=== PATIENT | female | born 1980 | race Caucasian/White ===

== ENCOUNTER 2016-12-26 00:18 | Emergency (ER) | payer OTHER ==
[~2016-12-26] VITALS: Ht 162.6 cm; Wt 134.3 kg
[~2016-12-26 00:18] MED LIST: ACHD5005 PO; ALBU8.5H4 IH; ATEN50TA; CHLO50TA2 PO; CLON1TAB3 PO; HYDR-1231 PO; HYDR-3714 PO; HYDR-87 PO; HYDROCHLOROTHIAZIDE; IBUP-2055 PO; LEVO500T2 PO; LEVO500T80 PO; LNS30CCR; METF-478 PO; METF500T4 PO; METR500T PO; METR500T21 PO; NAPR-243 PO; Omnicef; POTA10CA43 PO; PRD20T PO; PRED20TA PO; RNT150T PO; SULF-222 PO; SULF1TAB35 PO; VNL37.5T PO; ZOLP5TAB PO; ZOLP5TAB7 PO
--- OUTSIDE RECORDS SUMMARY | 2016-12-26 00:24 | XMS REPORT | Continuity of Care Document ---
Author Author [facility] Organization [facility] Address Unknown Phone Unavailable Care Team Providers Care Medical Records Custodian Name Role Phone [facility] OF PCP Insurance Providers Payer Name Policy Number Subscriber Name Relationship [employer] [id number] Fatimah Longo Self / Same As Patient Advance Directives Directive Response Recorded Date/Time Advance Directives No 09/02/16 9:10pm Health Care Power of Sound Person No 09/02/16 9:10pm Organ Donor No 09/02/16 9:10pm Resuscitation Status Full Code 09/02/16 9:10pm Chief Complaint and Reason for Visit Chief Complaint Abdominal/GI Problems Reason for Visit [id number] Problems Active Problems Medical Problem Onset Date Status Bronchospasm with bronchitis, acute Unknown Acute Cellulitis Unknown Acute Cellulitis Unknown Acute Contusion of lower back Unknown Acute Diverticulitis Unknown Acute Spider bite Unknown Acute UTI (urinary tract infection) Unknown Acute Medications Current Home Medications Medication Dose Units Route Directions Days/Qty Instructions Start Date Chlorthalidone 50 Mg 30 09/02/16 Metformin Hcl 500 Mg 500 Mg Oral 09/02/16 Metronidazole 500 Mg 500 Mg Oral Four Times Daily for For Infection 40 09/02/16 Levofloxacin 500 Mg 500 Mg Oral Daily for Infection 10 09/02/16 Hydrocodone/Ibuprofen 1 Each 1 Each Oral Every 4HRS for Pain 20 Past Home Medications Medication Directions Ordered Status Acetaminophen/Hydrocodone Bitart 1 Each Tablet, 1 - 2 Each Oral Every 6 Hours as needed 02/27/12 Discontinued Trimethoprim/Sulfamethoxazole 1 Each Tablet, 1 Each Oral Twice A Day Discontinued Hydrocodone Bit/Acetaminophen 1 Tab Tablet, 1-2 Tab Oral Every 6 Hours as needed for Pain 11/17/14 Discontinued [Hydrochlorothiazide] , 11/17/14 Discontinued Potassium Chloride (Micro K) 10 Meq Capsule.sa, 1 Each Oral Daily With Food 05/09/15 Discontinued Trimethoprim/Sulfamethoxazole 1 Ea Tablet, 1 Tab Oral Twice A Day 05/09/15 Discontinued Hydrocodone Bit/Acetaminophen 1 Tab Tablet, 1 Tab Oral Every 4HRS as needed for Pain 05/09/15 Discontinued Prednisone 20 Mg Tablet, 40 Mg Oral Daily 05/09/15 Discontinued Albuterol Sulfate 8.5 Gm Hfa.aer.ad, 8.5 Gm Inhalation As Needed 08/29/15 Discontinued [Omnicef] , 300 Twice A Day 08/29/15 Discontinued Prednisone 20 Mg Tab, 20 Mg Oral As Directed 08/29/15 Discontinued Atenolol 50 Mg Tablet, 09/02/16 Discontinued Social History Social History Problem Response Recorded Date/Time Alcohol Use Denies Use 08/29/2015 3:29pm Recreational Drug Use No 08/29/2015 3:29pm Recent Foreign Travel No 09/02/2016 9:10pm Recent Infectious Disease Exposure No 09/02/2016 9:10pm Hospitalization with Isolation Denies 09/02/2016 9:10pm Smoking Status Current Everyday Smoker 09/02/2016 9:10pm Do you dip or chew tobacco? No 08/29/2015 3:29pm Type Used Cigarettes 09/02/2016 9:10pm Hospitalization with Isolation Denies 09/02/2016 9:10pm Query Response Start Date Stop Date Smoking Status Current Everyday Smoker Hospital Discharge Instructions No hospital discharge instructions. Plan of Care Discharge Date 09/03/16 12:16am Disposition 01 HOME, SELF-CARE Condition at Discharge Stable Instructions/Education Provided Diverticulitis (ED) Urinary Tract Infection in Women (ED) Prescriptions See Medication Section Referrals [facility] - Primary Care Physician Additional Instructions/Education CLEAR LIQUIDS--WATER, BROTH, JELLO, GATORADE NO FOOD UNTIL CLEARED BY YOUR DR TAKE YOUR REGULAR MEDICATIONS PRESCRIBED FOLLOW UP WITH [facility] IN 2 DAYS RETURN TO ER IF WORSE All discharge instructions reviewed with patient and/or family. Voiced understanding. Functional Status No functional status results. Allergies, Adverse Reactions, Alerts Allergen Type Severity Reaction Status Last Updated tramadol HCl Allergy Mild HIVES Active 05/11/12 Immunizations No immunization records. Vital Signs Acute Vital Signs Vital Response Date/Time Temperature (Fahrenheit) 97.4 degrees F (97.6 - 99.5) 09/02/2016 9:10pm Temperature (Calculated Celsius) 36.94498 degrees C (36.4 - 37.5) 09/02/2016 9:10pm Pulse Rate (adult) 84 bpm (60 - 90) 09/03/2016 12:05am Respiratory Rate 18 bpm (12 - 24) 09/03/2016 12:05am O2 Sat by Pulse Oximetry 98 % (88 - 100) 09/03/2016 12:05am Blood Pressure 148/80 mm Hg 09/03/2016 12:05am Blood Pressure Mean 108 mm Hg 09/02/2016 9:10pm Pain Numeric Pain Scale 7 09/02/2016 11:31pm Height (Feet) 5 feet 09/02/2016 9:10pm Height (Inches) 4 inches 09/02/2016 9:10pm Height (Calculated Centimeters) 162.460402 cm 09/02/2016 9:10pm Weight (Pounds) 290 pounds 09/02/2016 9:10pm Weight (Calculated Grams) 846647.566 gm 09/02/2016 9:10pm Weight (Calculated Kilograms) 131.654735 kilograms 09/02/2016 9:10pm Calculated BMI 48.75 09/02/2016 9:10pm Capillary Refill Capillary Refill Less Than 3 Seconds 09/02/2016 9:10pm Results Laboratory Results Test Name Result Units Flags Reference Collection Date/Time Result Date/ Time Comments White Blood Count 13.7 10^3/uL H 4.3-11.0 09/02/2016 9:40pm 09/02/2016 10 :24pm Red Blood Count 4.91 10^6/uL 4.35-5.85 09/02/2016 9:40pm 09/02/2016 10: 24pm Hemoglobin 15.1 G/DL 11.5-16.0 09/02/2016 9:40pm 09/02/2016 10:24pm Hematocrit 44 % 35-52 09/02/2016 9:40pm 09/02/2016 10:24pm Mean Corpuscular Volume 90 FL 80-99 09/02/2016 9:40pm 09/02/2016 10: 24pm Mean Corpuscular Hemoglobin 31 PG 25-34 09/02/2016 9:40pm 09/02/2016 10 :24pm Mean Corpuscular Hemoglobin Concent 34 G/DL 32-36 09/02/2016 9:40pm 04/2016 10:24pm Red Cell Distribution Width 13.0 % 10.0-14.5 09/02/2016 9:40pm 2015 10:24pm Platelet Count 324 10^3/uL 130-400 09/02/2016 9:40pm 09/02/2016 10: 24pm Mean Platelet Volume 10.6 FL H 7.4-10.4 09/02/2016 9:40pm 09/02/2016 10: 24pm Neutrophils (%) (Auto) 60 % 42-75 09/02/2016 9:40pm 09/02/2016 10:24pm Lymphocytes (%) (Auto) 27 % 12-44 09/02/2016 9:40pm 09/02/2016 10:24pm Monocytes (%) (Auto) 10 % 0-12 09/02/2016 9:40pm 09/02/2016 10:24pm Eosinophils (%) (Auto) 3 % 0-10 09/02/2016 9:40pm 09/02/2016 10:24pm Basophils (%) (Auto) 1 % 0-10 09/02/2016 9:40pm 09/02/2016 10:24pm Neutrophils # (Auto) 8.2 X 10^3 H 1.8-7.8 09/02/2016 9:40pm 09/02/2016 10 :24pm Lymphocytes # (Auto) 3.7 X 10^3 1.0-4.0 09/02/2016 9:40pm 09/02/2016 10 :24pm Monocytes # (Auto) 1.4 X 10^3 H 0.0-1.0 09/02/2016 9:40pm 09/02/2016 10: 24pm Eosinophils # (Auto) 0.4 10^3/uL H 0.0-0.3 09/02/2016 9:40pm 09/02/2016 10:24pm Basophils # (Auto) 0.1 10^3/uL 0.0-0.1 09/02/2016 9:40pm 09/02/2016 10: 24pm Urine Color YELLOW 09/02/2016 9:04pm 09/02/2016 9:34pm Urine Clarity CLEAR 09/02/2016 9:04pm 09/02/2016 9:34pm Urine pH 7 5-9 09/02/2016 9:04pm 09/02/2016 9:34pm Urine Specific [place] 1.010 * 1.016-1.022 09/02/2016 9:04pm 2015 9:34pm Urine Protein NEGATIVE NEGATIVE 09/02/2016 9:04pm 09/02/2016 9:34pm Urine Glucose (UA) NEGATIVE NEGATIVE 09/02/2016 9:04pm 09/02/2016 9: 34pm Urine RBC (Auto) 2+ * NEGATIVE 09/02/2016 9:04pm 09/02/2016 9:34pm Urine Ketones NEGATIVE NEGATIVE 09/02/2016 9:04pm 09/02/2016 9:34pm Urine Nitrite NEGATIVE NEGATIVE 09/02/2016 9:04pm 09/02/2016 9:34pm Urine Bilirubin NEGATIVE NEGATIVE 09/02/2016 9:04pm 09/02/2016 9: 34pm Urine Urobilinogen 1 MG/DL NORMAL 09/02/2016 9:04pm 09/02/2016 9:34pm Urine Leukocyte Esterase 3+ * NEGATIVE 09/02/2016 9:04pm 09/02/2016 9: 34pm Urine RBC 2-5 /HPF * 09/02/2016 9:04pm 09/02/2016 9:34pm Urine WBC 10-25 /HPF * 09/02/2016 9:04pm 09/02/2016 9:34pm Urine Bacteria FEW /HPF * 09/02/2016 9:04pm 09/02/2016 9:34pm Urine Squamous Epithelial Cells 5-10 /HPF 09/02/2016 9:04pm 2015 9:34pm Urine Crystals NONE /LPF 09/02/2016 9:04pm 09/02/2016 9:34pm Urine Casts NONE /LPF 09/02/2016 9:04pm 09/02/2016 9:34pm Urine Mucus NEGATIVE /LPF 09/02/2016 9:04pm 09/02/2016 9:34pm Urine Culture Indicated YES 09/02/2016 9:04pm 09/02/2016 9:34pm Sodium Level 139 MMOL/L 135-145 09/02/2016 9:40pm 09/02/2016 10:18pm Potassium Level 3.4 MMOL/L L 3.6-5.0 09/02/2016 9:40pm 09/02/2016 10: 18pm Chloride Level 105 MMOL/L 98-107 09/02/2016 9:40pm 09/02/2016 10:18pm Carbon Dioxide Level 21 MMOL/L 21-32 09/02/2016 9:40pm 09/02/2016 10: 18pm Anion Gap 13 MMOL/L 5-14 09/02/2016 9:40pm 09/02/2016 10:18pm Blood Urea Nitrogen 13 MG/DL 7-18 09/02/2016 9:40pm 09/02/2016 10:18pm Creatinine 0.73 MG/DL 0.60-1.30 09/02/2016 9:40pm 09/02/2016 10:18pm BUN/Creatinine Ratio 18 09/02/2016 9:40pm 09/02/2016 10:18pm Estimat Glomerular Filtration Rate > 60 09/02/2016 9:40pm 2015 10:18pm GFR INTERPRETIVE DATA UNITS FOR ESTIMATED GFR (eGFR): mL/min/1.73 M2 REFERENCE RANGE FOR ESTIMATED GFR (eGFR) eGFR NORMAL eGFR >60 MODERATELY DECREASED eGFR 30-59 SEVERLY DECREASED eGFR 15-29 KIDNEY FAILURE <15 (OR DIALYSIS) Glucose Level 97 MG/DL 70-105 09/02/2016 9:40pm 09/02/2016 10:18pm Calcium Level 8.7 MG/DL 8.5-10.1 09/02/2016 9:40pm 09/02/2016 10:18pm Total Bilirubin 0.4 MG/DL 0.1-1.0 09/02/2016 9:40pm 09/02/2016 10:18pm Alkaline Phosphatase 73 U/L 40-136 09/02/2016 9:40pm 09/02/2016 10: 18pm Aspartate Amino Transf (AST/SGOT) 15 U/L 5-34 09/02/2016 9:40pm 2015 10:18pm Alanine Aminotransferase (ALT/SGPT) 20 U/L 0-55 09/02/2016 9:40pm 09/02 10:18pm Total Protein 6.5 G/DL 6.4-8.2 09/02/2016 9:40pm 09/02/2016 10:18pm Albumin 3.9 G/DL 3.2-4.5 09/02/2016 9:40pm 09/02/2016 10:18pm Amylase Level 31 U/L 25-125 09/02/2016 9:40pm 09/02/2016 10:18pm Lipase 26 U/L 8-78 09/02/2016 9:40pm 09/02/2016 10:18pm Procedures No known history of procedures. Encounters Encounter Location Arrival/Admit Date Discharge/Depart Date Attending Provider Departed Emergency Room [facility] 09/02/16 8:04pm 09/03 12:16am PRINCESS SEALS DO Recent Diagnosis
[2016-12-26] MEDS ORDERED: ATEN25TA PO (00:32)
[2016-12-26] MEDS ORDERED: PROM25TA14 PO (00:32)
[2016-12-26 01:46] LABS: BASOPHILS % (AUTO) 0 % (0-10); EOSINOPHILS # (AUTO) 0.5 10^3/uL (0.0-0.3); EOSINOPHILS % (AUTO) 4 % (0-10); LYMPHOCYTES # (AUTO) 3.5 X 10^3 (1.0-4.0); LYMPHOCYTES % (AUTO) 32 % (12-44); MEAN CORPUSCULAR HEMOGLOBIN 30 PG (25-34); MEAN CORPUSCULAR HGB CONC 34 G/DL (32-36); MEAN CORPUSCULAR VOLUME 90 FL (80-99); MEAN PLATELET VOLUME 10.1 FL (7.4-10.4); MONOCYTES # (AUTO) 1.1 X 10^3 (0.0-1.0); MONOCYTES % (AUTO) 10 % (0-12); NEUTROPHILS # (AUTO) 5.8 X 10^3 (1.8-7.8); NEUTROPHILS % (AUTO) 54 % (42-75); PLATELET COUNT 310 10^3/uL (130-400); RED BLOOD COUNT 4.71 10^6/uL (4.35-5.85); RED CELL DISTRIBUTION WIDTH 13.3 % (10.0-14.5); WHITE BLOOD COUNT 10.9 10^3/uL (4.3-11.0)
[2016-12-26 02:05] LABS: ALANINE AMINOTRANSFERASE 23 U/L (0-55); ALBUMIN 3.7 G/DL (3.2-4.5); ANION GAP 9 MMOL/L (5-14); ASPARTATE AMINO TRANSFERASE 17 U/L (5-34); BILIRUBIN,TOTAL 0.2 MG/DL (0.1-1.0); BLOOD UREA NITROGEN 15 MG/DL (7-18); BUN/CREATININE RATIO 21; CALCIUM 8.4 MG/DL (8.5-10.1); CARBON DIOXIDE 22 MMOL/L (21-32); CHLORIDE 107 MMOL/L (98-107); GFR ESTIMATED > 60; GLUCOSE 109 MG/DL (70-105); POTASSIUM 3.8 MMOL/L (3.6-5.0); SODIUM 138 MMOL/L (135-145); TOTAL PROTEIN 6.2 G/DL (6.4-8.2); hs C REACTIVE PROTEIN 1.36 MG/DL (0.00-0.50)
[2016-12-26] MEDS ORDERED: AZITHROMYCIN 250 MG TAB (ZITHROMAX) PO ONE (02:30)
[2016-12-26] MEDS ORDERED: KETOROLAC 30 MG/ML VIAL IVP ONE (02:30)
--- NOTE | 2016-12-26 02:32 | ED Chest Pain ---
General Chief Complaint: Chest Wall/Rib Pain Stated Complaint: R SIDE AND BACK PAIN Nursing Triage Note: right sided chest wall pain since waking up this am. denies injury. Nursing Sepsis Screen: No Definite Risk Source: patient Exam Limitations: no limitations History of Present Illness Time seen by provider: 00:31 Initial Comments This 36-year-old woman presents to the emergency room with complaints of pain in the chest just right of center. It is worse with inspiration. She reports it feels similar to prior episodes of costochondritis and pneumonia. She is markedly hypertensive but reports blood pressure measured at home was not high. She has not yet taken her evening dose of blood pressure medications. She denies fever. She is a smoker. She has a history of COPD. She has had some cough for several days. Allergies and Home Medications Allergies Coded Allergies: tramadol HCl (Verified Allergy, Mild, HIVES, 05/11/12) Home Medications Atenolol 25 Mg Tablet 25 MG PO DAILY (Reported) Azithromycin 250 Mg Tablet #4 250 MG PO DAILY Prescribed by: JERZY CHA on 12/26/16 0241 Clonazepam 1 Mg Tablet 0.5-1 MG PO BID (Reported) TAKES 1/2 TO 1 OF A (1 MG) TABLET Ibuprofen 200 Mg Tablet 400-800 MG PO Q8H PRN PRN PAIN (Reported) TAKES 2-4 (200 MG) TABLETS Promethazine HCl 25 Mg Tablet 25 MG PO Q6H PRN PRN NAUSEA/VOMITING (Reported) Venlafaxine HCl 37.5 Mg Tab #60 37.5 MG PO BID Prescribed by: ALCON MARTINO on 10/27/16 0915 Review of Systems Constitutional: no symptoms reported EENTM: No Symptoms Reported Respiratory: See HPI Cardiovascular: See HPI Gastrointestinal: No Symptoms Reported Genitourinary: No Symptoms Reported Musculoskeletal: no symptoms reported Skin: no symptoms reported Psychiatric/Neurological: No Symptoms Reported Endocrine: No Symptoms Reported Past Jwrwbca-[id number]-Uzxfeq Hx Patient Social History Alcohol Use: Rarely Uses Recreational Drug Use: No Smoking Status: Current Everyday Smoker Type Used: Cigarettes Recent Foreign Travel: No Contact w/Someone Who Travel: No Recent Infectious Disease Expo: No Recent Hopitalizations: No Physical Abuse Screen: No Sexual Abuse: No Immunizations Up To Date Tetanus Booster (TDap): More than 5yrs PED Vaccines UTD: Yes Seasonal Allergies Seasonal Allergies: Yes Surgeries HX Surgeries: Yes (WART REMOVALS; "CYST" REMOVALS FROM SKIN OF VARIOUS PARTS OF BODY) Respiratory Hx Respiratory Disorders: Yes Respiratory Disorders: Asthma, Pneumonia, COPD Cardiovascular Hx Cardiac Disorders: Yes Cardiac Disorders: Chronic Edema/Swelling, Hypertension Neurological Hx Neurological Disorders: Yes Neurological Disorders: Headaches /Migraines Reproductive System : No Hx Reproductive Disorders: Yes Sexually Transmitted Disease: No HIV/AIDS: No Female Reproductive Disorders: Polycystic Ovarian Dis Genitourinary Hx Genitourinary Disorders: No Gastrointestinal Hx Gastrointestinal Disorders: Yes Gastrointestinal Disorders: Colitis, Gastroesophageal Reflux, Diverticulosis Musculoskeletal Hx Musculoskeletal Disorders: Yes (CHRONIC BILATERAL KNEE PAIN, chostrochrondritis) Musculoskeletal Disorders: Chronic Back Pain Endocrine Hx Endocrine Disorders: Yes ("PRE" DIABETIC--DOES NOT CHECK BLOOD SUGAR; OBESITY) Endocrine Disorders: Diabetes, Non-Insulin dep HEENT HX ENT Disorders: No Cancer Hx Cancer: No Psychosocial Hx Psychiatric Problems: Yes Behavioral Health Disorders: Sleep Difficulties, Depression Integumentary HX Skin/Integumentary Disorder: No Blood Transfusions Hx Blood Disorders: No Adverse Reaction to a Blood Tr: No Family Medical History Significant Family History: No Pertinent Family Hx Family Medial History: Alcoholism 19 FATHER 19 MOTHER Arthritis 19 MOTHER Asthma 19 MOTHER Cancer of mouth 19 FATHER Cataracts 19 MOTHER Dementia 19 MOTHER Diabetes mellitus Drug abuse 19 FATHER 19 MOTHER Fibrocystic disease of breast 19 MOTHER Headache disorder 19 MOTHER G8 SISTER Hypertension 19 MOTHER Respiratory disorder 19 FATHER 19 MOTHER Physical Exam Vital Signs Vital Sign - Last 12Hours 12/26/16 00:33 Temp 98.3 Pulse 98 Resp 16 B/P 198/119 Pulse Ox 94 O2 Delivery Room Air Capillary Refill : Less Than 3 Seconds General Appearance: No Apparent Distress WD/WN Obese HEENT: PERRL/EOMI Normal ENT Inspection Pharynx Normal Neck: Normal Inspection Respiratory: Lungs Clear Normal Breath Sounds No Accessory Muscle Use No Respiratory Distress Other (Anterior chest wall mildly tender to palpation) Cardiovascular: Regular Rate, Rhythm No Edema No Murmur Gastrointestinal: Normal Bowel Sounds Non Tender Soft Extremity: Normal Inspection Non Tender No Calf Tenderness No Pedal Edema Other (Negative Chuck) Neurologic/Psychiatric: Alert Oriented x3 No Motor/Sensory Deficits 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 Norm as Tested Skin: Normal Color Warm/Dry Progress/Results/Core Measures Results/Orders Lab Results Laboratory Tests Test 12/26/16 01:40 Range/Units Alanine Aminotransferase (ALT/SGPT) 23 0-55 U/L Albumin 3.7 3.2-4.5 G/DL Alkaline Phosphatase 83 40-136 U/L Anion Gap 9 5-14 MMOL/L Aspartate Amino Transf (AST/SGOT) 17 5-34 U/L B-Type Natriuretic Peptide 13.4 <100.0 PG/ML BUN/Creatinine Ratio 21 Basophils # (Auto) 0.0 0.0-0.1 10^3/uL Basophils (%) (Auto) 0 0-10 % Blood Urea Nitrogen 15 7-18 MG/DL C-Reactive Protein High Sensitivity 1.36 H 0.00-0.50 MG/DL Calcium Level 8.4 L 8.5-10.1 MG/DL Carbon Dioxide Level 22 21-32 MMOL/L Chloride Level 107 98-107 MMOL/L Creatinine 0.70 0.60-1.30 MG/DL D-Dimer 0.48 0.00-0.49 UG/ML Eosinophils # (Auto) 0.5 H 0.0-0.3 10^3/uL Eosinophils (%) (Auto) 4 0-10 % Estimat Glomerular Filtration Rate > 60 Glucose Level 109 H 70-105 MG/DL Hematocrit 43 35-52 % Hemoglobin 14.3 11.5-16.0 G/DL Lymphocytes # (Auto) 3.5 1.0-4.0 X 10^3 Lymphocytes (%) (Auto) 32 12-44 % Mean Corpuscular Hemoglobin 30 25-34 PG Mean Corpuscular Hemoglobin Concent 34 32-36 G/DL Mean Corpuscular Volume 90 80-99 FL Mean Platelet Volume 10.1 7.4-10.4 FL Monocytes # (Auto) 1.1 H 0.0-1.0 X 10^3 Monocytes (%) (Auto) 10 0-12 % Neutrophils # (Auto) 5.8 1.8-7.8 X 10^3 Neutrophils (%) (Auto) 54 42-75 % Platelet Count 310 130-400 10^3/uL Potassium Level 3.8 3.6-5.0 MMOL/L Red Blood Count 4.71 4.35-5.85 10^6/uL Red Cell Distribution Width 13.3 10.0-14.5 % Sodium Level 138 135-145 MMOL/L Total Bilirubin 0.2 0.1-1.0 MG/DL Total Protein 6.2 L 6.4-8.2 G/DL White Blood Count 10.9 4.3-11.0 10^3/uL My Orders Orders-JERZY PEÑALOZA MD Chest Pa/Lat (2 View) (12/26/16 00:31) BNP (12/26/16 01:23) Cbc With Automated Diff (12/26/16 01:23) Comprehensive Metabolic Panel (12/26/16 01:23) Hs C Reactive Protein (12/26/16 01:23) Fibrin Degradation Products (12/26/16 01:23) Saline Lock/Iv-Start (12/26/16 01:23) Ketorolac Injection (Toradol Injection) (12/26/16 02:30) Azithromycin Tablet (Zithromax Tablet) (12/26/16 02:30) Medications Given in ED Vital Signs/I&O Vital Sign - Last 12Hours 12/26/16 12/26/16 00:33 02:43 Temp 98.3 97.9 Pulse 98 83 Resp 16 18 B/P 198/119 Pulse Ox 94 93 O2 Delivery Room Air Room Air Blood Pressure Mean: 145 Progress Note : Progress Note Workup was essentially unremarkable. Patient was given Toradol for her pain. Blood pressure was improving with treatment of pain. She was instructed to take her medications when returning home. Azithromycin was initiated due to concern for possible early pulmonary infection with her risk factors of COPD, smoking, obesity, etc. Diagnostic Imaging Diagonstic Imaging: Xray Plain Films/CT/US/NM/MRI: chest Comments Chest x-ray viewed by me. Report not yet available. No acute abnormalities appreciated. Departure Impression Impression: Primary Impression: Atypical chest pain Disposition: HOME, SELF-CARE Condition: Improved Departure-Patient Inst. Decision time for Depature: 02:15 Referrals: [facility] (PCP/Family) Primary Care Physician Patient Instructions: Chest Pain That Is Not Caused by the Heart (DC) Add. Discharge Instructions: You may continue taking ibuprofen 800 mg 3 times daily as needed for pain. Complete your antibiotics as prescribed. Return to the emergency room if symptoms worsen. If your blood pressure does not improve with treatment of your pain and resuming atenolol, please follow-up with your primary care provider within the next few days to reassess your blood pressure therapy. All discharge instructions reviewed with patient and/or family. Voiced understanding. Scripts Azithromycin 250 Mg [id number] Mg PO DAILY #4 TAB Prov:JERZY PEÑALOZA MD 12/26/16 JERZY PEÑALOZA MD Dec 26, 2016 02:32
[2016-12-26] MEDS ORDERED: AZIT250T5 PO ×2 (02:40→02:41)
[2016-12-26 02:43] VITALS: BP 190/102
--- NOTE | 2016-12-26 08:08 | Diagnostic Imaging Report ---
INDICATION: Shortness of air, chest tightness FINDINGS: There is no focal consolidation. The heart size upper limit stable. No gross overdistention of the vascularity. No effusion or pneumothorax. IMPRESSION: No acute appearing abnormality. Dictated by: Dictated on workstation # [id number]
== END 2016-12-26 02:36 | disposition home or self-care (01) ==
LOC: EDUNIT# 00:18 → ER 00:20
DX: R07.89 Other chest pain (principal); I10 Essential (primary) hypertension; E11.9 Type 2 diabetes mellitus without complications; F17.210 Nicotine dependence, cigarettes, uncomplicated; Z79.899 Other long term (current) drug therapy
CPT/HCPCS: 36415; 71020; 80053; 83880; 85025; 85379; 86141; 96374

== ENCOUNTER → 2017-02-23 | Outpatient (CLI) | payer OTHER ==
[~2017-02-23] MED LIST changes: +ATEN25TA PO; +ATEN50TA PO; +AZIT250T5 PO; +CIPR-225 PO; +DOCU-143 PO; +HYDR-3812 PO; +HYDR-700 PO; +HYDR25TA4 PO; +IBUP-1780 PO; +PROM25TA14 PO
--- NOTE | 2017-02-23 14:20 | Diagnostic Imaging Report ---
INDICATION: Right upper quadrant abdominal pain. TECHNIQUE: Gallbladder sonography performed in the routine fashion. FINDINGS: The liver shows diffuse increased echogenicity compatible with fatty change. The liver is difficult to penetrate, and its evaluation is therefore very limited. Gallbladder shows no gallstones or gallbladder wall thickening. Common duct was not visualized. Pancreas is not seen due to overlying gas. Right kidney shows no hydronephrosis and measured 10.9 cm in length. IMPRESSION: Increased echogenicity of the liver compatible with fatty change, though liver is very difficult to evaluate due to limited penetration. Gallbladder appears unremarkable. Right kidney appears normal. Dictated by: Dictated on workstation # [id number]
== END ==
LOC: RAD 13:12
PROVIDERS: ATTEND Nurse Practitioner Family
DX: R10.11 Right upper quadrant pain (principal)
CPT/HCPCS: 76705

== ENCOUNTER → 2017-02-28 | Outpatient (CLI) | payer OTHER ==
[~2017-02-28] MED LIST changes: +CATHETER FLUSH 10 ML SYR IV PRN
--- NOTE | 2017-02-28 19:59 | Diagnostic Imaging Report ---
EXAMINATION: Hepatobiliary scan with ejection fraction. INDICATION: Right upper quadrant pain. TECHNIQUE: This study was performed following administration of 5.28 mCi of 99m technetium Choletec and one can of Ensure. FINDINGS: The gallbladder ultrasound exam performed on 02/23/2017 failed to show any sign of cholelithiasis or acute cholecystitis. On this study, there is uptake of the radiotracer by the gallbladder before 30 minutes. This would weigh against the diagnosis of acute cholecystitis. There is also extension of the radiotracer into the small bowel indicating that the common bile duct is not obstructed. The ejection fraction is 25.9% (normal greater than 35%). The reason for the diminished ejection fraction is not certain but the possibility of biliary dyskinesia should certainly be considered. IMPRESSION: 1. There is no evidence for acute cholecystitis or for obstruction of the common bile duct. 2. The ejection fraction is 25.9% and below normal limits. Dictated by: Dictated on workstation # [id number]
== END ==
LOC: CARD 12:06
PROVIDERS: ATTEND Nurse Practitioner Family
DX: R10.11 Right upper quadrant pain (principal)
CPT/HCPCS: 78227

== ENCOUNTER 2017-03-17 09:37 | Outpatient (CLI) | payer OTHER ==
[~2017-03-17] VITALS: Ht 162.6 cm; Wt 137.6 kg
[~2017-03-17 09:37] MED LIST changes: -ATEN50TA PO; -CATHETER FLUSH 10 ML SYR IV PRN; -CIPR-225 PO; -DOCU-143 PO; -HYDR-3812 PO; -HYDR-700 PO; -HYDR25TA4 PO; -IBUP-1780 PO
[2017-03-17] MEDS ORDERED: HYDR25TA4 PO (09:48)
[2017-03-17] MEDS ORDERED: ATEN50TA PO (09:48)
[2017-03-17 09:51] VITALS: BP 153/99
[2017-03-17 10:15] LABS: BASOPHILS # (AUTO) 0.1 10^3/uL (0.0-0.1); BASOPHILS % (AUTO) 1 % (0-10); EOSINOPHILS # (AUTO) 0.3 10^3/uL (0.0-0.3); EOSINOPHILS % (AUTO) 3 % (0-10); LYMPHOCYTES # (AUTO) 2.3 X 10^3 (1.0-4.0); LYMPHOCYTES % (AUTO) 22 % (12-44); MEAN CORPUSCULAR HEMOGLOBIN 30 PG (25-34); MEAN CORPUSCULAR HGB CONC 33 G/DL (32-36); MEAN CORPUSCULAR VOLUME 91 FL (80-99); MEAN PLATELET VOLUME 10.5 FL (7.4-10.4); MONOCYTES # (AUTO) 0.8 X 10^3 (0.0-1.0); MONOCYTES % (AUTO) 8 % (0-12); NEUTROPHILS # (AUTO) 6.9 X 10^3 (1.8-7.8); NEUTROPHILS % (AUTO) 67 % (42-75); PLATELET COUNT 294 10^3/uL (130-400); RED BLOOD COUNT 5.05 10^6/uL (4.35-5.85); RED CELL DISTRIBUTION WIDTH 13.3 % (10.0-14.5); WHITE BLOOD COUNT 10.4 10^3/uL (4.3-11.0)
== END 2017-03-17 11:06 | disposition home or self-care (01) ==
LOC: PREOP 09:37
PROVIDERS: ATTEND Surgery
DX: Z01.818 Encounter for other preprocedural examination (principal); K82.8 Other specified diseases of gallbladder
CPT/HCPCS: 36415; 85025; 87081

== ENCOUNTER 2017-03-24 08:00 | Day surgery (SDC) | payer OTHER ==
[~2017-03-24] VITALS: Ht 162.6 cm; Wt 137.6 kg
[~2017-03-24 08:00] MED LIST changes: +ATEN50TA PO; +HYDR25TA4 PO
[2017-03-24] MEDS ORDERED: FAMOTIDINE 20MG/2ML IV (PEPCID) IV ONE (08:15)
[2017-03-24] MEDS ORDERED: LACTATED RINGERS 1,000 ML IV PRN ×2 (08:15→10:54)
[2017-03-24 08:16] VITALS: BP 183/96
--- NOTE | 2017-03-24 08:20 | Progress Note-Pre Operative ---
Pre-Operative Progress Note H&P Reviewed The H&P was reviewed, patient examined and no changes noted. Date H&P Reviewed: Mar 24, 2017 Time H&P Reviewed: 08:19 Pre-Operative Diagnosis: biliary dyskinesia MARCELINA BRYAN DO Mar 24, 2017 8:20 am
[2017-03-24] MEDS ORDERED: ceFAZolin 3 GM/NS 50 ML IVPB IV ONE ×2 (08:45)
[2017-03-24] MEDS ORDERED: LIDOCAINE 1% INJ 20 ML (XYLOCAINE) VIAL ONE (09:20)
[2017-03-24] MEDS ORDERED: BUPIVACAINE 0.5% 30 ML (SENSORCAINE) VIAL ONE (09:20)
[2017-03-24] MEDS ORDERED: DOCU-143 PO (09:37)
[2017-03-24] MEDS ORDERED: HYDR-3812 PO (09:37)
--- NOTE | 2017-03-24 09:39 | Discharge Inst-Simple/Standard ---
Discharge Inst-Standard Discharge Medications New, Converted or Re-Newed RX: RX on Chart Patient Instructions/Follow Up Plan of Care/Instructions/FU: Follow up with Dr. Granados in 2 weeks. Activity as Tolerated: No Discharge Diet: No Restrictions Other Inst to Patient Follow up Appt: Make appointment for 2 weeks. Instructions: No lifting greater than 10 pounds. No strenuous activity. May shower in 24 hours, no tub bath or soaking. Use incentive spirometer at home as directed. No Smoking Skin/Wound Care: May remove bandages. You need to leave the white strips over incision on they will fall off on their own. Symptoms to Report: Appetite Changes, Extremity Discoloration, Numbness/Tingling, Swelling Increased , Bleeding Excessive, Eyesight Changes, Pain Increased, Urine Color Change, Constipation(Persistent), Fever over 101 degree F, Pain/Pressure in chest, Urinating Difficulty, Cough Up/Vomit Blood, Heart Beat Irreg/Pounding, Pain/ Pressure in jaw, Vaginal Bleeding Increase, Cramps in feet or legs, Lightheadedness, Pain/Pressure in shoulder, Diarrhea(Persistent), Memory Changes Suddenly, Questions/Concerns, Weight gain consecutive days, Dizziness/ Fainting, Nausea/Vomiting, Shortness of Breath, Weight gain over 2 pounds. If eyes or skin turn yellow notify physician. If questions or concerns contact your physician Or seek help at emergency department. ALICE MCKINNEY APRN Mar 24, 2017 09:38
[2017-03-24] MEDS ORDERED: MIDAZOLAM 2 MG/2 ML (VERSED) VIAL ONE (09:44)
[2017-03-24] MEDS ORDERED: fentaNYL INJECTION 100 MCG/2 ML AMP ONE (09:44)
[2017-03-24] MEDS ORDERED: LIDOCAINE JELLY 2% (XYLOCAINE) 5 ML TUBE ONE (09:44)
[2017-03-24] MEDS ORDERED: LIDOCAINE PF 2% 10 ML (XYLOCAINE) AMP ONE (09:44)
[2017-03-24] MEDS ORDERED: ONDANSETRON 4 MG/2 ML (SDV) Z0FRAN ONE (09:44)
[2017-03-24] MEDS ORDERED: proPOfol 200 MG/20 ML (DIPRIVAN) VIAL IV ONE (09:44)
[2017-03-24] MEDS ORDERED: ROCURONIUM 50 MG/5 ML (ZEMURON) VIAL IV ONE (09:44)
[2017-03-24] MEDS ORDERED: LACTATED RINGERS 1,000 ML IV ONE (09:44)
[2017-03-24] MEDS ORDERED: NEOSTIGMINE (BLOXIVERZ ) 1 MG/1ML 10 ML VIAL ONE (11:13)
[2017-03-24] MEDS ORDERED: GLYCOPYRROLATE 0.2 MG/ML (ROBINUL) 2 ML VIAL ONE (11:13)
[2017-03-24] MEDS ORDERED: SEVOFLURANE (ULTANE) 15 ML INHAL SOLN ONE ×3 (11:13→11:22)
--- NOTE | 2017-03-24 11:13 | Progress Note-Post Operative ---
Post-Operative Progess Note Surgeon (s)/Box Loader (s) Surgeon MARCELINA BRYAN DO Box Loader: Dr. Sauceda Pre-Operative Diagnosis biliary dyskinesia Post-Operative Diagnosis same Post-Op Procedure Note Date of Procedure: Mar 24, 2017 Name of Procedure Performed: lap edmundo c ioc Description of the Procedure: gallbladder removed Findings of the Procedure adhesions Anesthesia Type general Estimated blood loss (mL): minimal Specimen(s) collected/removed gallbladder MARCELINA BRYAN DO Mar 24, 2017 11:13 am
[2017-03-24] MEDS ORDERED: MEPERIDINE (DEMEROL) INJ 50 MG/ML IVP PRN (11:45)
[2017-03-24] MEDS ORDERED: ONDANSETRON 4 MG/2 ML (SDV) Z0FRAN IVP PRN (11:45)
[2017-03-24] MEDS ORDERED: RT-ALBUTEROL SULF 2.5 MG/3 ML PRE-MIX VIAL INH ONE (11:45)
[2017-03-24] MEDS: fentaNYL INJECTION 100 MCG/2 ML AMP IVP PRN ×3 (11:50→12:03)
[2017-03-24 12:30] VITALS: BP 145/94
[2017-03-24 13:00] VITALS: BP 145/94
[2017-03-24 13:30] VITALS: BP_SYST 140; BP_SYST 183; BP_DIAS 85; BP_DIAS 96
--- NOTE | 2017-03-24 17:05 | Diagnostic Imaging Report ---
EXAMINATION: Intraoperative cholangiogram. Laparoscopic cholecystectomy was performed by Dr. Granados with 4 cc of Omnipaque 300 utilized. INDICATION: Abdominal pain. FLUOROSCOPY TIME: 10 seconds of fluoroscopy time. FINDINGS: There is a normal caliber of the CBD with no filling defects to suggest the stone or obstruction. Prompt emptying into the duodenum is seen. IMPRESSION: No evidence of CBD stones or obstruction. Dictated by: Dictated on workstation # [id number]
--- NOTE | 2017-03-25 04:17 | OPERATIVE REPORT ---
DATE OF SERVICE: 03/24/2017 PREOPERATIVE DIAGNOSIS: Biliary dyskinesia. POSTOPERATIVE DIAGNOSIS: Biliary dyskinesia. PROCEDURE: Laparoscopic cholecystectomy with intraoperative cholangiogram. SURGEON: Marcelina Granados DO FERRYBOAT TICKET TAKER: Charanjit Sauceda DO, to assist in retraction, dissection and closure. ANESTHESIA: General. ESTIMATED BLOOD LOSS: Minimal. COMPLICATIONS: None. INDICATIONS: The patient is a 36-year-old female who has been having symptoms consistent with biliary dyskinesia. She had an ultrasound and a HIDA scan that is consistent with biliary dyskinesia. She understands risks and benefits of procedure and wishes to proceed with the procedure. Consent was signed and in chart. PROCEDURE: The patient was taken to the operating suite. She was prepped and draped in a sterile fashion. A surgical pause was performed. Local anesthetic was infiltrated prior to incisions. An incision was made just superior to the umbilicus. Dissection was taken down to the fascia which was then scored, grasped with Kochers and elevated. The abdomen was then entered. 0 Vicryl was placed on the fascia in a [id number]-fpasm fashion. A balloon trocar was then placed in the abdomen, pneumoperitoneum was achieved. Under direct visualization of the laparoscope a 5 mm trocar was placed in the subxiphoid region and two 5 mm trocars were placed in the right upper quadrant. The liver was slightly enlarged. The gallbladder had some small adhesions to it. These were then bluntly taken down with a [place]. After the gallbladder was grasped and elevated. The cystic duct and cystic artery were then dissected out. A clip was placed on the distal portion of the cystic duct and clips were placed on the proximal and distal portion of the cystic artery. The cystic duct was then partially transected and an Arrow catheter was then inserted and cholangiogram was performed. There was no filling defects and contrast made its way into the duodenum. The Arrow catheter was then removed and clips were placed on the proximal portion of the cystic duct and then the cystic duct was completely transected. The cystic artery was then completely transected. Then, hook cautery was used to dissect the gallbladder from the gallbladder fossa, achieving hemostasis. In retracting the gallbladder, a hole was created in the gallbladder, spilling bile, which was then irrigated and suctioned. Hemostasis had been achieved. The gallbladder was completely removed through the 12 mm trocar site. Copious amount of irrigation was used to irrigate the abdomen. Hemostasis had been achieved. The abdomen was then desufflated, the trocars were removed. The 12 mm fascial defect was closed with the previously placed 0 Vicryl suture. A total of 20 mL of 0.5% Marcaine and 1% lidocaine in a 50/50 ratio was used to anesthetize all of the trocar sites. The skin was then closed using 4-0 Vicryl in a subcuticular fashion. The area was then washed and dried. Mastisol and Steri-Strips were placed. Sterile bandages were applied. The patient tolerated the procedure well without complication. She was taken to the recovery room in stable condition. Job ID: [id number] DocumentID: [id number] Dictated Date: 03/24/2017 14:45:38 Photonics Engineer Date: 03/25/2017 04:17:13 Dictated By: MARCELINA GRANADOS DO
== END 2017-03-24 13:30 | disposition home or self-care (01) ==
LOC: SDC 08:00
PROVIDERS: ATTEND Surgery
DX: K81.1 Chronic cholecystitis (principal)
CPT/HCPCS: 84703; 88304; 94664

== ENCOUNTER 2017-04-06 14:29 | Observation (INO) | payer OTHER ==
[~2017-04-06] VITALS: Ht 162.6 cm; Wt 138.0 kg
[~2017-04-06 14:29] MED LIST changes: +DOCU-143 PO; +HYDR-3812 PO
[2017-04-06 14:56] LABS: BILIRUBIN,URINE NEGATIVE (NEGATIVE); KETONES,URINE NEGATIVE (NEGATIVE); LEUKOCYTE ESTERASE ,URINE 1+ (NEGATIVE); NITRITE,URINE NEGATIVE (NEGATIVE); PH,URINE 6 (5-9); PROTEIN,URINE 1+ (NEGATIVE); UROBILINOGEN,URINE NORMAL (NORMAL)
--- NOTE | 2017-04-06 15:01 | ED Abdominal Pain ---
General Chief Complaint: Abdominal/GI Problems Stated Complaint: PAIN IN LEFT SIDE Nursing Triage Note: AMBULATED TO ROOM 07 WITH COMPLAINTS OF LEFT LOWER ABD PAIN FOR X3 DAYS. STATES IT FEELS LIKE HER DIVERTICULITIS. Sepsis Screen: No Definite Risk Source of Information: Patient History of Present Illness Time Seen By Provider: 14:45 Initial Comments C/O SUPRAPUBIC PAIN, RADIATING TO LLQ AND LEFT FLANK X 3 DAYS PAIN IS CONSTANT, AND WORSE WITH MOVEMENTS OR STRETCHING + NAUSEA, NO VOMITING THOUGHT SHE WAS CONSTIPATED, SO SHE HAS HAD 2 DOSES OF MAG CITRATE AND 3 DOSES OF MILK OF MAGNESIA FOR THE LAST 2 DAYS--NOW WITH WATERY STOOLS, AND HAS HAD 4 TODAY,. NO BLACK/ BLOODY /TARRY STOOLS BEGAN RUNNING FEVER UP TO 100.9 LAST NIGHT NO URINARY SYMPTOMS STATES IT FEELS LIKE DIVERTICULITIS PT SEEN AT [facility] YESTERDAY BY AVA FRANKS, NO TESTS DONE, NO RX PT HAD [facility] 2 WEEKS AGO 03/24/[address] BRYAN SEEN TODAY FOR SCHEDULED POST OP FOLLOW UP, AND STATES HE SENT HER HERE FOR THIS PAIN--NO CALL FROM HIM. PCP: [facility], AVA FRANKS Allergies and Home Medications Allergies Coded Allergies: tramadol HCl (Verified Allergy, Mild, HIVES, 03/17/17) Home Medications Atenolol 50 Mg Tablet, 75 MG PO DAILY, (Reported) Clonazepam 1 Mg Tablet, 0.5-1 MG PO BID, (Reported) TAKES 1/2 TO 1 OF A (1 MG) TABLET Docusate Sodium 100 Mg Capsule, 100 MG PO BID, #60 Prescribed by: ALICE LEE on 03/24/17 0937 Hydrochlorothiazide 25 Mg Tablet, 25 MG PO DAILY, (Reported) Hydrocodone/Acetaminophen 1 Each Tablet, 1 EA PO Q4-6HR PRN for PAIN-MODERATE TO SEVERE, #30 Ref 0 Prescribed by: ALICE LEE on 03/24/17 0937 Review of Systems Constitutional: see HPI, fever EENTM: No Symptoms Reported Respiratory: No Symptoms Reported Cardiovascular: No Symptoms Reported Gastrointestinal: See HPI, Abdominal Pain, Diarrhea, Nausea, Denies Poor Fluid Intake, Denies Rectal Bleeding, Denies Vomiting Genitourinary: No Symptoms Reported Musculoskeletal: no symptoms reported Skin: no symptoms reported Psychiatric/Neurological: No Symptoms Reported Endocrine: No Symptoms Reported Hematologic/Lymphatic: No Symptoms Reported Past Vqwbwtp-Nllqle-Lzqmke Hx Patient Social History Alcohol Use: Rarely Uses Recreational Drug Use: Yes (THC IN PAST) Smoking Status: Current Everyday Smoker (UP TO 1 PPD) Type Used: Cigarettes Recent Foreign Travel: No Contact w/Someone Who Travel: No Recent Infectious Disease Expo: No Recent Hopitalizations: No Immunizations Up To Date Tetanus Booster (TDap): More than 5yrs PED Vaccines UTD: Yes Seasonal Allergies Seasonal Allergies: Yes (MILD) Surgeries HX Surgeries: Yes (WART REMOVALS; "CYST" REMOVALS FROM SKIN OF VARIOUS PARTS OF BODY) Surgeries: Gallbladder Respiratory Hx Respiratory Disorders: Yes Respiratory Disorders: Asthma Cardiovascular Hx Cardiac Disorders: Yes (SWELLING AT TIMES) Cardiac Disorders: Chronic Edema/Swelling, Hypertension Neurological Hx Neurological Disorders: Yes Neurological Disorders: Headaches /Migraines Reproductive System : No Hx Reproductive Disorders: Yes Sexually Transmitted Disease: No HIV/AIDS: No Female Reproductive Disorders: Menstrual Problems, Polycystic Ovarian Dis Genitourinary Hx Genitourinary Disorders: No Gastrointestinal Hx Gastrointestinal Disorders: Yes (SANTORO DISEASE-FATTY LIVER) Gastrointestinal Disorders: Colitis, Gastroesophageal Reflux, Diverticulosis Musculoskeletal Hx Musculoskeletal Disorders: Yes (CHRONIC BILATERAL KNEE PAIN, chostrochrondritis) Musculoskeletal Disorders: Chronic Back Pain Endocrine Hx Endocrine Disorders: Yes ("PRE" DIABETIC--DOES NOT CHECK BLOOD SUGAR; OBESITY) Endocrine Disorders: Diabetes, Non-Insulin dep HEENT HX ENT Disorders: Yes (GLASSES) Loss of Vision: Bilateral Hearing Impairment: Denies Cancer Hx Cancer: No Psychosocial Hx Psychiatric Problems: Yes Behavioral Health Disorders: Sleep Difficulties, Depression Integumentary HX Skin/Integumentary Disorder: No Blood Transfusions Hx Blood Disorders: No Adverse Reaction to a Blood Tr: No Family Medical History Significant Family History: No Pertinent Family Hx Family Medial History: Alcoholism 19 FATHER 19 MOTHER Arthritis 19 MOTHER Asthma 19 MOTHER Cancer of mouth 19 FATHER Cataracts 19 MOTHER Dementia 19 MOTHER Diabetes mellitus Drug abuse 19 FATHER 19 MOTHER Fibrocystic disease of breast 19 MOTHER Headache disorder 19 MOTHER G8 SISTER Hypertension 19 MOTHER Respiratory disorder 19 FATHER 19 MOTHER Physical Exam Vital Signs VS - Last 72 Hours, by Label 04/06/17 14:45 Temp 96.3 Pulse 117 Resp 16 B/P (MAP) 161/90 Pulse Ox 97 Capillary Refill : Less Than 3 Seconds General Appearance: WD/WN, no apparent distress, obese Neck: normal inspection Respiratory: normal breath sounds, no respiratory distress, no accessory muscle use Cardiovascular: normal peripheral pulses, regular rate, rhythm, no edema, no JVD, no murmur Gastrointestinal: normal bowel sounds, soft, no organomegaly, no pulsatile mass , tenderness (SUPRAPUBIC, LLQ AND LEFT MID ABDOMEN WITH MODERATE TENDERNESS) Extremities: normal inspection Back: CVA tenderness (L) Neurologic/Psychiatric: casing fluid tender II-XII nml as tested, no motor/sensory deficits, alert, normal mood/affect, oriented x 3 Skin: normal color, warm/dry Progress/Results/Core Measures Results/Orders Lab Results Laboratory Tests Test 04/06/17 14:46 04/06/17 15:15 Range/Units Urine Color YELLOW Urine Clarity SLIGHTLY CLOUDY Urine pH 6 5-9 Urine Specific Raymond 1.015 L 1.016-1.022 Urine Protein 1+ H NEGATIVE Urine Glucose (UA) NEGATIVE NEGATIVE Urine Ketones NEGATIVE NEGATIVE Urine Nitrite NEGATIVE NEGATIVE Urine Bilirubin NEGATIVE NEGATIVE Urine Urobilinogen NORMAL NORMAL MG/DL Urine Leukocyte Esterase 1+ H NEGATIVE Urine RBC (Auto) 3+ H NEGATIVE Urine RBC 0-2 /HPF Urine WBC 0-2 /HPF Urine Squamous Epithelial Cells 5-10 /HPF Urine Crystals NONE /LPF Urine Bacteria TRACE /HPF Urine Casts NONE /LPF Urine Mucus NEGATIVE /LPF Urine Culture Indicated NO White Blood Count 16.2 H 4.3-11.0 10^3/uL Red Blood Count 5.23 4.35-5.85 10^6/uL Hemoglobin 15.8 11.5-16.0 G/DL Hematocrit 47 35-52 % Mean Corpuscular Volume 91 80-99 FL Mean Corpuscular Hemoglobin 30 25-34 PG Mean Corpuscular Hemoglobin Concent 33 32-36 G/DL Red Cell Distribution Width 13.1 10.0-14.5 % Platelet Count 332 130-400 10^3/uL Mean Platelet Volume 10.4 7.4-10.4 FL Neutrophils (%) (Auto) 71 42-75 % Lymphocytes (%) (Auto) 19 12-44 % Monocytes (%) (Auto) 7 0-12 % Eosinophils (%) (Auto) 2 0-10 % Basophils (%) (Auto) 0 0-10 % Neutrophils # (Auto) 11.5 H 1.8-7.8 X 10^3 Lymphocytes # (Auto) 3.1 1.0-4.0 X 10^3 Monocytes # (Auto) 1.2 H 0.0-1.0 X 10^3 Eosinophils # (Auto) 0.3 0.0-0.3 10^3/uL Basophils # (Auto) 0.1 0.0-0.1 10^3/uL Neutrophils % (Manual) 64 % Lymphocytes % (Manual) 31 % Monocytes % (Manual) 1 % Eosinophils % (Manual) 4 % Basophils % (Manual) 0 % Band Neutrophils 0 % Blood Morphology Comment NORMAL Sodium Level 140 135-145 MMOL/L Potassium Level 4.0 3.6-5.0 MMOL/L Chloride Level 106 98-107 MMOL/L Carbon Dioxide Level 27 21-32 MMOL/L Anion Gap 7 5-14 MMOL/L Blood Urea Nitrogen 10 7-18 MG/DL Creatinine 0.73 0.60-1.30 MG/DL Estimat Glomerular Filtration Rate > 60 BUN/Creatinine Ratio 14 Glucose Level 100 70-105 MG/DL Calcium Level 9.0 8.5-10.1 MG/DL Total Bilirubin 0.4 0.1-1.0 MG/DL Aspartate Amino Transf (AST/SGOT) 15 5-34 U/L Alanine Aminotransferase (ALT/SGPT) 26 0-55 U/L Alkaline Phosphatase 85 40-136 U/L Total Protein 7.0 6.4-8.2 G/DL Albumin 4.1 3.2-4.5 G/DL Amylase Level 33 25-125 U/L Lipase 16 8-78 U/L My Orders Orders - PRINCESS SEALS DO Ua Culture If Indicated (04/06/17 14:46) Urine Bedside (04/06/17 14:46) Saline Lock/Iv-Start (04/06/17 14:52) Amylase (04/06/17 14:52) Cbc With Automated Diff (04/06/17 14:52) Comprehensive Metabolic Panel (04/06/17 14:52) Lipase (04/06/17 14:52) Ct Abdomen/Pelvis W (04/06/17 15:18) Acute Abd Series (04/06/17 15:18) Iohexol Injection (Omnipaque 350 Mg/Ml 1 (04/06/17 15:30) Ns (Ivpb) (Sodium Chloride 0.9% Ivpb Bag (04/06/17 15:30) Manual Differential (04/06/17 15:15) Ondansetron Injection (Zofran Injectio (04/06/17 16:00) Medications Given in ED Current Medications Medications Dose Ordered Sig/Nemo Route Start Time Stop Time Status Last Admin Dose Admin Iohexol 100 ml ONCE ONCE IV 04/06/17 15:30 04/06/17 15:31 DC 04/06/17 15:37 100 ML Ondansetron HCl 4 mg ONCE ONCE IVP 04/06/17 16:00 04/06/17 16:01 DC 04/06/17 16:05 4 MG Sodium Chloride 100 ml ONCE ONCE IV 04/06/17 15:30 04/06/17 15:31 DC 04/06/17 15:37 80 ML Vital Signs/I&O Vital Sign - Last 12Hours 04/06/17 14:45 Temp 96.3 Pulse 117 Resp 16 B/P (MAP) 161/90 Pulse Ox 97 Blood Pressure Mean: 113 Point of Care Testing Urine -Bedside: Negative Diagnostic Imaging Comments ACUTE ABDOMEN XRAYS--NO ACUTE PROCESS CT ABDOMEN/PELVIS--DIVERTICULITIS, WITH COLITIS PROXIMAL TO AREA OF DIVERTICULITIS PER DR. BOLANOS VIA PHONE AT 1556 Reviewed: Reviewed by Me Departure Communication Progress Notes 8773--SPOKE WITH DR. BRYAN--ADVISES TO ADMIT TO MEDICINE SERVICE AND HE WILL SEE PT IN CONSULT. ADVISES NPO AND GIVE CIPRO AND FLAGYL 1601--SPOKE WITH DR. ABEBE, ACCEPTS PT FOR ADMIT Impression Impression: Primary Impression: Diverticulitis Disposition: ADMITTED INPATIENT Condition: Stable Decision to Admit Reason: Admit from ER (General) Decision to Admit/Date: April 06, 2017 Time/Decision to Admit Time: 16:00 Departure-Patient Inst. Referrals: CORBY WALTERS DO (PCP) Primary Care Physician NUZHAT FRANKS (Family) Primary Care Physician PRINCESS SEALS DO April 06, 2017 15:01
[2017-04-06 15:06] LABS: WBC,URINE 0-2 /HPF
[2017-04-06 15:22] LABS: BASOPHILS # (AUTO) 0.1 10^3/uL (0.0-0.1); BASOPHILS % (AUTO) 0 % (0-10); EOSINOPHILS # (AUTO) 0.3 10^3/uL (0.0-0.3); EOSINOPHILS % (AUTO) 2 % (0-10); LYMPHOCYTES # (AUTO) 3.1 X 10^3 (1.0-4.0); LYMPHOCYTES % (AUTO) 19 % (12-44); MEAN CORPUSCULAR HEMOGLOBIN 30 PG (25-34); MEAN CORPUSCULAR HGB CONC 33 G/DL (32-36); MEAN CORPUSCULAR VOLUME 91 FL (80-99); MEAN PLATELET VOLUME 10.4 FL (7.4-10.4); MONOCYTES # (AUTO) 1.2 X 10^3 (0.0-1.0); MONOCYTES % (AUTO) 7 % (0-12); NEUTROPHILS # (AUTO) 11.5 X 10^3 (1.8-7.8); NEUTROPHILS % (AUTO) 71 % (42-75); PLATELET COUNT 332 10^3/uL (130-400); RED BLOOD COUNT 5.23 10^6/uL (4.35-5.85); RED CELL DISTRIBUTION WIDTH 13.1 % (10.0-14.5); WHITE BLOOD COUNT 16.2 10^3/uL (4.3-11.0)
[2017-04-06] MEDS ORDERED: NS 100 ML (IVPB) BAG IV ONE (15:30)
[2017-04-06] MEDS ORDERED: IOHEXOL 350 MG/ML 100 ML (OMNIPAQUE 350) VIAL IV ONE (15:30)
[2017-04-06 15:40] LABS: BAND NEUTROPHILS 0 %; BASOPHILS % (MANUAL) 0 %; EOSINOPHILS % (MANUAL) 4 %; LYMPHOCYTES % (MANUAL) 31 %; NEUTROPHILS % (MANUAL) 64 %
[2017-04-06 15:48] LABS: ALANINE AMINOTRANSFERASE 26 U/L (0-55); ALBUMIN 4.1 G/DL (3.2-4.5); AMYLASE 33 U/L (25-125); ANION GAP 7 MMOL/L (5-14); ASPARTATE AMINO TRANSFERASE 15 U/L (5-34); BILIRUBIN,TOTAL 0.4 MG/DL (0.1-1.0); BLOOD UREA NITROGEN 10 MG/DL (7-18); BUN/CREATININE RATIO 14; CARBON DIOXIDE 27 MMOL/L (21-32); CHLORIDE 106 MMOL/L (98-107); CREATININE SERUM 0.73 MG/DL (0.60-1.30); GFR ESTIMATED > 60; GLUCOSE 100 MG/DL (70-105); LIPASE 16 U/L (8-78); SODIUM 140 MMOL/L (135-145)
[2017-04-06] MEDS ORDERED: ONDANSETRON 4 MG/2 ML (SDV) Z0FRAN IVP ONE (16:00)
--- NOTE | 2017-04-06 16:00 | Diagnostic Imaging Report ---
INDICATION: Abdominal pain post cholecystectomy. FINDINGS: A PA chest and supine and upright abdominal images were obtained. There is contrast in the kidneys from prior CT. The bowel gas pattern is normal. There is no retroperitoneal free air. There are no pathologic masses or calcifications seen. IMPRESSION: Negative abdomen series. Dictated by: Dictated on workstation # [id number]
--- NOTE | 2017-04-06 16:07 | Diagnostic Imaging Report ---
PROCEDURE: CT abdomen and pelvis with contrast. TECHNIQUE: Multiple contiguous axial images were obtained through the abdomen and pelvis after administration of intravenous contrast. INDICATION: Left lower quadrant and groin pain. Nausea and vomiting. CONTRAST: 100 mL of Omnipaque 350 was administered intravenously. FINDINGS: The lung bases appear clear. The liver, spleen, and pancreas appear unremarkable. Cholecystectomy clips are seen. There are bilateral adrenal nodules measuring 2.3 cm on the left and 1.9 cm on the right side. The low density of these nodules is in favor of adenomas and they appear similar to 09/02/2016. The kidneys have symmetric enhancement and contrast excretion. There is no hydronephrosis. There is diverticulitis with inflammation around the sigmoid colon. There is, however, no abscess or significant fluid collection seen. The proximal segments of the colon appear contracted with mild wall thickening. This could be related to a nonspecific colitis in the proximal segments. The small bowel loops are normal in caliber. The appendix appears normal. The abdominal aorta is normal in size with no periaortic significantly enlarged lymph node seen. The osseous structures demonstrate mild degenerative changes in the SI joints with sclerotic changes. IMPRESSION: 1. There is sigmoid diverticulitis. No abscess. 2. The rest of the colon proximal to the sigmoid demonstrates a contracted and thickened appearance which might relate to superimposed inflammatory or infectious colitis on top of the sigmoid diverticulitis. Correlate clinically and with followup colonoscopy. 3. The findings were discussed with Dr. Hill at the time of dictation. Dictated by: Dictated on workstation # [id number]
[2017-04-06] MEDS ORDERED: CIPROFLOXACIN IV 400MG/200ML 200 ML IV ONE (16:15)
[2017-04-06] MEDS ORDERED: fentaNYL INJECTION 100 MCG/2 ML AMP IVP STA (16:16)
[2017-04-06 16:50] VITALS: BP 135/71
[2017-04-06] MEDS ORDERED: D5 1/2 NS 1000 ML IV SOLUTION 1,000 ML IV ONE (17:13)
[2017-04-06] MEDS ORDERED: metroNIDAZOLE 500MG/100ML IVPB 100 ML ONE (17:13)
[2017-04-06] MEDS ORDERED: ONDANSETRON 4 MG/2 ML (SDV) Z0FRAN IV PRN (17:30)
[2017-04-06] MEDS ORDERED: CATHETER FLUSH 10 ML SYR IV PRN (17:30)
[2017-04-06] MEDS: fentaNYL INJECTION 100 MCG/2 ML AMP IV PRN ×3 (17:48→22:21)
--- NOTE | 2017-04-06 17:49 | Consultation ---
History of Present Illness History of Present Illness Patient Consulted On(phill/time) 04/06/17 17:43 Date of Admission History of Present Illness Patient came into the ER today with pain to the left upper and lower quadrant. She reports about 3 days of diarrhea. She states she tried to have bowel movement but never felt completely empty. She report trying so many OTC meds but no relief. She recently had a lap edmundo fone about [address] of the abdomen and pelvis peform. It showed diverticulitis of the sigmoid colon. Allergies and Home Medications Allergies Coded Allergies: tramadol HCl (Verified Allergy, Mild, HIVES, 03/17/17) Home Medications Atenolol 50 Mg Tablet, 75 MG PO DAILY, (Reported) LAST FILLED #45 01-26-17 TAKES 1 & 1/2 (50MG) TABLETS Ciprofloxacin HCl 500 Mg Tablet, 500 MG PO BID for 10 Days Prescribed by: PAMDA NICHOLS on 04/07/17 1222 Clonazepam 1 Mg Tablet, 0.5-1 MG PO BID PRN for ANXIETY, (Reported) TAKES 1/2-1 (1MG) TABLET Hydrochlorothiazide 25 Mg Tablet, 25 MG PO DAILY, (Reported) LAST FILLED #30 17 Hydroxyzine HCl 25 Mg Tablet, 25-50 MG PO HS PRN for SLEEP, (Reported) Ibuprofen 800 Mg Tablet, 800 MG PO Q8H PRN for PAIN-MILD, (Reported) Metronidazole 500 Mg Tablet, 500 MG PO TID for 7 Days Prescribed by: PADMA NICHOLS on 04/07/17 1222 Past Jayhuoe-Hymqkw-Luixqf Hx Patient Social History Alcohol Use: Rarely Uses Recreational Drug Use: Yes (THC IN PAST) Smoking Status: Current Everyday Smoker Type Used: Cigarettes Recent Foreign Travel: No Contact w/Someone Who Travel: No Recent Infectious Disease Expo: No Recent Hopitalizations: No Physical Abuse Screen: No Sexual Abuse: No Immunizations Up To Date Tetanus Booster (TDap): More than 5yrs PED Vaccines UTD: Yes Seasonal Allergies Seasonal Allergies: Yes (MILD) Surgeries HX Surgeries: Yes (WART REMOVALS; "CYST" REMOVALS FROM SKIN OF VARIOUS PARTS OF BODY) Surgeries: Gallbladder Respiratory Hx Respiratory Disorders: Yes Respiratory Disorders: Asthma Cardiovascular Hx Cardiac Disorders: Yes (SWELLING AT TIMES) Cardiac Disorders: Chronic Edema/Swelling, Hypertension Neurological Hx Neurological Disorders: Yes Neurological Disorders: Headaches /Migraines Reproductive System : No Hx Reproductive Disorders: Yes Sexually Transmitted Disease: No HIV/AIDS: No Female Reproductive Disorders: Menstrual Problems, Polycystic Ovarian Dis Genitourinary Hx Genitourinary Disorders: No Gastrointestinal Hx Gastrointestinal Disorders: Yes (SANTORO DISEASE-FATTY LIVER) Gastrointestinal Disorders: Colitis, Gastroesophageal Reflux, Diverticulosis Musculoskeletal Hx Musculoskeletal Disorders: Yes (CHRONIC BILATERAL KNEE PAIN, chostrochrondritis) Musculoskeletal Disorders: Chronic Back Pain Endocrine Hx Endocrine Disorders: Yes ("PRE" DIABETIC--DOES NOT CHECK BLOOD SUGAR; OBESITY) Endocrine Disorders: Diabetes, Non-Insulin dep HEENT HX ENT Disorders: Yes (GLASSES) Loss of Vision: Bilateral Hearing Impairment: Denies Cancer Hx Cancer: No Psychosocial Hx Psychiatric Problems: Yes Behavioral Health Disorders: Sleep Difficulties, Depression Integumentary HX Skin/Integumentary Disorder: No Blood Transfusions Hx Blood Disorders: No Adverse Reaction to a Blood Tr: No Family Medical History Significant Family History: No Pertinent Family Hx Family Medial History: Alcoholism 19 FATHER 19 MOTHER Arthritis 19 MOTHER Asthma 19 MOTHER Cancer of mouth 19 FATHER Cataracts 19 MOTHER Dementia 19 MOTHER Diabetes mellitus Drug abuse 19 FATHER 19 MOTHER Fibrocystic disease of breast 19 MOTHER Headache disorder 19 MOTHER G8 SISTER Hypertension 19 MOTHER Respiratory disorder 19 FATHER 19 MOTHER Review of Systems-General Constitutional: fever EENTM: no symptoms reported Respiratory: no symptoms reported Cardiovascular: no symptoms reported Gastrointestinal: LLQ, abdominal pain (LUQ), constipation, diarrhea Genitourinary: no symptoms reported Musculoskeletal: no symptoms reported Psychiatric/Neurological: No Symptoms Reported Physical Exam-General Problems Physical Exam Vital Signs Vital Sign - Last 12Hours 04/06/17 14:45 Temp 96.3 Pulse 117 Resp 16 B/P (MAP) 161/90 Pulse Ox 97 Capillary Refill : Less Than 3 Seconds General Appearance: no apparent distress, obese Neck: non-tender, full range of motion Respiratory: no respiratory distress, no accessory muscle use Cardiovascular: regular rate, rhythm Gastrointestinal: soft, no organomegaly, tenderness (left upper quadrant and left lower quadrant. ) Extremities: no pedal edema, no calf tenderness, normal capillary refill Neurologic/Psychiatric: alert, normal mood/affect Data Review Labs Laboratory Tests Test 04/06/17 14:46 04/06/17 15:15 Range/Units Urine Color YELLOW Urine Clarity SLIGHTLY CLOUDY Urine pH 6 5-9 Urine Specific [place] 1.015 L 1.016-1.022 Urine Protein 1+ H NEGATIVE Urine Glucose (UA) NEGATIVE NEGATIVE Urine Ketones NEGATIVE NEGATIVE Urine Nitrite NEGATIVE NEGATIVE Urine Bilirubin NEGATIVE NEGATIVE Urine Urobilinogen NORMAL NORMAL MG/DL Urine Leukocyte Esterase 1+ H NEGATIVE Urine RBC (Auto) 3+ H NEGATIVE Urine RBC 0-2 /HPF Urine WBC 0-2 /HPF Urine Squamous Epithelial Cells 5-10 /HPF Urine Crystals NONE /LPF Urine Bacteria TRACE /HPF Urine Casts NONE /LPF Urine Mucus NEGATIVE /LPF Urine Culture Indicated NO White Blood Count 16.2 H 4.3-11.0 10^3/uL Red Blood Count 5.23 4.35-5.85 10^6/uL Hemoglobin 15.8 11.5-16.0 G/DL Hematocrit 47 35-52 % Mean Corpuscular Volume 91 80-99 FL Mean Corpuscular Hemoglobin 30 25-34 PG Mean Corpuscular Hemoglobin Concent 33 32-36 G/DL Red Cell Distribution Width 13.1 10.0-14.5 % Platelet Count 332 130-400 10^3/uL Mean Platelet Volume 10.4 7.4-10.4 FL Neutrophils (%) (Auto) 71 42-75 % Lymphocytes (%) (Auto) 19 12-44 % Monocytes (%) (Auto) 7 0-12 % Eosinophils (%) (Auto) 2 0-10 % Basophils (%) (Auto) 0 0-10 % Neutrophils # (Auto) 11.5 H 1.8-7.8 X 10^3 Lymphocytes # (Auto) 3.1 1.0-4.0 X 10^3 Monocytes # (Auto) 1.2 H 0.0-1.0 X 10^3 Eosinophils # (Auto) 0.3 0.0-0.3 10^3/uL Basophils # (Auto) 0.1 0.0-0.1 10^3/uL Neutrophils % (Manual) 64 % Lymphocytes % (Manual) 31 % Monocytes % (Manual) 1 % Eosinophils % (Manual) 4 % Basophils % (Manual) 0 % Band Neutrophils 0 % Blood Morphology Comment NORMAL Sodium Level 140 135-145 MMOL/L Potassium Level 4.0 3.6-5.0 MMOL/L Chloride Level 106 98-107 MMOL/L Carbon Dioxide Level 27 21-32 MMOL/L Anion Gap 7 5-14 MMOL/L Blood Urea Nitrogen 10 7-18 MG/DL Creatinine 0.73 0.60-1.30 MG/DL Estimat Glomerular Filtration Rate > 60 BUN/Creatinine Ratio 14 Glucose Level 100 70-105 MG/DL Calcium Level 9.0 8.5-10.1 MG/DL Total Bilirubin 0.4 0.1-1.0 MG/DL Aspartate Amino Transf (AST/SGOT) 15 5-34 U/L Alanine Aminotransferase (ALT/SGPT) 26 0-55 U/L Alkaline Phosphatase 85 40-136 U/L Total Protein 7.0 6.4-8.2 G/DL Albumin 4.1 3.2-4.5 G/DL Amylase Level 33 25-125 U/L Lipase 16 8-78 U/L Laboratory Tests 04/06/17 14:46: Urine Color YELLOW, Urine Clarity SLIGHTLY CLOUDY, Urine pH 6, Urine Specific [place] 1.015L, Urine Protein 1+H, Urine Glucose (UA) NEGATIVE, Urine Ketones NEGATIVE, Urine Nitrite NEGATIVE, Urine Bilirubin NEGATIVE, Urine Urobilinogen NORMAL, Urine Leukocyte Esterase 1+H, Urine RBC (Auto) 3+H, Urine RBC 0-2, Urine WBC 0-2, Urine Squamous Epithelial Cells 5-10, Urine Crystals NONE, Urine Bacteria TRACE, Urine Casts NONE, Urine Mucus NEGATIVE, Urine Culture Indicated NO 04/06/17 15:15: White Blood Count 16.2H, Red Blood Count 5.23, Hemoglobin 15.8, Hematocrit 47, Mean Corpuscular Volume 91, Mean Corpuscular Hemoglobin 30, Mean Corpuscular Hemoglobin Concent 33, Red Cell Distribution Width 13.1, Platelet Count 332, Mean Platelet Volume 10.4, Neutrophils (%) (Auto) 71, Lymphocytes (%) (Auto) 19 , Monocytes (%) (Auto) 7, Eosinophils (%) (Auto) 2, Basophils (%) (Auto) 0, Neutrophils # (Auto) 11.5H, Lymphocytes # (Auto) 3.1, Monocytes # (Auto) 1.2H, Eosinophils # (Auto) 0.3, Basophils # (Auto) 0.1, Neutrophils % (Manual) 64, Lymphocytes % (Manual) 31, Monocytes % (Manual) 1, Eosinophils % (Manual) 4, Basophils % (Manual) 0, Band Neutrophils 0, Blood Morphology Comment NORMAL, Sodium Level 140, Potassium Level 4.0, Chloride Level 106, Carbon Dioxide Level 27, Anion Gap 7, Blood Urea Nitrogen 10, Creatinine 0.73, Estimat Glomerular Filtration Rate > 60, BUN/Creatinine Ratio 14, Glucose Level 100, Calcium Level 9.0, Total Bilirubin 0.4, Aspartate Amino Transf (AST/SGOT) 15, Alanine Aminotransferase (ALT/SGPT) 26, Alkaline Phosphatase 85, Total Protein 7.0, Albumin 4.1, Amylase Level 33, Lipase 16 Assessment/Plan Assessment/Plan Assessment/Plan sigmoid diverticulitis. No abscess. superimposed inflammatory or infectious colitis Pt will be NPO. Pt to cont. with Cipro and Levaquin IV. Lab work. We will continue to monitor patient and treat conservatively at this time. Roberta- Patient with left upper left lower quadrant abdominal pain. No blood in stools. Not feeling well. Patient had ct scan demonstrating diverticulitis S perforation, colitis above sigmoid colon wBC approximately 16 K general no acute distress heart reg lungs nonlabored abdomen soft nondistended tenderness left lower quadrant no guarding or rebounding obese incisions from lap edmundo healed ext nontender left lower quadrant pain, diverticulitis, leukocytosis patient to be admitted for ABX, iv hydration, bowel rest NPO repeat labs in am Clinical Quality Measures DVT/VTE Risk/Contraindication: Risk Factor Score Per Nursin RFS Level Per Nursing on Admit: 4+=Very High ALICE MCKINNEY APRN April 06, 2017 17:48 MARCELINA BRYAN DO April 07, 2017 13:06
[2017-04-06] MEDS: D5 1/2 NS 1000 ML IV SOLUTION 1,000 ML IV SCH (17:50)
[2017-04-06 20:00] VITALS: BP 143/89
[2017-04-06] MEDS ORDERED: LEVOFLOXACIN 750 MG/150 ML IV 150 ML IV SCH (21:00)
[2017-04-06] MEDS: metroNIDAZOLE 500MG/100ML IVPB 100 ML IV SCH (23:54)
[2017-04-07 00:19] VITALS: BP 128/73
[2017-04-07] MEDS: fentaNYL INJECTION 100 MCG/2 ML AMP IV PRN ×3 (01:04→09:30)
[2017-04-07 04:06] VITALS: BP 123/64
[2017-04-07] MEDS: D5 1/2 NS 1000 ML IV SOLUTION 1,000 ML IV SCH (04:21)
[2017-04-07] MEDS: metroNIDAZOLE 500MG/100ML IVPB 100 ML IV SCH ×2 (05:34→11:03)
[2017-04-07 06:01] LABS: BASOPHILS % (AUTO) 0 % (0-10); EOSINOPHILS # (AUTO) 0.2 10^3/uL (0.0-0.3); EOSINOPHILS % (AUTO) 2 % (0-10); LYMPHOCYTES # (AUTO) 2.3 X 10^3 (1.0-4.0); LYMPHOCYTES % (AUTO) 17 % (12-44); MEAN CORPUSCULAR HEMOGLOBIN 30 PG (25-34); MEAN CORPUSCULAR HGB CONC 33 G/DL (32-36); MEAN CORPUSCULAR VOLUME 93 FL (80-99); MEAN PLATELET VOLUME 10.4 FL (7.4-10.4); MONOCYTES # (AUTO) 1.2 X 10^3 (0.0-1.0); MONOCYTES % (AUTO) 9 % (0-12); NEUTROPHILS # (AUTO) 9.6 X 10^3 (1.8-7.8); NEUTROPHILS % (AUTO) 72 % (42-75); PLATELET COUNT 293 10^3/uL (130-400); RED CELL DISTRIBUTION WIDTH 13.2 % (10.0-14.5); WHITE BLOOD COUNT 13.4 10^3/uL (4.3-11.0)
[2017-04-07 06:29] LABS: ALANINE AMINOTRANSFERASE 19 U/L (0-55); ALBUMIN 3.4 G/DL (3.2-4.5); ANION GAP 8 MMOL/L (5-14); ASPARTATE AMINO TRANSFERASE 9 U/L (5-34); BILIRUBIN,TOTAL 0.6 MG/DL (0.1-1.0); BLOOD UREA NITROGEN 9 MG/DL (7-18); BUN/CREATININE RATIO 13; CARBON DIOXIDE 23 MMOL/L (21-32); CHLORIDE 105 MMOL/L (98-107); CREATININE SERUM 0.67 MG/DL (0.60-1.30); GFR ESTIMATED > 60; GLUCOSE 134 MG/DL (70-105); POTASSIUM 3.7 MMOL/L (3.6-5.0); SODIUM 136 MMOL/L (135-145); TOTAL PROTEIN 5.7 G/DL (6.4-8.2)
[2017-04-07 08:22] VITALS: BP 130/73
[2017-04-07] MEDS ORDERED: CIPROFLOXACIN 400 MG/D5W 200 ML (PRE-MIX) IV SCH (09:00)
[2017-04-07] MEDS ORDERED: HYDR-700 PO (10:45)
[2017-04-07] MEDS ORDERED: IBUP-1780 PO (10:45)
[2017-04-07 12:00] VITALS: BP 126/59
[2017-04-07] MEDS ORDERED: CIPR-225 PO (12:22)
[2017-04-07] MEDS ORDERED: METR500T PO (12:22)
--- NOTE | 2017-04-07 12:40 | Discharge Instructions ---
Discharge Critical access hospital Discharge Medications New, Converted or Re-Newed RX: Transmitted to Pharmacy New Medications: Ciprofloxacin HCl (Cipro) 500 Mg Tablet 500 MG PO BID for 10 Days, TAB Metronidazole (Flagyl) 500 Mg Tablet 500 MG PO TID for 7 Days, TAB Continued Medications: Atenolol (Atenolol) 50 Mg Tablet 75 MG PO DAILY, TAB LAST FILLED #45 3- TAKES 1 & 1/2 (50MG) TABLETS Clonazepam (Clonazepam) 1 Mg Tablet 0.5-1 MG PO BID PRN for ANXIETY, TAB TAKES 1/2-1 (1MG) TABLET Hydrochlorothiazide (Hydrochlorothiazide) 25 Mg Tablet 25 MG PO DAILY, TAB LAST FILLED #30 02-23-17 Hydroxyzine HCl (Hydroxyzine HCl) 25 Mg Tablet 25-50 MG PO HS PRN for SLEEP, TAB Discontinued Medications: Ibuprofen (Ibuprofen) 800 Mg Tablet 800 MG PO Q8H PRN for PAIN-MILD, TAB Patient Instructions Goal/Follow Up Appt: You have a follow up appt on 04/13 @ 10 am with Parth Morfin Return to The Hospital For: Unable to tolerate antibiotics Severe abdominal pain Activity & Diet Discharge Diet: Low Residue Activity as Tolerated: Yes POWER ABEBE MD April 07, 2017 12:40
--- NOTE | 2017-04-07 12:46 | Short Stay Summary ---
HPI History of Present Illness: 36 yo F that started to have abdominal pain on Tuesday that progressively got worse. She was also having diarrhea for the last several days. Denies blood in stool. Mild Nausea no vomiting. Patient had Chrissie [address] Granados. + nausea w/o vomiting. States that she has had diverticulitis 1x before but this pain is much worse then before. Did no require admission. This AM states that she is feeling much better. Tolerated CLD this AM. Source: patient, RN/MD Exam Limitations: no limitations Date seen by provider: April 07, 2017 Time seen by provider: 10:15 Attending Physician Tsering Yeung MD PCP Rosana Hurtado DO Consult Date of Admission April 06, 2017 at 16:00 Home Medications Home Medications Reviewed patient Home Medication Reconciliation Form Allergies Coded Allergies: tramadol HCl (Verified Allergy, Mild, HIVES, 03/17/17) QKC-Yenmmc-Khlzzs Hx Patient Social History Alcohol Use: Rarely Uses Recreational Drug Use: Yes (THC IN PAST) Smoking Status: Current Everyday Smoker Type Used: Cigarettes Recent Foreign Travel: No Contact w/other who traveled: No Recent Hopitalizations: No Recent Infectious Disease Expo: No Physical Abuse Screen: No Sexual Abuse: No Immunizations Up To Date Tetanus Booster (TDap): More than 5yrs Past Medical History - HTN Surg History - Lap Chrissie 02/2017 Family Medical History Significant Family History: No Pertinent Family Hx Family History: Alcoholism 19 FATHER 19 MOTHER Arthritis 19 MOTHER Asthma 19 MOTHER Cancer of mouth 19 FATHER Cataracts 19 MOTHER Dementia 19 MOTHER Diabetes mellitus Drug abuse 19 FATHER 19 MOTHER Fibrocystic disease of breast 19 MOTHER Headache disorder 19 MOTHER G8 SISTER Hypertension 19 MOTHER Respiratory disorder 19 FATHER 19 MOTHER Review of Systems ([facility]) Constitutional: chills, No fever, malaise EENTM: no symptoms reported Respiratory: no symptoms reported, No cough, No dyspnea on exertion, No short of breath Cardiovascular: no symptoms reported, No chest pain, No edema, No palpitations Gastrointestinal: LLQ (Pain), No constipation, diarrhea, No hematemesis, loss of appetite, No melena, nausea, No vomiting Genitourinary: no symptoms reported, No dysuria, No frequency, No hematuria : No Musculoskeletal: no symptoms reported Skin: no symptoms reported, No lesions, No rash Psychiatric/Neurological: Anxiety Reviewed Test Results Reviewed Test Results Lab Laboratory Tests Test 04/07/17 05:48 Range/Units White Blood Count 13.4 H 4.3-11.0 10^3/uL Red Blood Count 4.50 4.35-5.85 10^6/uL Hemoglobin 13.6 11.5-16.0 G/DL Hematocrit 42 35-52 % Mean Corpuscular Volume 93 80-99 FL Mean Corpuscular Hemoglobin 30 25-34 PG Mean Corpuscular Hemoglobin Concent 33 32-36 G/DL Red Cell Distribution Width 13.2 10.0-14.5 % Platelet Count 293 130-400 10^3/uL Mean Platelet Volume 10.4 7.4-10.4 FL Neutrophils (%) (Auto) 72 42-75 % Lymphocytes (%) (Auto) 17 12-44 % Monocytes (%) (Auto) 9 0-12 % Eosinophils (%) (Auto) 2 0-10 % Basophils (%) (Auto) 0 0-10 % Neutrophils # (Auto) 9.6 H 1.8-7.8 X 10^3 Lymphocytes # (Auto) 2.3 1.0-4.0 X 10^3 Monocytes # (Auto) 1.2 H 0.0-1.0 X 10^3 Eosinophils # (Auto) 0.2 0.0-0.3 10^3/uL Basophils # (Auto) 0.0 0.0-0.1 10^3/uL Sodium Level 136 135-145 MMOL/L Potassium Level 3.7 3.6-5.0 MMOL/L Chloride Level 105 98-107 MMOL/L Carbon Dioxide Level 23 21-32 MMOL/L Anion Gap 8 5-14 MMOL/L Blood Urea Nitrogen 9 7-18 MG/DL Creatinine 0.67 0.60-1.30 MG/DL Estimat Glomerular Filtration Rate > 60 BUN/Creatinine Ratio 13 Glucose Level 134 H 70-105 MG/DL Calcium Level 8.0 L 8.5-10.1 MG/DL Total Bilirubin 0.6 0.1-1.0 MG/DL Aspartate Amino Transf (AST/SGOT) 9 5-34 U/L Alanine Aminotransferase (ALT/SGPT) 19 0-55 U/L Alkaline Phosphatase 67 40-136 U/L Total Protein 5.7 L 6.4-8.2 G/DL Albumin 3.4 3.2-4.5 G/DL Radiology Date of Exam: 04/06/17 ACUTE ABD SERIES INDICATION: Abdominal pain post cholecystectomy. FINDINGS: A PA chest and supine and upright abdominal images were obtained. There is contrast in the kidneys from prior CT. The bowel gas pattern is normal. There is no retroperitoneal free air. There are no pathologic masses or calcifications seen. IMPRESSION: Negative abdomen series. Date of Exam: 04/06/17 CT ABDOMEN/PELVIS W PROCEDURE: CT abdomen and pelvis with contrast. TECHNIQUE: Multiple contiguous axial images were obtained through the abdomen and pelvis after administration of intravenous contrast. INDICATION: Left lower quadrant and groin pain. Nausea and vomiting. CONTRAST: 100 mL of Omnipaque 350 was administered intravenously. FINDINGS: The lung bases appear clear. The liver, spleen, and pancreas appear unremarkable. Cholecystectomy clips are seen. There are bilateral adrenal nodules measuring 2.3 cm on the left and 1.9 cm on the right side. The low density of these nodules is in favor of adenomas and they appear similar to 09/02/2016. The kidneys have symmetric enhancement and contrast excretion. There is no hydronephrosis. There is diverticulitis with inflammation around the sigmoid colon. There is, however, no abscess or significant fluid collection seen. The proximal segments of the colon appear contracted with mild wall thickening. This could be related to a nonspecific colitis in the proximal segments. The small bowel loops are normal in caliber. The appendix appears normal. The abdominal aorta is normal in size with no periaortic significantly enlarged lymph node seen. The osseous structures demonstrate mild degenerative changes in the SI joints with sclerotic changes. IMPRESSION: 1. There is sigmoid diverticulitis. No abscess. 2. The rest of the colon proximal to the sigmoid demonstrates a contracted and thickened appearance which might relate to superimposed inflammatory or infectious colitis on top of the sigmoid diverticulitis. Correlate clinically and with followup colonoscopy. 3. The findings were discussed with Dr. Hill at the time of dictation. Physical Exam-([facility]) Physical Exam Vital Signs VS - Last 72 Hours, by Label 04/06/17 04/06/17 04/06/17 04/06/17 14:45 16:40 16:50 20:00 Temp 96.3 97.4 97.8 Pulse 117 78 102 109 Resp 16 16 20 20 B/P (MAP) 161/90 135/71 143/89 Pulse Ox 97 98 94 98 O2 Delivery Room Air Room Air 5/11/17 5/11/17 5/11/17 00:19 04:06 08:22 Temp 98.6 98.9 97.8 Pulse 106 90 86 Resp 18 18 18 B/P (MAP) 128/73 123/64 130/73 Pulse Ox 94 95 92 O2 Delivery Room Air Room Air Room Air Capillary Refill : Less Than 3 Seconds General Appearance: WD/WN, no apparent distress HEENT: PERRL/EOMI Neck: non-tender, full range of motion, supple Respiratory: chest non-tender, lungs clear, normal breath sounds, no respiratory distress, no accessory muscle use Cardiovascular: normal peripheral pulses, regular rate, rhythm, no edema, no gallop, no JVD, no murmur Gastrointestinal: normal bowel sounds, soft, no organomegaly, tenderness (LLQ, no rebound or guarding) Extremities: normal range of motion, non-tender, normal inspection, no pedal edema, no calf tenderness, normal capillary refill 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, no motor/sensory deficits, alert, normal mood/affect, oriented x 3 Skin: normal color, warm/dry Lymphatic: no adenopathy Short Stay Diagnosis Discharge Diagnosis-Short Stay Admission Diagnosis Diverticulitis Recent Lap Chrissie Final Discharge Diagnosis See Above Conclusion Plan 36 yo admitted for abdominal pain found to have diverticulitis s/p Chrissie 2 weeks ago Plan Acute Sigmoid Diverticulitis - IV flagyl and Cipro, transitioned to PO in AM - Tolerating CLD, encouraged patient to continue soft bland diet - Encouraged PO hydration - Will have colonoscopy with Dr Granados in 6-8 weeks post treatment HTN - Continue Atenolol FEN: CLD advance as tolerated Dispo: D/c on PO antibiotics today, close f.u in clinic Clinical Quality Measures DVT/VTE Risk/Contraindication: Risk Factor Score Per Nursin RFS Level Per Nursing on Admit: 4+=Very High Copy Copies To 1: Parth PATEL HOLLY R MD April 07, 2017 12:46
--- NOTE | 2017-04-07 12:58 | Progress Note ---
Subjective Subjective/Events-last exam Patient resting in bed. Easily aroused. Reports she is ready to go home. She states she still has some pain to her left upper and lower quadrant but it is better than yesterday. She also states some pain over the suprapubic area. Objective Exam Vital Signs Date Time Temp Pulse Resp B/P (MAP) Pulse Ox O2 Delivery O2 Flow Rate FiO2 04/07/17 08:22 97.8 86 18 130/73 92 Room Air 04/07/17 04:06 98.9 90 18 123/64 95 Room Air 04/07/17 00:19 98.6 106 18 128/73 94 Room Air 04/06/17 20:00 97.8 109 20 143/89 98 Room Air 04/06/17 16:50 97.4 102 20 135/71 94 Room Air 04/06/17 16:40 78 16 98 04/06/17 14:45 96.3 117 16 161/90 97 I & O 04/07/17 07:00 Intake Total 1650 ml Output Total 850 ml Balance 800 ml Capillary Refill : Less Than 3 Seconds General Appearance: No Apparent Distress, Obese Neck: Full Range of Motion, Normal Inspection Respiratory: Chest Non Tender, No Accessory Muscle Use, No Respiratory Distress Cardiovascular: Regular Rate, Rhythm Gastrointestinal: soft, no organomegaly, tenderness (left upper quadrant and left lower quadrant. Also suprapubic area.) Extremity: Non Tender, No Calf Tenderness, No Pedal Edema Neurologic/Psychiatric: Alert, Oriented x3, No Motor/Sensory Deficits Skin: Normal Color, Warm/Dry Lymphatic: No Adenopathy Results Lab Laboratory Tests Test 04/06/17 14:46 04/06/17 15:15 04/07/17 05:48 Range/Units Urine Color YELLOW Urine Clarity SLIGHTLY CLOUDY Urine pH 6 5-9 Urine Specific [place] 1.015 L 1.016-1.022 Urine Protein 1+ H NEGATIVE Urine Glucose (UA) NEGATIVE NEGATIVE Urine Ketones NEGATIVE NEGATIVE Urine Nitrite NEGATIVE NEGATIVE Urine Bilirubin NEGATIVE NEGATIVE Urine Urobilinogen NORMAL NORMAL MG/DL Urine Leukocyte Esterase 1+ H NEGATIVE Urine RBC (Auto) 3+ H NEGATIVE Urine RBC 0-2 /HPF Urine WBC 0-2 /HPF Urine Squamous Epithelial Cells 5-10 /HPF Urine Crystals NONE /LPF Urine Bacteria TRACE /HPF Urine Casts NONE /LPF Urine Mucus NEGATIVE /LPF Urine Culture Indicated NO White Blood Count 16.2 H 13.4 H 4.3-11.0 10^3/uL Red Blood Count 5.23 4.50 4.35-5.85 10^6/uL Hemoglobin 15.8 13.6 11.5-16.0 G/DL Hematocrit 47 42 35-52 % Mean Corpuscular Volume 91 93 80-99 FL Mean Corpuscular Hemoglobin 30 30 25-34 PG Mean Corpuscular Hemoglobin Concent 33 33 32-36 G/DL Red Cell Distribution Width 13.1 13.2 10.0-14.5 % Platelet Count 332 293 130-400 10^3/uL Mean Platelet Volume 10.4 10.4 7.4-10.4 FL Neutrophils (%) (Auto) 71 72 42-75 % Lymphocytes (%) (Auto) 19 17 12-44 % Monocytes (%) (Auto) 7 9 0-12 % Eosinophils (%) (Auto) 2 2 0-10 % Basophils (%) (Auto) 0 0 0-10 % Neutrophils # (Auto) 11.5 H 9.6 H 1.8-7.8 X 10^3 Lymphocytes # (Auto) 3.1 2.3 1.0-4.0 X 10^3 Monocytes # (Auto) 1.2 H 1.2 H 0.0-1.0 X 10^3 Eosinophils # (Auto) 0.3 0.2 0.0-0.3 10^3/uL Basophils # (Auto) 0.1 0.0 0.0-0.1 10^3/uL Neutrophils % (Manual) 64 % Lymphocytes % (Manual) 31 % Monocytes % (Manual) 1 % Eosinophils % (Manual) 4 % Basophils % (Manual) 0 % Band Neutrophils 0 % Blood Morphology Comment NORMAL Sodium Level 140 136 135-145 MMOL/L Potassium Level 4.0 3.7 3.6-5.0 MMOL/L Chloride Level 106 105 98-107 MMOL/L Carbon Dioxide Level 27 23 21-32 MMOL/L Anion Gap 7 8 5-14 MMOL/L Blood Urea Nitrogen 10 9 7-18 MG/DL Creatinine 0.73 0.67 0.60-1.30 MG/DL Estimat Glomerular Filtration Rate > 60 > 60 BUN/Creatinine Ratio 14 13 Glucose Level 100 134 H 70-105 MG/DL Calcium Level 9.0 8.0 L 8.5-10.1 MG/DL Total Bilirubin 0.4 0.6 0.1-1.0 MG/DL Aspartate Amino Transf (AST/SGOT) 15 9 5-34 U/L Alanine Aminotransferase (ALT/SGPT) 26 19 0-55 U/L Alkaline Phosphatase 85 67 40-136 U/L Total Protein 7.0 5.7 L 6.4-8.2 G/DL Albumin 4.1 3.4 3.2-4.5 G/DL Amylase Level 33 25-125 U/L Lipase 16 8-78 U/L Laboratory Tests 04/06/17 14:46: Urine Color YELLOW, Urine Clarity SLIGHTLY CLOUDY, Urine pH 6, Urine Specific [place] 1.015L, Urine Protein 1+H, Urine Glucose (UA) NEGATIVE, Urine Ketones NEGATIVE, Urine Nitrite NEGATIVE, Urine Bilirubin NEGATIVE, Urine Urobilinogen NORMAL, Urine Leukocyte Esterase 1+H, Urine RBC (Auto) 3+H, Urine RBC 0-2, Urine WBC 0-2, Urine Squamous Epithelial Cells 5-10, Urine Crystals NONE, Urine Bacteria TRACE, Urine Casts NONE, Urine Mucus NEGATIVE, Urine Culture Indicated NO 04/06/17 15:15: White Blood Count 16.2H, Red Blood Count 5.23, Hemoglobin 15.8, Hematocrit 47, Mean Corpuscular Volume 91, Mean Corpuscular Hemoglobin 30, Mean Corpuscular Hemoglobin Concent 33, Red Cell Distribution Width 13.1, Platelet Count 332, Mean Platelet Volume 10.4, Neutrophils (%) (Auto) 71, Lymphocytes (%) (Auto) 19 , Monocytes (%) (Auto) 7, Eosinophils (%) (Auto) 2, Basophils (%) (Auto) 0, Neutrophils # (Auto) 11.5H, Lymphocytes # (Auto) 3.1, Monocytes # (Auto) 1.2H, Eosinophils # (Auto) 0.3, Basophils # (Auto) 0.1, Neutrophils % (Manual) 64, Lymphocytes % (Manual) 31, Monocytes % (Manual) 1, Eosinophils % (Manual) 4, Basophils % (Manual) 0, Band Neutrophils 0, Blood Morphology Comment NORMAL, Sodium Level 140, Potassium Level 4.0, Chloride Level 106, Carbon Dioxide Level 27, Anion Gap 7, Blood Urea Nitrogen 10, Creatinine 0.73, Estimat Glomerular Filtration Rate > 60, BUN/Creatinine Ratio 14, Glucose Level 100, Calcium Level 9.0, Total Bilirubin 0.4, Aspartate Amino Transf (AST/SGOT) 15, Alanine Aminotransferase (ALT/SGPT) 26, Alkaline Phosphatase 85, Total Protein 7.0, Albumin 4.1, Amylase Level 33, Lipase 16 04/07/17 05:48: White Blood Count 13.4H, Red Blood Count 4.50, Hemoglobin 13.6, Hematocrit 42, Mean Corpuscular Volume 93, Mean Corpuscular Hemoglobin 30, Mean Corpuscular Hemoglobin Concent 33, Red Cell Distribution Width 13.2, Platelet Count 293, Mean Platelet Volume 10.4, Neutrophils (%) (Auto) 72, Lymphocytes (%) (Auto) 17 , Monocytes (%) (Auto) 9, Eosinophils (%) (Auto) 2, Basophils (%) (Auto) 0, Neutrophils # (Auto) 9.6H, Lymphocytes # (Auto) 2.3, Monocytes # (Auto) 1.2H, Eosinophils # (Auto) 0.2, Basophils # (Auto) 0.0, Sodium Level 136, Potassium Level 3.7, Chloride Level 105, Carbon Dioxide Level 23, Anion Gap 8, Blood Urea Nitrogen 9, Creatinine 0.67, Estimat Glomerular Filtration Rate > 60, BUN/ Creatinine Ratio 13, Glucose Level 134H, Calcium Level 8.0L, Total Bilirubin 0.6 , Aspartate Amino Transf (AST/SGOT) 9, Alanine Aminotransferase (ALT/SGPT) 19, Alkaline Phosphatase 67, Total Protein 5.7L, Albumin 3.4 Assessment/Plan Assessment/Plan Assessment/Plan sigmoid diverticulitis. No abscess. superimposed inflammatory or infectious colitis Pt will go home today. On Cipro and Flagy. Will follow up with Dr. Granados in clinic in 2 weeks. Clear liquids for 2 - 3 days and then slowly advance as tolerated. Roberta- patient feeling better today. WBC slightly better. patient NPO Wanting to go home. Denies n/v fever sweats chills shortness of breath or chest pain. general no acute distress heart reg lungs nonlabored abdomen soft, still with tenderness left lower quadrant ext nontender diverticulitis, llq abdominal pain start clears patient wanting to go home. Dc home on abx and stay on liquid diet 2-3 days will need outpatient colonoscopy in about 6 weeks Clinical Quality Measures DVT/VTE Risk/Contraindication: Risk Factor Score Per Nursin RFS Level Per Nursing on Admit: 4+=Very High ALICE MCKINNEY APRN April 07, 2017 12:58 MARCELINA GRANADOS DO April 07, 2017 13:09
== END 2017-04-07 12:29 | disposition home or self-care (01) ==
LOC: EDUNIT# 14:29 → ER 14:32 → 4TH 16:00
PROVIDERS: ADMIT Family Medicine; ATTEND Family Medicine
DX: K57.32 Diverticulitis of large intestine without perforation or abscess without bleeding (principal); I10 Essential (primary) hypertension; K21.9 Gastro-esophageal reflux disease without esophagitis; E11.9 Type 2 diabetes mellitus without complications; E66.9 Obesity, unspecified; F17.210 Nicotine dependence, cigarettes, uncomplicated; Z79.899 Other long term (current) drug therapy; Z90.49 Acquired absence of other specified parts of digestive tract; Z98.890 Other specified postprocedural states
CPT/HCPCS: 36415; 74022; 74177; 80053; 81000; 82150; 83690; 84703; 85007; 85025; 85027; 96374; 96375; G0378

== ENCOUNTER 2017-05-13 05:40 | Outpatient (CLI) | payer OTHER ==
[~2017-05-13] VITALS: Ht 162.6 cm; Wt 137.9 kg
[~2017-05-13 05:40] MED LIST changes: +CIPR-225 PO; +HYDR-700 PO; +IBUP-1780 PO
== END 2017-05-13 12:27 ==
LOC: PREOP 05:40
PROVIDERS: ATTEND Surgery
DX: Z01.818 Encounter for other preprocedural examination (principal); K21.9 Gastro-esophageal reflux disease without esophagitis; K57.32 Diverticulitis of large intestine without perforation or abscess without bleeding

== ENCOUNTER 2017-05-17 07:33 | Day surgery (SDC) | payer OTHER ==
[~2017-05-17] VITALS: Ht 162.6 cm; Wt 137.9 kg
[2017-05-17] MEDS ORDERED: NS IV 1000 ML 1,000 ML IV STA (07:43)
[2017-05-17] MEDS ORDERED: HURRICAINE EXT TUBE (BENZOCAINE) XX PRN (07:45)
[2017-05-17 07:53] VITALS: BP 140/107
--- NOTE | 2017-05-17 08:01 | Progress Note-Pre Operative ---
Pre-Operative Progress Note H&P Reviewed The H&P was reviewed, patient examined and no changes noted. Date Seen by Provider: May 17, 2017 Time Seen by Provider: 08: Date H&P Reviewed: May 17, 2017 Time H&P Reviewed: 08: Pre-Operative Diagnosis: gerd, history of diverticulitis MARCELINA BRYAN DO May 17, 2017 8:01 am
[2017-05-17] MEDS ORDERED: proPOfol 200 MG/20 ML (DIPRIVAN) VIAL IV ONE ×2 (08:28→08:53)
[2017-05-17] MEDS ORDERED: MIDAZOLAM 2 MG/2 ML (VERSED) VIAL ONE (08:29)
[2017-05-17] MEDS ORDERED: HURRICAINE EXT TUBE (BENZOCAINE) ONE (08:29)
[2017-05-17] MEDS ORDERED: PANT40TA2 PO ×2 (09:15)
[2017-05-17] MEDS ORDERED: SUCR1TAB36 PO ×2 (09:15)
--- NOTE | 2017-05-17 09:19 | Discharge Inst-Simple/Standard ---
Discharge Inst-Standard Discharge Medications New, Converted or Re-Newed RX: Transmitted to Pharmacy Patient Instructions/Follow Up Plan of Care/Instructions/FU: Take protonix 40 mg twice a day for 2 weeks and then once a day after that Take carafate 1gm 4 times a day Follow up with Dr. Granados in clinic in 3 weeks Activity as Tolerated: Yes Discharge Diet: No Restrictions ALICE MCKINNEY APRN May 17, 2017 09:19
[2017-05-17 09:25] VITALS: BP 153/103
--- NOTE | 2017-05-17 09:25 | Progress Note-Post Operative ---
Post-Operative Progess Note Surgeon (s)/Analytical Tech (s) Surgeon MARCELINA BRYAN DO Analytical Tech: na Pre-Operative Diagnosis gerd, history of diverticulitis Post-Operative Diagnosis duodenitis with small ulcers, gastritis, diverticulosis Procedure & Operative Findings Date of Procedure 05/17/17 Procedure Performed/Findings egd c biopsies, colonoscopy Anesthesia Type per trucker Estimated Blood Loss Estimated blood loss (mL): none Specimens/Packing Specimens Removed duodenum, antrum, body MARCELINA BRYAN DO May 17, 2017 9:25 am
[2017-05-17 09:55] VITALS: BP 158/105
[2017-05-17 10:05] VITALS: BP 158/105
--- NOTE | 2017-05-17 23:07 | OPERATIVE REPORT ---
DATE OF SERVICE: 05/17/2017 PREOPERATIVE DIAGNOSES: Gastroesophageal reflux disease, history of diverticulitis. POSTOPERATIVE DIAGNOSES: Duodenitis with small ulcers, gastritis, diverticulosis. PROCEDURE: Esophagogastroduodenoscopy with biopsies and colonoscopy. SURGEON: Marcelina Granados DO ANESTHESIA: Per GROUNDING ENGINEER. ESTIMATED BLOOD LOSS: None. COMPLICATIONS: None. INDICATIONS: The patient is a 36-year-old female who has been having reflux with history of diverticulitis. She understands risks and benefits of the procedure and wished to proceed with procedure. Consent was signed in the chart. PROCEDURE: The patient was taken to the endoscopy suite, placed in left lateral recumbent position. Timeout was performed. Scope was inserted in mouth, down the esophagus, stomach and into the duodenum without difficulty. When in the second portion of the duodenum it had normal appearance. The scope was slowly retracted back into the first portion of the duodenum, which had erythematous changes and small ulcerations. Biopsy was obtained. Scope was slowly retracted back into the stomach, which was further insufflated noting erythematous changes in the antrum and body. Biopsies were obtained. The scope was retroflexed noting no hiatal hernia. No polyps, masses or ulcerations. Scope was returned to its normal position, slowly withdrawn back into the distal esophagus, which had normal appearance. There are no polyps, mass or ulcerations. No erythematous changes. Scope was slowly retracted until completely removed. Digital rectal exam was performed and there were no palpable polyps, masses or ulcerations. Scope was inserted in the rectum and advanced all the way to the cecum with minimal difficulty. Prep was adequate. Scope was then slowly retracted back. There were no polyps, masses or ulcerations within the cecum, ascending, transverse, descending colon. In the sigmoid colon, a small amount of diverticulosis was present. There are no polyps, masses or ulcerations. Scope was continued to be slowly retracted back to the rectum it was also retroflexed noting no further pathology. Scope was returned to its normal position, slowly withdrawn until completely removed, noting no other pathology. RECOMMENDATIONS: The patient will be started on Protonix 40 mg twice a day for two weeks and then once daily. The patient will also be placed on Carafate 1 gram four times a day. The patient will need the high fiber diet. The patient will follow up in 2 to 3 weeks in the office. She will need a repeat colonoscopy for guidelines for colon cancer screening starting at age 50 unless family history of colon cancer which would then be 10 years prior to the age of diagnosis. If she has any problems prior to that, she should be reevaluated at that time. Job ID: [id number] DocumentID: [id number] Dictated Date: 05/17/2017 09:29:00 Lecturer In Computer Science Date: 05/17/2017 21:45:11 Dictated By: MARCELINA GRANADOS DO
--- OUTSIDE RECORDS SUMMARY | 2017-05-19 14:22 | XMS REPORT | Continuity of Care Document ---
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 SMEAR WET MOUNT SALINE/INK 03/06/2013 15807 GC/CHLAM PROBE (STATE) 03/06/2013 26691 PAP SMEAR 2012 Q0091 PAP SMEAR OBTAIN SMEAR 03/06/2013 35087 ROUTINE VENIPUNCTURE 03/07/2013 64837 CMP 03/07/2013 90144 LIPID PANEL 03/07 75998 A1C (RML) 2012 62189 TSH 03/07/2013 02533 CBC 03/07/2013 95851 IMMUNOTHERAPY, ONE INJECTION 10/03/2014 J1885 TORADOL INJ 10/03 J2550 PHENERGAN INJECTION UP TO 50 MG 10/03/2014 77763 ROUTINE VENIPUNCTURE 11/26/2014 37900 BMP 11/26/2014 48905 MAGNESIUM 2013 [id number] GFR CALC (RESULT ONLY) 11/26/2014 99343 NAIL REMOVAL SINGLE (COMPLETE OR PARTIAL) 03/04/2015 Results Test Result Range Complete urinalysis with reflex to culture - 09/02/16 21:04 Urine color determination YELLOW NRG Urine clarity determination CLEAR NRG Urine pH measurement by test strip 7 5- 9 Specific gravity of urine by test strip 1.010 1.016-1.022 Urine protein assay by test strip, semi-quantitative NEGATIVE NEGATIVE Urine glucose detection by automated test strip NEGATIVE NEGATIVE Erythrocytes detection in urine sediment by light microscopy 2+ NEGATIVE Urine ketones detection by automated test strip NEGATIVE NEGATIVE Urine nitrite detection by test strip NEGATIVE NEGATIVE Urine total bilirubin detection by test strip NEGATIVE NEGATIVE Urine urobilinogen measurement by automated test strip (mass/volume) 1 mg/dL NORMAL Urine leukocyte esterase detection by dipstick 3+ NEGATIVE Automated urine sediment erythrocyte count by microscopy (number/high power field) [HPF] NRG Automated urine sediment leukocyte count by microscopy (number/high power field ) [HPF] NRG Bacteria detection in urine sediment by light microscopy FEW NRG Squamous epithelial cells detection in urine sediment by light microscopy 5-10 NRG Crystals detection in urine sediment by light microscopy NONE NRG Casts detection in urine sediment by light microscopy NONE NRG Mucus detection in urine sediment by light microscopy NEGATIVE NRG Complete urinalysis with reflex to culture YES NRG Urine beta human chorionic gonadotropin (hCG) measurement - 09/02/16 21:04 Urine beta human chorionic gonadotropin (hCG) measurement NEGATIVE NEGATIVE Bacterial urine culture - 09/02/16 21:04 URINE CULTURE RESULTS MORE THAN 3 ISOLATES NRG Comprehensive metabolic panel - 09/02/16 21:40 Serum or plasma sodium measurement (moles/volume) 139 mmol/ L 135-145 Serum or plasma potassium measurement (moles/volume) 3.4 mmol/L 3.6-5.0 Serum or plasma chloride measurement (moles/volume) 105 mmol /L 98-107 Carbon dioxide 21 mmol/L 21-32 Serum or plasma anion gap determination (moles/volume) 13 mmol/L 5-14 Serum or plasma urea nitrogen measurement (mass/volume) 13 mg/dL 7-18 Serum or plasma creatinine measurement (mass/volume) 0.73 mg /dL 0.60-1.30 Serum or plasma urea nitrogen/creatinine mass ratio 18 NRG Serum or plasma creatinine measurement with calculation of estimated glomerular filtration rate > NRG Serum or plasma glucose measurement (mass/volume) 97 mg/dL 70-105 Serum or plasma calcium measurement (mass/volume) 8.7 mg/dL 8.5-10.1 Serum or plasma total bilirubin measurement (mass/volume) 0.4 mg/dL 0.1-1.0 Serum or plasma alkaline phosphatase measurement (enzymatic activity/volume) 73 U/L 40-136 Serum or plasma aspartate aminotransferase measurement (enzymatic activity/ volume) 15 U/L 5-34 Serum or plasma alanine aminotransferase measurement (enzymatic activity/volume ) 20 U/L 0-55 Serum or plasma protein measurement (mass/volume) 6.5 g/dL 6.4-8.2 Serum or plasma albumin measurement (mass/volume) 3.9 g/dL 3.2-4.5 Serum or plasma amylase measurement (enzymatic activity/volume) - 09/02/16 21: 40 Serum or plasma amylase measurement (enzymatic activity/volume) 31 U/L 25-125 Lipase - 09/02/16 21:40 Lipase 26 U/L 8-78 Complete blood count (CBC) with automated white blood cell (WBC) differential - 09/02/16 21:40 Blood leukocytes automated count (number/volume) 13.7 10*3/ uL 4.3-11.0 Blood erythrocytes automated count (number/volume) 4.91 10*6 /uL 4.35-5.85 Venous blood hemoglobin measurement (mass/volume) 15.1 g/dL 11.5-16.0 Blood hematocrit (volume fraction) 44 % 35-52 Automated erythrocyte mean corpuscular volume 90 [foz_us] 80-99 Automated erythrocyte mean corpuscular hemoglobin (mass per erythrocyte) 31 pg 25-34 Automated erythrocyte mean corpuscular hemoglobin concentration measurement ( mass/volume) 34 g/dL 32-36 Automated erythrocyte distribution width ratio 13.0 % 10.0-14.5 Automated blood platelet count (count/volume) 324 10*3/uL 130-400 Automated blood platelet mean volume measurement 10.6 [foz_ us] 7.4-10.4 Automated blood neutrophils/100 leukocytes 60 % 42-75 Automated blood lymphocytes/100 leukocytes 27 % 12-44 Blood monocytes/100 leukocytes 10 % 0-12 Automated blood eosinophils/100 leukocytes 3 % 0-10 Automated blood basophils/100 leukocytes 1 % 0-10 Blood neutrophils automated count (number/volume) 8.2 10*3 1.8-7.8 Blood lymphocytes automated count (number/volume) 3.7 10*3 1.0-4.0 Blood monocytes automated count (number/volume) 1.4 10*3 0.0-1.0 Automated eosinophil count 0.4 10*3/uL 0.0-0.3 Automated blood basophil count (count/volume) 0.1 10*3/uL 0.0-0.1 Complete urinalysis with reflex to culture - 09/05/16 16:10 Urine color determination YELLOW NRG Urine clarity determination CLEAR NRG Urine pH measurement by test strip 6 5- 9 Specific gravity of urine by test strip 1.015 1.016-1.022 Urine protein assay by test strip, semi-quantitative NEGATIVE NEGATIVE Urine glucose detection by automated test strip NEGATIVE NEGATIVE Erythrocytes detection in urine sediment by light microscopy 2+ NEGATIVE Urine ketones detection by automated test strip NEGATIVE NEGATIVE Urine nitrite detection by test strip NEGATIVE NEGATIVE Urine total bilirubin detection by test strip NEGATIVE NEGATIVE Urine urobilinogen measurement by automated test strip (mass/volume) 1 mg/dL NORMAL Urine leukocyte esterase detection by dipstick 3+ NEGATIVE Automated urine sediment erythrocyte count by microscopy (number/high power field) NONE NRG Automated urine sediment leukocyte count by microscopy (number/high power field ) [HPF] NRG Bacteria detection in urine sediment by light microscopy TRACE NRG Squamous epithelial cells detection in urine sediment by light microscopy 2-5 NRG Crystals detection in urine sediment by light microscopy NONE NRG Casts detection in urine sediment by light microscopy NONE NRG Mucus detection in urine sediment by light microscopy NEGATIVE NRG Complete urinalysis with reflex to culture YES NRG Bacterial urine culture - 09/05/16 16:10 URINE CULTURE RESULTS <10,000/ML NRG Complete blood count (CBC) with automated white blood cell (WBC) differential - 09/05/16 16:30 Blood leukocytes automated count (number/volume) 11.3 10*3/ uL 4.3-11.0 Blood erythrocytes automated count (number/volume) 5.07 10*6 /uL 4.35-5.85 Venous blood hemoglobin measurement (mass/volume) 15.7 g/dL 11.5-16.0 Blood hematocrit (volume fraction) 46 % 35-52 Automated erythrocyte mean corpuscular volume 90 [foz_us] 80-99 Automated erythrocyte mean corpuscular hemoglobin (mass per erythrocyte) 31 pg 25-34 Automated erythrocyte mean corpuscular hemoglobin concentration measurement ( mass/volume) 34 g/dL 32-36 Automated erythrocyte distribution width ratio 13.0 % 10.0-14.5 Automated blood platelet count (count/volume) 326 10*3/uL 130-400 Automated blood platelet mean volume measurement 10.5 [foz_ us] 7.4-10.4 Automated blood neutrophils/100 leukocytes 67 % 42-75 Automated blood lymphocytes/100 leukocytes 23 % 12-44 Blood monocytes/100 leukocytes 6 % 0-12 Automated blood eosinophils/100 leukocytes 3 % 0-10 Automated blood basophils/100 leukocytes 0 % 0-10 Blood neutrophils automated count (number/volume) 7.6 10*3 1.8-7.8 Blood lymphocytes automated count (number/volume) 2.7 10*3 1.0-4.0 Blood monocytes automated count (number/volume) 0.7 10*3 0.0-1.0 Automated eosinophil count 0.4 10*3/uL 0.0-0.3 Automated blood basophil count (count/volume) 0.0 10*3/uL 0.0-0.1 Comprehensive metabolic panel - 09/05/16 16:30 Serum or plasma sodium measurement (moles/volume) 140 mmol/ L 135-145 Serum or plasma potassium measurement (moles/volume) 3.6 mmol/L 3.6-5.0 Serum or plasma chloride measurement (moles/volume) 107 mmol /L 98-107 Carbon dioxide 20 mmol/L 21-32 Serum or plasma anion gap determination (moles/volume) 13 mmol/L 5-14 Serum or plasma urea nitrogen measurement (mass/volume) 10 mg/dL 7-18 Serum or plasma creatinine measurement (mass/volume) 0.67 mg /dL 0.60-1.30 Serum or plasma urea nitrogen/creatinine mass ratio 15 NRG Serum or plasma creatinine measurement with calculation of estimated glomerular filtration rate > NRG Serum or plasma glucose measurement (mass/volume) 123 mg/dL 70-105 Serum or plasma calcium measurement (mass/volume) 8.5 mg/dL 8.5-10.1 Serum or plasma total bilirubin measurement (mass/volume) 0.2 mg/dL 0.1-1.0 Serum or plasma alkaline phosphatase measurement (enzymatic activity/volume) 78 U/L 40-136 Serum or plasma aspartate aminotransferase measurement (enzymatic activity/ volume) 18 U/L 5-34 Serum or plasma alanine aminotransferase measurement (enzymatic activity/volume ) 21 U/L 0-55 Serum or plasma protein measurement (mass/volume) 6.5 g/dL 6.4-8.2 Serum or plasma albumin measurement (mass/volume) 3.9 g/dL 3.2-4.5 Lipase - 09/05/16 16:30 Lipase 33 U/L 8-78 Complete blood count (CBC) with automated white blood cell (WBC) differential - 09/06/16 04:25 Blood leukocytes automated count (number/volume) 9.6 10*3/ uL 4.3-11.0 Blood erythrocytes automated count (number/volume) 4.25 10*6 /uL 4.35-5.85 Venous blood hemoglobin measurement (mass/volume) 13.0 g/dL 11.5-16.0 Blood hematocrit (volume fraction) 39 % 35-52 Automated erythrocyte mean corpuscular volume 93 [foz_us] 80-99 Automated erythrocyte mean corpuscular hemoglobin (mass per erythrocyte) 31 pg 25-34 Automated erythrocyte mean corpuscular hemoglobin concentration measurement ( mass/volume) 33 g/dL 32-36 Automated erythrocyte distribution width ratio 12.9 % 10.0-14.5 Automated blood platelet count (count/volume) 304 10*3/uL 130-400 Automated blood platelet mean volume measurement 11.0 [foz_ us] 7.4-10.4 Automated blood neutrophils/100 leukocytes 53 % 42-75 Automated blood lymphocytes/100 leukocytes 33 % 12-44 Blood monocytes/100 leukocytes 9 % 0-12 Automated blood eosinophils/100 leukocytes 5 % 0-10 Automated blood basophils/100 leukocytes 1 % 0-10 Blood neutrophils automated count (number/volume) 5.1 10*3 1.8-7.8 Blood lymphocytes automated count (number/volume) 3.2 10*3 1.0-4.0 Blood monocytes automated count (number/volume) 0.9 10*3 0.0-1.0 Automated eosinophil count 0.5 10*3/uL 0.0-0.3 Automated blood basophil count (count/volume) 0.1 10*3/uL 0.0-0.1 Comprehensive metabolic panel - 09/06/16 04:25 Serum or plasma sodium measurement (moles/volume) 140 mmol/ L 135-145 Serum or plasma potassium measurement (moles/volume) 3.6 mmol/L 3.6-5.0 Serum or plasma chloride measurement (moles/volume) 111 mmol /L 98-107 Carbon dioxide 20 mmol/L 21-32 Serum or plasma anion gap determination (moles/volume) 9 mmol/L 5-14 Serum or plasma urea nitrogen measurement (mass/volume) 8 mg /dL 7-18 Serum or plasma creatinine measurement (mass/volume) 0.61 mg /dL 0.60-1.30 Serum or plasma urea nitrogen/creatinine mass ratio 13 NRG Serum or plasma creatinine measurement with calculation of estimated glomerular filtration rate > NRG Serum or plasma glucose measurement (mass/volume) 85 mg/dL 70-105 Serum or plasma calcium measurement (mass/volume) 7.4 mg/dL 8.5-10.1 Serum or plasma total bilirubin measurement (mass/volume) 0.2 mg/dL 0.1-1.0 Serum or plasma alkaline phosphatase measurement (enzymatic activity/volume) 57 U/L 40-136 Serum or plasma aspartate aminotransferase measurement (enzymatic activity/ volume) 14 U/L 5-34 Serum or plasma alanine aminotransferase measurement (enzymatic activity/volume ) 17 U/L 0-55 Serum or plasma protein measurement (mass/volume) 5.0 g/dL 6.4-8.2 Serum or plasma albumin measurement (mass/volume) 3.1 g/dL 3.2-4.5 Capillary blood glucose measurement by glucometer (mass/volume) - 09/06/16 11: 40 Capillary blood glucose measurement by glucometer (mass/volume) 101 mg/dL 70-110 Complete blood count (CBC) with automated white blood cell (WBC) differential - 10/26/16 19:35 Blood leukocytes automated count (number/volume) 10.3 10*3/ uL 4.3-11.0 Blood erythrocytes automated count (number/volume) 4.64 10*6 /uL 4.35-5.85 Venous blood hemoglobin measurement (mass/volume) 14.4 g/dL 11.5-16.0 Blood hematocrit (volume fraction) 42 % 35-52 Automated erythrocyte mean corpuscular volume 89 [foz_us] 80-99 Automated erythrocyte mean corpuscular hemoglobin (mass per erythrocyte) 31 pg 25-34 Automated erythrocyte mean corpuscular hemoglobin concentration measurement ( mass/volume) 35 g/dL 32-36 Automated erythrocyte distribution width ratio 12.7 % 10.0-14.5 Automated blood platelet count (count/volume) 300 10*3/uL 130-400 Automated blood platelet mean volume measurement 10.6 [foz_ us] 7.4-10.4 Automated blood neutrophils/100 leukocytes 61 % 42-75 Automated blood lymphocytes/100 leukocytes 27 % 12-44 Blood monocytes/100 leukocytes 8 % 0-12 Automated blood eosinophils/100 leukocytes 4 % 0-10 Automated blood basophils/100 leukocytes 0 % 0-10 Blood neutrophils automated count (number/volume) 6.3 10*3 1.8-7.8 Blood lymphocytes automated count (number/volume) 2.8 10*3 1.0-4.0 Blood monocytes automated count (number/volume) 0.8 10*3 0.0-1.0 Automated eosinophil count 0.4 10*3/uL 0.0-0.3 Automated blood basophil count (count/volume) 0.0 10*3/uL 0.0-0.1 Serum or plasma choriogonadotropin ( test) detection - 10/26/16 19:35 Serum or plasma choriogonadotropin ( test) detection NEGATIVE NEGATIVE PT panel in platelet poor plasma by coagulation assay - 10/26/16 19:35 Prothrombin time (PT) in platelet poor plasma by coagulation assay 13.2 s 12.2-14.7 INR in platelet poor plasma or blood by coagulation assay 1.0 0.8-1.4 Activated partial thromboplastin time (aPTT) in platelet poor plasma bycoagulation assay - 10/26/16 19:35 Activated partial thromboplastin time (aPTT) in platelet poor plasma bycoagulation assay 28 s 24-35 Comprehensive metabolic panel - 10/26/16 19:35 Serum or plasma sodium measurement (moles/volume) 139 mmol/ L 135-145 Serum or plasma potassium measurement (moles/volume) 3.4 mmol/L 3.6-5.0 Serum or plasma chloride measurement (moles/volume) 109 mmol /L 98-107 Carbon dioxide 23 mmol/L 21-32 Serum or plasma anion gap determination (moles/volume) 7 mmol/L 5-14 Serum or plasma urea nitrogen measurement (mass/volume) 12 mg/dL 7-18 Serum or plasma creatinine measurement (mass/volume) 0.65 mg /dL 0.60-1.30 Serum or plasma urea nitrogen/creatinine mass ratio 18 NRG Serum or plasma creatinine measurement with calculation of estimated glomerular filtration rate > NRG Serum or plasma glucose measurement (mass/volume) 133 mg/dL 70-105 Serum or plasma calcium measurement (mass/volume) 8.3 mg/dL 8.5-10.1 Serum or plasma total bilirubin measurement (mass/volume) 0.2 mg/dL 0.1-1.0 Serum or plasma alkaline phosphatase measurement (enzymatic activity/volume) 71 U/L 40-136 Serum or plasma aspartate aminotransferase measurement (enzymatic activity/ volume) 17 U/L 5-34 Serum or plasma alanine aminotransferase measurement (enzymatic activity/volume ) 20 U/L 0-55 Serum or plasma protein measurement (mass/volume) 5.9 g/dL 6.4-8.2 Serum or plasma albumin measurement (mass/volume) 3.7 g/dL 3.2-4.5 Magnesium - 10/26/16 19:35 Magnesium 2.0 mg/dL 1.8-2.4 Serum or plasma creatine kinase measurement (enzymatic activity/volume) - 10/26 19:35 Serum or plasma creatine kinase measurement (enzymatic activity/volume) 130 U/L 29-168 Serum or plasma creatine kinase MB measurement (enzymatic activity/volume) - 19:35 Serum or plasma creatine kinase MB measurement (enzymatic activity/volume) 1.7 ng/mL <6.6 Serum or plasma troponin i.cardiac measurement (mass/volume) - 10/26/16 19:35 Serum or plasma troponin i.cardiac measurement (mass/volume) < ng/mL <0.30 Serum or plasma lithium measurement (moles/volume) - 10/26/16 19:35 BNP level 53.9 pg/mL <100.0 Serum or plasma amylase measurement (enzymatic activity/volume) - 10/26/16 19: 35 Serum or plasma amylase measurement (enzymatic activity/volume) 34 U/L 25-125 Lipase - 10/26/16 19:35 Lipase 29 U/L 8-78 Serum or plasma thyrotropin measurement by detection limit <=0.05 miu/l (units/ volume) - 10/26/16 19:35 Serum or plasma thyrotropin measurement by detection limit <=0.05 miu/l (units/ volume) 0.69 u[iU]/mL 0.35-4.94 Complete blood count (CBC) with automated white blood cell (WBC) differential - 10/27/16 02:25 Blood leukocytes automated count (number/volume) 9.7 10*3/ uL 4.3-11.0 Blood erythrocytes automated count (number/volume) 4.49 10*6 /uL 4.35-5.85 Venous blood hemoglobin measurement (mass/volume) 13.7 g/dL 11.5-16.0 Blood hematocrit (volume fraction) 41 % 35-52 Automated erythrocyte mean corpuscular volume 90 [foz_us] 80-99 Automated erythrocyte mean corpuscular hemoglobin (mass per erythrocyte) 31 pg 25-34 Automated erythrocyte mean corpuscular hemoglobin concentration measurement ( mass/volume) 34 g/dL 32-36 Automated erythrocyte distribution width ratio 12.7 % 10.0-14.5 Automated blood platelet count (count/volume) 274 10*3/uL 130-400 Automated blood platelet mean volume measurement 10.1 [foz_ us] 7.4-10.4 Automated blood neutrophils/100 leukocytes 48 % 42-75 Automated blood lymphocytes/100 leukocytes 39 % 12-44 Blood monocytes/100 leukocytes 8 % 0-12 Automated blood eosinophils/100 leukocytes 5 % 0-10 Automated blood basophils/100 leukocytes 1 % 0-10 Blood neutrophils automated count (number/volume) 4.7 10*3 1.8-7.8 Blood lymphocytes automated count (number/volume) 3.8 10*3 1.0-4.0 Blood monocytes automated count (number/volume) 0.8 10*3 0.0-1.0 Automated eosinophil count 0.4 10*3/uL 0.0-0.3 Automated blood basophil count (count/volume) 0.1 10*3/uL 0.0-0.1 Serum or plasma creatine kinase measurement (enzymatic activity/volume) - 10/27 02:25 Serum or plasma creatine kinase measurement (enzymatic activity/volume) 105 U/L 29-168 Serum or plasma troponin i.cardiac measurement (mass/volume) - 10/27/16 02:25 Serum or plasma troponin i.cardiac measurement (mass/volume) < ng/mL <0.30 Myoglobin, serum - 10/27/16 02:25 Myoglobin, serum 31.8 ng/mL 10.0-92.0 Comprehensive metabolic panel - 10/27/16 02:25 Serum or plasma sodium measurement (moles/volume) 139 mmol/ L 135-145 Serum or plasma potassium measurement (moles/volume) 3.7 mmol/L 3.6-5.0 Serum or plasma chloride measurement (moles/volume) 108 mmol /L 98-107 Carbon dioxide 24 mmol/L 21-32 Serum or plasma anion gap determination (moles/volume) 7 mmol/L 5-14 Serum or plasma urea nitrogen measurement (mass/volume) 12 mg/dL 7-18 Serum or plasma creatinine measurement (mass/volume) 0.65 mg /dL 0.60-1.30 Serum or plasma urea nitrogen/creatinine mass ratio 18 NRG Serum or plasma creatinine measurement with calculation of estimated glomerular filtration rate > NRG Serum or plasma glucose measurement (mass/volume) 94 mg/dL 70-105 Serum or plasma calcium measurement (mass/volume) 8.0 mg/dL 8.5-10.1 Serum or plasma total bilirubin measurement (mass/volume) 0.3 mg/dL 0.1-1.0 Serum or plasma alkaline phosphatase measurement (enzymatic activity/volume) 65 U/L 40-136 Serum or plasma aspartate aminotransferase measurement (enzymatic activity/ volume) 15 U/L 5-34 Serum or plasma alanine aminotransferase measurement (enzymatic activity/volume ) 18 U/L 0-55 Serum or plasma protein measurement (mass/volume) 5.3 g/dL 6.4-8.2 Serum or plasma albumin measurement (mass/volume) 3.4 g/dL 3.2-4.5 Lipid 1996 panel - 10/27/16 02:25 Serum or plasma triglyceride measurement (mass/volume) 80 mg /dL <150 Serum or plasma cholesterol measurement (mass/volume) 136 mg /dL < 200 Serum or plasma cholesterol in HDL measurement (mass/volume) 32 mg/dL 40-60 Cholesterol in LDL [mass/volume] in serum or plasma by direct assay 97 mg/dL 1-129 Serum or plasma cholesterol in VLDL measurement (mass/volume) 16 mg/dL 5-40 Serum or plasma creatine kinase measurement (enzymatic activity/volume) - 10/27 08:49 Serum or plasma creatine kinase measurement (enzymatic activity/volume) 106 U/L 29-168 Serum or plasma troponin i.cardiac measurement (mass/volume) - 10/27/16 08:49 Serum or plasma troponin i.cardiac measurement (mass/volume) < ng/mL <0.30 Myoglobin, serum - 10/27/16 08:49 Myoglobin, serum 38.4 ng/mL 10.0-92.0 Complete blood count (CBC) with automated white blood cell (WBC) differential - 12/26/16 01:40 Blood leukocytes automated count (number/volume) 10.9 10*3/ uL 4.3-11.0 Blood erythrocytes automated count (number/volume) 4.71 10*6 /uL 4.35-5.85 Venous blood hemoglobin measurement (mass/volume) 14.3 g/dL 11.5-16.0 Blood hematocrit (volume fraction) 43 % 35-52 Automated erythrocyte mean corpuscular volume 90 [foz_us] 80-99 Automated erythrocyte mean corpuscular hemoglobin (mass per erythrocyte) 30 pg 25-34 Automated erythrocyte mean corpuscular hemoglobin concentration measurement ( mass/volume) 34 g/dL 32-36 Automated erythrocyte distribution width ratio 13.3 % 10.0-14.5 Automated blood platelet count (count/volume) 310 10*3/uL 130-400 Automated blood platelet mean volume measurement 10.1 [foz_ us] 7.4-10.4 Automated blood neutrophils/100 leukocytes 54 % 42-75 Automated blood lymphocytes/100 leukocytes 32 % 12-44 Blood monocytes/100 leukocytes 10 % 0-12 Automated blood eosinophils/100 leukocytes 4 % 0-10 Automated blood basophils/100 leukocytes 0 % 0-10 Blood neutrophils automated count (number/volume) 5.8 10*3 1.8-7.8 Blood lymphocytes automated count (number/volume) 3.5 10*3 1.0-4.0 Blood monocytes automated count (number/volume) 1.1 10*3 0.0-1.0 Automated eosinophil count 0.5 10*3/uL 0.0-0.3 Automated blood basophil count (count/volume) 0.0 10*3/uL 0.0-0.1 Fibrin D-dimer FEU measurement in platelet poor plasma (mass/volume) - 01:40 Fibrin D-dimer FEU measurement in platelet poor plasma (mass/volume) 0.48 ug/mL 0.00-0.49 Comprehensive metabolic panel - 12/26/16 01:40 Serum or plasma sodium measurement (moles/volume) 138 mmol/ L 135-145 Serum or plasma potassium measurement (moles/volume) 3.8 mmol/L 3.6-5.0 Serum or plasma chloride measurement (moles/volume) 107 mmol /L 98-107 Carbon dioxide 22 mmol/L 21-32 Serum or plasma anion gap determination (moles/volume) 9 mmol/L 5-14 Serum or plasma urea nitrogen measurement (mass/volume) 15 mg/dL 7-18 Serum or plasma creatinine measurement (mass/volume) 0.70 mg /dL 0.60-1.30 Serum or plasma urea nitrogen/creatinine mass ratio 21 NRG Serum or plasma creatinine measurement with calculation of estimated glomerular filtration rate > NRG Serum or plasma glucose measurement (mass/volume) 109 mg/dL 70-105 Serum or plasma calcium measurement (mass/volume) 8.4 mg/dL 8.5-10.1 Serum or plasma total bilirubin measurement (mass/volume) 0.2 mg/dL 0.1-1.0 Serum or plasma alkaline phosphatase measurement (enzymatic activity/volume) 83 U/L 40-136 Serum or plasma aspartate aminotransferase measurement (enzymatic activity/ volume) 17 U/L 5-34 Serum or plasma alanine aminotransferase measurement (enzymatic activity/volume ) 23 U/L 0-55 Serum or plasma protein measurement (mass/volume) 6.2 g/dL 6.4-8.2 Serum or plasma albumin measurement (mass/volume) 3.7 g/dL 3.2-4.5 Serum or plasma C reactive protein measurement (mass/volume) - 12/26/16 01:40 Serum or plasma C reactive protein measurement (mass/volume) 1.36 mg/dL 0.00-0.50 Serum or plasma lithium measurement (moles/volume) - 12/26/16 01:40 BNP level 13.4 pg/mL <100.0 Complete blood count (CBC) with automated white blood cell (WBC) differential - 03/17/17 10:05 Blood leukocytes automated count (number/volume) 10.4 10*3/ uL 4.3-11.0 Blood erythrocytes automated count (number/volume) 5.05 10*6 /uL 4.35-5.85 Venous blood hemoglobin measurement (mass/volume) 15.3 g/dL 11.5-16.0 Blood hematocrit (volume fraction) 46 % 35-52 Automated erythrocyte mean corpuscular volume 91 [foz_us] 80-99 Automated erythrocyte mean corpuscular hemoglobin (mass per erythrocyte) 30 pg 25-34 Automated erythrocyte mean corpuscular hemoglobin concentration measurement ( mass/volume) 33 g/dL 32-36 Automated erythrocyte distribution width ratio 13.3 % 10.0-14.5 Automated blood platelet count (count/volume) 294 10*3/uL 130-400 Automated blood platelet mean volume measurement 10.5 [foz_ us] 7.4-10.4 Automated blood neutrophils/100 leukocytes 67 % 42-75 Automated blood lymphocytes/100 leukocytes 22 % 12-44 Blood monocytes/100 leukocytes 8 % 0-12 Automated blood eosinophils/100 leukocytes 3 % 0-10 Automated blood basophils/100 leukocytes 1 % 0-10 Blood neutrophils automated count (number/volume) 6.9 10*3 1.8-7.8 Blood lymphocytes automated count (number/volume) 2.3 10*3 1.0-4.0 Blood monocytes automated count (number/volume) 0.8 10*3 0.0-1.0 Automated eosinophil count 0.3 10*3/uL 0.0-0.3 Automated blood basophil count (count/volume) 0.1 10*3/uL 0.0-0.1 Methicillin resistant Staphylococcus aureus (MRSA) screening culture - 10:05 Methicillin resistant Staphylococcus aureus (MRSA) screening culture NEG NRG Urine beta human chorionic gonadotropin (hCG) measurement - 03/24/17 08:00 Urine beta human chorionic gonadotropin (hCG) measurement NEGATIVE NEGATIVE Complete urinalysis with reflex to culture - 04/06/17 14:46 Urine color determination YELLOW NRG Urine clarity determination SLIGHTLY CLOUDY NRG Urine pH measurement by test strip 6 5- 9 Specific gravity of urine by test strip 1.015 1.016-1.022 Urine protein assay by test strip, semi-quantitative 1+ NEGATIVE Urine glucose detection by automated test strip NEGATIVE NEGATIVE Erythrocytes detection in urine sediment by light microscopy 3+ NEGATIVE Urine ketones detection by automated test strip NEGATIVE NEGATIVE Urine nitrite detection by test strip NEGATIVE NEGATIVE Urine total bilirubin detection by test strip NEGATIVE NEGATIVE Urine urobilinogen measurement by automated test strip (mass/volume) NORMAL NORMAL Urine leukocyte esterase detection by dipstick 1+ NEGATIVE Automated urine sediment erythrocyte count by microscopy (number/high power field) [HPF] NRG Automated urine sediment leukocyte count by microscopy (number/high power field ) [HPF] NRG Bacteria detection in urine sediment by light microscopy TRACE NRG Squamous epithelial cells detection in urine sediment by light microscopy 5-10 NRG Crystals detection in urine sediment by light microscopy NONE NRG Casts detection in urine sediment by light microscopy NONE NRG Mucus detection in urine sediment by light microscopy NEGATIVE NRG Complete urinalysis with reflex to culture NO NRG Complete blood count (CBC) with automated white blood cell (WBC) differential - 04/06/17 15:15 Blood leukocytes automated count (number/volume) 16.2 10*3/ uL 4.3-11.0 Blood erythrocytes automated count (number/volume) 5.23 10*6 /uL 4.35-5.85 Venous blood hemoglobin measurement (mass/volume) 15.8 g/dL 11.5-16.0 Blood hematocrit (volume fraction) 47 % 35-52 Automated erythrocyte mean corpuscular volume 91 [[facility]_us] 80-99 Automated erythrocyte mean corpuscular hemoglobin (mass per erythrocyte) 30 pg 25-34 Automated erythrocyte mean corpuscular hemoglobin concentration measurement ( mass/volume) 33 g/dL 32-36 Automated erythrocyte distribution width ratio 13.1 % 10.0-14.5 Automated blood platelet count (count/volume) 332 10*3/uL 130-400 Automated blood platelet mean volume measurement 10.4 [foz_ us] 7.4-10.4 Automated blood neutrophils/100 leukocytes 71 % 42-75 Automated blood lymphocytes/100 leukocytes 19 % 12-44 Blood monocytes/100 leukocytes 7 % 0-12 Automated blood eosinophils/100 leukocytes 2 % 0-10 Automated blood basophils/100 leukocytes 0 % 0-10 Blood neutrophils automated count (number/volume) 11.5 10*3 1.8-7.8 Blood lymphocytes automated count (number/volume) 3.1 10*3 1.0-4.0 Blood monocytes automated count (number/volume) 1.2 10*3 0.0-1.0 Automated eosinophil count 0.3 10*3/uL 0.0-0.3 Automated blood basophil count (count/volume) 0.1 10*3/uL 0.0-0.1 Blood manual differential performed detection - 04/06/17 15:15 Blood monocytes/100 leukocytes 1 % NRG Manual blood segmented neutrophils/100 leukocytes 64 % NRG Blood band neutrophils/100 leukocytes 0 % NRG Manual blood lymphocytes/100 leukocytes 31 % NRG Manual eosinophils/100 leukocytes in nose 4 % NRG Manual blood basophils/100 leukocytes 0 % NRG Blood erythrocyte morphology finding identification NORMAL [facility] Comprehensive metabolic panel - 04/06/17 15:15 Serum or plasma sodium measurement (moles/volume) 140 mmol/ L 135-145 Serum or plasma potassium measurement (moles/volume) 4.0 mmol/L 3.6-5.0 Serum or plasma chloride measurement (moles/volume) 106 mmol /L 98-107 Carbon dioxide 27 mmol/L 21-32 Serum or plasma anion gap determination (moles/volume) 7 mmol/L 5-14 Serum or plasma urea nitrogen measurement (mass/volume) 10 mg/dL 7-18 Serum or plasma creatinine measurement (mass/volume) 0.73 mg /dL 0.60-1.30 Serum or plasma urea nitrogen/creatinine mass ratio 14 NRG Serum or plasma creatinine measurement with calculation of estimated glomerular filtration rate > NRG Serum or plasma glucose measurement (mass/volume) 100 mg/dL 70-105 Serum or plasma calcium measurement (mass/volume) 9.0 mg/dL 8.5-10.1 Serum or plasma total bilirubin measurement (mass/volume) 0.4 mg/dL 0.1-1.0 Serum or plasma alkaline phosphatase measurement (enzymatic activity/volume) 85 U/L 40-136 Serum or plasma aspartate aminotransferase measurement (enzymatic activity/ volume) 15 U/L 5-34 Serum or plasma alanine aminotransferase measurement (enzymatic activity/volume ) 26 U/L 0-55 Serum or plasma protein measurement (mass/volume) 7.0 g/dL 6.4-8.2 Serum or plasma albumin measurement (mass/volume) 4.1 g/dL 3.2-4.5 Serum or plasma amylase measurement (enzymatic activity/volume) - 04/06/17 15: 15 Serum or plasma amylase measurement (enzymatic activity/volume) 33 U/L 25-125 Lipase - 04/06/17 15:15 Lipase 16 U/L 8-78 Complete blood count (CBC) with automated white blood cell (WBC) differential - 04/07/17 05:48 Blood leukocytes automated count (number/volume) 13.4 10*3/ uL 4.3-11.0 Blood erythrocytes automated count (number/volume) 4.50 10*6 /uL 4.35-5.85 Venous blood hemoglobin measurement (mass/volume) 13.6 g/dL 11.5-16.0 Blood hematocrit (volume fraction) 42 % 35-52 Automated erythrocyte mean corpuscular volume 93 [foz_us] 80-99 Automated erythrocyte mean corpuscular hemoglobin (mass per erythrocyte) 30 pg 25-34 Automated erythrocyte mean corpuscular hemoglobin concentration measurement ( mass/volume) 33 g/dL 32-36 Automated erythrocyte distribution width ratio 13.2 % 10.0-14.5 Automated blood platelet count (count/volume) 293 10*3/uL 130-400 Automated blood platelet mean volume measurement 10.4 [foz_ us] 7.4-10.4 Automated blood neutrophils/100 leukocytes 72 % 42-75 Automated blood lymphocytes/100 leukocytes 17 % 12-44 Blood monocytes/100 leukocytes 9 % 0-12 Automated blood eosinophils/100 leukocytes 2 % 0-10 Automated blood basophils/100 leukocytes 0 % 0-10 Blood neutrophils automated count (number/volume) 9.6 10*3 1.8-7.8 Blood lymphocytes automated count (number/volume) 2.3 10*3 1.0-4.0 Blood monocytes automated count (number/volume) 1.2 10*3 0.0-1.0 Automated eosinophil count 0.2 10*3/uL 0.0-0.3 Automated blood basophil count (count/volume) 0.0 10*3/uL 0.0-0.1 Comprehensive metabolic panel - 04/07/17 05:48 Serum or plasma sodium measurement (moles/volume) 136 mmol/ L 135-145 Serum or plasma potassium measurement (moles/volume) 3.7 mmol/L 3.6-5.0 Serum or plasma chloride measurement (moles/volume) 105 mmol /L 98-107 Carbon dioxide 23 mmol/L 21-32 Serum or plasma anion gap determination (moles/volume) 8 mmol/L 5-14 Serum or plasma urea nitrogen measurement (mass/volume) 9 mg /dL 7-18 Serum or plasma creatinine measurement (mass/volume) 0.67 mg /dL 0.60-1.30 Serum or plasma urea nitrogen/creatinine mass ratio 13 NRG Serum or plasma creatinine measurement with calculation of estimated glomerular filtration rate > NRG Serum or plasma glucose measurement (mass/volume) 134 mg/dL 70-105 Serum or plasma calcium measurement (mass/volume) 8.0 mg/dL 8.5-10.1 Serum or plasma total bilirubin measurement (mass/volume) 0.6 mg/dL 0.1-1.0 Serum or plasma alkaline phosphatase measurement (enzymatic activity/volume) 67 U/L 40-136 Serum or plasma aspartate aminotransferase measurement (enzymatic activity/ volume) 9 U/L 5-34 Serum or plasma alanine aminotransferase measurement (enzymatic activity/volume ) 19 U/L 0-55 Serum or plasma protein measurement (mass/volume) 5.7 g/dL 6.4-8.2 Serum or plasma albumin measurement (mass/volume) 3.4 g/dL 3.2-4.5 Urine beta human chorionic gonadotropin (hCG) measurement - 05/17/17 07:45 Urine beta human chorionic gonadotropin (hCG) measurement NEGATIVE NEGATIVE Encounters ACCT No. Visit Date/Time Discharge Status Pt. Type Provider Facility Loc./Unit Complaint [id number] 03/04/2015 13:00:00 03/04/2015 23: 59:59 CLS Outpatient TYLER GAN MD [id number] 12/03/2014 08:41:00 12/03/2014 23: 59:59 CLS Outpatient CORBY WALTERS DO [id number] 10/03/2014 14:53:00 10/03/2014 23: 59:59 CLS Outpatient CORBY WALTERS DO [id number] 08/05/2014 00:00:00 08/05/2014 23: 59:59 CLS Outpatient KATELYN AYALA DDS [id number] 06/25/2014 16:28:00 06/25/2014 23: 59:59 CLS Outpatient CORBY WALTERS DO [id number] 01/24/2014 15:30:00 01/24/2014 23: 59:59 CLS Outpatient NUZHAT FRANKS APRN [id number] 03/07/2013 08:40:00 03/07/2013 23: 59:59 CLS Outpatient FAUZIA VALLADARES MD [id number] 03/06/2013 13:23:00 03/06/2013 23: 59:59 CLS Outpatient [id number] 02/23/2013 08:44:00 02/23/2013 23: 59:59 CLS Outpatient [id number] 12/25/2012 14:09:00 12/25/2012 23: 59:59 CLS Outpatient NUZHAT FRANKS APRN [id number] 03/19/2013 14:36:00 Document Registration
== END 2017-05-17 10:05 | disposition home or self-care (01) ==
LOC: ENDO 07:33
PROVIDERS: ATTEND Surgery
DX: K57.30 Diverticulosis of large intestine without perforation or abscess without bleeding (principal); K21.9 Gastro-esophageal reflux disease without esophagitis; K26.9 Duodenal ulcer, unspecified as acute or chronic, without hemorrhage or perforation; K29.80 Duodenitis without bleeding; K29.70 Gastritis, unspecified, without bleeding; F17.210 Nicotine dependence, cigarettes, uncomplicated; I10 Essential (primary) hypertension; J45.909 Unspecified asthma, uncomplicated; R73.03 Prediabetes; E66.01 Morbid (severe) obesity due to excess calories; Z68.43 Body mass index [BMI] 50.0-59.9, adult
CPT/HCPCS: 84703

== ENCOUNTER 2017-07-18 16:27 | Outpatient (CLI) | payer OTHER ==
[~2017-07-18 16:27] MED LIST changes: +PANT40TA2 PO; +SUCR1TAB36 PO
== END 2017-07-18 16:40 | disposition home or self-care (01) ==
LOC: SLEEP 16:27
PROVIDERS: ATTEND Nurse Practitioner Family
DX: G47.10 Hypersomnia, unspecified (principal); G47.50 Parasomnia, unspecified; R53.83 Other fatigue

== ENCOUNTER → 2017-07-27 | Outpatient (CLI) | payer OTHER ==
[~2017-07-27] MED LIST changes: +AZIT250T12 PO; -AZIT250T5 PO; +CETI10TA17 PO; +FLUT16SP22 NSEACH; +MONT10TA24 PO; +RT-ALBUTEROL SULF 2.5 MG/3 ML PRE-MIX VIAL IH ONE; +SUCR1TAB PO
== END ==
LOC: RT 16:23
PROVIDERS: ATTEND Nurse Practitioner Family
DX: J45.909 Unspecified asthma, uncomplicated (principal); J42 Unspecified chronic bronchitis; R53.83 Other fatigue; Z72.0 Tobacco use
CPT/HCPCS: 94060; 94640; 94726; 94729

== ENCOUNTER 2017-09-12 12:19 | Inpatient (IN) | payer OTHER ==
[~2017-09-12] VITALS: Ht 162.6 cm; Wt 137.9 kg
[~2017-09-12 12:19] MED LIST changes: -AZIT250T12 PO; +AZIT250T5 PO; -CETI10TA17 PO; -FLUT16SP22 NSEACH; -MONT10TA24 PO; -RT-ALBUTEROL SULF 2.5 MG/3 ML PRE-MIX VIAL IH ONE; -SUCR1TAB PO
--- OUTSIDE RECORDS SUMMARY | 2017-09-12 12:28 | XMS REPORT ---
Author Author NUZHAT FRANKS [facility] Address [address] [place] [address] Care Team Providers Care Historiography Professor Name Role Phone NUZHAT FRANKS Unavailable PROBLEMS Type Condition ICD9-CM Code [id number] Code Onset Dates Condition Status SNOMED Code Problem Essential (primary) hypertension I10 Active 31608996 Problem Elevated LDL cholesterol level E78.0 Active 571959707 Problem Anxiety F41.9 Active 25695451 Problem CAP (community acquired pneumonia) J18.9 Active 785537520 Problem Diverticulitis of large intestine, unspecified bleeding status, unspecified complication status K57.32 Active 7023305 Problem RUQ abdominal pain R10.11 Active 403861960 Problem Insomnia, unspecified type G47.00 Active 746100666 Problem Diverticulitis of large intestine without perforation or abscess without bleeding K57.32 Active 7016147 Problem Biliary dyskinesia K82.8 Active 484239291 Problem Migraine with aura and without status migrainosus, not intractable G43.109 Active 7388771 ALLERGIES Substance Reaction Event Type Date Status Ultram Unknown Drug Allergy Oct, Active Lisinopril cough Drug Allergy Oct, Active SOCIAL HISTORY No smoking Hx information available PLAN OF CARE Activity Details Follow Up 4 Weeks Reason:anxiety VITAL SIGNS Height 66 in 2016-11-09 Weight 292.2 lbs 2016-11-09 Temperature 96.8 degrees Fahrenheit 2016-11-09 Heart Rate 92 bpm 2016-11-09 Respiratory Rate 18 2016-11-09 BMI 47.16 kg/m2 2016-11-09 Blood pressure systolic 122 mmHg 2016-11-09 Blood pressure diastolic 72 mmHg 2016-11-09 MEDICATIONS Medication Instructions Dosage Frequency Start Date End Date Duration Status MetFORMIN HCl ER 500 MG Orally Once a day 1 tablet 24h 10 Apr, 2016 Active Venlafaxine HCl 50 MG Orally Twice a day 1 tablet with food 12h 10 Dec, 2015 Active Albuterol Sulfate 90 mcg/actuation Inhalation every 8 hrs 2 puffs by Inhalation route every 4-6 hours as needed PRN cough or wheezing 8h 29 May, 2014 Active Clonazepam 1 MG Orally Twice a day .5-1 tablet 12h Sep, Active Ambien 5 mg Orally Once a day 1 tablet at bedtime 24h 18 Feb, 2016 Active RESULTS No Results PROCEDURES Procedure Date Ordered Related Diagnosis Body Site Office Visit, Est Pt., Level 3 Nov 09, 2016 IMMUNIZATIONS No Known Immunizations
--- OUTSIDE RECORDS SUMMARY | 2017-09-12 12:28 | XMS REPORT ---
Author Author ALCON MARTINO Organization [facility] Address [address] [place] [address] Care Team Providers Care Monitoring Tech Name Role Phone ALCON MARTINO Unavailable PROBLEMS Type Condition ICD9-CM Code [id number] Code Onset Dates Condition Status SNOMED Code Problem Essential (primary) hypertension I10 Active 63152205 Problem Elevated LDL cholesterol level E78.0 Active 766355047 Problem Anxiety F41.9 Active 94147944 Problem CAP (community acquired pneumonia) J18.9 Active 882632848 Problem Diverticulitis of large intestine, unspecified bleeding status, unspecified complication status K57.32 Active 6773304 Problem RUQ abdominal pain R10.11 Active 041038641 Problem Insomnia, unspecified type G47.00 Active 992252112 Problem Diverticulitis of large intestine without perforation or abscess without bleeding K57.32 Active 7903745 Problem Biliary dyskinesia K82.8 Active 225818672 Problem Migraine with aura and without status migrainosus, not intractable G43.109 Active 8179493 ALLERGIES Unknown Allergies SOCIAL HISTORY No smoking Hx information available PLAN OF CARE VITAL SIGNS MEDICATIONS Medication Instructions Dosage Frequency Start Date End Date Duration Status Chlorthalidone 50 mg Orally Once a day 1 tablet in the morning 24h Nov, Active MetFORMIN HCl ER 500 MG Orally Once a day 1 tablet 24h 10 Apr, 2016 Active Venlafaxine HCl 37.5 MG Orally Twice a day 1 tablet with food 12h Dec, Active Ambien 5 mg Orally Once a day 1 tablet at bedtime 24h Feb, Active Clonazepam 1 MG Orally Twice a day .5-1 tablet 12h Sep, Active RESULTS No Results PROCEDURES No Known procedures IMMUNIZATIONS No Known Immunizations
--- OUTSIDE RECORDS SUMMARY | 2017-09-12 12:28 | XMS REPORT ---
Author Author NUZHAT FRANKS [facility] Address [address] [place] [address] Care Team Providers Care Concrete Mixer Name Role Phone NUZHAT FRANKS Unavailable PROBLEMS Type Condition ICD9-CM Code [id number] Code Onset Dates Condition Status SNOMED Code Problem Essential (primary) hypertension I10 Active 54297284 Problem Elevated LDL cholesterol level E78.0 Active 329869470 Problem Anxiety F41.9 Active 09415690 Problem CAP (community acquired pneumonia) J18.9 Active 152615399 Problem Diverticulitis of large intestine, unspecified bleeding status, unspecified complication status K57.32 Active 1250462 Problem RUQ abdominal pain R10.11 Active 206233918 Problem Insomnia, unspecified type G47.00 Active 340645295 Problem Diverticulitis of large intestine without perforation or abscess without bleeding K57.32 Active 9195329 Problem Biliary dyskinesia K82.8 Active 187610609 Problem Migraine with aura and without status migrainosus, not intractable G43.109 Active 5407382 ALLERGIES Substance Reaction Event Type Date Status Ultram Unknown Drug Allergy Jan, Active Lisinopril cough Drug Allergy Jan, Active SOCIAL HISTORY Never Assessed PLAN OF CARE Activity Details Follow Up 4 Weeks Reason:htn VITAL SIGNS Height 66 in 2017-01-26 Weight 306.6 lbs 2017-01-26 Temperature 98.1 degrees Fahrenheit 2017-01-26 Heart Rate 90 bpm 2017-01-26 Respiratory Rate 20 2017-01-26 BMI 49.48 kg/m2 2017-01-26 Blood pressure systolic 154 mmHg 2017-01-26 Blood pressure diastolic 92 mmHg 2017-01-26 MEDICATIONS Medication Instructions Dosage Frequency Start Date End Date Duration Status MetFORMIN HCl ER 500 MG Orally Once a day 1 tablet 24h 10 Apr, 2016 Active Ambien 5 mg Orally Once a day 1 tablet at bedtime 24h 18 Feb, 2016 Active Clonazepam 1 MG Orally Twice a day .5-1 tablet 12h 08 Sep, 2016 Active HydrOXYzine HCl 25 MG Orally Once a day at hs 1 -2 tablet as needed Nov, 0 days Active Albuterol Sulfate 90 mcg/actuation Inhalation every 8 hrs 2 puffs by Inhalation route every 4-6 hours as needed PRN cough or wheezing 8h May, Active Atenolol 50 mg Orally Once a day 1.5 tablet 24h Nov, 30 day(s) Active Venlafaxine HCl 75 MG Orally Twice a day 1 tablet with food 12h Dec, Active RESULTS No Results PROCEDURES No Known procedures IMMUNIZATIONS No Known Immunizations MEDICAL (GENERAL) HISTORY Type Description Date Medical History hypertension Medical History asthma Medical History CT 08/2016 ED-sigmoid diverticulitis, hepatic steatosis, stable bilateral low density adrenal adenomas Surgical History cholecystectomy 03/24/17 Hospitalization History Diverticulitis-[facility] 08/2016 Hospitalization History Generalized anxiety disorder-[facility] 09/2016 Hospitalization History Diverticulitis-[facility]. Left AMA 04/06/17
--- OUTSIDE RECORDS SUMMARY | 2017-09-12 12:28 | XMS REPORT ---
Author Author NUZHAT FRANKS [facility] Address [address] [place] [address] Care Team Providers Care Stock Chaser Name Role Phone NUZHAT FRANKS Unavailable PROBLEMS Type Condition ICD9-CM Code [id number] Code Onset Dates Condition Status SNOMED Code Problem Essential (primary) hypertension I10 Active 10426445 Problem Elevated LDL cholesterol level E78.0 Active 636934975 Problem Anxiety F41.9 Active 94936987 Problem CAP (community acquired pneumonia) J18.9 Active 496833649 Problem Diverticulitis of large intestine, unspecified bleeding status, unspecified complication status K57.32 Active 4702508 Problem RUQ abdominal pain R10.11 Active 340371789 Problem Insomnia, unspecified type G47.00 Active 856234342 Problem Diverticulitis of large intestine without perforation or abscess without bleeding K57.32 Active 6966380 Problem Biliary dyskinesia K82.8 Active 390534933 Problem Migraine with aura and without status migrainosus, not intractable G43.109 Active 4614529 ALLERGIES Substance Reaction Event Type Date Status Ultram Unknown Drug Allergy Nov, Active Lisinopril cough Drug Allergy Nov, Active SOCIAL HISTORY Never Assessed PLAN OF CARE Activity Details Follow Up 2 Weeks Reason:htn VITAL SIGNS Height 66 in 2016 Weight 300.4 lbs 2016 Temperature 98.5 degrees Fahrenheit 2016 Heart Rate 92 bpm 2016 Respiratory Rate 20 2016 BMI 48.48 kg/m2 2016 Blood pressure systolic 182 mmHg 2016 Blood pressure diastolic 108 mmHg 2016 MEDICATIONS Medication Instructions Dosage Frequency Start Date End Date Duration Status Ibuprofen 800 MG Orally 2 times a day 1 tablet 12h Nov, Dec, 30 day(s) Active Ambien 5 mg Orally Once a day 1 tablet at bedtime 24h Feb, Active Albuterol Sulfate 90 mcg/actuation Inhalation every 8 hrs 2 puffs by Inhalation route every 4-6 hours as needed PRN cough or wheezing 8h 29 May, 2014 Active MetFORMIN HCl ER 500 MG Orally Once a day 1 tablet 24h Apr, Active Venlafaxine HCl 75 MG Orally Twice a day 1 tablet with food 12h 10 Dec, 2015 Active Clonazepam 1 MG Orally Twice a day .5-1 tablet 12h Sep, Active HydrOXYzine HCl 25 MG Orally Once a day at hs 1 -2 tablet as needed Nov, 0 days Active Atenolol 25 MG Orally Once a day 1 tablet 24h Nov, 30 day(s) Active RESULTS No Results PROCEDURES Procedure Date Ordered Result Body Site TORADOL (IM) 60 MG/2ML (UP TO 15 MG) 2016 PHENERGAN (IM) 25 MG (25 MG/ML) 2016 THER/PROPH/DIAG INJ, SC/IM 2016 IMMUNIZATIONS Vaccine Route Administration Date Status PHENERGAN (IM) 25 MG (25 MG/ML) IM Intramuscular 2016 Administered TORADOL (IM) 60 MG/2ML (UP TO 15 MG) IM Intramuscular 2016 Administered MEDICAL (GENERAL) HISTORY Type Description Date Medical History hypertension Medical History asthma Medical History CT 08/2016 ED-sigmoid diverticulitis, hepatic steatosis, stable bilateral low density adrenal adenomas Surgical History cholecystectomy 03/24/17 Hospitalization History Diverticulitis-[facility] 08/2016 Hospitalization History Generalized anxiety disorder-[facility] 09/2016 Hospitalization [facility]. Left AMA 04/06/17
--- OUTSIDE RECORDS SUMMARY | 2017-09-12 12:30 | XMS REPORT ---
Author Author NUZHAT FRANKS [facility] Address [address] [place] [address] Care Team Providers Care Snailer Name Role Phone NUZHAT FRANKS Unavailable PROBLEMS Type Condition ICD9-CM Code [id number] Code Onset Dates Condition Status SNOMED Code Problem Essential (primary) hypertension I10 Active 01587492 Problem Elevated LDL cholesterol level E78.0 Active 254114729 Problem Anxiety F41.9 Active 51805272 Problem CAP (community acquired pneumonia) J18.9 Active 195970387 Problem Diverticulitis of large intestine, unspecified bleeding status, unspecified complication status K57.32 Active 2065234 Problem RUQ abdominal pain R10.11 Active 753022233 Problem Insomnia, unspecified type G47.00 Active 659828921 Problem Diverticulitis of large intestine without perforation or abscess without bleeding K57.32 Active 2018120 Problem Biliary dyskinesia K82.8 Active 873422262 Problem Migraine with aura and without status migrainosus, not intractable G43.109 Active 3381971 ALLERGIES Substance Reaction Event Type Date Status Ultram Unknown Drug Allergy Oct, Active Lisinopril cough Drug Allergy Oct, Active SOCIAL HISTORY No smoking Hx information available PLAN OF CARE Activity Details Follow Up 1 Week Reason:antonella VITAL SIGNS Height 66 in 2016-11-17 Weight 296 lbs 2016-11-17 Temperature 98.1 degrees Fahrenheit 2016-11-17 Heart Rate 90 bpm 2016-11-17 Respiratory Rate 16 2016-11-17 BMI 47.77 kg/m2 2016-11-17 Blood pressure systolic 160 mmHg 2016-11-17 Blood pressure diastolic 100 mmHg 2016-11-17 MEDICATIONS Medication Instructions Dosage Frequency Start Date End Date Duration Status Venlafaxine HCl 50 MG Orally Twice a day 1 tablet with food 12h 10 Dec, 2015 Active MetFORMIN HCl ER 500 MG Orally Once a day 1 tablet 24h Apr, Active Ambien 5 mg Orally Once a day 1 tablet at bedtime 24h Feb, Active Albuterol Sulfate 90 mcg/actuation Inhalation every 8 hrs 2 puffs by Inhalation route every 4-6 hours as needed PRN cough or wheezing 8h May, Active Clonazepam 1 MG Orally Twice a day .5-1 tablet 12h Sep, Active RESULTS No Results PROCEDURES Procedure Date Ordered Related Diagnosis Body Site Office Visit, Est Pt., Level 3 Nov 17, 2016 TORADOL (IM) 60 MG/2ML (UP TO 15 MG) Nov 17, 2016 PHENERGAN (IM) 25 MG (25 MG/ML) Nov 17, 2016 THER/PROPH/DIAG INJ, SC/IM Nov 17, 2016 IMMUNIZATIONS Vaccine Route Administration Date Status PHENERGAN (IM) 25 MG (25 MG/ML) IM Intramuscular Nov 17, 2016 Administered TORADOL (IM) 60 MG/2ML (UP TO 15 MG) IM Intramuscular Nov 17, 2016 Administered
--- OUTSIDE RECORDS SUMMARY | 2017-09-12 12:30 | XMS REPORT ---
Author Author NUZHAT FRANKS [facility] Address [address] [place] [address] Care Team Providers Care Senior Java Programmer Name Role Phone NUZHAT FRANKS Unavailable PROBLEMS Type Condition ICD9-CM Code [id number] Code Onset Dates Condition Status SNOMED Code Problem Essential (primary) hypertension I10 Active 68745985 Problem Elevated LDL cholesterol level E78.0 Active 197543541 Problem Anxiety F41.9 Active 42864190 Problem CAP (community acquired pneumonia) J18.9 Active 273743968 Problem Diverticulitis of large intestine, unspecified bleeding status, unspecified complication status K57.32 Active 8910635 Problem RUQ abdominal pain R10.11 Active 188847541 Problem Insomnia, unspecified type G47.00 Active 133714907 Problem Diverticulitis of large intestine without perforation or abscess without bleeding K57.32 Active 6807372 Problem Biliary dyskinesia K82.8 Active 893275755 Problem Migraine with aura and without status migrainosus, not intractable G43.109 Active 2763299 ALLERGIES Substance Reaction Event Type Date Status Ultram Unknown Drug Allergy Dec, Active Lisinopril cough Drug Allergy Dec, Active SOCIAL HISTORY Never Assessed PLAN OF CARE Activity Details Follow Up 3 Weeks Reason:htn VITAL SIGNS Height 66 in 2017-01-10 Weight 303.4 lbs 2017-01-10 Temperature 97.6 degrees Fahrenheit 2017-01-10 Heart Rate 90 bpm 2017-01-10 Respiratory Rate 20 2017-01-10 BMI 48.96 kg/m2 2017-01-10 Blood pressure systolic 170 mmHg 2017-01-10 Blood pressure diastolic 100 mmHg 2017-01-10 MEDICATIONS Medication Instructions Dosage Frequency Start Date End Date Duration Status Albuterol Sulfate 90 mcg/actuation Inhalation every 8 hrs 2 puffs by Inhalation route every 4-6 hours as needed PRN cough or wheezing 8h May, Active Ambien 5 mg Orally Once a day 1 tablet at bedtime 24h Feb, Active HydrOXYzine HCl 25 MG Orally Once a day at hs 1 -2 tablet as needed Nov, 0 days Active MetFORMIN HCl ER 500 MG Orally Once a day 1 tablet 24h Apr, Active Clonazepam 1 MG Orally Twice a day .5-1 tablet 12h Sep, Active Venlafaxine HCl 75 MG Orally Twice a day 1 tablet with food 12h Dec, Active Atenolol 50 MG Orally Once a day 1 tablet 24h Nov, 30 day(s) Active RESULTS No Results PROCEDURES No Known procedures IMMUNIZATIONS No Known Immunizations MEDICAL (GENERAL) HISTORY Type Description Date Medical History hypertension Medical History asthma Medical History CT 08/2016 ED-sigmoid diverticulitis, hepatic steatosis, stable bilateral low density adrenal adenomas Surgical History cholecystectomy 03/24/17 Hospitalization History Diverticulitis-[facility] 08/2016 Hospitalization History Generalized anxiety disorder-[facility] 09/2016 Hospitalization History Diverticulitis-[facility]. Left AMA 04/06/17
--- OUTSIDE RECORDS SUMMARY | 2017-09-12 12:30 | XMS REPORT ---
Author Author NUZHAT FRANKS [facility] Address [address] [place] [address] Care Team Providers Care Director Of Mobile Marketing Name Role Phone NUZHAT FRANKS Unavailable PROBLEMS Type Condition ICD9-CM Code [id number] Code Onset Dates Condition Status SNOMED Code Problem Essential (primary) hypertension I10 Active 54007348 Problem Elevated LDL cholesterol level E78.0 Active 223362851 Problem Anxiety F41.9 Active 94324363 Problem CAP (community acquired pneumonia) J18.9 Active 269986255 Problem Diverticulitis of large intestine, unspecified bleeding status, unspecified complication status K57.32 Active 6025533 Problem RUQ abdominal pain R10.11 Active 367554014 Problem Insomnia, unspecified type G47.00 Active 455754510 Problem Diverticulitis of large intestine without perforation or abscess without bleeding K57.32 Active 8452573 Problem Biliary dyskinesia K82.8 Active 146968961 Problem Migraine with aura and without status migrainosus, not intractable G43.109 Active 9241634 ALLERGIES Substance Reaction Event Type Date Status Ultram Unknown Drug Allergy Nov, Active Lisinopril cough Drug Allergy Nov, Active SOCIAL HISTORY No smoking Hx information available PLAN OF CARE Activity Details Follow Up 4 Weeks Reason:anxiety VITAL SIGNS Height 66 in 2016-12-06 Weight 296 lbs 2016-12-06 Temperature 97.9 degrees Fahrenheit 2016-12-06 Heart Rate 92 bpm 2016-12-06 Respiratory Rate 16 2016-12-06 BMI 47.77 kg/m2 2016-12-06 Blood pressure systolic 160 mmHg 2016-12-06 Blood pressure diastolic 90 mmHg 2016-12-06 MEDICATIONS Medication Instructions Dosage Frequency Start Date End Date Duration Status Venlafaxine HCl 75 MG Orally Twice a day 1 tablet with food 12h 10 Dec, 2015 Active Clonazepam 1 MG Orally Twice a day .5-1 tablet 12h 08 Sep, 2016 Active HydrOXYzine HCl 25 MG Orally Once a day at hs 1 -2 tablet as needed Nov, 0 days Active Ibuprofen 800 MG Orally 2 times a day 1 tablet 12h Nov, 8 Dec, 2016 30 day(s) Active Promethazine HCl 25 MG Orally every 12 hrs 1 tablet as needed for Migraine 12h Nov, Nov, 0 days Active Ambien 5 mg Orally Once a day 1 tablet at bedtime 24h 18 Feb, 2016 Active Albuterol Sulfate 90 mcg/actuation Inhalation every 8 hrs 2 puffs by Inhalation route every 4-6 hours as needed PRN cough or wheezing 8h May, Active MetFORMIN HCl ER 500 MG Orally Once a day 1 tablet 24h 10 Apr, 2016 Active RESULTS No Results PROCEDURES Procedure Date Ordered Related Diagnosis Body Site Office Visit, Est Pt., Level 3 Dec 06, 2016 IMMUNIZATIONS No Known Immunizations
[2017-09-12 13:11] LABS: BASOPHILS % (AUTO) 0 % (0-10); EOSINOPHILS # (AUTO) 0.3 10^3/uL (0.0-0.3); EOSINOPHILS % (AUTO) 3 % (0-10); LYMPHOCYTES # (AUTO) 2.2 X 10^3 (1.0-4.0); LYMPHOCYTES % (AUTO) 19 % (12-44); MEAN CORPUSCULAR HEMOGLOBIN 30 PG (25-34); MEAN CORPUSCULAR HGB CONC 33 G/DL (32-36); MEAN CORPUSCULAR VOLUME 92 FL (80-99); MONOCYTES # (AUTO) 0.6 X 10^3 (0.0-1.0); MONOCYTES % (AUTO) 5 % (0-12); NEUTROPHILS # (AUTO) 8.8 X 10^3 (1.8-7.8); NEUTROPHILS % (AUTO) 73 % (42-75); PLATELET COUNT 299 10^3/uL (130-400); RED BLOOD COUNT 4.83 10^6/uL (4.35-5.85); RED CELL DISTRIBUTION WIDTH 13.3 % (10.0-14.5)
[2017-09-12] MEDS ORDERED: METR500T PO (13:12)
[2017-09-12] MEDS ORDERED: CIPR-225 PO (13:12)
[2017-09-12] MEDS ORDERED: HYDR-3812 PO (13:12)
[2017-09-12] MEDS ORDERED: CATHETER FLUSH 10 ML SYR IV PRN (13:15)
[2017-09-12] MEDS ORDERED: IOHEXOL 350 MG/ML 100 ML (OMNIPAQUE 350) VIAL IV ONE (13:15)
[2017-09-12] MEDS ORDERED: NS 100 ML (IVPB) BAG IV ONE (13:15)
[2017-09-12 13:19] LABS: ALANINE AMINOTRANSFERASE 27 U/L (0-55); ALBUMIN 3.6 GM/DL (3.2-4.5); ANION GAP 7 MMOL/L (5-14); ASPARTATE AMINO TRANSFERASE 20 U/L (5-34); BILIRUBIN,TOTAL 0.2 MG/DL (0.1-1.0); BLOOD UREA NITROGEN 8 MG/DL (7-18); BUN/CREATININE RATIO 12; CALCIUM 8.7 MG/DL (8.5-10.1); CARBON DIOXIDE 26 MMOL/L (21-32); CHLORIDE 103 MMOL/L (98-107); CREATININE SERUM 0.68 MG/DL (0.60-1.30); GFR ESTIMATED > 60; GLUCOSE 171 MG/DL (70-105); POTASSIUM 3.8 MMOL/L (3.6-5.0); SODIUM 136 MMOL/L (135-145); TOTAL PROTEIN 6.3 GM/DL (6.4-8.2)
[2017-09-12] MEDS ORDERED: KETOROLAC 30 MG/ML VIAL IVP STA (13:39)
[2017-09-12] MEDS ORDERED: NS IV 1000 ML 1,000 ML IV ONE (13:39)
--- NOTE | 2017-09-12 13:40 | ED Abdominal Pain ---
General Chief Complaint: Abdominal/GI Problems Stated Complaint: THINKS HER DIVERTICULITIS IS BACK Nursing Triage Note: pt reports she was diagnosed with diverticulitis on tuesday and was put on antibiotics. pt reports no improvement since. pt reports vomiting x 1 today. Sepsis Screen: No Definite Risk Source of Information: Patient Exam Limitations: No Limitations History of Present Illness Time Seen By Provider: 13:25 Initial Comments 36 yo female patient presents to the ED with c/o diverticulitis starting Tuesday. Patient was seen by Parth Franks and put on cipro and flagyl. denies improvement in symptoms. Patient c/o LLQ pain, nausea and vomiting. Has been on a CLD since Tuesday. C/scope approximately 4-[address] Granados showing diverticulosis. Timing/Duration: 3-4 Days, Constant Severity/Quality: Aching Location: LLQ Radiation: No Radiation Activities at Onset: None Modifying Factors: Worsens With Palpation Allergies and Home Medications Allergies Coded Allergies: tramadol HCl (Verified Allergy, Mild, HIVES, Pt has received Lortab w/o issue, 09/12/17) Home Medications Atenolol 50 Mg Tablet, 75 MG PO HS, (Reported) TAKES 1 & 1/2 (50 MG) TABLETS Cetirizine HCl 10 Mg Tablet, 10 MG PO HS, (Reported) LAST FILLED 08/08/17 #30 Ciprofloxacin HCl 500 Mg Tablet, 500 MG PO Q12H, (Reported) FILLED 09/06/17 #14 FOR A 7 DAY THERAPY Clonazepam 1 Mg Tablet, 0.5-1 MG PO BID PRN for ANXIETY, (Reported) TAKES 1/2-1 (1 MG) TABLET Fluticasone Propionate 16 Gm [place].susp, 1 SPRAY NSEACH DAILY, (Reported) LAST FILLED 06/28/17 #16GM Hydrochlorothiazide 25 Mg Tablet, 25 MG PO DAILY, (Reported) Hydrocodone/Acetaminophen 1 Each Tablet, 1 TAB PO TID PRN for PAIN-MODERATE, ( Reported) Metronidazole 500 Mg Tablet, 500 MG PO Q12H, (Reported) FILLED 09/06/17 #14 FOR A 7 DAY THERAPY Montelukast Sodium 10 Mg Tablet, 10 MG PO HS, (Reported) LAST FILLED 08/08/17 #30 Sucralfate 1 Gm Tablet, 1 GM PO ACHS PRN for STOMACH UPSET, (Reported) Review of Systems Constitutional: No chills, No fever, No malaise Respiratory: Denies Cough, Denies Shortness of Air Cardiovascular: Denies Chest Pain, Denies Edema, Denies Syncope Gastrointestinal: See HPI, Denies Abdomen Distended, Abdominal Pain, Denies Blood Streaked Stools, Denies Constipated, Denies Diarrhea, Nausea, Poor Appetite, Poor Fluid Intake, Denies Rectal Bleeding, Vomiting Genitourinary: Denies Burning, Denies Frequency, Denies Flank Pain, Denies Hematuria, Denies Pain Musculoskeletal: No back pain Skin: no symptoms reported Psychiatric/Neurological: No Symptoms Reported All Other Systems Reviewed Negative Unless Noted: Yes (Negative excepted noted.) Past Sgnilnm-Qcfapc-Mjgkvt Hx Patient Social History Alcohol Use: Denies Use Alcohol Beverage of Choice: Beer Recreational Drug Use: No Smoking Status: Current Everyday Smoker Type Used: Cigarettes Recent Foreign Travel: No Contact w/Someone Who Travel: No Recent Infectious Disease Expo: No Recent Hopitalizations: No Physical Abuse: No Sexual Abuse: No Mistreated: No Fear: No Immunizations Up To Date Tetanus Booster (TDap): More than 5yrs PED Vaccines UTD: Yes Seasonal Allergies Seasonal Allergies: Yes (MILD) Surgeries History of Surgeries: Yes (WART REMOVALS; "CYST" REMOVALS FROM SKIN OF VARIOUS PARTS OF BODY) Surgeries: Gallbladder Respiratory History of Respiratory Disorde: Yes Respiratory Disorders: Asthma Currently Using CPAP: No Currently Using BIPAP: No Cardiovascular History of Cardiac Disorders: Yes (SWELLING AT TIMES) Cardiac Disorders: Chronic Edema/Swelling, Hypertension Neurological History of Neurological Disord: Yes Neurological Disorders: Headaches /Migraines Reproductive System Hx Reproductive Disorders: Yes Sexually Transmitted Disease: No HIV/AIDS: No Female Reproductive Disorders: Menstrual Problems, Polycystic Ovarian Dis Genitourinary History of Genitourinary Disor: No Gastrointestinal History of Gastrointestinal Di: Yes (SANTORO DISEASE-FATTY LIVER) Gastrointestinal Disorders: Colitis, Gastroesophageal Reflux, Diverticulosis, Ulcer Musculoskeletal History of Musculoskeletal Dis: Yes (CHRONIC BILATERAL KNEE PAIN, chostrochrondritis) Musculoskeletal Disorders: Chronic Back Pain Endocrine History of Endocrine Disorders: Yes ("PRE" DIABETIC--DOES NOT CHECK BLOOD SUGAR ; OBESITY) Endocrine Disorders: Diabetes, Non-Insulin dep HEENT Loss of Vision: Bilateral Hearing Impairment: Denies Cancer History of Cancer: No Did You Recieve Any Treatments: No Psychosocial History of Psychiatric Problem: Yes Behavioral Health Disorders: Sleep Difficulties, Depression Suicide Risk Score: 0 Integumentary History of Skin or Integumenta: No Blood Transfusions History of Blood Disorders: No Adverse Reaction to a Blood Tr: No Reviewed Nursing Assessment Reviewed/Agree w Nursing PMH: Yes Family Medical History Significant Family History: No Pertinent Family Hx Family Medial History: Alcoholism 19 FATHER 19 MOTHER Arthritis 19 MOTHER Asthma 19 MOTHER Cancer of mouth 19 FATHER Cataracts 19 MOTHER Dementia 19 MOTHER Diabetes mellitus Drug abuse 19 FATHER 19 MOTHER Fibrocystic disease of breast 19 MOTHER Headache disorder 19 MOTHER G8 SISTER Hypertension 19 MOTHER Respiratory disorder 19 FATHER 19 MOTHER Physical Exam Vital Signs VS - Last 72 Hours, by Label 09/12/17 12:59 Temp 98.0 Pulse 103 Resp 20 B/P (MAP) 177/97 Pulse Ox 97 Capillary Refill : Less Than 3 Seconds General Appearance: WD/WN, no apparent distress, obese HEENT: PERRL/EOMI, pharynx normal Neck: supple, normal inspection Respiratory: lungs clear, normal breath sounds, no respiratory distress, no accessory muscle use Cardiovascular: normal peripheral pulses, regular rate, rhythm, no edema, no murmur Gastrointestinal: normal bowel sounds, soft, no organomegaly, No guarding (LLQ and suprapubic), No rebound, tenderness (LLQ and suprapubic) Extremities: no pedal edema, normal capillary refill Back: normal inspection, no CVA tenderness Neurologic/Psychiatric: alert, normal mood/affect, oriented x 3 Skin: normal color, warm/dry Focused Exam Evaluation Lactate Level Lactic Acid Level Progress/Results/Core Measures Results/Orders Lab Results Laboratory Tests Test 09/12/17 12:42 09/12/17 13:16 Range/Units White Blood Count 12.0 H 4.3-11.0 10^3/uL Red Blood Count 4.83 4.35-5.85 10^6/uL Hemoglobin 14.6 11.5-16.0 G/DL Hematocrit 44 35-52 % Mean Corpuscular Volume 92 80-99 FL Mean Corpuscular Hemoglobin 30 25-34 PG Mean Corpuscular Hemoglobin Concent 33 32-36 G/DL Red Cell Distribution Width 13.3 10.0-14.5 % Platelet Count 299 130-400 10^3/uL Mean Platelet Volume 11.0 H 7.4-10.4 FL Neutrophils (%) (Auto) 73 42-75 % Lymphocytes (%) (Auto) 19 12-44 % Monocytes (%) (Auto) 5 0-12 % Eosinophils (%) (Auto) 3 0-10 % Basophils (%) (Auto) 0 0-10 % Neutrophils # (Auto) 8.8 H 1.8-7.8 X 10^3 Lymphocytes # (Auto) 2.2 1.0-4.0 X 10^3 Monocytes # (Auto) 0.6 0.0-1.0 X 10^3 Eosinophils # (Auto) 0.3 0.0-0.3 10^3/uL Basophils # (Auto) 0.0 0.0-0.1 10^3/uL Sodium Level 136 135-145 MMOL/L Potassium Level 3.8 3.6-5.0 MMOL/L Chloride Level 103 98-107 MMOL/L Carbon Dioxide Level 26 21-32 MMOL/L Anion Gap 7 5-14 MMOL/L Blood Urea Nitrogen 8 7-18 MG/DL Creatinine 0.68 0.60-1.30 MG/DL Estimat Glomerular Filtration Rate > 60 BUN/Creatinine Ratio 12 Glucose Level 171 H 70-105 MG/DL Calcium Level 8.7 8.5-10.1 MG/DL Total Bilirubin 0.2 0.1-1.0 MG/DL Aspartate Amino Transf (AST/SGOT) 20 5-34 U/L Alanine Aminotransferase (ALT/SGPT) 27 0-55 U/L Alkaline Phosphatase 79 40-136 U/L C-Reactive Protein High Sensitivity 2.30 H 0.00-0.50 MG/DL Total Protein 6.3 L 6.4-8.2 GM/DL Albumin 3.6 3.2-4.5 GM/DL Urine Color YELLOW Urine Clarity CLEAR Urine pH 8 5-9 Urine Specific [place] 1.010 L 1.016-1.022 Urine Protein NEGATIVE NEGATIVE Urine Glucose (UA) NEGATIVE NEGATIVE Urine Ketones NEGATIVE NEGATIVE Urine Nitrite NEGATIVE NEGATIVE Urine Bilirubin NEGATIVE NEGATIVE Urine Urobilinogen NORMAL NORMAL MG/DL Urine Leukocyte Esterase 2+ H NEGATIVE Urine RBC (Auto) NEGATIVE NEGATIVE Urine RBC RARE /HPF Urine WBC 0-2 /HPF Urine Squamous Epithelial Cells 5-10 /HPF Urine Crystals NONE /LPF Urine Bacteria TRACE /HPF Urine Casts NONE /LPF Urine Mucus NEGATIVE /LPF Urine Culture Indicated NO My Orders Orders - JOSUE MEYERS Cbc With Automated Diff (09/12/17 13:02) Comprehensive Metabolic Panel (09/12/17 13:02) Hs C Reactive Protein (09/12/17 13:02) Ua Culture If Indicated (09/12/17 13:02) Saline Lock/Iv-Start (09/12/17 13:02) Ct Abdomen/Pelvis W (09/12/17 13:12) Iohexol Injection (Omnipaque 350 Mg/Ml 1 (09/12/17 13:15) Ns (Ivpb) (Sodium Chloride 0.9% Ivpb Bag (09/12/17 13:15) Sodium Chloride Flush (Catheter Flush Sy (09/12/17 13:15) Ketorolac Injection (Toradol Injection) (09/12/17 13:39) Ondansetron Injection (Zofran Injectio (09/12/17 13:45) Ns Iv 1000 Ml (Sodium Chloride 0.9%) (09/12/17 13:39) Lactic Acid Analyzer (09/12/17 14:24) Blood Culture (09/12/17 14:24) Piperacillin Sodium/Tazobactam (Zosyn Vi (09/12/17 14:30) Ns Iv 1000 Ml (Sodium Chloride 0.9%) (09/12/17 14:29) Medications Given in ED Vital Signs/I&O Vital Sign - Last 12Hours 09/12/17 12:59 Temp 98.0 Pulse 103 Resp 20 B/P (MAP) 177/97 Pulse Ox 97 Blood Pressure Mean: 123 Diagnostic Imaging Diagonstic Imaging: CT Plain Films/CT/US/NM/MRI: abdomen, pelvis Reviewed: Reviewed by Me (radiology report reviewed by me) Departure Communication (Admissions) Time/Spoke to Admitting Phy: 14:25 Communication gault Time/Spoke to Consulting Phy: 14:35 Communication/Consulting tevin Impression Impression: Primary Impression: Sepsis Additional Impressions: Diverticulitis failed outpatient antibiotics Disposition: ADMITTED INPATIENT Condition: Stable Admissions Decision to Admit Reason: Admit from ER (General) Decision to Admit/Date: Sep 12, 2017 Time/Decision to Admit Time: 14:25 Departure-Patient Inst. Referrals: CORBY WALTERS DO (PCP) Primary Care Physician NUZHAT FRANKS (Family) Primary Care Physician JOSUE MEYERS Sep 12, 2017 13:40
[2017-09-12] MEDS ORDERED: ONDANSETRON 4 MG/2 ML (SDV) Z0FRAN IVP ONE (13:45)
[2017-09-12 13:47] LABS: BILIRUBIN,URINE NEGATIVE (NEGATIVE); KETONES,URINE NEGATIVE (NEGATIVE); LEUKOCYTE ESTERASE ,URINE 2+ (NEGATIVE); NITRITE,URINE NEGATIVE (NEGATIVE); PH,URINE 8 (5-9); PROTEIN,URINE NEGATIVE (NEGATIVE); UROBILINOGEN,URINE NORMAL (NORMAL)
[2017-09-12 13:56] LABS: WBC,URINE 0-2 /HPF
--- NOTE | 2017-09-12 14:18 | Diagnostic Imaging Report ---
PROCEDURE: CT abdomen and pelvis with contrast. TECHNIQUE: Multiple contiguous axial images were obtained through the abdomen and pelvis after administration of intravenous contrast. INDICATION: Left-sided abdominal pain. Nausea, vomiting, and diarrhea. COMPARISON: 04/06/2017. FINDINGS: Included portions of the lung bases again show micronodule within the margins of the right lower lobe measuring approximately 4 mm. This is stable compared to prior exam (image 12, series 2). CT ABDOMEN: Since the previous exam, there has been interval development of moderate abnormal long segment thickening to the wall of the jejunum. Note is again made of colonic diverticulosis. There is subtle abnormal stranding of the pericolonic fat involving the distal descending colon (image 53, series 2). Small bowel loops are otherwise nondistended. There is no pneumatosis, pneumoperitoneum, nor portal venous gas. There is no free fluid nor loculated air-fluid collection within the abdomen. Bilateral adrenal lesions are again noted and are stable in size. These have been previously demonstrated to represent benign adenomas on prior noncontrast imaging. Liver is diffusely hypodense. No focal hepatic mass type lesions are identified. The pancreas, kidneys, and spleen continue to have a normal appearance. No abnormal mesenteric or retroperitoneal adenopathy is seen. Bony structures show no acute abnormalities. CT PELVIS: Urinary bladder is grossly unremarkable. There is no loculated fluid collection, free fluid, nor free air within the pelvis. No abnormal lymph nodes are seen. Bony structures show no acute abnormalities. IMPRESSION: 1. Interval development of moderate long segment abnormal thickened appearance to the jejunum concerning for enteritis. Given the close proximity to the abnormal appearing descending colon, however, findings could be reactive. 2. Colonic diverticulosis with findings consistent with acute diverticulitis of the distal descending colon. 3. No pneumatosis, pneumoperitoneum, nor portal venous gas. 3. Stable bilateral adrenal lesions, which have been shown to represent benign adrenal adenomas on prior imaging. 4. Hepatic steatosis. Dictated by: Dictated on workstation # [id number]
[2017-09-12] MEDS ORDERED: NS IV 1000 ML 3,000 ML IV ONE (14:29)
[2017-09-12] MEDS ORDERED: PIPERACILLIN SODIUM/TAZOBACTAM 4.5 GM in NS (IVPB) 100 ML IV ONE (14:30)
[2017-09-12] MEDS ORDERED: morphine INJ 10 MG/ML 1ML (SYR OR VIAL) IVP STA (15:20)
[2017-09-12] MEDS ORDERED: NICOTINE 21 MG (NICODERM) PATCH TD ONE (15:30)
[2017-09-12 16:05] VITALS: BP 140/82
[2017-09-12] MEDS ORDERED: fentaNYL INJECTION 100 MCG/2 ML AMP IV PRN (16:45)
[2017-09-12] MEDS ORDERED: KETOROLAC 30 MG/ML VIAL IV PRN (16:45)
[2017-09-12] MEDS ORDERED: ONDANSETRON 4 MG/2 ML (SDV) Z0FRAN IV PRN (16:45)
[2017-09-12] MEDS: NS IV 1000 ML 1,000 ML IV SCH ×2 (17:28→23:32)
[2017-09-12] MEDS ORDERED: MONT10TA24 PO (17:31)
[2017-09-12] MEDS ORDERED: SUCR1TAB PO (17:31)
[2017-09-12] MEDS ORDERED: FLUT16SP22 NSEACH (17:31)
[2017-09-12] MEDS ORDERED: CETI10TA17 PO (17:31)
[2017-09-12] MEDS ORDERED: INFLUENZA TRIvalent 2017-2018 0.5 ML/45 MCG SYR IM ONE (18:00)
[2017-09-12 19:20] VITALS: BP 156/91
[2017-09-12] MEDS: HYDROcodone/APAP 5 MG/325 MG (LORTAB) TAB PO PRN (19:40)
[2017-09-12] MEDS: FAMOTIDINE 20 MG (PEPCID) TABLET PO SCH (19:41)
--- NOTE | 2017-09-12 20:14 | Consultation ---
History of Present Illness History of Present Illness Patient Consulted On(phill/time) 09/12/17 20:10 Date Seen by Provider: Sep 12, 2017 Time Seen by Provider: 20:10 History of Present Illness Consult requested for diverticulitis from Dr. Yeung Patient is a 36-year-old female who states she's been having pain in her abdomen since last Tuesday. The pain began in the right lower quadrant. She said it is sharp pain that would come and go. It then migrated to the left lower quadrant. Patient states that nothing really seems to make it worse and nothing was seems to make it better. She saw Parth Morfin was started on Cipro and Flagyl and was on a liquid diet and has not had any improvement. Patient then came to emergency department for further evaluation. She had a CT scan demonstrating a portion of the jejunum being thickened but next to the descending colon with some inflammation around it as well suggestive of either enteritis or reactive to acute diverticulitis. There is no free air no pneumatosis. Other findings stable as compared to previous CAT scans. Patient has associated nausea and vomiting. She has not had a temperature greater than 100.4 home. She denies any sweats chills shortness of breath or chest pain. She had previous colonoscopy demonstrating diverticulosis. Allergies and Home Medications Allergies Coded Allergies: tramadol HCl (Verified Allergy, Mild, HIVES, Pt has received Lortab w/o issue, 09/12/17) Home Medications Atenolol 50 Mg Tablet, 75 MG PO HS, (Reported) TAKES 1 & 1/2 (50 MG) TABLETS Cetirizine HCl 10 Mg Tablet, 10 MG PO HS, (Reported) LAST FILLED 08/08/17 #30 Ciprofloxacin HCl 500 Mg Tablet, 500 MG PO Q12H, (Reported) FILLED 09/06/17 #14 FOR A 7 DAY THERAPY Clonazepam 1 Mg Tablet, 0.5-1 MG PO BID PRN for ANXIETY, (Reported) TAKES 1/2-1 (1 MG) TABLET Fluticasone Propionate 16 Gm [place].susp, 1 SPRAY NSEACH DAILY, (Reported) LAST FILLED 06/28/17 #16GM Hydrochlorothiazide 25 Mg Tablet, 25 MG PO DAILY, (Reported) Hydrocodone/Acetaminophen 1 Each Tablet, 1 TAB PO TID PRN for PAIN-MODERATE, ( Reported) Metronidazole 500 Mg Tablet, 500 MG PO Q12H, (Reported) FILLED 09/06/17 #14 FOR A 7 DAY THERAPY Montelukast Sodium 10 Mg Tablet, 10 MG PO HS, (Reported) LAST FILLED 08/08/17 #30 Sucralfate 1 Gm Tablet, 1 GM PO ACHS PRN for STOMACH UPSET, (Reported) Past [id number] Hx Patient Social History Alcohol Use: Occasionally Uses Recreational Drug Use: No Smoking Status: Current Everyday Smoker Type Used: Cigars Recent Foreign Travel: No Contact w/Someone Who Travel: No Recent Infectious Disease Expo: No Recent Hopitalizations: No Physical Abuse Screen: No Sexual Abuse: No Immunizations Up To Date Tetanus Booster (TDap): More than 5yrs PED Vaccines UTD: Yes Seasonal Allergies Seasonal Allergies: Yes (MILD) Surgeries History of Surgeries: Yes (WART REMOVALS; "CYST" REMOVALS FROM SKIN OF VARIOUS PARTS OF BODY) Surgeries: Gallbladder Respiratory History of Respiratory Disorde: Yes Respiratory Disorders: Asthma Cardiovascular History of Cardiac Disorders: Yes (SWELLING AT TIMES) Cardiac Disorders: Chronic Edema/Swelling, Hypertension Neurological History of Neurological Disord: Yes Neurological Disorders: Headaches /Migraines Reproductive System : No Hx Reproductive Disorders: Yes Sexually Transmitted Disease: No HIV/AIDS: No Female Reproductive Disorders: Menstrual Problems, Polycystic Ovarian Dis Genitourinary History of Genitourinary Disor: No Gastrointestinal History of Gastrointestinal Di: Yes (SANTORO DISEASE-FATTY LIVER) Gastrointestinal Disorders: Colitis, Gastroesophageal Reflux, Diverticulosis, Ulcer Musculoskeletal History of Musculoskeletal Dis: Yes (CHRONIC BILATERAL KNEE PAIN, chostrochrondritis) Musculoskeletal Disorders: Chronic Back Pain Endocrine History of Endocrine Disorders: Yes ("PRE" DIABETIC--DOES NOT CHECK BLOOD SUGAR ; OBESITY) Endocrine Disorders: Diabetes, Non-Insulin dep HEENT Loss of Vision: Bilateral Hearing Impairment: Denies Cancer History of Cancer: No Psychosocial History of Psychiatric Problem: Yes Behavioral Health Disorders: Sleep Difficulties, Depression Integumentary History of Skin or Integumenta: No Blood Transfusions History of Blood Disorders: No Adverse Reaction to a Blood Tr: No Reviewed Nursing Assessment Reviewed/Agree w Nursing PMH: Yes Family Medical History Significant Family History: No Pertinent Family Hx Family Medial History: Alcoholism 19 FATHER 19 MOTHER Arthritis 19 MOTHER Asthma 19 MOTHER Cancer of mouth 19 FATHER Cataracts 19 MOTHER Dementia 19 MOTHER Diabetes mellitus Drug abuse 19 FATHER 19 MOTHER Fibrocystic disease of breast 19 MOTHER Headache disorder 19 MOTHER G8 SISTER Hypertension 19 MOTHER Respiratory disorder 19 FATHER 19 MOTHER Review of Systems-General Constitutional: see HPI EENTM: no symptoms reported Respiratory: no symptoms reported Gastrointestinal: RLQ, LLQ, see HPI Genitourinary: no symptoms reported Musculoskeletal: no symptoms reported Skin: no symptoms reported Psychiatric/Neurological: No Symptoms Reported Physical Exam-General Problems Physical Exam Vital Signs Vital Sign - Last 12Hours 09/12/17 09/12/17 12:59 16:05 Temp 98.0 Pulse 103 Resp 20 B/P (MAP) 177/97 Pulse Ox 97 O2 Delivery Room Air Capillary Refill : Less Than 3 SecondsLess Than 3 Seconds General Appearance: no apparent distress HEENT: PERRL/EOMI, normal ENT inspection Neck: non-tender, full range of motion, supple Respiratory: normal breath sounds, no respiratory distress, no accessory muscle use Cardiovascular: regular rate, rhythm, no edema Gastrointestinal: soft, no organomegaly, tenderness (left lower quadrant) Rectal: deferred Back: no CVA tenderness Extremities: non-tender, normal inspection 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, no motor/sensory deficits, alert, normal mood/affect, oriented x 3 Skin: warm/dry Data Review Labs Laboratory Tests 09/12/17 12:42: White Blood Count 12.0H, Red Blood Count 4.83, Hemoglobin 14.6, Hematocrit 44, Mean Corpuscular Volume 92, Mean Corpuscular Hemoglobin 30, Mean Corpuscular Hemoglobin Concent 33, Red Cell Distribution Width 13.3, Platelet Count 299, Mean Platelet Volume 11.0H, Neutrophils (%) (Auto) 73, Lymphocytes (%) (Auto) 19 , Monocytes (%) (Auto) 5, Eosinophils (%) (Auto) 3, Basophils (%) (Auto) 0, Neutrophils # (Auto) 8.8H, Lymphocytes # (Auto) 2.2, Monocytes # (Auto) 0.6, Eosinophils # (Auto) 0.3, Basophils # (Auto) 0.0, Sodium Level 136, Potassium Level 3.8, Chloride Level 103, Carbon Dioxide Level 26, Anion Gap 7, Blood Urea Nitrogen 8, Creatinine 0.68, Estimat Glomerular Filtration Rate > 60, BUN/ Creatinine Ratio 12, Glucose Level 171H, Calcium Level 8.7, Total Bilirubin 0.2 , Aspartate Amino Transf (AST/SGOT) 20, Alanine Aminotransferase (ALT/SGPT) 27, Alkaline Phosphatase 79, C-Reactive Protein High Sensitivity 2.30H, Total Protein 6.3L, Albumin 3.6 09/12/17 13:16: Urine Color YELLOW, Urine Clarity CLEAR, Urine pH 8, Urine Specific [place] 1.010L, Urine Protein NEGATIVE, Urine Glucose (UA) NEGATIVE, Urine Ketones NEGATIVE, Urine Nitrite NEGATIVE, Urine Bilirubin NEGATIVE, Urine Urobilinogen NORMAL, Urine Leukocyte Esterase 2+H, Urine RBC (Auto) NEGATIVE, Urine RBC RARE , Urine WBC 0-2, Urine Squamous Epithelial Cells 5-10, Urine Crystals NONE, Urine Bacteria TRACE, Urine Casts NONE, Urine Mucus NEGATIVE, Urine Culture Indicated NO 09/12/17 14:45: Lactic Acid Level 1.00 Assessment/Plan Assessment/Plan Assessment/Plan LEFT LOWER QUADRANT ABDOMINAL PAIN N/V DIVERTICULITIS NPO IV HYDRATION ZOSYN REPEAT LABS IN AM Clinical Quality Measures DVT/VTE Risk/Contraindication: Risk Factor Score Per Nursin RFS Level Per Nursing on Admit: 4+=Very High MARCELINA BRYAN DO Sep 12, 2017 20:14
[2017-09-12] MEDS: PIPERACILLIN/TAZOBACTAM 4.5 GM/NS 100 ML IVPB IV SCH ×2 (20:36)
[2017-09-13] MEDS: HYDROcodone/APAP 5 MG/325 MG (LORTAB) TAB PO PRN ×3 (00:16→08:53)
[2017-09-13 00:25] VITALS: BP 158/88
[2017-09-13 04:25] VITALS: BP 137/87
[2017-09-13] MEDS: PIPERACILLIN/TAZOBACTAM 4.5 GM/NS 100 ML IVPB IV SCH ×4 (04:38→13:27)
[2017-09-13 06:15] LABS: BASOPHILS % (AUTO) 0 % (0-10); EOSINOPHILS # (AUTO) 0.5 10^3/uL (0.0-0.3); EOSINOPHILS % (AUTO) 5 % (0-10); LYMPHOCYTES # (AUTO) 2.6 X 10^3 (1.0-4.0); LYMPHOCYTES % (AUTO) 26 % (12-44); MEAN CORPUSCULAR HEMOGLOBIN 30 PG (25-34); MEAN CORPUSCULAR HGB CONC 32 G/DL (32-36); MEAN CORPUSCULAR VOLUME 95 FL (80-99); MEAN PLATELET VOLUME 10.9 FL (7.4-10.4); MONOCYTES # (AUTO) 0.8 X 10^3 (0.0-1.0); MONOCYTES % (AUTO) 8 % (0-12); NEUTROPHILS # (AUTO) 6.1 X 10^3 (1.8-7.8); NEUTROPHILS % (AUTO) 61 % (42-75); PLATELET COUNT 263 10^3/uL (130-400); RED BLOOD COUNT 4.22 10^6/uL (4.35-5.85); RED CELL DISTRIBUTION WIDTH 13.5 % (10.0-14.5); WHITE BLOOD COUNT 10.1 10^3/uL (4.3-11.0)
[2017-09-13] MEDS: NS IV 1000 ML 1,000 ML IV SCH ×3 (06:22→15:20)
[2017-09-13 06:34] LABS: ALANINE AMINOTRANSFERASE 50 U/L (0-55); ALBUMIN 3.1 GM/DL (3.2-4.5); ANION GAP 8 MMOL/L (5-14); ASPARTATE AMINO TRANSFERASE 43 U/L (5-34); BILIRUBIN,TOTAL 0.3 MG/DL (0.1-1.0); BLOOD UREA NITROGEN 9 MG/DL (7-18); BUN/CREATININE RATIO 13; CALCIUM 7.5 MG/DL (8.5-10.1); CARBON DIOXIDE 24 MMOL/L (21-32); CHLORIDE 107 MMOL/L (98-107); CREATININE SERUM 0.69 MG/DL (0.60-1.30); GFR ESTIMATED > 60; GLUCOSE 92 MG/DL (70-105); POTASSIUM 4.1 MMOL/L (3.6-5.0); SODIUM 139 MMOL/L (135-145); TOTAL PROTEIN 5.5 GM/DL (6.4-8.2)
[2017-09-13 08:00] VITALS: BP 117/76
[2017-09-13] MEDS: FAMOTIDINE 20 MG (PEPCID) TABLET PO SCH (08:14)
[2017-09-13] MEDS ORDERED: NICOTINE PATCH REMOVAL TP SCH (08:59)
[2017-09-13] MEDS ORDERED: NICOTINE 21 MG (NICODERM) PATCH TD SCH (09:00)
--- NOTE | 2017-09-13 09:01 | History & Physicial (CHS) ---
IDA HENLEY MED STUDENT 09/13/17 0900: HPI History of Present Illness: Patient presented to the ED yesterday for diverticulitis. Patient had been having abdominal pain the started Sep.03 in the RLQ with nausea and non- bloody diarrhea. The pain was getting worse and migrated the the LLQ. Patient saw Parth Morfin on Sep 06 and he gave her Cipro and Flagyl and she took those meds for 5 days. Patient had no improvement of symptoms. She Patient had a colonoscopy earlier this year which showed diverticulosis. Denies fever. Denies dizziness. Since starting Pip/Tazo, she states she feels much better. Patient still admits to tenderness in the LLQ. He last bowel movement was yesterday. She requests to go home today. Source: patient Exam Limitations: no limitations Date seen by provider: Sep 13, 2017 Time Seen by Provider: 10:00 Attending Physician Power Abebe MD PCP Rosana Hurtado DO Consult Date of Admission Sep 12, 2017 at 14:35 Home Medications Home Medications Reviewed patient Home Medication Reconciliation Form Allergies Coded Allergies: tramadol HCl (Verified Allergy, Mild, HIVES, Pt has received Lortab w/o issue, 09/12/17) [id number] Hx Patient Social History Alcohol Use: Occasionally Uses Recreational Drug Use: No Smoking Status: Current Everyday Smoker Type Used: Cigars Recent Foreign Travel: No Contact w/other who traveled: No Recent Hopitalizations: No Recent Infectious Disease Expo: No Physical Abuse Screen: No Sexual Abuse: No Immunizations Up To Date Tetanus Booster (TDap): More than 5yrs Past Medical History - HTN Surg History - Lap Chrissie 02/2017 Family Medical History Significant Family History: No Pertinent Family Hx Family History: Alcoholism 19 FATHER 19 MOTHER Arthritis 19 MOTHER Asthma 19 MOTHER Cancer of mouth 19 FATHER Cataracts 19 MOTHER Dementia 19 MOTHER Diabetes mellitus Drug abuse 19 FATHER 19 MOTHER Fibrocystic disease of breast 19 MOTHER Headache disorder 19 MOTHER G8 SISTER Hypertension 19 MOTHER Respiratory disorder 19 FATHER 19 MOTHER Review of Systems (CHC) Constitutional: No dizziness, No fever EENTM: no symptoms reported Respiratory: no symptoms reported Cardiovascular: no symptoms reported Gastrointestinal: abdominal pain (LLQ), diarrhea Genitourinary: no symptoms reported : No Musculoskeletal: no symptoms reported Skin: no symptoms reported Psychiatric/Neurological: No Symptoms Reported Physical Exam-(CHC) Physical Exam Vital Signs VS - Last 72 Hours, by Label 09/12/17 09/12/17 09/12/17 09/12/17 12:59 16:04 16:05 16:56 Temp 98.0 97.8 Pulse 103 92 76 Resp 20 18 18 B/P (MAP) 177/97 140/82 Pulse Ox 97 96 95 O2 Delivery Room Air Room Air 09/12/17 09/13/17 09/13/17 09/13/17 19:20 00:25 04:25 08:00 Temp 98.0 98.6 97.6 97.6 Pulse 84 80 83 85 Resp 20 20 18 18 B/P (MAP) 156/91 158/88 137/87 117/76 Pulse Ox 96 98 95 94 O2 Delivery Room Air Room Air Room Air Room Air Capillary Refill : Less Than 3 SecondsLess Than 3 Seconds General Appearance: no apparent distress, obese HEENT: normal ENT inspection Neck: non-tender, supple, normal inspection Respiratory: no respiratory distress, wheezing Cardiovascular: regular rate, rhythm, no murmur Gastrointestinal: normal bowel sounds, soft, tenderness (LLQ) Rectal: deferred Extremities: normal inspection Neurologic/Psychiatric: alert, normal mood/affect Skin: normal color, warm/dry Lymphatic: no adenopathy Clinical Quality Measures DVT/VTE Risk/Contraindication: Risk Factor Score Per Nursin RFS Level Per Nursing on Admit: 4+=Very High Copy Copies To 1: [facility] Parth Hyde Assessment/Plan Assessment/Plan Admission Dx Diverticulits Failed outpt Abxs Plan 36 y/o female with hx of diverticulitis. Assessment: Acute Diverticulitis Plan: Advance diet to soft foods. Observe patient until completion of next dose of IV Pip/Tazo. POWER ABEBE MD 09/13/17 1111: HPI History of Present Illness: Reviewed student's HPI with patient Home Medications Allergies Coded Allergies: tramadol HCl (Verified Allergy, Mild, HIVES, Pt has received Lortab w/o issue, 09/12/17) [id number] Hx Past Medical History Asthma Bilateral Adrenal Adenomas Diverticulitis with normal colonoscopy this year Hepatic Stetatosis Pre DM HTN Family Medical History Family History: Alcoholism 19 FATHER 19 MOTHER Arthritis 19 MOTHER Asthma 19 MOTHER Cancer of mouth 19 FATHER Cataracts 19 MOTHER Dementia 19 MOTHER Diabetes mellitus Drug abuse 19 FATHER 19 MOTHER Fibrocystic disease of breast 19 MOTHER Headache disorder 19 MOTHER G8 SISTER Hypertension 19 MOTHER Respiratory disorder 19 FATHER 19 MOTHER Review of Systems (CHC) Constitutional: No malaise, No weakness Respiratory: No cough, No dyspnea on exertion, No short of breath Cardiovascular: No chest pain, No edema, No palpitations Gastrointestinal: loss of appetite, No melena, No nausea, No vomiting Genitourinary: No dysuria, No frequency, No hematuria Psychiatric/Neurological: Denies Anxiety, Denies Depressed Reviewed Test Results Reviewed Test Results Lab Laboratory Tests Test 09/12/17 12:42 09/12/17 13:16 09/12/17 14:45 09/13/17 05:32 Range/Units White Blood Count 12.0 H 10.1 4.3-11.0 10^3/uL Red Blood Count 4.83 4.22 L 4.35-5.85 10^6/uL Hemoglobin 14.6 12.7 11.5-16.0 G/DL Hematocrit 44 40 35-52 % Mean Corpuscular Volume 92 95 80-99 FL Mean Corpuscular Hemoglobin 30 30 25-34 PG Mean Corpuscular Hemoglobin Concent 33 32 32-36 G/DL Red Cell Distribution Width 13.3 13.5 10.0-14.5 % Platelet Count 299 263 130-400 10^3/uL Mean Platelet Volume 11.0 H 10.9 H 7.4-10.4 FL Neutrophils (%) (Auto) 73 61 42-75 % Lymphocytes (%) (Auto) 19 26 12-44 % Monocytes (%) (Auto) 5 8 0-12 % Eosinophils (%) (Auto) 3 5 0-10 % Basophils (%) (Auto) 0 0 0-10 % Neutrophils # (Auto) 8.8 H 6.1 1.8-7.8 X 10^3 Lymphocytes # (Auto) 2.2 2.6 1.0-4.0 X 10^3 Monocytes # (Auto) 0.6 0.8 0.0-1.0 X 10^3 Eosinophils # (Auto) 0.3 0.5 H 0.0-0.3 10^3/uL Basophils # (Auto) 0.0 0.0 0.0-0.1 10^3/uL Sodium Level 136 139 135-145 MMOL/L Potassium Level 3.8 4.1 3.6-5.0 MMOL/L Chloride Level 103 107 98-107 MMOL/L Carbon Dioxide Level 26 24 21-32 MMOL/L Anion Gap 7 8 5-14 MMOL/L Blood Urea Nitrogen 8 9 7-18 MG/DL Creatinine 0.68 0.69 0.60-1.30 MG/DL Estimat Glomerular Filtration Rate > 60 > 60 BUN/Creatinine Ratio 12 13 Glucose Level 171 H 92 70-105 MG/DL Calcium Level 8.7 7.5 L 8.5-10.1 MG/DL Total Bilirubin 0.2 0.3 0.1-1.0 MG/DL Aspartate Amino Transf (AST/SGOT) 20 43 H 5-34 U/L Alanine Aminotransferase (ALT/SGPT) 27 50 0-55 U/L Alkaline Phosphatase 79 70 40-136 U/L C-Reactive Protein High Sensitivity 2.30 H 0.00-0.50 MG/DL Total Protein 6.3 L 5.5 L 6.4-8.2 GM/DL Albumin 3.6 3.1 L 3.2-4.5 GM/DL Urine Color YELLOW Urine Clarity CLEAR Urine pH 8 5-9 Urine Specific [place] 1.010 L 1.016-1.022 Urine Protein NEGATIVE NEGATIVE Urine Glucose (UA) NEGATIVE NEGATIVE Urine Ketones NEGATIVE NEGATIVE Urine Nitrite NEGATIVE NEGATIVE Urine Bilirubin NEGATIVE NEGATIVE Urine Urobilinogen NORMAL NORMAL MG/DL Urine Leukocyte Esterase 2+ H NEGATIVE Urine RBC (Auto) NEGATIVE NEGATIVE Urine RBC RARE /HPF Urine WBC 0-2 /HPF Urine Squamous Epithelial Cells 5-10 /HPF Urine Crystals NONE /LPF Urine Bacteria TRACE /HPF Urine Casts NONE /LPF Urine Mucus NEGATIVE /LPF Urine Culture Indicated NO Lactic Acid Level 1.00 0.50-2.00 MMOL/L Radiology Date of Exam: 09/12/17 CT ABDOMEN/PELVIS W PROCEDURE: CT abdomen and pelvis with contrast. TECHNIQUE: Multiple contiguous axial images were obtained through the abdomen and pelvis after administration of intravenous contrast. INDICATION: Left-sided abdominal pain. Nausea, vomiting, and diarrhea. COMPARISON: 04/06/2017. FINDINGS: Included portions of the lung bases again show micronodule within the margins of the right lower lobe measuring approximately 4 mm. This is stable compared to prior exam (image 12, series 2). CT ABDOMEN: Since the previous exam, there has been interval development of moderate abnormal long segment thickening to the wall of the jejunum. Note is again made of colonic diverticulosis. There is subtle abnormal stranding of the pericolonic fat involving the distal descending colon (image 53, series 2). Small bowel loops are otherwise nondistended. There is no pneumatosis, pneumoperitoneum, nor portal venous gas. There is no free fluid nor loculated air-fluid collection within the abdomen. Bilateral adrenal lesions are again noted and are stable in size. These have been previously demonstrated to represent benign adenomas on prior noncontrast imaging. Liver is diffusely hypodense. No focal hepatic mass type lesions are identified. The pancreas, kidneys, and spleen continue to have a normal appearance. No abnormal mesenteric or retroperitoneal adenopathy is seen. Bony structures show no acute abnormalities. CT PELVIS: Urinary bladder is grossly unremarkable. There is no loculated fluid collection, free fluid, nor free air within the pelvis. No abnormal lymph nodes are seen. Bony structures show no acute abnormalities. IMPRESSION: 1. Interval development of moderate long segment abnormal thickened appearance to the jejunum concerning for enteritis. Given the close proximity to the abnormal appearing descending colon, however, findings could be reactive. 2. Colonic diverticulosis with findings consistent with acute diverticulitis of the distal descending colon. 3. No pneumatosis, pneumoperitoneum, nor portal venous gas. 3. Stable bilateral adrenal lesions, which have been shown to represent benign adrenal adenomas on prior imaging. 4. Hepatic steatosis. Physical Exam-(CHC) Physical Exam Vital Signs VS - Last 72 Hours, by Label 09/12/17 09/12/17 09/12/17 09/12/17 12:59 16:04 16:05 16:56 Temp 98.0 97.8 Pulse 103 92 76 Resp 20 18 18 B/P (MAP) 177/97 140/82 Pulse Ox 97 96 95 O2 Delivery Room Air Room Air 09/12/17 09/13/17 09/13/17 09/13/17 19:20 00:25 04:25 08:00 Temp 98.0 98.6 97.6 97.6 Pulse 84 80 83 85 Resp 20 20 18 18 B/P (MAP) 156/91 158/88 137/87 117/76 Pulse Ox 96 98 95 94 O2 Delivery Room Air Room Air Room Air Room Air 09/13/17 10:35 O2 Delivery Room Air Gastrointestinal: tenderness (LLQ, no rebound or gaurding) [facility]/Plan Assessment/Plan Plan 36 yo Admitted with Diverticulitis failed 5 days outpatient treatment Acute Diverticulitis - Surgery evaluated patient - Will advance diet today to soft - If tolerated will plan to send patient home after afternoon antibiotics are given HTN: Controlled - Continue home meds Mild persistent Asthma - Continue allergy medication and PRN breathing treatments FEN: Soft diet, advance as tolerated DVT PPX: SCDs while in bed Dispo: If patient tolerates diet will d/c home with close followup with Parth Morfin in [place] IDA HENLEY STUDENT Sep 13, 2017 09:00 POWER ABEBE MD Sep 13, 2017 11:11
[2017-09-13] MEDS ORDERED: SUCRALFATE 1 GM (CARAFATE) TAB PO PRN (11:15)
[2017-09-13] MEDS ORDERED: HYDROcodone/APAP 5 MG/325 MG (LORTAB) TAB PO PRN (11:30)
[2017-09-13 12:00] VITALS: BP 120/74
--- NOTE | 2017-09-13 16:16 | Progress Note ---
Subjective Date Seen by Provider: Sep 13, 2017 Time Seen by Provider: 16:13 Subjective/Events-last exam Patient states she's feeling better. She states her pain is about a 4 out of 10 compared to 8 out of 10 yesterday. Patient is not had any more nausea or vomiting. Patient with blood cell count went down today. Patient states she's going home. She denies any fever sweats chills shortness of breath chest pain still with abdominal pain but more tolerable. Objective Exam Vital Signs Date Time Temp Pulse Resp B/P (MAP) Pulse Ox O2 Delivery O2 Flow Rate FiO2 09/13/17 12:00 98.6 87 18 120/74 98 Room Air 09/13/17 10:35 Room Air 09/13/17 08:00 97.6 85 18 117/76 94 Room Air 09/13/17 04:25 97.6 83 18 137/87 95 Room Air 09/13/17 00:25 98.6 80 20 158/88 98 Room Air 09/12/17 19:20 98.0 84 20 156/91 96 Room Air 09/12/17 16:56 Room Air I & O 09/14/17 07:00 Intake Total 720 ml Output Total 300 ml Balance 420 ml Capillary Refill : Less Than 3 SecondsLess Than 3 Seconds General Appearance: No Apparent Distress HEENT: PERRL/EOMI Neck: Supple Respiratory: No Accessory Muscle Use, No Respiratory Distress Cardiovascular: Regular Rate, Rhythm Gastrointestinal: soft, no organomegaly, tenderness (left lower quadrant less) Extremity: Normal Range of Motion, Non Tender Neurologic/Psychiatric: Alert, Oriented x3, No Motor/Sensory Deficits, Normal Mood/Affect Skin: Normal Color, Warm/Dry Results Lab Laboratory Tests 09/13/17 05:32: White Blood Count 10.1, Red Blood Count 4.22L, Hemoglobin 12.7, Hematocrit 40, Mean Corpuscular Volume 95, Mean Corpuscular Hemoglobin 30, Mean Corpuscular Hemoglobin Concent 32, Red Cell Distribution Width 13.5, Platelet Count 263, Mean Platelet Volume 10.9H, Neutrophils (%) (Auto) 61, Lymphocytes (%) (Auto) 26 , Monocytes (%) (Auto) 8, Eosinophils (%) (Auto) 5, Basophils (%) (Auto) 0, Neutrophils # (Auto) 6.1, Lymphocytes # (Auto) 2.6, Monocytes # (Auto) 0.8, Eosinophils # (Auto) 0.5H, Basophils # (Auto) 0.0, Sodium Level 139, Potassium Level 4.1, Chloride Level 107, Carbon Dioxide Level 24, Anion Gap 8, Blood Urea Nitrogen 9, Creatinine 0.69, Estimat Glomerular Filtration Rate > 60, BUN/ Creatinine Ratio 13, Glucose Level 92, Calcium Level 7.5L, Total Bilirubin 0.3, Aspartate Amino Transf (AST/SGOT) 43H, Alanine Aminotransferase (ALT/SGPT) 50, Alkaline Phosphatase 70, Total Protein 5.5L, Albumin 3.1L Assessment/Plan Assessment/Plan Assessment/Plan LEFT LOWER QUADRANT ABDOMINAL PAIN N/V DIVERTICULITIS Patient instructed to stay on clear liquids and then slowly advance diet Patient to finish on antibiotics. Patient insisted on going home if she has any worsening condition she was instructed to return to the hospital. Patient understands. Clinical Quality Measures DVT/VTE Risk/Contraindication: Risk Factor Score Per Nursin RFS Level Per Nursing on Admit: 4+=Very High MARCELINA BRYAN DO Sep 13, 2017 16:16
[2017-09-13 16:31] VITALS: BP 143/85
--- NOTE | 2017-09-13 16:48 | Discharge Summary ---
Diagnosis/Chief Complaint Date of Admission Sep 12, 2017 at 14:35 Date of Discharge 09/13/17 Admission Diagnosis Admission Diagnosis Acute Diverticulitis HTN Mild persistent Asthma Discharge Diagnosis See Above Chief Complaint/HPI Chief Complaint/HPI Reviewed student's HPI with patient Discharge Summary-Simple/Stand Consultations Dr Granados, DO with General Surgery Discharge Physical Examination Allergies: Coded Allergies: tramadol HCl (Verified Allergy, Mild, HIVES, Pt has received Lortab w/o issue, 09/12/17) Vitals & I&Os Vital Sign - Last 12Hours Date Time Temp Pulse Resp B/P (MAP) Pulse Ox O2 Delivery O2 Flow Rate FiO2 09/13/17 16:31 97.1 82 18 143/85 100 Room Air Intake and Output 09/14/17 00:00 Intake Total 720 ml Output Total 300 ml Balance 420 ml General Appearance: Alert, Oriented X3, Cooperative, No Acute Distress HEENT: Atraumatic, PERRLA Respiratory: Clear to Auscultation, Normal Air Movement Cardiovascular: Regular Rate, No Murmurs Abdominal: Normal Bowel Sounds, Soft, No Tenderness Extremities: No Edema, No Tenderness/Swelling Skin: No Rashes Psych/Mental Status: Mental Status NL, Mood NL Hospital Course See final discharge diagnosis. Radiology Reviewed Date of Exam: 09/12/17 CT ABDOMEN/PELVIS W PROCEDURE: CT abdomen and pelvis with contrast. TECHNIQUE: Multiple contiguous axial images were obtained through the abdomen and pelvis after administration of intravenous contrast. INDICATION: Left-sided abdominal pain. Nausea, vomiting, and diarrhea. COMPARISON: 04/06/2017. FINDINGS: Included portions of the lung bases again show micronodule within the margins of the right lower lobe measuring approximately 4 mm. This is stable compared to prior exam (image 12, series 2). CT ABDOMEN: Since the previous exam, there has been interval development of moderate abnormal long segment thickening to the wall of the jejunum. Note is again made of colonic diverticulosis. There is subtle abnormal stranding of the pericolonic fat involving the distal descending colon (image 53, series 2). Small bowel loops are otherwise nondistended. There is no pneumatosis, pneumoperitoneum, nor portal venous gas. There is no free fluid nor loculated air-fluid collection within the abdomen. Bilateral adrenal lesions are again noted and are stable in size. These have been previously demonstrated to represent benign adenomas on prior noncontrast imaging. Liver is diffusely hypodense. No focal hepatic mass type lesions are identified. The pancreas, kidneys, and spleen continue to have a normal appearance. No abnormal mesenteric or retroperitoneal adenopathy is seen. Bony structures show no acute abnormalities. CT PELVIS: Urinary bladder is grossly unremarkable. There is no loculated fluid collection, free fluid, nor free air within the pelvis. No abnormal lymph nodes are seen. Bony structures show no acute abnormalities. IMPRESSION: 1. Interval development of moderate long segment abnormal thickened appearance to the jejunum concerning for enteritis. Given the close proximity to the abnormal appearing descending colon, however, findings could be reactive. 2. Colonic diverticulosis with findings consistent with acute diverticulitis of the distal descending colon. 3. No pneumatosis, pneumoperitoneum, nor portal venous gas. 3. Stable bilateral adrenal lesions, which have been shown to represent benign adrenal adenomas on prior imaging. 4. Hepatic steatosis. Discussion & Recommendations See H and P Discharge Condition at discharge Improved Instructions to patient/family Please see electronic discharge instructions given to patient. Discharge Medications Reviewed and agree with Discharge Medication list on patient's Discharge Instruction sheet Clinical Quality Measures DVT/VTE Risk/Contraindication: Risk Factor Score Per Nursin RFS Level Per Nursing on Admit: 4+=Very High Copy Copies To 1: [facility] POWER Jalloh MD Sep 13, 2017 16:48
--- NOTE | 2017-09-13 16:52 | Discharge Instructions ---
Discharge Inst-[facility] Discharge Medications New, Converted or Re-Newed RX: Other (No new meds) Continued Medications: Atenolol (Atenolol) 50 Mg Tablet 75 MG PO HS, TAB TAKES 1 & 1/2 (50 MG) TABLETS Cetirizine HCl (Cetirizine HCl) 10 Mg Tablet 10 MG PO HS, TAB LAST FILLED 08/08/17 #30 Ciprofloxacin HCl (Cipro) 500 Mg Tablet 500 MG PO Q12H, TAB FILLED 09/06/17 #14 FOR A 7 DAY THERAPY Clonazepam (Clonazepam) 1 Mg Tablet 0.5-1 MG PO BID PRN for ANXIETY, TAB TAKES 1/2-1 (1 MG) TABLET Fluticasone Propionate (Fluticasone Propionate) 16 Gm Fiatt.susp 1 SPRAY NSEACH DAILY, SPRAY LAST FILLED 06/28/17 #16GM Hydrochlorothiazide (Hydrochlorothiazide) 25 Mg Tablet 25 MG PO DAILY, TAB Hydrocodone/Acetaminophen (Hydrocodon -Acetaminophen 5-325) 1 Each Tablet 1 TAB PO TID PRN for PAIN-MODERATE, TAB Metronidazole (Flagyl) 500 Mg Tablet 500 MG PO Q12H, TAB FILLED 09/06/17 #14 FOR A 7 DAY THERAPY Montelukast Sodium (Montelukast Sodium) 10 Mg Tablet 10 MG PO HS, TAB LAST FILLED 08/08/17 #30 Sucralfate (Sucralfate) 1 Gm Tablet 1 GM PO ACHS PRN for STOMACH UPSET, TAB Patient Instructions Goal/Follow Up Appt: You have a followup appt with Parth Morfin in [place] on Sep 20 @ 320 PM Patient Instructions: - Make sure you stay on a clear diet until your pain has improved Return to The [facility] For: - Increase in abdominal pain - Unable to tolerate antibiotics Activity & Diet Discharge Diet: Liquid Diet Activity as Tolerated: Yes Orders-Post D/C & Referrals Pneu Vac Indicated: Yes Copy Copies To 1: [facility] POWER Jalloh MD Sep 13, 2017 16:52
[2017-09-13 17:48] VITALS: BP 143/85
[2017-09-13] MEDS ORDERED: MONTELUKAST 10 MG (SINGULAIR) TAB PO SCH (21:00)
[2017-09-13] MEDS ORDERED: LORATADINE (CLARITIN) 10 MG TAB PO SCH (21:00)
[2017-09-14] MEDS ORDERED: HYDROCHLOROTHIAZIDE 25 MG (HCTZ) TAB PO SCH (09:00)
[2017-09-14] MEDS ORDERED: FLUTICASONE NASAL SPRAY (FLONASE) 16 GM BTL NS SCH (09:00)
== END 2017-09-13 17:48 | disposition home or self-care (01) | DRG 392 ==
LOC: EDUNIT# 12:19 → ER 12:21 → 4TH 14:35
PROVIDERS: ADMIT Family Medicine; ATTEND Family Medicine
DX: K57.32 Diverticulitis of large intestine without perforation or abscess without bleeding (principal); I10 Essential (primary) hypertension; F17.210 Nicotine dependence, cigarettes, uncomplicated; D35.00 Benign neoplasm of unspecified adrenal gland; K76.0 Fatty (change of) liver, not elsewhere classified; J45.909 Unspecified asthma, uncomplicated; K21.9 Gastro-esophageal reflux disease without esophagitis; R73.03 Prediabetes; F32.9 Major depressive disorder, single episode, unspecified
CPT/HCPCS: 36415; 74177; 80053; 81000; 83605; 85025; 86141; 87040

== ENCOUNTER → 2017-09-22 | Outpatient (CLI) | payer OTHER ==
[~2017-09-22] MED LIST changes: +CETI10TA17 PO; +FLUT16SP22 NSEACH; +MONT10TA24 PO; +SUCR1TAB PO
--- NOTE | 2017-09-22 11:13 | Diagnostic Imaging Report ---
PROCEDURE: CT right lower extremity without contrast. TECHNIQUE: Axially acquired CT was obtained through the right lower extremity without intravenous contrast. Coronal and sagittal reformations were also performed. INDICATION: Right lower extremity pain and swelling status post trauma. COMPARISON: None available. FINDINGS: There is no acute or healing fracture of the right tibia or fibula. No focal osseous lesion or abnormal periosteal reaction. Lateral subluxation of the tibia relative to the trochlea is likely degenerative in nature. No trochlear dysplasia. The musculature of the right lower leg is normal in attenuation. There is a curvilinear and elongated hyperdense collection along the anterior aspect of the proximal tibial diaphysis most indicative of subcutaneous hematoma. This measures approximately 9 cm in craniocaudal dimension, 1.5 cm in thickness and 4.0 cm in width. No knee joint effusion. There is a small benign intramuscular lipoma within the proximal medial head of the gastrocnemius. IMPRESSION: 1. Small elongated subcutaneous hematoma along the anterior aspect of the proximal tibia. 2. No acute or healing fracture. Dictated by: Dictated on workstation # [id number]
--- NOTE | 2017-09-22 11:22 | Diagnostic Imaging Report ---
EXAMINATION: Right lower extremity duplex venous ultrasound. TECHNIQUE: DVT protocol. Multiple sonographic images with color Doppler and waveform interrogation were performed of the right lower extremity veins with compression and augmentation maneuvers. INDICATION: Right leg pain, swelling after fall. FINDINGS: The right lower extremity veins from the groin to below the knee veins were examined with normal color-flow, compressibility and normal waveform demonstrated. The great saphenous vein is patent. There is a hypoechoic lesion measuring 3.8 x 1.2 x 4.9 cm in the anterior aspect of the lower leg at the area of swelling probably related to hematoma. IMPRESSION: No evidence of DVT in the right lower extremity. Hypoechoic lesion along the anterior aspect of the lower leg at the area of swelling is probably a soft tissue hematoma from the recent fall. Dictated by: Dictated on workstation # [id number]
== END ==
LOC: RAD 10:14
DX: S80.11XA Contusion of right lower leg, initial encounter (principal); W19.XXXA Unspecified fall, initial encounter; Y99.8 Other external cause status
CPT/HCPCS: 73700

== ENCOUNTER 2018-01-27 10:43 | Emergency (ER) | payer SELFPAY ==
[~2018-01-27] VITALS: Ht 162.6 cm; Wt 140.2 kg
[~2018-01-27 10:43] MED LIST changes: +AZIT250T12 PO; -AZIT250T5 PO; -HYDR-3812 PO
--- OUTSIDE RECORDS SUMMARY | 2018-01-27 10:49 | XMS REPORT ---
Author Author NUZHAT FRANKS [facility] Address [address] [place] [address] Care Team Providers Care Ticket Collector Name Role Phone NUZHAT FRANKS Unavailable PROBLEMS Type Condition ICD9-CM Code [id number] Code Onset Dates Condition Status SNOMED Code Problem Essential (primary) hypertension I10 Active 84903570 Problem Elevated LDL cholesterol level E78.0 Active 377914191 Problem Anxiety F41.9 Active 82913738 Problem CAP (community acquired pneumonia) J18.9 Active 598655822 Problem Diverticulitis of large intestine, unspecified bleeding status, unspecified complication status K57.32 Active 6664598 Problem RUQ abdominal pain R10.11 Active 984710525 Problem Insomnia, unspecified type G47.00 Active 570965217 Problem Diverticulitis of large intestine without perforation or abscess without bleeding K57.32 Active 2189625 Problem Biliary dyskinesia K82.8 Active 252399526 Problem Migraine with aura and without status migrainosus, not intractable G43.109 Active 7395098 ALLERGIES No Information SOCIAL HISTORY Never Assessed PLAN OF CARE VITAL SIGNS MEDICATIONS No Known Medications RESULTS No Results PROCEDURES No Known procedures IMMUNIZATIONS No Known Immunizations MEDICAL (GENERAL) HISTORY Type Description Date Medical History hypertension Medical History asthma Medical History CT 08/2016 ED-sigmoid diverticulitis, hepatic steatosis, stable bilateral low density adrenal adenomas Medical History GERD Medical History IBSD Medical History sleep apnea Surgical History cholecystectomy 03/24/17 Hospitalization History Diverticulitis-[facility] 08/2016 Hospitalization History Generalized anxiety disorder-[facility] 09/2016 Hospitalization History [facility]. Left AMA 04/06/17
--- OUTSIDE RECORDS SUMMARY | 2018-01-27 10:50 | XMS REPORT ---
Author Author NUZHAT FRANKS [facility] Address [address] [place] [address] Care Team Providers Care Warp Bleaching Vat Tender Name Role Phone NUZHAT FRANKS Unavailable PROBLEMS Type Condition ICD9-CM Code [id number] Code Onset Dates Condition Status SNOMED Code Problem Essential (primary) hypertension I10 Active 12614247 Problem Elevated LDL cholesterol level E78.0 Active 268496132 Problem Anxiety F41.9 Active 10274651 Problem CAP (community acquired pneumonia) J18.9 Active 592358125 Problem Diverticulitis of large intestine, unspecified bleeding status, unspecified complication status K57.32 Active 5417670 Problem RUQ abdominal pain R10.11 Active 881998953 Problem Insomnia, unspecified type G47.00 Active 908215542 Problem Diverticulitis of large intestine without perforation or abscess without bleeding K57.32 Active 6336105 Problem Biliary dyskinesia K82.8 Active 747648202 Problem Migraine with aura and without status migrainosus, not intractable G43.109 Active 4564210 ALLERGIES Substance Reaction Event Type Date Status Ultram hives Drug Allergy March, Active Lisinopril cough Drug Allergy March, Active SOCIAL HISTORY Never Assessed PLAN OF CARE Activity Details Follow Up prn Reason: VITAL SIGNS Height 66 in 2017-04-05 Weight 304.6 lbs 2017-04-05 Temperature 98.0 degrees Fahrenheit 2017-04-05 Heart Rate 100 bpm 2017-04-05 Respiratory Rate 18 2017-04-05 BMI 49.16 kg/m2 2017-04-05 Blood pressure systolic 120 mmHg 2017-04-05 Blood pressure diastolic 78 mmHg 2017-04-05 MEDICATIONS Medication Instructions Dosage Frequency Start Date End Date Duration Status Aciphex 20 mg Orally Once a day 1 tablet 24h March, Active Ibuprofen 800 MG Orally Three times a day 1 tablet with food or milk 8h March, Apr, 30 day(s) Active Atenolol 50 mg Orally Once a day 1.5 tablet 24h Nov, Active Hydrochlorothiazide 25 MG Orally Once a day 1 tablet in the morning 24h Jan, Active RESULTS Name Result Date Reference Range UA LONG DIP (IN HOUSE) 2017-04-05 Lot # [id number] Exp date 12/15 Clarity cloudy Color yellow Odor no GLU neg LINDA neg KET neg SG 1.020 BLO 3+ pH 6.0 Protein trace URO 0.2 NIT neg BRIAN 1+ Lot # Exp date PROCEDURES Procedure Date Ordered Result Body Site URINALYSIS, AUTO, W/O SCOPE April 05, 2017 IMMUNIZATIONS No Known Immunizations MEDICAL (GENERAL) HISTORY Type Description Date Medical History hypertension Medical History asthma Medical History CT 08/2016 ED-sigmoid diverticulitis, hepatic steatosis, stable bilateral low density adrenal adenomas Medical History GERD Medical History IBSD Medical History sleep apnea Surgical History cholecystectomy 03/24/17 Hospitalization History Diverticulitis-[facility] 08/2016 Hospitalization History Generalized anxiety disorder-[facility] 09/2016 Hospitalization History Diverticulitis-[facility]. Left AMA 04/06/17
--- OUTSIDE RECORDS SUMMARY | 2018-01-27 10:51 | XMS REPORT ---
Author Author POWER ABEBE Organization [facility] [place] Address [address] [place] [address] Care Team Providers Care Field Pipelines Supervisor Name Role Phone POWER ABEBE Unavailable PROBLEMS Type Condition ICD9-CM Code HNL45-VN Code Onset Dates Condition Status SNOMED Code Problem Essential (primary) hypertension I10 Active 68122015 Problem Elevated LDL cholesterol level E78.0 Active 225942037 Problem Anxiety F41.9 Active 11425173 Problem CAP (community acquired pneumonia) J18.9 Active 560725595 Problem Diverticulitis of large intestine, unspecified bleeding status, unspecified complication status K57.32 Active 2554528 Problem RUQ abdominal pain R10.11 Active 402841575 Problem Insomnia, unspecified type G47.00 Active 016259795 Problem Diverticulitis of large intestine without perforation or abscess without bleeding K57.32 Active 5913002 Problem Biliary dyskinesia K82.8 Active 378496084 Problem Migraine with aura and without status migrainosus, not intractable G43.109 Active 8506679 ALLERGIES No Information SOCIAL HISTORY Never Assessed PLAN OF CARE VITAL SIGNS MEDICATIONS Medication Instructions Dosage Frequency Start Date End Date Duration Status HydrOXYzine HCl 25 MG Orally Once a day at hs 1 -2 tablet as needed Nov, 0 days Active Hydrochlorothiazide 25 MG Orally Once a day 1 tablet in the morning 24h Jan, Active Metronidazole 500 MG Orally every 8 hrs 1 tablet 8h March, March, Active Clonazepam 1 MG Orally Twice a day .5-1 tablet 12h Sep, Active Cipro 500 MG Orally Twice a day 1 tablet 12h March, March, Active Atenolol 50 mg Orally Once a day 1.5 tablet 24h Nov, Active RESULTS No Results PROCEDURES No Known procedures IMMUNIZATIONS No Known Immunizations MEDICAL (GENERAL) HISTORY Type Description Date Medical History hypertension Medical History asthma Medical History CT 08/2016 ED-sigmoid diverticulitis, hepatic steatosis, stable bilateral low density adrenal adenomas Medical History GERD Medical History IBSD Medical History sleep apnea Surgical History cholecystectomy 03/24/17 Hospitalization History Diverticulitis-[facility] 08/2016 Hospitalization History Generalized anxiety disorder-[facility] 09/2016 Hospitalization History Diverticulitis-[facility]. Left AMA 04/06/17
--- OUTSIDE RECORDS SUMMARY | 2018-01-27 10:55 | XMS REPORT | Continuity of Care Document ---
Author Author Formerly [facility] Address Unknown Phone Unavailable Allergies Active Description Code Type Severity Reaction Onset Reported/Identified Relationship to Patient Clinical Status Yes Ultram Drug Allergy 10/08/2009 Yes Ultram Drug Allergy N/A N/A 10/08/2009 Yes lisinopril 10 mg tablet Drug Allergy N/A N/A 03/19/2013 Yes tramadol HCl [id number] Drug Allergy Mild HIVES 03/17/2017 Yes tramadol HCl [id number] Drug Allergy Mild HIVES, Pt has r 09/12/2017 Medications There is no data. Problems Date Dx Coded Attending Type Code Diagnosis Diagnosed By 04/03/2009 NUZHAT FRANKS APRN 079.99 UNSPECIFIED VIRAL INFECTION 04/03/2009 NUZHAT FRANKS APRN 462 ACUTE PHARYNGITIS 04/03/2009 079.99 UNSPECIFIED VIRAL INFECTION 04/03/2009 462 ACUTE PHARYNGITIS 04/03/2009 079.99 UNSPECIFIED VIRAL INFECTION 04/03/2009 462 ACUTE PHARYNGITIS 04/03/2009 FAUZIA VALLADARES MD 079.99 UNSPECIFIED VIRAL INFECTION 04/03/2009 FAUZIA VALLADARES MD [id number] ACUTE PHARYNGITIS 04/03/2009 079.99 UNSPECIFIED VIRAL INFECTION [...] WALTERS DO 079.99 UNSPECIFIED VIRAL INFECTION 04/03/2009 WALTERS DO, CORBY K 462 ACUTE PHARYNGITIS 04/03/2009 WALTERS DO, CORBY K 079.99 UNSPECIFIED VIRAL INFECTION 04/03/2009 WALTERS DO, CORBY K 462 ACUTE PHARYNGITIS 04/03/2009 TYLER GAN MD 079.99 UNSPECIFIED VIRAL INFECTION 04/03/2009 TYLER GAN MD 462 ACUTE PHARYNGITIS 10/08/2009 NUZHAT FRANKS APRN 401.1 BENIGN ESSENTIAL HYPERTENSION 10/08/2009 NUZHAT FRANKS APRN 784.0 HEADACHE 10/08/2009 401.1 BENIGN ESSENTIAL HYPERTENSION 10/08/2009 784.0 HEADACHE 10/08/2009 401.1 BENIGN ESSENTIAL HYPERTENSION 10/08/2009 784.0 HEADACHE 10/08/2009 FAUZIA VALLADARES MD 401.1 BENIGN ESSENTIAL HYPERTENSION 10/08/2009 FAUZIA VALLADARES MD 784.0 HEADACHE 10/08/2009 401.1 BENIGN ESSENTIAL HYPERTENSION 10/08/2009 784.0 HEADACHE 10/08/2009 NUZHAT FRANKS APRN R 401.1 BENIGN ESSENTIAL HYPERTENSION 10/08/2009 FRANKSNUZHAT RIVERA APRN R 784.0 HEADACHE 10/08/2009 WALTERS DO, [...] K 784.0 HEADACHE 10/08/2009 TYLER GAN MD 401.1 BENIGN ESSENTIAL HYPERTENSION 10/08/2009 TYLER GAN MD N 784.0 HEADACHE 10/22/2009 NUZHAT FRANKS APRN 493.90 ASTHMA, UNSPECIFIED, UNSPECIFIED 10/22/2009 493.90 ASTHMA, UNSPECIFIED, UNSPECIFIED 10/22/2009 493.90 ASTHMA, UNSPECIFIED, UNSPECIFIED 10/22/2009 FAUZIA VALLADARES MD 493.90 ASTHMA, UNSPECIFIED, UNSPECIFIED 10/22/2009 493.90 ASTHMA, UNSPECIFIED, UNSPECIFIED 10/22/2009 NUZHAT FRANKS APRN 493.90 ASTHMA, UNSPECIFIED, UNSPECIFIED 10/22/2009 CORBY WALTERS DO K 493.90 ASTHMA, UNSPECIFIED, UNSPECIFIED 10/22/2009 JAMIE TORRES, KATELYN Farah 493.90 ASTHMA, UNSPECIFIED, UNSPECIFIED 10/22/2009 CORBY WALTERS DO K 493.90 ASTHMA, UNSPECIFIED, UNSPECIFIED 10/22/2009 SOFIE WALTERS DOA K 493.90 ASTHMA, UNSPECIFIED, UNSPECIFIED 10/22/2009 TYLER GAN MD 493.90 ASTHMA, UNSPECIFIED, UNSPECIFIED 12/10/2009 NUZHAT FRANKS APRN 465.9 ACUTE UPPER [...] WITH (ACUTE) EXACERBATION 12/10/2009 CORBY WALTERS DO K 465.9 ACUTE UPPER RESPIRATORY INFECTIONS OF UNSPECIFIED SITE 12/10/2009 CORBY WALTERS DO K 493.92 ASTHMA, UNSPECIFIED, WITH (ACUTE) EXACERBATION 12/10/2009 CORBY WALTERS DO K 465.9 ACUTE UPPER RESPIRATORY INFECTIONS OF [...] FRANKS APRN 339.10 TENSION-TYPE HEADACHE 01/13/2010 CORBY WALTRES DO 339.10 TENSION-TYPE HEADACHE 01/13/2010 KATELYN AYALA DDS 339.10 TENSION-TYPE HEADACHE 01/13/2010 CORBY WALTERS DO K 339.10 TENSION-TYPE HEADACHE 01/13/2010 SOFIE WALTERS DOA K 339.10 TENSION-TYPE HEADACHE 01/13/2010 TYLER GAN MD [...] pain made worse by breathing 02/25/2010 CORBY WALTERS DO 786.52 chest pain made worse by breathing 02/25/2010 MALIK PELLETIER, TYLER Taylor 786.52 chest pain made worse by breathing 05/08/2010 NUZHAT FRANKS APRN 616.0 CERVICITIS AND ENDOCERVICITIS 05/08/2010 616.0 CERVICITIS AND ENDOCERVICITIS 05/08/2010 616.0 CERVICITIS AND ENDOCERVICITIS 05/08/2010 FAUZIA VALLADARES MD 616.0 CERVICITIS AND ENDOCERVICITIS 05/08/2010 616.0 CERVICITIS AND ENDOCERVICITIS 05/08/2010 NUZHAT FRANKS APRN 616.0 CERVICITIS AND ENDOCERVICITIS 05/08/2010 ROMEO NOBLE, CORBY K 616.0 CERVICITIS AND ENDOCERVICITIS 05/08/2010 JAMIE MORILLOS, KATELYN Farah 616.0 CERVICITIS AND ENDOCERVICITIS 05/08/2010 WALTERS , CORBY K 616.0 CERVICITIS AND ENDOCERVICITIS 05/08/2010 ROMEO NOBLE, CORBY K 616.0 CERVICITIS AND ENDOCERVICITIS 05/08/2010 MALIK PELLETIER, TYLER Taylor 616.0 CERVICITIS AND ENDOCERVICITIS 05/21/2010 NUZHAT FRANKS APRN 338.19 OTHER ACUTE [...] CELLULITIS AND ABSCESS, UNSPECIFIED SITE 05/21/2010 JAMIE DDS, KATELYN Farah 338.19 OTHER ACUTE PAIN 05/21/2010 JAMIE DDS, KATELYN Farah 682.9 OTHER CELLULITIS AND ABSCESS, UNSPECIFIED SITE 05/21/2010 WALTERS DO, CORBY K 338.19 OTHER ACUTE PAIN 05/21/2010 WALTERS DO, CORBY K 682.9 OTHER CELLULITIS AND ABSCESS, UNSPECIFIED SITE 05/21/2010 WALTERS DO, CORBY K 338.19 OTHER ACUTE PAIN 05/21/2010 WALTERS DO, CORBY K 682.9 OTHER CELLULITIS AND ABSCESS, UNSPECIFIED SITE 05/21/2010 MALIK PELLETIER, TYLER Taylor 338.19 OTHER ACUTE PAIN 05/21/2010 MALIK PELLETIER, TYLER Taylor 682.9 OTHER CELLULITIS AND ABSCESS, UNSPECIFIED SITE [...] NUZHAT FRANKS APRN 372.30 CONJUNCTIVITIS UNSPECIFIED 06/26/2010 SOFIE WALTERS DOA K 278.02 OVERWEIGHT 06/26/2010 WALTERS DO CORBY K 300.00 ANXIETY UNSPEC 06/26/2010 WALTERS DO, CORBY K 372.30 CONJUNCTIVITIS UNSPECIFIED 06/26/2010 JAMIE MORILLOS, KATELYN Farah 278.02 OVERWEIGHT 06/26/2010 JAMIE MORILLOS, KATELYN Farah 300.00 ANXIETY UNSPEC 06/26/2010 JAMIE MORILLOS, KATELYN Farah 372.30 CONJUNCTIVITIS UNSPECIFIED 06/26/2010 WALTERS DO, CORBY K 278.02 OVERWEIGHT 06/26/2010 WALTERS DO, CORBY K 300.00 ANXIETY UNSPEC 06/26/2010 WALTERS DO, CORBY K 372.30 CONJUNCTIVITIS UNSPECIFIED 06/26/2010 WALTERS DO, CORBY K 278.02 OVERWEIGHT 06/26/2010 WALTERS DO, OCRBY K 300.00 ANXIETY UNSPEC 06/26/2010 WALTERS DO, [...] CORBY K 461.9 ACUTE SINUSITIS UNSPECIFIED 11/25/2011 KATELYN AYALA DDS 461.9 ACUTE SINUSITIS UNSPECIFIED 11/25/2011 WALTERS DO, [...] 02/23/2013 078.10 WARTS 02/23/2013 078.10 WARTS 02/23/2013 FAUZIA VALLADARES MD 078.10 WARTS 02/23/2013 078.10 WARTS 02/23/2013 NUZHAT FRANKS APRN 078.10 WARTS 02/23/2013 WALTERS DO, CORBY K 078.10 WARTS 02/23/2013 JAMIE TORRES, KATELYN Farah 078.10 WARTS 02/23/2013 WALTERS DO, CORBY K 078.10 WARTS 02/23/2013 WALTERS DO, CORBY K 078.10 WARTS 02/23/2013 TYLER GAN MD 078.10 WARTS 03/06/2013 278.00 OBESITY 03/06/2013 625.8 vaginal odor 03/06/2013 V74.5 visit for: screening exam bact/spirochetal STD 03/06/2013 V76.2 Cervical Pap Smear 03/06/2013 FAUZIA VALLADARES MD 278.00 OBESITY 03/06/2013 FAUZIA VALLADARES [...] FRANKS APRN V74.5 visit for: screening exam bact/spirochetal STD 03/06/2013 NUZHAT FRANKS APRN V76.2 Cervical Pap Smear 03/06/2013 ROMEO NOBLE, CORBY K 278.00 OBESITY 03/06/2013 WALTERS DO, CORBY K 625.8 vaginal odor 03/06/2013 WALTERS DO, CORBY K V74.5 visit for: screening exam bact/spirochetal STD 03/06/2013 WALTERS DO, CORBY K V76.2 Cervical Pap Smear 03/06/2013 JAMIE DDS, KATELYN D 278.00 OBESITY 03/06/2013 JAMIE DDS, KATELYN D 625.8 vaginal odor 03/06/2013 JAMIE DDS, KATELYN D V74.5 visit for: screening exam bact/spirochetal STD 03/06/2013 JAMIE DDS, KATELYN Farah V76.2 Cervical Pap Smear 03/06/2013 WALTERS DO, CORBY K 278.00 OBESITY 03/06/2013 WALTERS DO, CORBY K 625.8 vaginal odor 03/06/2013 WALTERS DO, CORBY K V74.5 visit for: screening exam bact/spirochetal STD 03/06/2013 WALTERS DO, CORBY K V76.2 Cervical Pap Smear 03/06/2013 WALTERS DO, CORBY K 278.00 OBESITY 03/06/2013 WALTERS DO, CORBY K 625.8 vaginal odor 03/06/2013 WALTERS DO, CORBY K V74.5 visit for: screening exam bact/spirochetal STD 03/06/2013 ROMEO NOBLE CORBY K V76.2 Cervical Pap Smear 03/06/2013 TYLER GAN MD 278.00 OBESITY 03/06/2013 TYLER GAN MD 625.8 vaginal odor 03/06/2013 TYLER GAN MD V74.5 visit for: screening exam bact/spirochetal STD 03/06/2013 TYLER GAN MD V76.2 Cervical Pap Smear 01/24/2014 NUZHAT FRANKS APRN 924.3 CONTUSION OF TOE 01/24/2014 NUZHAT FRANKS APRN E849.0 HOME ACCIDENTS 01/24/2014 WALTERS DO, CORBY K 924.3 CONTUSION OF TOE 01/24/2014 WALTERS , CORBY K E849.0 HOME ACCIDENTS 01/24/2014 JAMIE TORRES, KATELYN Farah 924.3 CONTUSION OF TOE 01/24/2014 JAMIE TORRES, KATELYN Farah E849.0 HOME ACCIDENTS 01/24/2014 WALTERS DO, CORBY K 924.3 CONTUSION OF TOE 01/24/2014 WALTERS DO, CORBY K E849.0 HOME ACCIDENTS 01/24/2014 WALTERS DO, CORBY K 924.3 CONTUSION OF TOE 01/24/2014 WALTERS DO, CORBY K E849.0 HOME ACCIDENTS 01/24/2014 TYLER GAN MD 924.3 CONTUSION OF TOE 01/24/2014 TYLER GAN MD E849.0 HOME ACCIDENTS 06/25/2014 WALTERS , CORBY K 522.5 PERIAPICAL ABSCESS WITHOUT SINUS 06/25/2014 JAMIE TORRES, KATELYN Farah 522.5 PERIAPICAL ABSCESS WITHOUT SINUS 06/25/2014 WALTERS CORBY NOBLE K 522.5 PERIAPICAL ABSCESS WITHOUT SINUS 06/25/2014 WALTERS , CORBY K 522.5 PERIAPICAL ABSCESS WITHOUT SINUS 06/25/2014 TYLER GAN MD 522.5 PERIAPICAL ABSCESS WITHOUT SINUS 07/26/2014 JAMIE TORRES, KATELYN Farah 053.9 HERPES ZOSTER WITHOUT COMPLICATION 07/26/2014 WALTERS , CORBY K 053.9 HERPES ZOSTER WITHOUT COMPLICATION 07/26/2014 WALTERS SOFIE NOBLEA K 053.9 HERPES ZOSTER WITHOUT COMPLICATION 07/26/2014 TYLER GAN MD 053.9 HERPES ZOSTER WITHOUT COMPLICATION 10/03/2014 SOFIE WALTERS DOA K 346.00 MIGRAINE WITH AURA WITHOUT MENTION OF INTRACTABLE MIGRAINE WITHOUT MENTION OF STATUS MIGRAINOSUS 10/03/2014 WALTERS SOFIE NOBLEA K 346.00 MIGRAINE WITH AURA WITHOUT MENTION OF INTRACTABLE MIGRAINE WITHOUT MENTION OF STATUS MIGRAINOSUS 10/03/2014 TYLER GAN MD N 346.00 MIGRAINE WITH AURA WITHOUT MENTION OF INTRACTABLE MIGRAINE WITHOUT MENTION OF STATUS MIGRAINOSUS 11/17/2014 ROSIBEL PELLETIER, VA Odell Ot 922.31 BACK CONTUSION 11/17/2014 VA GLEASON [...] 728.85 MUSCLE SPASM 11/26/2014 TYLER GAN MD N 728.85 MUSCLE SPASM 03/04/2015 TYLER GAN MD N 703.0 INGROWING NAIL 05/09/2015 JOSUE CUNNINGHAM Ot 401.9 HYPERTENSION NOS 05/09/2015 JOSUE CUNNINGHAM Ot 682.6 CELLULITIS OF LEG 05/09/2015 JOSUE CUNNINGHAM Ot 989.5 TOXIC EFFECT VENOM 05/09/2015 JOSUE CUNNINGHAM Ot E849.0 ACCIDENT IN HOME 05/09/2015 JOSUE CUNNINGHAM Ot E905.1 VENOMOUS SPIDER BITE 05/09/2015 JOSUE CUNNINGHAM Ot V06.1 [id number], COMBINED [ 05/09/2015 JOSUE CUNNINGHAM Ot V15.81 [...] 09/03/2016 ARNEL DO, PRINCESS K Ot Z79.84 LONG-TERM (CURRENT) USE OF ORAL HYPOGLYC 09/03/2016 ARNEL DO, PRINCESS K Ot Z79.899 OTHER PROBATION AGENT (CURRENT) DRUG THERAPY 09/03/2016 ARNEL DO, PRINCESS [...] ARNEL DO, PRINCESS K Ot Z79.899 OTHER LONG-TERM (CURRENT) DRUG THERAPY 09/06/2016 ALCON LEE MD Ot E11.9 TYPE 2 DIABETES MELLITUS WITHOUT COMPLIC 09/06/2016 ALCON LEE MD Ot F17.210 NICOTINE DEPENDENCE, CIGARETTES, UNCOMPL 09/06/2016 ALCON LEE MD Ot I10 ESSENTIAL (PRIMARY) HYPERTENSION 09/06/2016 ALCON LEE MD Ot J45.909 UNSPECIFIED ASTHMA, UNCOMPLICATED 09/06/2016 ALCON LEE MD Ot K57.92 DVTRCLI OF INTEST, PART UNSP, W/O PERF O 10/27/2016 ALCON LEE MD Ot E66.01 MORBID (SEVERE) OBESITY DUE TO EXCESS CA 10/27/2016 ALCON LEE MD Ot E88.81 METABOLIC SYNDROME 10/27/2016 ALCON LEE MD Ot F17.210 NICOTINE DEPENDENCE, CIGARETTES, UNCOMPL 10/27/2016 ALCON LEE MD Ot F32.9 MAJOR DEPRESSIVE DISORDER, SINGLE EPISOD 10/27/2016 ALCON LEE MD Ot F41.0 PANIC DISORDER WITHOUT AGORAPHOBIA 10/27/2016 ALCON LEE MD, Ot F41.1 GENERALIZED ANXIETY DISORDER 10/27/2016 ALCON LEE MD, Ot I10 ESSENTIAL (PRIMARY) HYPERTENSION 10/27/2016 ALCON LEE MD, Ot J45.909 UNSPECIFIED ASTHMA, UNCOMPLICATED 10/27/2016 ACLON LEE MD, Ot R07.9 CHEST PAIN, UNSPECIFIED 10/27/2016 ALCON LEE MD Ot R73.03 PREDIABETES 10/27/2016 ALCON LEE MD Ot Z68.42 BODY MASS INDEX (BMI) 45.0-49.9, ADULT 10/27/2016 ALCON LEE MD Ot E66.01 MORBID (SEVERE) OBESITY DUE TO EXCESS CA 10/27/2016 ALCON LEE MD, Ot E88.81 METABOLIC SYNDROME 10/27/2016 ALCON LEE MD, Ot F17.210 NICOTINE DEPENDENCE, CIGARETTES, UNCOMPL 10/27/2016 ALCON LEE MD, Ot F32.9 MAJOR DEPRESSIVE DISORDER, SINGLE EPISOD 10/27/2016 ALCON LEE MD, Ot F41.0 PANIC DISORDER WITHOUT AGORAPHOBIA 10/27/2016 ALCON LEE MD, Ot F41.1 GENERALIZED ANXIETY DISORDER 10/27/2016 ALCON LEE MD Ot I10 ESSENTIAL (PRIMARY) HYPERTENSION 10/27/2016 ALCON LEE MD Ot J45.909 UNSPECIFIED ASTHMA, UNCOMPLICATED 10/27/2016 ALCON LEE MD Ot R07.9 CHEST PAIN, UNSPECIFIED 10/27/2016 ALCON LEE MD, Ot R73.03 PREDIABETES 10/27/2016 ROSA PELLETIER, ALCON Odell Ot Z68.42 BODY MASS INDEX (BMI) 45.0-49.9, [...] JH PELLETIER, JERZY Flores Ot Z79.899 OTHER LONG-TERM (CURRENT) DRUG THERAPY 12/26/2016 FRANKS, NUZHAT R CFNP Ot R10.11 RIGHT UPPER QUADRANT PAIN 02/23/2017 FRANKS, NUZHAT R CFNP Ot R10.11 RIGHT [...] Ot R10.11 RIGHT UPPER QUADRANT PAIN 03/22/2017 FRANKS, NUZHAT R CFNP Ot R10.11 RIGHT UPPER QUADRANT PAIN 03/24/2017 FRANKS, NUZHAT R CFNP Ot R10.11 RIGHT [...] I10 ESSENTIAL (PRIMARY) HYPERTENSION 04/07/2017 POWER ABEBE MD, Ot K21.9 GASTRO-ESOPHAGEAL REFLUX DISEASE WITHOUT 04/07/2017 POWER ABEBE MD Ot K57.32 DVTRCLI OF LG INT W/O PERFORATION OR ABS 04/07/2017 POWER ABEBE MD Ot Z79.899 OTHER PROBATION AGENT (CURRENT) DRUG THERAPY 04/07/2017 POWER ABEBE MD, Ot Z90.49 ACQUIRED ABSENCE OF OTHER SPECIFIED PART 04/07/2017 POWER ABEBE MD, Ot Z98.890 OTHER SPECIFIED POSTPROCEDURAL STATES 04/07/2017 POWER ABEBE MD, Ot E11.9 TYPE 2 DIABETES MELLITUS WITHOUT COMPLIC 04/07/2017 POWER ABEBE MD, Ot E66.9 OBESITY, UNSPECIFIED 04/07/2017 POWER ABEBE MD Ot F17.210 NICOTINE DEPENDENCE, CIGARETTES, UNCOMPL 04/07/2017 POWER ABEBE MD Ot I10 ESSENTIAL (PRIMARY) HYPERTENSION 04/07/2017 POWER ABEBE MD Ot K21.9 GASTRO-ESOPHAGEAL REFLUX DISEASE WITHOUT 04/07/2017 POWER ABEBE MD Ot K57.32 DVTRCLI OF LG INT W/O PERFORATION OR ABS 04/07/2017 POWER ABEBE MD, Ot Z79.899 OTHER PROBATION AGENT (CURRENT) DRUG THERAPY 04/07/2017 POWER ABEBE MD Ot Z90.49 ACQUIRED ABSENCE OF OTHER SPECIFIED PART 04/07/2017 POWER ABEBE MD Ot Z98.890 OTHER SPECIFIED POSTPROCEDURAL STATES 05/13/2017 MARCELINA BRYAN DO Ot K21.9 GASTRO-ESOPHAGEAL REFLUX DISEASE WITHOUT 05/13/2017 MARCELINA BRYAN DO Ot K57.32 DVTRCLI OF LG INT W/O PERFORATION OR ABS 05/13/2017 MARCELINA BRYAN DO Ot Z01.818 ENCOUNTER FOR OTHER PREPROCEDURAL EXAMIN 05/17/2017 MARCELINA BRYAN DO Ot E66.01 MORBID (SEVERE) OBESITY DUE TO EXCESS CA 05/17/2017 MARCELINA BRYAN DO Ot F17.210 NICOTINE DEPENDENCE, CIGARETTES, UNCOMPL 05/17/2017 MARCELINA BRYAN DO Ot I10 ESSENTIAL (PRIMARY) HYPERTENSION 05/17/2017 MARCELINA BRYAN DO Ot J45.909 UNSPECIFIED ASTHMA, UNCOMPLICATED 05/17/2017 MARCELINA BRYAN DO Ot K21.9 GASTRO-ESOPHAGEAL REFLUX DISEASE WITHOUT 05/17/2017 MARCELINA BRYAN DO Ot K26.9 DUODENAL ULCER, UNSP ACUTE OR CHRONIC 05/17/2017 MARCELINA BRYAN DO Ot K29.70 GASTRITIS, UNSPECIFIED, WITHOUT BLEEDING 05/17/2017 MARCELINA BRYNA DO Ot K29.80 DUODENITIS WITHOUT BLEEDING 05/17/2017 MARCELINA BRYAN DO Ot K57.30 DVRTCLOS OF LG INT W/O PERFORATION OR AB 05/17/2017 MARCELINA BRYAN DO Ot R73.03 PREDIABETES 05/17/2017 MARCELINA BRYAN DO Ot Z68.43 BODY MASS INDEX (BMI) 50-59.9 , ADULT 05/28/2017 MARCELINA BRYAN DO Ot E66.01 MORBID (SEVERE) OBESITY DUE TO EXCESS CA 05/28/2017 MARCELINA BRYAN DO Ot F17.210 NICOTINE DEPENDENCE, CIGARETTES, UNCOMPL 05/28/2017 MARCELINA BRYAN DO Ot I10 ESSENTIAL (PRIMARY) HYPERTENSION 05/28/2017 MARCELINA BRYAN DO Ot J45.909 UNSPECIFIED ASTHMA, UNCOMPLICATED 05/28/2017 MARCELINA BRYAN DO Ot K21.9 GASTRO-ESOPHAGEAL REFLUX DISEASE WITHOUT 05/28/2017 MARCELINA BRYAN DO Ot K26.9 DUODENAL ULCER, UNSP ACUTE OR CHRONIC 05/28/2017 MARCELINA BRYAN DO Ot K29.70 GASTRITIS, UNSPECIFIED, WITHOUT BLEEDING 05/28/2017 MARCELINA BRYAN DO Ot K29.80 DUODENITIS WITHOUT BLEEDING 05/28/2017 MARCELINA BRYAN DO Ot K57.30 DVRTCLOS 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 INT W/O PERFORATION OR AB 05/28/2017 MARCELINA BRYAN DO Ot R73.03 PREDIABETES 05/28/2017 MARCELINA BRYAN DO Ot Z68.43 BODY MASS INDEX (BMI) 50-59.9 , ADULT 07/04/2017 NUZHAT FRANKS CFAVA Ot R10.11 RIGHT UPPER QUADRANT PAIN 07/18/2017 HEATHER SMITH CHILD SUPPORT OFFICER Ot G47.10 HYPERSOMNIA, UNSPECIFIED 07/18/2017 HEATHER SMITH CHILD SUPPORT OFFICER Ot G47.50 PARASOMNIA, UNSPECIFIED 07/18/2017 HEATHER SMITH CHILD SUPPORT OFFICER Ot R53.83 OTHER FATIGUE 08/09/2017 HEATHER SMITH CHILD SUPPORT OFFICER Ot J42 UNSPECIFIED CHRONIC BRONCHITIS 08/09/2017 HEATHER SMITH CHILD SUPPORT OFFICER Ot J45.909 UNSPECIFIED ASTHMA, UNCOMPLICATED 08/09/2017 HEATHER SMITH CHILD SUPPORT OFFICER Ot R53.83 OTHER FATIGUE 08/09/2017 HEATHER SMITH CHILD SUPPORT OFFICER Ot Z72.0 TOBACCO USE 08/09/2017 NUZHAT FRANKS CFNP Ot R10.11 RIGHT UPPER QUADRANT PAIN 08/09/2017 HEATHER SMITH CHILD SUPPORT OFFICER Ot J42 UNSPECIFIED CHRONIC BRONCHITIS 08/09/2017 HEATHER SMITH CHILD SUPPORT OFFICER Ot J45.909 UNSPECIFIED ASTHMA, UNCOMPLICATED 08/09/2017 HEATHER SMITH CHILD SUPPORT OFFICER Ot R53.83 OTHER FATIGUE 08/09/2017 HEATHER SMITH CHILD SUPPORT OFFICER Ot Z72.0 TOBACCO USE 09/13/2017 POWER ABEBE MD Ot 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 09/13/2017 POWER ABEBE MD Ot F17.210 NICOTINE DEPENDENCE, CIGARETTES, UNCOMPL 09/13/2017 POWER ABEBE MD Ot F32.9 MAJOR DEPRESSIVE DISORDER, SINGLE EPISOD 09/13/2017 POWER ABEBE MD Ot I10 ESSENTIAL (PRIMARY) HYPERTENSION 09/13/2017 POWER ABEBE MD, Ot J45.909 UNSPECIFIED ASTHMA, UNCOMPLICATED 09/13/2017 POWER ABEBE MD Ot K21.9 GASTRO-ESOPHAGEAL REFLUX DISEASE WITHOUT 09/13/2017 POWER ABEBE MD Ot K57.32 DVTRCLI OF LG INT W/O PERFORATION OR ABS 09/13/2017 POWER ABEBE MD Ot K76.0 FATTY (CHANGE OF) LIVER, NOT ELSEWHERE C 09/13/2017 POWER ABEBE MD Ot R73.03 PREDIABETES 09/13/2017 POWER ABEBE MD Ot 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 09/13/2017 POWER ABEBE MD Ot F17.210 NICOTINE DEPENDENCE, CIGARETTES, UNCOMPL 09/13/2017 POWER ABEBE MD Ot F32.9 MAJOR DEPRESSIVE DISORDER, SINGLE EPISOD 09/13/2017 POWER ABEBE MD Ot I10 ESSENTIAL (PRIMARY) HYPERTENSION 09/13/2017 POWER ABEBE MD, Ot J45.909 UNSPECIFIED ASTHMA, UNCOMPLICATED 09/13/2017 POWER ABEBE MD, Ot K21.9 GASTRO-ESOPHAGEAL REFLUX DISEASE WITHOUT 09/13/2017 POWER ABEBE MD Ot K57.32 DVTRCLI OF LG INT W/O PERFORATION OR ABS 09/13/2017 POWER ABEBE MD Ot K76.0 FATTY (CHANGE OF) LIVER, NOT ELSEWHERE C 09/13/2017 POWER ABEBE MD Ot R73.03 PREDIABETES 09/22/2017 NUZHAT FRANKS Ot R10.11 RIGHT UPPER QUADRANT PAIN Procedures Code Description [place] [address] UA LONG DIP 12/18/2012 51903 MICRO ALBUMIN-IN HOUSE 12/18/2012 91834 WART DESTRUCT 1-14 (CRYO) 02/23/2013 85465 CULTURE UROGENITAL 03/06/2013 80675 SMEAR WET MOUNT SALINE/INK 03/06/2013 68406 GC/CHLAM PROBE (STATE) 03/06/2013 39998 PAP SMEAR 03/06/2013 Q0091 PAP SMEAR OBTAIN SMEAR 03/06/2013 33887 ROUTINE VENIPUNCTURE 03/07/2013 36045 CMP 03/07/2013 91733 LIPID PANEL 03/07/2013 90827 A1C (RML) 03/07/2013 94801 TSH 03/07/2013 32012 CBC 03/07/2013 77682 IMMUNOTHERAPY, ONE INJECTION 10/03/2014 J1885 TORADOL INJ 10/03/2014 J2550 PHENERGAN INJECTION UP TO 50 MG 10/03/2014 36958 ROUTINE VENIPUNCTURE 11/26/2014 37466 BMP 11/26/2014 66361 MAGNESIUM 11/26/2014 3562368 GFR CALC (RESULT ONLY) 11/26/2014 35291 NAIL REMOVAL SINGLE ( COMPLETE OR PARTIAL) 03/04/2015 Results Test Result Range Complete urinalysis with reflex to culture - 09/02/16 21:04 Urine color determination YELLOW NRG Urine clarity determination CLEAR NRG Urine pH measurement by test strip 7 5-9 Specific gravity of urine by test strip 1.010 1.016- 1.022 Urine protein assay by test strip, semi-quantitative [...] Serum or plasma sodium measurement (moles/volume) 139 mmol/L 135-145 Serum or plasma potassium measurement (moles/volume) 3.4 mmol/L 3.6-5.0 Serum or plasma chloride measurement (moles/volume) 105 mmol/L 98-107 Carbon dioxide 21 mmol/L 21-32 Serum or plasma anion gap determination (moles/volume) 13 mmol/L 5-14 Serum or plasma urea nitrogen measurement (mass/volume) 13 mg/dL 7-18 Serum or plasma creatinine measurement (mass/volume) 0.73 mg/dL 0.60-1.30 Serum or plasma urea nitrogen/creatinine mass [...] or plasma amylase measurement (enzymatic activity/volume) 31 U /L 25-125 Lipase - 09/02/16 21:40 Lipase 26 U/L 8-78 Complete blood count (CBC) with automated white blood cell (WBC) differential - 09/02/16 21:40 Blood leukocytes automated count (number/volume) 13.7 10*3/uL 4.3-11.0 Blood erythrocytes automated count (number/volume) 4.91 10*6/uL 4.35-5.85 Venous blood hemoglobin measurement (mass/volume) 15.1 [...] Automated blood platelet mean volume measurement 10.6 [foz_us] 7.4-10.4 Automated blood neutrophils/100 leukocytes 60 % [...] Urine pH measurement by test strip 6 5-9 Specific gravity of urine by test strip 1.015 1.016- 1.022 Urine protein assay by test strip, semi-quantitative [...] - 09/05/16 16:10 URINE CULTURE RESULTS <10,000/ML [facility] Complete blood count (CBC) with automated white blood cell (WBC) differential - 09/05/16 16:30 Blood leukocytes automated count (number/volume) 11.3 10*3/uL 4.3-11.0 Blood erythrocytes automated count (number/volume) 5.07 10*6/uL 4.35-5.85 Venous blood hemoglobin measurement (mass/volume) 15.7 [...] Automated blood platelet mean volume measurement 10.5 [foz_us] 7.4-10.4 Automated blood neutrophils/100 leukocytes 67 % [...] Serum or plasma sodium measurement (moles/volume) 140 mmol/L 135-145 Serum or plasma potassium measurement (moles/volume) 3.6 mmol/L 3.6-5.0 Serum or plasma chloride measurement (moles/volume) 107 mmol/L 98-107 Carbon dioxide 20 mmol/L 21-32 Serum or plasma anion gap determination (moles/volume) 13 mmol/L 5-14 Serum or plasma urea nitrogen measurement (mass/volume) 10 mg/dL 7-18 Serum or plasma creatinine measurement (mass/volume) 0.67 mg/dL 0.60-1.30 Serum or plasma urea nitrogen/creatinine mass [...] 04:25 Blood leukocytes automated count (number/volume) 9.6 10*3/uL 4.3-11.0 Blood erythrocytes automated count (number/volume) 4.25 10*6/uL 4.35-5.85 Venous blood hemoglobin measurement (mass/volume) 13.0 [...] Automated blood platelet mean volume measurement 11.0 [foz_us] 7.4-10.4 Automated blood neutrophils/100 leukocytes 53 % [...] Serum or plasma sodium measurement (moles/volume) 140 mmol/L 135-145 Serum or plasma potassium measurement (moles/volume) 3.6 mmol/L 3.6-5.0 Serum or plasma chloride measurement (moles/volume) 111 mmol/L 98-107 Carbon dioxide 20 mmol/L 21-32 Serum or plasma anion gap determination (moles/volume) 9 mmol/L 5-14 Serum or plasma urea nitrogen measurement (mass/volume) 8 mg/dL 7-18 Serum or plasma creatinine measurement (mass/volume) 0.61 mg/dL 0.60-1.30 Serum or plasma urea nitrogen/creatinine mass [...] 19:35 Blood leukocytes automated count (number/volume) 10.3 10*3/uL 4.3-11.0 Blood erythrocytes automated count (number/volume) 4.64 10*6/uL 4.35-5.85 Venous blood hemoglobin measurement (mass/volume) 14.4 [...] Automated blood platelet mean volume measurement 10.6 [foz_us] 7.4-10.4 Automated blood neutrophils/100 leukocytes 61 % [...] Serum or plasma sodium measurement (moles/volume) 139 mmol/L 135-145 Serum or plasma potassium measurement (moles/volume) 3.4 mmol/L 3.6-5.0 Serum or plasma chloride measurement (moles/volume) 109 mmol/L 98-107 Carbon dioxide 23 mmol/L 21-32 Serum or plasma anion gap determination (moles/volume) 7 mmol/L 5-14 Serum or plasma urea nitrogen measurement (mass/volume) 12 mg/dL 7-18 Serum or plasma creatinine measurement (mass/volume) 0.65 mg/dL 0.60-1.30 Serum or plasma urea nitrogen/creatinine mass [...] or plasma troponin i.cardiac measurement (mass/volume) < ng/ mL <0.30 Serum or plasma lithium measurement (moles/volume) - 10/26/16 19:35 BNP level 53.9 pg/mL <100.0 Serum or plasma amylase measurement (enzymatic activity/volume) - 10/26/16 19: 35 Serum or plasma amylase measurement (enzymatic activity/volume) 34 U /L 25-125 Lipase - 10/26/16 19:35 Lipase 29 U/L 8-78 Serum or plasma thyrotropin measurement by detection limit <=0.05 miu/l (units/ volume) - 10/26/16 19:35 Serum or plasma thyrotropin measurement by detection limit <=0.05 miu/l (units/ volume) 0.69 u[iU]/mL 0.35-4.94 Complete blood count (CBC) with automated white blood cell (WBC) differential - 10/27/16 02:25 Blood leukocytes automated count (number/volume) 9.7 10*3/uL 4.3-11.0 Blood erythrocytes automated count (number/volume) 4.49 10*6/uL 4.35-5.85 Venous blood hemoglobin measurement (mass/volume) 13.7 [...] Automated blood platelet mean volume measurement 10.1 [foz_us] 7.4-10.4 Automated blood neutrophils/100 leukocytes 48 % [...] or plasma troponin i.cardiac measurement (mass/volume) < ng/ mL <0.30 Myoglobin, serum - 10/27/16 02:25 Myoglobin, serum 31.8 ng/mL 10.0-92.0 Comprehensive metabolic panel - 10/27/16 02:25 Serum or plasma sodium measurement (moles/volume) 139 mmol/L 135-145 Serum or plasma potassium measurement (moles/volume) 3.7 mmol/L 3.6-5.0 Serum or plasma chloride measurement (moles/volume) 108 mmol/L 98-107 Carbon dioxide 24 mmol/L 21-32 Serum or plasma anion gap determination (moles/volume) 7 mmol/L 5-14 Serum or plasma urea nitrogen measurement (mass/volume) 12 mg/dL 7-18 Serum or plasma creatinine measurement (mass/volume) 0.65 mg/dL 0.60-1.30 Serum or plasma urea nitrogen/creatinine mass [...] Serum or plasma triglyceride measurement (mass/volume) 80 mg/dL <150 Serum or plasma cholesterol measurement (mass/volume) 136 mg/dL < 200 Serum or plasma cholesterol in HDL measurement (mass/volume) 32 mg/ dL 40-60 Cholesterol in LDL [mass/volume] in serum or plasma by direct assay 97 mg/dL 1-129 Serum or plasma cholesterol in VLDL measurement (mass/volume) 16 mg/ dL 5-40 Serum or plasma creatine kinase measurement (enzymatic activity/volume) - 10/27 08:49 Serum or plasma creatine kinase measurement (enzymatic activity/volume) 106 U/L 29-168 Serum or plasma troponin i.cardiac measurement (mass/volume) - 10/27/16 08:49 Serum or plasma troponin i.cardiac measurement (mass/volume) < ng/ mL <0.30 Myoglobin, serum - 10/27/16 08:49 Myoglobin, serum 38.4 ng/mL 10.0-92.0 Complete blood count (CBC) with automated white blood cell (WBC) differential - 12/26/16 01:40 Blood leukocytes automated count (number/volume) 10.9 10*3/uL 4.3-11.0 Blood erythrocytes automated count (number/volume) 4.71 10*6/uL 4.35-5.85 Venous blood hemoglobin measurement (mass/volume) 14.3 [...] Automated blood platelet mean volume measurement 10.1 [foz_us] 7.4-10.4 Automated blood neutrophils/100 leukocytes 54 % [...] Serum or plasma sodium measurement (moles/volume) 138 mmol/L 135-145 Serum or plasma potassium measurement (moles/volume) 3.8 mmol/L 3.6-5.0 Serum or plasma chloride measurement (moles/volume) 107 mmol/L 98-107 Carbon dioxide 22 mmol/L 21-32 Serum or plasma anion gap determination (moles/volume) 9 mmol/L 5-14 Serum or plasma urea nitrogen measurement (mass/volume) 15 mg/dL 7-18 Serum or plasma creatinine measurement (mass/volume) 0.70 mg/dL 0.60-1.30 Serum or plasma urea nitrogen/creatinine mass [...] plasma C reactive protein measurement (mass/volume) 1.36 mg /dL 0.00-0.50 Serum or plasma lithium measurement (moles/volume) - 12/26/16 01:40 BNP level 13.4 pg/mL <100.0 Complete blood count (CBC) with automated white blood cell (WBC) differential - 03/17/17 10:05 Blood leukocytes automated count (number/volume) 10.4 10*3/uL 4.3-11.0 Blood erythrocytes automated count (number/volume) 5.05 10*6/uL 4.35-5.85 Venous blood hemoglobin measurement (mass/volume) 15.3 [...] Automated blood platelet mean volume measurement 10.5 [foz_us] 7.4-10.4 Automated blood neutrophils/100 leukocytes 67 % [...] Urine pH measurement by test strip 6 5-9 Specific gravity of urine by test strip 1.015 1.016- 1.022 Urine protein assay by test strip, semi-quantitative [...] 15:15 Blood leukocytes automated count (number/volume) 16.2 10*3/uL 4.3-11.0 Blood erythrocytes automated count (number/volume) 5.23 10*6/uL 4.35-5.85 Venous blood hemoglobin measurement (mass/volume) 15.8 [...] Automated blood platelet mean volume measurement 10.4 [foz_us] 7.4-10.4 Automated blood neutrophils/100 leukocytes 71 % [...] NRG Blood erythrocyte morphology finding identification [facility] Comprehensive metabolic panel - 04/06/17 15:15 Serum or plasma sodium measurement (moles/volume) 140 mmol/L 135-145 Serum or plasma potassium measurement (moles/volume) 4.0 mmol/L 3.6-5.0 Serum or plasma chloride measurement (moles/volume) 106 mmol/L 98-107 Carbon dioxide 27 mmol/L 21-32 Serum or plasma anion gap determination (moles/volume) 7 mmol/L 5-14 Serum or plasma urea nitrogen measurement (mass/volume) 10 mg/dL 7-18 Serum or plasma creatinine measurement (mass/volume) 0.73 mg/dL 0.60-1.30 Serum or plasma urea nitrogen/creatinine mass [...] or plasma amylase measurement (enzymatic activity/volume) 33 U /L 25-125 Lipase - 04/06/17 15:15 Lipase 16 U/L 8-78 Complete blood count (CBC) with automated white blood cell (WBC) differential - 04/07/17 05:48 Blood leukocytes automated count (number/volume) 13.4 10*3/uL 4.3-11.0 Blood erythrocytes automated count (number/volume) 4.50 10*6/uL 4.35-5.85 Venous blood hemoglobin measurement (mass/volume) 13.6 [...] Automated blood platelet mean volume measurement 10.4 [foz_us] 7.4-10.4 Automated blood neutrophils/100 leukocytes 72 % [...] Serum or plasma sodium measurement (moles/volume) 136 mmol/L 135-145 Serum or plasma potassium measurement (moles/volume) 3.7 mmol/L 3.6-5.0 Serum or plasma chloride measurement (moles/volume) 105 mmol/L 98-107 Carbon dioxide 23 mmol/L 21-32 Serum or plasma anion gap determination (moles/volume) 8 mmol/L 5-14 Serum or plasma urea nitrogen measurement (mass/volume) 9 mg/dL 7-18 Serum or plasma creatinine measurement (mass/volume) 0.67 mg/dL 0.60-1.30 Serum or plasma urea nitrogen/creatinine mass [...] chorionic gonadotropin (hCG) measurement NEGATIVE NEGATIVE Complete blood count (CBC) with automated white blood cell (WBC) differential - 09/12/17 12:42 Blood leukocytes automated count (number/volume) 12.0 10*3/uL 4.3-11.0 Blood erythrocytes automated count (number/volume) 4.83 10*6/uL 4.35-5.85 Venous blood hemoglobin measurement (mass/volume) 14.6 g/dL 11.5-16.0 Blood hematocrit (volume fraction) 44 % 35-52 Automated erythrocyte mean corpuscular volume 92 [foz_us] 80-99 Automated erythrocyte mean corpuscular hemoglobin (mass per erythrocyte) 30 pg 25-34 Automated erythrocyte mean corpuscular hemoglobin concentration measurement ( mass/volume) 33 g/dL 32-36 Automated erythrocyte distribution width ratio 13.3 % 10.0-14.5 Automated blood platelet count (count/volume) 299 10*3/uL 130-400 Automated blood platelet mean volume measurement 11.0 [foz_us] 7.4-10.4 Automated blood neutrophils/100 leukocytes 73 % 42-75 Automated blood lymphocytes/100 leukocytes 19 % 12-44 Blood monocytes/100 leukocytes 5 % 0-12 Automated blood eosinophils/100 leukocytes 3 % 0-10 Automated blood basophils/100 leukocytes 0 % 0-10 Blood neutrophils automated count (number/volume) 8.8 10*3 1.8-7.8 Blood lymphocytes automated count (number/volume) 2.2 10*3 1.0-4.0 Blood monocytes automated count (number/volume) 0.6 10*3 0.0-1.0 Automated eosinophil count 0.3 10*3/uL 0.0-0.3 Automated blood basophil count (count/volume) 0.0 10*3/uL 0.0-0.1 Comprehensive metabolic panel - 09/12/17 12:42 Serum or plasma sodium measurement (moles/volume) 136 mmol/L 135-145 Serum or plasma potassium measurement (moles/volume) 3.8 mmol/L 3.6-5.0 Serum or plasma chloride measurement (moles/volume) 103 mmol/L 98-107 Carbon dioxide 26 mmol/L 21-32 Serum or plasma anion gap determination (moles/volume) 7 mmol/L 5-14 Serum or plasma urea nitrogen measurement (mass/volume) 8 mg/dL 7-18 Serum or plasma creatinine measurement (mass/volume) 0.68 mg/dL 0.60-1.30 Serum or plasma urea nitrogen/creatinine mass ratio 12 NRG Serum or plasma creatinine measurement with calculation of estimated glomerular filtration rate > NRG Serum or plasma glucose measurement (mass/volume) 171 mg/dL 70-105 Serum or plasma calcium measurement (mass/volume) 8.7 mg/dL 8.5-10.1 Serum or plasma total bilirubin measurement (mass/volume) 0.2 mg/dL 0.1-1.0 Serum or plasma alkaline phosphatase measurement (enzymatic activity/volume) 79 U/L 40-136 Serum or plasma aspartate aminotransferase measurement (enzymatic activity/ volume) 20 U/L 5-34 Serum or plasma alanine aminotransferase measurement (enzymatic activity/volume ) 27 U/L 0-55 Serum or plasma protein measurement (mass/volume) 6.3 g/dL 6.4-8.2 Serum or plasma albumin measurement (mass/volume) 3.6 g/dL 3.2-4.5 Serum or plasma C reactive protein measurement (mass/volume) - 09/12/17 12:42 Serum or plasma C reactive protein measurement (mass/volume) 2.30 mg /dL 0.00-0.50 Complete urinalysis with reflex to culture - 09/12/17 13:16 Urine color determination YELLOW NRG Urine clarity determination CLEAR NRG Urine pH measurement by test strip 8 5-9 Specific gravity of urine by test strip 1.010 1.016- 1.022 Urine protein assay by test strip, semi-quantitative NEGATIVE NEGATIVE Urine glucose detection by automated test strip NEGATIVE NEGATIVE Erythrocytes detection in urine sediment by light microscopy NEGATIVE NEGATIVE Urine ketones detection by automated test strip NEGATIVE NEGATIVE Urine nitrite detection by test strip NEGATIVE NEGATIVE Urine total bilirubin detection by test strip NEGATIVE NEGATIVE Urine urobilinogen measurement by automated test strip (mass/volume) NORMAL NORMAL Urine leukocyte esterase detection by dipstick 2+ NEGATIVE Automated urine sediment erythrocyte count by microscopy (number/high power field) RARE NRG Automated urine sediment leukocyte count by [...] urinalysis with reflex to culture NO NRG Blood lactic acid measurement (moles/volume) - 09/12/17 14:45 Blood lactic acid measurement (moles/volume) 1.00 mmol/L 0.50-2.00 Bacterial blood culture - 09/12/17 14:45 QUANTITY OF GROWTH Isolated NRG Bacterial blood culture [id number] NRG Bacterial blood culture - 09/12/17 15:30 Bacterial blood culture NG NRG Complete blood count (CBC) with automated white blood cell (WBC) differential - 09/13/17 05:32 Blood leukocytes automated count (number/volume) 10.1 10*3/uL 4.3-11.0 Blood erythrocytes automated count (number/volume) 4.22 10*6/uL 4.35-5.85 Venous blood hemoglobin measurement (mass/volume) 12.7 g/dL 11.5-16.0 Blood hematocrit (volume fraction) 40 % 35-52 Automated erythrocyte mean corpuscular volume 95 [foz_us] 80-99 Automated erythrocyte mean corpuscular hemoglobin (mass per erythrocyte) 30 pg 25-34 Automated erythrocyte mean corpuscular hemoglobin concentration measurement ( mass/volume) 32 g/dL 32-36 Automated erythrocyte distribution width ratio 13.5 % 10.0-14.5 Automated blood platelet count (count/volume) 263 10*3/uL 130-400 Automated blood platelet mean volume measurement 10.9 [foz_us] 7.4-10.4 Automated blood neutrophils/100 leukocytes 61 % 42-75 Automated blood lymphocytes/100 leukocytes 26 % 12-44 Blood monocytes/100 leukocytes 8 % 0-12 Automated blood eosinophils/100 leukocytes 5 % 0-10 Automated blood basophils/100 leukocytes 0 % 0-10 Blood neutrophils automated count (number/volume) 6.1 10*3 1.8-7.8 Blood lymphocytes automated count (number/volume) 2.6 10*3 1.0-4.0 Blood monocytes automated count (number/volume) 0.8 10*3 0.0-1.0 Automated eosinophil count 0.5 10*3/uL 0.0-0.3 Automated blood basophil count (count/volume) 0.0 10*3/uL 0.0-0.1 Comprehensive metabolic panel - 09/13/17 05:32 Serum or plasma sodium measurement (moles/volume) 139 mmol/L 135-145 Serum or plasma potassium measurement (moles/volume) 4.1 mmol/L 3.6-5.0 Serum or plasma chloride measurement (moles/volume) 107 mmol/L 98-107 Carbon dioxide 24 mmol/L 21-32 Serum or plasma anion gap determination (moles/volume) 8 mmol/L 5-14 Serum or plasma urea nitrogen measurement (mass/volume) 9 mg/dL 7-18 Serum or plasma creatinine measurement (mass/volume) 0.69 mg/dL 0.60-1.30 Serum or plasma urea nitrogen/creatinine mass ratio 13 NRG Serum or plasma creatinine measurement with calculation of estimated glomerular filtration rate > NRG Serum or plasma glucose measurement (mass/volume) 92 mg/dL 70-105 Serum or plasma calcium measurement (mass/volume) 7.5 mg/dL 8.5-10.1 Serum or plasma total bilirubin measurement (mass/volume) 0.3 mg/dL 0.1-1.0 Serum or plasma alkaline phosphatase measurement (enzymatic activity/volume) 70 U/L 40-136 Serum or plasma aspartate aminotransferase measurement (enzymatic activity/ volume) 43 U/L 5-34 Serum or plasma alanine aminotransferase measurement (enzymatic activity/volume ) 50 U/L 0-55 Serum or plasma protein measurement (mass/volume) 5.5 g/dL 6.4-8.2 Serum or plasma albumin measurement (mass/volume) 3.1 g/dL 3.2-4.5 Encounters ACCT No. Visit Date/Time Discharge Status Pt. Type Provider Facility Loc./Unit Complaint [id number] 03/04/2015 13:00:00 03/04/2015 23:59:59 CLS Outpatient TYLER GAN MD [id number] 12/03/2014 08:41:00 12/03/2014 23:59:59 CLS Outpatient CORBY WALTERS DO [id number] 10/03/2014 14:53:00 10/03/2014 23:59:59 CLS Outpatient CORBY WALTERS DO [id number] 08/05/2014 00:00:00 08/05/2014 23:59:59 CLS Outpatient KATELYN AYALA DDS [id number] 06/25/2014 16:28:00 06/25/2014 23:59:59 CLS Outpatient CORBY WALTERS DO [id number] 01/24/2014 15:30:00 01/24/2014 23:59:59 CLS Outpatient NUZHAT FRANKS APRN [id number] 03/07/2013 08:40:00 03/07/2013 23:59:59 CLS Outpatient FAUZIA VALLADARES MD [id number] 03/06/2013 13:23:00 03/06/2013 23:59:59 CLS Outpatient [id number] 02/23/2013 08:44:00 02/23/2013 23:59:59 CLS Outpatient [id number] 12/25/2012 14:09:00 12/25/2012 23:59:59 CLS Outpatient NUZHAT FRANKS APRN [id number] 03/19/2013 14:36:00 Document Registration [id number] 09/22/2017 10:14:00 09/22/2017 23:59:59 CLS Outpatient SOTERO VELASCO [employer] 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 [facility] RAD POST-TRAUMA,SWOLLEN; ERYTHEMATOUS [id number] 09/12/2017 14:35:00 09/13/2017 17:48:00 DIS Inpatient POWER ABEBE MD [facility] 4TH SEPSIS,DIVERTICULITIS, FAILED OUTPT ABXS [id number] 07/27/2017 16:23:00 07/27/2017 23:59:59 CLS Outpatient HEATHER SMITH APRN [facility] RT J30.2 SEASONAL ALLERGIES [id number] 07/18/2017 16:27:00 07/18/2017 16:40:00 DIS Outpatient HEATHER SMITH APRN [facility] SLEEP G47.10 [id number] 05/17/2017 07:33:00 05/17/2017 10:05:00 DIS Outpatient MARCELINA BRYAN DO [facility] ENDO REFLUX; SCREENING [id number] 05/13/2017 05:40:00 05/13/2017 12:27:00 DIS Outpatient MARCELINA BRYAN DO [facility] PREOP REFLUX, SCREENING [id number] 04/06/2017 16:00:00 04/07/2017 14:30:00 DIS Inpatient POWER ABEBE MD [facility] 4TH DIVERTICULITIS [id number] 03/24/2017 08:00:00 03/24/2017 13:30:00 DIS Outpatient MARCELINA BRYAN DO [facility] SDC BILIARY DYSKINESIA [id number] 03/17/2017 09:37:00 03/17/2017 11:06:00 DIS Outpatient MARCELINA BRYAN DO [facility] PREOP BILIARY DYSKENSIA [id number] 02/28/2017 12:06:00 02/28/2017 23:59:59 CLS Outpatient FRANKS, NUZHAT R CFAVA [facility] CARD RUQ ABD PAIN [id number] 02/23/2017 13:12:00 02/23/2017 23:59:59 CLS Outpatient NUZHAT FRANKS CFNP [facility] RAD RUQ PAIN [id number] 12/26/2016 00:20:00 12/26/2016 02:36:00 DIS Emergency JERZY PEÑALOZA MD [facility] ER R SIDE AND BACK PAIN [id number] 10/26/2016 20:55:00 10/27/2016 10:45:00 DIS Inpatient ROSA PELLETIER, ALCON Odell [facility] 4TH CHEST PAIN,HTN [id number] 09/05/2016 20:03:00 09/06/2016 12:52:00 DIS Inpatient ALCON LEE MD [facility] 4TH ACUTE DIVERTICULITIS, INTRACTABLE LLQ [id number] 09/02/2016 20:04:00 09/03/2016 00:16:00 DIS Emergency PRINCESS SEALS DO [facility] ER ABD PAIN [id number] 05/05/2016 10:40:00 05/05/2016 23:59:59 CLS Outpatient NUZHAT FRANKS Freddie CFAVA [facility] RAD RUQ ABD PAIN [id number] 08/29/2015 15:25:00 08/29/2015 17:15:00 DIS Emergency CYDNEY BEYER MD [facility] ER SOA,CP [id number] 05/09/2015 12:00:00 05/09/2015 13:55:00 DIS Emergency JOSUE CUNNINGHAM [facility] ER R FOOT SWELLING/ SPIDER BITE [id number] 11/16/2014 23:42:00 11/17/2014 01:19:00 DIS Emergency VA GLEASON MD [facility] ER FALL;BACK PAIN [id number] 01/27/2018 10:45:00 ACT Emergency JUHI PELLETIER, BARON Chan [facility] ER CP LAST NIGHT [id number] 05/11/2012 07:49:00 Document Registration [id number] 02/27/2012 12:12:00 Document Registration
[2018-01-27 11:28] LABS: HEMOGLOBIN 15.1 G/DL (11.5-16.0); MEAN PLATELET VOLUME 10.4 FL (7.4-10.4); RED BLOOD COUNT 4.95 10^6/uL (4.35-5.85); RED CELL DISTRIBUTION WIDTH 13.5 % (10.0-14.5); WHITE BLOOD COUNT 10.5 10^3/uL (4.3-11.0)
[2018-01-27] MEDS ORDERED: NITROGLYCERIN 0.4 MG SL TABS BTL 25'S SL PRN (11:45)
[2018-01-27] MEDS ORDERED: NS IV 1000 ML 1,000 ML IV SCH (11:45)
--- NOTE | 2018-01-27 11:58 | ED Chest Pain ---
General Chief Complaint: Chest Pain Stated Complaint: CP LAST NIGHT Nursing Triage Note: last night pt states had chest pain sharp x10 min. radiation down left arm. Nursing Sepsis Screen: No Definite Risk Source: patient Exam Limitations: no limitations History of Present Illness Date Seen by Provider: Jan 27, 2018 Time Seen by Provider: 11:54 Initial Comments History 7-year-old white female presents with a self limited episode of chest pain that occurred last night lasting approximately 10 minutes. She described the chest pain is sharp in nature and severe in quality. The patient described pressure-type chest pain radiated into her left arm and neck with associated diaphoresis and nausea. The patient's past medical history includes hypertension moderately well controlled and prediabetes. The patient is a smoker. After arrival in emergency department patient complained of a quotation rouse muscle spasm" in her left upper abdomen. She described it as severe in quality , nonradiating, and without other associated symptoms. Allergies and Home Medications Allergies Coded Allergies: tramadol HCl (Verified Allergy, Mild, HIVES, Pt has received Lortab w/o issue, 09/12/17) Home Medications Atenolol 50 Mg Tablet, 75 MG PO HS, (Reported) TAKES 1 & 1/2 (50 MG) TABLETS Cetirizine HCl 10 Mg Tablet, 10 MG PO HS, (Reported) LAST FILLED 08/08/17 #30 Ciprofloxacin HCl 500 Mg Tablet, 500 MG PO Q12H, (Reported) FILLED 09/06/17 #14 FOR A 7 DAY THERAPY Clonazepam 1 Mg Tablet, 0.5-1 MG PO BID PRN for ANXIETY, (Reported) TAKES 1/2-1 (1 MG) TABLET Fluticasone Propionate 16 Gm [place].susp, 1 SPRAY NSEACH DAILY, (Reported) LAST FILLED 06/28/17 #16GM Hydrochlorothiazide 25 Mg Tablet, 25 MG PO DAILY, (Reported) Hydrocodone Bit/Acetaminophen 1 Each Tablet, 1 TAB PO TID PRN for PAIN-MODERATE, (Reported) Metronidazole 500 Mg Tablet, 500 MG PO Q12H, (Reported) FILLED 09/06/17 #14 FOR A 7 DAY THERAPY Montelukast Sodium 10 Mg Tablet, 10 MG PO HS, (Reported) LAST FILLED 08/08/17 #30 Sucralfate 1 Gm Tablet, 1 GM PO ACHS PRN for STOMACH UPSET, (Reported) Patient Home Medication List Home Medication List Reviewed: Yes Review of Systems Constitutional: No chills, diaphoresis, No fever, No malaise EENTM: No Blurred Vision Respiratory: Denies Cough, Denies Shortness of Air Cardiovascular: Chest Pain, Denies Palpitations, Denies Syncope Gastrointestinal: Denies Diarrhea, Nausea, Denies Vomiting Genitourinary: No Symptoms Reported Musculoskeletal: No back pain Skin: No rash Psychiatric/Neurological: No Symptoms Reported Endocrine: No Symptoms Reported Hematologic/Lymphatic: No Symptoms Reported Past Rhdvpze-Wzjxdp-Sgudym Hx Patient Social History Alcohol Beverage of Choice: Beer Type Used: Cigars Recent Foreign Travel: No Contact w/Someone Who Travel: No Recent Infectious Disease Expo: No Recent Hopitalizations: No Physical Abuse: No Sexual Abuse: No Mistreated: No Fear: No Immunizations Up To Date Tetanus Booster (TDap): More than 5yrs PED Vaccines UTD: Yes Seasonal Allergies Seasonal Allergies: Yes (MILD) Surgeries History of Surgeries: Yes (WART REMOVALS; "CYST" REMOVALS FROM SKIN OF VARIOUS PARTS OF BODY) Surgeries: Gallbladder Respiratory History of Respiratory Disorde: Yes Respiratory Disorders: Asthma Currently Using CPAP: No Currently Using BIPAP: No Cardiovascular History of Cardiac Disorders: Yes (SWELLING AT TIMES) Cardiac Disorders: Chronic Edema/Swelling, Hypertension Neurological History of Neurological Disord: Yes Neurological Disorders: Headaches /Migraines Reproductive System Hx Reproductive Disorders: Yes Sexually Transmitted Disease: No HIV/AIDS: No Female Reproductive Disorders: Menstrual Problems, Polycystic Ovarian Dis Genitourinary History of Genitourinary Disor: No Gastrointestinal History of Gastrointestinal Di: Yes (SANTORO DISEASE-FATTY LIVER) Gastrointestinal Disorders: Colitis, Gastroesophageal Reflux, Diverticulosis, Ulcer Musculoskeletal History of Musculoskeletal Dis: Yes (CHRONIC BILATERAL KNEE PAIN, chostrochrondritis) Musculoskeletal Disorders: Chronic Back Pain Endocrine History of Endocrine Disorders: Yes ("PRE" DIABETIC--DOES NOT CHECK BLOOD SUGAR ; OBESITY) Endocrine Disorders: Diabetes, Non-Insulin dep HEENT Loss of Vision: Bilateral Hearing Impairment: Denies Cancer History of Cancer: No Did You Recieve Any Treatments: No Psychosocial History of Psychiatric Problem: Yes Behavioral Health Disorders: Sleep Difficulties, Depression Suicide Risk Score: 1 Integumentary History of Skin or Integumenta: No Blood Transfusions History of Blood Disorders: No Adverse Reaction to a Blood Tr: No Reviewed Nursing Assessment Reviewed/Agree w Nursing PMH: Yes Family Medical History Significant Family History: No Pertinent Family Hx Family Medial History: Alcoholism 19 FATHER 19 MOTHER Arthritis 19 MOTHER Asthma 19 MOTHER Cancer of mouth 19 FATHER Cataracts 19 MOTHER Dementia 19 MOTHER Diabetes mellitus Drug abuse 19 FATHER 19 MOTHER Fibrocystic disease of breast 19 MOTHER Headache disorder 19 MOTHER G8 SISTER Hypertension 19 MOTHER Respiratory disorder 19 FATHER 19 MOTHER Physical Exam Vital Signs Vital Signs - First Documented 01/27/18 11:16 Temp 97.9 Pulse 93 Resp 20 B/P (MAP) 151/92 (111) Pulse Ox 96 O2 Delivery Room Air Capillary Refill : NONE General Appearance: WD/WN, Mild Distress HEENT: Normal ENT Inspection Neck: Normal Inspection Respiratory: Normal Breath Sounds Cardiovascular: Regular Rate, Rhythm, No Murmur, Normal Peripheral Pulses Gastrointestinal: Normal Bowel Sounds, No Organomegaly, No Pulsatile Mass Extremity: Normal Capillary Refill, Normal Inspection, Normal Range of Motion Neurologic/Psychiatric: Alert, Oriented x3, No Motor/Sensory Deficits, Normal Mood/Affect Skin: Normal Color, Warm/Dry, No Rash Progress/Results/Core Measures Results/Orders Lab Results Laboratory Tests Test 01/27/18 11:15 Range/Units White Blood Count 10.5 4.3-11.0 10^3/uL Red Blood Count 4.95 4.35-5.85 10^6/uL Hemoglobin 15.1 11.5-16.0 G/DL Hematocrit 45 35-52 % Mean Corpuscular Volume 90 80-99 FL Mean Corpuscular Hemoglobin 31 25-34 PG Mean Corpuscular Hemoglobin Concent 34 32-36 G/DL Red Cell Distribution Width 13.5 10.0-14.5 % Platelet Count 274 130-400 10^3/uL Mean Platelet Volume 10.4 7.4-10.4 FL Sodium Level 139 135-145 MMOL/L Potassium Level 3.7 3.6-5.0 MMOL/L Chloride Level 105 98-107 MMOL/L Carbon Dioxide Level 23 21-32 MMOL/L Anion Gap 11 5-14 MMOL/L Blood Urea Nitrogen 12 7-18 MG/DL Creatinine 0.68 0.60-1.30 MG/DL Estimat Glomerular Filtration Rate > 60 BUN/Creatinine Ratio 18 Glucose Level 130 H 70-105 MG/DL Calcium Level 8.3 L 8.5-10.1 MG/DL Total Bilirubin 0.4 0.1-1.0 MG/DL Aspartate Amino Transf (AST/SGOT) 16 5-34 U/L Alanine Aminotransferase (ALT/SGPT) 26 0-55 U/L Alkaline Phosphatase 83 40-136 U/L Creatine Kinase MB 1.0 <6.6 NG/ML Troponin I < 0.30 <0.30 NG/ML Total Protein 6.0 L 6.4-8.2 GM/DL Albumin 3.6 3.2-4.5 GM/DL Lipase 25 8-78 U/L My Orders Orders - BARON REYNAGA MD Chest 1 View, Ap/Pa Only (01/27/18 11:14) Cbc No Diff (01/27/18 11:14) Comprehensive Metabolic Panel (01/27/18 11:14) Troponin I (01/27/18 11:14) Creatine Kinase Mb (01/27/18 11:14) Ekg Tracing (01/27/18 11:14) Saline Lock/Iv-Start (01/27/18 11:14) Lipase (01/27/18 11:43) Ns Iv 1000 Ml (Sodium Chloride 0.9%) (01/27/18 11:45) Nitroglycerin 0.4 Mg Btl 25's (Nitrostat (01/27/18 11:45) Medications Given in ED Current Medications Medications Dose Ordered Sig/Nemo Route Start Time Stop Time Status Last Admin Dose Admin Nitroglycerin 1 TAB Q 5 MIN X 3 NEEDED PRN SL 01/27/18 11:45 01/27/18 11:54 0.4 MG Vital Signs/I&O Vital Sign - Last 12Hours 01/27/18 01/27/18 11:16 11:28 Temp 97.9 Pulse 93 Resp 20 B/P (MAP) 151/92 (111) Pulse Ox 96 O2 Delivery Room Air Room Air Blood Pressure Mean: 111 Progress Note : Time: 12:44 Progress Note The patient's EKG and troponin were normal. The patient's complete metabolic panel, CBC and amylase were similarly benign. Given the patient's history and her episode of acute left upper quadrant pain emergency Department the patient was given nitroglycerin. The patient's pain abated but it was unclear whether the nitroglycerin effect of the pain or not. I recommended most strongly the patient should consider staying for further monitoring and evaluation, which she declined. Although I asked the patient to stay she refused and signed out AGAINST MEDICAL ADVICE. She understands she can return to the emergency department at any time for further evaluation. The patient was given the residual bilateral nitroglycerin was refused emergency department. I asked her to employ nitroglycerin she had any further chest or abdominal pain. I asked that she return to the emergency department she required nitroglycerin over one have further evaluation. Departure Impression Impression: Primary Impression: Atypical chest pain Disposition: Condition: Improved Departure-Patient Inst. Decision time for Depature: 12:47 Referrals: CORBY WALTERS DO (PCP) Primary Care Physician NUZHAT FRANKS (Family) Primary Care Physician Patient Instructions: Chest Pain (DC) Add. Discharge Instructions: Take nitroglycerin if the chest pain recurs and return to the emergency Department immediately. Follow-up with your physician at [facility] on Tuesday return with any problems or questions in the interim. All discharge instructions reviewed with patient and/or family. Voiced understanding. BARON REYNAGA MD Jan 27, 2018 11:58
[2018-01-27 12:02] LABS: ALANINE AMINOTRANSFERASE 26 U/L (0-55); ALBUMIN 3.6 GM/DL (3.2-4.5); ALKALINE PHOSPHATASE 83 U/L (40-136); BILIRUBIN,TOTAL 0.4 MG/DL (0.1-1.0); BUN/CREATININE RATIO 18; CALCIUM 8.3 MG/DL (8.5-10.1); CARBON DIOXIDE 23 MMOL/L (21-32); CHLORIDE 105 MMOL/L (98-107); CREATININE SERUM 0.68 MG/DL (0.60-1.30); GFR ESTIMATED > 60; GLUCOSE 130 MG/DL (70-105); POTASSIUM 3.7 MMOL/L (3.6-5.0); SODIUM 139 MMOL/L (135-145)
[2018-01-27 12:45] VITALS: BP 151/92
--- NOTE | 2018-01-27 12:58 | Diagnostic Imaging Report ---
INDICATION: Chest pain. TIME OF EXAMINATION: 11:32 AM. COMPARISON: 04/06/2017. FINDINGS: The heart size is stable. Linear scarring in the left upper lobe is stable. No infiltrate is identified. No effusion or pneumothorax is seen. IMPRESSION: No acute cardiopulmonary process is detected. Dictated by: Dictated on workstation # [id number]
== END 2018-01-27 12:48 | disposition left against medical advice (07) ==
LOC: EDUNIT# 10:43 → ER 10:45
DX: R07.89 Other chest pain (principal); F32.9 Major depressive disorder, single episode, unspecified; E11.9 Type 2 diabetes mellitus without complications; K21.9 Gastro-esophageal reflux disease without esophagitis; G43.909 Migraine, unspecified, not intractable, without status migrainosus; J45.909 Unspecified asthma, uncomplicated; I10 Essential (primary) hypertension; Z87.42 Personal history of other diseases of the female genital tract; Z88.5 Allergy status to narcotic agent
CPT/HCPCS: 36415; 71045; 80053; 82553; 83690; 84484; 85027; 96360

== ENCOUNTER 2018-01-30 20:23 | Emergency (ER) | payer SELFPAY ==
[~2018-01-30] VITALS: Ht 162.6 cm; Wt 139.3 kg
--- OUTSIDE RECORDS SUMMARY | 2018-01-30 20:34 | XMS REPORT | Continuity of Care Document ---
Author Author [facility] Address Unknown Phone Unavailable Allergies Active Description Code Type Severity Reaction Onset Reported/Identified Relationship to Patient Clinical Status Yes Ultram Drug Allergy 10/08/2009 Yes Ultram Drug Allergy N/A N/A 10/08/2009 Yes lisinopril 10 mg tablet Drug Allergy N/A N/A 03/19/2013 Yes tramadol HCl [id number] Drug Allergy Mild HIVES 03/17/2017 Yes tramadol HCl [id number] Drug Allergy Mild HIVES, Pt has r [...] MD 079.99 UNSPECIFIED VIRAL INFECTION 04/03/2009 TYLER AGN MD 462 ACUTE PHARYNGITIS 10/08/2009 NUZHAT FRANKS [...] SPIDER BITE 05/09/2015 JOSUE CUNNINGHAM Ot V06.1 [id number], COMBINED [ 05/09/2015 JOSUE CUNNINGHAM Ot V15.81 [...] 09/03/2016 ARNEL DO, PRINCESS K Ot Z79.84 RETIREMENT (CURRENT) USE OF ORAL HYPOGLYC 09/03/2016 ARNEL DO, PRINCESS K Ot Z79.899 OTHER REFERRAL MANAGEMENT LIAISON (CURRENT) DRUG THERAPY 09/03/2016 ARNEL DO, PRINCESS [...] ARNEL DO, PRINCESS K Ot Z79.899 OTHER RETIREMENT (CURRENT) DRUG THERAPY 09/06/2016 ALCON LEE MD [...] JH PELLETIER, JERZY Flores Ot Z79.899 OTHER RETIREMENT (CURRENT) DRUG THERAPY 12/26/2016 FRANKS, NUZHAT R [...] 04/07/2017 POWER ABEBE MD Ot Z79.899 OTHER REFERRAL MANAGEMENT LIAISON (CURRENT) DRUG THERAPY 04/07/2017 POWER ABEBE MD, [...] 04/07/2017 POWER ABEBE MD, Ot Z79.899 OTHER REFERRAL MANAGEMENT LIAISON (CURRENT) DRUG THERAPY 04/07/2017 POWER ABEBE MD [...] K29.70 GASTRITIS, UNSPECIFIED, WITHOUT BLEEDING 05/17/2017 MARCELINA BRYAN DO Ot K29.80 DUODENITIS WITHOUT BLEEDING 05/17/2017 [...] RIGHT UPPER QUADRANT PAIN 07/18/2017 HEATHER SMITH LOOM WINDER TENDER Ot G47.10 HYPERSOMNIA, UNSPECIFIED 07/18/2017 HEATHER SMITH LOOM WINDER TENDER Ot G47.50 PARASOMNIA, UNSPECIFIED 07/18/2017 HEATHER SMITH LOOM WINDER TENDER Ot R53.83 OTHER FATIGUE 08/09/2017 HEATHER SMITH LOOM WINDER TENDER Ot J42 UNSPECIFIED CHRONIC BRONCHITIS 08/09/2017 HEATHER SMITH LOOM WINDER TENDER Ot J45.909 UNSPECIFIED ASTHMA, UNCOMPLICATED 08/09/2017 HEATHER SMITH LOOM WINDER TENDER Ot R53.83 OTHER FATIGUE 08/09/2017 HEATHER SMITH LOOM WINDER TENDER Ot Z72.0 TOBACCO USE 08/09/2017 NUZHAT FRANKS CFNP Ot R10.11 RIGHT UPPER QUADRANT PAIN 08/09/2017 HEATHER SMITH LOOM WINDER TENDER Ot J42 UNSPECIFIED CHRONIC BRONCHITIS 08/09/2017 HEATHER SMITH LOOM WINDER TENDER Ot J45.909 UNSPECIFIED ASTHMA, UNCOMPLICATED 08/09/2017 HEATHER SMITH LOOM WINDER TENDER Ot R53.83 OTHER FATIGUE 08/09/2017 HEATHER SMITH LOOM WINDER TENDER Ot Z72.0 TOBACCO USE 09/13/2017 POWER ABEBE MD Ot 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 09/13/2017 POWER ABEBE MD Ot F17.210 NICOTINE DEPENDENCE, CIGARETTES, UNCOMPL 09/13/2017 POWER ABEBE MD Ot F32.9 MAJOR DEPRESSIVE DISORDER, SINGLE EPISOD 09/13/2017 POWER ABEBE MD Ot I10 ESSENTIAL (PRIMARY) HYPERTENSION 09/13/2017 POWER ABEBE MD Ot J45.909 UNSPECIFIED ASTHMA, UNCOMPLICATED 09/13/2017 POWER [...] I10 ESSENTIAL (PRIMARY) HYPERTENSION 09/13/2017 POWER ABEBE MD Ot J45.909 UNSPECIFIED ASTHMA, UNCOMPLICATED 09/13/2017 POWER ABEBE MD Ot K21.9 GASTRO-ESOPHAGEAL REFLUX DISEASE WITHOUT 09/13/2017 POWER ABEBE MD Ot K57.32 DVTRCLI OF LG INT W/O PERFORATION OR ABS 09/13/2017 POWER ABEEB MD Ot K76.0 FATTY (CHANGE OF) LIVER, NOT ELSEWHERE C 09/13/2017 POWER ABEBE MD Ot R73.03 PREDIABETES 09/22/2017 NUZHAT FRANKS Ot R10.11 RIGHT UPPER QUADRANT PAIN 01/27/2018 NUZHAT FRANKS Ot R10.11 RIGHT UPPER QUADRANT PAIN 01/27/2018 SOTERO VELASCO APRN Ot S80.11XA CONTUSION OF RIGHT LOWER LEG, INITIAL EN 01/27/2018 SOTERO VELASCO APRN Ot W19.XXXA UNSPECIFIED FALL, INITIAL ENCOUNTER 01/27/2018 VELASCO, SOTERO L LOOM WINDER TENDER Ot Y99.8 OTHER EXTERNAL CAUSE STATUS 01/30/2018 BARON REYNAGA MD Ot E11.9 TYPE 2 DIABETES MELLITUS WITHOUT COMPLIC 01/30/2018 BARON REYNAGA MD Ot F32.9 MAJOR DEPRESSIVE DISORDER, SINGLE EPISOD 01/30/2018 BARON REYNAGA MD Ot G43.909 MIGRAINE, UNSP, NOT INTRACTABLE, WITHOUT 01/30/2018 BARON REYNAGA MD Ot I10 ESSENTIAL (PRIMARY) HYPERTENSION 01/30/2018 BARON REYNAGA MD Ot J45.909 UNSPECIFIED ASTHMA, UNCOMPLICATED 01/30/2018 BARON REYNAGA MD Ot K21.9 GASTRO-ESOPHAGEAL REFLUX DISEASE WITHOUT 01/30/2018 BARON REYNAGA MD Ot R07.89 OTHER CHEST PAIN 01/30/2018 BARON REYNAGA MD Ot Z87.42 PERSONAL HISTORY OF OTH DISEASES OF THE 01/30/2018 BARON REYNAGA MD Ot Z88.5 ALLERGY STATUS TO NARCOTIC AGENT STATUS Procedures Code [place] [address] UA LONG DIP 12/18/2012 12233 MICRO ALBUMIN-IN HOUSE 12/18/2012 54231 WART DESTRUCT 1-14 (CRYO) 02/23/2013 98544 CULTURE UROGENITAL 03/06/2013 74295 SMEAR WET MOUNT SALINE/INK 03/06/2013 81966 GC/CHLAM PROBE (STATE) 03/06/2013 03171 PAP SMEAR 03/06/2013 Q0091 PAP SMEAR OBTAIN SMEAR 03/06/2013 02451 ROUTINE VENIPUNCTURE 03/07/2013 49015 CMP 03/07/2013 41454 LIPID PANEL 03/07/2013 16858 A1C (RML) 03/07/2013 81960 TSH 03/07/2013 71230 CBC 03/07/2013 73309 IMMUNOTHERAPY, ONE INJECTION 10/03/2014 J1885 TORADOL INJ 10/03/2014 J2550 PHENERGAN INJECTION UP TO 50 MG 10/03/2014 77193 ROUTINE VENIPUNCTURE 11/26/2014 06752 BMP 11/26/2014 35838 MAGNESIUM 11/26/2014 0852660 GFR CALC (RESULT ONLY) 11/26/2014 31139 NAIL REMOVAL SINGLE ( COMPLETE OR PARTIAL) 03/04/2015 Results Test Result Range Complete urinalysis with reflex to culture - 10/06/16 21:04 Urine color determination YELLOW NRG Urine [...] Manual blood segmented neutrophils/100 leukocytes 64 % NR Blood band neutrophils/100 leukocytes 0 % [facility] Manual blood lymphocytes/100 leukocytes 31 % NR Manual eosinophils/100 leukocytes in nose 4 % NR Manual blood basophils/100 leukocytes 0 % [facility] Blood erythrocyte morphology finding identification NORMAL [facility] Comprehensive metabolic panel - 04/06/17 15:15 Serum [...] calculation of estimated glomerular filtration rate > [facility] Serum or plasma glucose measurement (mass/volume) 100 [...] OF GROWTH Isolated NRG Bacterial blood culture [id number] NRG Bacterial blood culture - 09/12/17 15:30 [...] plasma albumin measurement (mass/volume) 3.1 g/dL 3.2-4.5 Automated blood complete blood count (hemogram) panel - 01/27/18 11:15 Blood leukocytes automated count (number/volume) 10.5 10*3/uL 4.3-11.0 Blood erythrocytes automated count (number/volume) 4.95 10*6/uL 4.35-5.85 Venous blood hemoglobin measurement (mass/volume) 15.1 g/dL 11.5-16.0 Blood hematocrit (volume fraction) 45 % 35-52 Automated erythrocyte mean corpuscular volume 90 [foz_us] 80-99 Automated erythrocyte mean corpuscular hemoglobin (mass per erythrocyte) 31 pg 25-34 Automated erythrocyte mean corpuscular hemoglobin concentration measurement ( mass/volume) 34 g/dL 32-36 Automated erythrocyte distribution width ratio 13.5 % 10.0-14.5 Automated blood platelet count (count/volume) 274 10*3/uL 130-400 Automated blood platelet mean volume measurement 10.4 [foz_us] 7.4-10.4 Comprehensive metabolic panel - 01/27/18 11:15 Serum or plasma sodium measurement (moles/volume) 139 mmol/L 135-145 Serum or plasma potassium measurement (moles/volume) 3.7 mmol/L 3.6-5.0 Serum or plasma chloride measurement (moles/volume) 105 mmol/L 98-107 Carbon dioxide 23 mmol/L 21-32 Serum or plasma anion gap determination (moles/volume) 11 mmol/L 5-14 Serum or plasma urea nitrogen measurement (mass/volume) 12 mg/dL 7-18 Serum or plasma creatinine measurement (mass/volume) 0.68 mg/dL 0.60-1.30 Serum or plasma urea nitrogen/creatinine mass ratio 18 NRG Serum or plasma creatinine measurement with calculation of estimated glomerular filtration rate > NRG Serum or plasma glucose measurement (mass/volume) 130 mg/dL 70-105 Serum or plasma calcium measurement (mass/volume) 8.3 mg/dL 8.5-10.1 Serum or plasma total bilirubin measurement (mass/volume) 0.4 mg/dL 0.1-1.0 Serum or plasma alkaline phosphatase measurement (enzymatic activity/volume) 83 U/L 40-136 Serum or plasma aspartate aminotransferase measurement (enzymatic activity/ volume) 16 U/L 5-34 Serum or plasma alanine aminotransferase measurement (enzymatic activity/volume ) 26 U/L 0-55 Serum or plasma protein measurement (mass/volume) 6.0 g/dL 6.4-8.2 Serum or plasma albumin measurement (mass/volume) 3.6 g/dL 3.2-4.5 Serum or plasma creatine kinase MB measurement (enzymatic activity/volume) - 11:15 Serum or plasma creatine kinase MB measurement (enzymatic activity/volume) 1.0 ng/mL <6.6 Serum or plasma troponin i.cardiac measurement (mass/volume) - 01/27/18 11:15 Serum or plasma troponin i.cardiac measurement (mass/volume) < ng/ mL <0.30 Lipase - 01/27/18 11:15 Lipase 25 U/L 8-78 Encounters ACCT No. Visit Date/Time Discharge Status Pt. Type Provider Facility Loc./Unit Complaint [id number] 03/04/2015 13:00:00 03/04/2015 23:59:59 CLS Outpatient TYLER GAN MD [id number] 12/03/2014 08:41:00 12/03/2014 23:59:59 CLS Outpatient CORBY WALTERS DO [id number] 10/03/2014 14:53:00 10/03/2014 23:59:59 CLS Outpatient CORBY WALTERS DO [id number] 08/05/2014 00:00:00 08/05/2014 23:59:59 CLS Outpatient KATELYN AYALA DDS [id number] 06/25/2014 16:28:00 06/25/2014 23:59:59 CLS Outpatient CORBY WALTERS DO [id number] 01/24/2014 15:30:00 01/24/2014 23:59:59 CLS Outpatient NUZHAT FRANKS APRN [id number] 03/07/2013 08:40:00 03/07/2013 23:59:59 CLS Outpatient FAUZIA VALLADARES MD [id number] 03/06/2013 13:23:00 03/06/2013 23:59:59 CLS Outpatient [id number] 02/23/2013 08:44:00 02/23/2013 23:59:59 CLS Outpatient [id number] 12/25/2012 14:09:00 12/25/2012 23:59:59 CLS Outpatient NUZHAT FRANKS APRN [id number] 03/19/2013 14:36:00 Document Registration [id number] 01/27/2018 10:45:00 01/27/2018 12:48:00 DIS Outpatient JUHI PELLETIER, BARON Chan [facility] ER CP LAST NIGHT [id number] 09/22/2017 10:14:00 09/22/2017 23:59:59 CLS Outpatient VELASCOSOTERO LOOM WINDER TENDER [facility] RAD POST-TRAUMA,SWOLLEN; ERYTHEMATOUS [id number] 09/12/2017 14:35:00 09/13/2017 17:48:00 DIS Inpatient POWER ABEBE MD [facility] 4TH SEPSIS,DIVERTICULITIS, FAILED OUTPT ABXS [id number] 07/27/2017 16:23:00 07/27/2017 23:59:59 CLS Outpatient HEATHER SMITH LOOM WINDER TENDER [facility] RT J30.2 SEASONAL ALLERGIES [id number] 07/18/2017 16:27:00 07/18/2017 16:40:00 DIS Outpatient HEATHER SMITH LOOM WINDER TENDER [facility] SLEEP G47.10 [id number] 05/17/2017 07:33:00 05/17/2017 10:05:00 DIS Outpatient MARCELINA BRYAN DO [facility] ENDO REFLUX; SCREENING [id number] 05/13/2017 05:40:00 05/13/2017 12:27:00 DIS Outpatient MARCELINA BRYAN DO [facility] PREOP REFLUX, SCREENING [id number] 04/06/2017 16:00:00 04/07/2017 14:30:00 DIS Inpatient POWER ABEBE MD [facility] 4TH DIVERTICULITIS [id number] 03/24/2017 08:00:00 03/24/2017 13:30:00 DIS Outpatient MARCELINA BRYAN DO [facility] SDC BILIARY DYSKINESIA [id number] 03/17/2017 09:37:00 03/17/2017 11:06:00 DIS Outpatient MARCELINA BRYAN DO [facility] PREOP BILIARY DYSKENSIA [id number] 02/28/2017 12:06:00 02/28/2017 23:59:59 CLS Outpatient NUZHAT FRANKS CFAVA [facility] CARD RUQ ABD PAIN [id number] 02/23/2017 13:12:00 02/23/2017 23:59:59 CLS Outpatient NUZHAT FRANKS CFAVA [facility] RAD RUQ PAIN [id number] 12/26/2016 00:20:00 12/26/2016 02:36:00 DIS Emergency JERZY PEÑALOZA MD [facility] ER R SIDE AND BACK PAIN [id number] 10/26/2016 20:55:00 10/27/2016 10:45:00 DIS Inpatient ROSA PELLETIER, ALCON Odell [facility] 4TH CHEST PAIN,HTN [id number] 09/05/2016 20:03:00 09/06/2016 12:52:00 DIS Inpatient ALCON LEE MD [facility] 4TH ACUTE DIVERTICULITIS, INTRACTABLE LLQ [id number] 09/02/2016 20:04:00 09/03/2016 00:16:00 DIS Emergency PRINCESS SEALS DO [facility] ER ABD PAIN [id number] 05/05/2016 10:40:00 05/05/2016 23:59:59 CLS Outpatient NUZHAT FRANKS CFAVA [facility] RAD RUQ ABD PAIN [id number] 08/29/2015 15:25:00 08/29/2015 17:15:00 DIS Emergency CYDNEY BEYER MD [facility] ER SOA,CP [id number] 05/09/2015 12:00:00 05/09/2015 13:55:00 DIS Emergency JOSUE CUNNINGHAM [facility] ER R FOOT SWELLING/ SPIDER BITE [id number] 11/16/2014 23:42:00 11/17/2014 01:19:00 DIS Emergency VA GLEASON MD [facility] ER FALL;BACK PAIN [id number] 01/30/2018 20:24:00 ACT Emergency PRINCESS SEALS DO [facility] ER ABNORMAL EKG [id number] 05/11/2012 07:49:00 Document Registration [id number] 02/27/2012 12:12:00 Document Registration
[2018-01-30] MEDS ORDERED: ANTACID SUSP 30 ML UDC (MYLANTA) PO ONE (20:45)
[2018-01-30] MEDS ORDERED: RT-ALBUTEROL/IPRATROPIUM 3 ML (DUONEB) VIAL INH ONE (20:45)
[2018-01-30] MEDS ORDERED: LIDOCAINE 2% VISCOUS 15 ML UDC PO ONE (20:45)
--- NOTE | 2018-01-30 20:49 | ED General ---
General Chief Complaint: General Problems/Pain Stated Complaint: ABNORMAL EKG Nursing Triage Note: PT TO ED 6 FOR "ABNORMAL EKG". PER PT, SENT BY DR VO FOR "EKG CHANGES" DR VO COMPARED HER EKG FROM 01/27 TO AN EKG PERFORMED IN HER OFFICE TODAY ET TOLD PT "THERE WERE CHANGES ET PT NEEDED TO COME TO ED FOR RE-EVALUATION". PT DENIES ANY C/O AT THIS TIME. Nursing Sepsis Screen: No Definite Risk Source of Information: Patient Exam Limitations: No Limitations History of Present Illness Date Seen by Provider: Jan 30, 2018 Time Seen by Provider: 20:45 Initial Comments To ER with reports of EKG changes. Patient was seen here on 01/27/18 with reports of having had chest pain the night before. Her workup here was normal but she was recommended admission for further evaluation but she chose to leave. She followed up in the clinic today and had an EKG done and was told it was different she should come back to the emergency room according to her. At this time she reports some epigastric burning sensation and a little shortness of breath. Timing/Duration: 1-2 Days Severity: Moderate Allergies and Home Medications Allergies Coded Allergies: tramadol HCl (Verified Allergy, Mild, HIVES, Pt has received Lortab w/o issue, 09/12/17) Home Medications Atenolol 50 Mg Tablet, 75 MG PO HS, (Reported) TAKES 1 & 1/2 (50 MG) TABLETS Cetirizine HCl 10 Mg Tablet, 10 MG PO HS, (Reported) LAST FILLED 08/08/17 #30 Ciprofloxacin HCl 500 Mg Tablet, 500 MG PO Q12H, (Reported) FILLED 09/06/17 #14 FOR A 7 DAY THERAPY Clonazepam 1 Mg Tablet, 0.5-1 MG PO BID PRN for ANXIETY, (Reported) TAKES 1/2-1 (1 MG) TABLET Fluticasone Propionate 16 Gm Hurricane.susp, 1 SPRAY NSEACH DAILY, (Reported) LAST FILLED 06/28/17 #16GM Hydrochlorothiazide 25 Mg Tablet, 25 MG PO DAILY, (Reported) Hydrocodone Bit/Acetaminophen 1 Each Tablet, 1 TAB PO TID PRN for PAIN-MODERATE, (Reported) Metronidazole 500 Mg Tablet, 500 MG PO Q12H, (Reported) FILLED 09/06/17 #14 FOR A 7 DAY THERAPY Montelukast Sodium 10 Mg Tablet, 10 MG PO HS, (Reported) LAST FILLED 08/08/17 #30 Sucralfate 1 Gm Tablet, 1 GM PO ACHS PRN for STOMACH UPSET, (Reported) Patient Home Medication List Home Medication List Reviewed: Yes Constitutional: see HPI EENTM: see HPI Respiratory: no symptoms reported Cardiovascular: no symptoms reported Genitourinary: no symptoms reported Musculoskeletal: no symptoms reported Skin: no symptoms reported Psychiatric/Neurological: No Symptoms Reported Hematologic/Lymphatic: No Symptoms Reported Immunological/Allergic: no symptoms reported Past Fkmhher-Gzyigg-Hobhzo Hx Patient Social History Alcohol Use: Denies Use Number of Drinks Today: AA Alcohol Beverage of Choice: Beer Recreational Drug Use: No Type Used: Cigars Recent Foreign Travel: No Contact w/Someone Who Travel: No Recent Infectious Disease Expo: No Recent Hopitalizations: No Immunizations Up To Date Tetanus Booster (TDap): More than 5yrs PED Vaccines UTD: Yes Seasonal Allergies Seasonal Allergies: Yes (MILD) Surgeries History of Surgeries: Yes (WART REMOVALS; "CYST" REMOVALS FROM SKIN OF VARIOUS PARTS OF BODY) Surgeries: Gallbladder Respiratory History of Respiratory Disorde: Yes Respiratory Disorders: Asthma Currently Using CPAP: No Currently Using BIPAP: No Cardiovascular History of Cardiac Disorders: Yes (SWELLING AT TIMES) Cardiac Disorders: Chronic Edema/Swelling, Hypertension Neurological History of Neurological Disord: Yes Neurological Disorders: Headaches /Migraines Reproductive System Hx Reproductive Disorders: Yes Sexually Transmitted Disease: No HIV/AIDS: No Female Reproductive Disorders: Menstrual Problems, Polycystic Ovarian Dis Genitourinary History of Genitourinary Disor: No Gastrointestinal History of Gastrointestinal Di: Yes (SANTORO DISEASE-FATTY LIVER) Gastrointestinal Disorders: Colitis, Gastroesophageal Reflux, Diverticulosis, Ulcer Musculoskeletal History of Musculoskeletal Dis: Yes (CHRONIC BILATERAL KNEE PAIN, chostrochrondritis) Musculoskeletal Disorders: Chronic Back Pain Endocrine History of Endocrine Disorders: Yes ("PRE" DIABETIC--DOES NOT CHECK BLOOD SUGAR ; OBESITY) Endocrine Disorders: Diabetes, Non-Insulin dep HEENT Loss of Vision: Bilateral Hearing Impairment: Denies Cancer History of Cancer: No Did You Recieve Any Treatments: No Psychosocial History of Psychiatric Problem: Yes Behavioral Health Disorders: Sleep Difficulties, Depression Integumentary History of Skin or Integumenta: No Blood Transfusions History of Blood Disorders: No Adverse Reaction to a Blood Tr: No Family Medical History Significant Family History: No Pertinent Family Hx Family Medial History: Alcoholism 19 FATHER 19 MOTHER Arthritis 19 MOTHER Asthma 19 MOTHER Cancer of mouth 19 FATHER Cataracts 19 MOTHER Dementia 19 MOTHER Diabetes mellitus Drug abuse 19 FATHER 19 MOTHER Fibrocystic disease of breast 19 MOTHER Headache disorder 19 MOTHER G8 SISTER Hypertension 19 MOTHER Respiratory disorder 19 FATHER 19 MOTHER Physical Exam Vital Signs Vital Signs - First Documented 01/30/18 20:28 Temp 97.0 Pulse 98 Resp 20 B/P (MAP) 168/96 (120) Pulse Ox 99 O2 Delivery Room Air Capillary Refill : Less Than 3 Seconds General Appearance: No Apparent Distress, WD/WN Eyes: Bilateral Eye Normal Inspection, Bilateral Eye PERRL, Bilateral Eye EOMI HEENT: PERRL/EOMI, TMs Normal Neck: Full Range of Motion, Normal Inspection Respiratory: No Accessory Muscle Use, No Respiratory Distress Cardiovascular: Regular Rate, Rhythm, Normal Peripheral Pulses, Other ( epigastric area is tender to palpation. There is a faint expiratory wheezes on auscultation of the lungs.) Gastrointestinal: Normal Bowel Sounds, Non Tender, Soft Extremity: Normal Capillary Refill, Normal Inspection, No Calf Tenderness Neurologic/Psychiatric: Alert, Oriented x3, cartridge feeder II-XII Norm as Tested Skin: Normal Color, Warm/Dry Progress/Results/Core Measures Suspected Sepsis Recent Fever Within 48 Hours: No Infection Criteria Present: None New/Unexplained Altered Menta: No Sepsis Screen: No Definite Risk Sepsis Diagnosis: SIRS Temperature:97.0 Pulse: 98 Respiratory Rate: 20 Laboratory Tests 01/30/18 20:45: White Blood Count 12.0H Blood Pressure 168 /96 Mean: 120 Laboratory Tests 01/30/18 20:45: Creatinine 0.76, Platelet Count 280, Total Bilirubin 0.2 Results/Orders Lab Results Laboratory Tests Test 01/30/18 20:45 Range/Units White Blood Count 12.0 H 4.3-11.0 10^3/uL Red Blood Count 4.71 4.35-5.85 10^6/uL Hemoglobin 14.6 11.5-16.0 G/DL Hematocrit 43 35-52 % Mean Corpuscular Volume 91 80-99 FL Mean Corpuscular Hemoglobin 31 25-34 PG Mean Corpuscular Hemoglobin Concent 34 32-36 G/DL Red Cell Distribution Width 13.4 10.0-14.5 % Platelet Count 280 130-400 10^3/uL Mean Platelet Volume 10.5 H 7.4-10.4 FL Neutrophils (%) (Auto) 65 42-75 % Lymphocytes (%) (Auto) 26 12-44 % Monocytes (%) (Auto) 6 0-12 % Eosinophils (%) (Auto) 4 0-10 % Basophils (%) (Auto) 1 0-10 % Neutrophils # (Auto) 7.7 1.8-7.8 X 10^3 Lymphocytes # (Auto) 3.1 1.0-4.0 X 10^3 Monocytes # (Auto) 0.7 0.0-1.0 X 10^3 Eosinophils # (Auto) 0.4 H 0.0-0.3 10^3/uL Basophils # (Auto) 0.1 0.0-0.1 10^3/uL Sodium Level 142 135-145 MMOL/L Potassium Level 3.5 L 3.6-5.0 MMOL/L Chloride Level 108 H 98-107 MMOL/L Carbon Dioxide Level 26 21-32 MMOL/L Anion Gap 8 5-14 MMOL/L Blood Urea Nitrogen 10 7-18 MG/DL Creatinine 0.76 0.60-1.30 MG/DL Estimat Glomerular Filtration Rate > 60 BUN/Creatinine Ratio 13 Glucose Level 163 H 70-105 MG/DL Calcium Level 8.5 8.5-10.1 MG/DL Total Bilirubin 0.2 0.1-1.0 MG/DL Aspartate Amino Transf (AST/SGOT) 21 5-34 U/L Alanine Aminotransferase (ALT/SGPT) 28 0-55 U/L Alkaline Phosphatase 120 40-136 U/L Troponin I < 0.30 <0.30 NG/ML Total Protein 6.4 6.4-8.2 GM/DL Albumin 3.7 3.2-4.5 GM/DL Lipase 34 8-78 U/L My Orders Orders - AMY BENSON APPLIANCE SERVICER Troponin I (01/30/18 20:38) Ekg Tracing (01/30/18 20:38) Cbc With Automated Diff (01/30/18 20:43) Comprehensive Metabolic Panel (01/30/18 20:43) Lipase (01/30/18 20:43) Chest 1 View, Ap/Pa Only (01/30/18 20:43) Albuterol/Ipra Inhalation Soln (Duoneb I (01/30/18 20:45) Svn Sm Volume Nebulizer Rt-Rfs (01/30/18 20:43) Antacid Suspension (Mylanta Suspension (01/30/18 20:45) Lidocaine 2% Viscous 15 Ml (Xylocaine Vi (01/30/18 20:45) Medications Given in ED Current Medications Medications Dose Ordered Sig/Nemo Route Start Time Stop Time Status Last Admin Dose Admin Al Hydrox/Mg Hydrox/Simethicone 30 ml ONCE ONCE PO 01/30/18 20:45 01/30/18 20:46 DC 01/30/18 20:50 30 ML Albuterol/ Ipratropium 3 ml ONCE ONCE INH 01/30/18 20:45 01/30/18 20:46 DC 01/30/18 20:55 3 ML Lidocaine HCl 15 ml ONCE ONCE PO 01/30/18 20:45 01/30/18 20:46 DC 01/30/18 20:50 15 ML Vital Signs/I&O Vital Sign - Last 12Hours 01/30/18 01/30/18 20:28 20:56 Temp 97.0 Pulse 98 Resp 20 B/P (MAP) 168/96 (120) Pulse Ox 99 98 O2 Delivery Room Air Room Air Capillary Refill : Less Than 3 Seconds Blood Pressure Mean: 120 Departure Communication (Admissions) Progress Notes I reviewed the EKG today compared with EKG done on 01/27/18 and there are no changes. Normal sinus rhythm without ST segment change, no ectopy, normal intervals, no T-wave changes. Rate is 93. Impression Impression: Primary Impression: Atypical chest pain Disposition: 01 HOME, SELF-CARE (Current) Condition: Stable Departure-Patient Inst. Referrals: CORBY WALTERS DO (PCP) Primary Care Physician NUZHAT FRANKS (Family) Primary Care Physician AMANDO GREGG MD FACP FAC CCDS Yoli HERNANDEZ MD, BASHAR J MD Patient Instructions: Chest Pain Add. Discharge Instructions: 1. Return to ER for any concerns 2. Follow-up with your doctor next week 3. Call one of the cardiologists listed tomorrow to make an appointment to be seen for further evaluation. ll discharge instructions reviewed with patient and/or family. Voiced understanding. AMY BENSON APPLIANCE SERVICER Jan 30, 2018 20:49
[2018-01-30 20:54] LABS: BASOPHILS # (AUTO) 0.1 10^3/uL (0.0-0.1); BASOPHILS % (AUTO) 1 % (0-10); EOSINOPHILS # (AUTO) 0.4 10^3/uL (0.0-0.3); EOSINOPHILS % (AUTO) 4 % (0-10); HEMATOCRIT 43 % (35-52); HEMOGLOBIN 14.6 G/DL (11.5-16.0); LYMPHOCYTES # (AUTO) 3.1 X 10^3 (1.0-4.0); LYMPHOCYTES % (AUTO) 26 % (12-44); MEAN CORPUSCULAR HEMOGLOBIN 31 PG (25-34); MEAN CORPUSCULAR HGB CONC 34 G/DL (32-36); MEAN CORPUSCULAR VOLUME 91 FL (80-99); MEAN PLATELET VOLUME 10.5 FL (7.4-10.4); MONOCYTES # (AUTO) 0.7 X 10^3 (0.0-1.0); MONOCYTES % (AUTO) 6 % (0-12); NEUTROPHILS # (AUTO) 7.7 X 10^3 (1.8-7.8); NEUTROPHILS % (AUTO) 65 % (42-75); PLATELET COUNT 280 10^3/uL (130-400); RED BLOOD COUNT 4.71 10^6/uL (4.35-5.85); RED CELL DISTRIBUTION WIDTH 13.4 % (10.0-14.5)
[2018-01-30 21:17] LABS: ALANINE AMINOTRANSFERASE 28 U/L (0-55); ALBUMIN 3.7 GM/DL (3.2-4.5); ALKALINE PHOSPHATASE 120 U/L (40-136); BILIRUBIN,TOTAL 0.2 MG/DL (0.1-1.0); BUN/CREATININE RATIO 13; CALCIUM 8.5 MG/DL (8.5-10.1); CARBON DIOXIDE 26 MMOL/L (21-32); CHLORIDE 108 MMOL/L (98-107); CREATININE SERUM 0.76 MG/DL (0.60-1.30); GFR ESTIMATED > 60; GLUCOSE 163 MG/DL (70-105); LIPASE 34 U/L (8-78); POTASSIUM 3.5 MMOL/L (3.6-5.0); SODIUM 142 MMOL/L (135-145); TOTAL PROTEIN 6.4 GM/DL (6.4-8.2)
--- NOTE | 2018-01-30 21:31 | Diagnostic Imaging Report ---
Clinical indication: Patient with epigastric pain and shortness of breath. Exam: Portable chest x-ray upright view. Comparisons: Chest x-ray dated 01/27/2018 at 1132 hrs. Findings: Lungs/pleura: Lungs are clear. There is no pneumothorax. There is no pleural effusion. Mediastinum: Unremarkable. Pulmonary vasculature: Unremarkable. Heart: Unremarkable. Bones/extrathoracic soft tissue: Unremarkable. Impression: There is no radiographic evidence of acute cardiopulmonary process. Dictated by: Dictated on workstation # [id number]
[2018-01-30 21:44] VITALS: BP 155/90
== END 2018-01-30 21:44 | disposition home or self-care (01) ==
LOC: EDUNIT# 20:23 → ER 20:24
DX: R07.89 Other chest pain (principal); J45.909 Unspecified asthma, uncomplicated; I10 Essential (primary) hypertension; G43.909 Migraine, unspecified, not intractable, without status migrainosus; E11.9 Type 2 diabetes mellitus without complications; E66.9 Obesity, unspecified; F32.9 Major depressive disorder, single episode, unspecified; K21.9 Gastro-esophageal reflux disease without esophagitis; Z87.19 Personal history of other diseases of the digestive system; Z88.5 Allergy status to narcotic agent; Z80.0 Family history of malignant neoplasm of digestive organs; Z68.43 Body mass index [BMI] 50.0-59.9, adult
CPT/HCPCS: 36415; 71045; 80053; 83690; 84484; 85025; 94640

== ENCOUNTER 2018-03-31 10:34 | Emergency (ER) | payer SELFPAY ==
[~2018-03-31] VITALS: Ht 165.1 cm; Wt 138.3 kg
[~2018-03-31 10:34] MED LIST changes: -METF500T4 PO; +METF500T5 PO
--- OUTSIDE RECORDS SUMMARY | 2018-03-31 10:40 | XMS REPORT ---
Author Author NUZHAT FRANKS [facility] Address [address] [place] [address] Care Team Providers Care Web Press Operator Name Role Phone NUZHAT FRANKS Unavailable PROBLEMS Type Condition ICD9-CM Code JBT88-QH Code Onset Dates Condition Status SNOMED Code Problem Insomnia, unspecified type G47.00 Active 242364087 Problem Biliary dyskinesia K82.8 Active 174683068 Problem Migraine with aura and without status migrainosus, not intractable G43.109 Active 4111120 Problem Tobacco abuse Z72.0 Active 071200507 Problem Morbid obesity E66.01 Active 688562007 Problem Diverticulitis of large intestine, unspecified bleeding status, unspecified complication status K57.32 Active 8938739 Problem RUQ abdominal pain R10.11 Active 790847936 Problem Other chronic pain G89.29 Active 12155288 Problem Lumbago with sciatica, right side M54.41 Active 362708993 Problem Essential (primary) hypertension I10 Active 38864089 Problem Anxiety F41.9 Active 86221793 Problem Elevated LDL cholesterol level E78.0 Active 843430571 Problem CAP (community acquired pneumonia) J18.9 Active 316937350 Problem Diverticulitis of large intestine without perforation or abscess without bleeding K57.32 Active 6641069 ALLERGIES No Information ENCOUNTERS Encounter Location Date Diagnosis [facility] [id number] [id number] March, [address] [id number], [place] [id number] Feb, [facility] [address] [id number], [place] [id number] Jan, BMI 50.0-59.9, adult Z68.43 ; Anxiety F41.9 ; Chest pain, unspecified type R07.9 and Essential (primary) hypertension I10 [facility] [address] [id number] [place] [id number] Jan, BMI 45.0-49.9, adult Z68.42 ; Morbid obesity E66.01 ; Chest pain, non-cardiac R07.89 ; Anxiety F41.9 ; Essential (primary) hypertension I10 and Tobacco abuse Z72.0 [facility] [address] [facility] [id number][place] [id number] Dec, Essential (primary) hypertension I10 ; Migraine with aura and without status migrainosus, not intractable G43.109 ; Viral syndrome B34.9 and Lumbago with sciatica, right side M54.41 [address]00565100[place] [id number] Nov, BMI 45.0-49.9, adult Z68.42 ; Migraine with aura and without status migrainosus, not intractable G43.109 and Essential (primary) hypertension I10 [address]00565100[place] [id number] Nov, Essential (primary) hypertension I10 [facility] [address] [facility] [id number][place] [id number] Nov, BMI 45.0-49.9, adult Z68.42 ; Essential (primary) hypertension I10 ; Anxiety F41.9 ; Lumbago with sciatica, right side M54.41 and Other chronic pain G89.29 [facility] [address] [facility] [id number][place] [id number] Nov, [address]65100[place] [id number] Aug, RUQ abdominal pain R10.11 [facility] [address] [facility] [id number] [id number] Aug, Essential (primary) hypertension I10 and Anxiety F41.9 [place] [id number], [place] [id number] May, Essential (primary) hypertension I10 and Anxiety F41.9 [place] [id number] [id number] March, Diverticulitis of large intestine, unspecified bleeding status, unspecified complication status K57.32 [facility] [address]00565100[place] [address] March, [facility] [id number] [place] [id number] March, [facility] [address] [place] [id number] [place] [id number] March, Chest wall pain R07.89 and Dysuria R30.0 [facility] [address] [place] [id number] [place] [id number] March, Anxiety F41.9 [facility] [address] [place] [id number] [place] [address] [id number] Feb, Biliary dyskinesia K82.8 [facility] [address] [id number] [place] [address] [id number] Feb, Biliary dyskinesia K82.8 [facility] [address] [place] [id number] [place] [address] [id number] Jan, Essential (primary) hypertension I10 and RUQ abdominal pain R10.11 [facility] [address] [id number] [place] [address] [id number] Jan, Essential (primary) hypertension I10 and Anxiety F41.9 [facility] [id number] [place] [address] [id number] Dec, Essential (primary) hypertension I10 [facility] [address] [place] [id number] [place] [address] [id number] Nov, Migraine with aura and without status migrainosus, not intractable G43.109 and Essential (primary) hypertension I10 [facility] [id number], [place] [id number] Nov, Anxiety F41.9 ; Migraine with aura and without status migrainosus, not intractable G43.109 and Insomnia, unspecified type G47.00 [facility] [id number], [place] [id number] Oct, Migraine with aura and without status migrainosus, not intractable G43.109 [facility] [address] [id number] [place] [address] [id number] Oct, Anxiety F41.9 and Essential (primary) hypertension I10 [facility] [address] [address] Oct, [facility] [address] [place] [id number] [place] [phone] Sep, [facility] [address] [place] [id number] [place] [address] [id number] Sep, Diverticulitis of large intestine without perforation or abscess without bleeding K57.32 and Anxiety F41.9 [facility] [address] [place] [place] [id number] [place] [address] [id number] Aug, Diverticulitis of large intestine without perforation or abscess without bleeding K57.32 [facility] [address] [id number] [place] [address] [phone] Aug, [facility] [address] [id number] [place] [address] [id number] Aug, [facility] [address] [id number] [place] [address] [id number] Aug, [place] [id number] [place] [address] [id number] Aug, [facility] [address] [id number] Jul, Ingrown left big toenail L60.0 [place] [id number] [place] [address] [id number] Jul, [facility] [id number] [place] [address] [id number] Jul, Ingrowing toenail of right foot L60.0 [place] [id number] [place] [address] [id number] Apr, [address] [id number] Apr, RUQ abdominal pain R10.11 ; Fatty liver disease, nonalcoholic K76.0 ; Hx of hyperglycemia Z86.39 ; Elevated alanine aminotransferase (ALT) level R74.0 ; Elevated LDL cholesterol level E78.0 and Prediabetes R73.[address] [place] [address] [id number] Apr, RUQ abdominal pain R10.11 ; Mild persistent asthma without complication J45.30 ; Anxiety F41.9 and Essential (primary) hypertension I10 [address] [place] [address] [id number] March, Wheezing R06.2 and Cough R05 [place] [id number] [place] [address] [id number] March, [place] [address] [place] [address] [id number] March, [place] [address] [place] [address] [id number] March, Acute severe exacerbation of asthma J45.51 ; Cough R05 and Cough headache G44.83 [place] [address] [place] [address] [id number] Feb, Mild intermittent asthma with acute exacerbation J45.21 and Transient insomnia F51.02 [place] [address] [place] [address] [id number] Feb, Pigmented skin lesion of uncertain nature L81.9 [address] [place] [address] [id number] 07 Feb, 2016 Anxiety F41.9 and Essential (primary) hypertension I10 [address] [place] [address] [id number] Jan, [place] [address] [place] [address] [id number] Jan, Routine gynecological examination Z01.419 and Encounter for Papanicolaou smear for cervical cancer screening Z12.4 [place] [address] [place] [address] [id number] 07 Jan, 2016 Essential (primary) hypertension I10 and Anxiety F41.9 [address] [place] [address] [id number] 10 Dec, 2015 Essential (primary) hypertension I10 and Anxiety F41.9 [place] [id number] [id number] Nov, Essential (primary) hypertension I10 [facility] [address] [id number][place] [id number] Aug, [facility] [id number], [place] [id number] Aug, CAP (community acquired pneumonia) J18.9 [facility] [id number], [place] [id number] Aug, CAP (community acquired pneumonia) J18.[address] [facility] [address] [facility] [facility] [address] [id number], [place] [id number] Aug, CAP (community acquired pneumonia) J18.9 [facility] [id number], [place] [id number] Aug, CAP (community acquired pneumonia) J18.9 and Essential (primary) hypertension I10 [facility] [id number], [place] [id number] Aug, CAP (community acquired pneumonia) J18.9 [facility] [address]00565100[place], [place] [address] Apr, [facility] [id number] [place] [phone]- [phone] Feb, [facility] [id number] [place] [phone]- [phone] Feb, [facility] [address] [place] [id number], [place] [id number] Jan, [facility] [place] [facility] [address] [place] [address] 27672- 6595 Jan, [facility] [place] [facility] [id number] [place] [address] 17541- [phone] Nov, [facility] [address] [place] [id number], [place] [id number] Nov, [facility] [id number] [place] [address]- 7589 Nov, [facility] [address] [id number] [place] [id number] Oct, [facility] [address] [facility] [id number], [place] [address] Oct, [facility] [address] [id number] [place] [id number] Sep, [facility] [address] [facility] [id number], [place] [address] 2546 Sep, [facility] [address] [id number] [place] [id number] Jun, [facility] [address] [facility] [id number], [place] [address]- [address] Jun, [facility] [address] [id number] [place] [id number] Jun, [facility] [address]00565100[place], [place] [address] Jun, [facility] [address] [id number] [place] [id number] May, [facility] [address] [place] [address] [id number], [place] [address]- [address] May, [facility] [address] [id number] [place] [id number] Dec, [facility] [address] [facility] [id number], [place] [address]- [address] Dec, [facility] [address] [id number] [place] [id number] Feb, [facility] [address] [id number] [place] [id number] Feb, [facility] [address] [id number] [place] [id number] Feb, [facility] [place] [facility] [address] [id number] [place] [address]- [address] 16 Feb, 2013 [facility] [address] [id number] [place] [id number] 15 Feb, 2013 [facility] [address] [id number] [place] [id number] 15 Feb, 2013 [facility] [address] [facility] [id number], [place] [address]- [address] 14 Feb, 2013 [facility] [place] [facility] [address] [facility] [id number], [place] [address]- 2546 13 Feb, 2013 [facility] [address] [facility] [id number][place] [address]- [address]46 12 Feb, 2013 [facility] [address] [id number] [place] [id number] Feb, [facility] [address] [id number] [place] [id number] Feb, [facility] [address] [id number] [place] [id number] Jan, [facility] [address] [id number] [place] [id number] Nov, [facility] [address] [id number] [place] [id number] Nov, [facility] [address]00565100[place], [place] [address]- [address] Oct, [facility] [place] [facility] [address]65100[place], [place] [address]- [address] Apr, [facility] [place] [facility] [address]65100[place], [place] [address]- [address] Dec, [facility] [place] [facility] [address]65100[place], [place] [address]- [address] Nov, [facility] [place] [facility] [address] [facility] [id number], [place] [address]- 1322 Oct, [facility] [place] [facility] [address] [facility] [id number], [place] [address]- 6585 Oct, [facility] [place] [facility] [address] [place] [id number], [place] [address]- [address] Sep, [facility] [place] [facility] [address]65[address], [place] [address]- [address] Sep, [facility] [address] [facility] [id number] [place] [address]- [address]36 Sep, IMMUNIZATIONS No Known Immunizations SOCIAL HISTORY Never Assessed REASON FOR VISIT med refill PLAN OF CARE VITAL SIGNS MEDICATIONS Medication Instructions Dosage Frequency Start Date End Date Duration Status Hydrochlorothiazide 25 MG Orally Once a day 1 tablet in the morning 24h 29 Jan, 2017 0 days Active Clonazepam 1 MG Orally Twice a day .5-1 tablet 12h 08 Sep, 2016 0 days Active RESULTS No Results PROCEDURES No Known procedures INSTRUCTIONS MEDICATIONS ADMINISTERED No Known Medications MEDICAL (GENERAL) HISTORY Type Description Date Medical History hypertension Medical History asthma Medical History CT 08/2016 ED-sigmoid diverticulitis, hepatic steatosis, stable bilateral low density adrenal adenomas Medical History GERD Medical History IBSD Medical History sleep apnea Surgical History cholecystectomy 03/24/17 Hospitalization History Diverticulitis-[facility] 08/2016 Hospitalization History Generalized anxiety disorder-[facility] 09/2016 Hospitalization History Diverticulitis-[facility]. Left AMA 04/06/17 Hospitalization History ER visit for migraine 08/2017 Hospitalization History ER visit for chest pain 01/2018
--- OUTSIDE RECORDS SUMMARY | 2018-03-31 10:45 | XMS REPORT | Continuity of Care Document ---
Author Author Formerly [facility] Address Unknown Phone Unavailable Allergies Active Description Code Type Severity Reaction Onset Reported/Identified Relationship to Patient Clinical Status Yes Ultram Drug Allergy 10/08/2009 Yes Ultram Drug Allergy N/A N/A 10/08/2009 Yes lisinopril 10 mg tablet Drug Allergy N/A N/A 03/19/2013 Yes tramadol HCl [id number] Drug Allergy Mild HIVES 03/17/2017 Yes tramadol HCl [id number] Drug Allergy Mild HIVES, Pt has r [...] UPPER RESPIRATORY INFECTIONS OF UNSPECIFIED SITE 12/10/2009 OSFIE WALTERS DOA K 493.92 ASTHMA, UNSPECIFIED, WITH [...] VALLADARES MD 625.8 vaginal odor 03/06/2013 FAUZIA VALLADRAES MD V74.5 visit for: screening exam bact/spirochetal [...] CORBY K 924.3 CONTUSION OF TOE 01/24/2014 AWLTERS DO, CORBY K E849.0 HOME ACCIDENTS 01/24/2014 [...] SPIDER BITE 05/09/2015 JOSUE CUNNINGHAM Ot V06.1 [id number], COMBINED [ 05/09/2015 JOSUE CUNNINGHAM Ot V15.81 [...] 09/03/2016 ARNEL DO, PRINCESS K Ot Z79.84 INTERMEDIATE (CURRENT) USE OF ORAL HYPOGLYC 09/03/2016 ARNEL DO, PRINCESS K Ot Z79.899 OTHER NEON TECHNICIAN (CURRENT) DRUG THERAPY 09/03/2016 ARNEL DO, PRINCESS [...] ARNEL DO, PRINCESS K Ot Z79.899 OTHER INTERMEDIATE (CURRENT) DRUG THERAPY 09/06/2016 ALCON LEE MD [...] JH PELLETIER, JERZY Flores Ot Z79.899 OTHER INTERMEDIATE (CURRENT) DRUG THERAPY 12/26/2016 FRANKS, NUZHAT R [...] 04/07/2017 POWER ABEBE MD Ot Z79.899 OTHER NEON TECHNICIAN (CURRENT) DRUG THERAPY 04/07/2017 POWER ABEBE MD, [...] 04/07/2017 POWER ABEBE MD, Ot Z79.899 OTHER NEON TECHNICIAN (CURRENT) DRUG THERAPY 04/07/2017 POWER ABEBE MD [...] RIGHT UPPER QUADRANT PAIN 07/18/2017 HEATHER SMITH EMPLOYER RELATIONS REPRESENTATIVE Ot G47.10 HYPERSOMNIA, UNSPECIFIED 07/18/2017 HEATHER SMITH EMPLOYER RELATIONS REPRESENTATIVE Ot G47.50 PARASOMNIA, UNSPECIFIED 07/18/2017 HEATHER SMITH EMPLOYER RELATIONS REPRESENTATIVE Ot R53.83 OTHER FATIGUE 08/09/2017 HEATHER SMITH EMPLOYER RELATIONS REPRESENTATIVE Ot J42 UNSPECIFIED CHRONIC BRONCHITIS 08/09/2017 HEATHER SMITH EMPLOYER RELATIONS REPRESENTATIVE Ot J45.909 UNSPECIFIED ASTHMA, UNCOMPLICATED 08/09/2017 HEATHER SMITH EMPLOYER RELATIONS REPRESENTATIVE Ot R53.83 OTHER FATIGUE 08/09/2017 HEATHER SMITH EMPLOYER RELATIONS REPRESENTATIVE Ot Z72.0 TOBACCO USE 08/09/2017 NUZHAT FRANKS CFNP Ot R10.11 RIGHT UPPER QUADRANT PAIN 08/09/2017 HEATHER SMITH EMPLOYER RELATIONS REPRESENTATIVE Ot J42 UNSPECIFIED CHRONIC BRONCHITIS 08/09/2017 HEATHER SMITH EMPLOYER RELATIONS REPRESENTATIVE Ot J45.909 UNSPECIFIED ASTHMA, UNCOMPLICATED 08/09/2017 HEATHER SMITH EMPLOYER RELATIONS REPRESENTATIVE Ot R53.83 OTHER FATIGUE 08/09/2017 HEATHER SMITH EMPLOYER RELATIONS REPRESENTATIVE Ot Z72.0 TOBACCO USE 09/13/2017 POWER ABEBE [...] FALL, INITIAL ENCOUNTER 01/27/2018 VELASCO, SOTERO L EMPLOYER RELATIONS REPRESENTATIVE Ot Y99.8 OTHER EXTERNAL CAUSE STATUS 01/27/2018 JUHI PELLETIER, BARON Chan Ot E11.9 TYPE 2 DIABETES MELLITUS WITHOUT COMPLIC 01/27/2018 JUHI PELLETIER, BARON Chan Ot F32.9 MAJOR DEPRESSIVE DISORDER, SINGLE EPISOD 01/27/2018 JUHI PELLETIER, BARON Chan Ot G43.909 MIGRAINE, UNSP, NOT INTRACTABLE, WITHOUT 01/27/2018 JUHI PELLETIER, BARON Chan Ot I10 ESSENTIAL (PRIMARY) HYPERTENSION 01/27/2018 JUHI PELLETIER, BARON Chan Ot J45.909 UNSPECIFIED ASTHMA, UNCOMPLICATED 01/27/2018 JUHI PELLETIER, BARON Chan Ot K21.9 GASTRO-ESOPHAGEAL REFLUX DISEASE WITHOUT 01/27/2018 JUHI PELLETIER, BARON Chan Ot R07.89 OTHER CHEST PAIN 01/27/2018 JUHI PELLETIER, BARON Chan Ot Z87.42 PERSONAL HISTORY OF OTH DISEASES OF THE 01/27/2018 JUHI PELLETIER, BARON Chan Ot Z88.5 ALLERGY STATUS TO NARCOTIC AGENT STATUS 01/30/2018 JUHI PELLETIER, BARON Chan Ot E11.9 TYPE 2 DIABETES MELLITUS WITHOUT COMPLIC 01/30/2018 JUHI PELLETIER, BARON Chan Ot F32.9 MAJOR DEPRESSIVE DISORDER, SINGLE EPISOD 01/30/2018 JUHI PELLETIER, BARON Chan Ot G43.909 MIGRAINE, UNSP, NOT INTRACTABLE, WITHOUT 01/30/2018 JUHI PELLETIER, BARON Chan Ot I10 ESSENTIAL (PRIMARY) HYPERTENSION 01/30/2018 JUHI PELLETIER, BARON Chan Ot J45.909 UNSPECIFIED ASTHMA, UNCOMPLICATED 01/30/2018 JUHI PELLETIER, BARON Chan Ot K21.9 GASTRO-ESOPHAGEAL REFLUX DISEASE WITHOUT 01/30/2018 JUHI PELLETIER, BARON Chan Ot R07.89 OTHER CHEST PAIN 01/30/2018 JUHI PELLETIER, BARON Chan Ot Z87.42 PERSONAL HISTORY OF OTH DISEASES OF THE 01/30/2018 JUHI PELLETIER, BARON Chan Ot Z88.5 ALLERGY STATUS TO NARCOTIC AGENT STATUS 01/31/2018 NUZHAT FRANKS Ot R10.11 RIGHT UPPER QUADRANT PAIN 01/31/2018 SOTERO VELASCO EMPLOYER RELATIONS REPRESENTATIVE Ot S80.11XA CONTUSION OF RIGHT LOWER LEG, INITIAL EN 01/31/2018 SOTERO VELASCO EMPLOYER RELATIONS REPRESENTATIVE Ot W19.XXXA UNSPECIFIED FALL, INITIAL ENCOUNTER 01/31/2018 SOTERO VELASCO APRN Ot Y99.8 OTHER EXTERNAL CAUSE STATUS 01/31/2018 NUZHAT FRANKS Freddie PFEIFFER Ot R10.11 RIGHT UPPER QUADRANT PAIN 01/31/2018 SOTERO VELASCO APRN Ot S80.11XA CONTUSION OF RIGHT LOWER LEG, INITIAL EN 01/31/2018 SOTERO VELASCO APRN Ot W19.XXXA UNSPECIFIED FALL, INITIAL ENCOUNTER 01/31/2018 SOTERO VELASCO APRN Ot Y99.8 OTHER EXTERNAL CAUSE STATUS 02/01/2018 AMY BENSON APRN Ot E11.9 TYPE 2 DIABETES MELLITUS WITHOUT COMPLIC 02/01/2018 AMY BENSON APRN Ot E66.9 OBESITY, UNSPECIFIED 02/01/2018 AMY BENSON APRN Ot F32.9 MAJOR DEPRESSIVE DISORDER, SINGLE EPISOD 02/01/2018 AMY BENSON APRN Ot G43.909 MIGRAINE, UNSP, NOT INTRACTABLE, WITHOUT 02/01/2018 AMY BENSON APRN Ot I10 ESSENTIAL (PRIMARY) HYPERTENSION 02/01/2018 AMY BENSON APRN Ot J45.909 UNSPECIFIED ASTHMA, UNCOMPLICATED 02/01/2018 AMY BENSON APRN Ot K21.9 GASTRO-ESOPHAGEAL REFLUX DISEASE WITHOUT 02/01/2018 AMY BENSON APRN Ot R07.89 OTHER CHEST PAIN 02/01/2018 AMY BENSON APRN Ot R94.31 ABNORMAL ELECTROCARDIOGRAM [ECG] [EKG] 02/01/2018 AMY BENSON APRN Ot Z68.43 BODY MASS INDEX (BMI) 50-59.9 , ADULT 02/01/2018 AMY BENSON APRN Ot Z80.0 FAMILY HISTORY OF MALIGNANT NEOPLASM OF 02/01/2018 AMY BENSON APRN Ot Z87.19 PERSONAL HISTORY OF OTHER DISEASES OF TH 02/01/2018 AMY BENSON APRN Ot Z88.5 ALLERGY STATUS TO NARCOTIC AGENT STATUS 03/08/2018 SOTERO VELASCO APRN Ot S80.11XA CONTUSION OF RIGHT LOWER LEG, INITIAL EN 03/08/2018 SOTERO VELASCO APRN Ot W19.XXXA UNSPECIFIED FALL, INITIAL ENCOUNTER 03/08/2018 SOTERO VELASCO APRN Ot Y99.8 OTHER EXTERNAL CAUSE STATUS Procedures Code Description [place] [address] UA LONG DIP 12/18/2012 12617 MICRO ALBUMIN-IN HOUSE 12/18/2012 11901 WART DESTRUCT 1-14 (CRYO) 02/23/2013 59179 CULTURE UROGENITAL 03/06/2013 71766 SMEAR WET MOUNT SALINE/INK 03/06/2013 53199 GC/CHLAM PROBE (STATE) 03/06/2013 37601 PAP SMEAR 03/06/2013 Q0091 PAP SMEAR OBTAIN SMEAR 03/06/2013 49528 ROUTINE VENIPUNCTURE 03/07/2013 26668 CMP 03/07/2013 56887 LIPID PANEL 03/07/2013 59429 A1C (RML) 03/07/2013 53406 TSH 03/07/2013 20756 CBC 03/07/2013 93174 IMMUNOTHERAPY, ONE INJECTION 10/03/2014 J1885 TORADOL INJ 10/03/2014 J2550 PHENERGAN INJECTION UP TO 50 MG 10/03/2014 09791 ROUTINE VENIPUNCTURE 11/26/2014 65301 BMP 11/26/2014 96529 MAGNESIUM 11/26/2014 2895191 GFR CALC (RESULT ONLY) 11/26/2014 24219 NAIL REMOVAL SINGLE ( COMPLETE OR PARTIAL) [...] or plasma choriogonadotropin ( test) detection - 11/29/16 19:35 Serum or plasma choriogonadotropin ( test) [...] NRG Blood erythrocyte morphology finding identification NORMAL [facility] Comprehensive metabolic panel - 04/06/17 15:15 [...] - 09/12/17 14:45 QUANTITY OF GROWTH Isolated [facility] Bacterial blood culture [id number] [facility] Bacterial blood culture - 09/12/17 15:30 Bacterial blood culture [facility] Complete blood count (CBC) with automated white [...] - 01/27/18 11:15 Lipase 25 U/L 8-78 Complete blood count (CBC) with automated white blood cell (WBC) differential - 01/30/18 20:45 Blood leukocytes automated count (number/volume) 12.0 10*3/uL 4.3-11.0 Blood erythrocytes automated count (number/volume) 4.71 10*6/uL 4.35-5.85 Venous blood hemoglobin measurement (mass/volume) 14.6 g/dL 11.5-16.0 Blood hematocrit (volume fraction) 43 % 35-52 Automated erythrocyte mean corpuscular volume 91 [foz_us] 80-99 Automated erythrocyte mean corpuscular hemoglobin (mass per erythrocyte) 31 pg 25-34 Automated erythrocyte mean corpuscular hemoglobin concentration measurement ( mass/volume) 34 g/dL 32-36 Automated erythrocyte distribution width ratio 13.4 % 10.0-14.5 Automated blood platelet count (count/volume) 280 10*3/uL 130-400 Automated blood platelet mean volume measurement 10.5 [foz_us] 7.4-10.4 Automated blood neutrophils/100 leukocytes 65 % 42-75 Automated blood lymphocytes/100 leukocytes 26 % 12-44 Blood monocytes/100 leukocytes 6 % 0-12 Automated blood eosinophils/100 leukocytes 4 % 0-10 Automated blood basophils/100 leukocytes 1 % 0-10 Blood neutrophils automated count (number/volume) 7.7 10*3 1.8-7.8 Blood lymphocytes automated count (number/volume) 3.1 10*3 1.0-4.0 Blood monocytes automated count (number/volume) 0.7 10*3 0.0-1.0 Automated eosinophil count 0.4 10*3/uL 0.0-0.3 Automated blood basophil count (count/volume) 0.1 10*3/uL 0.0-0.1 Comprehensive metabolic panel - 01/30/18 20:45 Serum or plasma sodium measurement (moles/volume) 142 mmol/L 135-145 Serum or plasma potassium measurement (moles/volume) 3.5 mmol/L 3.6-5.0 Serum or plasma chloride measurement (moles/volume) 108 mmol/L 98-107 Carbon dioxide 26 mmol/L 21-32 Serum or plasma anion gap determination (moles/volume) 8 mmol/L 5-14 Serum or plasma urea nitrogen measurement (mass/volume) 10 mg/dL 7-18 Serum or plasma creatinine measurement (mass/volume) 0.76 mg/dL 0.60-1.30 Serum or plasma urea nitrogen/creatinine mass ratio 13 NRG Serum or plasma creatinine measurement with calculation of estimated glomerular filtration rate > NRG Serum or plasma glucose measurement (mass/volume) 163 mg/dL 70-105 Serum or plasma calcium measurement (mass/volume) 8.5 mg/dL 8.5-10.1 Serum or plasma total bilirubin measurement (mass/volume) 0.2 mg/dL 0.1-1.0 Serum or plasma alkaline phosphatase measurement (enzymatic activity/volume) 120 U/L 40-136 Serum or plasma aspartate aminotransferase measurement (enzymatic activity/ volume) 21 U/L 5-34 Serum or plasma alanine aminotransferase measurement (enzymatic activity/volume ) 28 U/L 0-55 Serum or plasma protein measurement (mass/volume) 6.4 g/dL 6.4-8.2 Serum or plasma albumin measurement (mass/volume) 3.7 g/dL 3.2-4.5 Serum or plasma troponin i.cardiac measurement (mass/volume) - 01/30/18 20:45 Serum or plasma troponin i.cardiac measurement (mass/volume) < ng/ mL <0.30 Lipase - 01/30/18 20:45 Lipase 34 U/L 8-78 LIPID PANEL - 02/06/18 10:23 CHOLESTEROL, TOTAL 145 mg/dL <200 HDL CHOLESTEROL 34 mg/dL >50 TRIGLYCERIDES 100 mg/dL <150 LDL-CHOLESTEROL 91 mg/dL (calc) NRG CHOL/HDLC RATIO 4.3 (calc) <5.0 NON HDL CHOLESTEROL 111 mg/dL (calc) <130 CMP - 02/06/18 10:23 GLUCOSE 147 mg/dL 65-99 UREA NITROGEN (BUN) 14 mg/dL 7-25 CREATININE 0.67 mg/dL 0.50-1.10 eGFR NON-AFR. LAO 111 mL/min/1.73m2 > OR=60 eGFR 128 mL/min/1.73m2 > OR=60 BUN/CREATININE RATIO NOT APPLICABLE (calc) 6-22 SODIUM 138 mmol/L 135-146 POTASSIUM 4.3 mmol/L 3.5-5.3 CHLORIDE 102 mmol/L 98-110 CARBON DIOXIDE 29 mmol/L 20-31 CALCIUM 8.6 mg/dL 8.6-10.2 PROTEIN, TOTAL 6.2 g/dL 6.1-8.1 ALBUMIN 3.9 g/dL 3.6-5.1 GLOBULIN 2.3 g/dL (calc) 1.9-3.7 ALBUMIN/GLOBULIN RATIO 1.7 (calc) 1.0-2.5 BILIRUBIN, TOTAL 0.4 mg/dL 0.2-1.2 ALKALINE PHOSPHATASE 85 U/L 33-115 AST 15 U/L 10-30 ALT 21 U/L 6-29 MAGNESIUM SERUM - 02/06/18 10:23 MAGNESIUM 2.0 mg/dL 1.5-2.5 CBC - 02/06/18 10:23 WHITE BLOOD CELL COUNT 10.1 Thousand/uL 3.8-10.8 RED BLOOD CELL COUNT 5.01 Million/uL 3.80-5.10 HEMOGLOBIN 15.1 g/dL 11.7-15.5 HEMATOCRIT 45.6 % 35.0-45.0 MCV 91.0 fL 80.0-100.0 MCH 30.1 pg 27.0-33.0 MCHC 33.1 g/dL 32.0-36.0 RDW 13.0 % 11.0-15.0 PLATELET COUNT 303 Thousand/uL 140-400 MPV 10.6 fL 7.5-12.5 ABSOLUTE NEUTROPHILS 6828 cells/uL 9574-0236 ABSOLUTE LYMPHOCYTES 2262 cells/uL 850-3900 ABSOLUTE MONOCYTES 566 cells/uL 200-950 ABSOLUTE EOSINOPHILS 394 cells/uL 15-500 ABSOLUTE BASOPHILS 51 cells/uL 0-200 NEUTROPHILS 67.6 % NRG LYMPHOCYTES 22.4 % NRG MONOCYTES 5.6 % NRG EOSINOPHILS 3.9 % NRG BASOPHILS 0.5 % NRG TSH - 02/06/18 10:23 TSH 0.95 mIU/L NRG Encounters ACCT No. Visit Date/Time Discharge Status Pt. Type Provider Facility Loc./Unit Complaint [id number] 03/04/2015 13:00:00 03/04/2015 23:59:59 CLS Outpatient TYLER GAN MD [id number] 12/03/2014 08:41:00 12/03/2014 23:59:59 CLS Outpatient CORBY WALTERS DO [id number] 10/03/2014 14:53:00 10/03/2014 23:59:59 CLS Outpatient CORBY WALTERS DO [id number] 08/05/2014 00:00:00 08/05/2014 23:59:59 CLS Outpatient KATELYN AYALA DDS [id number] 06/25/2014 16:28:00 06/25/2014 23:59:59 CLS Outpatient CORBY WALTERS DO [id number] 01/24/2014 15:30:00 01/24/2014 23:59:59 CLS Outpatient FRANKSNUZHAT RIVERA APRN [id number] 03/07/2013 08:40:00 03/07/2013 23:59:59 CLS Outpatient JACQUELYN PELLETIER, FAUZIA [id number] 03/06/2013 13:23:00 03/06/2013 23:59:59 CLS Outpatient [id number] 02/23/2013 08:44:00 02/23/2013 23:59:59 CLS Outpatient [id number] 12/25/2012 14:09:00 12/25/2012 23:59:59 CLS Outpatient FRANKS NUZHAT SALAZAR [id number] 03/19/2013 14:36:00 Document Registration [id number] 01/30/2018 11:00:00 01/30/2018 23:59:59 CLS Outpatient FRANKSNUZHAT RIVERA APRN [facility] [id number] 02/06/2018 09:20:00 Document Registration [id number] 01/30/2018 20:24:00 01/30/2018 21:44:00 DIS Outpatient AMY BENSON EMPLOYER RELATIONS REPRESENTATIVE [facility] ER ABNORMAL EKG [id number] 01/27/2018 10:45:00 01/27/2018 12:48:00 DIS Emergency JUHI PELLETIER, BARON Chan [facility] ER CP LAST NIGHT [id number] 09/22/2017 10:14:00 09/22/2017 23:59:59 CLS Outpatient SOTERO VELASCO EMPLOYER RELATIONS REPRESENTATIVE [facility] RAD POST-TRAUMA,SWOLLEN; ERYTHEMATOUS [id number] 09/12/2017 14:35:00 09/13/2017 17:48:00 DIS Inpatient ANDRAE PELLETIER, POWER Frazier [facility] 4TH SEPSIS,DIVERTICULITIS, FAILED OUTPT ABXS [id number] 07/27/2017 16:23:00 07/27/2017 23:59:59 CLS Outpatient HEATHER SMITH EMPLOYER RELATIONS REPRESENTATIVE [facility] RT J30.2 SEASONAL ALLERGIES [id number] 07/18/2017 16:27:00 07/18/2017 16:40:00 DIS Outpatient HEATHER SMITH EMPLOYER RELATIONS REPRESENTATIVE [facility] SLEEP G47.10 [id number] 05/17/2017 07:33:00 05/17/2017 10:05:00 DIS Outpatient MARCELINA BRYAN DO [facility] ENDO REFLUX; SCREENING [id number] 05/13/2017 05:40:00 05/13/2017 12:27:00 DIS Outpatient MARCELINA BRYAN DO [facility] PREOP REFLUX, SCREENING [id number] 04/06/2017 16:00:00 04/07/2017 14:30:00 DIS Inpatient POWER ABEBE MD [facility] 4TH DIVERTICULITIS [id number] 03/24/2017 08:00:00 03/24/2017 13:30:00 DIS Outpatient MARCELINA BRYAN DO [facility] SDC BILIARY DYSKINESIA [id number] 03/17/2017 09:37:00 03/17/2017 11:06:00 DIS Outpatient MARCELINA BRYAN DO [facility] PREOP BILIARY DYSKENSIA [id number] 02/28/2017 12:06:00 02/28/2017 23:59:59 CLS Outpatient NUZHAT FRANKS [facility] CARD RUQ ABD PAIN [id number] 02/23/2017 13:12:00 02/23/2017 23:59:59 CLS Outpatient NUZHAT FRANKS [facility] RAD RUQ PAIN [id number] 12/26/2016 00:20:00 12/26/2016 02:36:00 DIS Emergency JERZY PEÑALOZA MD [facility] ER R SIDE AND BACK PAIN [id number] 10/26/2016 20:55:00 10/27/2016 10:45:00 DIS Inpatient ALCON LEE MD [facility] 4TH CHEST PAIN,HTN [id number] 09/05/2016 20:03:00 09/06/2016 12:52:00 DIS Inpatient ALCON LEE MD [facility] 4TH ACUTE DIVERTICULITIS, INTRACTABLE LLQ [id number] 09/02/2016 20:04:00 09/03/2016 00:16:00 DIS Emergency ARNEL NOBLE PRINCESS K [facility] ER ABD PAIN [id number] 05/05/2016 10:40:00 05/05/2016 23:59:59 CLS Outpatient NUZHAT FRANKS [facility] RAD RUQ ABD PAIN [id number] 08/29/2015 15:25:00 08/29/2015 17:15:00 DIS Emergency CYDNEY BEYER MD [facility] ER SOA,CP [id number] 05/09/2015 12:00:00 05/09/2015 13:55:00 DIS Emergency JOSUE CUNNINGHAM [facility] ER R FOOT SWELLING/ SPIDER BITE [id number] 11/16/2014 23:42:00 11/17/2014 01:19:00 DIS Emergency VA GLEASON MD [facility] ER FALL;BACK PAIN [id number] 05/11/2012 07:49:00 Document Registration [id number] 02/27/2012 12:12:00 Document Registration
--- NOTE | 2018-03-31 11:07 | ED GI ---
General Stated Complaint: LOWER LEFT SIDE PAIN,NAUSEA,BLOODY STOOL Source of Information: Patient Exam Limitations: No Limitations History of Present Illness Date Seen by Provider: March 31, 2018 Time Seen by Provider: 11:05 Initial Comments to ER with reports of left lower quadrant abdominal pain that began yesterday. She has associated nausea, loose stools that are blood-streaked. She has a history of diverticulitis and states that this feels similar. No fevers or chills. Timing/Duration: 1-2 Days Severity/Quality: Moderate Location: LLQ Radiation: No Radiation Activities at Onset: None Allergies and Home Medications Allergies Coded Allergies: tramadol HCl (Verified Allergy, Mild, HIVES, Pt has received Lortab w/o issue, 09/12/17) Home Medications Atenolol 50 Mg Tablet, 75 MG PO HS, (Reported) TAKES 1 & 1/2 (50 MG) TABLETS Cetirizine HCl 10 Mg Tablet, 10 MG PO HS, (Reported) LAST FILLED 08/08/17 #30 Ciprofloxacin HCl 500 Mg Tablet, 500 MG PO Q12H, (Reported) FILLED 09/06/17 #14 FOR A 7 DAY THERAPY Clonazepam 1 Mg Tablet, 0.5-1 MG PO BID PRN for ANXIETY, (Reported) TAKES 1/2-1 (1 MG) TABLET Fluticasone Propionate 16 Gm [place].susp, 1 SPRAY NSEACH DAILY, (Reported) LAST FILLED 06/28/17 #16GM Hydrochlorothiazide 25 Mg Tablet, 25 MG PO DAILY, (Reported) Hydrocodone Bit/Acetaminophen 1 Each Tablet, 1 TAB PO TID PRN for PAIN-MODERATE, (Reported) Metronidazole 500 Mg Tablet, 500 MG PO Q12H, (Reported) FILLED 09/06/17 #14 FOR A 7 DAY THERAPY Montelukast Sodium 10 Mg Tablet, 10 MG PO HS, (Reported) LAST FILLED 08/08/17 #30 Sucralfate 1 Gm Tablet, 1 GM PO ACHS PRN for STOMACH UPSET, (Reported) Patient Home Medication List Home Medication List Reviewed: Yes Review of Systems Constitutional: see HPI EENTM: No Symptoms Reported Respiratory: No Symptoms Reported Gastrointestinal: See HPI, Abdominal Pain, Nausea; Denies Vomiting Genitourinary: No Symptoms Reported Musculoskeletal: no symptoms reported Skin: no symptoms reported Psychiatric/Neurological: No Symptoms Reported Endocrine: No Symptoms Reported Past Fkzusxa-Rvgzpz-Rpompi Hx Patient Social History Alcohol Beverage of Choice: Beer Type Used: Cigars Recent Foreign Travel: No Contact w/Someone Who Travel: No Recent Hopitalizations: No Immunizations Up To Date Tetanus Booster (TDap): More than 5yrs PED Vaccines UTD: Yes Seasonal Allergies Seasonal Allergies: Yes (MILD) Past Medical History Surgeries: Yes (WART REMOVALS; "CYST" REMOVALS FROM SKIN OF VARIOUS PARTS OF BODY) Gallbladder Respiratory: Yes Asthma Currently Using CPAP: No Currently Using BIPAP: No Cardiac: Yes (SWELLING AT TIMES) Chronic Edema/Swelling, Hypertension Neurological: Yes Headaches /Migraines Reproductive Disorders: Yes Female Reproductive Disorders: Menstrual Problems, Polycystic Ovarian Dis Sexually Transmitted Disease: No HIV/AIDS: No Genitourinary: No Gastrointestinal: Yes (SANTORO DISEASE-FATTY LIVER) Colitis, Gastroesophageal Reflux, Diverticulosis, Ulcer Musculoskeletal: Yes (CHRONIC BILATERAL KNEE PAIN, chostrochrondritis) Chronic Back Pain Endocrine: Yes ("PRE" DIABETIC--DOES NOT CHECK BLOOD SUGAR; OBESITY) Diabetes, Non-Insulin dep Loss of Vision: Bilateral Hearing Impairment: Denies Cancer: No Did You Recieve Any Treatments: No Psychosocial: Yes Sleep Difficulties, Depression Integumentary: No Blood Disorders: No Adverse Reaction/Blood Tranf: No Family Medical History Alcoholism 19 FATHER 19 MOTHER Arthritis 19 MOTHER Asthma 19 MOTHER Cancer of mouth 19 FATHER Cataracts 19 MOTHER Dementia 19 MOTHER Diabetes mellitus Drug abuse 19 FATHER 19 MOTHER Fibrocystic disease of breast 19 MOTHER Headache disorder 19 MOTHER G8 SISTER Hypertension 19 MOTHER Respiratory disorder 19 FATHER 19 MOTHER No Pertinent Family Hx Physical Exam Vital Signs Vital Signs - First Documented 03/31/18 10:55 Temp 97.4 Pulse 104 Resp 18 B/P (MAP) 171/104 (126) Pulse Ox 97 O2 Delivery Room Air Capillary Refill : General Appearance: WD/WN, no apparent distress, obese HEENT: PERRL/EOMI, normal ENT inspection Respiratory: no respiratory distress, no accessory muscle use Gastrointestinal: normal bowel sounds, soft; No distended, No guarding, No rebound; tenderness (Left lower quadrant) Extremities: normal range of motion, non-tender Neurologic/Psychiatric: alert, normal mood/affect, oriented x 3 Skin: normal color, warm/dry Progress/Results/Core Measures Results/Orders Lab Results Laboratory Tests Test 03/31/18 11:22 03/31/18 11:30 Range/Units Urine Color YELLOW Urine Clarity CLEAR Urine pH 6 5-9 Urine Specific [place] 1.015 L 1.016-1.022 Urine Protein 1+ H NEGATIVE Urine Glucose (UA) NEGATIVE NEGATIVE Urine Ketones NEGATIVE NEGATIVE Urine Nitrite NEGATIVE NEGATIVE Urine Bilirubin NEGATIVE NEGATIVE Urine Urobilinogen NORMAL NORMAL MG/DL Urine Leukocyte Esterase 2+ H NEGATIVE Urine RBC (Auto) 4+ H NEGATIVE Urine RBC 5-10 H /HPF Urine WBC 2-5 /HPF Urine Squamous Epithelial Cells 2-5 /HPF Urine Crystals NONE /LPF Urine Bacteria FEW H /HPF Urine Casts NONE /LPF Urine Mucus NEGATIVE /LPF Urine Culture Indicated YES White Blood Count 15.0 H 4.3-11.0 10^3/uL Red Blood Count 4.83 4.35-5.85 10^6/uL Hemoglobin 15.0 11.5-16.0 G/DL Hematocrit 44 35-52 % Mean Corpuscular Volume 91 80-99 FL Mean Corpuscular Hemoglobin 31 25-34 PG Mean Corpuscular Hemoglobin Concent 34 32-36 G/DL Red Cell Distribution Width 13.6 10.0-14.5 % Platelet Count 283 130-400 10^3/uL Mean Platelet Volume 10.8 H 7.4-10.4 FL Neutrophils (%) (Auto) 78 H 42-75 % Lymphocytes (%) (Auto) 13 12-44 % Monocytes (%) (Auto) 8 0-12 % Eosinophils (%) (Auto) 1 0-10 % Basophils (%) (Auto) 0 0-10 % Neutrophils # (Auto) 11.8 H 1.8-7.8 X 10^3 Lymphocytes # (Auto) 1.9 1.0-4.0 X 10^3 Monocytes # (Auto) 1.1 H 0.0-1.0 X 10^3 Eosinophils # (Auto) 0.2 0.0-0.3 10^3/uL Basophils # (Auto) 0.0 0.0-0.1 10^3/uL Neutrophils % (Manual) 78 % Lymphocytes % (Manual) 15 % Monocytes % (Manual) 6 % Eosinophils % (Manual) 1 % Basophils % (Manual) 0 % Band Neutrophils 0 % Blood Morphology Comment NORMAL Sodium Level 138 135-145 MMOL/L Potassium Level 4.0 3.6-5.0 MMOL/L Chloride Level 107 98-107 MMOL/L Carbon Dioxide Level 23 21-32 MMOL/L Anion Gap 8 5-14 MMOL/L Blood Urea Nitrogen 6 L 7-18 MG/DL Creatinine 0.58 L 0.60-1.30 MG/DL Estimat Glomerular Filtration Rate > 60 BUN/Creatinine Ratio 10 Glucose Level 108 H 70-105 MG/DL Calcium Level 8.3 L 8.5-10.1 MG/DL Total Bilirubin 0.7 0.1-1.0 MG/DL Aspartate Amino Transf (AST/SGOT) 19 5-34 U/L Alanine Aminotransferase (ALT/SGPT) 28 0-55 U/L Alkaline Phosphatase 87 40-136 U/L Total Protein 6.0 L 6.4-8.2 GM/DL Albumin 3.9 3.2-4.5 GM/DL My Orders Orders - AMY BENSON APRN Cbc With Automated Diff (03/31/18 11:07) Comprehensive Metabolic Panel (03/31/18 11:07) Ua Culture If Indicated (03/31/18 11:07) Urine Bedside (03/31/18 11:07) Gc-Qdwyobh-Xznhgo (Order) (03/31/18 11:07) Ct Abdomen/Pelvis W (03/31/18 11:07) Ns Iv 1000 Ml (Sodium Chloride 0.9%) (03/31/18 11:15) Ketorolac Injection (Toradol Injection) (03/31/18 11:15) Ondansetron Injection (Zofran Injectio (03/31/18 11:15) Iohexol Injection (Omnipaque 350 Mg/Ml 1 (03/31/18 11:30) Sodium Chloride Flush (Catheter Flush Sy (03/31/18 11:30) Ns (Ivpb) (Sodium Chloride 0.9%) (03/31/18 11:30) Pharmacy Communication (Pharmacy Communi (03/31/18 11:22) Manual Differential (03/31/18 11:30) Urine Culture (03/31/18 11:22) Levofloxacin Tablet (Levaquin Tablet) (03/31/18 13:00) Metronidazole 500mg/100ml Ivpb (Flagyl 5 (03/31/18 13:00) Medications Given in ED Current Medications Medications Dose Ordered Sig/Nemo Route Start Time Stop Time Status Last Admin Dose Admin Iohexol 100 ml ONCE ONCE IV 03/31/18 11:30 03/31/18 11:31 DC 03/31/18 12:13 100 ML Ketorolac Tromethamine 30 mg ONCE ONCE IVP 03/31/18 11:15 03/31/18 11:16 DC 03/31/18 11:36 30 MG Ondansetron HCl 8 mg ONCE ONCE IVP 03/31/18 11:15 03/31/18 11:16 DC 03/31/18 11:36 8 MG Sodium Chloride 250 ml ONCE ONCE IV 03/31/18 11:30 03/31/18 11:31 DC 03/31/18 12:13 80 ML Vital Signs/I&O 03/31/18 10:55 Temp 97.4 Pulse 104 Resp 18 B/P (MAP) 171/104 (126) Pulse Ox 97 O2 Delivery Room Air Departure Communication (Admissions) NAME: RONA LONGO [facility] REC#: [id number] PT STATUS: REG ER : 1980 PHYSICIAN: AMY BENSON [facility] MANAGER ADMIT DATE: 03/31/18/ER Draft Date of Exam:03/31/18 CT ABDOMEN/PELVIS W PROCEDURE: CT abdomen and pelvis with contrast. TECHNIQUE: Multiple contiguous axial images were obtained through the abdomen and pelvis after administration of intravenous contrast. INDICATION: Diverticulitis. Left lower abdominal pain. COMPARISON: 09/12/2017 FINDINGS: Included portions of lung bases show small 4 mm subpleural micronodule within the posteromedial right base. This is stable when compared to 09/12/2017. CT abdomen: There is colonic diverticulosis. Additionally, there is moderate abnormal stranding of the pericolonic fat surrounding the sigmoid colon. Trace amount of free fluid is also noted. There is no free air nor loculated air-fluid collection. Additionally, there is no pneumatosis nor portal venous gas. Normal appendix is identified. Proximal portions of the large and small bowel are nondistended. Liver is diffusely hypodense on this postcontrast exam. Otherwise, the liver, kidneys, spleen, and pancreas have a normal CT appearance. Bilateral adrenal nodules are again identified and measure 1.8 x 1.8 cm on the right and 2.1 x 1.8 cm on the left. This is not significantly changed when compared to 1.7 x 1.7 cm and 2 x 1.7 cm on exam dated 09/05/2016. No abnormal mesenteric or retroperitoneal adenopathy is seen. Bony structures show no acute abnormalities. CT pelvis: Urinary bladder is grossly unremarkable. Again, there is abnormal appearance to the sigmoid colon and perisigmoidal fat with small amount of free fluid in the pelvis. There is no loculated air-fluid collection or free air. No abnormal lymph nodes are identified. Bony structures show no acute abnormalities. IMPRESSION: 1. Colonic diverticulosis with probable acute diverticulitis involving the sigmoid colon. Please note, colonic malignancy may also present in a similar manner. Correlation with colonoscopy is recommended when clinically appropriate. 2. Small amount of free fluid within the pelvis, but no loculated air-fluid collection to suggest abscess. 3. Stable bilateral adrenal adenomas. 4. Stable micronodule within the right lung base. Dictated on workstation # [id number] Dict: 03/31/18 1257 Trans: 03/31/18 1312 KENDY [id number] Interpreted by: MAI IVAN MD Electronically signed by: Impression Primary Impression: Sigmoid diverticulitis Disposition: HOME, SELF-CARE Condition: Stable Departure-Patient Inst. Decision time for Depature: 12:49 Referrals: CORBY WALTERS DO (PCP) Primary Care Physician NUZHAT FRANKS (Family) Primary Care Physician Patient Instructions: Diverticulitis (DC) Add. Discharge Instructions: 1. Return to ER for any high fevers, worsening pain, nausea that prevents you from taking your antibiotics 2. Follow-up with your doctor on Tuesday for recheck. Scripts Ondansetron (Zofran Odt) 8 Mg Tab.rapdis 8 MG PO Q6H PRN for NAUSEA/VOMITING-1ST LINE, #10 TAB Prov: AMY BENSON CARE C[facility] MANAGER 03/31/18 Hydrocodone/Acetaminophen ([place] 5-325 Tablet) 1 Each Tablet 1 EACH PO Q4M PRN for PAIN-SEVERE, #14 TAB Prov: AMY BENSON CARE C[facility] MANAGER 03/31/18 Metronidazole (Metronidazole) 500 Mg Tablet 500 MG PO TID, #21 TAB Prov: AMY BENSON CARE C[facility] MANAGER 18 Ciprofloxacin HCl (Cipro) 500 Mg Tablet 500 MG PO BID, #14 TAB Prov: AMY BENSON APRN 03/31/18 Work/School Note: Work Release Form Date Seen in the Emergency Department: March 31, 2018 Return to Work: April 04, 2018 Copy Copies To 1: CORBY WALTERS PETER J APRN March 31, 2018 11:07
[2018-03-31] MEDS ORDERED: NS IV 1000 ML 1,000 ML IV SCH (11:15)
[2018-03-31] MEDS ORDERED: ONDANSETRON 4 MG/2 ML (SDV) Z0FRAN IVP ONE (11:15)
[2018-03-31] MEDS ORDERED: KETOROLAC 30 MG/ML VIAL IVP ONE (11:15)
[2018-03-31 11:28] LABS: BILIRUBIN,URINE NEGATIVE (NEGATIVE); CLARITY,URINE CLEAR; COLOR,URINE YELLOW; GLUCOSE, URINE (UA) NEGATIVE (NEGATIVE); KETONES,URINE NEGATIVE (NEGATIVE); LEUKOCYTE ESTERASE ,URINE 2+ (NEGATIVE); NITRITE,URINE NEGATIVE (NEGATIVE); PH,URINE 6 (5-9); PROTEIN,URINE 1+ (NEGATIVE); UROBILINOGEN,URINE NORMAL (NORMAL)
[2018-03-31] MEDS ORDERED: CATHETER FLUSH 10 ML SYR IV PRN (11:30)
[2018-03-31] MEDS ORDERED: NS 250 ML (IVPB) BAG IV ONE (11:30)
[2018-03-31] MEDS ORDERED: IOHEXOL 350 MG/ML 100 ML (OMNIPAQUE 350) VIAL IV ONE (11:30)
[2018-03-31 11:38] LABS: BASOPHILS % (AUTO) 0 % (0-10); EOSINOPHILS # (AUTO) 0.2 10^3/uL (0.0-0.3); EOSINOPHILS % (AUTO) 1 % (0-10); HEMATOCRIT 44 % (35-52); LYMPHOCYTES # (AUTO) 1.9 X 10^3 (1.0-4.0); LYMPHOCYTES % (AUTO) 13 % (12-44); MEAN CORPUSCULAR HEMOGLOBIN 31 PG (25-34); MEAN CORPUSCULAR HGB CONC 34 G/DL (32-36); MEAN CORPUSCULAR VOLUME 91 FL (80-99); MEAN PLATELET VOLUME 10.8 FL (7.4-10.4); MONOCYTES # (AUTO) 1.1 X 10^3 (0.0-1.0); MONOCYTES % (AUTO) 8 % (0-12); NEUTROPHILS # (AUTO) 11.8 X 10^3 (1.8-7.8); NEUTROPHILS % (AUTO) 78 % (42-75); PLATELET COUNT 283 10^3/uL (130-400); RED BLOOD COUNT 4.83 10^6/uL (4.35-5.85); RED CELL DISTRIBUTION WIDTH 13.6 % (10.0-14.5)
[2018-03-31 11:43] LABS: BACTERIA,URINE FEW /HPF
[2018-03-31 12:01] LABS: ALANINE AMINOTRANSFERASE 28 U/L (0-55); ALBUMIN 3.9 GM/DL (3.2-4.5); ALKALINE PHOSPHATASE 87 U/L (40-136); BILIRUBIN,TOTAL 0.7 MG/DL (0.1-1.0); BUN/CREATININE RATIO 10; CALCIUM 8.3 MG/DL (8.5-10.1); CARBON DIOXIDE 23 MMOL/L (21-32); CHLORIDE 107 MMOL/L (98-107); CREATININE SERUM 0.58 MG/DL (0.60-1.30); GFR ESTIMATED > 60; GLUCOSE 108 MG/DL (70-105); SODIUM 138 MMOL/L (135-145)
[2018-03-31 12:08] LABS: BAND NEUTROPHILS 0 %; BASOPHILS % (MANUAL) 0 %; EOSINOPHILS % (MANUAL) 1 %; LYMPHOCYTES % (MANUAL) 15 %; MONOCYTES % (MANUAL) 6 %; NEUTROPHILS % (MANUAL) 78 %; RBC MORPH NORMAL
[2018-03-31] MEDS ORDERED: LEVOFLOXACIN 500 MG TAB (LEVAQUIN) PO ONE (13:00)
[2018-03-31] MEDS ORDERED: metroNIDAZOLE 500MG/100ML IVPB 100 ML IV ONE (13:00)
--- NOTE | 2018-03-31 13:12 | Diagnostic Imaging Report ---
PROCEDURE: CT abdomen and pelvis with contrast. TECHNIQUE: Multiple contiguous axial images were obtained through the abdomen and pelvis after administration of intravenous contrast. INDICATION: Diverticulitis. Left lower abdominal pain. COMPARISON: 09/12/2017 FINDINGS: Included portions of lung bases show small 4 mm subpleural micronodule within the posteromedial right base. This is stable when compared to 09/12/2017. CT abdomen: There is colonic diverticulosis. Additionally, there is moderate abnormal stranding of the pericolonic fat surrounding the sigmoid colon. Trace amount of free fluid is also noted. There is no free air nor loculated air-fluid collection. Additionally, there is no pneumatosis nor portal venous gas. Normal appendix is identified. Proximal portions of the large and small bowel are nondistended. Liver is diffusely hypodense on this postcontrast exam. Otherwise, the liver, kidneys, spleen, and pancreas have a normal CT appearance. Bilateral adrenal nodules are again identified and measure 1.8 x 1.8 cm on the right and 2.1 x 1.8 cm on the left. This is not significantly changed when compared to 1.7 x 1.7 cm and 2 x 1.7 cm on exam dated 09/05/2016. No abnormal mesenteric or retroperitoneal adenopathy is seen. Bony structures show no acute abnormalities. CT pelvis: Urinary bladder is grossly unremarkable. Again, there is abnormal appearance to the sigmoid colon and perisigmoidal fat with small amount of free fluid in the pelvis. There is no loculated air-fluid collection or free air. No abnormal lymph nodes are identified. Bony structures show no acute abnormalities. IMPRESSION: 1. Colonic diverticulosis with probable acute diverticulitis involving the sigmoid colon. Please note, colonic malignancy may also present in a similar manner. Correlation with colonoscopy is recommended when clinically appropriate. 2. Small amount of free fluid within the pelvis, but no loculated air-fluid collection to suggest abscess. 3. Stable bilateral adrenal adenomas. 4. Stable micronodule within the right lung base. Dictated by: Dictated on workstation # [id number]
[2018-03-31] MEDS ORDERED: METR500T21 PO (13:22)
[2018-03-31] MEDS ORDERED: ONDA8TAB9 PO (13:22)
[2018-03-31] MEDS ORDERED: HYDR-757 PO (13:22)
[2018-03-31] MEDS ORDERED: CIPR-225 PO (13:22)
[2018-03-31] MEDS ORDERED: fentaNYL INJECTION 100 MCG/2 ML AMP IVP ONE (13:45)
[2018-03-31 14:39] VITALS: BP 184/114
== END 2018-03-31 14:44 | disposition home or self-care (01) ==
LOC: EDUNIT# 10:34 → ER 10:35
DX: K57.32 Diverticulitis of large intestine without perforation or abscess without bleeding (principal); J45.909 Unspecified asthma, uncomplicated; I10 Essential (primary) hypertension; G43.909 Migraine, unspecified, not intractable, without status migrainosus; K21.9 Gastro-esophageal reflux disease without esophagitis; E66.9 Obesity, unspecified; E11.9 Type 2 diabetes mellitus without complications; F32.9 Major depressive disorder, single episode, unspecified; Z87.19 Personal history of other diseases of the digestive system; Z87.448 Personal history of other diseases of urinary system; Z88.6 Allergy status to analgesic agent; Z79.51 Long term (current) use of inhaled steroids; Z68.43 Body mass index [BMI] 50.0-59.9, adult
CPT/HCPCS: 36415; 74177; 80053; 81000; 84703; 85007; 85027; 87088; 96361; 96365; 96375

== ENCOUNTER → 2018-08-04 | Outpatient (CLI) | payer SELFPAY ==
[~2018-08-04] MED LIST changes: +CLON1TAB13 PO; -CLON1TAB3 PO; +HYDR-4226 PO; +METF-397 PO; -METF500T5 PO; +ONDA8TAB9 PO
== END ==
LOC: CARD 07:34
PROVIDERS: ATTEND Nurse Practitioner Family
DX: I10 Essential (primary) hypertension (principal); R07.89 Other chest pain; R06.09 Other forms of dyspnea
CPT/HCPCS: 93306

== ENCOUNTER → 2018-08-08 | Outpatient (CLI) | payer SELFPAY ==
[~2018-08-08] VITALS: Ht 162.6 cm; Wt 129.3 kg
[~2018-08-08] MED LIST changes: +REGADENOSON 0.4 MG/5 ML SYR (LEXISCAN) IV ONE
[2018-08-08] MEDS: CATHETER FLUSH 10 ML SYR IV PRN ×2 (08:44→09:55)
[2018-08-08 09:52] VITALS: BP 194/94
--- NOTE | 2018-08-10 10:17 | STRESS TEST ---
DATE OF SERVICE: 08/08/2018 PROCEDURE: Resting and post regadenoson technetium-99m Tetrofosmin SPECT CT imaging. ORDERING PHYSICIAN: Sofía Martines APRN PRIMARY PHYSICIAN: Dr. Hurtado. OTHER PHYSICIAN: MARGARETTE Tracey. CLINICAL DIAGNOSIS: Chest discomfort, shortness of breath. Baseline images were carried out after injection of 9.94 mCi technetium-99m Tetrofosmin. This was followed by 0.4 mg regadenoson and 31.9 mCi of technetium-99m Tetrofosmin for stress imaging. The electrocardiogram showed sinus rhythm at baseline and it did not change significantly with the regadenoson infusion. The patient tolerated the procedure well. Review of images at rest and following stress does not indicate any distinct perfusion defects consistent with significant myocardial ischemia or infarction. Some degree of breast attenuation is seen involving the anterior wall, both at rest and following regadenoson infusion. Gated images showed normal global left ventricular systolic function and normal regional wall motion. Left ventricular ejection fraction is calculated to be 67%. Left ventricular end diastolic volume is 66 mL. TID is absent (0.97). CONCLUSIONS: 1. No evidence of significant myocardial ischemia or infarction on this study. 2. Normal regional wall motion. 3. Normal global left ventricular systolic function with a calculated ejection fraction of 67%. Job ID: [id number] DocumentID: [id number] Dictated Date: 08/10/2018 09:55:19 Station Installer And Repairer Date: 08/10/2018 10:17:05 Dictated By: AMANDO GREGG MD, MA, FACP, FACC,
== END ==
LOC: CARD 08:33
PROVIDERS: ATTEND Nurse Practitioner Family
DX: I10 Essential (primary) hypertension (principal); R07.89 Other chest pain; R06.09 Other forms of dyspnea
CPT/HCPCS: 78452; 93017

== ENCOUNTER 2018-09-26 10:05 | Emergency (ER) | payer SELFPAY ==
[~2018-09-26] VITALS: Ht 162.6 cm; Wt 127.0 kg
[~2018-09-26 10:05] MED LIST changes: +METR-197 PO; -METR500T21 PO; -REGADENOSON 0.4 MG/5 ML SYR (LEXISCAN) IV ONE
--- OUTSIDE RECORDS SUMMARY | 2018-09-26 10:52 | XMS REPORT ---
Author Author NUZHAT FRANKS [facility] Address [address] [place] [address] Care Team Providers Care Lens Grinder Rough Name Role Phone NUZHAT FRANKS Unavailable PROBLEMS Type Condition ICD9-CM Code BNA78-HD Code Onset Dates Condition Status SNOMED Code Problem RUQ abdominal pain R10.11 Active 535920210 Problem Lumbago with sciatica, right side M54.41 Active 018671117 Problem Diverticulitis of large intestine, unspecified bleeding status, unspecified complication status K57.32 Active 0761045 Problem Dysthymia F34.1 Active 16017004 Problem BMI 45.0-49.9, adult Z68.42 Active 619055146 Problem Tobacco abuse Z72.0 Active 999323304 Problem Other chronic pain G89.29 Active 57689845 Problem Sleep apnea, unspecified type G47.30 Active 79377354 Problem Morbid obesity E66.01 Active 784246793 Problem CAP (community acquired pneumonia) J18.9 Active 894832726 Problem Essential (primary) hypertension I10 Active 18483162 Problem Diverticulitis of large intestine without perforation or abscess without bleeding K57.32 Active 6225621 Problem Insomnia, unspecified type G47.00 Active 175661923 Problem Anxiety F41.9 Active 94296859 Problem Migraine with aura and without status migrainosus, not intractable G43.109 Active 8250452 Problem Elevated LDL cholesterol level E78.0 Active 694789006 Problem Biliary dyskinesia K82.8 Active 401886808 ALLERGIES Substance Reaction Event Type Date Status Lisinopril cough Drug Allergy Jun, Active BuSpar suicidal thoughts, increased anxiety Drug Allergy Jun, Active ENCOUNTERS Encounter Location Date Diagnosis [facility] [address] [id number] [place] [id number] Aug, [facility] [address] [facility] [id number] [place] [id number] Jul, Lumbago with sciatica, right side M54.41 and Dysthymia F34.[address] [place] [address] [id number] Jul, BMI 45.0-49.9, adult Z68.42 ; Dysthymia F34.1 ; Lumbago with sciatica, right side M54.41 and Essential (primary) hypertension I10 [place] [id number] [place] [address] [id number] Jun, BMI 45.0-49.9, adult Z68.42 ; Essential (primary) hypertension I10 ; Dysthymia F34.1 ; Lumbago with sciatica, right side M54.41 and Mild intermittent asthma with acute exacerbation J45.21 [place] [id number] [place] [address] [id number] Jun, [facility] [id number] [place] [address] Jun, Chest congestion R09.89 ; Cough R05 and BMI 45.0-49.9, adult Z68.[address] [id number] [place] [id number] Jun, Dental examination Z01.20 [place] [id number] [place] [address] [id number] May, Essential (primary) hypertension I10 ; Lumbago with sciatica, right side M54.41 ; Anxiety F41.9 and BMI 45.0-49.9, adult Z68.[address] [id number] [place] [id number] May, Essential (primary) hypertension I10 ; Other chest pain R07.89 ; Dyspnea on exertion R06.09 ; Tobacco abuse Z72.0 ; Sleep apnea, unspecified type G47.30 ; BMI 45.0-49.9, adult Z68.42 and Morbid obesity E66.01 [facility] [place] [facility] [address]005[address], [place] [address] May, BMI 45.0-49.9, adult Z68.42 [facility] [place] [id number] [place] [id number] May, BMI 45.0-49.9, adult Z68.42 ; Lumbago with sciatica, right side M54.41 ; Anxiety F41.9 and Essential (primary) hypertension I10 [facility] [address]00565[address], [place] [address] Apr, [facility] [place] [id number] [place] [address] [id number] Apr, Anxiety F41.9 [facility] [place] [id number] [place] [address] [id number] Apr, Anxiety F41.9 [facility] [place] [id number] [place] [address] [id number] Apr, [facility] [address] [id number] [place] [id number] Apr, Dental examination Z01.20 [facility] [place] [id number] [place] [address] [id number] Apr, Anxiety F41.9 [facility] [place] [id number] [place] [address] [id number] Apr, Anxiety F41.9 and Lumbago with sciatica, right side M54.41 [facility] [id number] [place] [address] [id number] March, Anxiety F41.9 [facility] [id number] [place] [address] [id number] March, Diverticulitis of large intestine, unspecified bleeding status, unspecified complication status K57.32 ; Anxiety F41.9 and Essential (primary) hypertension I10 [facility] [place] [id number] [place] [address] [id number] March, RUQ abdominal pain R10.11 [facility] [address], [place] [address] 18 Feb, 2018 Wheezing on auscultation R06.2 [facility] [id number] [place] [address] [id number] Feb, Anxiety F41.9 [facility] [address] [id number] [place] [id number] Feb, [facility] [id number] [place] [address] [id number] Jan, BMI 50.0-59.9, adult Z68.43 ; Anxiety F41.9 ; Chest pain, unspecified type R07.9 and Essential (primary) hypertension I10 [address] [id number] [place] [id number] Jan, BMI 45.0-49.9, adult Z68.42 ; Morbid obesity E66.01 ; Chest pain, non-cardiac R07.89 ; Anxiety F41.9 ; Essential (primary) hypertension I10 and Tobacco abuse Z72.[address] [id number] [place] [id number] Jan, Essential (primary) hypertension I10 [address]100[place] [id number] Dec, Essential (primary) hypertension I10 ; Migraine with aura and without status migrainosus, not intractable G43.109 ; Viral syndrome B34.9 and Lumbago with sciatica, right side M54.41 [address]005[address]100[place] [id number] Nov, BMI 45.0-49.9, adult Z68.42 ; Migraine with aura and without status migrainosus, not intractable G43.109 and Essential (primary) hypertension I10 [facility] [address] [id number] [place] [id number] Nov, Essential (primary) hypertension I10 [facility] [address] [id number] [place] [id number] Nov, BMI 45.0-49.9, adult Z68.42 ; Essential (primary) hypertension I10 ; Anxiety F41.9 ; Lumbago with sciatica, right side M54.41 and Other chronic pain G89.29 [facility] [address] [place] [address] [id number] Nov, [facility] [id number] [place] [id number] Aug, RUQ abdominal pain R10.11 [facility] [id number] CREEK[place] [id number] Aug, Essential (primary) hypertension I10 and Anxiety F41.9 [facility] [id number] [place]REEK[place] [id number] May, Essential (primary) hypertension I10 and Anxiety F41.9 [facility] [id number] [place]REEK[place] [id number] March, Diverticulitis of large intestine, unspecified bleeding status, unspecified complication status K57.32 [facility] [address]00565100[place], [place] [address] March, [facility] [id number] [place]REEK[place] [id number] March, [facility] [id number] [place] [address] [id number] March, Chest wall pain R07.89 and Dysuria R30.0 [facility] [id number] [place] [address] [id number] March, Anxiety F41.9 [facility] [id number] [place] [address] [id number] Feb, Biliary dyskinesia K82.8 [facility] [id number] [place]REEK[place] [id number] Feb, Biliary dyskinesia K82.8 [facility] [id number] [place]REEK[place] [id number] Jan, Essential (primary) hypertension I10 and RUQ abdominal pain R10.11 [facility] [id number] [place] [address] [id number] Jan, Essential (primary) hypertension I10 and Anxiety F41.9 [facility] [id number] [place]REEK[place] [id number] Dec, Essential (primary) hypertension I10 [facility] [id number] [place] [address] [id number] Nov, Migraine with aura and without status migrainosus, not intractable G43.109 and Essential (primary) hypertension I10 [facility] [id number] [place] [address] [id number] Nov, Anxiety F41.9 ; Migraine with aura and without status migrainosus, not intractable G43.109 and Insomnia, unspecified type G47.00 [facility] [id number] [place] [address] [id number] Oct, Migraine with aura and without status migrainosus, not intractable G43.109 [facility] [id number] [place] [address] [id number] Oct, Anxiety F41.9 and Essential (primary) hypertension I10 [place] [address] [address] Oct, [facility] [place] [facility] [address] [address] Sep, [facility] [id number] [place] [address] [id number] Sep, Diverticulitis of large intestine without perforation or abscess without bleeding K57.32 and Anxiety F41.9 [facility] [id number] [place] [address] [id number] Aug, Diverticulitis of large intestine without perforation or abscess without bleeding K57.32 [place] [address] [address] Aug, [facility] [id number] [place] [address] [id number] Aug, [facility] [place] [facility] [address] [id number] Aug, [facility] [id number] [place] [address] [id number] Aug, [facility] [id number] [place] [address] [id number] Jul, Ingrown left big toenail L60.[address] [place] [address] [id number] Jul, [place] [id number] [place] [address] [id number] Jul, Ingrowing toenail of right foot L60.0 [address] [place] [address] [id number] Apr, [place] [address] [place] [address] [id number] Apr, RUQ abdominal pain R10.11 ; Fatty liver disease, nonalcoholic K76.0 ; Hx of hyperglycemia Z86.39 ; Elevated alanine aminotransferase (ALT) level R74.0 ; Elevated LDL cholesterol level E78.0 and Prediabetes R73.[address] [place] [address] [id number] Apr, RUQ abdominal pain R10.11 ; Mild persistent asthma without complication J45.30 ; Anxiety F41.9 and Essential (primary) hypertension I10 [place] [address] [place] [address] [id number] March, Wheezing R06.2 and Cough R05 [place] [id number] [place] [address] [id number] March, [place] [id number] [place] [address] [id number] March, [place] [address] [place] [address] [id number] March, Acute severe exacerbation of asthma J45.51 ; Cough R05 and Cough headache G44.83 [place] [id number] [place] [address] [id number] 18 Feb, 2016 Mild intermittent asthma with acute exacerbation J45.21 and Transient insomnia F51.02 [place] [address] [place] [address] [id number] Feb, Pigmented skin lesion of uncertain nature L81.9 [address] [place] [address] [id number] Feb, Anxiety F41.9 and Essential (primary) hypertension I10 [place] [id number] [id number] 31 Jan, 2016 [facility] [id number] [place] [id number] 23 Jan, 2016 Routine gynecological examination Z01.419 and Encounter for Papanicolaou smear for cervical cancer screening Z12.4 [facility] [address] [place] [id number] [place] [id number] 07 Jan, 2016 Essential (primary) hypertension I10 and Anxiety F41.9 [facility] [address] [place] [address] [id number] 10 Dec, 2015 Essential (primary) hypertension I10 and Anxiety F41.9 [address] [place] [address] [id number] Nov, Essential (primary) hypertension I10 [facility] [address] [id number] [place] [id number] Aug, [facility] [address] [place] [address] [id number] Aug, CAP (community acquired pneumonia) J18.9 [facility] 120 [facility] [id number] [place] [address] [id number] Aug, CAP (community acquired pneumonia) J18.9 [facility] [address] [id number] [place] [id number] Aug, CAP (community acquired pneumonia) J18.9 [place] [id number] [place] [address] [id number] Aug, CAP (community acquired pneumonia) J18.9 and Essential (primary) hypertension I10 [address] [id number] CREEK[place] [id number] Aug, CAP (community acquired pneumonia) J18.9 [facility] [place] [facility] [id number] [place] [address] [id number] [address] Apr, [facility] [place] [facility] [id number] [place] [address] [id number]- [address] Feb, [facility] [place] [facility] [address] [id number]- [address] Feb, [facility] [place] [address] [id number] [place] [id number] Jan, [facility] [place] [facility] [address] [facility] [id number] [place] [address] Jan, [facility] [place] [facility] [address] [facility] [id number], [place] [address] Nov, [facility] [place] [address] [facility] [id number] [place]REEK[place] [id number] Nov, [facility] [place] [facility] [address] [facility] [id number], [place] [address] Nov, [facility] [address] [id number] [place] [id number] Oct, [facility] [place] [facility] [address]65[address], [place] [address] Oct, [facility] [place] [address] [facility] [id number] [place] [id number] Sep, [facility] [place] [facility] [address], [place] [address] Sep, [facility] [place] [address] [facility] [id number] [place]REEK[place] [id number] Jun, [facility] [place] [facility] [address], [place] [address] Jun, [facility] [address] [facility] [id number] [place] [id number] Jun, [facility] [place] [facility] [address] [facility] [id number], [place] [address] Jun, [facility] [place] [address] [id number] [place]REEK[place] [id number] May, [facility] [place] [facility] [address] [facility] [id number], [place] [address] May, [facility] [address] [facility] [id number] [place]REEK[place] [id number] Dec, [facility] [place] [facility] [address] [facility] [id number], [place] [address] Dec, [facility] [place] [address] [id number] [place] [id number] Feb, [facility] [place] [address] [id number] [place] [id number] Feb, [facility] [place] [address] [id number] [place] [id number] Feb, [facility] [address], [place] [address] 16 Feb, 2013 [facility] [place] [address] [id number] [place] [id number] Feb, [facility] [address] [id number] [place] [id number] 15 Feb, 2013 [facility] [address]00565[address], [place] [address] 14 Feb, 2013 [facility] [address] [id number], [place] [address] Feb, [facility] [address], [place] [address] Feb, [facility] [address] [id number] [place] [id number] Feb, [facility] [place] [address] [id number] [place] [id number] Feb, [facility] [address] [id number] [place] [id number] Jan, [facility] [address] [id number] [place] [id number] Nov, [facility] [address] [id number] [place] [id number] Nov, [facility] [address] [id number], [place] [address] Oct, [facility] [address] [id number], [place] [address] Apr, [facility] [address]65[address], [place] [address] Dec, [facility] [place] [facility] [address] [facility] [id number] [place] [address] Nov, [facility] [place] [facility] [address] [facility] [id number], [place] [address] Oct, [facility] [place] [facility] [address] [facility] [id number], [place] [address] Oct, [facility] [place] [facility] [address] [facility] [id number], [place] [address] Sep, [facility] [place] [facility] [address] [facility] [id number], [place] [address] Sep, [facility] [place] [facility] [address] [facility] [id number][place] [address] Sep, IMMUNIZATIONS No Known Immunizations SOCIAL HISTORY Never Assessed REASON FOR VISIT 1 month follow up on chronic pain managment. lynne Flores PLAN OF CARE Activity Details Follow Up 4 Weeks Reason:depression VITAL SIGNS Height 66 in 2018-07-26 Weight 288 lbs 2018-07-26 Temperature 98.1 degrees Fahrenheit 2018-07-26 Heart Rate 100 bpm 2018-07-26 Respiratory Rate 20 2018-07-26 BMI 46.48 kg/m2 2018-07-26 Blood pressure systolic 128 mmHg 2018-07-26 Blood pressure diastolic 74 mmHg 2018-07-26 MEDICATIONS Medication Instructions Dosage Frequency Start Date End Date Duration Status Losartan Potassium 50 MG Orally Once a day 1 tablet 24h Nov, Active Tramadol HCl 50 mg Orally 2 times a day must lasst 28 d 1 tablet as needed Apr, Active Clonazepam 1 MG Orally Once a day prn mustr last 28 day 1-2 tablet Jun, Active CompAir Nebulizer - as directed Feb, 5 days Active Aspir-81 81 MG Orally Once a day 1 tablet 24h Active Atenolol 100 mg Orally Once a day 1 tablet 24h Nov, Active Ibuprofen 800 MG Orally Three times a day 1 tablet with food or milk as needed 8h May, Active Albuterol Sulfate 108 (90 Base) mcg/act Inhalation every 8 hrs 2 puffs by Inhalation route every 4-6 hours as needed PRN cough or wheezing 8h May, Active Nitroglycerin 0.4 MG Active Fluoxetine HCl 40 mg Orally Once a day 1 capsule 24h Jun, Active RESULTS No Results PROCEDURES No Known procedures INSTRUCTIONS MEDICATIONS ADMINISTERED No Known Medications MEDICAL (GENERAL) HISTORY Type Description Date Medical History hypertension Medical History asthma Medical History CT 08/2016 ED-sigmoid diverticulitis, hepatic steatosis, stable bilateral low density adrenal adenomas Medical History GERD Medical History IBSD Medical History sleep apnea Surgical History cholecystectomy 03/24/17 Hospitalization History [facility] 08/2016 Hospitalization History Generalized anxiety disorder-[facility] 09/2016 Hospitalization History Diverticulitis-[facility] Left AMA 04/06/17 Hospitalization History ER visit for migraine 08/2017 Hospitalization History ER visit for chest pain 01/2018
--- OUTSIDE RECORDS SUMMARY | 2018-09-26 10:52 | XMS REPORT ---
Author Author NUZHAT FRANKS [facility] Address [address] [place] [address] Care Team Providers Care Formula Technician Name Role Phone NUZHAT FRANKS Unavailable PROBLEMS Type Condition ICD9-CM Code QMM13-UE Code Onset Dates Condition Status SNOMED Code Problem RUQ abdominal pain R10.11 Active 348188705 Problem Lumbago with sciatica, right side M54.41 Active 606133222 Problem Diverticulitis of large intestine, unspecified bleeding status, unspecified complication status K57.32 Active 2436794 Problem Dysthymia F34.1 Active 97834152 Problem BMI 45.0-49.9, adult Z68.42 Active 265484256 Problem Tobacco abuse Z72.0 Active 560826864 Problem Other chronic pain G89.29 Active 64400032 Problem Sleep apnea, unspecified type G47.30 Active 60179249 Problem Morbid obesity E66.01 Active 575940395 Problem CAP (community acquired pneumonia) J18.9 Active 036071136 Problem Essential (primary) hypertension I10 Active 98159665 Problem Diverticulitis of large intestine without perforation or abscess without bleeding K57.32 Active 9641963 Problem Insomnia, unspecified type G47.00 Active 411488323 Problem Anxiety F41.9 Active 52407801 Problem Migraine with aura and without status migrainosus, not intractable G43.109 Active 7985548 Problem Elevated LDL cholesterol level E78.0 Active 850137669 Problem Biliary dyskinesia K82.8 Active 065074841 ALLERGIES No Information ENCOUNTERS Encounter Location Date Diagnosis [facility] [id number] [id number] Aug, [facility] [address] [facility] [id number] [place] [id number] Jul, Lumbago with sciatica, right side M54.41 and Dysthymia F34.1 [facility] [address] [id number] Jul, BMI 45.0-49.9, adult Z68.42 ; Dysthymia F34.1 ; Lumbago with sciatica, right side M54.41 and Essential (primary) hypertension I10 [facility] [address] [place] [address] [id number] Jun, BMI 45.0-49.9, adult Z68.42 ; Essential (primary) hypertension I10 ; Dysthymia F34.1 ; Lumbago with sciatica, right side M54.41 and Mild intermittent asthma with acute exacerbation J45.21 [facility] [id number] [place] [address] [id number] Jun, [facility] [address] [address] Jun, Chest congestion R09.89 ; Cough R05 and BMI 45.0-49.9, adult Z68.[address] [place] [address] [id number] Jun, Dental examination Z01.[address] [place] [address] [id number] May, Essential (primary) hypertension I10 ; Lumbago with sciatica, right side M54.41 ; Anxiety F41.9 and BMI 45.0-49.9, adult Z68.[id number] [place] [address] [id number] May, Essential (primary) hypertension I10 ; Other chest pain R07.89 ; Dyspnea on exertion R06.09 ; Tobacco abuse Z72.0 ; Sleep apnea, unspecified type G47.30 ; BMI 45.0-49.9, adult Z68.42 and Morbid obesity E66.01 [facility] [address] [id number] [address] May, BMI 45.0-49.9, adult Z68.42 [facility] [address] [place] [address] [id number] May, BMI 45.0-49.9, adult Z68.42 ; Lumbago with sciatica, right side M54.41 ; Anxiety F41.9 and Essential (primary) hypertension I10 [facility] [address] [address] Apr, [facility] [place] [id number] [place] [address] [id number] Apr, Anxiety F41.9 [facility] [place] [id number] [place] [address] [id number] Apr, Anxiety F41.9 [facility] [place] [id number] [place] [address] [id number] Apr, [facility] [place] [address] [facility] [address] [id number] [id number] Apr, Dental examination Z01.20 [facility] [place] [id number] [place] [address] [id number] Apr, Anxiety F41.9 [facility] [place] [address] [place] [address] [id number] Apr, Anxiety F41.9 and Lumbago with sciatica, right side M54.41 [facility] [place] [address] [place] [address] [id number] March, Anxiety F41.9 [facility] [place] [address] [place] [address] [id number] March, Diverticulitis of large intestine, unspecified bleeding status, unspecified complication status K57.32 ; Anxiety F41.9 and Essential (primary) hypertension I10 [facility] [place] [id number] [id number] March, RUQ abdominal pain R10.11 [facility] [address] [address] Feb, Wheezing on auscultation R06.2 [facility] [place] [id number] [place] [address] [id number] Feb, Anxiety F41.9 [facility] [place] [id number] [place] [address] [id number] Feb, [facility] [id number] [place] [address] [id number] Jan, BMI 50.0-59.9, adult Z68.43 ; Anxiety F41.9 ; Chest pain, unspecified type R07.9 and Essential (primary) hypertension I10 [address] [id number][place] [id number] Jan, BMI 45.0-49.9, adult Z68.42 ; Morbid obesity E66.01 ; Chest pain, non-cardiac R07.89 ; Anxiety F41.9 ; Essential (primary) hypertension I10 and Tobacco abuse Z72.0 [address] [place] [address] [id number] Jan, Essential (primary) hypertension I10 [address] [place] [address] [id number] Dec, Essential (primary) hypertension I10 ; Migraine with aura and without status migrainosus, not intractable G43.109 ; Viral syndrome B34.9 and Lumbago with sciatica, right side M54.41 [place] [id number] [place] [address] [id number] Nov, BMI 45.0-49.9, adult Z68.42 ; Migraine with aura and without status migrainosus, not intractable G43.109 and Essential (primary) hypertension I10 [facility] [address] [id number] Nov, Essential (primary) hypertension I10 [facility] [id number][place] [id number] Nov, BMI 45.0-49.9, adult Z68.42 ; Essential (primary) hypertension I10 ; Anxiety F41.9 ; Lumbago with sciatica, right side M54.41 and Other chronic pain G89.29 [facility] [address] [place] [address] [id number] Nov, [place] [id number] [place] [address] [id number] Aug, RUQ abdominal pain R10.11 [facility] [place] [id number] [place] [address] [id number] Aug, Essential (primary) hypertension I10 and Anxiety F41.9 [facility] [place] [id number] [place] [address] [id number] May, Essential (primary) hypertension I10 and Anxiety F41.9 [facility] [id number] [place] [address] [id number] March, Diverticulitis of large intestine, unspecified bleeding status, unspecified complication status K57.32 [facility] [id number] [place] [address] March, [facility] [address] [place] [address] [id number] March, [facility] [address] [place] [address] [id number] March, Chest wall pain R07.89 and Dysuria R30.0 [facility] [place] [address] [place] [address] [id number] March, Anxiety F41.9 [facility] [address] [place] [address] [id number] Feb, Biliary dyskinesia K82.8 [facility] [id number] [place] [address] [id number] Feb, Biliary dyskinesia K82.8 [facility] [address] [place] [address] [id number] Jan, Essential (primary) hypertension I10 and RUQ abdominal pain R10.11 [facility] [place] [id number] [place] [address] [id number] Jan, Essential (primary) hypertension I10 and Anxiety F41.9 [facility] [id number] [place] [address] [id number] Dec, Essential (primary) hypertension I10 [facility] [id number] [place] [address] [id number] Nov, Migraine with aura and without status migrainosus, not intractable G43.109 and Essential (primary) hypertension I10 [facility] [place] [address] [place] [address] [id number] Nov, Anxiety F41.9 ; Migraine with aura and without status migrainosus, not intractable G43.109 and Insomnia, unspecified type G47.00 [facility] [place] [address] [place] [address] [id number] Oct, Migraine with aura and without status migrainosus, not intractable G43.109 [facility] [place] [address] [place] [address] [id number] Oct, Anxiety F41.9 and Essential (primary) hypertension I10 [place] [address] [id number] Oct, [facility] [address] [address] Sep, [facility] [address] [id number] Sep, Diverticulitis of large intestine without perforation or abscess without bleeding K57.32 and Anxiety F41.9 [facility] [id number] [place] [address] [id number] Aug, Diverticulitis of large intestine without perforation or abscess without bleeding K57.32 [place] [address] [address] Aug, [facility] [id number] [place] [address] [id number] Aug, [facility] [address] [address]19587[address] Aug, [facility] [address] [place] [address] [id number] Aug, [facility] [address] [id number] Jul, Ingrown left big toenail L60.0 [place] [id number] [place] [address] [id number] Jul, [place] [id number] [place] [address] [id number] Jul, Ingrowing toenail of right foot L60.[address] [id number] Apr, [address] [id number] Apr, RUQ abdominal pain R10.11 ; Fatty liver disease, nonalcoholic K76.0 ; Hx of hyperglycemia Z86.39 ; Elevated alanine aminotransferase (ALT) level R74.0 ; Elevated LDL cholesterol level E78.0 and Prediabetes R73.09 [place] [id number] [place] [address] [id number] Apr, RUQ abdominal pain R10.11 ; Mild persistent asthma without complication J45.30 ; Anxiety F41.9 and Essential (primary) hypertension I10 [address] [id number] March, Wheezing R06.2 and Cough R05 [address] [id number] March, [place] [id number] [place] [address] [id number] March, [address] [id number] March, Acute severe exacerbation of asthma J45.51 ; Cough R05 and Cough headache G44.[address] [id number] 18 Feb, 2016 Mild intermittent asthma with acute exacerbation J45.21 and Transient insomnia F51.02 [place] [id number] [place] [address] [id number] Feb, Pigmented skin lesion of uncertain nature L81.9 [place] [id number] [place] [address] [id number] Feb, Anxiety F41.9 and Essential (primary) hypertension I10 [place] [id number] [place] [address] [id number] Jan, [address] [place] [id number] 23 Jan, 2016 Routine gynecological examination Z01.419 and Encounter for Papanicolaou smear for cervical cancer screening Z12.4 [facility] [id number] [place] [address] [id number] Jan, Essential (primary) hypertension I10 and Anxiety F41.9 [facility] [id number] [place] [address] [id number] 10 Dec, 2015 Essential (primary) hypertension I10 and Anxiety F41.9 [facility] [id number] [place] [address] [id number] Nov, Essential (primary) hypertension I10 [facility] [id number] [place] [address] [id number] Aug, [facility] [id number] [place] [address] [id number] Aug, CAP (community acquired pneumonia) J18.9 [facility] [id number] [place] [address] [id number] Aug, CAP (community acquired pneumonia) J18.9 [facility] [address] [place] [address] AVE [id number] [id number] Aug, CAP (community acquired pneumonia) J18.9 [facility] [id number] [place] [address] [id number] Aug, CAP (community acquired pneumonia) J18.9 and Essential (primary) hypertension I10 [facility] [address] [place] [address] [id number] Aug, CAP (community acquired pneumonia) J18.9 [facility] [address] [address] Apr, [facility] [id number] [place] [address] 14 Feb, 2015 [facility] [id number] [place] [address] Feb, [facility] [id number] [place] [address] [id number] Jan, [facility] [place] [facility] [address] [facility] [id number] [place] [address] Jan, [facility] [place] [facility] [address] [facility] [id number] [address] Nov, [facility] [place] [address] [id number] [place] [id number] Nov, [facility] [place] [facility] [address] [facility] [id number] [place] [address] Nov, [facility] [place] [address] [id number], [place] [id number] Oct, [facility] [place] [facility] [address] [facility] [id number] [place] [address] Oct, [facility] [place] [address] [facility] [id number][place] [id number] Sep, [facility] [place] [facility] [address] [address] Sep, [facility] [place] [address] [facility] [id number], [place] [id number] Jun, [facility] [place] [facility] [address] [facility] [id number] [place] [address] Jun, [facility] [place] [address] [facility] [id number], [place] [id number] Jun, [facility] [place] [facility] [address] [facility] [id number] [address] Jun, [facility] [place] [address] [id number][place] [id number] May, [facility] [place] [facility] [address] [facility] [id number] [place] [address] May, [facility] [place] [address] [facility] [id number][place] [id number] Dec, [facility] [place] [facility] [address] [facility] [id number] [place] [address] Dec, [facility] [place] [address] [id number], [place] [id number] Feb, [facility] [place] [address] [id number] [place] [id number] Feb, [facility] [place] [address] [id number] [place] [id number] 17 Feb, 2013 [facility] [address] [facility] [id number] [place] [address] 16 Feb, 2013 [facility] [place] [address] [id number] [place] [id number] 15 Feb, 2013 [facility] [place] [address] [id number] [place] [id number] 15 Feb, 2013 [facility] [id number] [place] [address], [place] [address] 14 Feb, 2013 [facility] [address] [address] Feb, [facility] [address] [address] Feb, [facility] [place] [address] [id number] [place] [id number] 10 Feb, 2013 [facility] [place] [address] [id number] [place] [id number] 09 Feb, 2013 [facility] [place] [address] [id number] [place] [id number] Jan, [facility] [place] [address] [id number] [place] [id number] Nov, [facility] [place] [address] [id number] [place] [id number] Nov, [facility] [address] [id number] [address] Oct, [facility] [address] [id number] [address] Apr, [facility] [address] [address] 16 Dec, 2009 [facility] [address] [address]- [address] Nov, [facility] [address] [facility] [id number] [place] [address] Oct, [facility] [address] [facility] [id number] [place] [address] Oct, [facility] [address] [facility] [id number] [place] [address] Sep, [facility] [address] [facility] [id number] [place] [address]- [address] Sep, [facility] [address] [facility] [id number] [place] [address] Sep, IMMUNIZATIONS No Known Immunizations SOCIAL HISTORY Never Assessed REASON FOR VISIT RX-Tramadol and Klonopin refills PLAN OF CARE VITAL SIGNS MEDICATIONS Medication Instructions Dosage Frequency Start Date End Date Duration Status Tramadol HCl 50 mg Orally 2 times a day must lasst 28 d 1 tablet as needed Apr, Active Clonazepam 1 MG Orally Once a day prn mustr last 28 day 1-2 tablet Jun, Active RESULTS No Results PROCEDURES No [...] History Generalized anxiety disorder-[facility] 09/2016 Hospitalization History Diverticulitis-[facility]. Left AMA 04/06/17 Hospitalization History ER visit for migraine 08/2017 Hospitalization History ER visit for chest pain 01/2018
--- OUTSIDE RECORDS SUMMARY | 2018-09-26 10:53 | XMS REPORT ---
Author Author MILAN VO Organization [facility] Address [address] [place] [address] Care Team Providers Care Rough Carpenter Name Role Phone MILAN VO Unavailable PROBLEMS Type Condition ICD9-CM Code POX74-ZY Code Onset Dates Condition Status SNOMED Code Problem RUQ abdominal pain R10.11 Active 676325776 Problem Lumbago with sciatica, right side M54.41 Active 000782540 Problem Diverticulitis of large intestine, unspecified bleeding status, unspecified complication status K57.32 Active 7455823 Problem Dysthymia F34.1 Active 65394376 Problem BMI 45.0-49.9, adult Z68.42 Active 939757738 Problem Tobacco abuse Z72.0 Active 181270720 Problem Other chronic pain G89.29 Active 38332394 Problem Sleep apnea, unspecified type G47.30 Active 84095273 Problem Morbid obesity E66.01 Active 389975967 Problem CAP (community acquired pneumonia) J18.9 Active 013126635 Problem Essential (primary) hypertension I10 Active 16469867 Problem Diverticulitis of large intestine without perforation or abscess without bleeding K57.32 Active 5788382 Problem Insomnia, unspecified type G47.00 Active 425842962 Problem Anxiety F41.9 Active 59300975 Problem Migraine with aura and without status migrainosus, not intractable G43.109 Active 1948152 Problem Elevated LDL cholesterol level E78.0 Active 101869514 Problem Biliary dyskinesia K82.8 Active 759370882 ALLERGIES No Information ENCOUNTERS Encounter Location Date Diagnosis [facility] [id number] [place] [id number] Aug, [facility] [address] [id number] [place] [id number] Jul, [facility] [address] [facility] [id number] [place] [id number] Jun, BMI 45.0-49.9, adult Z68.42 ; Essential (primary) hypertension I10 ; Dysthymia F34.1 ; Lumbago with sciatica, right side M54.41 and Mild intermittent asthma with acute exacerbation J45.21 [facility] [id number] [place] [id number] Jun, [facility] [id number] [place] [address] Jun, Chest congestion R09.89 ; Cough R05 and BMI 45.0-49.9, adult Z68.[id number] [place] [id number] Jun, Dental examination Z01.20 [facility] [address] [place] [address] [id number] May, Essential (primary) hypertension I10 ; Lumbago with sciatica, right side M54.41 ; Anxiety F41.9 and BMI 45.0-49.9, adult Z68.[address] [id number] [id number] May, Essential (primary) hypertension I10 ; Other chest pain R07.89 ; Dyspnea on exertion R06.09 ; Tobacco abuse Z72.0 ; Sleep apnea, unspecified type G47.30 ; BMI 45.0-49.9, adult Z68.42 and Morbid obesity E66.01 [facility] [address] [place] [address] May, BMI 45.0-49.9, adult Z68.42 [facility] [address] [place] [address] [id number] May, BMI 45.0-49.9, adult Z68.42 ; Lumbago with sciatica, right side M54.41 ; Anxiety F41.9 and Essential (primary) hypertension I10 [facility] [address]00565100[place], [place] [address] Apr, [facility] [id number] [place] [id number] Apr, Anxiety F41.9 [facility] [place] [id number] [place] [address] [id number] Apr, Anxiety F41.9 [facility] [place] [id number] [place] [id number] Apr, [facility] [address] [id number][place] [id number] Apr, Dental examination Z01.20 [facility] [place] [id number] [place] [address] [id number] Apr, Anxiety F41.9 [facility] [place] [id number] [place] [address] [id number] Apr, Anxiety F41.9 and Lumbago with sciatica, right side M54.41 [facility] [place] [id number] [place] [address] [id number] March, Anxiety F41.9 [facility] [place] [id number] [place] [address] [id number] March, Diverticulitis of large intestine, unspecified bleeding status, unspecified complication status K57.32 ; Anxiety F41.9 and Essential (primary) hypertension I10 [facility] [place] [id number] [place] [address] [id number] March, RUQ abdominal pain R10.11 [facility] [address]65100[place] [address] Feb, Wheezing on auscultation R06.2 [facility] [id number] [place] [id number] Feb, Anxiety F41.9 [facility] [id number] [place] [address] [id number] Feb, [facility] [place] [id number] [place] [address] [id number] Jan, BMI 50.0-59.9, adult Z68.43 ; Anxiety F41.9 ; Chest pain, unspecified type R07.9 and Essential (primary) hypertension I10 [address] [id number][place] [id number] Jan, BMI 45.0-49.9, adult Z68.42 ; Morbid obesity E66.01 ; Chest pain, non-cardiac R07.89 ; Anxiety F41.9 ; Essential (primary) hypertension I10 and Tobacco abuse Z72.[address] [id number], [place] [id number] Jan, Essential (primary) hypertension I10 [facility] [id number] [place] [id number] Dec, Essential (primary) hypertension I10 ; Migraine with aura and without status migrainosus, not intractable G43.109 ; Viral syndrome B34.9 and Lumbago with sciatica, right side M54.41 [facility] [id number] [place] [address] [id number] Nov, BMI 45.0-49.9, adult Z68.42 ; Migraine with aura and without status migrainosus, not intractable G43.109 and Essential (primary) hypertension I10 [facility] [address] [facility] [id number] [place] [address] [id number] Nov, Essential (primary) hypertension I10 [facility] [id number] [place] [address] [id number] Nov, BMI 45.0-49.9, adult Z68.42 ; Essential (primary) hypertension I10 ; Anxiety F41.9 ; Lumbago with sciatica, right side M54.41 and Other chronic pain G89.29 [facility] [address] [id number] [place] [id number] Nov, [facility] [id number] [place] [address] [id number] Aug, RUQ abdominal pain R10.11 [facility] [id number] [place] [address] [id number] Aug, Essential (primary) hypertension I10 and Anxiety F41.9 [facility] [id number] [place] [address] [id number] May, Essential (primary) hypertension I10 [address] [facility] [place] [id number] [place] [id number] March, Diverticulitis of large intestine, unspecified bleeding status, unspecified complication status K57.32 [facility] [address] [id number] [address] March, [facility] [place] [id number] [place] [id number] March, [facility] [place] [address] [id number] [id number] March, Chest wall pain R07.[address] [facility] [place] [id number] [place] [address] [id number] March, Anxiety F41.9 [facility] [id number] [place] [address] [id number] Feb, Biliary dyskinesia K82.8 [facility] [id number] [place] [id number] Feb, Biliary dyskinesia K82.8 [facility] [id number] [place] [id number] Jan, Essential (primary) hypertension I10 and RUQ abdominal pain R10.11 [facility] [place] [id number] [place] [id number] Jan, Essential (primary) hypertension I10 and Anxiety F41.9 [facility] [id number] [place] [id number] Dec, Essential (primary) hypertension I10 [facility] [place] [id number] [place] [id number] Nov, Migraine with aura and without status migrainosus, not intractable G43.109 and Essential (primary) hypertension I10 [facility] [place] [id number] [place] [id number] Nov, Anxiety F41.9 ; Migraine with aura and without status migrainosus, not intractable G43.109 and Insomnia, unspecified type G47.00 [facility] [id number] [place] [address] [id number] Oct, Migraine with aura and without status migrainosus, not intractable G43.109 [facility] [address] [id number] Oct, Anxiety F41.9 and Essential (primary) hypertension I10 [facility] [address] [id number]- [address] Oct, [facility] [address] [address] Sep, [facility] [id number] [place] [address] [id number] Sep, Diverticulitis of large intestine without perforation or abscess without bleeding K57.32 and Anxiety F41.9 [facility] [id number] [place] [address] [id number] Aug, Diverticulitis of large intestine without perforation or abscess without bleeding K57.32 [facility] [address] [phone]- [address] Aug, [facility] [id number] [place] [address] [id number] Aug, [facility] [id number] [place] [address] [phone]- [address] Aug, [facility] [id number] [place] [address] [id number] Aug, [facility] [id number] [place] [address] [id number] Jul, Ingrown left big toenail L60.0 [facility] [id number] [place] [address] [id number] Jul, [facility] [address] [id number] Jul, Ingrowing toenail of right foot L60.0 [facility] [address] [place] [address] [id number] Apr, [facility] [address] [id number] Apr, 2016 RUQ abdominal pain R10.11 ; Fatty liver disease, nonalcoholic K76.0 ; Hx of hyperglycemia Z86.39 ; Elevated alanine aminotransferase (ALT) level R74.0 ; Elevated LDL cholesterol level E78.0 and Prediabetes R73.[address] [place] [address] [id number] 08 Apr, 2016 RUQ abdominal pain R10.11 ; Mild persistent asthma without complication J45.30 ; Anxiety F41.9 and Essential (primary) hypertension I10 [id number] [place] [address] [id number] March, Wheezing R06.2 and Cough R05 [address] [id number] March, [id number] [place] [address] [id number] March, [address] [id number] March, Acute severe exacerbation of asthma J45.51 ; Cough R05 and Cough headache G44.83 [id number] [place] [address] [id number] 18 Feb, 2016 Mild intermittent asthma with acute exacerbation J45.21 and Transient insomnia F51.02 [id number] [place] [address] [id number] Feb, Pigmented skin lesion of uncertain nature L81.9 [id number] [place] [address] [id number] Feb, Anxiety F41.9 and Essential (primary) hypertension I10 [id number] [place] [address] [id number] Jan, [address] [id number] 23 Jan, 2016 Routine gynecological examination Z01.419 and Encounter for Papanicolaou smear for cervical cancer screening Z12.4 [id number] [place] [address] [id number] 07 Jan, 2016 Essential (primary) hypertension I10 and Anxiety F41.9 [facility] [address] [facility] [id number] [place] [id number] 10 Dec, 2015 Essential (primary) hypertension I10 and Anxiety F41.9 [facility] [address] [facility] [id number] [place] [id number] Nov, Essential (primary) hypertension I10 [facility] [address] [id number], [place] [id number] Aug, [facility] [id number] [place] [id number] Aug, CAP (community acquired pneumonia) J18.9 [facility] [place] [id number] [place] [address] [id number] Aug, CAP (community acquired pneumonia) J18.9 [facility] [place] [address] [facility] [address] [id number], [place] [id number] Aug, CAP (community acquired pneumonia) J18.9 [facility] [place] [id number] [place] [id number] Aug, CAP (community acquired pneumonia) J18.9 and Essential (primary) hypertension I10 [facility] [place] [id number] [place] [id number] Aug, CAP (community acquired pneumonia) J18.9 [facility] [address]00565100[place], [place] [address] Apr, [facility] [id number] [place] [address]- 2004 Feb, [facility] [id number] [place] [address]- 4[address] Feb, [facility] [place] [id number] [place] [id number] Jan, [facility] [id number] [place] [address] 26366- 7596 Jan, [facility] [address] [id number], [place] [address] Nov, [facility] [place] [address] [place] [id number] Nov, [facility] [address] [id number] [place] [address] Nov, [facility] [place] [address] [id number] [place] [id number] Oct, [facility] [place] [facility] [address]00565100[place], [place] [address]- [address] Oct, [facility] [place] [address] [id number] [place] [id number] Sep, [facility] [place] [facility] [address] [facility] [id number] [place] [address]- [address] Sep, [facility] [place] [address] [id number] [place] [id number] Jun, [facility] [place] [facility] [address]00565100[place], [place] [address]- [address] Jun, [facility] [place] [address] [facility] [id number] [place] [id number] Jun, [facility] [place] [facility] [address]00565100[place] [address] Jun, [facility] [place] [address] [facility] [id number] [place] [id number] May, [facility] [place] [facility] [address]00565100[place], [place] [address] May, [facility] [place] [address] [id number] [place] [id number] Dec, [facility] [place] [facility] [address] [facility] [id number] [address]- [address] Dec, [facility] [place] [address] [id number] [place] [id number] Feb, [facility] [place] [address] [id number] [place] [id number] Feb, [facility] [place] [address] [id number] [place] [id number] Feb, [facility] [place] [facility] [address] [facility] [id number], [place] [address]- [address] 16 Feb, 2013 [facility] [place] [address] [id number] [place] [id number] 15 Feb, 2013 [facility] [place] [address] [id number] [place] [id number] 15 Feb, 2013 [facility] [address] [id number] [address]- [address] 14 Feb, 2013 [facility] [address] [facility] [id number], [place] [address]- [address] 13 Feb, 2013 [facility] [address] [facility] [id number] [place] [address]- 2546 12 Feb, 2013 [facility] [place] [address] [id number] [place] [id number] Feb, [facility] [place] [address] [id number] [place] [id number] 09 Feb, 2013 [facility] [place] [address] [id number] [place] [id number] Jan, [facility] [place] [address] [id number] [place] [id number] Nov, [facility] [place] [address] [id number] [place] [id number] Nov, [facility] [address]00565100[place], [place] [address]- [address] Oct, [facility] [address]00565100[place], [place] [address]- [address] Apr, [facility] [address]00565100[place], [place] [address]- 6[address] Dec, [facility] [address] [id number], [place] [address]- 17[address] Nov, [facility] [address]00565100[place], [place] [address]- 57[address] Oct, [facility] [address] [id number], [place] [address]- [address] Oct, [facility] [address] [facility] [id number] [place] [address]- [address] Sep, [facility] [address] [facility] [id number] [place] [address]- 6[address] Sep, [facility] [address] [facility] [id number] [place] [address]- 6[address] Sep, IMMUNIZATIONS No Known Immunizations SOCIAL HISTORY Never Assessed REASON FOR VISIT out of clonazepam PLAN OF CARE VITAL SIGNS MEDICATIONS Medication Instructions Dosage Frequency Start Date End Date Duration Status Clonazepam 1 MG Orally twice a day 1 tablet as needed 12h Jun, 2 days Active RESULTS No Results PROCEDURES No Known procedures INSTRUCTIONS MEDICATIONS ADMINISTERED No Known Medications MEDICAL (GENERAL) HISTORY Type Description Date Medical History hypertension Medical History asthma Medical History CT 08/2016 ED-sigmoid diverticulitis, hepatic steatosis, stable bilateral low density adrenal adenomas Medical History GERD Medical History IBSD Medical History sleep apnea Surgical History cholecystectomy 03/24/17 Hospitalization History Diverticulitis-[facility] 08/2016 Hospitalization History Generalized anxiety disorder-[facility] 09/2016 Hospitalization History Diverticulitis-[facility]. Left AMA 04/06/17 Hospitalization History ER visit for migraine 08/2017 Hospitalization History ER visit for chest pain 01/2018
--- OUTSIDE RECORDS SUMMARY | 2018-09-26 10:53 | XMS REPORT ---
Author Author LOUIS BURDEN [facility] WALK IN [facility] Address [address] [place] [address] Care Team Providers Care Clinical Operations Consultant Name Role Phone LOUIS BURDEN Unavailable PROBLEMS Type Condition ICD9-CM Code RUZ62-JG Code Onset Dates Condition Status SNOMED Code Problem RUQ abdominal pain R10.11 Active 381795792 Problem Lumbago with sciatica, right side M54.41 Active 552396651 Problem Diverticulitis of large intestine, unspecified bleeding status, unspecified complication status K57.32 Active 2581465 Problem Dysthymia F34.1 Active 37393466 Problem BMI 45.0-49.9, adult Z68.42 Active 683724490 Problem Tobacco abuse Z72.0 Active 691499941 Problem Other chronic pain G89.29 Active 27800603 Problem Sleep apnea, unspecified type G47.30 Active 05772978 Problem Morbid obesity E66.01 Active 393573761 Problem CAP (community acquired pneumonia) J18.9 Active 455723822 Problem Essential (primary) hypertension I10 Active 70836466 Problem Diverticulitis of large intestine without perforation or abscess without bleeding K57.32 Active 9236845 Problem Insomnia, unspecified type G47.00 Active 357717283 Problem Anxiety F41.9 Active 97220789 Problem Migraine with aura and without status migrainosus, not intractable G43.109 Active 0297651 Problem Elevated LDL cholesterol level E78.0 Active 248974163 Problem Biliary dyskinesia K82.8 Active 921368521 ALLERGIES Substance Reaction Event Type Date Status Lisinopril cough Drug Allergy Jun, Active BuSpar suicidal thoughts, increased anxiety Drug Allergy Jun, Active ENCOUNTERS Encounter Location Date Diagnosis [facility] [address] [id number] [place] [id number] Aug, [facility] [address] [id number] [place] [id number] Jul, [facility] [address] [facility] [id number] [id number] Jun, BMI 45.0-49.9, adult Z68.42 ; Essential (primary) hypertension I10 ; Dysthymia F34.1 ; Lumbago with sciatica, right side M54.41 and Mild intermittent asthma with acute exacerbation J45.21 [facility] [address] [id number] Jun, [facility] WALK IN [facility] [address]100[place] [address] Jun, Chest congestion R09.89 ; Cough R05 and BMI 45.0-49.9, adult Z68.[address] [id number][place] [id number] Jun, Dental examination Z01.20 [address] [place] [address] [id number] May, Essential (primary) hypertension I10 ; Lumbago with sciatica, right side M54.41 ; Anxiety F41.9 and BMI 45.0-49.9, adult Z68.[address] [place] [id number] May, Essential (primary) hypertension I10 ; Other chest pain R07.89 ; Dyspnea on exertion R06.09 ; Tobacco abuse Z72.0 ; Sleep apnea, unspecified type G47.30 ; BMI 45.0-49.9, adult Z68.42 and Morbid obesity E66.01 [facility] [address] [id number] [address] May, BMI 45.0-49.9, adult Z68.42 [address] [place] [address] [id number] May, BMI 45.0-49.9, adult Z68.42 ; Lumbago with sciatica, right side M54.41 ; Anxiety F41.9 and Essential (primary) hypertension I10 [facility] [address]00565100[place], [place] [address] Apr, [facility] [id number][place] [id number] Apr, Anxiety F41.9 [facility] [id number], [place] [id number] Apr, Anxiety F41.9 [facility] [id number], [place] [id number] Apr, [facility] [address] [place] [address] [id number][place] [phone] Apr, Dental examination Z01.20 [facility] [id number] [place] [address] [id number] Apr, Anxiety F41.9 [facility] [id number] [place] [address] [id number] Apr, Anxiety F41.9 and Lumbago with sciatica, right side M54.41 [facility] [id number] [place] [address] [id number] March, Anxiety F41.9 [facility] [place] [id number], [place] [id number] March, Diverticulitis of large intestine, unspecified bleeding status, unspecified complication status K57.32 ; Anxiety F41.9 and Essential (primary) hypertension I10 [facility] [id number], [place] [id number] March, RUQ abdominal pain R10.11 [facility] [address] [facility] [id number], [place] [address] Feb, Wheezing on auscultation R06.2 [facility] [place] [id number], [place] [id number] Feb, Anxiety F41.9 [facility] [id number] [place] [address] [id number] Feb, [facility] [id number], [place] [id number] Jan, BMI 50.0-59.9, adult Z68.43 ; Anxiety F41.9 ; Chest pain, unspecified type R07.9 and Essential (primary) hypertension I10 [address] [id number][place] [id number] Jan, BMI 45.0-49.9, adult Z68.42 ; Morbid obesity E66.01 ; Chest pain, non-cardiac R07.89 ; Anxiety F41.9 ; Essential (primary) hypertension I10 and Tobacco abuse Z72.[address] [id number], [place] [id number] Jan, Essential (primary) hypertension I10 [facility] [id number] [place] [address] [id number] Dec, Essential (primary) hypertension I10 ; Migraine with aura and without status migrainosus, not intractable G43.109 ; Viral syndrome B34.9 and Lumbago with sciatica, right side M54.41 [place] [id number] [place] [address] [id number] Nov, BMI 45.0-49.9, adult Z68.42 ; Migraine with aura and without status migrainosus, not intractable G43.109 and Essential (primary) hypertension I10 [facility] [id number] [place] [address] [id number] Nov, Essential (primary) hypertension I10 [facility] [id number] [place] [address] [id number] Nov, BMI 45.0-49.9, adult Z68.42 ; Essential (primary) hypertension I10 ; Anxiety F41.9 ; Lumbago with sciatica, right side M54.41 and Other chronic pain G89.29 [facility] [id number] [place] [address] [id number] Nov, [facility] [address] [id number] Aug, RUQ abdominal pain R10.11 [facility] [id number] [place] [address] [id number] Aug, Essential (primary) hypertension I10 and Anxiety F41.9 [place] [id number], [place] [id number] May, Essential (primary) hypertension I10 and Anxiety F41.9 [facility] [place] [id number] [place] [address] [id number] March, Diverticulitis of large intestine, unspecified bleeding status, unspecified complication status K57.32 [facility] [address]00565100[place], [place] [address] March, [facility] [place] [id number] [place] [address] [id number] March, [facility] [place] [id number] [place] [address] [id number] March, Chest wall pain R07.89 and Dysuria R30.0 [facility] [place] [id number] [place] [address] [id number] March, Anxiety F41.9 [facility] [place] [id number] [place] [address] [id number] Feb, Biliary dyskinesia K82.8 [facility] [id number] [place] [address] [id number] Feb, Biliary dyskinesia K82.8 [facility] [place] [id number] [place] [address] [id number] Jan, Essential (primary) hypertension I10 and RUQ abdominal pain R10.11 [facility] [place] [id number] [place] [address] [id number] Jan, Essential (primary) hypertension I10 and Anxiety F41.9 [facility] [place] [id number], [place] [id number] Dec, Essential (primary) hypertension I10 [facility] [place] [id number] [place] [address] [id number] Nov, Migraine with aura and without status migrainosus, not intractable G43.109 and Essential (primary) hypertension I10 [facility] [place] [id number], [place] [id number] Nov, Anxiety F41.9 ; Migraine with aura and without status migrainosus, not intractable G43.109 and Insomnia, unspecified type G47.00 [facility] [id number] [place] [address] [id number] Oct, Migraine with aura and without status migrainosus, not intractable G43.109 [facility] [id number] [place] [address] [id number] Oct, Anxiety F41.9 and Essential (primary) hypertension I10 [facility] [address] [id number] Oct, [facility] [address] [address] Sep, [address] [id number] Sep, Diverticulitis of large intestine without perforation or abscess without bleeding K57.32 and Anxiety F41.[address] [id number] Aug, Diverticulitis of large intestine without perforation or abscess without bleeding K57.32 [facility] [id number] [place] [address] Aug, [place] [id number] [place] [address] [id number] Aug, [facility] [address] [address] Aug, [place] [id number] [place] [address] [id number] Aug, [facility] [id number] [place] [address] [id number] Jul, Ingrown left big toenail L60.[address] [id number] Jul, [address] [id number] Jul, Ingrowing toenail of right foot L60.0 [place] [id number] [place] [address] [id number] Apr, [address] [place] [address] [id number] 10 Apr, 2016 RUQ abdominal pain R10.11 ; Fatty liver disease, nonalcoholic K76.0 ; Hx of hyperglycemia Z86.39 ; Elevated alanine aminotransferase (ALT) level R74.0 ; Elevated LDL cholesterol level E78.0 and Prediabetes R73.09 [place] [id number] [place] [address] [id number] Apr, RUQ abdominal pain R10.11 ; Mild persistent asthma without complication J45.30 ; Anxiety F41.9 and Essential (primary) hypertension I10 [address] [id number] March, Wheezing R06.2 and Cough R05 [address] [id number] March, [address] [id number] March, [address] [id number] March, Acute severe exacerbation of asthma J45.51 ; Cough R05 and Cough headache G44.[address] [id number] Feb, Mild intermittent asthma with acute exacerbation J45.21 and Transient insomnia F51.[address] [id number] Feb, Pigmented skin lesion of uncertain nature L81.[address] [id number] Feb, Anxiety F41.9 and Essential (primary) hypertension I10 [place] [id number] [place] [address] [id number] Jan, [address] [id number] 23 Jan, 2016 Routine gynecological examination Z01.419 and Encounter for Papanicolaou smear for cervical cancer screening Z12.[address] [id number] Jan, Essential (primary) hypertension I10 and Anxiety F41.9 [facility] [id number], [place] [id number] Dec, Essential (primary) hypertension I10 and Anxiety F41.9 [facility] [place] [id number], [place] [id number] Nov, Essential (primary) hypertension I10 [facility] [address] [id number], [place] [id number] Aug, [facility] [place] [address] [facility] [id number], [place] [id number] Aug, CAP (community acquired pneumonia) J18.9 [facility] [place] [id number] [place] [address] [id number] Aug, CAP (community acquired pneumonia) J18.9 [facility] [address] [facility] [address] [id number], [place] [id number] Aug, CAP (community acquired pneumonia) J18.9 [facility] [place] [id number], [place] [id number] Aug, CAP (community acquired pneumonia) J18.9 and Essential (primary) hypertension I10 [facility] [address] [place] [address] [id number] Aug, CAP (community acquired pneumonia) J18.9 [facility] [address]00565100[place], [place] [address] Apr, [facility] [address] [place] [address] Feb, [facility] [address]00565100[place], [place] [address] Feb, [facility] [id number], [place] [id number] Jan, [facility] [address] [place] [address]- [address] Jan, [facility] [id number] [place] [address]- [address] Nov, [facility] [address] [id number] [place] [id number] Nov, [facility] [address] [facility] [id number], [place] [address] Nov, [facility] [address] [id number] [place] [id number] Oct, [facility] [address] [facility] [id number][place] [address] Oct, [facility] [address] [id number] [place] [id number] Sep, [facility] [address] [facility] [id number], [place] [address]- [address] Sep, [facility] [address] [id number] [place] [id number] Jun, [facility] [address]65[address], [place] [address] Jun, [facility] [address] [id number] [place] [id number] Jun, [facility] [address] [facility] [id number], [place] [address] Jun, [facility] [address] [id number] [place] [id number] May, [facility] [address] [facility] [id number], [place] [address] May, [facility] [address] [id number] [place] [id number] Dec, [facility] [place] [facility] [address] [facility] [id number], [place] [address] Dec, [facility] [address] [id number] [place] [id number] Feb, [facility] [address] [id number] [place] [id number] Feb, [facility] [address] [id number] [place] [id number] 17 Feb, 2013 [facility] [place] [facility] [address] [id number] [place] [address]- [address] 16 Feb, 2013 [facility] [address] [id number] [place] [id number] 15 Feb, 2013 [facility] [address] [id number] [place] [id number] 15 Feb, 2013 [facility] [place] [facility] [address] [facility] [id number] [place] [address]- [address] 14 Feb, 2013 [facility] [address] [id number] [place] [address]- 64[address] 13 Feb, 2013 [facility] [place] [facility] [address] [id number] [place] [address]- [address] 12 Feb, 2013 [facility] [address] [id number] [place] [id number] 10 Feb, 2013 [facility] [address] [id number] [place] [id number] 09 Feb, 2013 [facility] [address] [id number] [place] [id number] Jan, [facility] [address] [id number] [place] [id number] Nov, [facility] [address] [id number] [place] [id number] Nov, [facility] [address] [facility] [id number], [place] [address] Oct, [facility] [place] [facility] [address] [facility] [id number][place] [address] Apr, [facility] [place] [facility] [address] [facility] [id number][place] [address]- [address] Dec, [facility] [place] [facility] [address] [facility] [id number][place]64[place] Nov, [facility] [place] [facility] [address] [id number] [address] Oct, [facility] [place] [facility] [address] [facility] [id number] [place] [address]- [address] Oct, [facility] [address] [facility] [id number], [place] [address] Sep, [facility] [address] [facility] [id number], [place] [address]- [address] Sep, [facility] [address] [facility] [id number], [place] [address]- [address] Sep, IMMUNIZATIONS Vaccine Route Administration Date Status ROCEPHIN 1 GM (IM) IM Intramuscular Jul 19, 2018 Administered SOLUMEDROL (UP TO 125 MG) IM Intramuscular Jul 19, 2018 Administered SOCIAL HISTORY Never Assessed REASON FOR VISIT congestion/cough SOB started Sun Opal, Started with a tooth ache PLAN OF CARE Activity Details Follow Up w/ PCP, 07/26 Reason:possible COPD VITAL SIGNS Height 66 in 2018-07-19 Weight 291.0 lbs 2018-07-19 Temperature 97.4 degrees Fahrenheit 2018-07-19 Heart Rate 100 bpm 2018-07-19 Respiratory Rate 20 2018-07-19 Oximetry 97 % 2018-07-19 BMI 46.96 kg/m2 2018-07-19 Blood pressure systolic 140 mmHg 2018-07-19 Blood pressure diastolic 90 mmHg 2018-07-19 MEDICATIONS Medication Instructions Dosage Frequency Start Date End Date Duration Status Tramadol HCl 50 mg Orally 2 times a day must lasst 28 d 1 tablet as needed Apr, Active Fluoxetine 10 mg Orally Once a day 2 capsule in the morning 24h May, Active Clonazepam 1 MG Orally Once a daymust last 28 d 1 tablet May, Active Atenolol 100 mg Orally Once a day 1 tablet 24h Nov, Active Nitroglycerin 0.4 MG Active Losartan Potassium 100 mg Orally Once a day 1 tablet 24h Nov, Active Albuterol Sulfate 90 mcg/actuation Inhalation every 8 hrs 2 puffs by Inhalation route every 4-6 hours as needed PRN cough or wheezing 8h May, Active PredniSONE 20 mg Orally Once a day 2 tablets 24h Jun, Jun, 05 days Active Amlodipine Besylate 5 mg Orally Once a day 1.5 tablet 24h Nov, Active CompAir Nebulizer - as directed Feb, 5 days Active Aspir-81 81 MG Orally Once a day 1 tablet 24h Active Ibuprofen 800 MG Orally Three times a day 1 tablet with food or milk as needed 8h May, Active RESULTS Name Result Date Reference Range Xray : Chest 2 View (IN HOUSE) 2018-07-19 PROCEDURES Procedure Date Ordered Result Body Site X-RAY EXAM CHEST 2 VIEWS Jul 19, 2018 ROCEPHIN 1 GM (IM) Jul 19, 2018 SOLUMEDROL (UP TO 125 MG) Jul 19, 2018 THER/PROPH/DIAG INJ, SC/IM Jul 19, 2018 INSTRUCTIONS MEDICATIONS ADMINISTERED No Known Medications MEDICAL (GENERAL) HISTORY Type Description Date Medical History hypertension Medical History asthma Medical History CT 08/2016 ED-sigmoid diverticulitis, hepatic steatosis, stable bilateral low density adrenal adenomas Medical History GERD Medical History IBSD Medical History sleep apnea Surgical History cholecystectomy 03/24/17 Hospitalization History [facility]verticulitis-[facility] 08/2016 Hospitalization History Generalized anxiety disorder-[facility] 09/2016 Hospitalization History Diverticulitis-[facility]. Left AMA 04/06/17 Hospitalization History ER visit for migraine 08/2017 Hospitalization History ER visit for chest pain 01/2018
--- OUTSIDE RECORDS SUMMARY | 2018-09-26 10:54 | XMS REPORT ---
Author Author KOFI FRANCIS [facility] Address [address] [place] [address] Care Team Providers Care Station Engineer Main Line Name Role Phone FEROZ FRANCISARDO Unavailable PROBLEMS Type Condition ICD9-CM Code BRY25-UU Code Onset Dates Condition Status SNOMED Code Problem RUQ abdominal pain R10.11 Active 142758239 Problem Lumbago with sciatica, right side M54.41 Active 059871173 Problem Diverticulitis of large intestine, unspecified bleeding status, unspecified complication status K57.32 Active 1476565 Problem Dysthymia F34.1 Active 76789298 Problem BMI 45.0-49.9, adult Z68.42 Active 497356000 Problem Tobacco abuse Z72.0 Active 164378985 Problem Other chronic pain G89.29 Active 97280466 Problem Sleep apnea, unspecified type G47.30 Active 43627442 Problem Morbid obesity E66.01 Active 106650361 Problem CAP (community acquired pneumonia) J18.9 Active 351241916 Problem Essential (primary) hypertension I10 Active 90579232 Problem Diverticulitis of large intestine without perforation or abscess without bleeding K57.32 Active 2074764 Problem Insomnia, unspecified type G47.00 Active 507303136 Problem Anxiety F41.9 Active 14639412 Problem Migraine with aura and without status migrainosus, not intractable G43.109 Active 0037867 Problem Elevated LDL cholesterol level E78.0 Active 714899915 Problem Biliary dyskinesia K82.8 Active 710397341 ALLERGIES Substance Reaction Event Type Date Status Lisinopril cough Drug Allergy Jun, Active BuSpar suicidal thoughts, increased anxiety Drug Allergy Jun, Active ENCOUNTERS Encounter Location Date Diagnosis [facility] [address] [facility] [id number] [place] [id number] Aug, [facility] [address] [facility] [id number] [place] [id number] Jul, [facility] [address] [id number] [id number] Jun, BMI 45.0-49.9, adult Z68.42 ; Essential (primary) hypertension I10 ; Dysthymia F34.1 ; Lumbago with sciatica, right side M54.41 and Mild intermittent asthma with acute exacerbation J45.21 [facility] [address]005[address]100[place] [id number] Jun, [facility] [address] [address] Jun, Chest congestion R09.89 ; Cough R05 and BMI 45.0-49.9, adult Z68.[address] [id number] [id number] Jun, Dental examination Z01.[address] [place] [address] [id number] May, Essential (primary) hypertension I10 ; Lumbago with sciatica, right side M54.41 ; Anxiety F41.9 and BMI 45.0-49.9, adult Z68.42 [address]00565100[place] [id number] May, Essential (primary) hypertension I10 ; Other chest pain R07.89 ; Dyspnea on exertion R06.09 ; Tobacco abuse Z72.0 ; Sleep apnea, unspecified type G47.30 ; BMI 45.0-49.9, adult Z68.42 and Morbid obesity E66.01 [facility] [address] [id number] [address] May, BMI 45.0-49.9, adult Z68.[address] [place] [address] [id number] May, BMI 45.0-49.9, adult Z68.42 ; Lumbago with sciatica, right side M54.41 ; Anxiety F41.9 and Essential (primary) hypertension I10 [facility] [address] [id number] [address] Apr, [facility] [id number] [place] [id number] Apr, Anxiety F41.9 [facility] [id number] [place] [id number] Apr, Anxiety F41.9 [facility] [id number] [place] [id number] Apr, [facility] [address] [id number] [id number] [id number] Apr, Dental examination Z01.20 [facility] [id number] [place] [address] [id number] Apr, Anxiety F41.9 [facility] [id number] [place] [address] [id number] Apr, Anxiety F41.9 and Lumbago with sciatica, right side M54.41 [facility] [id number] [place] [address] [id number] March, Anxiety F41.9 [facility] [id number] [place] [address] [id number] March, Diverticulitis of large intestine, unspecified bleeding status, unspecified complication status K57.32 ; Anxiety F41.9 and Essential (primary) hypertension I10 [facility] [id number] [place] [id number] March, RUQ abdominal pain R10.11 [facility] [address] [facility] [id number] [address] Feb, Wheezing on auscultation R06.2 [facility] [id number] [place] [id number] Feb, Anxiety F41.9 [facility] [id number] [place] [address] [id number] Feb, [facility] [id number] [place] [id number] Jan, BMI 50.0-59.9, adult Z68.43 ; Anxiety F41.9 ; Chest pain, unspecified type R07.9 and Essential (primary) hypertension I10 [address] [id number][place] [id number] Jan, BMI 45.0-49.9, adult Z68.42 ; Morbid obesity E66.01 ; Chest pain, non-cardiac R07.89 ; Anxiety F41.9 ; Essential (primary) hypertension I10 and Tobacco abuse Z72.[address] [id number], [place] [id number] Jan, Essential (primary) hypertension I10 [place] [id number] [place] [address] [id number] Dec, Essential (primary) hypertension I10 ; Migraine with aura and without status migrainosus, not intractable G43.109 ; Viral syndrome B34.9 and Lumbago with sciatica, right side M54.41 [place] [id number] [place] [address] [id number] Nov, BMI 45.0-49.9, adult Z68.42 ; Migraine with aura and without status migrainosus, not intractable G43.109 and Essential (primary) hypertension I10 [facility] [id number] [place] [address] [id number] Nov, Essential (primary) hypertension I10 [facility] [id number] [place] [address] [id number] Nov, BMI 45.0-49.9, adult Z68.42 ; Essential (primary) hypertension I10 ; Anxiety F41.9 ; Lumbago with sciatica, right side M54.41 and Other chronic pain G89.29 [facility] [id number] [place] [address] [id number] Nov, [place] [id number] [place] [address] [id number] Aug, RUQ abdominal pain R10.11 [facility] [id number] [place] [address] [id number] Aug, Essential (primary) hypertension I10 and Anxiety F41.9 [facility] [id number] [place] [id number] May, Essential (primary) hypertension I10 and Anxiety F41.9 [facility] [id number] [place] [address] [id number] March, Diverticulitis of large intestine, unspecified bleeding status, unspecified complication status K57.32 [facility] [id number] [place] [id number] March, [facility] [id number] [place] [address] [id number] March, [facility] [id number] [place] [address] [id number] March, Chest wall pain R07.89 and Dysuria R30.0 [facility] [id number] [place] [address] [id number] March, Anxiety F41.9 [facility] [id number] [place] [address] [id number] Feb, Biliary dyskinesia K82.8 [facility] [id number] [place] [address] [id number] Feb, Biliary dyskinesia K82.8 [facility] [id number] [place] [address] [id number] Jan, Essential (primary) hypertension I10 and RUQ abdominal pain R10.11 [facility] [id number] [place] [address] [id number] Jan, Essential (primary) hypertension I10 and Anxiety F41.9 [facility] [id number] [place] [address] [id number] Dec, Essential (primary) hypertension I10 [facility] [id number] [place] [address] [id number] Nov, Migraine with aura and without status migrainosus, not intractable G43.109 and Essential (primary) hypertension I10 [facility] [place] [id number] [place] [address] [id number] Nov, Anxiety F41.9 ; Migraine with aura and without status migrainosus, not intractable G43.109 and Insomnia, unspecified type G47.00 [facility] [id number] [place] [address] [id number] Oct, Migraine with aura and without status migrainosus, not intractable G43.109 [facility] [place] [id number] [place] [address] [id number] Oct, Anxiety F41.9 and Essential (primary) hypertension I10 [facility] [address] [address] Oct, [facility] [address] [address] Sep, [address] [id number] Sep, Diverticulitis of large intestine without perforation or abscess without bleeding K57.32 and Anxiety F41.[address] [id number] Aug, Diverticulitis of large intestine without perforation or abscess without bleeding K57.32 [place] [address] [address] Aug, [address] [id number] Aug, [facility] [address] [address] Aug, [address] [id number] Aug, [place] [id number] [place] [address] [id number] Jul, Ingrown left big toenail L60.[address] [id number] Jul, [address] [id number] Jul, Ingrowing toenail of right foot L60.[address] [id number] Apr, [address] [place] [address] [id number] 10 Apr, 2016 RUQ abdominal pain R10.11 ; Fatty liver disease, nonalcoholic K76.0 ; Hx of hyperglycemia Z86.39 ; Elevated alanine aminotransferase (ALT) level R74.0 ; Elevated LDL cholesterol level E78.0 and Prediabetes R73.09 [place] [id number] [place] [address] [id number] Apr, RUQ abdominal pain R10.11 ; Mild persistent asthma without complication J45.30 ; Anxiety F41.9 and Essential (primary) hypertension I10 [address] [id number] March, Wheezing R06.2 and Cough R05 [address] [id number] March, [address] [id number] March, [address] [id number] March, Acute severe exacerbation of asthma J45.51 ; Cough R05 and Cough headache G44.[address] [id number] Feb, Mild intermittent asthma with acute exacerbation J45.21 and Transient insomnia F51.[address] [id number] Feb, Pigmented skin lesion of uncertain nature L81.9 [id number] [place] [address] [id number] Feb, Anxiety F41.9 and Essential (primary) hypertension I10 [address] [id number] Jan, [address] [id number] 23 Jan, 2016 Routine gynecological examination Z01.419 and Encounter for Papanicolaou smear for cervical cancer screening Z12.[address] [id number] Jan, Essential (primary) hypertension I10 and Anxiety F41.9 [facility] [id number] [place] [id number] Dec, Essential (primary) hypertension I10 and Anxiety F41.9 [facility] [id number] [place] [id number] Nov, Essential (primary) hypertension I10 [facility] [place] [address] [facility] [address] [id number], [place] [id number] Aug, [facility] [address] [id number] [place] [id number] Aug, CAP (community acquired pneumonia) J18.9 [facility] [place] [id number] [place] [address] [id number] Aug, CAP (community acquired pneumonia) J18.9 [facility] [place] [address] [facility] [address] [id number] [id number] Aug, CAP (community acquired pneumonia) J18.9 [facility] [place] [id number] [place] [id number] Aug, CAP (community acquired pneumonia) J18.9 and Essential (primary) hypertension I10 [facility] [place] [address]00565100[place] [id number] Aug, CAP (community acquired pneumonia) J18.9 [facility] [address]00565100[place] [address] Apr, [facility] [id number] [place] [address] Feb, [facility] [address] [place] [address] Feb, [facility] [id number] [place] [address] [id number] Jan, [facility] [id number] [place] [address] Jan, [facility] [id number] [place] [address] [place] [address] Nov, [facility] [address] [id number] [place] [id number] Nov, [facility] [address] [facility] [id number] [address] Nov, [facility] [address] [id number] [place] [id number] Oct, [facility] [address] [facility] [id number] [place] [address] Oct, [facility] [address] [id number] [place] [id number] Sep, [facility] [address] [facility] [id number] [place] [address] Sep, [facility] [address] [id number] [place] [id number] Jun, [facility] [address]00565100[place] [address] Jun, [facility] [address] [id number] [place] [id number] Jun, [facility] [address]00565100[place] [address] Jun, [facility] [address] [id number] [place] [id number] May, [facility] [address] [id number] [address] May, [facility] [address] [id number] [place] [id number] Dec, [facility] [place] [facility] [address] [facility] [id number] [place] [address] Dec, [facility] [address] [id number] [place] [id number] Feb, [facility] [address] [id number] [place] [id number] Feb, [facility] [address] [id number] [place] [id number] 17 Feb, 2013 [facility] [address] [facility] [id number] [place] [address] 16 Feb, 2013 [facility] [address] [id number] [place] [id number] 15 Feb, 2013 [facility] [address] [id number] [place] [id number] 15 Feb, 2013 [facility] [place] [facility] [address] [facility] [id number] [address] 14 Feb, 2013 [facility] [address] [facility] [id number] [place] [address] Feb, [facility] [place] [facility] [address] [facility] [id number] [place] [address] Feb, [facility] [address] [id number] [place] [id number] Feb, [facility] [address] [id number] [place] [id number] Feb, [facility] [address] [id number] [place] [id number] Jan, [facility] [address] [id number] [place] [id number] Nov, [facility] [address] [id number] [place] [id number] Nov, [facility] [address] [id number] [address] Oct, [facility] [place] [facility] [address] [facility] [id number] [place] [address] Apr, [facility] [place] [facility] [address] [facility] [id number] [place] [address] Dec, [facility] [place] [facility] [address] [facility] [id number] [place] [address] Nov, [facility] [place] [facility] [address] [id number] [address] Oct, [facility] [place] [facility] [address] [id number] [address] Oct, [facility] [address] [facility] [id number] [place] [address] Sep, [facility] [address] [facility] [id number] [place] [address] Sep, [facility] [address] [facility] [id number] [place] [address] Sep, IMMUNIZATIONS No Known Immunizations SOCIAL HISTORY Never Assessed REASON FOR VISIT Restorative PLAN OF CARE Activity Details Follow Up prn Reason:1hr. Fillings #4 & #5 VITAL SIGNS Height 66 in 2018-07-04 Blood pressure systolic 154 mmHg 2018-07-04 Blood pressure diastolic 92...140 mmHg 2018-07-04 MEDICATIONS Medication Instructions Dosage Frequency Start Date End Date Duration Status Atenolol 100 mg Orally Once a day 1 tablet 24h Nov, Active Amlodipine Besylate 5 mg Orally Once a day 1.5 tablet 24h Nov, Active Aspir-81 81 MG Orally Once a day 1 tablet 24h Active Tramadol HCl 50 mg Orally 2 times a day must lasst 28 d 1 tablet as needed Apr, Active CompAir Nebulizer - as directed Feb, 5 days Active Ibuprofen 800 MG Orally Three times a day 1 tablet with food or milk as needed 8h May, Active Albuterol Sulfate 90 mcg/actuation Inhalation every 8 hrs 2 puffs by Inhalation route every 4-6 hours as needed PRN cough or wheezing 8h May, Active Fluoxetine 10 mg Orally Once a day 2 capsule in the morning 24h May, Active Nitroglycerin 0.4 MG Active Clonazepam 1 MG Orally Once a daymust last 28 d 1 tablet May, Active Losartan Potassium 100 mg Orally Once a day 1 tablet 24h Nov, Active RESULTS No Results PROCEDURES Procedure Date Ordered Result Body Site RESIN COMPOS - 3 SURFACES POSTERIOR Jul 04, 2018 INSTRUCTIONS MEDICATIONS ADMINISTERED No Known Medications MEDICAL (GENERAL) HISTORY Type Description Date Medical History hypertension Medical History asthma Medical History CT 08/2016 ED-sigmoid diverticulitis, hepatic steatosis, stable bilateral low density adrenal adenomas Medical History GERD Medical History IBSD Medical History sleep apnea Surgical History cholecystectomy 03/24/17 Hospitalization History Diverticulitis-[facility] 08/2016 Hospitalization History Generalized anxiety disorder-[facility] 09/2016 Hospitalization History Diverticulitis-[facility]. Left AMA 04/06/17 Hospitalization History ER visit for migraine 08/2017 Hospitalization History ER visit for chest pain 01/2018
--- OUTSIDE RECORDS SUMMARY | 2018-09-26 10:54 | XMS REPORT ---
Author Author NUZHAT FRANKS [facility] Address [address] [place] [address] Care Team Providers Care Editor Sound Name Role Phone NUZHAT FRANKS Unavailable PROBLEMS Type Condition ICD9-CM Code QQC34-UW Code Onset Dates Condition Status SNOMED Code Problem RUQ abdominal pain R10.11 Active 629030292 Problem Lumbago with sciatica, right side M54.41 Active 724365481 Problem Diverticulitis of large intestine, unspecified bleeding status, unspecified complication status K57.32 Active 4010029 Problem Dysthymia F34.1 Active 79083638 Problem BMI 45.0-49.9, adult Z68.42 Active 424161014 Problem Tobacco abuse Z72.0 Active 337451352 Problem Other chronic pain G89.29 Active 21881704 Problem Sleep apnea, unspecified type G47.30 Active 51220115 Problem Morbid obesity E66.01 Active 332874986 Problem CAP (community acquired pneumonia) J18.9 Active 003232740 Problem Essential (primary) hypertension I10 Active 34702453 Problem Diverticulitis of large intestine without perforation or abscess without bleeding K57.32 Active 1722413 Problem Insomnia, unspecified type G47.00 Active 937301728 Problem Anxiety F41.9 Active 83179706 Problem Migraine with aura and without status migrainosus, not intractable G43.109 Active 5768454 Problem Elevated LDL cholesterol level E78.0 Active 642458215 Problem Biliary dyskinesia K82.8 Active 742786664 ALLERGIES Substance Reaction Event Type Date Status Lisinopril cough Drug Allergy May, Active BuSpar suicidal thoughts, increased anxiety Drug Allergy May, Active ENCOUNTERS Encounter Location Date Diagnosis [facility] [address] [id number] [place], [place] [id number] Aug, [facility] 120 [facility] [id number] [place] [id number] Jul, [facility] [address] [place] [address] [id number] Jun, BMI 45.0-49.9, adult Z68.42 ; Essential (primary) hypertension I10 ; Dysthymia F34.1 ; Lumbago with sciatica, right side M54.41 and Mild intermittent asthma with acute exacerbation J45.21 [facility] [id number] [place] [address] [id number] Jun, [facility] [id number] [place] [address] Jun, Chest congestion R09.89 ; Cough R05 and BMI 45.0-49.9, adult Z68.42 [address] [place] [address] [id number] Jun, Dental examination Z01.20 [place] [id number] [place] [address] [id number] May, Essential (primary) hypertension I10 ; Lumbago with sciatica, right side M54.41 ; Anxiety F41.9 and BMI 45.0-49.9, adult Z68.42 [address] [place] [address] [id number] May, Essential (primary) hypertension I10 ; Other chest pain R07.89 ; Dyspnea on exertion R06.09 ; Tobacco abuse Z72.0 ; Sleep apnea, unspecified type G47.30 ; BMI 45.0-49.9, adult Z68.42 and Morbid obesity E66.01 [facility] [place] [address] [place] [address] May, BMI 45.0-49.9, adult Z68.42 [place] [id number] [place] [address] [id number] May, BMI 45.0-49.9, adult Z68.42 ; Lumbago with sciatica, right side M54.41 ; Anxiety F41.9 and Essential (primary) hypertension I10 [facility] [place] [address] [id number] [address] Apr, [facility] [id number] [id number] Apr, Anxiety F41.9 [facility] [id number] [place] [address] [id number] Apr, Anxiety F41.9 [facility] [id number] [place] [address] [id number] Apr, [facility] [address] [id number] [place] [phone] Apr, Dental examination Z01.20 [facility] [id number] [place] [address] [id number] Apr, Anxiety F41.9 [facility] [id number] [place] [address] [id number] Apr, Anxiety F41.9 and Lumbago with sciatica, right side M54.41 [facility] [id number] [place] [address] [id number] March, Anxiety F41.9 [facility] [id number] [place] [address] [id number] March, Diverticulitis of large intestine, unspecified bleeding status, unspecified complication status K57.32 ; Anxiety F41.9 and Essential (primary) hypertension I10 [facility] [id number] [place] [address] [id number] March, RUQ abdominal pain R10.11 [facility] [address]005[address] [address] Feb, Wheezing on auscultation R06.2 [facility] [id number][place] [id number] Feb, Anxiety F41.9 [facility] [id number] [place] [address] [id number] Feb, [facility] [id number], [place] [id number] Jan, BMI 50.0-59.9, adult Z68.43 ; Anxiety F41.9 ; Chest pain, unspecified type R07.9 and Essential (primary) hypertension I10 [address] [id number] [place] [id number] Jan, BMI 45.0-49.9, adult Z68.42 ; Morbid obesity E66.01 ; Chest pain, non-cardiac R07.89 ; Anxiety F41.9 ; Essential (primary) hypertension I10 and Tobacco abuse Z72.[address] [id number] [place] [id number] Jan, Essential (primary) hypertension I10 [address] [place] [address] [id number] Dec, Essential (primary) hypertension I10 ; Migraine with aura and without status migrainosus, not intractable G43.109 ; Viral syndrome B34.9 and Lumbago with sciatica, right side M54.41 [place] [id number] [place] [address] [id number] Nov, BMI 45.0-49.9, adult Z68.42 ; Migraine with aura and without status migrainosus, not intractable G43.109 and Essential (primary) hypertension I10 [address] [id number] [place] [address] [id number] Nov, Essential (primary) hypertension I10 [place] [id number], [place] [id number] Nov, BMI 45.0-49.9, adult Z68.42 ; Essential (primary) hypertension I10 ; Anxiety F41.9 ; Lumbago with sciatica, right side M54.41 and Other chronic pain G89.29 [facility] [id number], [place] [id number] Nov, [place] [id number] [place] [address] [id number] Aug, RUQ abdominal pain R10.11 [facility] [id number] [place] [address] [id number] Aug, Essential (primary) hypertension I10 and Anxiety F41.9 [facility] [id number], [place] [id number] May, Essential (primary) hypertension I10 and Anxiety F41.9 [facility] [id number] [place] [address] [id number] March, Diverticulitis of large intestine, unspecified bleeding status, unspecified complication status K57.32 [facility] [place] [address]005[address]100[place] [address] March, [facility] [id number] [place] [address] [id number] March, [facility] [id number] [place] [address] [id number] March, Chest wall pain R07.89 and Dysuria R30.0 [facility] [id number] [place] [address] [id number] March, Anxiety F41.9 [facility] [id number] [place] [address] [id number] Feb, Biliary dyskinesia K82.8 [facility] [id number] [place] [address] [id number] Feb, Biliary dyskinesia K82.8 [facility] [id number] [place] [address] [id number] Jan, Essential (primary) hypertension I10 and RUQ abdominal pain R10.11 [facility] [id number] [place] [address] [id number] Jan, Essential (primary) hypertension I10 and Anxiety F41.9 [facility] [id number] [place] [address] [id number] Dec, Essential (primary) hypertension I10 [facility] [id number] [place] [address] [id number] Nov, Migraine with aura and without status migrainosus, not intractable G43.109 and Essential (primary) hypertension I10 [facility] [id number], [place] [id number] Nov, Anxiety F41.9 ; Migraine with aura and without status migrainosus, not intractable G43.109 and Insomnia, unspecified type G47.00 [facility] [id number] [place] [address] [id number] Oct, Migraine with aura and without status migrainosus, not intractable G43.109 [address] [id number] [place] [address] [id number] Oct, Anxiety F41.9 and Essential (primary) hypertension I10 [place] [address] [address] Oct, [facility] [place] [address] [address] Sep, [address] [id number] Sep, Diverticulitis of large intestine without perforation or abscess without bleeding K57.32 and Anxiety F41.[address] [id number] Aug, Diverticulitis of large intestine without perforation or abscess without bleeding K57.32 [place] [address] [address] Aug, [address] [id number] Aug, [place] [address] [address] Aug, [place] [id number] [place] [address] [id number] Aug, [facility] [address] [id number] Jul, Ingrown left big toenail L60.[address] [id number] Jul, [address] [id number] Jul, Ingrowing toenail of right foot L60.[address] [id number] Apr, [address] [place] [address] [id number] Apr, RUQ abdominal pain R10.11 ; Fatty liver disease, nonalcoholic K76.0 ; Hx of hyperglycemia Z86.39 ; Elevated alanine aminotransferase (ALT) level R74.0 ; Elevated LDL cholesterol level E78.0 and Prediabetes R73.09 [place] [id number] [place] [address] [id number] Apr, RUQ abdominal pain R10.11 ; Mild persistent asthma without complication J45.30 ; Anxiety F41.9 and Essential (primary) hypertension I10 [address] [id number] March, Wheezing R06.2 and Cough R05 [address] [id number] March, [address] [id number] March, [address] [id number] March, Acute severe exacerbation of asthma J45.51 ; Cough R05 and Cough headache G44.[address] [id number] Feb, Mild intermittent asthma with acute exacerbation J45.21 and Transient insomnia F51.[address] [id number] Feb, Pigmented skin lesion of uncertain nature L81.9 [place] [id number] [place] [address] [id number] Feb, Anxiety F41.9 and Essential (primary) hypertension I10 [place] [id number] [place] [address] [id number] Jan, [address] [id number] Jan, Routine gynecological examination Z01.419 and Encounter for Papanicolaou smear for cervical cancer screening Z12.[address] [id number] Jan, Essential (primary) hypertension I10 and Anxiety F41.9 [facility] [id number], [place] [id number] Dec, Essential (primary) hypertension I10 and Anxiety F41.9 [facility] [id number], [place] [id number] Nov, Essential (primary) hypertension I10 [facility] [address] [facility] [id number] [place] [id number] Aug, [facility] [id number], [place] [id number] Aug, CAP (community acquired pneumonia) J18.9 [facility] [id number] [place] [address] [id number] Aug, CAP (community acquired pneumonia) J18.9 [facility] [address] [facility] [id number] [place] [id number] Aug, CAP (community acquired pneumonia) J18.9 [facility] [address]00565100[place] [id number] Aug, CAP (community acquired pneumonia) J18.9 and Essential (primary) hypertension I10 [facility] [address]00565100[place] [id number] Aug, CAP (community acquired pneumonia) J18.9 [facility] [place] [address]00565100[place] [address] Apr, [facility] [place] [id number] [place] [address]33- 8866 Feb, [facility] [place] [id number] [place] [address] 80956- 65[address] Feb, [facility] [id number] [place] [address] [id number] Jan, [facility] [place] [id number] [place] [address]95- 4[address] Jan, [facility] [place] [id number] [place] [address] 98796- 4969 Nov, [facility] [address] [id number] [place] [id number] Nov, [facility] [address] [facility] [id number] [address] Nov, [facility] [address] [id number] [place] [id number] Oct, [facility] [address] [facility] [id number] [address] Oct, [facility] [address] [id number] [place] [id number] Sep, [facility] [address] [facility] [id number] [address]- [address] Sep, [facility] [address] [id number] [place] [id number] Jun, [facility] [address] [id number] [address] Jun, [facility] [address] [id number] [place] [id number] Jun, [facility] [address] [id number], [place] [address] Jun, [facility] [address] [id number], [place] [id number] May, [facility] [address] [facility] [id number] [address] May, [facility] [address] [id number][place] [id number] Dec, [facility] [address] [facility] [id number] [address]- [address] Dec, [facility] [address] [id number] [place] [id number] Feb, [facility] [address] [id number] [place] [id number] Feb, [facility] [address] [id number] [place] [id number] Feb, [facility] [address] [facility] [id number] [address] 16 Feb, 2013 [facility] [address] [id number] [place] [id number] 15 Feb, 2013 [facility] [address] [id number] [place] [id number] 15 Feb, 2013 [facility] [address] [facility] [id number] [address] 14 Feb, 2013 [facility] [address] [facility] [id number] [address] Feb, [facility] [address] [facility] [id number] [address] Feb, [facility] [address] [id number] [place] [id number] Feb, [facility] [address] [id number] [place] [id number] 09 Feb, 2013 [facility] [address] [id number] [place] [id number] Jan, [facility] [address] [id number] [place] [id number] Nov, [facility] [address] [id number] [place] [id number] Nov, [facility] [address]00565100[place] [address] Oct, [facility] [address] [facility] [id number][place] [address]- [address] Apr, [facility] [address] [facility] [id number][place] [address]- [address] Dec, [facility] [address] [facility] [id number], [place] [address]- 80[address] Nov, [facility] [address] [facility] [id number], [place] [address]- [address] Oct, [facility] [address] [facility] [id number][place] [address]- 7[address] Oct, [facility] [place] [address] [facility] [id number] [address]- [address] Sep, [facility] [place] [address] [facility] [id number][place] [address]- [address] Sep, [facility] [place] [address] [facility] [id number][place] [address] Sep, IMMUNIZATIONS No Known Immunizations SOCIAL HISTORY Never Assessed REASON FOR VISIT Pain management (chronic) Oneyda [facility] PLAN OF CARE Activity Details Follow Up 4 Weeks Reason:anxiety VITAL SIGNS Height 66 in 2018-06-26 Weight 296.8 lbs 2018-06-26 Temperature 97 degrees Fahrenheit 2018-06-26 Heart Rate 96 bpm 2018-06-26 Respiratory Rate 18 2018-06-26 BMI 47.90 kg/m2 2018-06-26 Blood pressure systolic 158 mmHg 2018-06-26 Blood pressure diastolic 90 mmHg 2018-06-26 MEDICATIONS Medication Instructions Dosage Frequency Start Date End Date Duration Status Albuterol Sulfate 90 mcg/actuation Inhalation every 8 hrs 2 puffs by Inhalation route every 4-6 hours as needed PRN cough or wheezing 8h May, Active Clonazepam 1 MG Orally Once a daymust last 28 d 1 tablet May, Active Amlodipine Besylate 5 mg Orally Once a day 1.5 tablet 24h Nov, Active Tramadol HCl 50 mg Orally 2 times a day must lasst 28 d 1 tablet as needed Apr, Active Losartan Potassium 100 mg Orally Once a day 1 tablet 24h Nov, Active Fluoxetine 10 mg Orally Once a day 2 capsule in the morning 24h May, Active CompAir Nebulizer - as directed Feb, 5 days Active Aspir-81 81 MG Orally Once a day 1 tablet 24h Active Atenolol 100 mg Orally Once a day 1 tablet 24h Nov, Active Ibuprofen 800 MG Orally Three times a day 1 tablet with food or milk as needed 8h May, Active Nitroglycerin 0.4 MG Active RESULTS No Results PROCEDURES No Known [...] History Generalized anxiety disorder-[facility] 09/2016 Hospitalization History Diverticulitis-[facility]. Left AMA 04/06/17 Hospitalization History ER visit for migraine 08/2017 Hospitalization History ER visit for chest pain 01/2018
--- OUTSIDE RECORDS SUMMARY | 2018-09-26 10:55 | XMS REPORT ---
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 Phone NUZHAT FRANKS Unavailable PROBLEMS Type Condition ICD9-CM Code DMC29-OF Code Onset Dates Condition Status SNOMED Code Problem RUQ abdominal pain R10.11 Active 206145821 Problem Lumbago with sciatica, right side M54.41 Active 605697926 Problem Diverticulitis of large intestine, unspecified bleeding status, unspecified complication status K57.32 Active 0393887 Problem Dysthymia F34.1 Active 78073003 Problem BMI 45.0-49.9, adult Z68.42 Active 835562172 Problem Tobacco abuse Z72.0 Active 387714965 Problem Other chronic pain G89.29 Active 39602258 Problem Sleep apnea, unspecified type G47.30 Active 09402082 Problem Morbid obesity E66.01 Active 981197672 Problem CAP (community acquired pneumonia) J18.9 Active 155043768 Problem Essential (primary) hypertension I10 Active 49146794 Problem Diverticulitis of large intestine without perforation or abscess without bleeding K57.32 Active 9317638 Problem Insomnia, unspecified type G47.00 Active 389625557 Problem Anxiety F41.9 Active 63633890 Problem Migraine with aura and without status migrainosus, not intractable G43.109 Active 9157801 Problem Elevated LDL cholesterol level E78.0 Active 999656336 Problem Biliary dyskinesia K82.8 Active 489256200 ALLERGIES Substance Reaction Event Type Date Status Lisinopril cough Drug Allergy May, Active BuSpar suicidal thoughts, increased anxiety Drug Allergy May, Active ENCOUNTERS Encounter Location Date Diagnosis [facility] [address] [id number] [place] [id number] Aug, [facility] 120 [facility] [id number] [place] [id number] Jul, [facility] [address] [place] [address] [id number] Jun, BMI 45.0-49.9, adult Z68.42 ; Essential (primary) hypertension I10 ; Dysthymia F34.1 ; Lumbago with sciatica, right side M54.41 and Mild intermittent asthma with acute exacerbation J45.21 [facility] [id number] [place] [address] [id number] Jun, [facility] IN [facility] [id number] [place] [address] Jun, Chest congestion R09.89 ; Cough R05 and BMI 45.0-49.9, adult Z68.42 [address] [place] [address] [id number] Jun, Dental examination Z01.20 [place] [id number] [place] [address] [id number] May, Essential (primary) hypertension I10 ; Lumbago with sciatica, right side M54.41 ; Anxiety F41.9 and BMI 45.0-49.9, adult Z68.[address] [place] [address] [id number] May, Essential (primary) hypertension I10 ; Other chest pain R07.89 ; Dyspnea on exertion R06.09 ; Tobacco abuse Z72.0 ; Sleep apnea, unspecified type G47.30 ; BMI 45.0-49.9, adult Z68.42 and Morbid obesity E66.01 [facility] [address] [place] [address] May, BMI 45.0-49.9, adult Z68.42 [id number] [place] [address] [id number] May, BMI 45.0-49.9, adult Z68.42 ; Lumbago with sciatica, right side M54.41 ; Anxiety F41.9 and Essential (primary) hypertension I10 [facility] [address] [id number], [place] [address] Apr, [facility] [id number] [place] [id number] Apr, Anxiety F41.9 [facility] [id number] [place] [address] [id number] Apr, Anxiety F41.9 [facility] [id number] [place] [address] [id number] Apr, [facility] [address] [id number] [id number] Apr, Dental examination Z01.20 [facility] [id number] [place] [address] [id number] Apr, Anxiety F41.9 [facility] [id number] [place] [address] [id number] Apr, Anxiety F41.9 and Lumbago with sciatica, right side M54.41 [facility] [id number] [place] [address] [id number] March, Anxiety F41.9 [facility] [id number] [place] [address] [id number] March, Diverticulitis of large intestine, unspecified bleeding status, unspecified complication status K57.32 ; Anxiety F41.9 and Essential (primary) hypertension I10 [facility] [id number] [place] [address] [id number] March, RUQ abdominal pain R10.11 [facility] [address]005[address]100[place], [place] [address] Feb, Wheezing on auscultation R06.2 [facility] [id number] [place] [id number] Feb, Anxiety F41.9 [facility] [id number] [place] [address] [id number] Feb, [facility] [id number] [place] [id number] Jan, BMI 50.0-59.9, adult Z68.43 ; Anxiety F41.9 ; Chest pain, unspecified type R07.9 and Essential (primary) hypertension I10 [address] [id number] [id number] Jan, BMI 45.0-49.9, adult Z68.42 ; Morbid obesity E66.01 ; Chest pain, non-cardiac R07.89 ; Anxiety F41.9 ; Essential (primary) hypertension I10 and Tobacco abuse Z72.[address] [id number][place] [id number] Jan, Essential (primary) hypertension I10 [address] [place] [address] [id number] Dec, Essential (primary) hypertension I10 ; Migraine with aura and without status migrainosus, not intractable G43.109 ; Viral syndrome B34.9 and Lumbago with sciatica, right side M54.41 [id number] [place] [address] [id number] Nov, BMI 45.0-49.9, adult Z68.42 ; Migraine with aura and without status migrainosus, not intractable G43.109 and Essential (primary) hypertension I10 [id number] [place] [address] [id number] Nov, Essential (primary) hypertension I10 [place] [id number] [place] [id number] Nov, BMI 45.0-49.9, adult Z68.42 ; Essential (primary) hypertension I10 ; Anxiety F41.9 ; Lumbago with sciatica, right side M54.41 and Other chronic pain G89.29 [facility] [id number] [place] [id number] Nov, [id number] [place] [address] [id number] Aug, RUQ abdominal pain R10.11 [facility] [id number] [place] [address] [id number] Aug, Essential (primary) hypertension I10 and Anxiety F41.9 [facility] [id number] [place] [id number] May, Essential (primary) hypertension I10 and Anxiety F41.9 [facility] [id number] [place] [address] [id number] March, Diverticulitis of large intestine, unspecified bleeding status, unspecified complication status K57.32 [facility] [address]005[address]100[place] [address] March, [facility] [id number] [place] [address] [id number] March, [facility] [id number] [place] [address] [id number] March, Chest wall pain R07.89 and Dysuria R30.0 [facility] [id number] [place] [address] [id number] March, Anxiety F41.9 [facility] [id number] [place] [address] [id number] Feb, Biliary dyskinesia K82.8 [facility] [id number] [place] [address] [id number] Feb, Biliary dyskinesia K82.8 [facility] [id number] [place] [address] [id number] Jan, Essential (primary) hypertension I10 and RUQ abdominal pain R10.11 [facility] [id number] [place] [address] [id number] Jan, Essential (primary) hypertension I10 and Anxiety F41.9 [facility] [id number] [place] [address] [id number] Dec, Essential (primary) hypertension I10 [facility] [id number] [place] [address] [id number] Nov, Migraine with aura and without status migrainosus, not intractable G43.109 and Essential (primary) hypertension I10 [facility] [id number] [place] [id number] Nov, Anxiety F41.9 ; Migraine with aura and without status migrainosus, not intractable G43.109 and Insomnia, unspecified type G47.00 [facility] [id number] [place] [address] [id number] Oct, Migraine with aura and without status migrainosus, not intractable G43.109 [address] [id number] [place] [address] [id number] Oct, Anxiety F41.9 and Essential (primary) hypertension I10 [place] [address] [address] Oct, [facility] [address] [address] Sep, [address] [id number] Sep, Diverticulitis of large intestine without perforation or abscess without bleeding K57.32 and Anxiety F41.[address] [id number] Aug, Diverticulitis of large intestine without perforation or abscess without bleeding K57.32 [place] [address] [address] Aug, [address] [id number] Aug, [place] [address] [address] Aug, [place] [id number] [place] [address] [id number] Aug, [facility] [address] [id number] Jul, Ingrown left big toenail L60.[address] [id number] Jul, [address] [id number] Jul, Ingrowing toenail of right foot L60.[address] [id number] Apr, [address] [place] [address] [id number] Apr, RUQ abdominal pain R10.11 ; Fatty liver disease, nonalcoholic K76.0 ; Hx of hyperglycemia Z86.39 ; Elevated alanine aminotransferase (ALT) level R74.0 ; Elevated LDL cholesterol level E78.0 and Prediabetes R73.09 [address] [place] [address] [id number] Apr, RUQ abdominal pain R10.11 ; Mild persistent asthma without complication J45.30 ; Anxiety F41.9 and Essential (primary) hypertension I10 [address] [id number] March, Wheezing R06.2 and Cough R05 [address] [id number] March, [address] [id number] March, [address] [id number] March, Acute severe exacerbation of asthma J45.51 ; Cough R05 and Cough headache G44.[address] [id number] Feb, Mild intermittent asthma with acute exacerbation J45.21 and Transient insomnia F51.[address] [id number] Feb, Pigmented skin lesion of uncertain nature L81.9 [address] [place] [place] [address] [id number] Feb, Anxiety F41.9 and Essential (primary) hypertension I10 [address] [place] [place] [address] [id number] Jan, [address] [id number] Jan, Routine gynecological examination Z01.419 and Encounter for Papanicolaou smear for cervical cancer screening Z12.[address] [id number] Jan, Essential (primary) hypertension I10 and Anxiety F41.9 [facility] [id number] [place] [id number] Dec, Essential (primary) hypertension I10 and Anxiety F41.9 [facility] [id number] [place] [id number] Nov, Essential (primary) hypertension I10 [facility] [address] [facility] [id number][place] [id number] Aug, [facility] [id number] [place] [id number] Aug, CAP (community acquired pneumonia) J18.9 [facility] [id number] [place] [address] [id number] Aug, CAP (community acquired pneumonia) J18.9 [facility] [address] [facility] [id number][place] [id number] Aug, CAP (community acquired pneumonia) J18.9 [facility] [address] [place] [id number] Aug, CAP (community acquired pneumonia) J18.9 and Essential (primary) hypertension I10 [facility] [address] [place] [id number] Aug, CAP (community acquired pneumonia) J18.9 [facility] [address]00565100[place], [place] [address] Apr, [facility] [id number] [place] [address] Feb, [facility] [id number] [place] [address]73- [address] Feb, [facility] [id number] [place] [address] [id number] Jan, [facility] [id number] [place] [address]- [address] Jan, [facility] [id number] [place] [address]- [address] Nov, [facility] [address] [id number] [place] [id number] Nov, [facility] [address] [facility] [id number], [place] [address] Nov, [facility] [address] [id number] [place] [id number] Oct, [facility] [address] [facility] [id number], [place] [address] Oct, [facility] [address] [id number] [place] [id number] Sep, [facility] [address] [facility] [id number], [place] [address] Sep, [facility] [address] [id number] [place] [id number] Jun, [facility] [address] [id number], [place] [address] Jun, [facility] [address] [id number] [place] [id number] Jun, [facility] [address] [id number], [place] [address] Jun, [facility] [address] [id number] [place] [id number] May, [facility] [address] [facility] [id number], [place] [address] May, [facility] [address] [id number] [place] [id number] Dec, [facility] [address] [facility] [id number], [place] [address] Dec, [facility] [address] [id number] [place] [id number] Feb, [facility] [address] [id number] [place] [id number] Feb, [facility] [address] [id number] [place] [id number] Feb, [facility] [address] [facility] [id number], [place] [address] 16 Feb, 2013 [facility] [address] [id number] [place] [id number] 15 Feb, 2013 [facility] [address] [id number] [place] [id number] 15 Feb, 2013 [facility] [address] [facility] [id number], [place] [address] 14 Feb, 2013 [facility] [address] [facility] [id number], [place] [address] Feb, [facility] [address] [facility] [id number], [place] [address] Feb, [facility] [address] [id number] [place] [id number] Feb, [facility] [address] [id number] [place] [id number] 09 Feb, 2013 [facility] [address] [id number] [place] [id number] Jan, [facility] [address] [id number] [place] [id number] Nov, [facility] [address] [id number] [place] [id number] Nov, [facility] [address]00565100[place], [place] [address] Oct, [facility] [address] [facility] [id number], [place] [address] Apr, [facility] [address] [facility] [id number], [place] [address] Dec, [facility] [address] [facility] [id number], [place] [address] Nov, [facility] [address] [facility] [id number], [place] [address] Oct, [facility] [address] [facility] [id number], [place] [address] Oct, [facility] [address] [facility] [id number] [place] [address] Sep, [facility] [address] [facility] [id number], [place] [address] Sep, [facility] [address] [facility] [id number], [place] [address] Sep, IMMUNIZATIONS No Known Immunizations SOCIAL HISTORY Never Assessed REASON FOR VISIT Pain management (chronic), needs contract and pdm Maikol RN PLAN OF CARE Activity Details Follow Up 4 Weeks Reason:htn VITAL SIGNS Height 66 in 2018-05-29 Weight 298.8 lbs 2018-05-29 Temperature 97.8 degrees Fahrenheit 2018-05-29 Heart Rate 86 bpm 2018-05-29 Respiratory Rate 18 2018-05-29 BMI 48.22 kg/m2 2018-05-29 Blood pressure systolic 160 mmHg 2018-05-29 Blood pressure diastolic 88 mmHg 2018-05-29 MEDICATIONS Medication Instructions Dosage Frequency Start Date End Date Duration Status Nitroglycerin 0.4 MG Active Amlodipine Besylate 5 mg Orally Once a day 1.5 tablet 24h Nov, Active Atenolol 100 mg Orally Once a day 1 tablet 24h Nov, Active Albuterol Sulfate 90 mcg/actuation Inhalation every 8 hrs 2 puffs by Inhalation route every 4-6 hours as needed PRN cough or wheezing 8h May, Active Losartan Potassium 100 mg Orally Once a day 1 tablet 24h Nov, Active Ibuprofen 800 MG Orally Three times a day 1 tablet with food or milk as needed 8h May, Active Tramadol HCl 50 mg Orally 2 times a day must lasst 28 d 1 tablet as needed Apr, Active Clonazepam ODT 1 mg Orally no more than twice a day, must last 28 days 1 tablet on the tongue and allow to dissolve Feb, Active Sertraline HCl 50 mg Orally Once a day 1.5 tablet 24h Feb, Active CompAir Nebulizer - as directed Feb, 5 days Active RESULTS No Results PROCEDURES No [...] History Generalized anxiety disorder-[facility] 09/2016 Hospitalization History Diverticulitis-[facility]. Left AMA 04/06/17 Hospitalization History ER visit for migraine 08/2017 Hospitalization History ER visit for chest pain 01/2018
--- OUTSIDE RECORDS SUMMARY | 2018-09-26 10:55 | XMS REPORT ---
Author Author NUZHAT FRANKS [facility] Address [address] [place] [address] Care Team Providers Care Adventure Education Teacher Name Role Phone NUZHAT FRANKS Unavailable PROBLEMS Type Condition ICD9-CM Code ZYO95-US Code Onset Dates Condition Status SNOMED Code Problem RUQ abdominal pain R10.11 Active 228849241 Problem Lumbago with sciatica, right side M54.41 Active 326905299 Problem Diverticulitis of large intestine, unspecified bleeding status, unspecified complication status K57.32 Active 6089408 Problem Dysthymia F34.1 Active 40456856 Problem BMI 45.0-49.9, adult Z68.42 Active 951011845 Problem Tobacco abuse Z72.0 Active 284681493 Problem Other chronic pain G89.29 Active 91758854 Problem Sleep apnea, unspecified type G47.30 Active 79586723 Problem Morbid obesity E66.01 Active 157831275 Problem CAP (community acquired pneumonia) J18.9 Active 836784548 Problem Essential (primary) hypertension I10 Active 61991638 Problem Diverticulitis of large intestine without perforation or abscess without bleeding K57.32 Active 6623012 Problem Insomnia, unspecified type G47.00 Active 093645540 Problem Anxiety F41.9 Active 67952376 Problem Migraine with aura and without status migrainosus, not intractable G43.109 Active 2476698 Problem Elevated LDL cholesterol level E78.0 Active 550549804 Problem Biliary dyskinesia K82.8 Active 113334820 ALLERGIES No Information ENCOUNTERS Encounter Location Date Diagnosis [facility] [id number] [id number] Aug, [facility] [address] [facility] [id number] [place] [id number] Jul, [facility] 120 [facility] [id number] [place] [id number] Jun, BMI 45.0-49.9, adult Z68.42 ; Essential (primary) hypertension I10 ; Dysthymia F34.1 ; Lumbago with sciatica, right side M54.41 and Mild intermittent asthma with acute exacerbation J45.21 [facility] [id number] [place] [id number] Jun, [facility] [address], [place] [address] Jun, Chest congestion R09.89 ; Cough R05 and BMI 45.0-49.9, adult Z68.[address] [id number] SPRINGS[place] [id number] Jun, Dental examination Z01.20 [facility] [address] [place] [address] [id number] May, Essential (primary) hypertension I10 ; Lumbago with sciatica, right side M54.41 ; Anxiety F41.9 and BMI 45.0-49.9, adult Z68.[address] [id number] [place] [id number] May, Essential (primary) hypertension I10 ; Other chest pain R07.89 ; Dyspnea on exertion R06.09 ; Tobacco abuse Z72.0 ; Sleep apnea, unspecified type G47.30 ; BMI 45.0-49.9, adult Z68.42 and Morbid obesity E66.01 [facility] [address], [place] [address] May, BMI 45.0-49.9, adult Z68.42 [facility] [address]00565100[place] [id number] May, BMI 45.0-49.9, adult Z68.42 ; Lumbago with sciatica, right side M54.41 ; Anxiety F41.9 and Essential (primary) hypertension I10 [facility] [address], [place] [address] Apr, [facility] [id number] [place] [address] [id number] Apr, Anxiety F41.9 [facility] [place] [id number] [place] [address] Apr, Anxiety F41.9 [facility] [place] [id number] [place] [address] [id number] Apr, [facility] [place] [address] [id number] [place] [id number] Apr, Dental examination Z01.20 [facility] [place] [id number] [place] [address] [id number] Apr, Anxiety F41.9 [facility] [place] [id number] [place] [address] [id number] Apr, Anxiety F41.9 and Lumbago with sciatica, right side M54.41 [facility] [place] [id number] [place] [address] [id number] March, Anxiety F41.9 [facility] [place] [id number] [place] [address] [id number] March, Diverticulitis of large intestine, unspecified bleeding status, unspecified complication status K57.32 ; Anxiety F41.9 and Essential (primary) hypertension I10 [facility] [place] [id number] [place] [id number] March, RUQ abdominal pain R10.11 [facility] [address], [place] [address] Feb, Wheezing on auscultation R06.2 [facility] [place] [id number] [place] [id number] Feb, Anxiety F41.9 [facility] [place] [id number] [place] [id number] Feb, [facility] [place] [id number] [place] [address] [id number] Jan, BMI 50.0-59.9, adult Z68.43 ; Anxiety F41.9 ; Chest pain, unspecified type R07.9 and Essential (primary) hypertension I10 [facility] [place] [address] [id number] [place] [id number] Jan, BMI 45.0-49.9, adult Z68.42 ; Morbid obesity E66.01 ; Chest pain, non-cardiac R07.89 ; Anxiety F41.9 ; Essential (primary) hypertension I10 and Tobacco abuse Z72.0 [facility] [address] [facility] [address] [id number] [place] [id number] Jan, Essential (primary) hypertension I10 [facility] [id number] [place] [address] [id number] Dec, Essential (primary) hypertension I10 ; Migraine with aura and without status migrainosus, not intractable G43.109 ; Viral syndrome B34.9 and Lumbago with sciatica, right side M54.41 [facility] [place] [id number] [place] [address] [id number] Nov, BMI 45.0-49.9, adult Z68.42 ; Migraine with aura and without status migrainosus, not intractable G43.109 and Essential (primary) hypertension I10 [facility] [id number] [place] [address] [id number] Nov, Essential (primary) hypertension I10 [facility] [id number] [place] [address] [id number] Nov, BMI 45.0-49.9, adult Z68.42 ; Essential (primary) hypertension I10 ; Anxiety F41.9 ; Lumbago with sciatica, right side M54.41 and Other chronic pain G89.29 [facility] [place] [id number] [place] [address] [id number] Nov, [facility] [place] [id number] [place] [address] [id number] Aug, RUQ abdominal pain R10.11 [facility] [place] [address] [place] [address] [id number] Aug, Essential (primary) hypertension I10 and Anxiety F41.9 [facility] [place] [id number] [place] [address] [id number] May, Essential (primary) hypertension I10 and Anxiety F41.9 [facility] [address] [id number] [place] [id number] March, Diverticulitis of large intestine, unspecified bleeding status, unspecified complication status K57.32 [facility] [address] [id number] [address] March, [facility] [id number] [place] [id number] March, [facility] [place] [id number] [place] [address] [id number] March, Chest wall pain R07.89 and Dysuria R30.0 [facility] [id number] [place] [address] [id number] March, Anxiety F41.9 [facility] [id number] [place] [address] [id number] Feb, Biliary dyskinesia K82.8 [facility] [address] [id number] Feb, Biliary dyskinesia K82.8 [facility] [id number] [place] [id number] Jan, Essential (primary) hypertension I10 and RUQ abdominal pain R10.11 [facility] [id number] [place] [address] [id number] Jan, Essential (primary) hypertension I10 and Anxiety F41.9 [facility] [address]00565100[place] [id number] Dec, Essential (primary) hypertension I10 [facility] [id number] [place] [id number] Nov, Migraine with aura and without status migrainosus, not intractable G43.109 and Essential (primary) hypertension I10 [facility] [address]00565100[place] [id number] Nov, Anxiety F41.9 ; Migraine with aura and without status migrainosus, not intractable G43.109 and Insomnia, unspecified type G47.00 [facility] [address]00565100[place] [address] Oct, Migraine with aura and without status migrainosus, not intractable G43.109 [facility] [id number] [place] [address] [id number] Oct, Anxiety F41.9 and Essential (primary) hypertension I10 [facility] [id number] [place] [address] Oct, [facility] [address] [address] Sep, [facility] [id number] [place] [address] [id number] Sep, Diverticulitis of large intestine without perforation or abscess without bleeding K57.32 and Anxiety F41.9 [facility] [address] [place] [address] [id number] Aug, Diverticulitis of large intestine without perforation or abscess without bleeding K57.32 [facility] [id number] [place] [address] Aug, [facility] [id number] [place] [address] [id number] Aug, [facility] [id number] [place] [address] 2546 Aug, [facility] [id number] [place] [address] [id number] Aug, [facility] [address] [place] [address] [id number] Jul, Ingrown left big toenail L60.0 [facility] [id number] [place] [address] [id number] Jul, [facility] [address] [place] [address] [id number] Jul, Ingrowing toenail of right foot L60.0 [facility] [address] [place] [address] [id number] Apr, [facility] [id number] [place] [address] [id number] Apr, RUQ abdominal pain R10.11 ; Fatty liver disease, nonalcoholic K76.0 ; Hx of hyperglycemia Z86.39 ; Elevated alanine aminotransferase (ALT) level R74.0 ; Elevated LDL cholesterol level E78.0 and Prediabetes R73.09 [id number] [place] [address] [id number] 08 Apr, 2016 RUQ abdominal pain R10.11 ; Mild persistent asthma without complication J45.30 ; Anxiety F41.9 and Essential (primary) hypertension I10 [address] [id number] March, Wheezing R06.2 and Cough R05 [address] [id number] March, [address] [id number] March, [address] [id number] March, Acute severe exacerbation of asthma J45.51 ; Cough R05 and Cough headache G44.83 [id number] [place] [address] [id number] 18 Feb, 2016 Mild intermittent asthma with acute exacerbation J45.21 and Transient insomnia F51.02 [id number] [place] [address] [id number] Feb, Pigmented skin lesion of uncertain nature L81.[address] [id number] Feb, 2016 Anxiety F41.9 and Essential (primary) hypertension I10 [id number] [place] [address] [id number] 31 Jan, [address] [id number] 23 Jan, 2016 Routine gynecological examination Z01.419 and Encounter for Papanicolaou smear for cervical cancer screening Z12.4 [id number] [place] [address] [id number] 07 Jan, 2016 Essential (primary) hypertension I10 and Anxiety F41.[address] [id number] Dec, Essential (primary) hypertension I10 and Anxiety F41.9 [facility] [id number] [place] [id number] Nov, Essential (primary) hypertension I[address] [facility] [address] [id number] [place] [id number] Aug, [facility] [id number] [place] [id number] Aug, CAP (community acquired pneumonia) J18.9 [facility] [id number] [place] [address] [id number] Aug, CAP (community acquired pneumonia) J18.9 [facility] [address] [facility] [address] [id number] [place]INGS[place] [id number] Aug, CAP (community acquired pneumonia) J18.9 [facility] [place] [id number] [place] [address] [id number] Aug, CAP (community acquired pneumonia) J18.9 and Essential (primary) hypertension I10 [facility] [id number] [place] [id number] Aug, CAP (community acquired pneumonia) J18.9 [facility] [id number] [place] [address]113- [address]596 Apr, [facility] [address] [id number], [place] [address] Feb, [facility] [id number] [place] [address] 94290- 8751 Feb, [facility] [place] [id number] [place] [id number] Jan, [facility] [id number] [place] [address] 34231- 2[address] Jan, [facility] [id number] [place] [address] 06103- 2546 Nov, [facility] [place] [id number] [place] [address] [id number] Nov, [facility] [place] [facility] [address] [facility] [id number] [place] [address] Nov, [facility] [place] [address] [id number] [place] [id number] Oct, [facility] [place] [facility] [address] [facility] [id number] [place] [address]- [address] Oct, [facility] [place] [address] [id number] [place] [id number] Sep, [facility] [place] [facility] [address] [facility] [id number] [place] [address]- [address] Sep, [facility] [place] [address] [id number] [place] [id number] Jun, [facility] [place] [facility] [address] [place] [address] Jun, [facility] [place] [address] [id number] [place] [id number] Jun, [facility] [place] [facility] [address] [id number] [place] [address] Jun, [facility] [place] [address] [facility] [id number] [place] [id number] May, [facility] [place] [facility] [address]00565100[place], [place] [address] May, [facility] [place] [address] [id number] [place] [id number] Dec, [facility] [place] [facility] [address] [facility] [id number], [place] [address] Dec, [facility] [place] [address] [id number] [place] [id number] Feb, [facility] [place] [address] [id number] [place] [id number] Feb, [facility] [place] [address] [id number] [place] [id number] Feb, [facility] [place] [facility] [address] [id number], [place] [address] 16 Feb, 2013 [facility] [place] [address] [id number] [place] [id number] 15 Feb, 2013 [facility] [place] [address] [id number] [place] [id number] 15 Feb, 2013 [facility] [place] [facility] [address] [facility] [id number] [place] [address]- 2546 14 Feb, 2013 [facility] [place] [facility] [address] [facility] [id number] [place] [address]- 0446 Feb, [facility] [place] [facility] [address] [id number] [place] [address]- 4986 12 Feb, 2013 [facility] [place] [address] [id number] [place] [id number] Feb, [facility] [place] [address] [id number] [place] [id number] 09 Feb, 2013 [facility] [place] [address] [id number] [place] [id number] Jan, [facility] [place] [address] [id number] [place] [id number] Nov, [facility] [place] [address] [id number] [place] [id number] Nov, [facility] [place] [facility] [address] [facility] [id number], [place] [address]- [address] Oct, [facility] [place] [facility] [address] [facility] [id number], [place] [address]- 6[address] Apr, [facility] [place] [facility] [address] [facility] [id number], [place] [address]- 26[address] Dec, [facility] [place] [facility] [address] [facility] [id number], [place] [address]- [address] Nov, [facility] [place] [facility] [address] [facility] [id number], [place] [address]- 9[address] Oct, [facility] [place] [facility] [address] [facility] [id number], [place] [address]- [address] Oct, [facility] [place] [facility] [address] [facility] [id number] [place] [address]- 3394 Sep, [facility] [address] [facility] [id number] [place] [address]- 49[address] Sep, [facility] [address] [facility] [id number] [place] [address] Sep, IMMUNIZATIONS No Known Immunizations SOCIAL HISTORY Never Assessed REASON FOR VISIT Lab (walk-in) PLAN OF CARE VITAL SIGNS MEDICATIONS Unknown Medications RESULTS No Results PROCEDURES Procedure Date Ordered Result Body Site 09 PANEL (PROFILE 1) June 01, 2018 DRUG SCREENING TRAMADOL June 01, 2018 INSTRUCTIONS MEDICATIONS ADMINISTERED No Known Medications MEDICAL (GENERAL) HISTORY Type Description Date Medical History hypertension Medical History asthma Medical History CT 08/2016 ED-sigmoid diverticulitis, hepatic steatosis, stable bilateral low density adrenal adenomas Medical History GERD Medical History IBSD Medical History sleep apnea Surgical History cholecystectomy 03/24/17 Hospitalization History [facility]verticulitis-[facility] 08/2016 Hospitalization History Generalized anxiety disorder-[facility] 09/2016 Hospitalization History Diverticulitis-[facility]. Left AMA 04/06/17 Hospitalization History ER visit for migraine 08/2017 Hospitalization History ER visit for chest pain 01/2018
--- OUTSIDE RECORDS SUMMARY | 2018-09-26 10:56 | XMS REPORT ---
Author Author NUZHAT FRANKS [facility] Address [address] [place] [address] Care Team Providers Care Highway Safety Engineer Name Role Phone NUZHAT FRANKS Unavailable PROBLEMS Type Condition ICD9-CM Code BKE80-KF Code Onset Dates Condition Status SNOMED Code Problem RUQ abdominal pain R10.11 Active 229277594 Problem Lumbago with sciatica, right side M54.41 Active 994784457 Problem Diverticulitis of large intestine, unspecified bleeding status, unspecified complication status K57.32 Active 5130321 Problem Dysthymia F34.1 Active 40467104 Problem BMI 45.0-49.9, adult Z68.42 Active 283433205 Problem Tobacco abuse Z72.0 Active 673868180 Problem Other chronic pain G89.29 Active 03883400 Problem Sleep apnea, unspecified type G47.30 Active 34453213 Problem Morbid obesity E66.01 Active 465823612 Problem CAP (community acquired pneumonia) J18.9 Active 955664320 Problem Essential (primary) hypertension I10 Active 86889089 Problem Diverticulitis of large intestine without perforation or abscess without bleeding K57.32 Active 4497137 Problem Insomnia, unspecified type G47.00 Active 415726837 Problem Anxiety F41.9 Active 70642737 Problem Migraine with aura and without status migrainosus, not intractable G43.109 Active 6764271 Problem Elevated LDL cholesterol level E78.0 Active 941331452 Problem Biliary dyskinesia K82.8 Active 554793336 ALLERGIES No Information ENCOUNTERS Encounter Location Date Diagnosis [facility] [id number] [id number] Aug, [facility] [address] [facility] [id number] [place] [id number] Jul, [facility] [address] [facility] [id number][place] [id number] Jun, BMI 45.0-49.9, adult Z68.42 ; Essential (primary) hypertension I10 ; Dysthymia F34.1 ; Lumbago with sciatica, right side M54.41 and Mild intermittent asthma with acute exacerbation J45.21 [facility] [id number], [place] [id number] Jun, [facility] [address]00565100[place], [place] [address] Jun, Chest congestion R09.89 ; Cough R05 and BMI 45.0-49.9, adult Z68.[address] [id number], [place] [id number] Jun, Dental examination Z01.20 [facility] [id number] [place] [address] [id number] May, Essential (primary) hypertension I10 ; Lumbago with sciatica, right side M54.41 ; Anxiety F41.9 and BMI 45.0-49.9, adult Z68.[address] [id number], [place] [id number] May, Essential (primary) hypertension I10 ; Other chest pain R07.89 ; Dyspnea on exertion R06.09 ; Tobacco abuse Z72.0 ; Sleep apnea, unspecified type G47.30 ; BMI 45.0-49.9, adult Z68.42 and Morbid obesity E66.01 [facility] [place] [address]00565100[place], [place] [address] May, BMI 45.0-49.9, adult Z68.42 [facility] [address]65100[place], [place] [id number] May, BMI 45.0-49.9, adult Z68.42 ; Lumbago with sciatica, right side M54.41 ; Anxiety F41.9 and Essential (primary) hypertension I10 [facility] [place] [address]00565100[place], [place] [address] Apr, [facility] [id number] [place] [address] [id number] Apr, Anxiety F41.9 [facility] [place] [id number], [place] [id number] Apr, Anxiety F41.9 [facility] [id number] [place] [address] [id number] Apr, [facility] [place] [address] [id number], [place] [address] Apr, Dental examination Z01.20 [facility] [id number] [place] [address] [id number] Apr, Anxiety F41.9 [facility] [id number] [place] [address] [id number] Apr, Anxiety F41.9 and Lumbago with sciatica, right side M54.41 [facility] [id number] [place] [address] [id number] March, Anxiety F41.9 [facility] [place] [id number] [place] [address] [id number] March, Diverticulitis of large intestine, unspecified bleeding status, unspecified complication status K57.32 ; Anxiety F41.9 and Essential (primary) hypertension I10 [facility] [place] [id number], [place] [id number] March, RUQ abdominal pain R10.11 [facility] [address]00565100[place], [place] [address] Feb, Wheezing on auscultation R06.2 [facility] [place] [id number], [place] [id number] Feb, Anxiety F41.9 [facility] [place] [id number], [place] [id number] Feb, [facility] [id number] [place] [address] [id number] Jan, BMI 50.0-59.9, adult Z68.43 ; Anxiety F41.9 ; Chest pain, unspecified type R07.9 and Essential (primary) hypertension I10 [facility] [place] [address] [id number] [place] [id number] Jan, BMI 45.0-49.9, adult Z68.42 ; Morbid obesity E66.01 ; Chest pain, non-cardiac R07.89 ; Anxiety F41.9 ; Essential (primary) hypertension I10 and Tobacco abuse Z72.0 [facility] [address] [facility] [facility] [address] [id number][place] [id number] Jan, Essential (primary) hypertension I10 [facility] [id number] [place] [address] [id number] Dec, Essential (primary) hypertension I10 ; Migraine with aura and without status migrainosus, not intractable G43.109 ; Viral syndrome B34.9 and Lumbago with sciatica, right side M54.41 [facility] [place] [id number] [place] [address] [id number] Nov, BMI 45.0-49.9, adult Z68.42 ; Migraine with aura and without status migrainosus, not intractable G43.109 and Essential (primary) hypertension I10 [facility] [id number] [place] [address] [id number] Nov, Essential (primary) hypertension I10 [facility] [id number] [place] [address] [id number] Nov, BMI 45.0-49.9, adult Z68.42 ; Essential (primary) hypertension I10 ; Anxiety F41.9 ; Lumbago with sciatica, right side M54.41 and Other chronic pain G89.29 [facility] [place] [id number] [place] [address] [id number] Nov, [facility] [id number] [place] [address] [id number] Aug, RUQ abdominal pain R10.11 [facility] [id number] [place] [address] [id number] Aug, Essential (primary) hypertension I10 and Anxiety F41.9 [facility] [place] [id number] [place] [address] [id number] May, Essential (primary) hypertension I10 and Anxiety F41.9 [facility] [address] [id number], [place] [id number] March, Diverticulitis of large intestine, unspecified bleeding status, unspecified complication status K57.32 [facility] [place] [address] [id number] [address] March, [facility] [id number], [place] [id number] March, [facility] [id number] [place] [address] [id number] March, Chest wall pain R07.89 and Dysuria R30.0 [facility] [id number] [place] [address] [id number] March, Anxiety F41.9 [facility] [id number] [place] [address] [id number] Feb, Biliary dyskinesia K82.8 [facility] [address]65[address], [place] [id number] Feb, Biliary dyskinesia K82.8 [facility] [id number], [place] [id number] Jan, Essential (primary) hypertension I10 and RUQ abdominal pain R10.11 [facility] [id number] [place] [address] [id number] Jan, Essential (primary) hypertension I10 and Anxiety F41.9 [facility] [address]65[address], [place] [id number] Dec, Essential (primary) hypertension I10 [facility] [id number], [place] [id number] Nov, Migraine with aura and without status migrainosus, not intractable G43.109 and Essential (primary) hypertension I10 [facility] [address]65[address], [place] [id number] Nov, Anxiety F41.9 ; Migraine with aura and without status migrainosus, not intractable G43.109 and Insomnia, unspecified type G47.00 [facility] [address]65[address], [place] [id number] Oct, Migraine with aura and without status migrainosus, not intractable G43.109 [facility] [id number] [place] [address] [id number] Oct, Anxiety F41.9 and Essential (primary) hypertension I10 [facility] [place] [id number] [place] [address] Oct, [facility] [place] [address] [address] Sep, [facility] [id number] [place] [address] [id number] Sep, Diverticulitis of large intestine without perforation or abscess without bleeding K57.32 and Anxiety F41.9 [facility] [id number] [place] [address] [id number] Aug, Diverticulitis of large intestine without perforation or abscess without bleeding K57.32 [facility] [place] [id number] [place] [address] Aug, [facility] [id number] [place] [address] [id number] Aug, [facility] [place] [id number] [place] [address] 39143 2546 Aug, [facility] [id number] [place] [address] [id number] Aug, [facility] [id number] [place] [address] [id number] Jul, Ingrown left big toenail L60.0 [facility] [id number] [place] [address] [id number] Jul, [facility] [id number] [place] [address] [id number] Jul, Ingrowing toenail of right foot L60.0 [facility] [id number] [place] [address] [id number] Apr, [facility] [id number] [place] [address] [id number] Apr, RUQ abdominal pain R10.11 ; Fatty liver disease, nonalcoholic K76.0 ; Hx of hyperglycemia Z86.39 ; Elevated alanine aminotransferase (ALT) level R74.0 ; Elevated LDL cholesterol level E78.0 and Prediabetes R73.09 [id number] [place] [address] [id number] 08 Apr, 2016 RUQ abdominal pain R10.11 ; Mild persistent asthma without complication J45.30 ; Anxiety F41.9 and Essential (primary) hypertension I10 [address] [id number] March, Wheezing R06.2 and Cough R05 [address] [id number] March, [address] [id number] March, [address] [id number] March, Acute severe exacerbation of asthma J45.51 ; Cough R05 and Cough headache G44.83 [id number] [place] [address] [id number] 18 Feb, 2016 Mild intermittent asthma with acute exacerbation J45.21 and Transient insomnia F51.02 [address] [place] [address] [id number] Feb, Pigmented skin lesion of uncertain nature L81.[address] [id number] 07 Feb, 2016 Anxiety F41.9 and Essential (primary) hypertension I10 [id number] [place] [address] [id number] 31 Jan, [address] [id number] 23 Jan, 2016 Routine gynecological examination Z01.419 and Encounter for Papanicolaou smear for cervical cancer screening Z12.4 [id number] [place] [address] [id number] 07 Jan, 2016 Essential (primary) hypertension I10 and Anxiety F41.[address] [id number] Dec, Essential (primary) hypertension I10 and Anxiety F41.9 [facility] [id number], [place] [id number] Nov, Essential (primary) hypertension I[address] [facility] [address] [id number], [place] [id number] Aug, [facility] [id number], [place] [id number] Aug, CAP (community acquired pneumonia) J18.9 [facility] [id number] [place] [address] [id number] Aug, CAP (community acquired pneumonia) J18.9 [facility] [address] [facility] [address] [id number], [place] [id number] Aug, CAP (community acquired pneumonia) J18.9 [facility] [place] [id number] [place] [address] [id number] Aug, CAP (community acquired pneumonia) J18.9 and Essential (primary) hypertension I10 [facility] [id number], [place] [id number] Aug, CAP (community acquired pneumonia) J18.9 [facility] [address] [place] [address]60- 2566 Apr, [facility] [address] [id number], [place] [address] Feb, [facility] [place] [facility] [id number] [place] [address] 21196- 9056 Feb, [facility] [place] [id number], [place] [id number] Jan, [facility] [id number] [place] [address] 19968- 1806 Jan, [facility] [place] [id number] [place] [address] 56518- 2546 Nov, [facility] [place] [id number] [place] [address] [id number] Nov, [facility] [place] [facility] [address] [facility] [id number] [place] [address]- [address] Nov, [facility] [place] [address] [id number] [place] [id number] Oct, [facility] [place] [facility] [address] [facility] [id number] [place] [address]- 114[address] Oct, [facility] [place] [address] [id number] [place] [id number] Sep, [facility] [place] [facility] [address] [facility] [id number] [place] [address]- [address] Sep, [facility] [place] [address] [id number] [place] [id number] Jun, [facility] [place] [facility] [address] [place] [address]- 89[address] Jun, [facility] [place] [address] [id number] [place] [id number] Jun, [facility] [place] [facility] [address] [id number] [place] [address] Jun, [facility] [place] [address] [facility] [id number] [place] [id number] May, [facility] [place] [facility] [address]00565100[place], [place] [address] May, [facility] [place] [address] [id number] [place] [id number] Dec, [facility] [place] [facility] [address] [facility] [id number], [place] [address] Dec, [facility] [place] [address] [id number] [place] [id number] Feb, [facility] [place] [address] [id number] [place] [id number] Feb, [facility] [place] [address] [id number] [place] [id number] Feb, [facility] [place] [facility] [address] [id number], [place] [address] 16 Feb, 2013 [facility] [place] [address] [id number] [place] [id number] 15 Feb, 2013 [facility] [place] [address] [id number] [place] [id number] 15 Feb, 2013 [facility] [place] [facility] [address] [facility] [id number] [place] [address]- [address]46 14 Feb, 2013 [facility] [place] [facility] [address] [facility] [id number] [place] [address]- 5[address] Feb, [facility] [place] [facility] [address] [id number] [place] [address]- 59[address] 12 Feb, 2013 [facility] [place] [address] [id number] [place] [id number] Feb, [facility] [place] [address] [id number] [place] [id number] 09 Feb, 2013 [facility] [place] [address] [id number] [place] [id number] Jan, [facility] [place] [address] [id number] [place] [id number] Nov, [facility] [place] [address] [id number] [place] [id number] Nov, [facility] [place] [facility] [address] [facility] [id number], [place] [address] Oct, [facility] [place] [facility] [address] [facility] [id number], [place] [address]- 50[address] Apr, [facility] [place] [facility] [address] [facility] [id number], [place] [address]- [address] Dec, [facility] [place] [facility] [address] [facility] [id number], [place] [address]- [address] Nov, [facility] [place] [facility] [address] [facility] [id number], [place] [address]- 59[address] Oct, [facility] [place] [facility] [address] [facility] [id number], [place] [address]- 0[address] Oct, [facility] [place] [facility] [address] [facility] [id number] [place] [address]- 15[address] Sep, [facility] [place] [address] [facility] [id number] [place] [address]- 1696 Sep, [facility] [place] [address] [facility] [id number] [place] [address]- [address] Sep, IMMUNIZATIONS No Known Immunizations SOCIAL HISTORY Never Assessed REASON FOR VISIT Clonazepam PLAN OF CARE VITAL SIGNS MEDICATIONS Unknown Medications RESULTS No Results PROCEDURES No Known procedures INSTRUCTIONS MEDICATIONS ADMINISTERED No Known Medications MEDICAL (GENERAL) HISTORY Type Description Date Medical History hypertension Medical History asthma Medical History CT 08/2016 ED-sigmoid diverticulitis, hepatic steatosis, stable bilateral low density adrenal adenomas Medical History GERD Medical History IBSD Medical History sleep apnea Surgical History cholecystectomy 03/24/17 Hospitalization History Diverticulitis-[facility] 08/2016 Hospitalization History Generalized anxiety disorder-[facility] 09/2016 Hospitalization History Diverticulitis-[facility]. Left AMA 04/06/17 Hospitalization History ER visit for migraine 08/2017 Hospitalization History ER visit for chest pain 01/2018
--- OUTSIDE RECORDS SUMMARY | 2018-09-26 10:56 | XMS REPORT ---
Author Author NUZHAT FRANKS [facility] Address [address] [place] [address] Care Team Providers Care Mh Teacher Name Role Phone NUZHAT FRANKS Unavailable PROBLEMS Type Condition ICD9-CM Code [id number] Code Onset Dates Condition Status SNOMED Code Problem RUQ abdominal pain R10.11 Active 767401537 Problem Lumbago with sciatica, right side M54.41 Active 060570915 Problem Diverticulitis of large intestine, unspecified bleeding status, unspecified complication status K57.32 Active 8132014 Problem Dysthymia F34.1 Active 20920956 Problem BMI 45.0-49.9, adult Z68.42 Active 833324849 Problem Tobacco abuse Z72.0 Active 201811989 Problem Other chronic pain G89.29 Active 96643184 Problem Sleep apnea, unspecified type G47.30 Active 63573488 Problem Morbid obesity E66.01 Active 350782095 Problem CAP (community acquired pneumonia) J18.9 Active 095452045 Problem Essential (primary) hypertension I10 Active 27956867 Problem Diverticulitis of large intestine without perforation or abscess without bleeding K57.32 Active 6492896 Problem Insomnia, unspecified type G47.00 Active 011436727 Problem Anxiety F41.9 Active 21651891 Problem Migraine with aura and without status migrainosus, not intractable G43.109 Active 5807328 Problem Elevated LDL cholesterol level E78.0 Active 265165122 Problem Biliary dyskinesia K82.8 Active 048116941 ALLERGIES No Information ENCOUNTERS Encounter Location Date Diagnosis [facility] [id number] [id number] Aug, [facility] [address] [facility] [id number] [place] [id number] Jul, [facility] [address] [facility] [id number] [address] Jun, BMI 45.0-49.9, adult Z68.42 ; Essential (primary) hypertension I10 ; Dysthymia F34.1 ; Lumbago with sciatica, right side M54.41 and Mild intermittent asthma with acute exacerbation J45.21 [facility] [id number], [place] [id number] Jun, [facility] IN [facility] [address]00565100[place], [place] [address] Jun, Chest congestion R09.89 ; Cough R05 and BMI 45.0-49.9, adult Z68.[address] [id number][place] [id number] Jun, Dental examination Z01.20 [facility] [address] [place] [address] [id number] May, Essential (primary) hypertension I10 ; Lumbago with sciatica, right side M54.41 ; Anxiety F41.9 and BMI 45.0-49.9, adult Z68.[address] [id number][place] [id number] May, Essential (primary) hypertension I10 ; Other chest pain R07.89 ; Dyspnea on exertion R06.09 ; Tobacco abuse Z72.0 ; Sleep apnea, unspecified type G47.30 ; BMI 45.0-49.9, adult Z68.42 and Morbid obesity E66.01 [facility] [address]00565100[place], [place] [address] May, BMI 45.0-49.9, adult Z68.42 [facility] [address]00565100[place] [id number] May, BMI 45.0-49.9, adult Z68.42 ; Lumbago with sciatica, right side M54.41 ; Anxiety F41.9 and Essential (primary) hypertension I10 [facility] [address]00565100[place], [place] [address] Apr, [facility] [id number] [place] [address] [id number] Apr, Anxiety F41.9 [facility] [id number], [place] [id number] Apr, Anxiety F41.9 [facility] [id number] [place] [address] [id number] Apr, [facility] [address] [id number], [place] [id number] Apr, Dental examination Z01.20 [facility] [id number] [place] [address] [id number] Apr, Anxiety F41.9 [facility] [id number] [place] [address] [id number] Apr, Anxiety F41.9 and Lumbago with sciatica, right side M54.41 [facility] [id number] [place] [address] [id number] March, Anxiety F41.9 [facility] [id number] [place] [address] [id number] March, Diverticulitis of large intestine, unspecified bleeding status, unspecified complication status K57.32 ; Anxiety F41.9 and Essential (primary) hypertension I10 [facility] [id number], [place] [id number] March, RUQ abdominal pain R10.11 [facility] [address]65100[place], [place] [address] Feb, Wheezing on auscultation R06.2 [facility] [id number], [place] [id number] Feb, Anxiety F41.9 [facility] [id number], [place] [id number] Feb, [facility] [id number] [place] [address] [id number] Jan, BMI 50.0-59.9, adult Z68.43 ; Anxiety F41.9 ; Chest pain, unspecified type R07.9 and Essential (primary) hypertension I10 [facility] [address] [id number] [place] [id number] Jan, BMI 45.0-49.9, adult Z68.42 ; Morbid obesity E66.01 ; Chest pain, non-cardiac R07.89 ; Anxiety F41.9 ; Essential (primary) hypertension I10 and Tobacco abuse Z72.0 [facility] [address] [id number], [place] [id number] Jan, Essential (primary) hypertension I10 [facility] [id number] [place] [address] [id number] Dec, Essential (primary) hypertension I10 ; Migraine with aura and without status migrainosus, not intractable G43.109 ; Viral syndrome B34.9 and Lumbago with sciatica, right side M54.41 [facility] [id number] [place] [address] [id number] Nov, BMI 45.0-49.9, adult Z68.42 ; Migraine with aura and without status migrainosus, not intractable G43.109 and Essential (primary) hypertension I10 [facility] [id number] [place] [address] [id number] Nov, Essential (primary) hypertension I10 [facility] [id number] [place] [address] [id number] Nov, BMI 45.0-49.9, adult Z68.42 ; Essential (primary) hypertension I10 ; Anxiety F41.9 ; Lumbago with sciatica, right side M54.41 and Other chronic pain G89.29 [facility] [id number] [place] [address] [id number] Nov, [facility] [id number] [place] [address] [id number] Aug, RUQ abdominal pain R10.11 [facility] [id number] [place] [address] [id number] Aug, Essential (primary) hypertension I10 and Anxiety F41.9 [facility] [id number] [place] [address] [id number] May, Essential (primary) hypertension I10 and Anxiety F41.9 [facility] [address] [id number], [place] [id number] March, Diverticulitis of large intestine, unspecified bleeding status, unspecified complication status K57.32 [facility] [address] [id number] [address] March, [facility] [id number], [place] [id number] March, [facility] [id number] [place] [address] [id number] March, Chest wall pain R07.89 and Dysuria R30.0 [facility] [id number] [place] [address] [id number] March, Anxiety F41.9 [facility] [id number] [place] [address] [id number] Feb, Biliary dyskinesia K82.8 [facility] [address]00565100[place] [id number] Feb, Biliary dyskinesia K82.8 [facility] [id number], [place] [id number] Jan, Essential (primary) hypertension I10 and RUQ abdominal pain R10.11 [facility] [id number] [place] [address] [id number] Jan, Essential (primary) hypertension I10 and Anxiety F41.9 [facility] [address]00565100[place], [place] [id number] Dec, Essential (primary) hypertension I10 [facility] [id number], [place] [id number] Nov, Migraine with aura and without status migrainosus, not intractable G43.109 and Essential (primary) hypertension I10 [facility] [address]00565100[place], [place] [id number] Nov, Anxiety F41.9 ; Migraine with aura and without status migrainosus, not intractable G43.109 and Insomnia, unspecified type G47.00 [facility] [address]00565100[place], [place] [address] Oct, Migraine with aura and without status migrainosus, not intractable G43.109 [facility] [id number] [place] [address] [id number] Oct, Anxiety F41.9 and Essential (primary) hypertension I10 [facility] [id number] [place] [address] Oct, [facility] [address] [address]39[address] Sep, [facility] [id number] [place] [address] [id number] Sep, Diverticulitis of large intestine without perforation or abscess without bleeding K57.32 and Anxiety F41.9 [facility] [id number] [place] [address] [id number] Aug, Diverticulitis of large intestine without perforation or abscess without bleeding K57.32 [facility] [id number] [place] [address] Aug, [facility] [id number] [place] [address] [id number] Aug, [facility] [id number] [place] [address]46 Aug, [facility] [id number] [place] [address] [id number] Aug, [facility] [id number] [place] [address] [id number] Jul, Ingrown left big toenail L60.0 [facility] [id number] [place] [address] [id number] Jul, [facility] [id number] [place] [address] [id number] Jul, Ingrowing toenail of right foot L60.0 [facility] [id number] [place] [address] [id number] Apr, [facility] [id number] [place] [address] [id number] Apr, RUQ abdominal pain R10.11 ; Fatty liver disease, nonalcoholic K76.0 ; Hx of hyperglycemia Z86.39 ; Elevated alanine aminotransferase (ALT) level R74.0 ; Elevated LDL cholesterol level E78.0 and Prediabetes R73.09 [address] [place] [address] [id number] 08 Apr, 2016 RUQ abdominal pain R10.11 ; Mild persistent asthma without complication J45.30 ; Anxiety F41.9 and Essential (primary) hypertension I10 [address] [id number] March, Wheezing R06.2 and Cough R05 [address] [id number] March, [address] [id number] March, [address] [id number] March, Acute severe exacerbation of asthma J45.51 ; Cough R05 and Cough headache G44.83 [address] [place] [address] [id number] 18 Feb, 2016 Mild intermittent asthma with acute exacerbation J45.21 and Transient insomnia F51.02 [address] [place] [address] [id number] Feb, Pigmented skin lesion of uncertain nature L81.[address] [id number] 07 Feb, 2016 Anxiety F41.9 and Essential (primary) hypertension I10 [address] [place] [address] [id number] 31 Jan, [address] [id number] 23 Jan, 2016 Routine gynecological examination Z01.419 and Encounter for Papanicolaou smear for cervical cancer screening Z12.4 [address] [place] [address] [id number] 07 Jan, 2016 Essential (primary) hypertension I10 and Anxiety F41.[address], [place] [id number] Dec, Essential (primary) hypertension I10 and Anxiety F41.9 [facility] [id number], [place] [id number] Nov, Essential (primary) hypertension I[address] [facility] [address] [id number] [id number] Aug, [facility] [id number], [place] [id number] Aug, CAP (community acquired pneumonia) J18.9 [facility] [id number] [place] [address] [id number] Aug, CAP (community acquired pneumonia) J18.9 [facility] [address] [id number], [place] [id number] Aug, CAP (community acquired pneumonia) J18.9 [facility] [id number] [place] [address] [id number] Aug, CAP (community acquired pneumonia) J18.9 and Essential (primary) hypertension I10 [facility] [id number], [place] [id number] Aug, CAP (community acquired pneumonia) J18.9 [facility] [address] [place] [address] Apr, [facility] [address] [id number], [place] [address] Feb, [facility] [id number] [place] [address] Feb, [facility] [id number], [place] [id number] Jan, [facility] [id number] [place] [address] Jan, [facility] [id number] [place] [address]- [address] Nov, [facility] [id number] [place] [address] [id number] Nov, [facility] [place] [facility] [address] [facility] [id number] [place] [address] Nov, [facility] [place] [address] [id number] [place] [id number] Oct, [facility] [place] [facility] [address] [facility] [id number] [place] [address] Oct, [facility] [place] [address] [id number] [place] [id number] Sep, [facility] [place] [facility] [address] [facility] [id number] [place] [address]- [address] Sep, [facility] [place] [address] [id number] [place] [id number] Jun, [facility] [place] [facility] [address] [place] [address] Jun, [facility] [place] [address] [id number] [place] [id number] Jun, [facility] [place] [facility] [address] [id number] [place] [address] Jun, [facility] [place] [address] [facility] [id number] [place] [id number] May, [facility] [place] [facility] [address]00565100[place], [place] [address] May, [facility] [place] [address] [id number] [place] [id number] Dec, [facility] [place] [facility] [address] [facility] [id number], [place] [address] Dec, [facility] [place] [address] [id number] [place] [id number] Feb, [facility] [place] [address] [id number] [place] [id number] Feb, [facility] [place] [address] [id number] [place] [id number] Feb, [facility] [place] [facility] [address] [id number], [place] [address] 16 Feb, 2013 [facility] [place] [address] [id number] [place] [id number] 15 Feb, 2013 [facility] [place] [address] [id number] [place] [id number] 15 Feb, 2013 [facility] [place] [facility] [address] [facility] [id number] [place] [address]- [address] 14 Feb, 2013 [facility] [place] [facility] [address] [facility] [id number] [place] [address]- 5216 Feb, [facility] [place] [facility] [address] [id number] [place] [address]- 2816 12 Feb, 2013 [facility] [place] [address] [id number] [place] [id number] Feb, [facility] [place] [address] [id number] [place] [id number] 09 Feb, 2013 [facility] [place] [address] [id number] [place] [id number] Jan, [facility] [place] [address] [id number] [place] [id number] Nov, [facility] [place] [address] [id number] [place] [id number] Nov, [facility] [place] [facility] [address] [facility] [id number], [place] [address] Oct, [facility] [place] [facility] [address] [facility] [id number], [place] [address]- [address] Apr, [facility] [place] [facility] [address] [facility] [id number], [place] [address]- [address] Dec, [facility] [place] [facility] [address] [facility] [id number], [place] [address]- [address] Nov, [facility] [place] [facility] [address] [facility] [id number], [place] [address]- [address] Oct, [facility] [place] [facility] [address] [facility] [id number], [place] [address]- [address] Oct, [facility] [place] [facility] [address] [facility] [id number] [place] [address]- [address] Sep, [facility] [address] [facility] [id number] [place] [address]- 3[address] Sep, [facility] [address] [facility] [id number] [place] [address]- [address] Sep, IMMUNIZATIONS No Known Immunizations SOCIAL HISTORY Never Assessed REASON FOR VISIT COntrolled refill resent PLAN OF CARE VITAL SIGNS MEDICATIONS Medication Instructions Dosage Frequency Start Date End Date Duration Status Clonazepam ODT 1 mg Orally no more than twice a day, must last 28 days 1 tablet on the tongue and allow to dissolve Feb, 28 days Active RESULTS No Results PROCEDURES No [...]
--- OUTSIDE RECORDS SUMMARY | 2018-09-26 10:57 | XMS REPORT ---
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 Name Role Phone NUZHAT FRANKS Unavailable PROBLEMS Type Condition ICD9-CM Code [id number] Code Onset Dates Condition Status SNOMED Code Problem RUQ abdominal pain R10.11 Active 009482770 Problem Lumbago with sciatica, right side M54.41 Active 548422073 Problem Diverticulitis of large intestine, unspecified bleeding status, unspecified complication status K57.32 Active 6685855 Problem Dysthymia F34.1 Active 39813370 Problem BMI 45.0-49.9, adult Z68.42 Active 024215419 Problem Tobacco abuse Z72.0 Active 248726423 Problem Other chronic pain G89.29 Active 37982490 Problem Sleep apnea, unspecified type G47.30 Active 63173847 Problem Morbid obesity E66.01 Active 603802777 Problem CAP (community acquired pneumonia) J18.9 Active 539919383 Problem Essential (primary) hypertension I10 Active 96341911 Problem Diverticulitis of large intestine without perforation or abscess without bleeding K57.32 Active 5488346 Problem Insomnia, unspecified type G47.00 Active 692977627 Problem Anxiety F41.9 Active 59552156 Problem Migraine with aura and without status migrainosus, not intractable G43.109 Active 6513056 Problem Elevated LDL cholesterol level E78.0 Active 379874404 Problem Biliary dyskinesia K82.8 Active 557007880 ALLERGIES No Information ENCOUNTERS Encounter Location Date Diagnosis [facility] [id number] [id number] Aug, [facility] [address] [facility] [id number] [place] [id number] Jul, [facility] 120 [facility] [id number] [id number] Jun, BMI 45.0-49.9, adult Z68.42 ; Essential (primary) hypertension I10 ; Dysthymia F34.1 ; Lumbago with sciatica, right side M54.41 and Mild intermittent asthma with acute exacerbation J45.21 [facility] [id number], [place] [id number] Jun, [facility] [address]00565100[place] [address] Jun, Chest congestion R09.89 ; Cough R05 and BMI 45.0-49.9, adult Z68.[address] [id number], [place] [id number] Jun, Dental examination Z01.20 [facility] [id number] [place] [address] [id number] May, Essential (primary) hypertension I10 ; Lumbago with sciatica, right side M54.41 ; Anxiety F41.9 and BMI 45.0-49.9, adult Z68.[address] [id number][place] [id number] May, Essential (primary) hypertension I10 ; Other chest pain R07.89 ; Dyspnea on exertion R06.09 ; Tobacco abuse Z72.0 ; Sleep apnea, unspecified type G47.30 ; BMI 45.0-49.9, adult Z68.42 [address] E66.01 [facility] [address]00565100[place] [address] May, BMI 45.0-49.9, adult Z68.42 [facility] [address]00565100[place] [id number] May, BMI 45.0-49.9, adult Z68.42 ; Lumbago with sciatica, right side M54.41 ; Anxiety F41.9 and Essential (primary) hypertension I10 [facility] [address]00565100[place], [place] [address] Apr, [facility] [id number] [place] [address] [id number] Apr, Anxiety F41.9 [facility] [id number][place] [id number] Apr, Anxiety F41.9 [facility] [id number] [place] [address] [id number] Apr, [facility] [place] [address] [id number], [place] [id number] Apr, Dental examination Z01.20 [facility] [id number] [place] [address] [id number] Apr, Anxiety F41.9 [facility] [id number] [place] [address] [id number] Apr, Anxiety F41.9 and Lumbago with sciatica, right side M54.41 [facility] [id number] [place] [address] [id number] March, Anxiety F41.9 [facility] [id number] [place] [address] [id number] March, Diverticulitis of large intestine, unspecified bleeding status, unspecified complication status K57.32 ; Anxiety F41.9 and Essential (primary) hypertension I10 [facility] [id number], [place] [id number] March, RUQ abdominal pain R10.11 [facility] [address]00565100[place] [address] Feb, Wheezing on auscultation R06.2 [facility] [id number], [place] [id number] Feb, Anxiety F41.9 [facility] [id number], [place] [id number] Feb, [facility] [id number] [place] [address] [id number] Jan, BMI 50.0-59.9, adult Z68.43 ; Anxiety F41.9 ; Chest pain, unspecified type R07.9 and Essential (primary) hypertension I10 [facility] [place] [address] [id number] [place] [id number] Jan, BMI 45.0-49.9, adult Z68.42 ; Morbid obesity E66.01 ; Chest pain, non-cardiac R07.89 ; Anxiety F41.9 ; Essential (primary) hypertension I10 and Tobacco abuse Z72.0 [facility] [address] [facility] [address] [id number][place] [id number] Jan, Essential (primary) hypertension I10 [facility] [id number] [place] [address] [id number] Dec, Essential (primary) hypertension I10 ; Migraine with aura and without status migrainosus, not intractable G43.109 ; Viral syndrome B34.9 and Lumbago with sciatica, right side M54.41 [facility] [id number] [place] [address] [id number] Nov, BMI 45.0-49.9, adult Z68.42 ; Migraine with aura and without status migrainosus, not intractable G43.109 and Essential (primary) hypertension I10 [facility] [id number] [place] [address] [id number] Nov, Essential (primary) hypertension I10 [facility] [id number] [place] [address] [id number] Nov, BMI 45.0-49.9, adult Z68.42 ; Essential (primary) hypertension I10 ; Anxiety F41.9 ; Lumbago with sciatica, right side M54.41 and Other chronic pain G89.29 [facility] [id number] [place] [address] [phone] Nov, [facility] [id number] [place] [address] [id number] Aug, RUQ abdominal pain R10.11 [facility] [id number] [place] [address] [id number] Aug, Essential (primary) hypertension I10 and Anxiety F41.9 [facility] [id number] [place] [address] [id number] May, Essential (primary) hypertension I10 and Anxiety F41.9 [facility] [address] [id number] [id number] March, Diverticulitis of large intestine, unspecified bleeding status, unspecified complication status K57.32 [facility] [address] [id number] [address] March, [facility] [id number], [place] [id number] March, [facility] [id number] [place] [address] [id number] March, Chest wall pain R07.89 and Dysuria R30.0 [facility] [id number] [place] [address] [id number] March, Anxiety F41.9 [facility] [id number] [place] [address] [id number] Feb, Biliary dyskinesia K82.8 [facility] [address]00565100[place] [id number] Feb, Biliary dyskinesia K82.8 [facility] [id number], [place] [id number] Jan, Essential (primary) hypertension I10 and RUQ abdominal pain R10.11 [facility] [id number] [place] [address] [id number] Jan, Essential (primary) hypertension I10 and Anxiety F41.9 [facility] [address]00565100[place] [id number] Dec, Essential (primary) hypertension I10 [facility] [id number], [place] [id number] Nov, Migraine with aura and without status migrainosus, not intractable G43.109 and Essential (primary) hypertension I10 [facility] [address]00565100[place] [id number] Nov, Anxiety F41.9 ; Migraine with aura and without status migrainosus, not intractable G43.109 and Insomnia, unspecified type G47.00 [facility] [address]00565100[place] [id number] Oct, Migraine with aura and without status migrainosus, not intractable G43.109 [facility] [id number] [place] [address] [id number] Oct, Anxiety F41.9 and Essential (primary) hypertension I10 [facility] [id number] [place] [address] Oct, [facility] [address] [address] Sep, [facility] [id number] [place] [address] [id number] Sep, Diverticulitis of large intestine without perforation or abscess without bleeding K57.32 and Anxiety F41.9 [facility] [id number] [place] [address] [id number] Aug, Diverticulitis of large intestine without perforation or abscess without bleeding K57.32 [facility] [id number] [place] [address] Aug, [facility] [id number] [place] [id number] Aug, [facility] [id number] [place] [id number] Aug, [facility] [id number] [place] [address] [id number] Aug, [facility] [id number] [place] [address] [id number] Jul, Ingrown left big toenail L60.0 [facility] [id number] [place] [address] [id number] Jul, [facility] [id number] [place] [address] [id number] Jul, Ingrowing toenail of right foot L60.0 [facility] [id number] [place] [address] [id number] Apr, [facility] [id number] [place] [address] [id number] Apr, RUQ abdominal pain R10.11 ; Fatty liver disease, nonalcoholic K76.0 ; Hx of hyperglycemia Z86.39 ; Elevated alanine aminotransferase (ALT) level R74.0 ; Elevated LDL cholesterol level E78.0 and Prediabetes R73.09 [id number] [place] [address] [id number] Apr, 2016 RUQ abdominal pain R10.11 ; Mild persistent asthma without complication J45.30 ; Anxiety F41.9 and Essential (primary) hypertension I10 [address] [id number] March, Wheezing R06.2 and Cough R05 [address] [id number] March, [address] [id number] March, [address] [id number] March, Acute severe exacerbation of asthma J45.51 ; Cough R05 and Cough headache G44.83 [id number] [place] [address] [id number] 18 Feb, 2016 Mild intermittent asthma with acute exacerbation J45.21 and Transient insomnia F51.02 [id number] [place] [address] [id number] Feb, Pigmented skin lesion of uncertain nature L81.[address] [id number] Feb, 2016 Anxiety F41.9 and Essential (primary) hypertension I10 [id number] [place] [address] [id number] 31 Jan, [address] [id number] Jan, 2016 Routine gynecological examination Z01.419 and Encounter for Papanicolaou smear for cervical cancer screening Z12.4 [id number] [place] [address] [id number] 07 Jan, 2016 Essential (primary) hypertension I10 and Anxiety F41.[address] [id number] Dec, Essential (primary) hypertension I10 and Anxiety F41.9 [facility] [id number], [place] [id number] Nov, Essential (primary) hypertension I[address] [facility] [address] [id number] [id number] Aug, [facility] [id number], [place] [id number] Aug, CAP (community acquired pneumonia) J18.9 [facility] [id number] [place] [address] [id number] Aug, CAP (community acquired pneumonia) J18.9 [facility] [address] [facility] [address] [id number][place] [id number] Aug, CAP (community acquired pneumonia) J18.9 [facility] [id number] [place] [address] [id number] Aug, CAP (community acquired pneumonia) J18.9 and Essential (primary) hypertension I10 [facility] [id number][place] [id number] Aug, CAP (community acquired pneumonia) J18.9 [facility] [address] [place] [address]- [address]6 Apr, [facility] [address] [id number] [address] Feb, [facility] [id number] [place] [address]- 1642 Feb, [facility] [place] [id number], [place] [id number] Jan, [facility] [id number] [place] [address] 80093- [address] Jan, [facility] [id number] [place] [address] 71697- 2546 Nov, [facility] [id number] [place] [address] [id number] Nov, [facility] [place] [facility] [address] [facility] [id number] [place] [address] Nov, [facility] [place] [address] [id number] [place] [id number] Oct, [facility] [place] [facility] [address] [facility] [id number] [place] [address]- [address] Oct, [facility] [place] [address] [id number] [place] [id number] Sep, [facility] [place] [facility] [address] [facility] [id number] [place] [address]- [address] Sep, [facility] [place] [address] [id number] [place] [id number] Jun, [facility] [place] [facility] [address] [place] [address] Jun, [facility] [place] [address] [id number] [place] [id number] Jun, [facility] [place] [facility] [address] [id number] [place] [address] Jun, [facility] [place] [address] [facility] [id number] [place] [id number] May, [facility] [place] [facility] [address]00565100[place], [place] [address] May, [facility] [place] [address] [id number] [place] [id number] Dec, [facility] [place] [facility] [address] [facility] [id number], [place] [address] Dec, [facility] [place] [address] [id number] [place] [id number] Feb, [facility] [place] [address] [id number] [place] [id number] Feb, [facility] [place] [address] [id number] [place] [id number] Feb, [facility] [place] [facility] [address] [id number], [place] [address] 16 Feb, 2013 [facility] [place] [address] [id number] [place] [id number] 15 Feb, 2013 [facility] [place] [address] [id number] [place] [id number] 15 Feb, 2013 [facility] [place] [facility] [address] [facility] [id number] [place] [address]- [address] 14 Feb, 2013 [facility] [place] [facility] [address] [facility] [id number] [place] [address]- 9[address] Feb, [facility] [place] [facility] [address] [id number] [place] [address]- 0[address] 12 Feb, 2013 [facility] [place] [address] [id number] [place] [id number] Feb, [facility] [place] [address] [id number] [place] [id number] 09 Feb, 2013 [facility] [place] [address] [id number] [place] [id number] Jan, [facility] [place] [address] [id number] [place] [id number] Nov, [facility] [place] [address] [id number] [place] [id number] Nov, [facility] [place] [facility] [address] [facility] [id number], [place] [address]- [address] Oct, [facility] [place] [facility] [address] [facility] [id number] [address]- 9[address] Apr, [facility] [place] [facility] [address] [facility] [id number], [place] [address]- [address] Dec, [facility] [place] [facility] [address] [facility] [id number][place] [address]- 5[address] Nov, [facility] [place] [facility] [address] [facility] [id number], [place] [address]- 5697 Oct, [facility] [place] [facility] [address] [facility] [id number] [address]- 0617 Oct, [facility] [place] [facility] [address] [facility] [id number] [place] [address] Sep, [facility] [address] [facility] [id number] [place] [address] Sep, [facility] [address] [facility] [id number] [place] [address]- 6[address] Sep, IMMUNIZATIONS No Known Immunizations SOCIAL HISTORY Never Assessed REASON FOR VISIT Refill request PLAN OF CARE VITAL SIGNS MEDICATIONS Medication [...] apnea Surgical History cholecystectomy 03/24/17 Hospitalization History Diverticulitis-H 08/2016 Hospitalization History Generalized anxiety disorder-[facility] 09/2016 Hospitalization History Diverticulitis-[facility]. Left AMA 04/06/17 Hospitalization History ER visit for migraine 08/2017 Hospitalization History ER visit for chest pain 01/2018
--- OUTSIDE RECORDS SUMMARY | 2018-09-26 10:57 | XMS REPORT ---
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 Wildlife Manager Name Role Phone NIKA Bonilla Unavailable PROBLEMS Type Condition ICD9-CM Code AHZ25-EO Code Onset Dates Condition Status SNOMED Code Problem Biliary dyskinesia K82.8 Active 970582552 Problem Diverticulitis of large intestine, unspecified bleeding status, unspecified complication status K57.32 Active 7739990 Problem RUQ abdominal pain R10.11 Active 268418702 Problem BMI 45.0-49.9, adult Z68.42 Active 856026861 Problem Sleep apnea, unspecified type G47.30 Active 72362824 Problem Other chronic pain G89.29 Active 63285631 Problem Lumbago with sciatica, right side M54.41 Active 137226213 Problem Tobacco abuse Z72.0 Active 791175236 Problem Morbid obesity E66.01 Active 114504023 Problem CAP (community acquired pneumonia) J18.9 Active 929358713 Problem Elevated LDL cholesterol level E78.0 Active 720093015 Problem Diverticulitis of large intestine without perforation or abscess without bleeding K57.32 Active 0699944 Problem Essential (primary) hypertension I10 Active 89824462 Problem Insomnia, unspecified type G47.00 Active 661760930 Problem Anxiety F41.9 Active 10975587 Problem Migraine with aura and without status migrainosus, not intractable G43.109 Active 0800650 ALLERGIES Substance Reaction Event Type Date Status Lisinopril cough Drug Allergy Apr, Active BuSpar suicidal thoughts, increased anxiety Drug Allergy Apr, Active ENCOUNTERS Encounter Location Date Diagnosis [facility] [address] [id number] [place] [phone] Aug, [facility] [address] [id number] [place] [id number] Jun, [facility] [place] [id number] [place] [address] [id number] Jun, [facility] [id number] [place] [address] Jun, Chest congestion R09.89 ; Cough R05 and BMI 45.0-49.9, adult Z68.42 [id number] [place] [address] [id number] Jun, Dental examination Z01.20 [facility] [id number] [place] [address] [id number] May, Essential (primary) hypertension I10 ; Lumbago with sciatica, right side M54.41 ; Anxiety F41.9 and BMI 45.0-49.9, adult Z68.42 [facility] [place] [address] [id number] May, Essential (primary) hypertension I10 ; Other chest pain R07.89 ; Dyspnea on exertion R06.09 ; Tobacco abuse Z72.0 ; Sleep apnea, unspecified type G47.30 ; BMI 45.0-49.9, adult Z68.42 and Morbid obesity E66.01 [facility] [id number] [place] [address]2388- 1108 May, BMI 45.0-49.9, adult Z68.42 [facility] [id number] [place] [address] [id number] May, BMI 45.0-49.9, adult Z68.42 ; Lumbago with sciatica, right side M54.41 ; Anxiety F41.9 and Essential (primary) hypertension I10 [facility] [id number] [place] [address] 04130- 4232 Apr, [facility] [id number] [place] [address] [id number] Apr, Anxiety F41.9 [facility] [id number] [place] [address] [id number] Apr, Anxiety F41.9 [facility] [id number] [place] [id number] Apr, [facility] [place] [id number] [place] [phone] Apr, Dental examination Z01.20 [facility] [place] [id number] [place] [phone] 18 Apr, 2018 Anxiety F41.9 [facility] [place] [id number] [place] [address] [id number] Apr, Anxiety F41.9 and Lumbago with sciatica, right side M54.41 [facility] [place] [id number] [place] [address] [id number] March, Anxiety F41.9 [facility] [id number] [place] [address] [id number] March, Diverticulitis of large intestine, unspecified bleeding status, unspecified complication status K57.32 ; Anxiety F41.9 and Essential (primary) hypertension I10 [facility] [id number] [place] [id number] March, RUQ abdominal pain R10.11 [facility] [address]00565100[place], [place] [phone] Feb, Wheezing on auscultation R06.2 [facility] [id number] [place] [id number] Feb, Anxiety F41.9 [facility] [address]00565100[place] [id number] Feb, [facility] [place] [address]00565100[place] [id number] Jan, BMI 50.0-59.9, adult Z68.43 ; Anxiety F41.9 ; Chest pain, unspecified type R07.9 and Essential (primary) hypertension I10 [facility] Servin [facility] [id number] [place] [phone] Jan, BMI 45.0-49.9, adult Z68.42 ; Morbid obesity E66.01 ; Chest pain, non-cardiac R07.89 ; Anxiety F41.9 ; Essential (primary) hypertension I10 and Tobacco abuse Z72.0 [address] [id number] [place] [id number] Jan, Essential (primary) hypertension I10 [facility] [address] [id number] [place] [phone] Dec, Essential (primary) hypertension I10 ; Migraine with aura and without status migrainosus, not intractable G43.109 ; Viral syndrome B34.9 and Lumbago with sciatica, right side M54.41 [facility] [address] [facility] [id number] [place] [id number] Nov, BMI 45.0-49.9, adult Z68.42 ; Migraine with aura and without status migrainosus, not intractable G43.109 and Essential (primary) hypertension I10 [facility] [id number] [place] [address] [id number] Nov, Essential (primary) hypertension I10 [facility] [id number] [place] [id number] Nov, BMI 45.0-49.9, adult Z68.42 ; Essential (primary) hypertension I10 ; Anxiety F41.9 ; Lumbago with sciatica, right side M54.41 and Other chronic pain G89.29 [facility] [id number] [place] [id number] Nov, [facility] [id number] [place] [address] [id number] Aug, RUQ abdominal pain R10.11 [facility] [address] [id number] [place] [id number] Aug, Essential (primary) hypertension I10 and Anxiety F41.9 [facility] [id number] [place] [address] [id number] May, Essential (primary) hypertension I10 and Anxiety F41.9 [facility] [address] [id number] [place] [id number] March, Diverticulitis of large intestine, unspecified bleeding status, unspecified complication status K57.32 [facility] [address]00565100[place] [phone] March, [facility] [id number] [place] [id number] March, [facility] [id number] [place] [address] [id number] March, Chest wall pain R07.89 and Dysuria R30.0 [facility] [id number] [place] [address] [id number] March, Anxiety F41.9 [facility] [id number] [place] [address] [id number] Feb, Biliary dyskinesia K82.8 [facility] [id number] [place] [address] [id number] Feb, Biliary dyskinesia K82.8 [facility] [id number] [place] [address] [id number] Jan, Essential (primary) hypertension I10 and RUQ abdominal pain R10.11 [facility] [id number] [place] [id number] Jan, Essential (primary) hypertension I10 and Anxiety F41.9 [facility] [id number] [place] [address] [id number] Dec, Essential (primary) hypertension I10 [facility] [id number] [place] [address] [id number] Nov, Migraine with aura and without status migrainosus, not intractable G43.109 and Essential (primary) hypertension I10 [facility] [id number] [place] [id number] Nov, Anxiety F41.9 ; Migraine with aura and without status migrainosus, not intractable G43.109 and Insomnia, unspecified type G47.00 [facility] [id number] [place] [id number] Oct, Migraine with aura and without status migrainosus, not intractable G43.109 [facility] [id number] [place] [address] [id number] Oct, Anxiety F41.9 and Essential (primary) hypertension I10 [facility] [id number] [place] [address] 07282- 8614 Oct, [facility] [id number] [place] [address] 66885- 9155 Sep, [facility] [id number] [place] [address] [id number] Sep, Diverticulitis of large intestine without perforation or abscess without bleeding K57.32 and Anxiety F41.9 [facility] [id number] [place] [address] [id number] Aug, Diverticulitis of large intestine without perforation or abscess without bleeding K57.32 [facility] [id number] [place] [address] 54637- 7340 Aug, [facility] [address] [id number] Aug, [address] [id number] [place] [address] Aug, [facility] [id number] [place] [address] [id number] Aug, [address] [id number] Jul, Ingrown left big toenail L60.[address] [id number] Jul, [address] [id number] Jul, Ingrowing toenail of right foot L60.0 [id number] [place] [address] [id number] Apr, [address] [id number] Apr, RUQ abdominal pain R10.11 ; Fatty liver disease, nonalcoholic K76.0 ; Hx of hyperglycemia Z86.39 ; Elevated alanine aminotransferase (ALT) level R74.0 ; Elevated LDL cholesterol level E78.0 and Prediabetes R73.09 [facility] [address] [place] [address] [id number] Apr, RUQ abdominal pain R10.11 ; Mild persistent asthma without complication J45.30 ; Anxiety F41.9 and Essential (primary) hypertension I10 [id number] [place] [address] [id number] March, Wheezing R06.2 and Cough R05 [address] [id number] March, [address] [id number] March, [address] [id number] March, Acute severe exacerbation of asthma J45.51 ; Cough R05 and Cough headache G44.83 [id number] [place] [address] [id number] 18 Feb, 2016 Mild intermittent asthma with acute exacerbation J45.21 and Transient insomnia F51.02 [id number] [place] [address] [id number] 13 Feb, 2016 Pigmented skin lesion of uncertain nature L81.[address] [id number] 07 Feb, 2016 Anxiety F41.9 and Essential (primary) hypertension I10 [id number] [place] [address] [id number] Jan, [id number] [place] [address] [id number] 23 Jan, 2016 Routine gynecological examination Z01.419 and Encounter for Papanicolaou smear for cervical cancer screening Z12.4 [id number] [place] [address] [id number] 07 Jan, 2016 Essential (primary) hypertension I10 and Anxiety F41.9 [id number] [place] [address] [id number] 10 Dec, 2015 Essential (primary) hypertension I10 and Anxiety F41.9 [id number] [place] [address] [id number] Nov, Essential (primary) hypertension I10 [facility] [address] [id number] [place] [id number] Aug, [facility] [place] [id number] [place] [id number] Aug, CAP (community acquired pneumonia) J18.9 [facility] [place] [id number] [place] [id number] Aug, CAP (community acquired pneumonia) J18.[address] [facility] [address] [id number] [place] [id number] Aug, CAP (community acquired pneumonia) J18.9 [facility] [place] [id number] [place] [address] [id number] Aug, CAP (community acquired pneumonia) J18.9 and Essential (primary) hypertension I10 [facility] [place] [address] [id number] [place] [id number] Aug, CAP (community acquired pneumonia) J18.9 [facility] [address] [place] [address] 76178- 9186 Apr, [facility] [place] [facility] [id number] [place] [address] [phone]- 0352 Feb, [facility] [place] [facility] [id number] [place] [address] 68944- 1187 Feb, [facility] [place] [address] [id number] [place] [id number] Jan, [facility] [place] [facility] [address] [place] [address] 42088- [phone] Jan, [facility] [place] [facility] [id number] [place] [address] 04938- 5506 Nov, [facility] [id number] [place] [id number] Nov, [facility] [place] [facility] [id number] [place] [address] 21758- [phone] Nov, [facility] [place] [id number] [place] [address] [id number] Oct, [facility] [address] [id number] [place] [address]- 9[address] Oct, [facility] [address] [id number] [place] [id number] Sep, [facility] [place] [facility] [address] [facility] [id number] [place] [address]- 7987 Sep, [facility] [address] [id number] [place] [phone] Jun, [facility] [place] [facility] [address] [facility] [id number] [place] [address]- 6589 Jun, [facility] [address] [id number] [place] [id number] Jun, [facility] [place] [facility] [address] [facility] [id number] [place] [address]- 6[address] Jun, [facility] [address] [id number] [place] [id number] May, [facility] [address] [facility] [id number] [place] [address]- 6[address] May, [facility] [address] [id number] [place] [id number] Dec, [facility] [place] [facility] [address] [facility] [id number] [address]- 0[address] Dec, [facility] [address] [id number] [place] [id number] Feb, [facility] [address] [id number] [place] [id number] Feb, [facility] [address] [id number] [place] [id number] Feb, [facility] [place] [facility] [address] [facility] [id number], [place] [address]- 6776 Feb, [facility] [address] [id number] [place] [id number] Feb, [facility] [address] [id number] [place] [id number] 15 Feb, 2013 [facility] [address] [facility] [id number], [place] [address]- 1462 14 Feb, 2013 [facility] [place] [facility] [address] [facility] [id number], [place] [address]- 2546 13 Feb, 2013 [facility] [place] [facility] [address] [facility] [id number], [place] [address]- 2546 12 Feb, 2013 [facility] [address] [id number] [place] [id number] Feb, [facility] [address] [id number] [place] [id number] Feb, [facility] [address] [id number] [place] [id number] Jan, [facility] [address] [id number] [place] [id number] Nov, [facility] [address] [id number] [place] [id number] Nov, [facility] [place] [facility] [address] [id number] [address]- 0506 Oct, [facility] [place] [facility] [address]00565100[place], [place] [address]- 92[address] Apr, [facility] [place] [facility] [address] [id number], [place] [address]- 7758 Dec, [facility] [place] [facility] [address]65100[place], [place] [address]- 3852 Nov, [facility] [place] [facility] [address] [facility] [id number], [place] [address]- 0926 Oct, [facility] [place] [facility] [address] [facility] [id number], [place] [address]- 9349 Oct, [facility] [place] [facility] [address] [facility] [id number], [place] [address]- 9229 Sep, [facility] [place] [facility] [address]65100[place], [place] [address]- 5073 Sep, [facility] [place] [facility] [address] [facility] [id number] [place] [address]- 7[address] Sep, IMMUNIZATIONS No Known Immunizations SOCIAL HISTORY Never Assessed REASON FOR VISIT Broke tooth/tawanna PLAN OF CARE Activity Details Follow Up 1 Week Reason:1 hour restorative VITAL SIGNS Height 66 in 2018-05-17 Blood pressure systolic 151 mmHg 2018-05-17 Blood pressure diastolic 99, 155 mmHg 2018-05-17 MEDICATIONS Medication Instructions Dosage Frequency Start Date End Date Duration Status Sertraline HCl 50 mg Orally Once a day 1.5 tablet 24h Feb, Active Atenolol 100 MG Orally Once a day 1 tablet 24h Nov, Active Albuterol Sulfate 90 mcg/actuation Inhalation every 8 hrs 2 puffs by Inhalation route every 4-6 hours as needed PRN cough or wheezing 8h May, Active Tramadol HCl 50 mg Orally 2 times a day 1 tablet as needed 12h Apr, Active Singulair 10 MG Orally Once a day 1 tablet in the evening 24h Not- Taking ZyrTEC 10 MG Orally Once a day 1 tablet 24h Not-Taking Clonazepam ODT 1 MG Orally no more than twice a day 1 tablet on the tongue and allow to dissolve Feb, 07 days Active Amlodipine Besylate 5 MG Orally Once a day 1 tablet 24h Nov, Active Losartan Potassium 100 mg Orally Once a day 1 tablet 24h Nov, Active Promethazine HCl 25 MG Orally every 12 hrs 1 tablet as needed 12h Nov, Not-Taking CompAir Nebulizer - as directed Feb, 5 days Active Flonase 50 MCG/DOSE Nasally Once a day 1 spray in each nostril 24h Not-Taking Nitroglycerin 0.4 MG Not-Taking RESULTS No Results PROCEDURES Procedure Date Ordered Result Body Site LTD ORAL EVALUATION - PROBLEM FOCUS May 17, 2018 INTRAORL-PERIAPICAL 1 FILM 36588 May 17, 2018 BITEWING - SINGLE FILM May 17, 2018 INSTRUCTIONS MEDICATIONS ADMINISTERED No Known Medications MEDICAL (GENERAL) HISTORY Type Description Date Medical History hypertension Medical History asthma Medical History CT 08/2016 ED-sigmoid diverticulitis, hepatic steatosis, stable bilateral low density adrenal adenomas Medical History GERD Medical History IBSD Medical History sleep apnea Surgical History cholecystectomy 03/24/17 Hospitalization History Diverticulitis-[facility] 08/2016 Hospitalization History Generalized anxiety disorder-[facility] 09/2016 Hospitalization History Diverticulitis-[facility] Left AMA 5/10/17 Hospitalization History ER visit for migraine 08/2017 Hospitalization History ER visit for chest pain 01/2018
--- OUTSIDE RECORDS SUMMARY | 2018-09-26 10:58 | XMS REPORT ---
Author Author NUZHAT FRANKS [facility] Address [address] [place] [address] Care Team Providers Care Ferry Hand Name Role Phone NUZHAT FRANKS Unavailable PROBLEMS Type Condition ICD9-CM Code SRA76-JG Code Onset Dates Condition Status SNOMED Code Problem Biliary dyskinesia K82.8 Active 791582731 Problem Diverticulitis of large intestine, unspecified bleeding status, unspecified complication status K57.32 Active 9926477 Problem RUQ abdominal pain R10.11 Active 868961983 Problem BMI 45.0-49.9, adult Z68.42 Active 315800310 Problem Sleep apnea, unspecified type G47.30 Active 98424794 Problem Other chronic pain G89.29 Active 05670418 Problem Lumbago with sciatica, right side M54.41 Active 891693803 Problem Tobacco abuse Z72.0 Active 224702204 Problem Morbid obesity E66.01 Active 889852089 Problem CAP (community acquired pneumonia) J18.9 Active 442435978 Problem Elevated LDL cholesterol level E78.0 Active 687940150 Problem Diverticulitis of large intestine without perforation or abscess without bleeding K57.32 Active 2282270 Problem Essential (primary) hypertension I10 Active 95697357 Problem Insomnia, unspecified type G47.00 Active 188319840 Problem Anxiety F41.9 Active 45114122 Problem Migraine with aura and without status migrainosus, not intractable G43.109 Active 4164361 ALLERGIES No Information ENCOUNTERS Encounter Location Date Diagnosis [facility] [address] [id number] [place] [id number] Aug, [facility] [address] [facility] [id number] [place] [id number] Jun, [facility] [address] [facility] [id number][place] [id number] Jun, [facility] [address] [address] Jun, Chest congestion R09.89 ; Cough R05 and BMI 45.0-49.9, adult Z68.[address] [id number] [place] [id number] Jun, Dental examination Z01.20 [facility] [id number] [place] [address] [id number] May, Essential (primary) hypertension I10 ; Lumbago with sciatica, right side M54.41 ; Anxiety F41.9 and BMI 45.0-49.9, adult Z68.[address] [id number] [place] [id number] May, Essential (primary) hypertension I10 ; Other chest pain R07.89 ; Dyspnea on exertion R06.09 ; Tobacco abuse Z72.0 ; Sleep apnea, unspecified type G47.30 ; BMI 45.0-49.9, adult Z68.42 and Morbid obesity E66.01 [facility] [id number] [place] [address] May, BMI 45.0-49.9, adult Z68.42 [facility] [id number] [place] [address] [id number] May, BMI 45.0-49.9, adult Z68.42 ; Lumbago with sciatica, right side M54.41 ; Anxiety F41.9 and Essential (primary) hypertension I10 [facility] [address] [place] [address] [phone]- [address]34 Apr, [facility] [id number] [place] [address] [id number] Apr, Anxiety F41.9 [facility] [id number] [place] [address] [id number] Apr, Anxiety F41.9 [facility] [id number], [place] [id number] Apr, [address] [id number] [place] [id number] Apr, Dental examination Z01.20 [facility] [id number] [place] [address] [id number] Apr, Anxiety F41.9 [facility] [place] [id number] [place] [address] [id number] Apr, Anxiety F41.9 and Lumbago with sciatica, right side M54.41 [facility] [id number] [place] [address] [id number] March, Anxiety F41.9 [place] [id number] [place] [address] [id number] March, Diverticulitis of large intestine, unspecified bleeding status, unspecified complication status K57.32 ; Anxiety F41.9 and Essential (primary) hypertension I10 [facility] [address] [place] [address] [id number] March, RUQ abdominal pain R10.11 [facility] [address] [address] Feb, Wheezing on auscultation R06.[address] [place] [address] [id number] Feb, Anxiety F41.9 [place] [id number] [place] [address] [id number] Feb, [address] [place] [address] [id number] Jan, BMI 50.0-59.9, adult Z68.43 ; Anxiety F41.9 ; Chest pain, unspecified type R07.9 and Essential (primary) hypertension I10 [facility] [address] [id number] [place] [phone] Jan, BMI 45.0-49.9, adult Z68.42 ; Morbid obesity E66.01 ; Chest pain, non-cardiac R07.89 ; Anxiety F41.9 ; Essential (primary) hypertension I10 and Tobacco abuse Z72.0 [facility] [address] [facility] [id number] [place] [id number] Jan, Essential (primary) hypertension I10 [facility] [id number] [place] [address] [id number] Dec, Essential (primary) hypertension I10 ; Migraine with aura and without status migrainosus, not intractable G43.109 ; Viral syndrome B34.9 and Lumbago with sciatica, right side M54.41 [facility] [id number] [place] [address] [id number] Nov, BMI 45.0-49.9, adult Z68.42 ; Migraine with aura and without status migrainosus, not intractable G43.109 and Essential (primary) hypertension I10 [place] [id number] [place] [address] [id number] Nov, Essential (primary) hypertension I10 [place] [id number] [place] [address] [id number] Nov, BMI 45.0-49.9, adult Z68.42 ; Essential (primary) hypertension I10 ; Anxiety F41.9 ; Lumbago with sciatica, right side M54.41 and Other chronic pain G89.29 [facility] [id number] [place] [address] [id number] Nov, [place] [id number] [place] [address] [id number] Aug, RUQ abdominal pain R10.11 [place] [id number] [place] [address] [id number] Aug, Essential (primary) hypertension I10 and Anxiety F41.9 [facility] [address] [place] [address] [id number] May, Essential (primary) hypertension I10 and Anxiety F41.9 [place] [id number] [place] [address] [id number] March, Diverticulitis of large intestine, unspecified bleeding status, unspecified complication status K57.32 [facility] [address]005[address]100[place] [phone] March, [facility] [address] [id number] [id number] March, [facility] [id number] [place] [address] [id number] March, Chest wall pain R07.89 and Dysuria R30.0 [facility] [id number] [place] [address] [id number] March, Anxiety F41.9 [facility] [id number] [place] [address] [id number] Feb, Biliary dyskinesia K82.8 [facility] [id number] [place] [address] [id number] Feb, Biliary dyskinesia K82.8 [facility] [address] [id number] Jan, Essential (primary) hypertension I10 and RUQ abdominal pain R10.11 [facility] [id number] [place] [address] [id number] Jan, Essential (primary) hypertension I10 and Anxiety F41.9 [facility] [id number] [place] [address] [id number] Dec, Essential (primary) hypertension I10 [facility] [id number] [place] [address] [id number] Nov, Migraine with aura and without status migrainosus, not intractable G43.109 and Essential (primary) hypertension I10 [facility] [id number] [place] [address] [id number] Nov, Anxiety F41.9 ; Migraine with aura and without status migrainosus, not intractable G43.109 and Insomnia, unspecified type G47.00 [facility] [id number] [place] [address] [id number] Oct, Migraine with aura and without status migrainosus, not intractable G43.109 [facility] [id number] [place] [address] [id number] Oct, Anxiety F41.9 and Essential (primary) hypertension I10 [facility] [id number] [place] [address] [id number] Oct, [facility] [address]100[place], [place] [address] Sep, [facility] [id number] [place] [address] [id number] Sep, Diverticulitis of large intestine without perforation or abscess without bleeding K57.32 and Anxiety F41.9 [facility] [id number] [place] [address] [id number] Aug, Diverticulitis of large intestine without perforation or abscess without bleeding K57.32 [facility] [id number] [place] [address] 66356- 2546 Aug, [facility] [id number] [place] [address] [id number] Aug, [facility] [address] [place] [address] 52208- 2546 Aug, [facility] [id number] [place] [address] [id number] Aug, [facility] [id number] [place] [address] [id number] Jul, Ingrown left big toenail L60.0 [facility] [id number] [place] [address] [id number] Jul, [facility] [id number] [place] [address] [id number] Jul, Ingrowing toenail of right foot L60.0 [facility] [id number] [place] [address] [id number] Apr, [facility] [id number] [place] [address] [id number] Apr, RUQ abdominal pain R10.11 ; Fatty liver disease, nonalcoholic K76.0 ; Hx of hyperglycemia Z86.39 ; Elevated alanine aminotransferase (ALT) level R74.0 ; Elevated LDL cholesterol level E78.0 and Prediabetes R73.09 [facility] [address] [place] [address] [id number] Apr, 2016 RUQ abdominal pain R10.11 ; Mild persistent asthma without complication J45.30 ; Anxiety F41.9 and Essential (primary) hypertension I10 [address] [place] [address] [id number] March, Wheezing R06.2 and Cough R05 [place] [id number] [place] [address] [id number] March, [place] [id number] [place] [address] [id number] March, [place] [id number] [place] [address] [id number] March, Acute severe exacerbation of asthma J45.51 ; Cough R05 and Cough headache G44.83 [place] [id number] [place] [address] [id number] Feb, 2016 Mild intermittent asthma with acute exacerbation J45.21 and Transient insomnia F51.02 [place] [address] [place] [address] [id number] Feb, Pigmented skin lesion of uncertain nature L81.9 [place] [address] [place] [address] [id number] Feb, Anxiety F41.9 and Essential (primary) hypertension I10 [address] [place] [address] [id number] Jan, 2016 [place] [address] [place] [address] [id number] Jan, Routine gynecological examination Z01.419 and Encounter for Papanicolaou smear for cervical cancer screening Z12.4 [address] [place] [address] [id number] Jan, 2016 Essential (primary) hypertension I10 and Anxiety F41.9 [address] [place] [address] [id number] Dec, Essential (primary) hypertension I10 and Anxiety F41.9 [place] [id number] [place] [address] [id number] Nov, Essential (primary) hypertension I10 [address] [id number] [place] [id number] Aug, [facility] [address] [facility] [id number][place] [id number] Aug, CAP (community acquired pneumonia) J18.9 [facility] [id number][place] [id number] Aug, CAP (community acquired pneumonia) J18.9 [facility] [address] [id number] [place] [id number] Aug, CAP (community acquired pneumonia) J18.9 [facility] [id number], [place] [id number] Aug, CAP (community acquired pneumonia) J18.9 and Essential (primary) hypertension I10 [facility] [address] [place] [address] [id number] Aug, CAP (community acquired pneumonia) J18.9 [facility] [address], [place] [address] 25[address] Apr, [facility] [id number] [place] [address] 72506- 2546 Feb, [facility] [address] [place] [address] 91921- 2546 Feb, [facility] [id number], [place] [id number] Jan, [facility] [address] [place] [address] 93778- 2546 Jan, [facility] [address] [place] [address] 79427- 2546 Nov, [facility] [address] [facility] [id number], [place] [id number] Nov, [facility] [id number] [place] [address] 97839- 2546 Nov, [facility] [address] [id number][place] [phone] Oct, [facility] [address] [place] [address] 10586- 2232 Oct, [facility] [address] [id number] [place] [id number] Sep, [facility] [address] [facility] [id number] [address]- [address] Sep, [facility] [address] [id number] [place] [id number] Jun, [facility] [address] [facility] [id number][place] [address] Jun, [facility] [address] [id number] [place] [id number] Jun, [facility] [address] [facility] [id number][place] [address] Jun, [facility] [address] [facility] [id number] [place] [id number] May, [facility] [address], [place] [address]- 24[address] May, [facility] [address] [facility] [id number], [place] [id number] Dec, [facility] [address] [facility] [id number], [place] [address]- [address] Dec, [facility] [address] [facility] [id number], [place] [id number] Feb, [facility] [address] [id number], [place] [id number] Feb, [facility] [address] [facility] [id number], [place] [id number] Feb, [facility] [address] [facility] [id number], [place] [address]- [address] 16 Feb, 2013 [facility] [address] [id number] [place] [id number] 15 Feb, 2013 [facility] [address] [facility] [id number], [place] [id number] 15 Feb, 2013 [facility] [address] [facility] [id number], [place] [address]- 2066 14 Feb, 2013 [facility] [address] [facility] [id number], [place] [address]- [address] Feb, [facility] [address] [facility] [id number], [place] [address]- 9566 Feb, [facility] [address] [id number] [place] [id number] Feb, [facility] [address] [id number] [place] [id number] Feb, [facility] [address] [id number] [place] [phone] Jan, [facility] [address] [id number] [place] [id number] Nov, [facility] [address] [facility] [id number] [place] [id number] Nov, [facility] [address], [place] [address]- 9[address] Oct, [facility] [address]100[place], [place] [address]- 6084 Apr, [facility] [address], [place] [address]- 2886 Dec, [facility] [address], [place] [address]- 9361 Nov, [facility] [address]100[place], [place] [address]- 1257 Oct, [facility] [address], [place] [address]- 0430 Oct, [facility] [address] [id number] [address]- 7416 Sep, [facility] [address]100[place], [place] [address]- 1490 Sep, [facility] [address] [id number] [address] 2486 Sep, IMMUNIZATIONS No Known Immunizations SOCIAL HISTORY Never Assessed REASON FOR VISIT RX-Klonopin refill PLAN OF CARE VITAL SIGNS MEDICATIONS Unknown [...] History Generalized anxiety disorder-[facility] 09/2016 Hospitalization History Diverticulitis-[facility]. Left AMA 04/06/17 Hospitalization History ER visit for migraine 08/2017 Hospitalization History ER visit for chest pain 01/2018
--- OUTSIDE RECORDS SUMMARY | 2018-09-26 10:58 | XMS REPORT ---
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 Name Role Phone NUZHAT FRANKS Unavailable PROBLEMS Type Condition ICD9-CM Code BTC81-BM Code Onset Dates Condition Status SNOMED Code Problem Biliary dyskinesia K82.8 Active 803824615 Problem Diverticulitis of large intestine, unspecified bleeding status, unspecified complication status K57.32 Active 3618494 Problem RUQ abdominal pain R10.11 Active 466052147 Problem BMI 45.0-49.9, adult Z68.42 Active 592157650 Problem Sleep apnea, unspecified type G47.30 Active 05886365 Problem Other chronic pain G89.29 Active 03818835 Problem Lumbago with sciatica, right side M54.41 Active 726398959 Problem Tobacco abuse Z72.0 Active 136975864 Problem Morbid obesity E66.01 Active 204039033 Problem CAP (community acquired pneumonia) J18.9 Active 501504082 Problem Elevated LDL cholesterol level E78.0 Active 135059269 Problem Diverticulitis of large intestine without perforation or abscess without bleeding K57.32 Active 7248086 Problem Essential (primary) hypertension I10 Active 81549959 Problem Insomnia, unspecified type G47.00 Active 131760995 Problem Anxiety F41.9 Active 37201297 Problem Migraine with aura and without status migrainosus, not intractable G43.109 Active 9791207 ALLERGIES No Information ENCOUNTERS Encounter Location Date Diagnosis [facility] [id number] [place] [id number] Aug, [facility] [address] [facility] [id number] [id number] Jun, [facility] [address] [id number] [address] Jun, Chest congestion R09.89 ; Cough R05 and BMI 45.0-49.9, adult Z68.42 [facility] [address] [facility] [address] [id number][place] [id number] Jun, Dental examination Z01.20 [facility] [id number], [place] [id number] May, Essential (primary) hypertension I10 ; Lumbago with sciatica, right side M54.41 ; Anxiety F41.9 and BMI 45.0-49.9, adult Z68.42 [facility] [place] [address] [facility] [address] [id number][place] [id number] May, Essential (primary) hypertension I10 ; Other chest pain R07.89 ; Dyspnea on exertion R06.09 ; Tobacco abuse Z72.0 ; Sleep apnea, unspecified type G47.30 ; BMI 45.0-49.9, adult Z68.42 and Morbid obesity E66.01 [place] [address]005[address]100[place] [address] May, BMI 45.0-49.9, adult Z68.42 [facility] [address]00565100[place] [id number] May, BMI 45.0-49.9, adult Z68.42 ; Lumbago with sciatica, right side M54.41 ; Anxiety F41.9 and Essential (primary) hypertension I10 [place] [address]00565100[place] [address] Apr, [facility] [place] [id number], [place] [id number] Apr, Anxiety F41.9 [facility] [id number], [place] [address] Apr, Anxiety F41.9 [facility] [id number], [place] [id number] Apr, [facility] [place] [address] [place], [place] [address] [id number][place] [id number] Apr, Dental examination Z01.20 [facility] [id number], [place] [address] Apr, Anxiety F41.9 [facility] [id number] [place] [id number] Apr, Anxiety F41.9 and Lumbago with sciatica, right side M54.41 [facility] [id number] [place] [address] [id number] March, Anxiety F41.9 [facility] [address] [place] [id number] [place] [address] [id number] March, Diverticulitis of large intestine, unspecified bleeding status, unspecified complication status K57.32 ; Anxiety F41.9 and Essential (primary) hypertension I10 [facility] [address] [place] [id number] [place] [address] [id number] March, RUQ abdominal pain R10.11 [facility] [address]005[address]100[place], [place] [phone] Feb, Wheezing on auscultation R06.2 [facility] [place] [address] [place] [id number] [place] [address] [id number] Feb, Anxiety F41.9 [facility] [address] [place] [id number] [place] [address] [id number] Feb, [facility] [address] [place] [id number] [place] [address] [id number] Jan, BMI 50.0-59.9, adult Z68.43 ; Anxiety F41.9 ; Chest pain, unspecified type R07.9 and Essential (primary) hypertension I10 [facility] [address] [id number][place] [id number] Jan, BMI 45.0-49.9, adult Z68.42 ; Morbid obesity E66.01 ; Chest pain, non-cardiac R07.89 ; Anxiety F41.9 ; Essential (primary) hypertension I10 and Tobacco abuse Z72.0 [facility] [address] [id number], [place] [id number] Jan, Essential (primary) hypertension I10 [facility] [address] [place] [id number] [id number] Dec, Essential (primary) hypertension I10 ; Migraine with aura and without status migrainosus, not intractable G43.109 ; Viral syndrome B34.9 and Lumbago with sciatica, right side M54.41 [facility] [id number] [place] [address] [id number] Nov, BMI 45.0-49.9, adult Z68.42 ; Migraine with aura and without status migrainosus, not intractable G43.109 and Essential (primary) hypertension I10 [facility] [address] [place] [id number] [place] [address] [id number] Nov, Essential (primary) hypertension I10 [facility] [address] [place] [id number] [place] [address] [id number] Nov, BMI 45.0-49.9, adult Z68.42 ; Essential (primary) hypertension I10 ; Anxiety F41.9 ; Lumbago with sciatica, right side M54.41 and Other chronic pain G89.29 [facility] [id number] [place] [address] [id number] Nov, [facility] [address] [place] [id number] [place] [address] [id number] Aug, RUQ abdominal pain R10.11 [facility] [address] [place] [id number] [place] [address] [id number] Aug, Essential (primary) hypertension I10 and Anxiety F41.9 [facility] [id number] [place] [address] [id number] May, Essential (primary) hypertension I10 and Anxiety F41.9 [facility] [address] [place] [id number] [place] [address] [id number] March, Diverticulitis of large intestine, unspecified bleeding status, unspecified complication status K57.32 [facility] [address]00565100[place] [address] March, [facility] [id number], [place] [id number] March, [facility] [address] [place] [id number] [place] [address] [id number] March, Dysuria R30.0 and Chest wall pain R07.89 [facility] [place] [address] [place] [id number] [place] [address] [id number] March, Anxiety F41.9 [facility] [place] [address] [place] [id number] [place] [address] [id number] Feb, Biliary dyskinesia K82.8 [facility] [place] [address] [id number] Feb, Biliary dyskinesia K82.8 [facility] [place] [address] [place] [id number] [place] [address] [id number] Jan, Essential (primary) hypertension I10 and RUQ abdominal pain R10.11 [facility] [place] [address] [place] [id number] [place] [address] [id number] Jan, Essential (primary) hypertension I[address] [facility] [address] [place] [id number] [place] [address] [id number] Dec, Essential (primary) hypertension I10 [facility] [address] [place] [id number] [place] [address] [id number] Nov, Migraine with aura and without status migrainosus, not intractable G43.109 and Essential (primary) hypertension I10 [facility] [address] [place] [id number] [place] [address] [id number] Nov, Anxiety F41.9 ; Migraine with aura and without status migrainosus, not intractable G43.109 and Insomnia, unspecified type G47.00 [facility] [address] [place] [id number] [place] [address] [id number] Oct, Migraine with aura and without status migrainosus, not intractable G43.109 [facility] [address] [place] [place] [id number] [place] [address] [id number] Oct, Anxiety F41.9 and Essential (primary) hypertension I10 [facility] [address] [place] [id number] [place] [address] Oct, [facility] [address] [place] [id number] [place] [address] Sep, [facility] [id number] [place] [address] [id number] Sep, Diverticulitis of large intestine without perforation or abscess without bleeding K57.32 and Anxiety F41.9 [facility] [address] [place] [id number] [place] [address] [id number] Aug, Diverticulitis of large intestine without perforation or abscess without bleeding K57.32 [place] [address] [place] [id number] [place] [address] Aug, [facility] [address] [place] [id number] [place] [address] [id number] Aug, [place] [address] [place] [id number] [place] [address] Aug, [facility] [address] [place] [id number] [place] [address] [id number] Aug, [facility] [address] [id number] Jul, Ingrown left big toenail L60.0 [facility] [address] [place] [id number] [place] [address] [id number] Jul, [facility] [address] [place] [id number] [place] [address] [id number] Jul, Ingrowing toenail of right foot L60.0 [facility] [address] [place] [id number] [place] [address] [id number] Apr, [place] [address] [place] [id number] [place] [address] [id number] Apr, RUQ abdominal pain R10.11 ; Fatty liver disease, nonalcoholic K76.0 ; Hx of hyperglycemia Z86.39 ; Elevated alanine aminotransferase (ALT) level R74.0 ; Elevated LDL cholesterol level E78.0 and Prediabetes R73.09 [place] [id number] [place] [address] [id number] Apr, RUQ abdominal pain R10.11 ; Mild persistent asthma without complication J45.30 ; Anxiety F41.9 and Essential (primary) hypertension I10 [place] [id number] [place] [address] [id number] March, Wheezing R06.2 and Cough R05 [place] [id number] [place] [address] [id number] March, [place] [id number] [place] [address] [id number] March, [place] [id number] [place] [address] [id number] March, Acute severe exacerbation of asthma J45.51 ; Cough R05 and Cough headache G44.83 [place] [id number] [place] [address] [id number] Feb, Mild intermittent asthma with acute exacerbation J45.21 and Transient insomnia F51.02 [place] [id number] [place] [address] [id number] Feb, Pigmented skin lesion of uncertain nature L81.9 [place] [id number] [place] [address] [id number] Feb, Anxiety F41.9 and Essential (primary) hypertension I10 [address] [place] [address] [id number] Jan, [place] [id number] [place] [address] [id number] Jan, Routine gynecological examination Z01.419 and Encounter for Papanicolaou smear for cervical cancer screening Z12.4 [address] [place] [address] [id number] Jan, Essential (primary) hypertension I10 and Anxiety F41.9 [address] [place] [address] [id number] Dec, Essential (primary) hypertension I10 and Anxiety F41.9 [address] [place] [address] [id number] Nov, Essential (primary) hypertension I10 [facility] [address] [id number], [place] [id number] Aug, [address] [place] [address] [id number] Aug, CAP (community acquired pneumonia) J18.9 [facility] [address] [id number], [place] [id number] Aug, CAP (community acquired pneumonia) J18.9 [facility] [address] [facility] [address] [id number], [place] [id number] Aug, CAP (community acquired pneumonia) J18.9 [facility] [place] [address] [id number], [place] [id number] Aug, CAP (community acquired pneumonia) J18.9 and Essential (primary) hypertension I10 [facility] [address] [facility] [id number], [place] [id number] Aug, CAP (community acquired pneumonia) J18.9 [facility] [place] [facility] [address]005[address]100[place] [address] Apr, [facility] [place] [facility] [address]00565100[place] [address] Feb, [facility] [place] [facility] [address] [place] [address]- 8466 Feb, [facility] [place] [address] [facility] [id number], [place] [id number] Jan, [facility] [address]00565100[place] [address] Jan, [facility] [address]00565100[place] [address] Nov, [facility] [address] [facility] [id number], [place] [id number] Nov, [facility] [place] [facility] [address] [place] [id number] [address]- [address] Nov, [facility] [id number], [place] [id number] Oct, [facility] [place] [facility] [address] [facility] [id number] [place] [address]- [address] Oct, [facility] [address] [facility] [id number], [place] [id number] Sep, [facility] [place] [facility] [address] [facility] [id number] [place] [address]- [address] Sep, [facility] [address] [id number] [place] [id number] Jun, [facility] [place] [facility] [address] [facility] [id number] [place] [address]- 10[address] Jun, [facility] [address] [facility] [id number] [place] [id number] Jun, [facility] [place] [facility] [address] [facility] [id number] [place] [address]- [address] Jun, [facility] [address] [id number] [place] [id number] May, [facility] [place] [facility] [address] [place] [id number] [address] May, [facility] [address] [place] [id number] [place] [id number] Dec, [facility] [address]00565100[place] [address] Dec, [facility] [address] [id number] [place] [id number] Feb, [facility] [address] [id number] [place] [id number] Feb, [facility] [address] [facility] [id number] [place] [id number] Feb, [facility] [place] [facility] [address]005[address]100[place] [address] 16 Feb, 2013 [facility] [address] [id number] [place] [id number] 15 Feb, 2013 [facility] [address] [facility] [id number] [place] [id number] 15 Feb, 2013 [facility] [place] [facility] [address] [facility] [id number] [place] [address]- 4[address] 14 Feb, 2013 [facility] [place] [facility] [address]005[address]100[place] [address]- [address] Feb, [facility] [address]100[place] [address]- [address] Feb, [facility] [id number], [place] [id number] Feb, [facility] [place] [id number], [place] [id number] Feb, [facility] [place] [id number], [place] [id number] Jan, [facility] [place] [id number], [place] [id number] Nov, [facility] [place] [id number], [place] [id number] Nov, [facility] [address] [place] [address] 03021- 2016 Oct, [facility] [address] [place] [id number] [place] [address] 79460- 6276 Apr, [facility] [address] [place] [address] 20652- 8858 Dec, [facility] [address] [place] [address] 03751- 5355 Nov, [facility] [address] [place] [id number] [place] [address] 24395- 9726 Oct, [facility] [address]00565100[place] [address]- 7[address] Oct, [facility] [address]100[place] [address]- 9[address] Sep, [facility] [address] [place] [address] 57937- 3697 Sep, [facility] [address]100[place] [address]- 7367 Sep, IMMUNIZATIONS No Known Immunizations SOCIAL HISTORY Never Assessed REASON FOR VISIT RX-Klonopin refill PLAN OF CARE VITAL SIGNS MEDICATIONS Medication Instructions Dosage Frequency Start Date End Date Duration Status Clonazepam ODT 1 MG Orally no more than twice a day 1 tablet on the tongue and allow to dissolve Feb, 07 days Active RESULTS No Results PROCEDURES No Known procedures INSTRUCTIONS MEDICATIONS ADMINISTERED No Known Medications MEDICAL (GENERAL) HISTORY Type Description Date Medical History hypertension Medical History asthma Medical History CT 08/2016 ED-sigmoid diverticulitis, hepatic steatosis, stable bilateral low density adrenal adenomas Medical History GERD Medical History IBSD Medical History sleep apnea Surgical History cholecystectomy 03/24/17 Hospitalization History Diverticulitis-[facility] 08/2016 Hospitalization History Generalized anxiety disorder-[facility] 09/2016 Hospitalization History Diverticulitis-[facility]. Left AMA 04/06/17 Hospitalization History ER visit for migraine 08/2017 Hospitalization History ER visit for chest pain 01/2018
--- OUTSIDE RECORDS SUMMARY | 2018-09-26 10:59 | XMS REPORT ---
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 Name Role Phone NUZHAT FRANKS Unavailable PROBLEMS Type Condition ICD9-CM Code FTO77-RQ Code Onset Dates Condition Status SNOMED Code Problem Biliary dyskinesia K82.8 Active 529288054 Problem Diverticulitis of large intestine, unspecified bleeding status, unspecified complication status K57.32 Active 7384239 Problem RUQ abdominal pain R10.11 Active 895650136 Problem BMI 45.0-49.9, adult Z68.42 Active 986943995 Problem Sleep apnea, unspecified type G47.30 Active 28381947 Problem Other chronic pain G89.29 Active 88994713 Problem Lumbago with sciatica, right side M54.41 Active 350453861 Problem Tobacco abuse Z72.0 Active 361428146 Problem Morbid obesity E66.01 Active 495017662 Problem CAP (community acquired pneumonia) J18.9 Active 046703060 Problem Elevated LDL cholesterol level E78.0 Active 712440508 Problem Diverticulitis of large intestine without perforation or abscess without bleeding K57.32 Active 9144642 Problem Essential (primary) hypertension I10 Active 35183611 Problem Insomnia, unspecified type G47.00 Active 519893515 Problem Anxiety F41.9 Active 91629498 Problem Migraine with aura and without status migrainosus, not intractable G43.109 Active 1947176 ALLERGIES No Information ENCOUNTERS Encounter Location Date Diagnosis [facility] [address] [id number] [place] [id number] Aug, [address] [id number] [id number] Jun, [facility] [address] [address] [id number] [place] [id number] Jun, Dental examination Z01.[address] [id number], [place] [id number] May, Essential (primary) hypertension I10 ; Lumbago with sciatica, right side M54.41 ; Anxiety F41.9 and BMI 45.0-49.9, adult Z68.42 [facility] [address] [facility] [address] [id number][place] [id number] May, Essential (primary) hypertension I10 ; Other chest pain R07.89 ; Dyspnea on exertion R06.09 ; Tobacco abuse Z72.0 ; Sleep apnea, unspecified type G47.30 ; BMI 45.0-49.9, adult Z68.42 and Morbid obesity E66.01 [place] [address] [place] [address] [id number] [place] [address] [id number]- 6108 05 May, 2018 BMI 45.0-49.9, adult Z68.42 [facility] [id number] [place] [address] [id number] May, BMI 45.0-49.9, adult Z68.42 ; Lumbago with sciatica, right side M54.41 ; Anxiety F41.9 and Essential (primary) hypertension I10 [place] [address] [place] [address] [id number] Apr, [facility] [id number] [place] [address] [id number] Apr, Anxiety F41.9 [facility] [id number] [place] [address] [id number] Apr, Anxiety F41.9 [facility] [id number] [place] [address] [id number] Apr, [facility] [place] [address] [place] [address] AVE [id number][place] [id number] Apr, Dental examination Z01.20 [facility] [id number] [place] [address] [id number] Apr, Anxiety F41.9 [facility] [id number] [place] [address] [id number] Apr, Anxiety F41.9 and Lumbago with sciatica, right side M54.41 [facility] [id number] [place] [address] [id number] March, Anxiety F41.9 [facility] [id number] [place] [address] [id number] March, Diverticulitis of large intestine, unspecified bleeding status, unspecified complication status K57.32 ; Anxiety F41.9 and Essential (primary) hypertension I10 [facility] [id number] [place] [address] [id number] March, RUQ abdominal pain R10.11 [facility] [id number] [phone] Feb, Wheezing on auscultation R06.2 [facility] [id number] [place] [address] [id number] Feb, Anxiety F41.9 [place] [id number] [place] [address] [id number] Feb, [facility] [id number] [place] [address] [id number] Jan, BMI 50.0-59.9, adult Z68.43 ; Anxiety F41.9 ; Chest pain, unspecified type R07.9 and Essential (primary) hypertension I10 [place] [address] [facility] [address] [id number][place] [id number] Jan, BMI 45.0-49.9, adult Z68.42 ; Morbid obesity E66.01 ; Chest pain, non-cardiac R07.89 ; Anxiety F41.9 ; Essential (primary) hypertension I10 and Tobacco abuse Z72.[address] [id number], [place] [id number] Jan, Essential (primary) hypertension I10 [address] [place] [address] [id number] Dec, Essential (primary) hypertension I10 ; Migraine with aura and without status migrainosus, not intractable G43.109 ; Viral syndrome B34.9 and Lumbago with sciatica, right side M54.41 [facility] [id number] [place] [address] [id number] Nov, BMI 45.0-49.9, adult Z68.42 ; Migraine with aura and without status migrainosus, not intractable G43.109 and Essential (primary) hypertension I10 [facility] [id number] [place] [address] [id number] Nov, Essential (primary) hypertension I10 [facility] [id number] [place] [address] [id number] Nov, BMI 45.0-49.9, adult Z68.42 ; Essential (primary) hypertension I10 ; Anxiety F41.9 ; Lumbago with sciatica, right side M54.41 and Other chronic pain G89.29 [facility] [id number] [place] [address] [id number] Nov, [facility] [id number] [place] [address] [id number] Aug, RUQ abdominal pain R10.11 [facility] [id number] [place] [address] [id number] Aug, Essential (primary) hypertension I10 and Anxiety F41.9 [facility] [id number] [place] [address] [id number] May, Essential (primary) hypertension I10 and Anxiety F41.9 [facility] [id number] [place] [address] [id number] March, Diverticulitis of large intestine, unspecified bleeding status, unspecified complication status K57.32 [facility] [address]100[place] [phone] March, [facility] [id number] [place] [address] [id number] March, [facility] [id number] [place] [address] [id number] March, Dysuria R30.0 and Chest wall pain R07.89 [facility] [id number] [place] [address] [id number] March, Anxiety F41.9 [facility] [place] [id number], [place] [id number] Feb, Biliary dyskinesia K82.8 [facility] [place] [id number] [place] [address] [id number] Feb, Biliary dyskinesia K82.8 [facility] [place] [id number] [place] [address] [id number] Jan, Essential (primary) hypertension I10 and RUQ abdominal pain R10.11 [facility] [place] [id number] [place] [address] [id number] Jan, Essential (primary) hypertension I10 and Anxiety F41.9 [facility] [place] [id number] [place] [address] [id number] Dec, Essential (primary) hypertension I10 [facility] [place] [id number] [place] [address] [id number] Nov, Migraine with aura and without status migrainosus, not intractable G43.109 and Essential (primary) hypertension I10 [facility] [place] [id number] [place] [address] [id number] Nov, Anxiety F41.9 ; Migraine with aura and without status migrainosus, not intractable G43.109 and Insomnia, unspecified type G47.00 [facility] [place] [id number] [place] [address] [id number] Oct, Migraine with aura and without status migrainosus, not intractable G43.109 [facility] [place] [id number] [place] [address] [id number] Oct, Anxiety F41.9 and Essential (primary) hypertension I10 [facility] [id number] [id number]- 2598 Oct, [facility] [id number] [place] [address] [phone]- 4761 Sep, [facility] [id number] [place] [address] [id number] Sep, Diverticulitis of large intestine without perforation or abscess without bleeding K57.32 and Anxiety F41.9 [place] [id number] [place] [address] [id number] Aug, Diverticulitis of large intestine without perforation or abscess without bleeding K57.32 [facility] [id number] [place] [address] 48842- 1944 Aug, [facility] [id number] [place] [address] [id number] Aug, [facility] [id number] [place] [address] 49531- 2143 Aug, [facility] [id number] [place] [address] [id number] Aug, [facility] [address] [id number] Jul, Ingrown left big toenail L60.0 [facility] [id number] [place] [address] [id number] Jul, [facility] [address] [id number] Jul, Ingrowing toenail of right foot L60.0 [facility] [id number] [place] [address] [id number] Apr, [facility] [id number] [place] [address] [id number] Apr, RUQ abdominal pain R10.11 ; Fatty liver disease, nonalcoholic K76.0 ; Hx of hyperglycemia Z86.39 ; Elevated alanine aminotransferase (ALT) level R74.0 ; Elevated LDL cholesterol level E78.0 and Prediabetes R73.09 [facility] [id number] [place] [address] [id number] Apr, RUQ abdominal pain R10.11 ; Mild persistent asthma without complication J45.30 ; Anxiety F41.9 and Essential (primary) hypertension I10 [facility] [id number] [place] [address] [id number] March, Wheezing R06.2 and Cough R05 [place] [id number] [place] [address] [id number] March, [facility] [id number], [place] [id number] March, [place] [id number] [place] [address] [id number] March, Acute severe exacerbation of asthma J45.51 ; Cough R05 and Cough headache G44.[address] [place] [address] [id number] Feb, Mild intermittent asthma with acute exacerbation J45.21 and Transient insomnia F51.02 [place] [id number] [place] [address] [id number] Feb, Pigmented skin lesion of uncertain nature L81.9 [place] [id number] [place] [address] [id number] Feb, Anxiety F41.9 and Essential (primary) hypertension I10 [address] [place] [address] [id number] Jan, [place] [id number] [place] [address] [id number] Jan, Routine gynecological examination Z01.419 and Encounter for Papanicolaou smear for cervical cancer screening Z12.[address] [place] [address] [id number] Jan, Essential (primary) hypertension I10 and Anxiety F41.9 [address]00565100[place] [id number] Dec, Essential (primary) hypertension I10 and Anxiety F41.[address] [place] [address] [id number] Nov, Essential (primary) hypertension I10 [facility] [address] [address] [id number] [id number] Aug, [address] [place] [address] [id number] Aug, CAP (community acquired pneumonia) J18.[address] [id number], [place] [id number] Aug, CAP (community acquired pneumonia) J18.9 [facility] [address] [address] [id number] [place] [id number] Aug, CAP (community acquired pneumonia) J18.9 [facility] [id number], [place] [id number] Aug, CAP (community acquired pneumonia) J18.9 and Essential (primary) hypertension I10 [facility] [address] [place] [id number], [place] [id number] Aug, CAP (community acquired pneumonia) J18.9 [facility] [place] [facility] [address]00565100[place] [address]- 22[address] Apr, [facility] [id number] [place] [address] 04252- 4087 Feb, [facility] [place] [facility] [id number] [place] [address] 53471- 1676 Feb, [facility] [id number], [place] [id number] Jan, [facility] [place] [facility] [address] [id number] [address]- 4226 Jan, [facility] [address] [place] [address] 30996- 9476 Nov, [facility] [id number], [place] [id number] Nov, [facility] [address]100[place] [address]- 2546 Nov, [facility] [id number], [place] [id number] Oct, [facility] [place] [facility] [address] [id number] [address]- 2546 Oct, [facility] [id number], [place] [id number] Sep, [facility] [place] [facility] [address]100[place] [address]- 2546 Sep, [facility] [id number], [place] [id number] Jun, [facility] [place] [facility] [address] [facility] [id number] [address]- 0737 Jun, [facility] [address] [id number] [place] [id number] Jun, [facility] [place] [facility] [address] [facility] [id number] [place] [address]- 8908 Jun, [facility] [address] [id number] [place] [id number] May, [facility] [place] [facility] [address] [facility] [id number] [place] [address]- 4211 May, [facility] [address] [id number] [place] [id number] Dec, [facility] [place] [facility] [address] [id number] [place] [address]- 8910 Dec, [facility] [address] [id number] [place] [id number] Feb, [facility] [address] [id number] [place] [id number] Feb, [facility] [address] [id number] [place] [id number] Feb, [facility] [place] [facility] [address]100[place] [address]- 4441 16 Feb, 2013 [facility] [address] [id number], [place] [id number] 15 Feb, 2013 [facility] [address] [id number], [place] [id number] 15 Feb, 2013 [facility] [place] [facility] [address] [facility] [id number] [place] [address]- 5248 14 Feb, 2013 [facility] [place] [facility] [address] [facility] [id number] [address]- 3767 13 Feb, 2013 [facility] [facility] [address] [facility] [id number] [place] [address]- 0231 12 Feb, 2013 [facility] [address] [facility] [id number], [place] [id number] Feb, [facility] [address] [place] [id number], [place] [id number] Feb, [facility] [address] [place] [address] [id number], [place] [id number] Jan, [facility] [address] [place] [id number], [place] [id number] Nov, [facility] [address]005[address]100[place], [place] [id number] Nov, [facility] [address]005[address]100[place] [address]- 6546 Oct, [facility] [id number] [place] [address] 53116- 9962 Apr, [facility] [id number] [place] [address] 81069- 2686 Dec, [facility] [id number] [place] [address] 71802- 3562 Nov, [facility] [id number] [place] [address] 02888- 6825 Oct, [facility] [id number] [place] [address] 02201- 3892 Oct, [facility] [address]00565100[place] [address]- 1523 Sep, [facility] [address]005[address]100[place] [address]- 3924 Sep, [facility] [address]100[place] [address]- 9003 Sep, IMMUNIZATIONS No Known Immunizations SOCIAL HISTORY Never Assessed REASON FOR VISIT PLAN OF CARE VITAL SIGNS MEDICATIONS Medication Instructions Dosage Frequency Start Date End Date Duration Status Clonazepam ODT 1 mg Orally no more than twice a day 1 tablet on the tongue and allow to dissolve Feb, Active RESULTS No Results PROCEDURES No Known procedures INSTRUCTIONS MEDICATIONS ADMINISTERED No Known Medications MEDICAL (GENERAL) HISTORY Type Description Date Medical History hypertension Medical History asthma Medical History CT 08/2016 ED-sigmoid diverticulitis, hepatic steatosis, stable bilateral low density adrenal adenomas Medical History GERD Medical History IBSD Medical History sleep apnea Surgical History cholecystectomy 03/24/17 Hospitalization History Diverticulitis-[facility] 08/2016 Hospitalization History Generalized anxiety disorder-[facility] 09/2016 Hospitalization History Diverticulitis-[facility]. Left AMA 04/06/17 Hospitalization History ER visit for migraine 08/2017 Hospitalization History ER visit for chest pain 01/2018
--- OUTSIDE RECORDS SUMMARY | 2018-09-26 10:59 | XMS REPORT ---
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 Name Role Phone NUZHAT FRANKS Unavailable PROBLEMS Type Condition ICD9-CM Code IBN14-KK Code Onset Dates Condition Status SNOMED Code Problem Biliary dyskinesia K82.8 Active 615520545 Problem Diverticulitis of large intestine, unspecified bleeding status, unspecified complication status K57.32 Active 9097473 Problem RUQ abdominal pain R10.11 Active 636999863 Problem BMI 45.0-49.9, adult Z68.42 Active 752488179 Problem Sleep apnea, unspecified type G47.30 Active 49652291 Problem Other chronic pain G89.29 Active 78500137 Problem Lumbago with sciatica, right side M54.41 Active 133197607 Problem Tobacco abuse Z72.0 Active 716975494 Problem Morbid obesity E66.01 Active 704514950 Problem CAP (community acquired pneumonia) J18.9 Active 079528987 Problem Elevated LDL cholesterol level E78.0 Active 797568985 Problem Diverticulitis of large intestine without perforation or abscess without bleeding K57.32 Active 9961367 Problem Essential (primary) hypertension I10 Active 31002585 Problem Insomnia, unspecified type G47.00 Active 579386213 Problem Anxiety F41.9 Active 23218165 Problem Migraine with aura and without status migrainosus, not intractable G43.109 Active 2265011 ALLERGIES Substance Reaction Event Type Date Status Lisinopril cough Drug Allergy Apr, Active BuSpar suicidal thoughts, increased anxiety Drug Allergy Apr, Active ENCOUNTERS Encounter Location Date Diagnosis [facility] [address] [id number] [place] [id number] Aug, [facility] [address] [facility] [id number] [place] [id number] Jun, [facility] [address] [address] Jun, Chest congestion R09.89 ; Cough R05 and BMI 45.0-49.9, adult Z68.[address] [id number][place] [id number] Jun, Dental examination Z01.20 [facility] [id number] [place] [address] [id number] May, Essential (primary) hypertension I10 ; Lumbago with sciatica, right side M54.41 ; Anxiety F41.9 and BMI 45.0-49.9, adult Z68.[address] [id number], [place] [phone] May, Essential (primary) hypertension I10 ; Other chest pain R07.89 ; Dyspnea on exertion R06.09 ; Tobacco abuse Z72.0 ; Sleep apnea, unspecified type G47.30 ; BMI 45.0-49.9, adult Z68.42 and Morbid obesity E66.01 [facility] [address]005[address]100[place] [address] May, BMI 45.0-49.9, adult Z68.42 [facility] [id number] [place] [id number] May, BMI 45.0-49.9, adult Z68.42 ; Lumbago with sciatica, right side M54.41 ; Anxiety F41.9 and Essential (primary) hypertension I10 [facility] [address]00565100[place] [address] Apr, [facility] [id number]'KEAN[place] [id number] Apr, Anxiety F41.9 [facility] [id number] [place] [id number] Apr, Anxiety F41.9 [facility] [id number]'KEAN, [place] [id number] Apr, [facility] [address] [place] [address] [id number][place] [phone] Apr, Dental examination Z01.20 [facility] [address] [place] [address] [id number] Apr, Anxiety F41.9 [facility] [place] [id number] [place] [address] [id number] Apr, Anxiety F41.9 and Lumbago with sciatica, right side M54.41 [facility] [id number] [place] [address] [id number] March, Anxiety F41.9 [place] [id number] [place] [address] [id number] March, Diverticulitis of large intestine, unspecified bleeding status, unspecified complication status K57.32 ; Anxiety F41.9 and Essential (primary) hypertension I10 [facility] [address] [place] [address] [id number] March, RUQ abdominal pain R10.11 [facility] [address]005[address]100[place] [address] Feb, Wheezing on auscultation R06.2 [facility] [place] [id number] [place] [address] [id number] Feb, Anxiety F41.9 [address] [place] [address] [id number] Feb, [place] [id number] [place] [address] [id number] Jan, BMI 50.0-59.9, adult Z68.43 ; Anxiety F41.9 ; Chest pain, unspecified type R07.9 and Essential (primary) hypertension I10 [facility] [address] [facility] [address] [id number][place] [id number] Jan, BMI 45.0-49.9, adult Z68.42 ; Morbid obesity E66.01 ; Chest pain, non-cardiac R07.89 ; Anxiety F41.9 ; Essential (primary) hypertension I10 and Tobacco abuse Z72.0 [facility] [address] [facility] [id number][place] [phone] Jan, Essential (primary) hypertension I10 [facility] [id number]'KEAN, [place] [id number] Dec, Essential (primary) hypertension I10 ; Migraine with aura and without status migrainosus, not intractable G43.109 ; Viral syndrome B34.9 and Lumbago with sciatica, right side M54.41 [facility] [id number] [place] [address] [id number] Nov, BMI 45.0-49.9, adult Z68.42 ; Migraine with aura and without status migrainosus, not intractable G43.109 and Essential (primary) hypertension I10 [place] [id number] [place] [address] [id number] Nov, Essential (primary) hypertension I10 [place] [id number]'KEAN, [place] [id number] Nov, BMI 45.0-49.9, adult Z68.42 ; Essential (primary) hypertension I10 ; Anxiety F41.9 ; Lumbago with sciatica, right side M54.41 and Other chronic pain G89.29 [facility] [id number] [place] [address] [id number] Nov, [place] [address] [id number] [place] [address] [id number] Aug, RUQ abdominal pain R10.11 [address]00565100[place] [id number] Aug, Essential (primary) hypertension I10 and Anxiety F41.9 [facility] [id number] [place] [address] [id number] May, Essential (primary) hypertension I10 and Anxiety F41.9 [place] [id number] [place] [address] [id number] March, Diverticulitis of large intestine, unspecified bleeding status, unspecified complication status K57.32 [facility] [address]00565100[place] [address] March, [facility] [address] [place] 30636100[place] [id number] March, [facility] [id number] [place] [address] [id number] March, Dysuria R30.0 and Chest wall pain R07.89 [facility] [id number] [place] [address] [id number] March, Anxiety F41.9 [facility] [id number] [place] [address] [id number] Feb, Biliary dyskinesia K82.8 [facility] [id number] [place] [address] [id number] Feb, Biliary dyskinesia K82.8 [facility] [id number] [place] [address] [id number] Jan, Essential (primary) hypertension I10 and RUQ abdominal pain R10.11 [facility] [id number] [place] [address] [id number] Jan, Essential (primary) hypertension I10 and Anxiety F41.9 [facility] [id number] [place] [address] [id number] Dec, Essential (primary) hypertension I10 [facility] [id number] [place] [address] [id number] Nov, Migraine with aura and without status migrainosus, not intractable G43.109 and Essential (primary) hypertension I10 [facility] [id number] [place] [address] [id number] Nov, Anxiety F41.9 ; Migraine with aura and without status migrainosus, not intractable G43.109 and Insomnia, unspecified type G47.00 [facility] [address] [place] [address] [id number] Oct, Migraine with aura and without status migrainosus, not intractable G43.109 [facility] [id number] [place] [address] [id number] Oct, Anxiety F41.9 and Essential (primary) hypertension I10 [facility] [id number] [place] [id number] Oct, [facility] [address] [place] [address] Sep, [facility] [id number] [place] [address] [id number] Sep, Diverticulitis of large intestine without perforation or abscess without bleeding K57.32 and Anxiety F41.9 [facility] [id number] [place] [address] [id number] Aug, Diverticulitis of large intestine without perforation or abscess without bleeding K57.32 [facility] [id number] [place] [address] Aug, [facility] [id number] [place] [address] [id number] Aug, [facility] [address] [place] [address] Aug, [facility] [id number] [place] [address] [id number] Aug, [facility] [id number] [place] [address] [id number] Jul, Ingrown left big toenail L60.0 [facility] [id number] [place] [address] [id number] Jul, [facility] [id number] [place] [address] [id number] Jul, Ingrowing toenail of right foot L60.0 [facility] [id number] [place] [address] [id number] Apr, [facility] [id number] [place] [address] [id number] Apr, RUQ abdominal pain R10.11 ; Fatty liver disease, nonalcoholic K76.0 ; Hx of hyperglycemia Z86.39 ; Elevated alanine aminotransferase (ALT) level R74.0 ; Elevated LDL cholesterol level E78.0 and Prediabetes R73.09 [facility] [id number] [place] [address] [id number] Apr, 2016 RUQ abdominal pain R10.11 ; Mild persistent asthma without complication J45.30 ; Anxiety F41.9 and Essential (primary) hypertension I10 [address] [place] [address] [id number] March, Wheezing R06.2 and Cough R05 [place] [address] [place] [address] [id number] March, [place] [address] [place] [address] [id number] March, [place] [address] [place] [address] [id number] March, Acute severe exacerbation of asthma J45.51 ; Cough R05 and Cough headache G44.[address] [id number] Feb, 2016 Mild intermittent asthma with acute exacerbation J45.21 and Transient insomnia F51.02 [place] [address] [place] [address] [id number] Feb, Pigmented skin lesion of uncertain nature L81.9 [place] [address] [place] [address] [id number] Feb, Anxiety F41.9 and Essential (primary) hypertension I10 [place] [address] [place] [address] [id number] Jan, [place] [address] [place] [address] [id number] Jan, Routine gynecological examination Z01.419 and Encounter for Papanicolaou smear for cervical cancer screening Z12.4 [address] [place] [address] [id number] Jan, Essential (primary) hypertension I10 and Anxiety F41.9 [address] [place] [address] [id number] Dec, Essential (primary) hypertension I10 and Anxiety F41.9 [address] [place] [address] [id number] Nov, Essential (primary) hypertension I10 [address]00565100[place] [id number] Aug, [facility] [address] [facility] [id number]'KEAN, [place] [id number] Aug, CAP (community acquired pneumonia) J18.9 [facility] [address] [place] [address] [id number]'[place], [place] [id number] Aug, CAP (community acquired pneumonia) J18.9 [facility] [place] [address] [facility] [id number][place] [phone] Aug, CAP (community acquired pneumonia) J18.9 [facility] [id number]'KE[place], [place] [id number] Aug, CAP (community acquired pneumonia) J18.9 and Essential (primary) hypertension I10 [facility] [id number]'KEAN, [place] [id number] Aug, CAP (community acquired pneumonia) J18.9 [facility] [address]005[address] [address] Apr, [facility] [address]005[address]100[place] [address] Feb, [facility] [address]005[address]100[place] [address] Feb, [facility] [id number]'KEAN, [place] [id number] Jan, [facility] [address]005[address]100[place] [address] Jan, [facility] [address]005[address]100[place] [address] Nov, [facility] [address] [facility] [id number]'KEAN, [place] [id number] Nov, [facility] [address]005[address] [address] Nov, [facility] [address] [facility] [id number]'KEAN, [place] [id number] Oct, [facility] [address]005[address] [address] Oct, [facility] [address] [id number] [place] [id number] Sep, [facility] [address] [facility] [id number] [place] [address] Sep, [facility] [address] [id number] [place] [phone] Jun, [facility] [address] [facility] [id number] [place] [address] Jun, [facility] [address] [id number] [place] [id number] Jun, [facility] [address] [facility] [id number] [place] [address] Jun, [facility] [address] [id number] [place] [id number] May, [facility] [address]005[address]100[place] [address] May, [facility] [address] [facility] [id number] [place] [id number] Dec, [facility] [address]005[address]100[place] [address] Dec, [facility] [address] [id number]'KEAN, [place] [id number] Feb, [facility] [address] [id number]'[place]AN, [place] [id number] Feb, [facility] [address] [id number]'KEAN, [place] [id number] Feb, [facility] [address] [facility] [id number] [place] [address] 16 Feb, 2013 [facility] [address] [id number]'KEAN, [place] [id number] 15 Feb, 2013 [facility] [address] [id number] [place] [id number] 15 Feb, 2013 [facility] [address] [facility] [id number] [place] [address] 14 Feb, 2013 [facility] [address] [facility] [id number] [address] Feb, [facility] [address] [address] Feb, [facility] [address] [id number] [place] [id number] Feb, [facility] [address] [id number] [place] [id number] Feb, [facility] [address] [id number] [place] [id number] Jan, [facility] [address] [id number] [place] [id number] Nov, [facility] [address] [facility] [id number] [place] [id number] Nov, [facility] [address]005[address]100[place] [address]- [address] Oct, [facility] [address]100[place] [address] Apr, [facility] [address]005[address] [address]- [address] Dec, [facility] [address] [address] Nov, [facility] [address] [address]- [address] Oct, [facility] [address] [address]- [address] Oct, [facility] [address] [address] 25[address] Sep, [facility] [address] [address] Sep, [facility] [address] [id number] [address] 2546 Sep, IMMUNIZATIONS No Known Immunizations SOCIAL HISTORY Never Assessed REASON FOR VISIT [facility]- anxiety f/u Oneyda [facility] PLAN OF CARE Activity Details Follow Up 4 Weeks Reason:back pain VITAL SIGNS Height 66 in 2018-05-01 Weight 304 lbs 2018-05-01 Heart Rate 88 bpm 2018-05-01 Respiratory Rate 18 2018-05-01 BMI 49.06 kg/m2 2018-05-01 Blood pressure systolic 160 mmHg 2018-05-01 Blood pressure diastolic 98 mmHg 2018-05-01 MEDICATIONS Medication Instructions Dosage Frequency Start Date End Date Duration Status Tramadol HCl 50 mg Orally 2 times a day 1 tablet as needed 12h Apr, Active Albuterol Sulfate 90 mcg/actuation Inhalation every 8 hrs 2 puffs by Inhalation route every 4-6 hours as needed PRN cough or wheezing 8h May, Active CompAir Nebulizer - as directed Feb, 5 days Active Losartan Potassium 100 mg Orally Once a day 1 tablet 24h Nov, Active Promethazine HCl 25 MG Orally every 12 hrs 1 tablet as needed 12h Nov, Not-Taking Flonase 50 MCG/DOSE Nasally Once a day 1 spray in each nostril 24h Not-Taking Atenolol 100 MG Orally Once a day 1 tablet 24h Nov, Active Singulair 10 MG Orally Once a day 1 tablet in the evening 24h Not- Taking ZyrTEC 10 MG Orally Once a day 1 tablet 24h Not-Taking Clonazepam ODT 1 mg Orally no more than twice a day 1 tablet on the tongue and allow to dissolve Feb, Active Amlodipine Besylate 5 MG Orally Once a day 1 tablet 24h Nov, Active Nitroglycerin 0.4 MG Not-Taking Sertraline HCl 50 mg Orally Once a day 1.5 tablet 24h Feb, Active RESULTS No Results PROCEDURES No [...] 09/2016 Hospitalization History Diverticulitis-Vch. Left AMA 04/06/17 Hospitalization History ER visit for migraine 08/2017 Hospitalization History ER visit for chest pain 01/2018
--- OUTSIDE RECORDS SUMMARY | 2018-09-26 11:00 | XMS REPORT ---
Author Author NUZHAT FRANKS [facility] Address [address] [place] [address] Care Team Providers Care Mba Intern Name Role Phone NUZHAT FRANKS Unavailable PROBLEMS Type Condition ICD9-CM Code EAC98-EI Code Onset Dates Condition Status SNOMED Code Problem Biliary dyskinesia K82.8 Active 843690370 Problem Diverticulitis of large intestine, unspecified bleeding status, unspecified complication status K57.32 Active 8768756 Problem RUQ abdominal pain R10.11 Active 086818084 Problem BMI 45.0-49.9, adult Z68.42 Active 291492015 Problem Sleep apnea, unspecified type G47.30 Active 63074935 Problem Other chronic pain G89.29 Active 61740214 Problem Lumbago with sciatica, right side M54.41 Active 807451761 Problem Tobacco abuse Z72.0 Active 068493165 Problem Morbid obesity E66.01 Active 002480319 Problem CAP (community acquired pneumonia) J18.9 Active 696488307 Problem Elevated LDL cholesterol level E78.0 Active 271351628 Problem Diverticulitis of large intestine without perforation or abscess without bleeding K57.32 Active 1182264 Problem Essential (primary) hypertension I10 Active 56726630 Problem Insomnia, unspecified type G47.00 Active 010911391 Problem Anxiety F41.9 Active 00522809 Problem Migraine with aura and without status migrainosus, not intractable G43.109 Active 9454562 ALLERGIES Substance Reaction Event Type Date Status Lisinopril cough Drug Allergy March, Active BuSpar suicidal thoughts, increased anxiety Drug Allergy March, Active ENCOUNTERS Encounter Location Date Diagnosis [facility] [address] [id number] [place] [id number] Aug, [facility] [place] [address] [facility] [id number] [place] [id number] Jun, [facility] [address] [id number], [place] [id number] Jun, Dental examination Z01.20 [facility] [id number], [place] [id number] May, Essential (primary) hypertension I10 ; Lumbago with sciatica, right side M54.41 ; Anxiety F41.9 and BMI 45.0-49.9, adult Z68.[address] [id number][place] [id number] May, Essential (primary) hypertension I10 ; Other chest pain R07.89 ; Dyspnea on exertion R06.09 ; Tobacco abuse Z72.0 ; Sleep apnea, unspecified type G47.30 ; BMI 45.0-49.9, adult Z68.42 [address] E66.01 [facility] [address]00565100[place] [address] May, BMI 45.0-49.9, adult Z68.42 [facility] [id number] [place] [address] [id number] May, BMI 45.0-49.9, adult Z68.42 ; Lumbago with sciatica, right side M54.41 ; Anxiety F41.9 and Essential (primary) hypertension I10 [facility] [address]00565100[place] [id number] Apr, [facility] [id number] [place] [address] [id number] Apr, Anxiety F41.9 [facility] [id number] [place] [address] [id number] Apr, Anxiety F41.9 [facility] [id number] [place] [address] [id number] Apr, [facility] [address] [facility] [id number] [id number] Apr, Dental examination Z01.20 [facility] [id number], [place] [id number] Apr, Anxiety F41.9 [facility] [id number], [place] [id number] Apr, Anxiety F41.9 and Lumbago with sciatica, right side M54.41 [facility] [id number] [place] [address] [id number] March, Anxiety F41.9 [facility] [id number], [place] [id number] March, Diverticulitis of large intestine, unspecified bleeding status, unspecified complication status K57.32 ; Anxiety F41.9 and Essential (primary) hypertension I10 [facility] [id number] [place] [address] [id number] March, RUQ abdominal pain R10.11 [facility] [address]00565100[place], [place] [address] Feb, Wheezing on auscultation R06.2 [facility] [address] [place] [address] [id number] Feb, Anxiety F41.9 [facility] [id number] [place] [address] [id number] Feb, [place] [id number] [place] [address] [id number] Jan, BMI 50.0-59.9, adult Z68.43 ; Anxiety F41.9 ; Chest pain, unspecified type R07.9 and Essential (primary) hypertension I10 [address] [id number], [place] [id number] Jan, BMI 45.0-49.9, adult Z68.42 ; Morbid obesity E66.01 ; Chest pain, non-cardiac R07.89 ; Anxiety F41.9 ; Essential (primary) hypertension I10 and Tobacco abuse Z72.0 [address] [id number], [place] [id number] Jan, Essential (primary) hypertension I10 [facility] [address] [id number], [place] [id number] Dec, Essential (primary) hypertension I10 ; Migraine with aura and without status migrainosus, not intractable G43.109 ; Viral syndrome B34.9 and Lumbago with sciatica, right side M54.41 [facility] [id number] [place] [address] [id number] Nov, BMI 45.0-49.9, adult Z68.42 ; Migraine with aura and without status migrainosus, not intractable G43.109 and Essential (primary) hypertension I10 [facility] [id number] [place] [address] [id number] Nov, Essential (primary) hypertension I10 [place] [id number] [place] [address] [id number] Nov, BMI 45.0-49.9, adult Z68.42 ; Essential (primary) hypertension I10 ; Anxiety F41.9 ; Lumbago with sciatica, right side M54.41 and Other chronic pain G89.29 [address] [id number] [place] [address] [id number] Nov, [facility] [id number] [place] [address] [id number] Aug, RUQ abdominal pain R10.11 [address] [id number] [place] [address] [id number] Aug, Essential (primary) hypertension I10 and Anxiety F41.9 [address] [id number] [place] [address] [id number] May, Essential (primary) hypertension I10 and Anxiety F41.9 [address] [id number] [place] [address] [id number] March, Diverticulitis of large intestine, unspecified bleeding status, unspecified complication status K57.32 [facility] [id number] [place] [id number] March, [address] [id number] [place] [address] [id number] March, [place] [id number] [place] [address] [id number] March, Chest wall pain R07.89 and Dysuria R30.[address] [facility] [place] [id number] [place] [address] [id number] March, Anxiety F41.9 [facility] [place] [id number] [place] [address] [id number] Feb, Biliary dyskinesia K82.8 [facility] [place] [id number] [place] [address] [id number] Feb, Biliary dyskinesia K82.8 [facility] [place] [address] [id number] Jan, Essential (primary) hypertension I10 and RUQ abdominal pain R10.11 [facility] [place] [address] [id number] Jan, Essential (primary) hypertension I10 and Anxiety F41.9 [facility] [place] [id number] [place] [address] [id number] Dec, Essential (primary) hypertension I10 [facility] [place] [id number] [place] [address] [id number] Nov, Migraine with aura and without status migrainosus, not intractable G43.109 and Essential (primary) hypertension I10 [facility] [place] [id number] [place] [address] [id number] Nov, Anxiety F41.9 ; Migraine with aura and without status migrainosus, not intractable G43.109 and Insomnia, unspecified type G47.00 [facility] [place] [id number] [place] [address] [id number] Oct, Migraine with aura and without status migrainosus, not intractable G43.109 [facility] [place] [id number] [place] [address] [id number] Oct, Anxiety F41.9 and Essential (primary) hypertension I10 [facility] [address] [id number] Oct, [facility] [id number] [place] [address] [id number] Sep, [facility] [place] [address] [id number] Sep, Diverticulitis of large intestine without perforation or abscess without bleeding K57.32 and Anxiety F41.9 [place] [id number] [place] [address] [id number] Aug, Diverticulitis of large intestine without perforation or abscess without bleeding K57.32 [facility] [id number] [place] [address] [id number] Aug, [facility] [address] [id number] Aug, [facility] [id number] [place] [address] 84517- 6414 Aug, [facility] [address] [id number] Aug, [facility] [address] [id number] Jul, Ingrown left big toenail L60.0 [place] [address] [id number] Jul, [facility] [address] [id number] Jul, Ingrowing toenail of right foot L60.0 [place] [id number] [place] [address] [id number] Apr, [place] [id number] [place] [address] [id number] Apr, RUQ abdominal pain R10.11 ; Fatty liver disease, nonalcoholic K76.0 ; Hx of hyperglycemia Z86.39 ; Elevated alanine aminotransferase (ALT) level R74.0 ; Elevated LDL cholesterol level E78.0 and Prediabetes R73.09 [place] [id number] [place] [address] [id number] Apr, RUQ abdominal pain R10.11 ; Mild persistent asthma without complication J45.30 ; Anxiety F41.9 and Essential (primary) hypertension I10 [place] [id number] [place] [address] [id number] March, Wheezing R06.2 and Cough R05 [address]005[address] [id number] March, [address] [place] [address] [id number] March, [place] [id number] [place] [address] [id number] March, Acute severe exacerbation of asthma J45.51 ; Cough R05 and Cough headache G44.83 [place] [id number] [place] [address] [id number] Feb, Mild intermittent asthma with acute exacerbation J45.21 and Transient insomnia F51.02 [place] [id number] [place] [address] [id number] Feb, Pigmented skin lesion of uncertain nature L81.9 [place] [id number] [place] [address] [id number] Feb, Anxiety F41.9 and Essential (primary) hypertension I10 [address] [place] [address] [id number] Jan, [place] [id number] [place] [address] [id number] Jan, Routine gynecological examination Z01.419 and Encounter for Papanicolaou smear for cervical cancer screening Z12.4 [place] [id number] [place] [address] [id number] Jan, Essential (primary) hypertension I10 and Anxiety F41.9 [address] [place] [address] [id number] Dec, Essential (primary) hypertension I10 and Anxiety F41.9 [address] [place] [address] [id number] Nov, Essential (primary) hypertension I10 [facility] [address] [facility] [address] [id number] [id number] Aug, [address] [id number] Aug, CAP (community acquired pneumonia) J18.9 [place] [id number] [place] [address] [id number] Aug, CAP (community acquired pneumonia) J18.9 [facility] [address] [facility] [address] [id number], [place] [id number] Aug, CAP (community acquired pneumonia) J18.9 [facility] [place] [id number], [place] [id number] Aug, CAP (community acquired pneumonia) J18.9 and Essential (primary) hypertension I10 [facility] [place] [id number] [place] [address] [id number] Aug, CAP (community acquired pneumonia) J18.9 [facility] [id number] [place] [address] [id number] Apr, [facility] [place] [facility] [id number] [place] [address] 41705- 2546 Feb, [facility] [id number] [place] [address] 07142- 1226 Feb, [facility] [place] [id number], [place] [id number] Jan, [facility] [id number] [place] [address] 56310- 8286 Jan, [facility] [place] [facility] [id number] [place] [address] 10630- 2546 Nov, [facility] [place] [id number], [place] [id number] Nov, [facility] [address] [id number], [place] [address]- 2546 Nov, [facility] [place] [address] [facility] [id number], [place] [id number] Oct, [facility] [id number] [place] [address] 97595- 2546 Oct, [facility] [place] [address] [facility] [id number], [place] [id number] Sep, [facility] [id number] [place] [address] 91965- 2059 Sep, [facility] [address] [id number] [place] [id number] Jun, [facility] [address] [id number] [place] [address]- 8202 Jun, [facility] [address] [id number] [place] [id number] Jun, [facility] [address] [facility] [id number] [place] [address]- 7537 Jun, [facility] [address] [id number] [place] [id number] May, [facility] [address] [facility] [id number] [place] [address]- 0226 May, [facility] [address] [id number] [place] [id number] Dec, [facility] [address]00565100[place], [place] [address]- [address] Dec, [facility] [address] [id number] [place] [id number] Feb, [facility] [address] [id number] [place] [id number] Feb, [facility] [address] [id number] [place] [id number] Feb, [facility] [address] [id number], [place] [address]- [address] 16 Feb, 2013 [facility] [address] [id number] [place] [id number] 15 Feb, 2013 [facility] [address] [id number] [place] [id number] 15 Feb, 2013 [facility] [place] [facility] [address] [facility] [id number], [place] [address]- 2789 14 Feb, 2013 [facility] [place] [facility] [address] [facility] [id number], [place] [address]- 4737 13 Feb, 2013 [facility] [address] [facility] [id number], [place] [address]- 6926 Feb, [facility] [address] [id number], [place] [id number] Feb, [facility] [place] [address] [id number], [place] [id number] Feb, [facility] [place] [address] [id number], [place] [id number] Jan, [facility] [place] [address] [id number], [place] [id number] Nov, [facility] [place] [id number], [place] [id number] Nov, [facility] [id number] [place] [address] 92831- 3726 Oct, [facility] [id number] [place] [address] 34010- 6409 Apr, [facility] [id number] [place] [address] 68530- 0575 Dec, [facility] [id number] [place] [address] 75232- 7486 Nov, [facility] [id number] [place] [address] 40232- 5814 Oct, [facility] [id number] [place] [address] 08155- 2413 Oct, [facility] [id number] [place] [address] 36717- [address]2 Sep, [facility] [id number] [place] [address] 85773- 9778 Sep, [facility] [id number] [place] [address] 78201- 6145 Sep, IMMUNIZATIONS No Known Immunizations SOCIAL HISTORY Never Assessed REASON FOR VISIT CHM- anxiety f/u Oneyda [employer]BERT[facility] PLAN OF CARE Activity Details Follow Up 4 Weeks Reason:anxiety VITAL SIGNS Height 66 in 2018-04-03 Weight 306 lbs 2018-04-03 Temperature 97.8 degrees Fahrenheit 2018-04-03 Heart Rate 90 bpm 2018-04-03 Respiratory Rate 20 2018-04-03 BMI 49.38 kg/m2 2018-04-03 Blood pressure systolic 150 mmHg 2018-04-03 Blood pressure diastolic 90 mmHg 2018-04-03 MEDICATIONS Medication Instructions Dosage Frequency Start Date End Date Duration Status Atenolol 100 MG Orally Once a day 1 tablet 24h Nov, Active Nitroglycerin 0.4 MG Not-Taking Cipro 500 mg Orally Twice a day 1 tablet 12h Aug, March, Active Hydrocodone-Acetaminophen 5-325 MG Orally every 6 hrs 1 tablet as needed 6h March, Active CompAir Nebulizer - as directed Feb, 5 days Active ZyrTEC 10 MG Orally Once a day 1 tablet 24h Not-Taking Flonase 50 MCG/DOSE Nasally Once a day 1 spray in each nostril 24h Not-Taking Flagyl 500 mg Orally 2 times a day 1 tablet 12h Apr, March, Active Albuterol Sulfate 90 mcg/actuation Inhalation every 8 hrs 2 puffs by Inhalation route every 4-6 hours as needed PRN cough or wheezing 8h May, Active Clonazepam ODT 1 mg Orally one time 1 tablet on the tongue and allow to dissolve Feb, Active Gabapentin 300 MG Orally Three times a day 1 capsule 1 tab qhs x 5 d then bid x 5 d then tid 8h Nov, Not-Taking Sertraline HCl 50 mg Orally Once a day 1.5 tablet 24h Feb, Active Amlodipine Besylate 5 MG Orally Once a day 1 tablet 24h Nov, Active Singulair 10 MG Orally Once a day 1 tablet in the evening 24h Not- Taking Losartan Potassium 100 mg Orally Once a day 1 tablet 24h Nov, Active Promethazine HCl 25 MG Orally every 12 hrs 1 tablet as needed 12h Nov, Not-Taking RESULTS No Results PROCEDURES No Known procedures [...]
--- OUTSIDE RECORDS SUMMARY | 2018-09-26 11:00 | XMS REPORT ---
Author Author INNA PRIETO [facility] Address [address] [place] [address] Care Team Providers Care Used Equipment Sales Representative Name Role Phone INNA PRIETO Unavailable PROBLEMS Type Condition ICD9-CM Code UIM41-BQ Code Onset Dates Condition Status SNOMED Code Problem Biliary dyskinesia K82.8 Active 389479621 Problem Diverticulitis of large intestine, unspecified bleeding status, unspecified complication status K57.32 Active 0617189 Problem RUQ abdominal pain R10.11 Active 741929868 Problem BMI 45.0-49.9, adult Z68.42 Active 118782927 Problem Sleep apnea, unspecified type G47.30 Active 30810430 Problem Other chronic pain G89.29 Active 99324314 Problem Lumbago with sciatica, right side M54.41 Active 790083360 Problem Tobacco abuse Z72.0 Active 618174019 Problem Morbid obesity E66.01 Active 616290663 Problem CAP (community acquired pneumonia) J18.9 Active 703566106 Problem Elevated LDL cholesterol level E78.0 Active 358047726 Problem Diverticulitis of large intestine without perforation or abscess without bleeding K57.32 Active 8855045 Problem Essential (primary) hypertension I10 Active 67955249 Problem Insomnia, unspecified type G47.00 Active 549236699 Problem Anxiety F41.9 Active 98497290 Problem Migraine with aura and without status migrainosus, not intractable G43.109 Active 7157958 ALLERGIES Substance Reaction Event Type Date Status Lisinopril cough Drug Allergy Feb, Active BuSpar suicidal thoughts, increased anxiety Drug Allergy Feb, Active ENCOUNTERS Encounter Location Date Diagnosis [facility] [address] [id number] [place] [id number] Aug, [facility] [address] [id number] [place] [id number] Jun, [facility] [address] [id number] [place] [id number] Jun, [facility] [id number] [place] [address] [id number] May, Essential (primary) hypertension I10 ; Lumbago with sciatica, right side M54.41 ; Anxiety F41.9 and BMI 45.0-49.9, adult Z68.42 [facility] [address] [id number] [place] [id number] May, Essential (primary) hypertension I10 ; Other chest pain R07.89 ; Dyspnea on exertion R06.09 ; Tobacco abuse Z72.0 ; Sleep apnea, unspecified type G47.30 ; BMI 45.0-49.9, adult Z68.42 and Morbid obesity E66.01 [facility] [address] [address] May, BMI 45.0-49.9, adult Z68.42 [facility] [id number] [place] [address] [id number] May, BMI 45.0-49.9, adult Z68.42 ; Lumbago with sciatica, right side M54.41 ; Anxiety F41.9 and Essential (primary) hypertension I10 [facility] [address]005[address]100[place] [address] Apr, [facility] [id number] [id number] Apr, Anxiety F41.9 [facility] [id number] [place] [address] [id number] Apr, Anxiety F41.9 [facility] [id number] [place] [address] [id number] Apr, [facility] [address] [id number] [place] [id number] Apr, Dental examination Z01.20 [facility] [address] [place] [address] [id number] Apr, Anxiety F41.9 [facility] [id number], [place] [id number] Apr, Anxiety F41.9 and Lumbago with sciatica, right side M54.41 [facility] [place] [id number], [place] [id number] March, Anxiety F41.9 [facility] [place] [id number][place] [id number] March, Diverticulitis of large intestine, unspecified bleeding status, unspecified complication status K57.32 ; Anxiety F41.9 and Essential (primary) hypertension I10 [facility] [place] [id number], [place] [id number] March, RUQ abdominal pain R10.11 [facility] [address] [address] Feb, Wheezing on auscultation R06.2 [facility] [place] [id number] [place] [address] [id number] Feb, Anxiety F41.9 [facility] [id number], [place] [id number] Feb, [facility] [place] [id number] [place] [address] [id number] Jan, BMI 50.0-59.9, adult Z68.43 ; Anxiety F41.9 ; Chest pain, unspecified type R07.9 and Essential (primary) hypertension I10 [facility] [address] [place] [address] [id number] [place] [id number] Jan, BMI 45.0-49.9, adult Z68.42 ; Morbid obesity E66.01 ; Chest pain, non-cardiac R07.89 ; Anxiety F41.9 ; Essential (primary) hypertension I10 and Tobacco abuse Z72.[address] [id number] [place] [id number] Jan, Essential (primary) hypertension I10 [facility] [address] [id number] [id number] Dec, Essential (primary) hypertension I10 ; Migraine with aura and without status migrainosus, not intractable G43.109 ; Viral syndrome B34.9 and Lumbago with sciatica, right side M54.41 [facility] [id number] [place] [address] [id number] Nov, BMI 45.0-49.9, adult Z68.42 ; Migraine with aura and without status migrainosus, not intractable G43.109 and Essential (primary) hypertension I10 [facility] [id number] [place] [address] [id number] Nov, Essential (primary) hypertension I10 [id number] [place] [address] [id number] Nov, BMI 45.0-49.9, adult Z68.42 ; Essential (primary) hypertension I10 ; Anxiety F41.9 ; Lumbago with sciatica, right side M54.41 and Other chronic pain G89.29 [facility] [id number] [place] [address] [id number] Nov, [facility] [id number] [place] [address] [id number] Aug, RUQ abdominal pain R10.11 [id number] [place] [address] [id number] Aug, Essential (primary) hypertension I10 and Anxiety F41.9 [id number] [place] [address] [id number] May, Essential (primary) hypertension I10 and Anxiety F41.9 [id number] [place] [address] [id number] March, Diverticulitis of large intestine, unspecified bleeding status, unspecified complication status K57.32 [facility] [id number] [place] [phone] March, [id number] [place] [address] [id number] March, [address] [id number] [place] [address] [id number] March, Chest wall pain R07.89 and Dysuria R30.0 [facility] [place] [id number], [place] [id number] March, Anxiety F41.9 [facility] [place] [id number] [place] [address] [id number] Feb, Biliary dyskinesia K82.8 [facility] [place] [id number] [place] [address] [id number] Feb, Biliary dyskinesia K82.8 [facility] [place] [id number] [place] [address] [id number] Jan, Essential (primary) hypertension I10 and RUQ abdominal pain R10.11 [facility] [place] [id number] [place] [address] [id number] Jan, Essential (primary) hypertension I10 and Anxiety F41.9 [facility] [place] [id number] [place] [address] [id number] Dec, Essential (primary) hypertension I10 [facility] [place] [id number] [place] [address] [id number] Nov, Migraine with aura and without status migrainosus, not intractable G43.109 and Essential (primary) hypertension I10 [facility] [place] [id number] [place] [address] [id number] Nov, Anxiety F41.9 ; Migraine with aura and without status migrainosus, not intractable G43.109 and Insomnia, unspecified type G47.00 [facility] [place] [id number] [place] [address] [id number] Oct, Migraine with aura and without status migrainosus, not intractable G43.109 [facility] [place] [id number] [place] [address] [id number] Oct, Anxiety F41.9 and Essential (primary) hypertension I10 [facility] [id number] [place] [phone] Oct, [facility] [id number] [place] [address] [id number] Sep, [facility] [place] [id number] [place] [address] [id number] Sep, Diverticulitis of large intestine without perforation or abscess without bleeding K57.32 and Anxiety F41.9 [id number] [place] [address] [id number] Aug, Diverticulitis of large intestine without perforation or abscess without bleeding K57.32 [facility] [id number] [place] [address] Aug, [facility] [address] [id number] Aug, [facility] [address] [address] Aug, [facility] [id number] [place] [address] [id number] Aug, [address] [id number] Jul, Ingrown left big toenail L60.0 [address] [place] [id number] [place] [address] [id number] Jul, [address] [place] [id number] [place] [address] [id number] Jul, Ingrowing toenail of right foot L60.0 [id number] [place] [address] [id number] Apr, [address] [place] [id number] [place] [address] [id number] Apr, RUQ abdominal pain R10.11 ; Fatty liver disease, nonalcoholic K76.0 ; Hx of hyperglycemia Z86.39 ; Elevated alanine aminotransferase (ALT) level R74.0 ; Elevated LDL cholesterol level E78.0 and Prediabetes R73.[address] [id number] Apr, 2016 RUQ abdominal pain R10.11 ; Mild persistent asthma without complication J45.30 ; Anxiety F41.9 and Essential (primary) hypertension I10 [id number] [place] [address] [id number] March, Wheezing R06.2 and Cough R05 [address]00565100[place] [id number] March, [address] [id number] [place] [address] [id number] March, [address] [id number] [place] [address] [id number] March, Acute severe exacerbation of asthma J45.51 ; Cough R05 and Cough headache G44.83 [id number] [place] [address] [id number] Feb, Mild intermittent asthma with acute exacerbation J45.21 and Transient insomnia F51.02 [address] [address] [place] [address] [id number] Feb, Pigmented skin lesion of uncertain nature L81.9 [address] [place] [address] [id number] Feb, Anxiety F41.9 and Essential (primary) hypertension I10 [address] [place] [address] [id number] Jan, [address] [address] [place] [address] [id number] Jan, Routine gynecological examination Z01.419 and Encounter for Papanicolaou smear for cervical cancer screening Z12.4 [address] [place] [address] [id number] Jan, 2016 Essential (primary) hypertension I10 and Anxiety F41.9 [address] [place] [address] [id number] Dec, Essential (primary) hypertension I10 and Anxiety F41.9 [address] [place] [address] [id number] Nov, Essential (primary) hypertension I10 [facility] [address] [facility] [id number] [place] [id number] Aug, [address] [place] [address] [id number] Aug, CAP (community acquired pneumonia) J18.9 [address] [address] [id number] [id number] Aug, CAP (community acquired pneumonia) J18.9 [facility] [address] [id number] [place] [id number] Aug, CAP (community acquired pneumonia) J18.9 [facility] [place] [id number][place] [id number] Aug, CAP (community acquired pneumonia) J18.9 and Essential (primary) hypertension I10 [facility] [place] [id number], [place] [id number] Aug, CAP (community acquired pneumonia) J18.9 [facility] [id number] [place] [address] 60991- [phone] Apr, [facility] [id number] [place] [address] [phone] Feb, [facility] [id number] [place] [address] [phone]- [phone] Feb, [facility] [place] [id number], [place] [id number] Jan, [facility] [id number] [place] [address] [phone] Jan, [facility] [address] [place] [address] [phone] Nov, [facility] [place] [id number], [place] [id number] Nov, [facility] [address] [place] [address] [phone] Nov, [facility] [place] [id number], [place] [id number] Oct, [facility] [address]100[place] [address] Oct, [facility] [place] [address] [id number] [id number] Sep, [facility] [id number] [place] [address] 54024- 3823 Sep, [facility] [address] [id number] [place] [id number] Jun, [facility] [address] [facility] [id number] [address] Jun, [facility] [address] [id number] [place] [id number] Jun, [facility] [address] [facility] [id number] [address] Jun, [facility] [address] [id number] [place] [id number] May, [facility] [address] [facility] [id number] [address] May, [facility] [address] [id number] [place] [id number] Dec, [facility] [address]005[address]100[place] [address] Dec, [facility] [address] [id number] [place] [id number] Feb, [facility] [address] [id number] [place] [id number] Feb, [facility] [address] [id number] [place] [phone] Feb, [facility] [address] [facility] [id number] [address] 16 Feb, 2013 [facility] [address] [id number] [place] [id number] 15 Feb, 2013 [facility] [address] [id number] [place] [id number] 15 Feb, 2013 [facility] [address] [facility] [id number] [place] [id number] 14 Feb, 2013 [facility] [address] [facility] [id number] [address] 13 Feb, 2013 [facility] [address] [address] Feb, [facility] [address] [id number] [id number] Feb, [facility] [id number], [place] [id number] Feb, [facility] [address] [id number] [id number] Jan, [facility] [id number], [place] [id number] Nov, [facility] [id number], [place] [id number] Nov, [facility] [id number] [place] [address] 23372- 2746 Oct, [facility] [id number] [place] [address] 37691- 2546 Apr, [facility] [id number] [place] [address] 31899- 6516 Dec, [facility] [address] [place] [address] 49935- 9466 Nov, [facility] [id number] [place] [address] 68289- 7174 Oct, [facility] [address] [address]- 86[address] Oct, [facility] [address] [place] [address] 33594- 8656 Sep, [facility] [address]100[place] [address] 269[address] Sep, [facility] [address] [place] [address] 34501- 2745 Sep, IMMUNIZATIONS Vaccine Route Administration Date Status SOLUMEDROL (UP TO 125 MG) IM Intramuscular March 15, 2018 Administered SOCIAL HISTORY Never Assessed REASON FOR VISIT shortness of breath, cough started 2 days ago JStrasserRN PLAN OF CARE Activity Details Follow Up prn Reason: Future/Pending Procedure NEB/MDI RX INITIAL VITAL SIGNS Height 66 in 2018-03-15 Weight 309.4 lbs 2018-03-15 Temperature 97.8 degrees Fahrenheit 2018-03-15 Heart Rate 104 bpm 2018-03-15 Respiratory Rate 24 2018-03-15 Oximetry 98 % 2018-03-15 BMI 49.93 kg/m2 2018-03-15 Blood pressure systolic 100 mmHg 2018-03-15 Blood pressure diastolic 70 mmHg 2018-03-15 MEDICATIONS Medication Instructions Dosage Frequency Start Date [...] tablet 24h Nov, Active Amlodipine Besylate 5 MG Orally Once a day 1 tablet 24h Nov, Active Clonazepam ODT 1 MG Orally one time 1 tablet on the tongue and allow to dissolve Feb, Active Gabapentin 300 MG Orally Three times a day 1 capsule 1 tab qhs x 5 d then bid x 5 d then tid 8h Nov, Not-Taking CompAir Nebulizer - as directed Feb, 5 days Active Sertraline HCl 25 MG Orally Once a day 1 tablet x 2 wk then 2 tab qd 24h Feb, Active Singulair 10 MG Orally Once a day 1 tablet in the evening 24h Not- Taking Nitroglycerin 0.4 MG Not-Taking ZyrTEC 10 MG Orally Once a day 1 tablet 24h Not-Taking Clonazepam 1 MG Orally Twice a day .5-1 tablet 12h Sep, 0 days Active Promethazine HCl 25 MG Orally every 12 hrs 1 tablet as needed 12h Nov, Not-Taking Flonase 50 MCG/DOSE Nasally Once a day 1 spray in each nostril 24h Not-Taking RESULTS Name Result Date Reference Range Xray : Chest 2 View (IN HOUSE) 2018-03-15 PROCEDURES Procedure Date Ordered Result Body Site NEB/MDI RX INITIAL March 15, 2018 X-RAY EXAM CHEST 2 VIEWS March 15, 2018 THER/PROPH/DIAG INJ, SC/IM March 15, 2018 SOLUMEDROL (UP TO 125 MG) March 15, 2018 INSTRUCTIONS MEDICATIONS ADMINISTERED No Known Medications MEDICAL (GENERAL) HISTORY Type Description Date Medical History hypertension Medical History asthma Medical History CT 08/2016 ED-sigmoid diverticulitis, hepatic steatosis, stable bilateral low density adrenal adenomas Medical History GERD Medical History IBSD Medical History sleep apnea Surgical History cholecystectomy 03/24/17 Hospitalization History Diverticulitis-[facility] 08/2016 Hospitalization History Generalized anxiety disorder-[facility] 09/2016 Hospitalization History Diverticulitis-[facility]. Left AMA 04/06/17 Hospitalization History ER visit for migraine 08/2017 Hospitalization History ER visit for chest pain 01/2018
--- OUTSIDE RECORDS SUMMARY | 2018-09-26 11:00 | XMS REPORT ---
Author Author NUZHAT FRANKS [facility] Address [address] [place] [address] Care Team Providers Care Stick Feeder Name Role Phone NUZHAT FRANKS Unavailable PROBLEMS Type Condition ICD9-CM Code JIH68-UE Code Onset Dates Condition Status SNOMED Code Problem Biliary dyskinesia K82.8 Active 849616990 Problem Diverticulitis of large intestine, unspecified bleeding status, unspecified complication status K57.32 Active 9981371 Problem RUQ abdominal pain R10.11 Active 246159708 Problem BMI 45.0-49.9, adult Z68.42 Active 696419797 Problem Sleep apnea, unspecified type G47.30 Active 08637731 Problem Other chronic pain G89.29 Active 23454071 Problem Lumbago with sciatica, right side M54.41 Active 035562635 Problem Tobacco abuse Z72.0 Active 420056632 Problem Morbid obesity E66.01 Active 273216879 Problem CAP (community acquired pneumonia) J18.9 Active 826906651 Problem Elevated LDL cholesterol level E78.0 Active 519820468 Problem Diverticulitis of large intestine without perforation or abscess without bleeding K57.32 Active 8474476 Problem Essential (primary) hypertension I10 Active 61044992 Problem Insomnia, unspecified type G47.00 Active 202133134 Problem Anxiety F41.9 Active 78796582 Problem Migraine with aura and without status migrainosus, not intractable G43.109 Active 5986998 ALLERGIES No Information ENCOUNTERS Encounter Location Date Diagnosis [facility] [id number] [place] [id number] Aug, [address] [id number] [place] [id number] Jun, [facility] [place] [facility] [id number] [place] [id number] Jun, [address] [id number][place] [id number] May, Essential (primary) hypertension I10 ; Lumbago with sciatica, right side M54.41 ; Anxiety F41.9 and BMI 45.0-49.9, adult Z68.42 [facility] [address] [facility] [id number] [place] [id number] May, Essential (primary) hypertension I10 ; Other chest pain R07.89 ; Dyspnea on exertion R06.09 ; Tobacco abuse Z72.0 ; Sleep apnea, unspecified type G47.30 ; BMI 45.0-49.9, adult Z68.[address] [facility] [id number] [place] [address] May, BMI 45.0-49.9, adult Z68.42 [facility] [id number] [place] [address] [id number] May, BMI 45.0-49.9, adult Z68.42 ; Lumbago with sciatica, right side M54.41 ; Anxiety F41.9 and Essential (primary) hypertension I10 [facility] [address] [place] [address] [id number] [phone] Apr, [facility] [id number] [place] [address] [id number] Apr, Anxiety F41.9 [facility] [id number], [place] [id number] Apr, Anxiety F41.9 [facility] [id number] [place] [address] [id number] Apr, [facility] [address] [place] [address] AVE [id number] [place] [id number] Apr, Dental examination Z01.20 [facility] [id number], [place] [id number] Apr, Anxiety F41.9 [facility] [id number], [place] [id number] Apr, Anxiety F41.9 and Lumbago with sciatica, right side M54.41 [facility] [id number], [place] [id number] March, Anxiety F41.9 [facility] [id number] [place] [address] [id number] March, Diverticulitis of large intestine, unspecified bleeding status, unspecified complication status K57.32 ; Anxiety F41.9 and Essential (primary) hypertension I10 [facility] [address] [id number] [id number] March, RUQ abdominal pain R10.11 [facility] [address]00565[address] [phone] Feb, Wheezing on auscultation R06.2 [facility] [id number] [place] [address] [id number] Feb, Anxiety F41.9 [facility] [address] [place] [address] [id number] Feb, [facility] [id number] [place] [address] [id number] Jan, BMI 50.0-59.9, adult Z68.43 ; Anxiety F41.9 ; Chest pain, unspecified type R07.9 and Essential (primary) hypertension I10 [address] [id number] [place] [id number] Jan, BMI 45.0-49.9, adult Z68.42 ; Morbid obesity E66.01 ; Chest pain, non-cardiac R07.89 ; Anxiety F41.9 ; Essential (primary) hypertension I10 and Tobacco abuse Z72.[address] [id number] [place] [id number] Jan, Essential (primary) hypertension I10 [place] [id number], [place] [id number] Dec, Essential (primary) hypertension I10 ; Migraine with aura and without status migrainosus, not intractable G43.109 ; Viral syndrome B34.9 and Lumbago with sciatica, right side M54.41 [place] [id number] [place] [address] [id number] Nov, BMI 45.0-49.9, adult Z68.42 ; Migraine with aura and without status migrainosus, not intractable G43.109 and Essential (primary) hypertension I10 [facility] [id number] [place] [address] [id number] Nov, Essential (primary) hypertension I10 [facility] [id number] [place] [address] [id number] Nov, BMI 45.0-49.9, adult Z68.42 ; Essential (primary) hypertension I10 ; Anxiety F41.9 ; Lumbago with sciatica, right side M54.41 and Other chronic pain G89.29 [facility] [id number] [place] [address] [id number] Nov, [facility] [id number] [place] [address] [id number] Aug, RUQ abdominal pain R10.11 [facility] [id number] [place] [address] [id number] Aug, Essential (primary) hypertension I10 and Anxiety F41.9 [facility] [id number] [place] [address] [id number] May, Essential (primary) hypertension I10 and Anxiety F41.9 [facility] [id number] [place] [address] [id number] March, Diverticulitis of large intestine, unspecified bleeding status, unspecified complication status K57.32 [facility] [address]00565100[place] [id number] March, [facility] [id number] [place] [address] [id number] March, [facility] [id number] [place] [address] [id number] March, Dysuria R30.0 and Chest wall pain R07.89 [facility] [id number] [place] [address] [id number] March, Anxiety F41.9 [facility] [id number], [place] [id number] Feb, Biliary dyskinesia K82.8 [facility] [id number] [place] [address] [id number] Feb, Biliary dyskinesia K82.8 [facility] [id number] [place] [address] [id number] Jan, Essential (primary) hypertension I10 and RUQ abdominal pain R10.11 [facility] [id number] [place] [address] [id number] Jan, Essential (primary) hypertension I10 and Anxiety F41.9 [facility] [address] [place] [address] [id number] Dec, Essential (primary) hypertension I10 [facility] [address] [place] [address] [id number] Nov, Migraine with aura and without status migrainosus, not intractable G43.109 and Essential (primary) hypertension I10 [facility] [id number] [place] [address] [id number] Nov, Anxiety F41.9 ; Migraine with aura and without status migrainosus, not intractable G43.109 and Insomnia, unspecified type G47.00 [facility] [id number] [place] [address] [id number] Oct, Migraine with aura and without status migrainosus, not intractable G43.109 [facility] [id number] [place] [address] [id number] Oct, Anxiety F41.9 and Essential (primary) hypertension I10 [facility] [address] [place] [address]86- [address]40 Oct, [facility] [id number] [place] [address] 62337- 4624 Sep, [facility] [id number] [place] [address] [id number] Sep, Diverticulitis of large intestine without perforation or abscess without bleeding K57.32 and Anxiety F41.9 [facility] [id number] [place] [address] [id number] Aug, Diverticulitis of large intestine without perforation or abscess without bleeding K57.32 [facility] [id number] [place] [address] 72951- 2546 Aug, [facility] [id number] [place] [address] [id number] Aug, [facility] [id number] [place] [address] 42481- 2546 Aug, [facility] [id number] [place] [address] [id number] Aug, [facility] [address] [place] [address] [id number] Jul, Ingrown left big toenail L60.0 [facility] [address] [place] [address] [id number] Jul, [facility] [address] [place] [address] [id number] Jul, Ingrowing toenail of right foot L60.0 [facility] [address] [place] [address] [id number] Apr, [facility] [address] [place] [address] [id number] Apr, RUQ abdominal pain R10.11 ; Fatty liver disease, nonalcoholic K76.0 ; Hx of hyperglycemia Z86.39 ; Elevated alanine aminotransferase (ALT) level R74.0 ; Elevated LDL cholesterol level E78.0 and Prediabetes R73.09 [facility] [address] [place] [address] [id number] Apr, RUQ abdominal pain R10.11 ; Mild persistent asthma without complication J45.30 ; Anxiety F41.9 and Essential (primary) hypertension I10 [id number] [place] [address] [id number] March, Wheezing R06.2 and Cough R05 [id number] [place] [address] [id number] March, [place] [address] [place] [id number] March, [address] [place] [address] [id number] March, Acute severe exacerbation of asthma J45.51 ; Cough R05 and Cough headache G44.83 [id number] [place] [address] [id number] Feb, Mild intermittent asthma with acute exacerbation J45.21 and Transient insomnia F51.02 [address] [place] [address] [id number] Feb, Pigmented skin lesion of uncertain nature L81.9 [id number] [place] [address] [id number] Feb, Anxiety F41.9 and Essential (primary) hypertension I10 [address] [place] [address] [id number] Jan, [address] [place] [address] [id number] Jan, Routine gynecological examination Z01.419 and Encounter for Papanicolaou smear for cervical cancer screening Z12.4 [address] [place] [address] [id number] 07 Jan, 2016 Essential (primary) hypertension I10 and Anxiety F41.9 [address] [place] [address] [id number] 10 Dec, 2015 Essential (primary) hypertension I10 and Anxiety F41.9 [address] [place] [address] [id number] Nov, Essential (primary) hypertension I[address] [facility] [address] [id number] [place] [id number] Aug, [address] [place] [address] [id number] Aug, CAP (community acquired pneumonia) J18.[id number] [place] [address] [id number] Aug, CAP (community acquired pneumonia) J18.9 [facility] [place] [address] [id number] [place] [id number] Aug, CAP (community acquired pneumonia) J18.9 [facility] [id number], [place] [id number] Aug, CAP (community acquired pneumonia) J18.9 and Essential (primary) hypertension I10 [facility] [address] [id number], [place] [id number] Aug, CAP (community acquired pneumonia) J18.9 [facility] [address]00565100[place], [place] [address] 2546 Apr, [facility] [place] [facility] [address] [place] [address] 96407- [phone] Feb, [facility] [id number] [place] [address] 96248- 3076 Feb, [facility] [id number], [place] [id number] Jan, [facility] [id number] [place] [address] 21247- 0526 Jan, [facility] [address] [place] [address] 50273- 2546 Nov, [facility] [id number], [place] [id number] Nov, [facility] [address]65[address], [place] [address]- 2546 Nov, [facility] [id number], [place] [id number] Oct, [facility] [address]65100[place], [place] [address]- 2546 Oct, [facility] [id number], [place] [id number] Sep, [facility] [place] [facility] [address]65100[place], [place] [address]- 2546 Sep, [facility] [address] [id number], [place] [id number] Jun, [facility] [place] [facility] [address] [facility] [id number][place] [address] Jun, [facility] [address] [facility] [id number] [place] [id number] Jun, [facility] [place] [facility] [address] [facility] [id number] [place] [address]- [address] Jun, [facility] [address] [id number], [place] [id number] May, [facility] [place] [facility] [address] [facility] [id number][place] [address]- 80[address] May, [facility] [address] [id number] [place] [id number] Dec, [facility] [place] [facility] [address] [facility] [id number], [place] [address]- [address] Dec, [facility] [address] [id number] [place] [id number] Feb, [facility] [address] [id number], [place] [id number] Feb, [facility] [address] [id number] [place] [id number] Feb, [facility] [place] [facility] [address]00565100[place], [place] [address]- 7[address] 16 Feb, 2013 [facility] [address] [id number], [place] [id number] 15 Feb, 2013 [facility] [address] [id number], [place] [id number] 15 Feb, 2013 [facility] [place] [facility] [address] [facility] [id number], [place] [address]- 39[address] 14 Feb, 2013 [facility] [place] [facility] [address] [facility] [id number], [place] [address]- 5024 13 Feb, 2013 [facility] [place] [facility] [address] [facility] [id number][place] [address]- 2874 12 Feb, 2013 [facility] [address] [id number], [place] [id number] 10 Feb, 2013 [facility] [address] [id number], [place] [id number] Feb, [facility] [address] [id number], [place] [id number] Jan, [facility] [address] [id number], [place] [id number] Nov, [facility] [address] [id number], [place] [id number] Nov, [facility] [address]00565100[place], [place] [address] Oct, [facility] [address]00565100[place], [place] [address]- [address] Apr, [facility] [address] [place] [address]54- 1912 Dec, [facility] [id number] [place] [address] 26901- 2957 Nov, [facility] [address] 2250665100[place], [place] [address]- 3915 Oct, [facility] [address] [place] [address] 00491- 7266 Oct, [facility] [address]65[address], [place] 274[address]- [address] Sep, [facility] [address]00565100[place], [place] [address]- [address] Sep, [facility] [address]00565[address], [place] [address]- 8230 Sep, IMMUNIZATIONS No Known Immunizations SOCIAL HISTORY Never Assessed REASON FOR VISIT medication PLAN OF CARE VITAL SIGNS MEDICATIONS Medication Instructions Dosage Frequency Start Date End Date Duration Status Cipro 500 mg Orally Twice a day 1 tablet 12h Aug, March, 10 days Active Flagyl 500 mg Orally 2 times a day 1 tablet 12h Apr, March, 10 days Active RESULTS No Results PROCEDURES No Known procedures INSTRUCTIONS MEDICATIONS ADMINISTERED No Known Medications MEDICAL (GENERAL) HISTORY Type Description Date Medical History hypertension Medical History asthma Medical History CT 08/2016 ED-sigmoid diverticulitis, hepatic steatosis, stable bilateral low density adrenal adenomas Medical History GERD Medical History IBSD Medical History sleep apnea Surgical History cholecystectomy 03/24/17 Hospitalization History Diverticulitis-[facility] 08/2016 Hospitalization History Generalized anxiety disorder-[facility] 09/2016 Hospitalization History Diverticulitis-[facility]. Left AMA 04/06/17 Hospitalization History ER visit for migraine 08/2017 Hospitalization History ER visit for chest pain 01/2018
--- OUTSIDE RECORDS SUMMARY | 2018-09-26 11:01 | XMS REPORT ---
Author Author MILAN VO Organization [facility] Address [address] [place] [address] Care Team Providers Care Water Quality Tester Name Role Phone MILAN VO Unavailable PROBLEMS Type Condition ICD9-CM Code IBD45-CS Code Onset Dates Condition Status SNOMED Code Problem Biliary dyskinesia K82.8 Active 451743611 Problem Diverticulitis of large intestine, unspecified bleeding status, unspecified complication status K57.32 Active 2751612 Problem RUQ abdominal pain R10.11 Active 227553234 Problem BMI 45.0-49.9, adult Z68.42 Active 613890848 Problem Sleep apnea, unspecified type G47.30 Active 26955622 Problem Other chronic pain G89.29 Active 33481899 Problem Lumbago with sciatica, right side M54.41 Active 525650158 Problem Tobacco abuse Z72.0 Active 651460754 Problem Morbid obesity E66.01 Active 447437972 Problem CAP (community acquired pneumonia) J18.9 Active 526395293 Problem Elevated LDL cholesterol level E78.0 Active 723403048 Problem Diverticulitis of large intestine without perforation or abscess without bleeding K57.32 Active 2556593 Problem Essential (primary) hypertension I10 Active 71451198 Problem Insomnia, unspecified type G47.00 Active 471367255 Problem Anxiety F41.9 Active 95335121 Problem Migraine with aura and without status migrainosus, not intractable G43.109 Active 8210933 ALLERGIES No Information ENCOUNTERS Encounter Location Date Diagnosis [facility] [address] [id number] [id number] Aug, [facility] [address] [facility] [id number] [place] [id number] Jun, [facility] [address] [id number], [place] [id number] Jun, [facility] [id number], [place] [id number] May, Essential (primary) hypertension I10 ; Lumbago with sciatica, right side M54.41 ; Anxiety F41.9 and BMI 45.0-49.9, adult Z68.42 [facility] [place] [address] [place] [address] [id number], [place] [id number] May, Essential (primary) hypertension I10 ; Other chest pain R07.89 ; Dyspnea on exertion R06.09 ; Tobacco abuse Z72.0 ; Sleep apnea, unspecified type G47.30 ; BMI 45.0-49.9, adult Z68.42 and Morbid obesity E66.01 [facility] [address] [place] [address] May, BMI 45.0-49.9, adult Z68.42 [facility] [place] [id number] [place] [address] [id number] May, BMI 45.0-49.9, adult Z68.42 ; Lumbago with sciatica, right side M54.41 ; Anxiety F41.9 and Essential (primary) hypertension I10 [place] [id number] [place] [id number] [phone] Apr, [facility] [id number] [place] [address] [id number] Apr, Anxiety F41.9 [facility] [place] [id number] [place] [address] [id number] Apr, Anxiety F41.9 [facility] [place] [id number] [place] [address] [id number] Apr, [facility] [place] [address] [place] [address] [id number], [place] [id number] Apr, Dental examination Z01.20 [facility] [id number], [place] [id number] Apr, Anxiety F41.9 [facility] [id number] [place] [address] [id number] Apr, Anxiety F41.9 and Lumbago with sciatica, right side M54.41 [facility] [id number] [place] [address] [id number] March, Anxiety F41.9 [facility] [id number] [place] [address] [id number] March, Diverticulitis of large intestine, unspecified bleeding status, unspecified complication status K57.32 ; Anxiety F41.9 and Essential (primary) hypertension I10 [facility] [id number] [place] [address] [id number] March, RUQ abdominal pain R10.11 [facility] [address]005[address] [phone] Feb, Wheezing on auscultation R06.2 [facility] [id number] [place] [address] [id number] Feb, Anxiety F41.9 [facility] [id number] [place] [address] [id number] Feb, [facility] [id number] [place] [address] [id number] Jan, BMI 50.0-59.9, adult Z68.43 ; Anxiety F41.9 ; Chest pain, unspecified type R07.9 and Essential (primary) hypertension I10 [address] [id number], [place] [id number] Jan, BMI 45.0-49.9, adult Z68.42 ; Morbid obesity E66.01 ; Chest pain, non-cardiac R07.89 ; Anxiety F41.9 ; Essential (primary) hypertension I10 and Tobacco abuse Z72.0 [address] [id number], [place] [id number] Jan, Essential (primary) hypertension I10 [place] [id number] [place] [address] [id number] Dec, Essential (primary) hypertension I10 ; Migraine with aura and without status migrainosus, not intractable G43.109 ; Viral syndrome B34.9 and Lumbago with sciatica, right side M54.41 [facility] [id number] [place] [address] [id number] Nov, BMI 45.0-49.9, adult Z68.42 ; Migraine with aura and without status migrainosus, not intractable G43.109 and Essential (primary) hypertension I10 [facility] [id number] [place] [address] [id number] Nov, Essential (primary) hypertension I10 [place] [address] [id number] Nov, BMI 45.0-49.9, adult Z68.42 ; Essential (primary) hypertension I10 ; Anxiety F41.9 ; Lumbago with sciatica, right side M54.41 and Other chronic pain G89.29 [facility] [id number] [place] [address] [id number] Nov, [address] [id number] Aug, RUQ abdominal pain R10.11 [facility] [id number] [place] [address] [id number] Aug, Essential (primary) hypertension I10 and Anxiety F41.9 [place] [id number] [place] [address] [id number] May, Essential (primary) hypertension I10 and Anxiety F41.9 [place] [id number] [place] [address] [id number] March, Diverticulitis of large intestine, unspecified bleeding status, unspecified complication status K57.32 [facility] [address] [place] [address] [id number] [address]31 March, [place] [id number] [place] [address] [id number] March, [facility] [id number] [place] [address] [id number] March, Chest wall pain R07.89 and Dysuria R30.0 [place] [id number] [place] [address] [id number] March, Anxiety F41.9 [facility] [id number][place] [id number] Feb, Biliary dyskinesia K82.8 [facility] [id number] [place] [address] [id number] Feb, Biliary dyskinesia K82.8 [facility] [id number] [place] [address] [id number] Jan, Essential (primary) hypertension I10 and RUQ abdominal pain R10.11 [facility] [id number] [place] [address] [id number] Jan, Essential (primary) hypertension I10 and Anxiety F41.9 [facility] [id number] [place] [address] [id number] Dec, Essential (primary) hypertension I10 [facility] [id number] [place] [address] [id number] Nov, Migraine with aura and without status migrainosus, not intractable G43.109 and Essential (primary) hypertension I10 [facility] [id number], [place] [id number] Nov, Anxiety F41.9 ; Migraine with aura and without status migrainosus, not intractable G43.109 and Insomnia, unspecified type G47.00 [facility] [id number] [place] [address] [id number] Oct, Migraine with aura and without status migrainosus, not intractable G43.109 [facility] [id number], [place] [id number] Oct, Anxiety F41.9 and Essential (primary) hypertension I10 [facility] [address] [id number] [address] Oct, [facility] [id number] [place] [address]- 9[address] Sep, [facility] [id number] [place] [address] [id number] Sep, Diverticulitis of large intestine without perforation or abscess without bleeding K57.32 and Anxiety F41.9 [facility] [id number] [place] [address] [id number] Aug, Diverticulitis of large intestine without perforation or abscess without bleeding K57.32 [facility] [id number] [place] [address] 46325- 0271 Aug, [facility] [id number] [place] [address] [id number] Aug, [facility] [id number] [place] [address] 08704- 7923 Aug, [facility] [id number] [place] [address] [id number] Aug, [facility] [address] [id number] Jul, Ingrown left big toenail L60.0 [facility] [id number] [place] [address] [id number] Jul, [facility] [address] [id number] Jul, Ingrowing toenail of right foot L60.0 [place] [id number] [place] [address] [id number] Apr, [facility] [id number] [place] [address] [id number] Apr, RUQ abdominal pain R10.11 ; Fatty liver disease, nonalcoholic K76.0 ; Hx of hyperglycemia Z86.39 ; Elevated alanine aminotransferase (ALT) level R74.0 ; Elevated LDL cholesterol level E78.0 and Prediabetes R73.09 [place] [id number] [place] [address] [id number] Apr, RUQ abdominal pain R10.11 ; Mild persistent asthma without complication J45.30 ; Anxiety F41.9 and Essential (primary) hypertension I10 [place] [id number] [place] [address] [id number] March, Wheezing R06.2 and Cough R05 [place] [id number] [place] [address] [id number] March, [place] [id number], [place] [id number] March, [place] [id number] [place] [address] [id number] March, Acute severe exacerbation of asthma J45.51 ; Cough R05 and Cough headache G44.83 [place] [id number] [place] [address] [id number] Feb, Mild intermittent asthma with acute exacerbation J45.21 and Transient insomnia F51.02 [place] [id number] [place] [address] [id number] Feb, Pigmented skin lesion of uncertain nature L81.[address] [id number] Feb, Anxiety F41.9 and Essential (primary) hypertension I10 [place] [id number] [place] [address] [id number] Jan, [place] [id number] [place] [address] [id number] Jan, Routine gynecological examination Z01.419 and Encounter for Papanicolaou smear for cervical cancer screening Z12.4 [place] [id number] [place] [address] [id number] Jan, Essential (primary) hypertension I10 and Anxiety F41.9 [address] [place] [address] [id number] Dec, Essential (primary) hypertension I10 and Anxiety F41.9 [place] [id number] [place] [address] [id number] Nov, Essential (primary) hypertension I10 [facility] [address] [id number], [place] [id number] Aug, [address] [place] [address] [id number] Aug, CAP (community acquired pneumonia) J18.9 [address] [place] [address] [id number] Aug, CAP (community acquired pneumonia) J18.[address] [facility] [address] [id number], [place] [id number] Aug, CAP (community acquired pneumonia) J18.9 [facility] [place] [id number], [place] [id number] Aug, CAP (community acquired pneumonia) J18.9 and Essential (primary) hypertension I10 [facility] [id number], [place] [id number] Aug, CAP (community acquired pneumonia) J18.9 [facility] [place] [facility] [address]00565100[place] [address]- 00[address] Apr, [facility] [place] [facility] [id number] [place] [address] 80431- [phone] Feb, [facility] [address]00565100[place] [address]- 5[address] Feb, [facility] [id number], [place] [id number] Jan, [facility] [address]00565100[place] [address]- 8106 Jan, [facility] [address] [place] [address] 96352- 7175 Nov, [facility] [id number], [place] [id number] Nov, [facility] [address] [place] [address] [id number] [address]- 6026 Nov, [facility] [id number], [place] [id number] Oct, [facility] [address] [id number] [address]- 2546 Oct, [facility] [id number], [place] [id number] Sep, [facility] [address] [id number] [address]- 7596 Sep, [facility] [address] [id number], [place] [id number] Jun, [facility] [place] [facility] [address] [id number] [place] [address]- 1643 Jun, [facility] [address] [id number] [place] [id number] Jun, [facility] [place] [facility] [address] [facility] [id number] [address]- 2416 Jun, [facility] [address] [id number] [place] [id number] May, [facility] [place] [facility] [address] [id number] [place] [address]- 2662 May, [facility] [address] [id number] [place] [id number] Dec, [facility] [place] [facility] [address] [facility] [id number] [address]- [address] Dec, [facility] [address] [id number] [place] [id number] Feb, [facility] [address] [id number] [place] [id number] Feb, [facility] [address] [id number] [place] [id number] Feb, [facility] [place] [facility] [address] [facility] [id number] [place] [address]- 0[address] 16 Feb, 2013 [facility] [address] [id number], [place] [id number] 15 Feb, 2013 [facility] [address] [id number], [place] [id number] 15 Feb, 2013 [facility] [place] [facility] [address] [facility] [id number] [place] [address]- 8931 14 Feb, 2013 [facility] [place] [facility] [address] [facility] [id number] [place] [address]- 4[address] 13 Feb, 2013 [facility] [place] [facility] [address] [facility] [id number] [address]- 0466 12 Feb, 2013 [facility] [address] [facility] [id number], [place] [id number] Feb, [facility] [address] [id number], [place] [id number] Feb, [facility] [address] [id number], [place] [id number] Jan, [facility] [address] [id number], [place] [id number] Nov, [facility] [address] [id number], [place] [id number] Nov, [facility] [address] [place] [address] 44951- 2546 Oct, [facility] [id number] [place] [address] 75284- 7378 Apr, [facility] [id number] [place] [address] 53040- 1316 Dec, [facility] [id number] [place] [address] 07025- 1341 Nov, [facility] [address]00565100[place] [address]- 0853 Oct, [facility] [id number] [place] [address] 40963- 8700 Oct, [facility] [address]00565100[place] [address]- 9683 Sep, [facility] [address] [place] [address] 48446- 6913 Sep, [facility] [address]100[place] [address]- 5746 Sep, IMMUNIZATIONS No Known Immunizations SOCIAL HISTORY Never Assessed REASON FOR VISIT EKG PLAN OF CARE VITAL SIGNS MEDICATIONS Unknown Medications RESULTS No Results PROCEDURES Procedure Date Ordered Result Body Site EKG, TRACING (IN-HOUSE) 2018-01-30 N/A ELECTROCARDIOGRAM, TRACING January 30, 2018 INSTRUCTIONS MEDICATIONS ADMINISTERED No Known Medications MEDICAL (GENERAL) HISTORY Type Description Date Medical History hypertension Medical History asthma Medical History CT 08/2016 ED-sigmoid diverticulitis, hepatic steatosis, stable bilateral low density adrenal adenomas Medical History GERD Medical History IBSD Medical History sleep apnea Surgical History cholecystectomy 03/24/17 Hospitalization History [facility]verticulitis-[facility] 08/2016 Hospitalization History Generalized anxiety disorder-[facility] 09/2016 Hospitalization History Diverticulitis-[facility]. Left AMA 04/06/17 Hospitalization History ER visit for migraine 08/2017 Hospitalization History ER visit for chest pain 01/2018
--- OUTSIDE RECORDS SUMMARY | 2018-09-26 11:01 | XMS REPORT ---
Author Author NUZHAT FRANKS [facility] Address [address] [place] [address] Care Team Providers Care Pastor Name Role Phone NUZHAT FRANKS Unavailable PROBLEMS Type Condition ICD9-CM Code [id number] Code Onset Dates Condition Status SNOMED Code Problem Biliary dyskinesia K82.8 Active 274874821 Problem Diverticulitis of large intestine, unspecified bleeding status, unspecified complication status K57.32 Active 8333372 Problem RUQ abdominal pain R10.11 Active 730065493 Problem BMI 45.0-49.9, adult Z68.42 Active 700278092 Problem Sleep apnea, unspecified type G47.30 Active 38698597 Problem Other chronic pain G89.29 Active 66824712 Problem Lumbago with sciatica, right side M54.41 Active 399536552 Problem Tobacco abuse Z72.0 Active 995238270 Problem Morbid obesity E66.01 Active 638706013 Problem CAP (community acquired pneumonia) J18.9 Active 360398660 Problem Elevated LDL cholesterol level E78.0 Active 977186149 Problem Diverticulitis of large intestine without perforation or abscess without bleeding K57.32 Active 1745762 Problem Essential (primary) hypertension I10 Active 08453036 Problem Insomnia, unspecified type G47.00 Active 010240405 Problem Anxiety F41.9 Active 15221504 Problem Migraine with aura and without status migrainosus, not intractable G43.109 Active 7536693 ALLERGIES Substance Reaction Event Type Date Status Lisinopril cough Drug Allergy Feb, Active BuSpar suicidal thoughts, increased anxiety Drug Allergy Feb, Active ENCOUNTERS Encounter Location Date Diagnosis [facility] [address] [id number] [place] [id number] Aug, [facility] [address] [id number] [place] [id number] Jun, [facility] [id number] [place] [id number] May[facility] [place] [address] [facility] [facility] [address] [id number] [id number] May, Essential (primary) hypertension I10 ; Other chest pain R07.89 ; Dyspnea on exertion R06.09 ; Tobacco abuse Z72.0 ; Sleep apnea, unspecified type G47.30 ; BMI 45.0-49.9, adult Z68.42 and Morbid obesity E66.01 [facility] [address]100[place] [address] May, BMI 45.0-49.9, adult Z68.42 [facility] [place] [id number] [place] [address] [id number] May, BMI 45.0-49.9, adult Z68.42 ; Lumbago with sciatica, right side M54.41 ; Anxiety F41.9 and Essential (primary) hypertension I10 [facility] [address]100[place] [address] Apr, [facility] [place] [id number] [place] [id number] Apr, Anxiety F41.9 [facility] [place] [id number] [place] [address] [id number] Apr, Anxiety F41.9 [facility] [place] [id number] [place] [id number] Apr, [facility] [place] [address] [facility] [address] [id number] [id number] Apr, Dental examination Z01.20 [facility] [place] [address] [facility] [id number] [place] [id number] Apr, Anxiety F41.9 [facility] [place] [id number] [place] [address] [id number] Apr, Anxiety F41.9 and Lumbago with sciatica, right side M54.41 [facility] [place] [id number] [place] [id number] March, Anxiety F41.9 [facility] [id number] [place] [id number] March, Diverticulitis of large intestine, unspecified bleeding status, unspecified complication status K57.32 ; Anxiety F41.9 and Essential (primary) hypertension I10 [facility] [id number] [place] [id number] March, RUQ abdominal pain R10.11 [facility] [address] [id number] Feb, Wheezing on auscultation R06.2 [facility] [id number] [place] [address] [id number] Feb, Anxiety F41.9 [facility] [id number] [place] [address] [id number] Feb, [facility] [id number] [place] [address] [id number] Jan, BMI 50.0-59.9, adult Z68.43 ; Anxiety F41.9 ; Chest pain, unspecified type R07.9 and Essential (primary) hypertension I10 [address] [id number] [id number] Jan, BMI 45.0-49.9, adult Z68.42 ; Morbid obesity E66.01 ; Chest pain, non-cardiac R07.89 ; Anxiety F41.9 ; Essential (primary) hypertension I10 and Tobacco abuse Z72.[address] [id number] [id number] Jan, Essential (primary) hypertension I10 [address] [id number] [place] [id number] Dec, Essential (primary) hypertension I10 ; Migraine with aura and without status migrainosus, not intractable G43.109 ; Viral syndrome B34.9 and Lumbago with sciatica, right side M54.41 [facility] [address]65100[place] [id number] Nov, BMI 45.0-49.9, adult Z68.42 ; Migraine with aura and without status migrainosus, not intractable G43.109 and Essential (primary) hypertension I10 [facility] [id number] [place] [address] [id number] Nov, Essential (primary) hypertension I10 [facility] [id number] [place] [address] [id number] Nov, BMI 45.0-49.9, adult Z68.42 ; Essential (primary) hypertension I10 ; Anxiety F41.9 ; Lumbago with sciatica, right side M54.41 and Other chronic pain G89.29 [facility] [place] [id number] [place] [address] [id number] Nov, [facility] [id number] [place] [address] [id number] Aug, RUQ abdominal pain R10.11 [facility] [id number] [place] [address] [id number] Aug, Essential (primary) hypertension I10 and Anxiety F41.9 [facility] [id number] [place] [address] [id number] May, Essential (primary) hypertension I10 and Anxiety F41.9 [facility] [id number] [place] [address] [id number] March, Diverticulitis of large intestine, unspecified bleeding status, unspecified complication status K57.32 [facility] [address]100[place] [address] March, [facility] [id number] [place] [address] [id number] March, [facility] [id number] [place] [address] [id number] March, Chest wall pain R07.89 and Dysuria R30.0 [facility] [id number] [place] [address] [id number] March, Anxiety F41.9 [facility] [address] [place] [address] [id number] Feb, Biliary dyskinesia K82.8 [facility] [id number] [place] [address] [id number] Feb, Biliary dyskinesia K82.8 [facility] [place] [id number] [place] [address] [id number] Jan, Essential (primary) hypertension I10 and RUQ abdominal pain R10.11 [facility] [place] [id number] [place] [address] [id number] Jan, Essential (primary) hypertension I10 and Anxiety F41.9 [facility] [place] [id number] [place] [address] [id number] Dec, Essential (primary) hypertension I10 [facility] [place] [id number] [place] [address] [id number] Nov, Migraine with aura and without status migrainosus, not intractable G43.109 and Essential (primary) hypertension I10 [facility] [place] [id number] [place] [address] [id number] Nov, Anxiety F41.9 ; Migraine with aura and without status migrainosus, not intractable G43.109 and Insomnia, unspecified type G47.00 [facility] [place] [id number] [place] [address] [id number] Oct, Migraine with aura and without status migrainosus, not intractable G43.109 [facility] [place] [id number] [place] [address] [id number] Oct, Anxiety F41.9 and Essential (primary) hypertension I10 [facility] [id number] [place] [address] Oct, [facility] [id number] [place] [address] Sep, [facility] [id number] [place] [address] [id number] Sep, Diverticulitis of large intestine without perforation or abscess without bleeding K57.32 and Anxiety F41.9 [facility] [place] [id number] [place] [address] [id number] Aug, Diverticulitis of large intestine without perforation or abscess without bleeding K57.32 [facility] [address] [address] Aug, [facility] [id number] [place] [address] [id number] Aug, [facility] [address], [place] [address] Aug, [facility] [id number] [place] [address] [id number] Aug, [facility] [id number] [place] [address] [id number] Jul, Ingrown left big toenail L60.0 [facility] [id number] [place] [address] [id number] Jul, [facility] [id number] [place] [address] [id number] Jul, Ingrowing toenail of right foot L60.0 [facility] [id number] [place] [address] [id number] Apr, [facility] [id number] [place] [address] [id number] Apr, RUQ abdominal pain R10.11 ; Fatty liver disease, nonalcoholic K76.0 ; Hx of hyperglycemia Z86.39 ; Elevated alanine aminotransferase (ALT) level R74.0 ; Elevated LDL cholesterol level E78.0 and Prediabetes R73.09 [facility] [id number] [place] [address] [id number] Apr, RUQ abdominal pain R10.11 ; Mild persistent asthma without complication J45.30 ; Anxiety F41.9 and Essential (primary) hypertension I10 [id number] [place] [address] [id number] March, Wheezing R06.2 and Cough R05 [id number] [place] [address] [id number] March, [facility] [id number] [place] [address] [id number] March, [id number] [place] [address] [id number] March, Acute severe exacerbation of asthma J45.51 ; Cough R05 and Cough headache G44.[address] [place] [address] [id number] Feb, Mild intermittent asthma with acute exacerbation J45.21 and Transient insomnia F51.02 [id number] [place] [address] [id number] Feb, Pigmented skin lesion of uncertain nature L81.9 [id number] [place] [address] [id number] Feb, Anxiety F41.9 and Essential (primary) hypertension I10 [id number] [place] [address] [id number] Jan, [address] [id number] Jan, Routine gynecological examination Z01.419 and Encounter for Papanicolaou smear for cervical cancer screening Z12.4 [id number] [place] [address] [id number] Jan, Essential (primary) hypertension I10 and Anxiety F41.9 [id number] [place] [address] [id number] Dec, Essential (primary) hypertension I10 and Anxiety F41.9 [id number] [place] [address] [id number] Nov, Essential (primary) hypertension I10 [facility] [address] [id number] [id number] Aug, [address] [place] [address] [id number] Aug, CAP (community acquired pneumonia) J18.9 [id number] [place] [address] [id number] Aug, CAP (community acquired pneumonia) J18.[address] [facility] [address] [id number] [id number] Aug, CAP (community acquired pneumonia) J18.9 [id number] [place] [address] [id number] Aug, CAP (community acquired pneumonia) J18.9 and Essential (primary) hypertension I10 [facility] [place] [id number] [place] [address] [id number] Aug, CAP (community acquired pneumonia) J18.9 [facility] [address] [address] Apr, [facility] [id number] [place] [address] 6[address]- 480[address] Feb, [facility] [id number] [place] [address] 24[address]- 9236 Feb, [facility] [place] [id number] [place] [address] [id number] Jan, [facility] [id number] [place] [address] 57[address]- 8996 Jan, [facility] [id number] [place] [address] 80485- 8246 Nov, [facility] [place] [id number] [place] [id number] Nov, [facility] [address], [place] [address]46 Nov, [facility] [place] [id number] [place] [id number] Oct, [facility] [address] [address] 25[address] Oct, [facility] [place] [id number] [place] [id number] Sep, [facility] [address] [address] Sep, [facility] [id number] [place] [id number] Jun, [facility] [address] [address] Jun, [facility] [place] [address] [id number] [place] [id number] Jun, [facility] [address] [id number][place] [address] Jun, [facility] [address] [id number] [place] [id number] May, [facility] [place] [facility] [address] [facility] [id number] [address] May, [facility] [place] [address] [id number] [place] [id number] Dec, [facility] [address] [facility] [id number] [place] [id number] Dec, [facility] [address] [id number] [place] [id number] Feb, [facility] [address] [id number] [place] [id number] Feb, [facility] [address] [id number] [place] [id number] Feb, [facility] [address] [facility] [id number], [place] [address]89848- [address] 16 Feb, 2013 [facility] [address] [id number] [place] [id number] Feb, [facility] [address] [id number] [place] [id number] Feb, [facility] [address] [facility] [id number], [place] [address]- [address] 14 Feb, 2013 [facility] [place] [facility] [address] [facility] [id number], [place] 50476503- 9071 13 Feb, 2013 [facility] [place] [facility] [address] [facility] [id number][place] 62396784- [address] 12 Feb, 2013 [facility] [place] [address] [id number] [place] [id number] Feb, [facility] [address] [id number] [place] [id number] Feb, [facility] [address] [id number] [place] [id number] Jan, [facility] [address] [facility] [id number] [place] [id number] Nov, [facility] [address] [id number] [place] [id number] Nov, [facility] [address] [address] 8[address] Oct, [facility] [address] [address]- 3[address] Apr, [facility] [address]100[place] [address]- 37[address] Dec, [facility] [address] [place] [address] 014[address]- 8651 Nov, [facility] [address] [address] Oct, [facility] [address] [address] Oct, [facility] [address], [place] [address]- 54[address] Sep, [facility] [address] [address]- 4968 Sep, [facility] [address] [id number] [address] Sep, IMMUNIZATIONS No Known Immunizations SOCIAL HISTORY Never Assessed REASON FOR VISIT CHM- 4 wwek on anxiety. Stopped buspar due to increased anxiety and nightmares Oneyda ALBERTS PLAN OF CARE Activity Details Follow Up 4 Weeks Reason:anxiety VITAL SIGNS Height 66 in 2018-03-06 Weight 310.8 lbs 2018-03-06 Temperature 98.1 degrees Fahrenheit 2018-03-06 Heart Rate 84 bpm 2018-03-06 Respiratory Rate 16 2018-03-06 BMI 50.16 kg/m2 2018-03-06 Blood pressure systolic 138 mmHg 2018-03-06 Blood pressure diastolic 90 mmHg 2018-03-06 MEDICATIONS Medication Instructions Dosage Frequency Start Date End Date Duration Status Amlodipine Besylate 5 MG Orally Once a day 1 tablet 24h Nov, Active Promethazine HCl 25 MG Orally every 12 hrs 1 tablet as needed 12h Nov, Not-Taking Gabapentin 300 MG Orally Three times a day 1 capsule 1 tab qhs x 5 d then bid x 5 d then tid 8h Nov, Not-Taking Clonazepam ODT 1 MG Orally one time 1 tablet on the tongue and allow to dissolve Feb, Active Flonase 50 MCG/DOSE Nasally Once a day 1 spray in each nostril 24h Not-Taking ZyrTEC 10 MG Orally Once a day 1 tablet 24h Not-Taking Losartan Potassium 100 mg Orally Once a day 1 tablet 24h Nov, Active Clonazepam 1 MG Orally Twice a day .5-1 tablet 12h Sep, 0 days Active Atenolol 100 MG Orally Once a day 1 tablet 24h Nov, Active Nitroglycerin 0.4 MG Not-Taking Albuterol Sulfate 90 mcg/actuation Inhalation every 8 hrs 2 puffs by Inhalation route every 4-6 hours as needed PRN cough or wheezing 8h May, Not-Taking Sertraline HCl 25 MG Orally Once a day 1 tablet x 2 wk then 2 tab qd 24h Feb, Active Singulair 10 MG Orally Once a day 1 tablet in the evening 24h Not- Taking RESULTS No Results PROCEDURES No Known procedures [...]
--- OUTSIDE RECORDS SUMMARY | 2018-09-26 11:02 | XMS REPORT ---
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 Name Role Phone NUZHAT FRANKS Unavailable PROBLEMS Type Condition ICD9-CM Code JKL69-YU Code Onset Dates Condition Status SNOMED Code Problem Insomnia, unspecified type G47.00 Active 296828523 Problem Biliary dyskinesia K82.8 Active 062172705 Problem Migraine with aura and without status migrainosus, not intractable G43.109 Active 4494388 Problem Tobacco abuse Z72.0 Active 030677050 Problem Morbid obesity E66.01 Active 279805739 Problem Diverticulitis of large intestine, unspecified bleeding status, unspecified complication status K57.32 Active 0593702 Problem RUQ abdominal pain R10.11 Active 668584070 Problem Other chronic pain G89.29 Active 91753207 Problem Lumbago with sciatica, right side M54.41 Active 157709714 Problem Essential (primary) hypertension I10 Active 30702252 Problem Anxiety F41.9 Active 40098889 Problem Elevated LDL cholesterol level E78.0 Active 025302425 Problem CAP (community acquired pneumonia) J18.9 Active 032297839 Problem Diverticulitis of large intestine without perforation or abscess without bleeding K57.32 Active 6049929 ALLERGIES No Information ENCOUNTERS Encounter Location Date Diagnosis [facility] [address] [id number] [id number] Jun, [facility] [address] [facility] [id number][place] [id number] May, [facility] [address] [id number] [id number] May, [facility] [address] [id number] [address] May, BMI 45.0-49.9, adult Z68.42 [facility] [id number] [place] [address] [id number] May, BMI 45.0-49.9, adult Z68.42 ; Lumbago with sciatica, right side M54.41 ; Anxiety F41.9 and Essential (primary) hypertension I10 [facility] [address]005[address]100[place] [address] Apr, [facility] [place] [id number] [place] [address] [id number] Apr, Anxiety F41.9 [facility] [place] [id number] [place] [address] [id number] Apr, Anxiety F41.9 [facility] [place] [id number] [place] [address] [id number] Apr, [facility] [address] [id number] [id number] Apr, Dental examination Z01.20 [facility] [place] [id number] [place] [address] [id number] Apr, Anxiety F41.9 [facility] [place] [id number] [place] [address] [id number] Apr, Anxiety F41.9 and Lumbago with sciatica, right side M54.41 [facility] [place] [id number] [place] [address] [id number] March, Anxiety F41.9 [facility] [place] [id number] [place] [address] [id number] March, Diverticulitis of large intestine, unspecified bleeding status, unspecified complication status K57.32 ; Anxiety F41.9 and Essential (primary) hypertension I10 [facility] [place] [id number] [place] [address] [id number] March, RUQ abdominal pain R10.11 [facility] [address]100[place] [address] Feb, Wheezing on auscultation R06.2 [facility] [place] [id number] [place] [address] [id number] Feb, Anxiety F41.9 [facility] [address] [facility] [id number][place] [id number] Feb, [place] [id number] [place] [address] [id number] Jan, BMI 50.0-59.9, adult Z68.43 ; Anxiety F41.9 ; Chest pain, unspecified type R07.9 and Essential (primary) hypertension I10 [address] [id number], [place] [id number] Jan, BMI 45.0-49.9, adult Z68.42 ; Morbid obesity E66.01 ; Chest pain, non-cardiac R07.89 ; Anxiety F41.9 ; Essential (primary) hypertension I10 and Tobacco abuse Z72.[address] [id number], [place] [id number] Jan, Essential (primary) hypertension I10 [address]00565[address] [id number] Dec, Essential (primary) hypertension I10 ; Migraine with aura and without status migrainosus, not intractable G43.109 ; Viral syndrome B34.9 and Lumbago with sciatica, right side M54.41 [address]00565100[place] [id number] Nov, BMI 45.0-49.9, adult Z68.42 ; Migraine with aura and without status migrainosus, not intractable G43.109 and Essential (primary) hypertension I10 [place] [id number] [id number] Nov, Essential (primary) hypertension I10 [place] [id number] [id number] Nov, BMI 45.0-49.9, adult Z68.42 ; Essential (primary) hypertension I10 ; Anxiety F41.9 ; Lumbago with sciatica, right side M54.41 and Other chronic pain G89.29 [address] [place] [address] [id number] Nov, [facility] [place] [address] [id number], [place] [id number] Aug, RUQ abdominal pain R10.11 [facility] [place] [id number] [place] [address] [id number] Aug, Essential (primary) hypertension I10 and Anxiety F41.9 [facility] [place] [id number], [place] [id number] May, Essential (primary) hypertension I10 and Anxiety F41.9 [facility] [id number] [place] [address] [id number] March, Diverticulitis of large intestine, unspecified bleeding status, unspecified complication status K57.32 [facility] [address]00565100[place] [address] March, [facility] [id number] [place] [address] [id number] March, [facility] [id number] [place] [address] [id number] March, Chest wall pain R07.89 and Dysuria R30.0 [facility] [place] [id number] [place] [address] [id number] March, Anxiety F41.9 [facility] [id number] [place] [address] [id number] Feb, Biliary dyskinesia K82.8 [facility] [id number], [place] [id number] Feb, Biliary dyskinesia K82.8 [facility] [id number] [place] [address] [id number] Jan, Essential (primary) hypertension I10 and RUQ abdominal pain R10.11 [facility] [place] [id number] [place] [address] [id number] Jan, Essential (primary) hypertension I10 and Anxiety F41.9 [facility] [id number], [place] [id number] Dec, Essential (primary) hypertension I10 [facility] [place] [id number] [place] [address] [id number] Nov, Migraine with aura and without status migrainosus, not intractable G43.109 and Essential (primary) hypertension I10 [facility] [id number] [place] [address] [id number] Nov, Anxiety F41.9 ; Migraine with aura and without status migrainosus, not intractable G43.109 and Insomnia, unspecified type G47.00 [facility] [id number] [place] [address] [id number] Oct, Migraine with aura and without status migrainosus, not intractable G43.109 [facility] [place] [id number] [place] [address] [id number] Oct, Anxiety F41.9 and Essential (primary) hypertension I10 [facility] [id number] [place] [address] Oct, [facility] [address] [address] Sep, [facility] [id number] [place] [address] [id number] Sep, Diverticulitis of large intestine without perforation or abscess without bleeding K57.32 and Anxiety F41.9 [address] [place] [address] [id number] Aug, Diverticulitis of large intestine without perforation or abscess without bleeding K57.32 [facility] [id number] [place] [address] Aug, [facility] [id number] [place] [address] [id number] Aug, [facility] [address] [address] Aug, [facility] [id number] [place] [address] [id number] Aug, [facility] [address] [place] [address] [id number] Jul, Ingrown left big toenail L60.0 [place] [id number] [place] [address] [id number] Jul, [place] [id number] [place] [address] [id number] Jul, Ingrowing toenail of right foot L60.[address] [id number] Apr, [address] [id number] Apr, RUQ abdominal pain R10.11 ; Fatty liver disease, nonalcoholic K76.0 ; Hx of hyperglycemia Z86.39 ; Elevated alanine aminotransferase (ALT) level R74.0 ; Elevated LDL cholesterol level E78.0 and Prediabetes R73.09 [place] [address] [place] [address] [id number] Apr, RUQ abdominal pain R10.11 ; Mild persistent asthma without complication J45.30 ; Anxiety F41.9 and Essential (primary) hypertension I10 [place] [address] [place] [address] [id number] March, Wheezing R06.2 and Cough R05 [address] [id number] March, [place] [address] [place] [id number] March, [address] [id number] March, Acute severe exacerbation of asthma J45.51 ; Cough R05 and Cough headache G44.[address] [id number] Feb, 2016 Mild intermittent asthma with acute exacerbation J45.21 and Transient insomnia F51.[address] [id number] Feb, Pigmented skin lesion of uncertain nature L81.9 [place] [address] [place] [address] [id number] Feb, Anxiety F41.9 and Essential (primary) hypertension I10 [address] [place] [id number] Jan, [facility] [id number] [place] [address] [id number] 23 Jan, 2016 Routine gynecological examination Z01.419 and Encounter for Papanicolaou smear for cervical cancer screening Z12.4 [facility] [id number] [place] [address] [id number] 07 Jan, 2016 Essential (primary) hypertension I10 and Anxiety F41.9 [facility] [id number] [place] [address] [id number] Dec, 2015 Essential (primary) hypertension I10 and Anxiety F41.9 [place] [id number] [place] [address] [id number] Nov, Essential (primary) hypertension I10 [facility] [id number] [place] [address] [id number] Aug, [id number] [place] [address] [id number] Aug, CAP (community acquired pneumonia) J18.9 [facility] [address] [place] [address] [id number] Aug, CAP (community acquired pneumonia) J18.9 [facility] [id number] [place] [address] [id number] Aug, CAP (community acquired pneumonia) J18.9 [address] [place] [address] [id number] Aug, CAP (community acquired pneumonia) J18.9 and Essential (primary) hypertension I10 [facility] [address] [place] [address] [id number] Aug, CAP (community acquired pneumonia) J18.9 [facility] [id number] [place] [address] [id number] [address] Apr, [facility] [id number] [place] [address] [id number] Feb, [facility] [id number] [place] [address] [id number] Feb, [facility] [place] [address] [id number] [place] [id number] Jan, [facility] [place] [facility] [address] [facility] [id number] [place] [address] Jan, [facility] [place] [facility] [address] [facility] [id number] [place] [address]- [address] Nov, [facility] [place] [address] [facility] [id number] [place] [id number] Nov, [facility] [place] [facility] [address] [facility] [id number] [place] [address]- [address] Nov, [facility] [place] [address] [id number] [place] [id number] Oct, [facility] [place] [facility] [address]100[place] [address] Oct, [facility] [place] [address] [facility] [id number], [place] [id number] Sep, [facility] [place] [facility] [address]100[place] [address] Sep, [facility] [place] [address] [facility] [id number], [place] [id number] Jun, [facility] [place] [facility] [address]100[place] [address] Jun, [facility] [place] [address] [facility] [id number], [place] [id number] Jun, [facility] [place] [facility] [address] [facility] [id number] [place] [address] Jun, [facility] [address] [facility] [id number] [place] [id number] May, [facility] [place] [facility] [address] [facility] [id number] [place] [address]- [address] May, [facility] [place] [address] [facility] [id number], [place] [id number] Dec, [facility] [place] [facility] [address] [facility] [id number] [address] Dec, [facility] [place] [address] [id number] [place] [id number] Feb, [facility] [place] [address] [id number] [place] [id number] Feb, [facility] [place] [address] [id number] [place] [id number] Feb, [facility] [address] [facility] [id number] [address] Feb, [facility] [place] [address] [id number] [place] [id number] Feb, [facility] [place] [address] [id number] [place] [id number] Feb, [facility] [address]100[place] [address] Feb, [facility] [address]100[place] [address]- 8[address] Feb, [facility] [address]100[place] [address]- [address] Feb, [facility] [place] [address] [id number] [place] [id number] Feb, [facility] [place] [address] [id number] [place] [id number] Feb, [facility] [place] [address] [id number] [place] [id number] Jan, [facility] [place] [address] [id number] [place] [id number] Nov, [facility] [place] [address] [id number] [place] [id number] Nov, [facility] [address] [id number] [address]- [address] Oct, [facility] [place] [facility] [address]100[place] [address] Apr, [facility] [address] [address] Dec, [facility] [address] [facility] [id number] [place] [address]- [address] Nov, [facility] [address] [id number] [address] Oct, [facility] [address] [facility] [id number] [address] Oct, [facility] [address] [id number] [address]- [address] Sep, [facility] [address] [id number] [address]- 9[address] Sep, [facility] [address] [id number] 4627[place] Sep, IMMUNIZATIONS No Known Immunizations SOCIAL HISTORY Never Assessed REASON FOR VISIT Medication question PLAN OF CARE VITAL SIGNS MEDICATIONS Unknown Medications RESULTS No Results PROCEDURES No Known procedures INSTRUCTIONS MEDICATIONS ADMINISTERED No Known Medications MEDICAL (GENERAL) HISTORY Type Description Date Medical History hypertension Medical History asthma Medical History CT 08/2016 ED-sigmoid diverticulitis, hepatic steatosis, stable bilateral low density adrenal adenomas Medical History GERD Medical History IBSD Medical History sleep apnea Surgical History cholecystectomy 03/24/17 Hospitalization History [facility]verticulitis-[facility] 08/2016 Hospitalization History Generalized anxiety disorder-[facility] 09/2016 Hospitalization History Diverticulitis-[facility]. Left AMA 04/06/17 Hospitalization History ER visit for migraine 08/2017 Hospitalization History ER visit for chest pain 01/2018
--- OUTSIDE RECORDS SUMMARY | 2018-09-26 11:02 | XMS REPORT ---
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 Name Role Phone NUZHAT FRANKS Unavailable PROBLEMS Type Condition ICD9-CM Code [id number] Code Onset Dates Condition Status SNOMED Code Problem Insomnia, unspecified type G47.00 Active 520457806 Problem Biliary dyskinesia K82.8 Active 858441115 Problem Migraine with aura and without status migrainosus, not intractable G43.109 Active 2384581 Problem Tobacco abuse Z72.0 Active 387231891 Problem Morbid obesity E66.01 Active 486553086 Problem Diverticulitis of large intestine, unspecified bleeding status, unspecified complication status K57.32 Active 1964476 Problem RUQ abdominal pain R10.11 Active 695700056 Problem Other chronic pain G89.29 Active 92163275 Problem Lumbago with sciatica, right side M54.41 Active 380393206 Problem Essential (primary) hypertension I10 Active 65319158 Problem Anxiety F41.9 Active 49128741 Problem Elevated LDL cholesterol level E78.0 Active 683973596 Problem CAP (community acquired pneumonia) J18.9 Active 873882770 Problem Diverticulitis of large intestine without perforation or abscess without bleeding K57.32 Active 6731424 ALLERGIES Substance Reaction Event Type Date Status Lisinopril cough Drug Allergy Jan, Active ENCOUNTERS Encounter [facility] Date [facility] [address] [id number] [id number] Jun, [facility] [address] [facility] [id number] [id number] May, [facility] [address] [id number][place] [id number] May, [facility] [address] [facility] [address] [facility] [id number] [place] [address] May, BMI 45.0-49.9, adult Z68.42 [facility] [id number] [place] [address] [id number] May, BMI 45.0-49.9, adult Z68.42 ; Lumbago with sciatica, right side M54.41 ; Anxiety F41.9 and Essential (primary) hypertension I10 [facility] [id number] [place] [address] Apr, [facility] [id number] [place] [address] [id number] Apr, Anxiety F41.9 [facility] [place] [id number] [place] [address] [id number] Apr, Anxiety F41.9 [facility] [place] [id number] [place] [address] [id number] Apr, [facility] [address] [id number][place] [phone] Apr, Dental examination Z01.20 [facility] [place] [id number] [place] [address] [id number] Apr, Anxiety F41.9 [facility] [place] [id number] [place] [address] [id number] Apr, Anxiety F41.9 and Lumbago with sciatica, right side M54.41 [facility] [place] [id number] [place] [address] [id number] March, Anxiety F41.9 [facility] [place] [id number] [place] [address] [id number] March, Diverticulitis of large intestine, unspecified bleeding status, unspecified complication status K57.32 ; Anxiety F41.9 and Essential (primary) hypertension I10 [facility] [place] [id number] [place] [address] [id number] March, RUQ abdominal pain R10.11 [facility] [address]00565100[place] [address] Feb, Wheezing on auscultation R06.2 [facility] [address] [id number] [place] [id number] Feb, Anxiety F41.9 [facility] [address] [id number] [place] [id number] Feb, [facility] [address] [id number] [place] [id number] Jan, BMI 50.0-59.9, adult Z68.43 ; Anxiety F41.9 ; Chest pain, unspecified type R07.9 and Essential (primary) hypertension I10 [address] [id number], [place] [id number] Jan, BMI 45.0-49.9, adult Z68.42 ; Morbid obesity E66.01 ; Chest pain, non-cardiac R07.89 ; Anxiety F41.9 ; Essential (primary) hypertension I10 and Tobacco abuse Z72.[address] [id number], [place] [id number] Jan, Essential (primary) hypertension I10 [facility] [address] [id number] [place] [id number] Dec, Essential (primary) hypertension I10 ; Migraine with aura and without status migrainosus, not intractable G43.109 ; Viral syndrome B34.9 and Lumbago with sciatica, right side M54.41 [address] [id number] [id number] Nov, BMI 45.0-49.9, adult Z68.42 ; Migraine with aura and without status migrainosus, not intractable G43.109 and Essential (primary) hypertension I10 [facility] [address] [facility] [id number] [place] [id number] Nov, Essential (primary) hypertension I10 [facility] [address] [id number] [place] [address]0460 Nov, BMI 45.0-49.9, adult Z68.42 ; Essential (primary) hypertension I10 ; Anxiety F41.9 ; Lumbago with sciatica, right side M54.41 and Other chronic pain G89.29 [facility] [id number] [place] [id number] Nov, [facility] [place] [id number] [place] [address] [id number] Aug, RUQ abdominal pain R10.11 [facility] [id number] [place] [id number] Aug, Essential (primary) hypertension I10 and Anxiety F41.9 [facility] [id number] [place] [address] [id number] May, Essential (primary) hypertension I10 and Anxiety F41.9 [facility] [id number] [place] [address] [id number] March, Diverticulitis of large intestine, unspecified bleeding status, unspecified complication status K57.32 [facility] [address]00565100[place] [address] March, [facility] [id number] [place] [address] [id number] March, [facility] [id number] [place] [address] [id number] March, Chest wall pain R07.89 and Dysuria R30.0 [facility] [id number] [place] [address] [id number] March, Anxiety F41.9 [facility] [id number] [place] [id number] Feb, Biliary dyskinesia K82.8 [facility] [id number] [place] [id number] Feb, Biliary dyskinesia K82.8 [facility] [id number] [place] [id number] Jan, Essential (primary) hypertension I10 and RUQ abdominal pain R10.11 [facility] [id number] [place] [id number] Jan, Essential (primary) hypertension I10 and Anxiety F41.9 [facility] [id number] [place] [id number] Dec, Essential (primary) hypertension I10 [facility] [id number] [place] [address] [id number] Nov, Migraine with aura and without status migrainosus, not intractable G43.109 and Essential (primary) hypertension I10 [facility] [place] [id number] [place] [address] [id number] Nov, Anxiety F41.9 ; Migraine with aura and without status migrainosus, not intractable G43.109 and Insomnia, unspecified type G47.00 [facility] [place] [id number] [place] [address] [id number] Oct, Migraine with aura and without status migrainosus, not intractable G43.109 [facility] [place] [id number] [place] [address] [id number] Oct, Anxiety F41.9 and Essential (primary) hypertension I10 [place] [address] [address] Oct, [facility] [address] [address] Sep, [facility] [id number] [place] [address] [id number] Sep, Diverticulitis of large intestine without perforation or abscess without bleeding K57.32 and Anxiety F41.9 [facility] [id number] [place] [address] [id number] Aug, Diverticulitis of large intestine without perforation or abscess without bleeding K57.32 [facility] [address] [address] Aug, [facility] [id number] [place] [address] [id number] Aug, [facility] [address] [address] Aug, [facility] [id number] [place] [address] [id number] Aug, [facility] [id number] [place] [address] [id number] Jul, Ingrown left big toenail L60.0 [id number] [place] [address] [id number] Jul, [address] [id number] Jul, Ingrowing toenail of right foot L60.[address] [id number] Apr, [address] [id number] Apr, RUQ abdominal pain R10.11 ; Fatty liver disease, nonalcoholic K76.0 ; Hx of hyperglycemia Z86.39 ; Elevated alanine aminotransferase (ALT) level R74.0 ; Elevated LDL cholesterol level E78.0 and Prediabetes R73.09 [address] [place] [address] [id number] Apr, RUQ abdominal pain R10.11 ; Mild persistent asthma without complication J45.30 ; Anxiety F41.9 and Essential (primary) hypertension I10 [address] [address] [place] [address] [id number] March, Wheezing R06.2 and Cough R05 [address] [id number] March, [address] [id number] March, [address] [id number] March, Acute severe exacerbation of asthma J45.51 ; Cough R05 and Cough headache G44.[address] [id number] 18 Feb, 2016 Mild intermittent asthma with acute exacerbation J45.21 and Transient insomnia F51.[address] [id number] Feb, Pigmented skin lesion of uncertain nature L81.9 [address] [address] [place] [address] [id number] Feb, Anxiety F41.9 and Essential (primary) hypertension I10 [facility] [id number] [place], [place] [id number] 31 Jan, 2016 [address] [place] [address] [id number] 23 Jan, 2016 Routine gynecological examination Z01.419 and Encounter for Papanicolaou smear for cervical cancer screening Z12.4 [address] [place] [address] [id number] 07 Jan, 2016 Essential (primary) hypertension I10 and Anxiety F41.9 [facility] [place] [id number] [place] [address] [id number] 10 Dec, 2015 Essential (primary) hypertension I10 and Anxiety F41.9 [place] [id number] [place] [address] [id number] Nov, Essential (primary) hypertension I10 [facility] [address] [facility] [id number][place] [id number] Aug, [facility] [address] [place] [address] [id number] Aug, CAP (community acquired pneumonia) J18.9 [facility] [address] [place] [address] [id number] Aug, CAP (community acquired pneumonia) J18.9 [facility] [address] [facility] [id number], [place] [id number] Aug, CAP (community acquired pneumonia) J18.9 [address] [place] [address] [id number] Aug, CAP (community acquired pneumonia) J18.9 and Essential (primary) hypertension I10 [address]00565100[place] [id number] Aug, CAP (community acquired pneumonia) J18.9 [facility] [id number] [place] [address] [id number]- [address], [address] [facility] [id number] [place] [address] [id number]- [address]404 Feb, [facility] [address] [place] [address] Feb, [facility] [address] [id number] [place] [id number] Jan, [facility] [place] [facility] [address] [facility] [facility] [id number] [place] [address]- [address] Jan, [facility] [place] [facility] [address]00565100[facility] [place] [address] Nov, [facility] [address] [facility] [id number] [place] [id number] Nov, [facility] [place] [facility] [address] [facility] [id number] [place] [address]- [address] Nov, [facility] [address] [facility] [id number] [place] [id number] Oct, [facility] [place] [facility] [address]00565100[facility] [place] [place] [address]- [address] Oct, [facility] [address] [facility] [id number] [place] [id number] Sep, [facility] [place] [facility] [address] [id number] [place] [place] [address] Sep, [facility] [address] [facility] [id number] [place] [id number] Jun, [facility] [place] [facility] [address] [id number] [address] Jun, [facility] [address] [facility] [id number] [place] [id number] Jun, [facility] [place] [facility] [address] [facility] [address] [facility] [id number] [address] Jun, [facility] [address] [facility] [id number] [place] [id number] May, [facility] [place] [facility] [address] [facility] [facility] [id number] [place] [address]- [address] May, [facility] [address] [facility] [id number] [place] [id number] Dec, [facility] [place] [facility] [address] [id number] [place] [address]- [address] Dec, [facility] [address] [id number] [place] [id number] Feb, [facility] [address] [id number] [place] [id number] Feb, [facility] [address] [id number] [place] [id number] Feb, [facility] [address] [facility] [facility] [id number] [place] [address] 16 Feb, 2013 [facility] [address] [id number] [place] [id number] Feb, [facility] [address] [id number] [place] [id number] Feb, [facility] [address]00565100[place] [address]- [address] 14 Feb, 2013 [facility] [address]00565100[place] [address]- [address] Feb, [facility] [address] [facility] [address] [facility] [id number] [place] [address] Feb, [facility] [address] [id number] [place] [id number] Feb, [facility] [address] [id number] [place] [id number] Feb, [facility] [address] [id number] [place] [id number] Jan, [facility] [address] [id number] [place] [id number] Nov, [facility] [address] [id number] [place] [id number] Nov, [facility] [place] [facility] [address] [facility] [address] [facility] [id number] [place] [address]- [address] Oct, [facility] [place] [facility] [address]00565100[place] [address] Apr, [facility] [address] [id number] [address] 16 Dec, 2009 [facility] [address] [id number] [address] Nov, [facility] [address]00565100[place] [address] Oct, [facility] [address] [id number] [address] Oct, [facility] [address] [id number] [address] Sep, [facility] [address]00565100[place] [address] Sep, [facility] [address] [id number] [address]- [address] Sep, IMMUNIZATIONS No Known Immunizations SOCIAL HISTORY Never Assessed REASON FOR VISIT ER visit for chest pain Maikol DELGADO PLAN OF CARE Activity Details Follow Up 4 Weeks Reason:anxiety VITAL SIGNS Height 66 in 2018-02-06 Weight 310.4 lbs 2018-02-06 Temperature 98.0 degrees Fahrenheit 2018-02-06 Heart Rate 84 bpm 2018-02-06 Respiratory Rate 18 2018-02-06 BMI 50.09 kg/m2 2018-02-06 Blood pressure systolic 142 mmHg 2018-02-06 Blood pressure diastolic 62 mmHg 2018-02-06 MEDICATIONS Medication Instructions Dosage Frequency Start Date End Date Duration Status Clonazepam 1 MG Orally Twice a day .5-1 tablet 12h Sep, 0 days Active Flonase 50 MCG/DOSE Nasally Once a day 1 spray in each nostril 24h Not-Taking BusPIRone HCl 7.5 MG Orally Twice a day 1 tablet 12h Jan, Active ZyrTEC 10 MG Orally Once a day 1 tablet 24h Not-Taking Atenolol 100 MG Orally Once a day 1 tablet 24h 26 Nov, 2016 Active Singulair 10 MG Orally Once a day 1 tablet in the evening 24h Not- Taking Gabapentin 300 MG Orally Three times a day 1 capsule 1 tab qhs x 5 d then bid x 5 d then tid 8h 10 Nov, 2017 Not-Taking Albuterol Sulfate 90 mcg/actuation Inhalation every 8 hrs 2 puffs by Inhalation route every 4-6 hours as needed PRN cough or wheezing 8h May, Active Amlodipine Besylate 5 MG Orally Once a day 1 tablet 24h Nov, Active Promethazine HCl 25 MG Orally every 12 hrs 1 tablet as needed 12h Nov, Not-Taking Losartan Potassium 100 mg Orally Once a day 1 tablet 24h Nov, Active Nitroglycerin 0.4 MG Active RESULTS No Results PROCEDURES Procedure Date Ordered Result Body Site COMPLETE CBC W/AUTO DIFF WBC February 06, 2018 VENIPUNCT, ROUTINE* February 06, 2018 LIPID PANEL February 06, 2018 COMPREHEN METABOLIC PANEL February 06, 2018 ASSAY OF MAGNESIUM February 06, 2018 ASSAY THYROID STIM HORMONE February 06, 2018 INSTRUCTIONS MEDICATIONS ADMINISTERED No Known Medications [...]
--- OUTSIDE RECORDS SUMMARY | 2018-09-26 11:03 | XMS REPORT ---
Author Author TAVO MILAN Organization [facility] Address [address] [place] [address] Care Team Providers Care Binder Coverstitch Name Role Phone MILAN VO Unavailable PROBLEMS Type Condition ICD9-CM Code KLK40-SD Code Onset Dates Condition Status SNOMED Code Problem Insomnia, unspecified type G47.00 Active 924237430 Problem Biliary dyskinesia K82.8 Active 457646281 Problem Migraine with aura and without status migrainosus, not intractable G43.109 Active 3972949 Problem Tobacco abuse Z72.0 Active 117548744 Problem Morbid obesity E66.01 Active 183691791 Problem Diverticulitis of large intestine, unspecified bleeding status, unspecified complication status K57.32 Active 6824938 Problem RUQ abdominal pain R10.11 Active 966117476 Problem Other chronic pain G89.29 Active 52692049 Problem Lumbago with sciatica, right side M54.41 Active 529113480 Problem Essential (primary) hypertension I10 Active 85868703 Problem Anxiety F41.9 Active 29983131 Problem Elevated LDL cholesterol level E78.0 Active 158333625 Problem CAP (community acquired pneumonia) J18.9 Active 038556905 Problem Diverticulitis of large intestine without perforation or abscess without bleeding K57.32 Active 2112318 ALLERGIES Substance Reaction Event Type Date Status Lisinopril cough Drug Allergy Jan, Active ENCOUNTERS Encounter Location Date Diagnosis [facility] [address] [id number] [place] [id number] Jun, [facility] [address] [facility] [id number] [place] [id number] May, [facility] [address] [id number] [place] [id number] May, [facility] [address] [facility] [id number] [place] [address] May, BMI 45.0-49.9, adult Z68.42 [facility] [id number] [place] [address] [id number] May, BMI 45.0-49.9, adult Z68.42 ; Lumbago with sciatica, right side M54.41 ; Anxiety F41.9 and Essential (primary) hypertension I10 [facility] [id number] [place] [address] Apr, [facility] [id number] [place] [address] [id number] Apr, Anxiety F41.9 [facility] [id number] [place] [address] [id number] Apr, Anxiety F41.9 [facility] [id number] [place] [address] [id number] Apr, [facility] [address] [id number] [phone] Apr, Dental examination Z01.20 [facility] [id number] [place] [address] [id number] Apr, Anxiety F41.9 [facility] [id number] [place] [address] [id number] Apr, Anxiety F41.9 and Lumbago with sciatica, right side M54.41 [facility] [id number] [place] [address] [id number] March, Anxiety F41.9 [facility] [id number] [place] [address] [id number] March, Diverticulitis of large intestine, unspecified bleeding status, unspecified complication status K57.32 ; Anxiety F41.9 and Essential (primary) hypertension I10 [facility] [id number] [place] [address] [id number] March, RUQ abdominal pain R10.11 [facility] [address] [address] Feb, Wheezing on auscultation R06.2 [facility] [address] [facility] [id number] [place] [id number] Feb, Anxiety F41.9 [facility] [id number] [place] [address] [id number] Feb, [facility] [id number] [place] [id number] Jan, BMI 50.0-59.9, adult Z68.43 ; Anxiety F41.9 ; Chest pain, unspecified type R07.9 and Essential (primary) hypertension I10 [address] [id number][place] [id number] Jan, BMI 45.0-49.9, adult Z68.42 ; Morbid obesity E66.01 ; Chest pain, non-cardiac R07.89 ; Anxiety F41.9 ; Essential (primary) hypertension I10 and Tobacco abuse Z72.[address] [id number] [phone] Jan, Essential (primary) hypertension I10 [facility] [address] [facility] [id number] [place] [id number] Dec, Essential (primary) hypertension I10 ; Migraine with aura and without status migrainosus, not intractable G43.109 ; Viral syndrome B34.9 and Lumbago with sciatica, right side M54.41 [facility] [address] [facility] [id number] [place] [id number] Nov, BMI 45.0-49.9, adult Z68.42 ; Migraine with aura and without status migrainosus, not intractable G43.109 and Essential (primary) hypertension I10 [facility] [address] [facility] [id number] [place] [id number] Nov, Essential (primary) hypertension I10 [facility] [id number] [place] [id number] Nov, BMI 45.0-49.9, adult Z68.42 ; Essential (primary) hypertension I10 ; Anxiety F41.9 ; Lumbago with sciatica, right side M54.41 and Other chronic pain G89.29 [facility] [id number] [place] [address] [id number] Nov, [facility] [address] [id number] Aug, RUQ abdominal pain R10.11 [facility] [id number] [place] [address] [id number] Aug, Essential (primary) hypertension I10 and Anxiety F41.9 [facility] [id number] [place] [address] [id number] May, Essential (primary) hypertension I10 and Anxiety F41.9 [facility] [id number] [place] [address] [id number] March, Diverticulitis of large intestine, unspecified bleeding status, unspecified complication status K57.32 [facility] [address] [id number] [address] March, [facility] [id number] [place] [address] [id number] March, [facility] [id number] [place] [address] [id number] March, Chest wall pain R07.89 and Dysuria R30.0 [facility] [id number] [place] [address] [id number] March, Anxiety F41.9 [facility] [id number] [place] [address] [id number] Feb, Biliary dyskinesia K82.8 [facility] [id number] [place] [address] [id number] Feb, Biliary dyskinesia K82.8 [facility] [id number] [place] [address] [id number] Jan, Essential (primary) hypertension I10 and RUQ abdominal pain R10.11 [facility] [id number] [place] [address] [id number] Jan, Essential (primary) hypertension I10 and Anxiety F41.9 [facility] [id number] [place] [address] [id number] Dec, Essential (primary) hypertension I10 [facility] [id number] [place] [address], [place] [id number] Nov, Migraine with aura and without status migrainosus, not intractable G43.109 and Essential (primary) hypertension I10 [facility] [id number] [place] [address], [place] [id number] Nov, Anxiety F41.9 ; Migraine with aura and without status migrainosus, not intractable G43.109 and Insomnia, unspecified type G47.00 [facility] [id number] [place] [address] [id number] Oct, Migraine with aura and without status migrainosus, not intractable G43.109 [facility] [id number] [place] [address], [place] [id number] Oct, Anxiety F41.9 and Essential (primary) hypertension I10 [facility] [address] [address] Oct, [facility] [address] [address] Sep, [facility] [id number] [place] [address] [id number] Sep, Diverticulitis of large intestine without perforation or abscess without bleeding K57.32 and Anxiety F41.9 [facility] [id number] [place] [address] [id number] Aug, Diverticulitis of large intestine without perforation or abscess without bleeding K57.32 [facility] [id number] [place] [address] Aug, [facility] [id number] [place] [address] [id number] Aug, [facility] [address] [address] Aug, [facility] [id number] [place] [address] [id number] Aug, [facility] [address] [id number] Jul, Ingrown left big toenail L60.0 [id number] [place] [address] [id number] Jul, [address] [id number] Jul, Ingrowing toenail of right foot L60.0 [id number] [place] [address] [id number] Apr, [address] [id number] Apr, RUQ abdominal pain R10.11 ; Fatty liver disease, nonalcoholic K76.0 ; Hx of hyperglycemia Z86.39 ; Elevated alanine aminotransferase (ALT) level R74.0 ; Elevated LDL cholesterol level E78.0 and Prediabetes R73.09 [id number] [place] [address] [id number] Apr, RUQ abdominal pain R10.11 ; Mild persistent asthma without complication J45.30 ; Anxiety F41.9 and Essential (primary) hypertension I10 [id number] [place] [address] [id number] March, Wheezing R06.2 and Cough R05 [address] [id number] March, [id number] [place] [address] [id number] March, [address] [id number] March, Acute severe exacerbation of asthma J45.51 ; Cough R05 and Cough headache G44.83 [id number] [place] [address] [id number] Feb, Mild intermittent asthma with acute exacerbation J45.21 and Transient insomnia F51.[address] [id number] Feb, Pigmented skin lesion of uncertain nature L81.9 [id number] [place] [address] [id number] Feb, Anxiety F41.9 and Essential (primary) hypertension I10 [address] [id number] Jan, [id number] [place] [address] [id number] Jan, Routine gynecological examination Z01.419 and Encounter for Papanicolaou smear for cervical cancer screening Z12.4 [id number] [place] [address] [id number] Jan, Essential (primary) hypertension I10 and Anxiety F41.[address] [place] [address] [id number] Dec, Essential (primary) hypertension I10 and Anxiety F41.[address] [place] [address] [id number] Nov, Essential (primary) hypertension I10 [facility] [address] [id number] [id number] Aug, [address] [place] [address] [id number] Aug, CAP (community acquired pneumonia) J18.[address] [place] [address] [id number] Aug, CAP (community acquired pneumonia) J18.9 [facility] [address] [id number][place] [id number] Aug, CAP (community acquired pneumonia) J18.9 [address] [place] [address] [id number] Aug, CAP (community acquired pneumonia) J18.9 and Essential (primary) hypertension I10 [address] [place] [address] [id number] Aug, CAP (community acquired pneumonia) J18.9 [facility] [address] [address] 08 Apr, 2015 [facility] [id number] [place] [address] [id number]- [address] Feb, [facility] [place] [facility] [address] [id number] [place] [address] Feb, [facility] [address] [facility] [id number] [place] [id number] Jan, [facility] [place] [facility] [address] [facility] [id number] [place] [address]- [address] Jan, [facility] [place] [facility] [address] [facility] [id number] [place] [address] Nov, [facility] [address] [facility] [id number] [place] [id number] Nov, [facility] [place] [facility] [address] [facility] [id number] [place] [address]- [address] Nov, [facility] [address] [facility] [id number] [place] [id number] Oct, [facility] [place] [facility] [address] [facility] [id number] [place] [address] Oct, [facility] [address] [facility] [id number] [place] [id number] Sep, [facility] [place] [facility] [address] [facility] [id number] [place] [address] Sep, [facility] [address] [id number] [place] [id number] Jun, [facility] [place] [facility] [address] [facility] [id number] [place] [address] Jun, [facility] [address] [facility] [id number] [place] [id number] Jun, [facility] [place] [facility] [address] [facility] [id number] [place] [address] Jun, [facility] [address] [facility] [id number] [place] [id number] May, [facility] [place] [facility] [address] [facility] [id number] [place] [address] May, [facility] [address] [facility] [id number] [place] [id number] Dec, [facility] [address] [id number] [place] [address]- [address] Dec, [facility] [address] [id number] [place] [id number] Feb, [facility] [address] [id number] [place] [id number] Feb, [facility] [address] [id number] [place] [id number] 17 Feb, 2013 [facility] [address] [facility] [id number] [place] [address]- [address] 16 Feb, 2013 [facility] [address] [id number] [place] [id number] 15 Feb, 2013 [facility] [address] [id number] [place] [id number] 15 Feb, 2013 [facility] [address] [address] 14 Feb, 2013 [facility] [address] [id number] [address] Feb, [facility] [address] [facility] [id number] [place] [address] Feb, [facility] [address] [id number] [place] [id number] Feb, [facility] [address] [id number] [place] [id number] Feb, [facility] [address] [id number] [place] [id number] Jan, [facility] [address] [id number] [place] [id number] Nov, [facility] [address] [id number] [place] [id number] Nov, [facility] [place] [facility] [address] [facility] [id number] [place] [address] Oct, [facility] [address] [address] Apr, [facility] [address] [facility] [id number] [place] [address] Dec, [facility] [address] [address] Nov, [facility] [address] [address] Oct, [facility] [id number] [address] Oct, [facility] [id number] [address] Sep, [facility] [id number] Sep, [facility] [id number] [address] Sep, IMMUNIZATIONS No Known Immunizations SOCIAL HISTORY Never Assessed REASON FOR VISIT chest pain f/u Melony barcenas- Pt was in [facility] on 01/27/18, pt left AMA, pt voices she was told she had heart spasms. Virgil ARROYO PLAN OF CARE Activity Details Follow Up prn Reason: VITAL SIGNS Height 66 in 2018-01-30 Weight 308.6 lbs 2018-01-30 Temperature 98.6 degrees Fahrenheit 2018-01-30 Heart Rate 97 bpm 2018-01-30 Respiratory Rate 18 2018-01-30 BMI 49.80 kg/m2 2018-01-30 Blood pressure systolic 154 mmHg 2018-01-30 Blood pressure diastolic 88 mmHg 2018-01-30 MEDICATIONS Medication Instructions Dosage Frequency Start Date End Date Duration Status ZyrTEC 10 MG Orally Once a day 1 tablet 24h Not-Taking Singulair 10 MG Orally Once a day 1 tablet in the evening 24h Not- Taking Flonase 50 MCG/DOSE Nasally Once a day 1 spray in each nostril 24h Not-Taking Gabapentin 300 MG Orally Three times a day 1 capsule 1 tab qhs x 5 d then bid x 5 d then tid 8h 10 Nov, 2017 Not-Taking Albuterol Sulfate 90 mcg/actuation Inhalation every 8 hrs 2 puffs by Inhalation route every 4-6 hours as needed PRN cough or wheezing 8h 29 May, 2014 Active Atenolol 100 MG Orally Once a day 1 tablet 24h Nov, Active Promethazine HCl 25 MG Orally every 12 hrs 1 tablet as needed 12h Nov, Not-Taking Clonazepam 1 MG Orally Twice a day .5-1 tablet 12h 08 Sep, 2016 0 days Active Losartan Potassium 100 mg Orally [...] apnea Surgical History cholecystectomy 03/24/17 Hospitalization History Diverticulitis-[facility] 08/2016 Hospitalization History Generalized anxiety disorder-[facility] 09/2016 Hospitalization History Diverticulitis-[facility]. Left AMA 04/06/17 Hospitalization History ER visit for migraine 08/2017 Hospitalization History ER visit for chest pain 01/2018
--- OUTSIDE RECORDS SUMMARY | 2018-09-26 11:03 | XMS REPORT ---
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 Name Role Phone NUZHAT FRANKS Unavailable PROBLEMS Type Condition ICD9-CM Code EHQ97-DZ Code Onset Dates Condition Status SNOMED Code Problem Insomnia, unspecified type G47.00 Active 450572162 Problem Biliary dyskinesia K82.8 Active 931186255 Problem Migraine with aura and without status migrainosus, not intractable G43.109 Active 8018133 Problem Tobacco abuse Z72.0 Active 596137961 Problem Morbid obesity E66.01 Active 257126724 Problem Diverticulitis of large intestine, unspecified bleeding status, unspecified complication status K57.32 Active 0074836 Problem RUQ abdominal pain R10.11 Active 507151512 Problem Other chronic pain G89.29 Active 12882895 Problem Lumbago with sciatica, right side M54.41 Active 211957464 Problem Essential (primary) hypertension I10 Active 62414785 Problem Anxiety F41.9 Active 49257968 Problem Elevated LDL cholesterol level E78.0 Active 449724053 Problem CAP (community acquired pneumonia) J18.9 Active 491751957 Problem Diverticulitis of large intestine without perforation or abscess without bleeding K57.32 Active 4874013 ALLERGIES No Information ENCOUNTERS Encounter Location Date Diagnosis [facility] [address] [id number] [place] [id number] Jun, [facility] [address] [id number][place] [id number] May, [facility] [address] [facility] [id number], [place] [id number] May, [facility] [address] [facility] [id number], [place] [id number] Apr, [facility] [address] [id number], [place] [id number] Apr, [facility] examination Z01.20 [facility] [id number] [place] [address] [id number] Apr, Anxiety F41.9 [facility] [id number] [place] [address] [id number] Apr, Anxiety F41.9 and Lumbago with sciatica, right side M54.41 [facility] [id number] [place] [address] [id number] March, Anxiety F41.9 [facility] [id number] [place] [address] [id number] March, Diverticulitis of large intestine, unspecified bleeding status, unspecified complication status K57.32 ; Anxiety F41.9 and Essential (primary) hypertension I10 [facility] [address] [place] [address] [id number] March, RUQ abdominal pain R10.11 [facility] [address]00565[address], [place] [address] Feb, Wheezing on auscultation R06.2 [place] [id number] [place] [address] [id number] Feb, Anxiety F41.9 [place] [id number] [place] [address] [id number] Feb, [facility] [id number] [place] [address] [id number] Jan, BMI 50.0-59.9, adult Z68.43 ; Anxiety F41.9 ; Chest pain, unspecified type R07.9 and Essential (primary) hypertension I10 [facility] [address] [id number][place] [id number] Jan, BMI 45.0-49.9, adult Z68.42 ; Morbid obesity E66.01 ; Chest pain, non-cardiac R07.89 ; Anxiety F41.9 ; Essential (primary) hypertension I10 and Tobacco abuse Z72.0 [facility] [address] [facility] [id number][place] [id number] Jan, Essential (primary) hypertension I10 [facility] [id number] [place] [address] [id number] Dec, Essential (primary) hypertension I10 ; Migraine with aura and without status migrainosus, not intractable G43.109 ; Viral syndrome B34.9 and Lumbago with sciatica, right side M54.41 [facility] [id number] [place] [address] [id number] Nov, BMI 45.0-49.9, adult Z68.42 ; Migraine with aura and without status migrainosus, not intractable G43.109 and Essential (primary) hypertension I10 [facility] [id number] [place] [address] [id number] Nov, Essential (primary) hypertension I10 [facility] [id number] [place] [address] [id number] Nov, BMI 45.0-49.9, adult Z68.42 ; Essential (primary) hypertension I10 ; Anxiety F41.9 ; Lumbago with sciatica, right side M54.41 and Other chronic pain G89.29 [facility] [id number] [place] [address] [id number] Nov, [facility] [id number] [place] [address] [id number] Aug, RUQ abdominal pain R10.11 [facility] [id number] [place] [address] [id number] Aug, Essential (primary) hypertension I10 and Anxiety F41.9 [facility] [id number] [place] [address] [id number] May, Essential (primary) hypertension I10 and Anxiety F41.9 [place] [id number] [place] [address] [id number] March, Diverticulitis of large intestine, unspecified bleeding status, unspecified complication status K57.32 [facility] [address] [address] March, [facility] [id number] [place] [address] [id number] March, [facility] [id number] [place] [address] [id number] March, Chest wall pain R07.89 and Dysuria R30.0 [facility] [id number] [place] [address] [id number] March, Anxiety F41.9 [facility] [id number] [place] [address] [id number] Feb, Biliary dyskinesia K82.8 [facility] [id number] [place] [address] [id number] Feb, Biliary dyskinesia K82.8 [facility] [id number] [place] [address] [id number] Jan, Essential (primary) hypertension I10 and RUQ abdominal pain R10.11 [facility] [id number] [place] [address] [id number] Jan, Essential (primary) hypertension I10 and Anxiety F41.9 [facility] [id number] [place] [address] [id number] Dec, Essential (primary) hypertension I10 [facility] [id number] [place] [address] [id number] Nov, Migraine with aura and without status migrainosus, not intractable G43.109 and Essential (primary) hypertension I10 [facility] [id number] [place] [address] [id number] Nov, Anxiety F41.9 ; Migraine with aura and without status migrainosus, not intractable G43.109 and Insomnia, unspecified type G47.00 [facility] [place] [id number] [place] [address] [id number] Oct, Migraine with aura and without status migrainosus, not intractable G43.109 [facility] [id number] [place] [address] [id number] Oct, Anxiety F41.9 and Essential (primary) hypertension I10 [facility] [id number] [place] [address] [id number] 58[address] Oct, [facility] [address] [place] [address]- [address] Sep, [facility] [id number] [place] [address] [id number] Sep, Diverticulitis of large intestine without perforation or abscess without bleeding K57.32 and Anxiety F41.9 [facility] [id number] [place] [address] [id number] Aug, Diverticulitis of large intestine without perforation or abscess without bleeding K57.32 [facility] [id number] [place] [address] 96976- 2546 Aug, [facility] [id number] [place] [address] [id number] Aug, [facility] [address] [place] [address] 19833- 2546 Aug, [facility] [id number] [place] [address] [id number] Aug, [facility] [id number] [place] [address] [id number] Jul, Ingrown left big toenail L60.0 [facility] [id number] [place] [address] [id number] Jul, [facility] [id number] [place] [address] [id number] Jul, Ingrowing toenail of right foot L60.0 [facility] [id number] [place] [address] [id number] Apr, [facility] [id number] [place] [address] [id number] Apr, RUQ abdominal pain R10.11 ; Fatty liver disease, nonalcoholic K76.0 ; Hx of hyperglycemia Z86.39 ; Elevated alanine aminotransferase (ALT) level R74.0 ; Elevated LDL cholesterol level E78.0 and Prediabetes R73.09 [facility] [id number] [place] [address] [id number] Apr, 2016 RUQ abdominal pain R10.11 ; Mild persistent asthma without complication J45.30 ; Anxiety F41.9 and Essential (primary) hypertension I10 [address] [place] [address] [id number] March, Wheezing R06.2 and Cough R05 [place] [id number] [place] [address] [id number] March, [place] [id number] [place] [address] [id number] March, [place] [id number] [place] [address] [id number] March, Acute severe exacerbation of asthma J45.51 ; Cough R05 and Cough headache G44.[address] [id number] Feb, 2016 Mild intermittent asthma with acute exacerbation J45.21 and Transient insomnia F51.02 [address] [address] [place] [address] [id number] Feb, Pigmented skin lesion of uncertain nature L81.9 [place] [address] [place] [address] [id number] Feb, Anxiety F41.9 and Essential (primary) hypertension I10 [address] [place] [address] [id number] Jan, [place] [address] [place] [address] [id number] Jan, Routine gynecological examination Z01.419 and Encounter for Papanicolaou smear for cervical cancer screening Z12.[address] [place] [address] [id number] Jan, Essential (primary) hypertension I10 and Anxiety F41.[address] [place] [address] [id number] Dec, Essential (primary) hypertension I10 and Anxiety F41.[address] [place] [address] [id number] Nov, Essential (primary) hypertension I10 [address] [id number] [id number] Aug, [place] [id number], [place] [id number] Aug, CAP (community acquired pneumonia) J18.9 [facility] [id number], [place] [id number] Aug, CAP (community acquired pneumonia) J18.9 [facility] [address] [id number], [place] [id number] Aug, CAP (community acquired pneumonia) J18.9 [facility] [id number], [place] [id number] Aug, CAP (community acquired pneumonia) J18.9 and Essential (primary) hypertension I10 [facility] [address] [place] [address] [id number] Aug, CAP (community acquired pneumonia) J18.9 [facility] [address] [place] [address] 43963- 2546 Apr, [facility] [id number] [place] [address] 58306- 2546 Feb, [facility] [id number] [place] [address] 07191- 2546 Feb, [facility] [id number], [place] [id number] Jan, [facility] [id number] [place] [address] 29760- 2546 Jan, [facility] [address] [place] [address] 10994- 2546 Nov, [facility] [address] [facility] [id number][place] [id number] Nov, [facility] [id number] [place] [address] 73702- 2546 Nov, [facility] [id number], [place] [id number] Oct, [facility] [address] [place] [address] 09132- 254 Oct, [facility] [address] [id number] [place] [id number] Sep, [facility] [address] [facility] [id number], [place] [address]- [address] Sep, [facility] [address] [facility] [id number] [place] [id number] Jun, [facility] [address]65[address], [place] [address] Jun, [facility] [address] [facility] [id number] [place] [id number] Jun, [facility] [address] [facility] [id number], [place] [address] Jun, [facility] [address] [facility] [id number] [place] [id number] May, [facility] [address]65[address], [place] [address] May, [facility] [address] [id number], [place] [id number] Dec, [facility] [address], [place] [address] 5[address] Dec, [facility] [address] [id number], [place] [id number] Feb, [facility] [address] [facility] [id number], [place] [id number] Feb, [facility] [address] [facility] [id number], [place] [id number] Feb, [facility] [address] [facility] [id number], [place] [address] 16 Feb, 2013 [facility] [address] [facility] [id number] [place] [id number] 15 Feb, 2013 [facility] [address] [facility] [id number], [place] [id number] Feb, [facility] [address] [id number], [place] [address]- [address] 14 Feb, 2013 [facility] [address] [facility] [id number], [place] [address]- 2546 Feb, [facility] [address] [facility] [id number], [place] [address]- 2546 Feb, [facility] [address] [id number] [place] [id number] Feb, [facility] [address] [id number] [place] [id number] Feb, [facility] [address] [id number] [place] [id number] Jan, [facility] [address] [id number] [place] [id number] Nov, [facility] [address] [facility] [id number] [place] [id number] Nov, [facility] [address]00565100[place], [place] [address]- 3[address] Oct, [facility] [address]65100[place], [place] [address]- 0831 Apr, [facility] [address]00565100[place], [place] [address]- 90[address] Dec, [facility] [address]00565100[place], [place] [address]- 9497 Nov, [facility] [address]00565100[place], [place] [address]- 1582 Oct, [facility] [address]00565100[place], [place] [address]- 8381 Oct, [facility] [address]65100[place], [place] [address]- 7142 Sep, [facility] [address]65100[place], [place] [address]- 4[address] Sep, [facility] [address] [id number], [place] [address]- 2894 Sep, IMMUNIZATIONS No Known Immunizations SOCIAL HISTORY Never Assessed REASON FOR VISIT Blood pressure PLAN OF CARE VITAL SIGNS MEDICATIONS Medication Instructions Dosage Frequency Start Date End Date Duration Status Losartan Potassium 100 MG Orally Once a day 1 [...] apnea Surgical History cholecystectomy 03/24/17 Hospitalization History Diverticulitis-[facility] 08/2016 Hospitalization History Generalized anxiety disorder-[facility] 09/2016 Hospitalization History Diverticulitis-[facility]. Left AMA 04/06/17 Hospitalization History ER visit for migraine 08/2017 Hospitalization History ER visit for chest pain 01/2018
--- OUTSIDE RECORDS SUMMARY | 2018-09-26 11:03 | XMS REPORT ---
Author Author NUZHAT FRANKS Organization [facility] Address [address] [place] [address] Care Team Providers Care Air Support Control Officer Name Role Phone NUZHAT FRANKS Unavailable PROBLEMS Type Condition ICD9-CM Code HIU03-EX Code Onset Dates Condition Status SNOMED Code Problem Insomnia, unspecified type G47.00 Active 289092303 Problem Biliary dyskinesia K82.8 Active 801101495 Problem Migraine with aura and without status migrainosus, not intractable G43.109 Active 3919264 Problem Tobacco abuse Z72.0 Active 872776385 Problem Morbid obesity E66.01 Active 502613250 Problem Diverticulitis of large intestine, unspecified bleeding status, unspecified complication status K57.32 Active 6764377 Problem RUQ abdominal pain R10.11 Active 027283490 Problem Other chronic pain G89.29 Active 71203689 Problem Lumbago with sciatica, right side M54.41 Active 192185898 Problem Essential (primary) hypertension I10 Active 08976978 Problem Anxiety F41.9 Active 47619040 Problem Elevated LDL cholesterol level E78.0 Active 892836953 Problem CAP (community acquired pneumonia) J18.9 Active 734502341 Problem Diverticulitis of large intestine without perforation or abscess without bleeding K57.32 Active 9520334 ALLERGIES Substance Reaction Event Type Date Status Ultram hives Drug Allergy Aug, Active Lisinopril cough Drug Allergy Aug, Active ENCOUNTERS Encounter Location Date Diagnosis [facility] [address] [facility] [id number] [id number] Apr, [facility] [address] [id number] [id number] March, [facility] [address] [facility] [id number] SPRINGS[place] [id number] March, Anxiety F41.9 [facility] [address] [facility] [id number] [place] [id number] March, Diverticulitis of large intestine, unspecified bleeding status, unspecified complication status K57.32 ; Anxiety F41.9 and Essential (primary) hypertension I10 [facility] [id number] [place]INGS[place] [id number] March, RUQ abdominal pain R10.[address] [address] [id number] Feb, Wheezing on auscultation R06.2 [facility] [id number] [place] [address] [id number] Feb, Anxiety F41.9 [facility] [id number] [place] [address] [id number] Feb, [facility] [address] [place] [address] [id number] Jan, BMI 50.0-59.9, adult Z68.43 ; Anxiety F41.9 ; Chest pain, unspecified type R07.9 and Essential (primary) hypertension I10 [address] [id number][place] [id number] Jan, BMI 45.0-49.9, adult Z68.42 ; Morbid obesity E66.01 ; Chest pain, non-cardiac R07.89 ; Anxiety F41.9 ; Essential (primary) hypertension I10 and Tobacco abuse Z72.[address] [id number], [place] [id number] Jan, Essential (primary) hypertension I10 [facility] [address] [id number] [place] [id number] Dec, Essential (primary) hypertension I10 ; Migraine with aura and without status migrainosus, not intractable G43.109 ; Viral syndrome B34.9 and Lumbago with sciatica, right side M54.41 [facility] [address] [facility] [id number] SPRINGS[place] [id number] Nov, BMI 45.0-49.9, adult Z68.42 ; Migraine with aura and without status migrainosus, not intractable G43.109 and Essential (primary) hypertension I10 [facility] [id number] [place] [address] [id number] Nov, Essential (primary) hypertension I10 [facility] [id number] [place] [address] [id number] Nov, BMI 45.0-49.9, adult Z68.42 ; Essential (primary) hypertension I10 ; Anxiety F41.9 ; Lumbago with sciatica, right side M54.41 and Other chronic pain G89.[address] [address] [facility] [place] [id number] [place] [address] [id number] Nov, [facility] [place] [id number] [place] [address] [id number] Aug, RUQ abdominal pain R10.[address] [facility] [place] [id number] [place] [address] [id number] Aug, Essential (primary) hypertension I10 and Anxiety F41.9 [facility] [id number] [place] [address] [id number] May, Essential (primary) hypertension I10 and Anxiety F41.9 [facility] [id number] [place] [address] [id number] March, Diverticulitis of large intestine, unspecified bleeding status, unspecified complication status K57.32 [facility] [address]100[place] [address] March, [facility] [id number] [place] [address] [id number] March, [facility] [id number] [place] [address] [id number] March, Chest wall pain R07.89 and Dysuria R30.0 [facility] [id number] [place] [address] [id number] March, Anxiety F41.9 [facility] [id number] [place] [address] [id number] Feb, Biliary dyskinesia K82.8 [facility] [id number] [place] [address] [id number] Feb, Biliary dyskinesia K82.[address] [address] [place] [id number] [place] [address] [id number] Jan, Essential (primary) hypertension I10 and RUQ abdominal pain R10.11 [facility] [place] [id number] [place] [address] [id number] Jan, Essential (primary) hypertension I10 and Anxiety F41.[address] [address] [place] [id number] [place] [address] [id number] Dec, Essential (primary) hypertension I[address] [facility] [place] [id number] [place] [address] [id number] Nov, Migraine with aura and without status migrainosus, not intractable G43.109 and Essential (primary) hypertension I[address] [facility] [place] [id number] [place] [address] [id number] Nov, Anxiety F41.9 ; Migraine with aura and without status migrainosus, not intractable G43.109 and Insomnia, unspecified type G47.00 [facility] [id number] [place] [address] [id number] Oct, Migraine with aura and without status migrainosus, not intractable G43.[address] [facility] [place] [id number] [place] [address] [id number] Oct, Anxiety F41.9 and Essential (primary) hypertension I10 [facility] [id number] [place] [address] Oct, [facility] [id number] [place] [address] Sep, [facility] [id number] [place] [address] [id number] Sep, Diverticulitis of large intestine without perforation or abscess without bleeding K57.32 and Anxiety F41.9 [facility] [id number] [place] [address] [id number] Aug, Diverticulitis of large intestine without perforation or abscess without bleeding K57.32 [facility] [address] [address] Aug, [facility] [address] [id number] [place] [id number] Aug, [facility] [address]100[place], [place] [address] Aug, [facility] [address] [id number] [place] [id number] Aug, [facility] [id number] SPRINGS, [place] [id number] Jul, Ingrown left big toenail L60.0 [facility] [id number] [place] [id number] Jul, [facility] [id number] [place] [id number] Jul, Ingrowing toenail of right foot L60.0 [facility] [id number] [place] [id number] Apr, [facility] [id number] SPRINGS, [place] [id number] Apr, RUQ abdominal pain R10.11 ; Fatty liver disease, nonalcoholic K76.0 ; Hx of hyperglycemia Z86.39 ; Elevated alanine aminotransferase (ALT) level R74.0 ; Elevated LDL cholesterol level E78.0 and Prediabetes R73.09 [facility] [id number] SPRINGS, [place] [id number] Apr, RUQ abdominal pain R10.11 ; Mild persistent asthma without complication J45.30 ; Anxiety F41.9 and Essential (primary) hypertension I10 [facility] [id number] [place]INGS[place] [id number] March, Wheezing R06.2 and Cough R05 [facility] [id number] [place] [id number] March, [facility] [id number] [place], [place] [id number] March, [facility] [id number] [place], [place] [id number] March, Acute severe exacerbation of asthma J45.51 ; Cough R05 and Cough headache G44.83 [address] [place] [address] [id number] 18 Feb, 2016 Mild intermittent asthma with acute exacerbation J45.21 and Transient insomnia F51.02 [id number] [place] [address] [id number] Feb, Pigmented skin lesion of uncertain nature L81.9 [id number] [place] [address] [id number] Feb, Anxiety F41.9 and Essential (primary) hypertension I10 [id number] [place] [address] [id number] Jan, [address] [id number] Jan, Routine gynecological examination Z01.419 and Encounter for Papanicolaou smear for cervical cancer screening Z12.4 [id number] [place] [address] [id number] Jan, Essential (primary) hypertension I10 and Anxiety F41.9 [id number] [place] [address] [id number] Dec, Essential (primary) hypertension I10 and Anxiety F41.9 [id number] [place] [address] [id number] Nov, Essential (primary) hypertension I10 [facility] [address] [facility] [address] [id number] [id number] Aug, [address] [place] [address] [id number] Aug, CAP (community acquired pneumonia) J18.9 [address] [place] [address] [id number] Aug, CAP (community acquired pneumonia) J18.9 [facility] [id number] [place] [address] [id number] Aug, CAP (community acquired pneumonia) J18.9 [address] [place] [address] [id number] Aug, CAP (community acquired pneumonia) J18.9 and Essential (primary) hypertension I10 [facility] [id number] [place]INGS[place] [id number] Aug, CAP (community acquired pneumonia) J18.9 [facility] [place] [facility] [address], [place] [address] Apr, [facility] [address]100[place], [place] [address] Feb, [facility] [place] [facility] [id number] [place] [address]- 1720 Feb, [facility] [id number] [place] [address] [id number] Jan, [facility] [place] [facility] [id number] [place] [address] 25370- 2402 Jan, [facility] [id number] [place] [address] 15379- 4201 Nov, [facility] [id number] [place]INGS[place] [id number] Nov, [facility] [address], [place] [address]- 9[address] Nov, [facility] [id number] [place] [address] [id number] Oct, [facility] [place] [facility] [address], [place] [address] 2546 Oct, [facility] [id number] [place] [id number] Sep, [facility] [place] [facility] [address] [id number] [address]- [address] Sep, [facility] [id number] [place]INGS[place] [id number] Jun, [facility] [place] [facility] [address], [place] [address]- [address] Jun, [facility] [id number] [place]INGS[place] [id number] Jun, [facility] [place] [facility] [address] [id number], [place] [address] Jun, [facility] [address] [id number] [place] [id number] May, [facility] [place] [facility] [address] [facility] [id number], [place] 61431331- [address] May, [facility] [address] [id number] [place] [id number] Dec, [facility] [address] [facility] [id number] [place] [address]- [address] Dec, [facility] [address] [id number] [place] [id number] Feb, [facility] [address] [id number] [place] [id number] Feb, [facility] [address] [id number] [place] [id number] Feb, [facility] [address] [facility] [id number], [place] 50403617- [address] 16 Feb, 2013 [facility] [address] [id number] [place] [id number] Feb, [facility] [address] [id number] [place] [id number] Feb, [facility] [place] [facility] [address] [facility] [id number][place] [address]- 2[address] 14 Feb, 2013 [facility] [address] [facility] [id number], [place] [address]- 3[address] Feb, [facility] [place] [facility] [address] [facility] [id number], [place] 41664610- 8105 Feb, [facility] [address] [id number] [place] [id number] Feb, [facility] [address] [id number] [place] [id number] Feb, [facility] [address] [id number] [place] [id number] Jan, [facility] [address] [id number] [place] [id number] Nov, [facility] [address] [id number] [place] [id number] Nov, [facility] [address]100[place], [place] [address]- [address] Oct, [facility] [address]100[place], [place] [address]- 9[address] Apr, [facility] [address]100[place], [place] [address]- 6[address] Dec, [facility] [address]100[place], [place] [address]- 8[address] Nov, [facility] [address] [address]- [address] Oct, [facility] [address] [address]- [address] Oct, [facility] [address] [address]- 3[address] Sep, [facility] [address], [place] [address]- 8[address] Sep, [facility] [address] [id number], [place] [address]- [address] Sep, IMMUNIZATIONS No Known Immunizations SOCIAL HISTORY Never Assessed REASON FOR VISIT having lower right stomach pain x 4 days, thinks her diverticulitis is flaring up. lynne Floers PLAN OF CARE Activity Details Follow Up as schd Reason: VITAL SIGNS Height 66 in 2017-09-06 Weight 309 lbs 2017-09-06 Temperature 98.2 degrees Fahrenheit 2017-09-06 Heart Rate 92 bpm 2017-09-06 Respiratory Rate 20 2017-09-06 BMI 49.87 kg/m2 2017-09-06 Blood pressure systolic 128 mmHg 2017-09-06 Blood pressure diastolic 70 mmHg 2017-09-06 MEDICATIONS Medication Instructions Dosage Frequency Start Date End Date Duration Status Metronidazole 500 mg Orally Twice a day 1 tablet 12Aug, Aug, 07 days Active Protonix 40 MG Orally Once a day 1 tablet 24h Active Carafate 1 GM Orally Twice a day 1 tablet on an empty stomach 12h Active Cipro 500 mg Orally Twice a day 1 tablet 12h Aug, Aug, 07 days Active Hydrochlorothiazide 25 MG Orally Once a day 1 tablet in the morning 24h Jan, 0 days Active Singulair 10 MG Orally Once a day 1 tablet in the evening 24h Active ZyrTEC 10 MG Orally Once a day 1 tablet 24h Active Albuterol Sulfate 90 mcg/actuation Inhalation every 8 hrs 2 puffs by Inhalation route every 4-6 hours as needed PRN cough or wheezing 8h May, Active Hydrocodone-Acetaminophen 5-325 MG Orally 3 times a day 1 tablet as needed 8h Aug, Active Flonase 50 MCG/DOSE Nasally Once a day 1 spray in each nostril 24h Active Clonazepam 1 MG Orally Twice a day .5-1 tablet 12h Sep, 0 days Active Atenolol 50 mg Orally Once a [...] apnea Surgical History cholecystectomy 03/24/17 Hospitalization History [facility]iculitis-[facility] 08/2016 Hospitalization History Generalized anxiety disorder-[facility] 09/2016 Hospitalization History Diverticulitis-[facility] Left AMA 04/06/17 Hospitalization History ER visit for migraine 08/2017 Hospitalization History ER visit for chest pain 01/2018
--- OUTSIDE RECORDS SUMMARY | 2018-09-26 11:05 | XMS REPORT ---
Author Author NUZHAT FRANKS [facility] Address [address] [place] [address] Care Team Providers Care Children'S Program Coordinator Name Role Phone NUZHAT FRANKS Unavailable PROBLEMS Type Condition ICD9-CM Code ZPE41-FH Code Onset Dates Condition Status SNOMED Code Problem Insomnia, unspecified type G47.00 Active 850957729 Problem Biliary dyskinesia K82.8 Active 938829859 Problem Migraine with aura and without status migrainosus, not intractable G43.109 Active 7731284 Problem Tobacco abuse Z72.0 Active 203451263 Problem Morbid obesity E66.01 Active 659782493 Problem Diverticulitis of large intestine, unspecified bleeding status, unspecified complication status K57.32 Active 8137600 Problem RUQ abdominal pain R10.11 Active 214174383 Problem Other chronic pain G89.29 Active 69813679 Problem Lumbago with sciatica, right side M54.41 Active 104235822 Problem Essential (primary) hypertension I10 Active 46674003 Problem Anxiety F41.9 Active 34871386 Problem Elevated LDL cholesterol level E78.0 Active 185016082 Problem CAP (community acquired pneumonia) J18.9 Active 172732444 Problem Diverticulitis of large intestine without perforation or abscess without bleeding K57.32 Active 5420240 ALLERGIES No Information ENCOUNTERS Encounter Location Date Diagnosis [facility] [address] [id number] [id number] March, [facility] [address] [facility] [id number] [place] [id number] March, [facility] [address] [facility] [id number] [place] [id number] March, RUQ abdominal pain R10.11 [facility] [address] [facility] [id number] [address] Feb, Wheezing on auscultation R06.2 [facility] [address] [facility] [id number] [place] [id number] Feb, Anxiety F41.9 [facility] [id number] [place] [id number] Feb, [facility] [address] [id number] [place] [id number] Jan, BMI 50.0-59.9, adult Z68.43 ; Anxiety F41.9 ; Chest pain, unspecified type R07.9 and Essential (primary) hypertension I10 [address] [id number] [place] [id number] Jan, BMI 45.0-49.9, adult Z68.42 ; Morbid obesity E66.01 ; Chest pain, non-cardiac R07.89 ; Anxiety F41.9 ; Essential (primary) hypertension I10 and Tobacco abuse Z72.[address] [id number] [place] [id number] Jan, Essential (primary) hypertension I10 [facility] [address] [facility] [id number] [place] [id number] Dec, Essential (primary) hypertension I10 ; Migraine with aura and without status migrainosus, not intractable G43.109 ; Viral syndrome B34.9 and Lumbago with sciatica, right side M54.41 [facility] [address] [facility] [id number] [place] [id number] Nov, BMI 45.0-49.9, adult Z68.42 ; Migraine with aura and without status migrainosus, not intractable G43.109 and Essential (primary) hypertension I10 [facility] [address] [facility] [id number] [place] [id number] Nov, Essential (primary) hypertension I10 [facility] [address] [facility] [id number] [place] [id number] Nov, BMI 45.0-49.9, adult Z68.42 ; Essential (primary) hypertension I10 ; Anxiety F41.9 ; Lumbago with sciatica, right side M54.41 and Other chronic pain G89.29 [facility] [id number] [place] [id number] Nov, [facility] [id number] [place] [address] [id number] Aug, RUQ abdominal pain R10.11 [facility] [id number] [place] [address] [id number] Aug, Essential (primary) hypertension I10 and Anxiety F41.9 [facility] [id number] [place] [address] [id number] May, Essential (primary) hypertension I10 and Anxiety F41.9 [facility] [id number] [place] [address] [id number] March, Diverticulitis of large intestine, unspecified bleeding status, unspecified complication status K57.32 [facility] [address] [id number] [address] March, [facility] [id number] [place] [address] [id number] March, [facility] [id number] [place] [address] [id number] March, Chest wall pain R07.89 and Dysuria R30.0 [facility] [id number] [place] [address] [id number] March, Anxiety F41.9 [facility] [id number] [place] [address] [id number] Feb, Biliary dyskinesia K82.8 [facility] [id number] [place] [address] [id number] Feb, Biliary dyskinesia K82.8 [facility] [id number] [place] [address] [id number] Jan, Essential (primary) hypertension I10 and RUQ abdominal pain R10.11 [facility] [id number] [place] [address] [id number] Jan, Essential (primary) hypertension I10 and Anxiety F41.9 [facility] [id number] [place] [address] [id number] Dec, Essential (primary) hypertension I10 [facility] [id number] [place] [id number] Nov, Migraine with aura and without status migrainosus, not intractable G43.109 and Essential (primary) hypertension I10 [facility] [id number] [place] [address], [place] [id number] Nov, Anxiety F41.9 ; Migraine with aura and without status migrainosus, not intractable G43.109 and Insomnia, unspecified type G47.00 [facility] [id number] [place] [address] [id number] Oct, Migraine with aura and without status migrainosus, not intractable G43.109 [facility] [id number] [place] [address] [id number] Oct, Anxiety F41.9 and Essential (primary) hypertension I10 [facility] [address] [address] Oct, [facility] [address] [address] Sep, [facility] [id number] [place] [address] [id number] Sep, Diverticulitis of large intestine without perforation or abscess without bleeding K57.32 and Anxiety F41.9 [facility] [id number] [place] [address] [id number] Aug, Diverticulitis of large intestine without perforation or abscess without bleeding K57.32 [facility] [address] [address] Aug, [facility] [id number] [place] [address] [id number] Aug, [facility] [address] [address] Aug, [facility] [id number] [place] [address] [id number] Aug, [facility] [id number] [place] [address] [id number] Jul, Ingrown left big toenail L60.0 [id number] [place] [id number] Jul, [address] [id number] Jul, Ingrowing toenail of right foot L60.[address] [id number] Apr, [address] [id number] Apr, RUQ abdominal pain R10.11 ; Fatty liver disease, nonalcoholic K76.0 ; Hx of hyperglycemia Z86.39 ; Elevated alanine aminotransferase (ALT) level R74.0 ; Elevated LDL cholesterol level E78.0 and Prediabetes R73.09 [id number] [place] [address] [id number] Apr, RUQ abdominal pain R10.11 ; Mild persistent asthma without complication J45.30 ; Anxiety F41.9 and Essential (primary) hypertension I10 [place] [id number] [place] [address] [id number] March, Wheezing R06.2 and Cough R05 [address] [id number] March, [address] [id number] March, [address] [id number] March, Acute severe exacerbation of asthma J45.51 ; Cough R05 and Cough headache G44.[address] [id number] Feb, 2016 Mild intermittent asthma with acute exacerbation J45.21 and Transient insomnia F51.[address] [id number] Feb, Pigmented skin lesion of uncertain nature L81.9 [address] [id number] [place] [address] [id number] Feb, Anxiety F41.9 and Essential (primary) hypertension I10 [facility] [address] [place] [address] [id number] Jan, [place] [id number] [place] [address] [id number] 23 Jan, 2016 Routine gynecological examination Z01.419 and Encounter for Papanicolaou smear for cervical cancer screening Z12.4 [id number] [place] [address] [id number] 07 Jan, 2016 Essential (primary) hypertension I10 and Anxiety F41.9 [place] [id number] [place] [address] [id number] 10 Dec, 2015 Essential (primary) hypertension I10 and Anxiety F41.9 [address] [id number] [place] [address] [id number] Nov, Essential (primary) hypertension I10 [facility] [address] [id number] [place] [id number] Aug, [place] [id number] [place] [address] [id number] Aug, CAP (community acquired pneumonia) J18.[address] [place] [address] [id number] Aug, CAP (community acquired pneumonia) J18.9 [facility] [address] [id number] [place] [id number] Aug, CAP (community acquired pneumonia) J18.9 [id number] [place] [address] [id number] Aug, CAP (community acquired pneumonia) J18.9 and Essential (primary) hypertension I10 [address] [place] [address] [id number] Aug, CAP (community acquired pneumonia) J18.9 [facility] [id number] [place] [address] 08 Apr, 2015 [facility] [id number] [place] [address] [id number]- [id number] Feb, [facility] [place] [facility] [address] [id number] [place] [address] Feb, [facility] [address] [id number] [place] [id number] Jan, [facility] [place] [facility] [address] [id number] [place] [address] Jan, [facility] [place] [facility] [address] [facility] [id number] [address] Nov, [facility] [address] [facility] [id number] [place] [id number] Nov, [facility] [place] [facility] [address] [facility] [id number] [place] [address] Nov, [facility] [address] [facility] [id number] [place] [id number] Oct, [facility] [place] [facility] [address]00565100[place] [address] Oct, [facility] [address] [facility] [id number] [place] [id number] Sep, [facility] [place] [facility] [address] [facility] [id number] [address] Sep, [facility] [address] [facility] [id number] [place] [id number] Jun, [facility] [place] [facility] [address] [facility] [id number] [address] Jun, [facility] [address] [facility] [id number] [place] [id number] Jun, [facility] [place] [facility] [address] [facility] [id number] [place] [address] Jun, [facility] [address] [facility] [id number] [place] [id number] May, [facility] [place] [facility] [address] [facility] [id number] [place] [address] May, [facility] [address] [facility] [id number] [place] [id number] Dec, [facility] [place] [facility] [address] [id number] [place] [address] Dec, [facility] [address] [id number] [place] [id number] Feb, [facility] [address] [id number] [place] [id number] Feb, [facility] [address] [id number] [place] [id number] Feb, [facility] [place] [facility] [address] [facility] [id number] [place] [address] 16 Feb, 2013 [facility] [address] [id number] [place] [id number] 15 Feb, 2013 [facility] [address] [id number] [place] [id number] 15 Feb, 2013 [facility] [address]00565100[place] [address] 14 Feb, 2013 [facility] [place] [facility] [address] [facility] [id number] [place] [address] Feb, [facility] [address]00565100[place] [address] Feb, [facility] [address] [id number] [place] [id number] Feb, [facility] [address] [id number] [place] [id number] Feb, [facility] [address] [id number] [place] [id number] Jan, [facility] [address] [id number] [place] [id number] Nov, [facility] [address] [id number] [place] [id number] Nov, [facility] [place] [facility] [address] [facility] [id number] [address] Oct, [facility] [place] [facility] [address]00565100[place] [address] Apr, [facility] [place] [facility] [address] [facility] [id number] [address]- [address] 16 Dec, 2009 [facility] [address] [id number] [address] Nov, [facility] [address]65100[place] [address] Oct, [facility] [address] [id number] [address]- [address] Oct, [facility] [address] [id number] [address] Sep, [facility] [address] [id number] [address] Sep, [facility] [address] [facility] [id number] [address] Sep, IMMUNIZATIONS No Known Immunizations SOCIAL HISTORY Never Assessed REASON FOR VISIT med refills PLAN OF CARE VITAL SIGNS MEDICATIONS Medication Instructions Dosage Frequency Start Date End Date Duration Status Hydrochlorothiazide 25 MG Orally Once a day 1 tablet in the morning 24h Jan, 0 days Active Clonazepam 1 MG Orally [...]
--- OUTSIDE RECORDS SUMMARY | 2018-09-26 11:05 | XMS REPORT ---
Author Author NUZHAT FRANKS [facility] Address [address] [place] [address] Care Team Providers Care English Composition Instructor Name Role Phone NUZHAT FRANKS Unavailable PROBLEMS Type Condition ICD9-CM Code OHV57-QA Code Onset Dates Condition Status SNOMED Code Problem Insomnia, unspecified type G47.00 Active 036038847 Problem Biliary dyskinesia K82.8 Active 253051869 Problem Migraine with aura and without status migrainosus, not intractable G43.109 Active 9559412 Problem Tobacco abuse Z72.0 Active 405793070 Problem Morbid obesity E66.01 Active 277831106 Problem Diverticulitis of large intestine, unspecified bleeding status, unspecified complication status K57.32 Active 8570653 Problem RUQ abdominal pain R10.11 Active 590997479 Problem Other chronic pain G89.29 Active 38611501 Problem Lumbago with sciatica, right side M54.41 Active 911231538 Problem Essential (primary) hypertension I10 Active 40629096 Problem Anxiety F41.9 Active 96066918 Problem Elevated LDL cholesterol level E78.0 Active 351079969 Problem CAP (community acquired pneumonia) J18.9 Active 130987314 Problem Diverticulitis of large intestine without perforation or abscess without bleeding K57.32 Active 1158376 ALLERGIES Substance Reaction Event Type Date Status Lisinopril cough Drug Allergy Nov, Active ENCOUNTERS Encounter Location Date Diagnosis [facility] [address] [id number] [place] [id number] Jun, [facility] [address] [id number] [id number] May, [facility] [place] [address] [facility] [id number][place] [id number] May, [facility] [place] [address] [facility] [id number][place] [id number] Apr, [facility] [address] [id number][place] [id number] Apr, Dental examination Z01.20 [facility] [id number] [place] [address] [id number] Apr, Anxiety F41.9 [facility] [place] [id number] [place] [address] [id number] Apr, Anxiety F41.9 and Lumbago with sciatica, right side M54.41 [facility] [place] [id number] [place] [address] [id number] March, Anxiety F41.9 [facility] [place] [id number] [place] [address] [id number] March, Diverticulitis of large intestine, unspecified bleeding status, unspecified complication status K57.32 ; Anxiety F41.9 and Essential (primary) hypertension I10 [facility] [place] [id number] [place] [address] [id number] March, RUQ abdominal pain R10.11 [facility] [address]100[place] [phone] Feb, Wheezing on auscultation R06.2 [facility] [place] [id number] [place] [address] [id number] Feb, Anxiety F41.9 [facility] [place] [id number] [place] [address] [id number] Feb, [facility] [place] [id number] [place] [address] [id number] Jan, BMI 50.0-59.9, adult Z68.43 ; Anxiety F41.9 ; Chest pain, unspecified type R07.9 and Essential (primary) hypertension I10 [facility] [address] [place], [place] [address] [id number][place] [id number] 05 Jan, 2018 BMI 45.0-49.9, adult Z68.42 ; Morbid obesity E66.01 ; Chest pain, non-cardiac R07.89 ; Anxiety F41.9 ; Essential (primary) hypertension I10 and Tobacco abuse Z72.0 [facility] [id number][place] [id number] Jan, Essential (primary) hypertension I10 [facility] [address] [id number] Dec, Essential (primary) hypertension I10 ; Migraine with aura and without status migrainosus, not intractable G43.109 ; Viral syndrome B34.9 and Lumbago with sciatica, right side M54.41 [facility] [id number], [place] [id number] Nov, BMI 45.0-49.9, adult Z68.42 ; Migraine with aura and without status migrainosus, not intractable G43.109 and Essential (primary) hypertension I10 [address] [id number] Nov, Essential (primary) hypertension I10 [address]100[place] [id number] Nov, BMI 45.0-49.9, adult Z68.42 ; Essential (primary) hypertension I10 ; Anxiety F41.9 ; Lumbago with sciatica, right side M54.41 and Other chronic pain G89.29 [facility] [address]005[address] [id number] Nov, [address]005[address]100[place] [id number] Aug, RUQ abdominal pain R10.11 [address]00565100[place] [id number] Aug, Essential (primary) hypertension I10 and Anxiety F41.9 [address]00565100[place] [id number] May, Essential (primary) hypertension I10 and Anxiety F41.9 [place] [id number] [place] [address] [id number] March, Diverticulitis of large intestine, unspecified bleeding status, unspecified complication status K57.32 [facility] [address]00565100[place], [place] [address] March, [facility] [place] [id number], [place] [id number] March, [facility] [id number] [place] [address] [id number] March, Chest wall pain R07.89 and Dysuria R30.0 [facility] [place] [id number] [place] [address] [id number] March, Anxiety F41.9 [facility] [place] [id number] [place] [address] [id number] Feb, Biliary dyskinesia K82.8 [facility] [place] [id number] [place] [address] [id number] Feb, Biliary dyskinesia K82.8 [facility] [place] [id number] [place] [address] [id number] Jan, Essential (primary) hypertension I10 and RUQ abdominal pain R10.11 [facility] [place] [id number] [place] [address] [id number] Jan, Essential (primary) hypertension I10 and Anxiety F41.9 [facility] [place] [id number] [place] [address] [id number] Dec, Essential (primary) hypertension I10 [facility] [place] [id number] [place] [address] [id number] Nov, Migraine with aura and without status migrainosus, not intractable G43.109 and Essential (primary) hypertension I10 [facility] [place] [id number] [place] [address] [id number] Nov, Anxiety F41.9 ; Migraine with aura and without status migrainosus, not intractable G43.109 and Insomnia, unspecified type G47.00 [facility] [place] [id number] [place] [address] [id number] Oct, Migraine with aura and without status migrainosus, not intractable G43.109 [facility] [place] [id number] [place] [address] [id number] Oct, Anxiety F41.9 and Essential (primary) hypertension I10 [facility] [id number] [place] [address] Oct, [facility] [address] [address] Sep, [facility] [address] [id number] Sep, Diverticulitis of large intestine without perforation or abscess without bleeding K57.32 and Anxiety F41.9 [facility] [address] [id number] Aug, Diverticulitis of large intestine without perforation or abscess without bleeding K57.32 [facility] [address] [address] Aug, [address] [id number] Aug, [facility] [address] [address] Aug, [address] [id number] Aug, [address] [id number] Jul, Ingrown left big toenail L60.[address] [id number] Jul, [address] [id number] Jul, Ingrowing toenail of right foot L60.[address] [id number] Apr, [facility] [address] [id number] Apr, RUQ abdominal pain R10.11 ; Fatty liver disease, nonalcoholic K76.0 ; Hx of hyperglycemia Z86.39 ; Elevated alanine aminotransferase (ALT) level R74.0 ; Elevated LDL cholesterol level E78.0 and Prediabetes R73.[address] [id number] Apr, RUQ abdominal pain R10.11 ; Mild persistent asthma without complication J45.30 ; Anxiety F41.9 and Essential (primary) hypertension I10 [address] [place] [address] [id number] March, Wheezing R06.2 and Cough R05 [address] [place] [address] [id number] March, [place] [id number] [place] [address] [id number] March, [place] [id number] [place] [address] [id number] March, Acute severe exacerbation of asthma J45.51 ; Cough R05 and Cough headache G44.83 [place] [address] [place] [address] [id number] Feb, Mild intermittent asthma with acute exacerbation J45.21 and Transient insomnia F51.02 [place] [address] [place] [address] [id number] Feb, Pigmented skin lesion of uncertain nature L81.9 [address] [place] [address] [id number] Feb, Anxiety F41.9 and Essential (primary) hypertension I10 [address] [place] [address] [id number] Jan, [address] [place] [address] [id number] Jan, Routine gynecological examination Z01.419 and Encounter for Papanicolaou smear for cervical cancer screening Z12.4 [address] [place] [address] [id number] Jan, 2016 Essential (primary) hypertension I10 and Anxiety F41.9 [place] [id number] [place] [address] [id number] Dec, Essential (primary) hypertension I10 and Anxiety F41.9 [address]65100[place] [id number] Nov, Essential (primary) hypertension I10 [place] [id number]00565100[place] [id number] Aug, [facility] [place] [address] [facility] [id number], [place] [id number] Aug, CAP (community acquired pneumonia) J18.9 [facility] [place] [address] [facility] [id number], [place] [id number] Aug, CAP (community acquired pneumonia) J18.9 [facility] [place] [address] [id number][place] [id number] Aug, CAP (community acquired pneumonia) J18.9 [facility] [place] [address] [facility] [id number], [place] [id number] Aug, CAP (community acquired pneumonia) J18.9 and Essential (primary) hypertension I10 [facility] [place] [id number], [place] [id number] Aug, CAP (community acquired pneumonia) J18.9 [facility] [address]100[place], [place] [address] Apr, [facility] [address]00565100[place], [place] [address] Feb, [facility] [id number] [place] [address] 25[address] Feb, [facility] [place] [address] [facility] [id number], [place] [id number] Jan, [facility] [address]00565100[place], [place] [address] Jan, [facility] [address]00565100[place], [place] [address] Nov, [facility] [place] [address] [facility] [id number], [place] [id number] Nov, [facility] [id number] [place] [address]- [address] Nov, [facility] [place] [address] [address] [id number], [place] [id number] Oct, [facility] [address] [id number], [place] [address] Oct, [facility] [place] [address] [facility] [id number] [place] [id number] Sep, [facility] [address] [facility] [id number][place] [address] Sep, [facility] [place] [address] [facility] [id number] [place] [id number] Jun, [facility] [address]100[place], [place] [address] Jun, [facility] [place] [address] [facility] [id number] [place] [id number] Jun, [facility] [address] [facility] [id number], [place] [address] Jun, [facility] [place] [address] [id number] [place] [id number] May, [facility] [address]00565100[place], [place] [address] May, [facility] [place] [address] [facility] [id number] [place] [id number] Dec, [facility] [address]100[place], [place] [address] Dec, [facility] [place] [address] [id number] [place] [id number] Feb, [facility] [address] [id number] [place] [id number] Feb, [facility] [place] [address] [facility] [id number] [place] [id number] Feb, [facility] [address] [facility] [id number], [place] [address] 16 Feb, 2013 [facility] [place] [address] [facility] [id number] [place] [id number] Feb, [facility] [place] [address] [facility] [id number] [place] [id number] Feb, [facility] [address], [place] [address]- [address] 14 Feb, 2013 [facility] [address] [facility] [id number], [place] [address]- [address] Feb, [facility] [address] [facility] [id number], [place] [address]- [address] Feb, [facility] [address] [id number] [place] [id number] Feb, [facility] [address] [id number] [place] [id number] Feb, [facility] [address] [id number] [place] [id number] Jan, [facility] [address] [id number] [place] [id number] Nov, [facility] [address] [id number] [place] [id number] Nov, [facility] [address], [place] [address]- [address] Oct, [facility] [address]100[place], [place] [address]- [address] Apr, [facility] [address]100[place], [place] [address] Dec, [facility] [address]100[place], [place] [address]- [address] Nov, [facility] [address]100[place], [place] [address] Oct, [facility] [address], [place] [address]- [address] Oct, [facility] [address], [place] [address]- [address] Sep, [facility] [address]65100[place], [place] [address]- [address] Sep, [facility] [address], [place] [address] Sep, IMMUNIZATIONS Vaccine Route Administration Date Status PHENERGAN (IM) 25 MG (25 MG/ML) IM Intramuscular Dec 15, 2017 Administered PHENERGAN (IM) 25 MG (25 MG/ML) IM Intramuscular Dec 15, 2017 Administered TORADOL (IM) 60 MG/2ML (UP TO 15 MG) IM Intramuscular Dec 15, 2017 Administered SOCIAL HISTORY Never Assessed REASON FOR VISIT Migraine for 2 days Maikol DELGADO PLAN OF CARE Activity Details Follow Up 2 Weeks Reason:htn VITAL SIGNS Height 66 in 2017-12-15 Weight 309.0 lbs 2017-12-15 Temperature 98.4 degrees Fahrenheit 2017-12-15 Heart Rate 90 bpm 2017-12-15 Respiratory Rate 18 2017-12-15 BMI 49.87 kg/m2 2017-12-15 Blood pressure systolic 182 mmHg 2017-12-15 Blood pressure diastolic 94 mmHg 2017-12-15 MEDICATIONS Medication Instructions Dosage Frequency Start Date End Date Duration Status Singulair 10 MG Orally Once a day 1 tablet in the evening 24h Not- Taking Amlodipine Besylate 10 mg Orally Once a day .5 tablet 24h Nov, Active Losartan Potassium 100 MG Orally Once a day 1 tablet 24h Nov, Active Atenolol 50 mg Orally Once a day 1.5 tablet 24h Nov, Active Flonase 50 MCG/DOSE Nasally Once a day 1 spray in each nostril 24h Not-Taking Clonazepam 1 MG Orally Twice a day .5-1 tablet 12h Sep, 0 days Active Albuterol Sulfate 90 mcg/actuation Inhalation every 8 hrs 2 puffs by Inhalation route every 4-6 hours as needed PRN cough or wheezing 8h May, Not-Taking ZyrTEC 10 MG Orally Once a day 1 tablet 24h Not-Taking Promethazine HCl 25 MG Orally every 12 hrs 1 tablet as needed 12h Nov, Active Gabapentin 300 MG Orally Three times a day 1 capsule 1 tab qhs x 5 d then bid x 5 d then tid 8h Nov, Active RESULTS No Results PROCEDURES Procedure Date Ordered Result Body Site PHENERGAN (IM) 25 MG (25 MG/ML) Dec 15, 2017 TORADOL (IM) 60 MG/2ML (UP TO 15 MG) Dec 15, 2017 THER/PROPH/DIAG INJ, SC/IM Dec 15, 2017 INSTRUCTIONS MEDICATIONS ADMINISTERED No Known Medications MEDICAL (GENERAL) HISTORY Type Description Date Medical History hypertension Medical History asthma Medical History CT 08/2016 ED-sigmoid diverticulitis, hepatic steatosis, stable bilateral low density adrenal adenomas Medical History GERD Medical History IBSD Medical History sleep apnea Surgical History cholecystectomy 03/24/17 Hospitalization History Diverticulitis-[facility] 08/2016 Hospitalization History Generalized anxiety disorder-[facility] 09/2016 Hospitalization History Diverticulitis-[facility]. Left AMA 04/06/17 Hospitalization History ER visit for migraine 08/2017 Hospitalization History ER visit for chest pain 01/2018
--- OUTSIDE RECORDS SUMMARY | 2018-09-26 11:05 | XMS REPORT ---
Author Author NUZHAT FRANKS [facility] Address [address] [place] [address] Care Team Providers Care Infectious Disease Physician Name Role Phone NUZHAT FRANKS Unavailable PROBLEMS Type Condition ICD9-CM Code GYR78-YU Code Onset Dates Condition Status SNOMED Code Problem Insomnia, unspecified type G47.00 Active 816920224 Problem Biliary dyskinesia K82.8 Active 413618012 Problem Migraine with aura and without status migrainosus, not intractable G43.109 Active 9062356 Problem Tobacco abuse Z72.0 Active 207386291 Problem Morbid obesity E66.01 Active 205068724 Problem Diverticulitis of large intestine, unspecified bleeding status, unspecified complication status K57.32 Active 2954308 Problem RUQ abdominal pain R10.11 Active 972753035 Problem Other chronic pain G89.29 Active 62962078 Problem Lumbago with sciatica, right side M54.41 Active 196303582 Problem Essential (primary) hypertension I10 Active 11566652 Problem Anxiety F41.9 Active 38831260 Problem Elevated LDL cholesterol level E78.0 Active 675265773 Problem CAP (community acquired pneumonia) J18.9 Active 200746660 Problem Diverticulitis of large intestine without perforation or abscess without bleeding K57.32 Active 9722473 ALLERGIES Substance Reaction Event Type Date Status Lisinopril cough Drug Allergy Nov, Active ENCOUNTERS Encounter Location Date Diagnosis [facility] [address] [id number] [place] [id number] Jun, [facility] [address] [id number] [place] [id number] May, [facility] [place] [address] [facility] [id number] [id number] May, [facility] [place] [address] [facility] [id number] [place] [id number] Apr, [facility] [place] [address] [facility] [address] [id number] [place] [id number] Apr, Dental examination Z01.20 [facility] [id number] [place] [address] [id number] Apr, Anxiety F41.9 [facility] [place] [id number] [place] [address] [id number] Apr, Anxiety F41.9 and Lumbago with sciatica, right side M54.41 [facility] [place] [id number] [place] [address] [id number] March, Anxiety F41.9 [facility] [place] [id number] [place] [address] [id number] March, Diverticulitis of large intestine, unspecified bleeding status, unspecified complication status K57.32 ; Anxiety F41.9 and Essential (primary) hypertension I10 [facility] [place] [address] [place] [address] [id number] March, RUQ abdominal pain R10.11 [facility] [address]00565100[place], [place] [id number] Feb, Wheezing on auscultation R06.2 [facility] [id number] [place] [address] [id number] Feb, Anxiety F41.9 [facility] [place] [address] [place] [address] [id number] Feb, [facility] [place] [id number] [place] [address] [id number] Jan, BMI 50.0-59.9, adult Z68.43 ; Anxiety F41.9 ; Chest pain, unspecified type R07.9 and Essential (primary) hypertension I10 [facility] [address] [place], [place] [address] [id number] [place] [id number] 05 Jan, 2018 BMI 45.0-49.9, adult Z68.42 ; Morbid obesity E66.01 ; Chest pain, non-cardiac R07.89 ; Anxiety F41.9 ; Essential (primary) hypertension I10 and Tobacco abuse Z72.0 [facility] [id number] [place] [id number] Jan, Essential (primary) hypertension I10 [facility] [address]00565100[place] [id number] Dec, Essential (primary) hypertension I10 ; Migraine with aura and without status migrainosus, not intractable G43.109 ; Viral syndrome B34.9 and Lumbago with sciatica, right side M54.41 [facility] [id number] [place] [id number] Nov, BMI 45.0-49.9, adult Z68.42 ; Migraine with aura and without status migrainosus, not intractable G43.109 and Essential (primary) hypertension I10 [address]00565100[place] [id number] Nov, Essential (primary) hypertension I10 [address]65100[place] [id number] Nov, BMI 45.0-49.9, adult Z68.42 ; Essential (primary) hypertension I10 ; Anxiety F41.9 ; Lumbago with sciatica, right side M54.41 and Other chronic pain G89.29 [facility] [address]00565100[place] [id number] Nov, [address]00565100[place] [id number] Aug, RUQ abdominal pain R10.11 [address]65100[place] [id number] Aug, Essential (primary) hypertension I10 and Anxiety F41.9 [address]65100[place] [id number] May, Essential (primary) hypertension I10 and Anxiety F41.9 [id number] [place] [address] [id number] March, Diverticulitis of large intestine, unspecified bleeding status, unspecified complication status K57.32 [facility] [address]00565100[place] [address] March, [facility] [place] [id number] [place] [id number] March, [facility] [id number] [place] [address] [id number] March, Chest wall pain R07.89 and Dysuria R30.0 [facility] [id number] [place] [address] [id number] March, Anxiety F41.9 [facility] [place] [id number] [place] [address] [id number] Feb, Biliary dyskinesia K82.8 [facility] [place] [id number] [place] [address] [id number] Feb, Biliary dyskinesia K82.8 [facility] [place] [id number] [place] [address] [id number] Jan, Essential (primary) hypertension I10 and RUQ abdominal pain R10.11 [facility] [place] [id number] [place] [address] [id number] Jan, Essential (primary) hypertension I10 and Anxiety F41.9 [facility] [place] [id number] [place] [address] [id number] Dec, Essential (primary) hypertension I10 [facility] [place] [id number] [place] [address] [id number] Nov, Migraine with aura and without status migrainosus, not intractable G43.109 and Essential (primary) hypertension I10 [facility] [place] [id number] [place] [address] [id number] Nov, Anxiety F41.9 ; Migraine with aura and without status migrainosus, not intractable G43.109 and Insomnia, unspecified type G47.00 [facility] [place] [id number] [place] [address] [id number] Oct, Migraine with aura and without status migrainosus, not intractable G43.109 [facility] [place] [id number] [place] [address] [id number] Oct, Anxiety F41.9 and Essential (primary) hypertension I10 [facility] [id number] [place] [id number]46 Oct, [facility] [address] [address] Sep, [facility] [address] [id number] Sep, Diverticulitis of large intestine without perforation or abscess without bleeding K57.32 and Anxiety F41.9 [facility] [address] [id number] Aug, Diverticulitis of large intestine without perforation or abscess without bleeding K57.32 [facility] [address] [address] Aug, [address] [id number] Aug, [facility] [address] [address] Aug, [address] [id number] Aug, [address] [id number] Jul, Ingrown left big toenail L60.[address] [id number] Jul, [address] [id number] Jul, Ingrowing toenail of right foot L60.[address] [id number] Apr, [facility] [address] [id number] Apr, RUQ abdominal pain R10.11 ; Fatty liver disease, nonalcoholic K76.0 ; Hx of hyperglycemia Z86.39 ; Elevated alanine aminotransferase (ALT) level R74.0 ; Elevated LDL cholesterol level E78.0 and Prediabetes R73.[address] [id number] Apr, RUQ abdominal pain R10.11 ; Mild persistent asthma without complication J45.30 ; Anxiety F41.9 and Essential (primary) hypertension I10 [address] [place] [address] [id number] March, Wheezing R06.2 and Cough R05 [address] [place] [address] [id number] March, [place] [id number] [place] [address] [id number] March, [address] [id number] [place] [address] [id number] March, Acute severe exacerbation of asthma J45.51 ; Cough R05 and Cough headache G44.83 [id number] [place] [address] [id number] Feb, Mild intermittent asthma with acute exacerbation J45.21 and Transient insomnia F51.02 [address] [id number] [place] [address] [id number] Feb, Pigmented skin lesion of uncertain nature L81.9 [address] [place] [address] [id number] Feb, Anxiety F41.9 and Essential (primary) hypertension I10 [address] [place] [address] [id number] Jan, [address] [place] [address] [id number] Jan, Routine gynecological examination Z01.419 and Encounter for Papanicolaou smear for cervical cancer screening Z12.4 [address] [place] [address] [id number] 07 Jan, 2016 Essential (primary) hypertension I10 and Anxiety F41.9 [address] [id number] [place] [address] [id number] Dec, Essential (primary) hypertension I10 and Anxiety F41.9 [address]65100[place] [id number] Nov, Essential (primary) hypertension I10 [place] [address]00565100[place] [id number] Aug, [facility] [place] [address] [facility] [id number] [place] [id number] Aug, CAP (community acquired pneumonia) J18.9 [facility] [place] [address] [facility] [id number] [place] [id number] Aug, CAP (community acquired pneumonia) J18.9 [facility] [address] [id number] [place] [id number] Aug, CAP (community acquired pneumonia) J18.9 [facility] [place] [address] [facility] [id number] [place] [id number] Aug, CAP (community acquired pneumonia) J18.9 and Essential (primary) hypertension I10 [facility] [place] [id number] [place] [id number] Aug, CAP (community acquired pneumonia) J18.9 [facility] [address]005[address]100[place], [place] [address] Apr, [facility] [address]005[address]100[place], [place] [address]- [address] Feb, [facility] [id number] [place] [address] 18[address] 2546 Feb, [facility] [place] [address] [facility] [id number] [place] [id number] Jan, [facility] [address]005[address]100[place] [address]- [address] Jan, [facility] [address]00565100[place], [place] [address]- [address] Nov, [facility] [place] [address] [facility] [id number] [place] [id number] Nov, [facility] [address] [place] [address]- [address] Nov, [facility] [place] [address] [id number] [place] [id number] Oct, [facility] [address] [id number], [place] [address]- [address] Oct, [facility] [address] [facility] [id number] [place] [id number] Sep, [facility] [address] [facility] [id number] [address] Sep, [facility] [address] [facility] [id number] [place] [id number] Jun, [facility] [address]00565100[place], [place] [address] Jun, [facility] [address] [facility] [id number] [place] [id number] Jun, [facility] [address] [facility] [id number][place] [address] Jun, [facility] [place] [address] [id number] [place] [id number] May, [facility] [address]005[address], [place] [address] May, [facility] [address] [facility] [id number] [place] [id number] Dec, [facility] [address]005[address]100[place], [place] [address]- [address] Dec, [facility] [address] [id number] [place] [id number] Feb, [facility] [address] [id number] [place] [id number] Feb, [facility] [address] [facility] [id number] [place] [id number] Feb, [facility] [address] [facility] [id number][place] [address]- [address] 16 Feb, 2013 [facility] [place] [address] [facility] [id number] [place] [id number] Feb, [facility] [address] [facility] [id number] [place] [id number] Feb, [facility] [address], [place] [address]- 9[address] 14 Feb, 2013 [facility] [address] [facility] [id number][place] [address]- [address] Feb, [facility] [address] [facility] [id number][place] [address]- [address] Feb, [facility] [address] [id number] [place] [id number] Feb, [facility] [address] [id number] [place] [id number] Feb, [facility] [address] [id number] [place] [id number] Jan, [facility] [address] [id number] [place] [id number] Nov, [facility] [address] [id number] [place] [id number] Nov, [facility] [address]00565100[place], [place] [address]- [address] Oct, [facility] [address]100[place], [place] [address] Apr, [facility] [address]005[address]100[place], [place] [address]- [address] Dec, [facility] [address]100[place], [place] [address]- [address] Nov, [facility] [address]005[address]100[place], [place] [address]- [address] Oct, [facility] [id number], [place] [address]- [address] Oct, [facility] [address], [place] [address]- [address] Sep, [facility] [address] [id number] [address]- [address] Sep, [facility] [address]65100[place], [place] [address]- [address] Sep, IMMUNIZATIONS No Known Immunizations SOCIAL HISTORY Never Assessed REASON FOR VISIT Hypertension, migraines are getting worse, right leg pain Maikol RN PLAN OF CARE Activity Details Follow Up 4 Weeks Reason:b/p VITAL SIGNS Height 66 in 2017-12-07 Weight 307.2 lbs 2017-12-07 Temperature 98.1 degrees Fahrenheit 2017-12-07 Heart Rate 92 bpm 2017-12-07 Respiratory Rate 18 2017-12-07 BMI 49.58 kg/m2 2017-12-07 Blood pressure systolic 172 mmHg 2017-12-07 Blood pressure diastolic 90 mmHg 2017-12-07 MEDICATIONS Medication Instructions Dosage Frequency Start Date End Date Duration Status ZyrTEC 10 MG Orally Once a day 1 tablet 24h Not-Taking Losartan Potassium 50 mg Orally Once a day 1 tablet 24h Nov, Active Flonase 50 MCG/DOSE Nasally Once a day 1 spray in each nostril 24h Not-Taking Gabapentin 300 MG Orally Three times a day 1 capsule 1 tab qhs x 5 d then bid x 5 d then tid 8h Nov, Active Atenolol 50 mg Orally Once a day 1.5 tablet 24h Nov, Active Albuterol Sulfate 90 mcg/actuation Inhalation every 8 hrs 2 puffs by Inhalation route every 4-6 hours as needed PRN cough or wheezing 8h May, Not-Taking Clonazepam 1 MG Orally Twice a day .5-1 tablet 12h Sep, 0 days Active Singulair 10 MG Orally [...]
--- OUTSIDE RECORDS SUMMARY | 2018-09-26 11:06 | XMS REPORT ---
Author Author NUZHAT FRANKS [facility] Address [address] [place] [address] Care Team Providers Care Hl7 Interface Developer Name Role Phone NUZHAT FRANKS Unavailable PROBLEMS Type Condition ICD9-CM Code ODX82-OB Code Onset Dates Condition Status SNOMED Code Problem Insomnia, unspecified type G47.00 Active 257306111 Problem Biliary dyskinesia K82.8 Active 186298021 Problem Migraine with aura and without status migrainosus, not intractable G43.109 Active 3078642 Problem Tobacco abuse Z72.0 Active 974702216 Problem Morbid obesity E66.01 Active 735378491 Problem Diverticulitis of large intestine, unspecified bleeding status, unspecified complication status K57.32 Active 1727325 Problem RUQ abdominal pain R10.11 Active 928890740 Problem Other chronic pain G89.29 Active 42999932 Problem Lumbago with sciatica, right side M54.41 Active 910256453 Problem Essential (primary) hypertension I10 Active 77769443 Problem Anxiety F41.9 Active 66507732 Problem Elevated LDL cholesterol level E78.0 Active 325026865 Problem CAP (community acquired pneumonia) J18.9 Active 170966841 Problem Diverticulitis of large intestine without perforation or abscess without bleeding K57.32 Active 8958826 ALLERGIES No Information ENCOUNTERS Encounter Location Date Diagnosis [facility] [address] [id number] [id number] May, [facility] [place] [address] [facility] [id number][place] [id number] May, [facility] [id number], [place] [id number] Apr, [facility] [place] [address] [facility] [id number], [place] [id number] Apr, Anxiety F41.9 [facility] [address] [facility] [id number] [place] [address] [id number] Apr, Anxiety F41.9 and Lumbago with sciatica, right side M54.41 [facility] [place] [id number] [place] [address] [id number] March, Anxiety F41.9 [facility] [place] [id number], [place] [id number] March, Diverticulitis of large intestine, unspecified bleeding status, unspecified complication status K57.32 ; Anxiety F41.9 and Essential (primary) hypertension I10 [facility] [id number], [place] [id number] March, RUQ abdominal pain R10.11 [facility] [id number] [address] Feb, Wheezing on auscultation R06.2 [facility] [id number] [place] [address] [id number] Feb, Anxiety F41.9 [facility] [id number] [place] [address] [id number] Feb, [facility] [id number] [place] [address] [id number] Jan, BMI 50.0-59.9, adult Z68.43 ; Anxiety F41.9 ; Chest pain, unspecified type R07.9 and Essential (primary) hypertension I10 [address] [id number], [place] [id number] Jan, BMI 45.0-49.9, adult Z68.42 ; Morbid obesity E66.01 ; Chest pain, non-cardiac R07.89 ; Anxiety F41.9 ; Essential (primary) hypertension I10 and Tobacco abuse Z72.[id number] [place] [address] [id number] Jan, Essential (primary) hypertension I10 [facility] [address] [id number], [place] [id number] Dec, Essential (primary) hypertension I10 ; Migraine with aura and without status migrainosus, not intractable G43.109 ; Viral syndrome B34.9 and Lumbago with sciatica, right side M54.41 [facility] [address] [id number] [place] [address] [id number] Nov, BMI 45.0-49.9, adult Z68.42 ; Migraine with aura and without status migrainosus, not intractable G43.109 and Essential (primary) hypertension I10 [facility] [id number] [place] [address] [id number] Nov, Essential (primary) hypertension I10 [place] [id number] [place] [address] [id number] Nov, BMI 45.0-49.9, adult Z68.42 ; Essential (primary) hypertension I10 ; Anxiety F41.9 ; Lumbago with sciatica, right side M54.41 and Other chronic pain G89.29 [place] [id number] [place] [address] [id number] Nov, [place] [id number] [place] [address] [id number] Aug, RUQ abdominal pain R10.11 [place] [id number] [place] [address] [id number] Aug, Essential (primary) hypertension I10 and Anxiety F41.9 [place] [id number] [place] [address] [id number] May, Essential (primary) hypertension I10 and Anxiety F41.9 [place] [id number] [place] [address] [id number] March, Diverticulitis of large intestine, unspecified bleeding status, unspecified complication status K57.32 [facility] [id number] [id number] March, [place] [id number] [place] [address] [id number] March, [address] [place] [address] [id number] March, Chest wall pain R07.89 and Dysuria R30.0 [place] [id number] [id number] March, Anxiety F41.9 [facility] [place] [id number] [place] [address] [id number] Feb, Biliary dyskinesia K82.8 [facility] [place] [id number] [place] [address] [id number] Feb, Biliary dyskinesia K82.8 [facility] [place] [id number] [place] [address] [id number] Jan, Essential (primary) hypertension I10 and RUQ abdominal pain R10.11 [facility] [place] [id number] [place] [address] [id number] Jan, Essential (primary) hypertension I10 and Anxiety F41.9 [facility] [place] [id number] [place] [address] [id number] Dec, Essential (primary) hypertension I10 [facility] [place] [id number] [place] [address] [id number] Nov, Migraine with aura and without status migrainosus, not intractable G43.109 and Essential (primary) hypertension I10 [facility] [place] [id number] [place] [address] [id number] Nov, Anxiety F41.9 ; Migraine with aura and without status migrainosus, not intractable G43.109 and Insomnia, unspecified type G47.00 [facility] [place] [id number] [place] [address] [id number] Oct, Migraine with aura and without status migrainosus, not intractable G43.109 [facility] [place] [id number] [place] [address] [id number] Oct, Anxiety F41.9 and Essential (primary) hypertension I10 [facility] [address] [id number] Oct, [facility] [address] [id number] [place] [address] [id number] Sep, [facility] [place] [id number] [place] [address] [id number] Sep, Diverticulitis of large intestine without perforation or abscess without bleeding K57.32 and Anxiety F41.9 [facility] [id number] [place] [address] [id number] Aug, Diverticulitis of large intestine without perforation or abscess without bleeding K57.32 [facility] [address] [id number] [address] Aug, [facility] [address] [id number] Aug, [facility] [id number] [place] [address] Aug, [facility] [address] [id number] Aug, [facility] [address] [id number] Jul, Ingrown left big toenail L60.[address] [id number] Jul, [facility] [address] [id number] Jul, Ingrowing toenail of right foot L60.0 [place] [id number] [place] [address] [id number] Apr, [facility] [id number] [place] [address] [id number] Apr, RUQ abdominal pain R10.11 ; Fatty liver disease, nonalcoholic K76.0 ; Hx of hyperglycemia Z86.39 ; Elevated alanine aminotransferase (ALT) level R74.0 ; Elevated LDL cholesterol level E78.0 and Prediabetes R73.09 [place] [id number] [place] [address] [id number] 08 Apr, 2016 RUQ abdominal pain R10.11 ; Mild persistent asthma without complication J45.30 ; Anxiety F41.9 and Essential (primary) hypertension I10 [place] [id number] [place] [address] [id number] March, Wheezing R06.2 and Cough R05 [address] [place] [id number] March, [address] [place] [address] [id number] March, [place] [id number] [place] [address] [id number] March, Acute severe exacerbation of asthma J45.51 ; Cough R05 and Cough headache G44.83 [place] [id number] [place] [address] [id number] Feb, Mild intermittent asthma with acute exacerbation J45.21 and Transient insomnia F51.02 [address] [place] [address] [id number] Feb, Pigmented skin lesion of uncertain nature L81.9 [place] [id number] [place] [address] [id number] Feb, Anxiety F41.9 and Essential (primary) hypertension I10 [place] [id number] [place] [address] [id number] Jan, [place] [id number] [place] [address] [id number] Jan, Routine gynecological examination Z01.419 and Encounter for Papanicolaou smear for cervical cancer screening Z12.4 [place] [id number] [place] [address] [id number] Jan, Essential (primary) hypertension I10 and Anxiety F41.9 [address] [place] [address] [id number] Dec, Essential (primary) hypertension I10 and Anxiety F41.9 [address] [place] [address] [id number] Nov, Essential (primary) hypertension I10 [place] [address] [facility] [id number][place] [id number] Aug, [address] [place] [address] [id number] Aug, CAP (community acquired pneumonia) J18.9 [address] [place] [address] [id number] Aug, CAP (community acquired pneumonia) J18.9 [facility] [address] [facility] [id number], [place] [id number] Aug, CAP (community acquired pneumonia) J18.9 [facility] [place] [id number], [place] [id number] Aug, CAP (community acquired pneumonia) J18.9 and Essential (primary) hypertension I10 [facility] [place] [id number], [place] [id number] Aug, CAP (community acquired pneumonia) J18.9 [facility] [place] [facility] [id number] [address] Apr, [facility] [place] [facility] [id number] [address] Feb, [facility] [place] [facility] [id number] [address] Feb, [facility] [place] [id number], [place] [id number] Jan, [facility] [place] [facility] [id number] [address] Jan, [facility] [place] [facility] [id number] [address] Nov, [facility] [place] [address] [id number], [place] [id number] Nov, [facility] [place] [facility] [address] [id number] [address] Nov, [facility] [place] [address] [facility] [id number], [place] [id number] Oct, [facility] [place] [facility] [address]100[place] [address] Oct, [facility] [place] [address] [id number], [place] [id number] Sep, [facility] [place] [facility] [address] [id number] [address] Sep, [facility] [place] [address] [id number] [place] [id number] Jun, [facility] [address] [id number] [place] [address] Jun, [facility] [place] [address] [id number] [place] [id number] Jun, [facility] [address] [facility] [id number] [place] [address] Jun, [facility] [place] [address] [id number] [place] [id number] May, [facility] [address] [id number] [place] [address] May, [facility] [place] [address] [id number] [place] [id number] Dec, [facility] [address] [facility] [id number] [place] [address] Dec, [facility] [place] [address] [id number] [place] [id number] Feb, [facility] [place] [address] [id number] [place] [id number] Feb, [facility] [place] [address] [id number] [place] [id number] Feb, [facility] [address] [id number] [place] [address] 16 Feb, 2013 [facility] [place] [address] [id number] [place] [id number] 15 Feb, 2013 [facility] [place] [address] [id number] [place] [id number] 15 Feb, 2013 [facility] [place] [facility] [address] [facility] [id number] [place] [address]- [address] 14 Feb, 2013 [facility] [place] [facility] [address] [facility] [id number] [place] [address]- [address] 13 Feb, 2013 [facility] [address] [facility] [id number] [place] [address] 12 Feb, 2013 [facility] [place] [address] [id number], [place] [id number] Feb, [facility] [address] [id number], [place] [id number] Feb, [facility] [address] [id number], [place] [id number] Jan, [facility] [address] [id number], [place] [id number] Nov, [facility] [address]00565100[place], [place] [id number] Nov, [facility] [id number] [place] [address] 2984 Oct, [facility] [id number] [place] [address] 979084- 0818 Apr, [facility] [id number] [place] [address]- 0204 Dec, [facility] [id number] [place] [address]75- 1718 Nov, [facility] [address] [place] [address]- 3347 Oct, [facility] [id number] [place] [address]- [address]86 Oct, [facility] [address]00565100[place] [address] Sep, [facility] [address]00565100[place] [address] Sep, [facility] [address]65100[place] [address] Sep, IMMUNIZATIONS No Known Immunizations SOCIAL HISTORY Never Assessed REASON FOR VISIT Refill request PLAN OF CARE VITAL SIGNS MEDICATIONS Unknown [...] History Generalized anxiety disorder-[facility] 09/2016 Hospitalization History Diverticulitis-[facility]. Left AMA 04/06/17 Hospitalization History ER visit for migraine 08/2017 Hospitalization History ER visit for chest pain 01/2018
--- OUTSIDE RECORDS SUMMARY | 2018-09-26 11:13 | XMS REPORT | Continuity of Care Document ---
Author Author [facility] Address Unknown Phone Unavailable Allergies Active Description Code Type Severity Reaction Onset Reported/Identified Relationship to Patient Clinical Status Yes Ultram Drug Allergy 10/08/2009 Yes Ultram Drug Allergy N/A N/A 10/08/2009 Yes lisinopril 10 mg tablet Drug Allergy N/A N/A 03/19/2013 Yes tramadol HCl [id number] Drug Allergy Mild HIVES 03/17/2017 Yes tramadol HCl [id number] Drug Allergy Mild HIVES, Pt has r [...] VALLADARES MD 338.19 OTHER ACUTE PAIN 05/21/2010 FAUZAI VALLADARES MD 682.9 OTHER CELLULITIS AND ABSCESS, [...] 06/26/2010 TYLER GAN MD 278.02 OVERWEIGHT 06/26/2010 TYLRE GAN MD 300.00 ANXIETY UNSPEC 06/26/2010 TYLER [...] STD 03/06/2013 V76.2 Cervical Pap Smear 03/06/2013 UNZHAT FRANKS APRN 278.00 OBESITY 03/06/2013 NUZHAT FRANKS [...] SPIDER BITE 05/09/2015 JOSUE CUNNINGHAM Ot V06.1 [id number], COMBINED [ 05/09/2015 JOSUE CUNNINGHAM Ot V15.81 [...] 09/03/2016 ARNEL DO, PRINCESS K Ot Z79.84 SHELTER (CURRENT) USE OF ORAL HYPOGLYC 09/03/2016 ARNEL DO, PRINCESS K Ot Z79.899 OTHER STEAMING MACHINE OPERATOR (CURRENT) DRUG THERAPY 09/03/2016 ARNEL DO, PRINCESS [...] ARNEL DO, PRINCESS K Ot Z79.899 OTHER SHELTER (CURRENT) DRUG THERAPY 09/06/2016 ALCON LEE MD [...] JH PELLETIER, JERZY Flores Ot Z79.899 OTHER SHELTER (CURRENT) DRUG THERAPY 12/26/2016 FRANKS, NUZHAT R [...] 04/07/2017 POWER ABEBE MD Ot Z79.899 OTHER STEAMING MACHINE OPERATOR (CURRENT) DRUG THERAPY 04/07/2017 POWER ABEBE MD, [...] 04/07/2017 POWER ABEBE MD, Ot Z79.899 OTHER STEAMING MACHINE OPERATOR (CURRENT) DRUG THERAPY 04/07/2017 POWER ABEBE MD [...] RIGHT UPPER QUADRANT PAIN 07/18/2017 HEATHER SMITH TERRAZZO GRINDER Ot G47.10 HYPERSOMNIA, UNSPECIFIED 07/18/2017 HEATHER SMITH TERRAZZO GRINDER Ot G47.50 PARASOMNIA, UNSPECIFIED 07/18/2017 HEATHER SMITH TERRAZZO GRINDER Ot R53.83 OTHER FATIGUE 08/09/2017 HEATHER SMITH TERRAZZO GRINDER Ot J42 UNSPECIFIED CHRONIC BRONCHITIS 08/09/2017 HEATHER SMITH TERRAZZO GRINDER Ot J45.909 UNSPECIFIED ASTHMA, UNCOMPLICATED 08/09/2017 HEATHER SMITH TERRAZZO GRINDER Ot R53.83 OTHER FATIGUE 08/09/2017 HEATHER SMITH TERRAZZO GRINDER Ot Z72.0 TOBACCO USE 08/09/2017 NUZHAT FRANKS CFNP Ot R10.11 RIGHT UPPER QUADRANT PAIN 08/09/2017 HEATHER SMITH TERRAZZO GRINDER Ot J42 UNSPECIFIED CHRONIC BRONCHITIS 08/09/2017 HEATHER SMITH TERRAZZO GRINDER Ot J45.909 UNSPECIFIED ASTHMA, UNCOMPLICATED 08/09/2017 HEATHER SMITH TERRAZZO GRINDER Ot R53.83 OTHER FATIGUE 08/09/2017 HEATHER SMITH TERRAZZO GRINDER Ot Z72.0 TOBACCO USE 09/13/2017 POWER ABEBE MD Ot 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 09/13/2017 POWER ABBEE MD Ot F17.210 NICOTINE DEPENDENCE, CIGARETTES, UNCOMPL [...] INT W/O PERFORATION OR ABS 09/13/2017 POWER ABBEE MD Ot K76.0 FATTY (CHANGE OF) LIVER, NOT ELSEWHERE C 09/13/2017 POWER ABEBE MD Ot R73.03 PREDIABETES 09/22/2017 NUZHAT FRANKS Ot R10.11 RIGHT UPPER QUADRANT PAIN 01/27/2018 NUZHAT FRANKS Ot R10.11 RIGHT UPPER QUADRANT PAIN 01/27/2018 SOTERO VELASCO APRN Ot S80.11XA CONTUSION OF RIGHT LOWER LEG, INITIAL EN 01/27/2018 SOTERO VELASCO APRN Ot W19.XXXA UNSPECIFIED FALL, INITIAL ENCOUNTER 01/27/2018 VELASCO, SOTERO L TERRAZZO GRINDER Ot Y99.8 OTHER EXTERNAL CAUSE STATUS 01/27/2018 JUHI PELLETIER, BARON Chan Ot E11.9 TYPE 2 DIABETES MELLITUS WITHOUT COMPLIC 01/27/2018 JUHI EPLLETIER, BARON Chan Ot F32.9 MAJOR DEPRESSIVE DISORDER, [...] RIGHT UPPER QUADRANT PAIN 01/31/2018 SOTERO VELASCO TERRAZZO GRINDER Ot S80.11XA CONTUSION OF RIGHT LOWER LEG, INITIAL EN 01/31/2018 SOTERO VELASCO TERRAZZO GRINDER Ot W19.XXXA UNSPECIFIED FALL, INITIAL ENCOUNTER 01/31/2018 [...] LOWER LEG, INITIAL EN 03/08/2018 SOTERO VELASCO TERRAZZO GRINDER Ot W19.XXXA UNSPECIFIED FALL, INITIAL ENCOUNTER 03/08/2018 SOTERO VELASCO APRN Ot Y99.8 OTHER EXTERNAL CAUSE STATUS 03/31/2018 AMY BENSON APRN Ot E11.9 TYPE 2 DIABETES MELLITUS WITHOUT COMPLIC 03/31/2018 AMY BENSON APRN Ot E66.9 OBESITY, UNSPECIFIED 03/31/2018 AMY BENSON APRN Ot F32.9 MAJOR DEPRESSIVE DISORDER, SINGLE EPISOD 03/31/2018 AMY BENSON APRN Ot G43.909 MIGRAINE, UNSP, NOT INTRACTABLE, WITHOUT 03/31/2018 AMY BENSON APRN Ot I10 ESSENTIAL (PRIMARY) HYPERTENSION 03/31/2018 AMY BENSON APRN Ot J45.909 UNSPECIFIED ASTHMA, UNCOMPLICATED 03/31/2018 AMY BENSON APRN Ot K21.9 GASTRO-ESOPHAGEAL REFLUX DISEASE WITHOUT 03/31/2018 AMY BENSON APRN Ot K57.32 DVTRCLI OF LG INT W/O PERFORATION OR ABS 03/31/2018 AMY BENSON APRN Ot R10.32 LEFT LOWER QUADRANT PAIN 03/31/2018 AMY BENSON APRN Ot Z68.43 BODY MASS INDEX (BMI) 50-59.9 , ADULT 03/31/2018 AMY BENSON APRN Ot Z79.51 STEAMING MACHINE OPERATOR (CURRENT) USE OF INHALED STERO 03/31/2018 AMY BENSON APRN Ot Z87.19 PERSONAL HISTORY OF OTHER DISEASES OF TH 03/31/2018 AMY BENSON APRN Ot Z87.448 PERSONAL HISTORY OF OTHER DISEASES OF UR 03/31/2018 AMY BENSON APRN Ot Z88.6 ALLERGY STATUS TO ANALGESIC AGENT STATUS 04/03/2018 AMY BENSON APRN Ot E11.9 TYPE 2 DIABETES MELLITUS WITHOUT COMPLIC 04/03/2018 AMY BENSON APRN Ot E66.9 OBESITY, UNSPECIFIED 04/03/2018 AMY BENSON APRN Ot F32.9 MAJOR DEPRESSIVE DISORDER, SINGLE EPISOD 04/03/2018 AMY BENSON APRN Ot G43.909 MIGRAINE, UNSP, NOT INTRACTABLE, WITHOUT 04/03/2018 AMY BENSON APRN Ot I10 ESSENTIAL (PRIMARY) HYPERTENSION 04/03/2018 AMY BENSON APRN Ot J45.909 UNSPECIFIED ASTHMA, UNCOMPLICATED 04/03/2018 AMY BESNON APRN Ot K21.9 GASTRO-ESOPHAGEAL REFLUX DISEASE WITHOUT 04/03/2018 AMY BENSON APRN Ot K57.32 DVTRCLI OF LG INT W/O PERFORATION OR ABS 04/03/2018 AMY BENSON APRN Ot R10.32 LEFT LOWER QUADRANT PAIN 04/03/2018 AMY BENSON APRN Ot Z68.43 BODY MASS INDEX (BMI) 50-59.9 , ADULT 04/03/2018 AMY BENSON APRN Ot Z79.51 STEAMING MACHINE OPERATOR (CURRENT) USE OF INHALED STERO 04/03/2018 AMY BENSON APRN Ot Z87.19 PERSONAL HISTORY OF OTHER DISEASES OF TH 04/03/2018 AMY BENSON APRN Ot Z87.448 PERSONAL HISTORY OF OTHER DISEASES OF UR 04/03/2018 AMY BENSON APRN Ot Z88.6 ALLERGY STATUS TO ANALGESIC AGENT STATUS 08/07/2018 COSTA JEFFRIES COMMUNITY OUTREACH COORDINATOR Ot I10 ESSENTIAL (PRIMARY) HYPERTENSION 08/07/2018 COSTA JEFFRIES COMMUNITY OUTREACH COORDINATOR Ot R06.09 OTHER FORMS OF DYSPNEA 08/07/2018 COSTA JEFFRIES COMMUNITY OUTREACH COORDINATOR Ot R07.89 OTHER CHEST PAIN 08/09/2018 COSTA JEFFRIES COMMUNITY OUTREACH COORDINATOR Ot I10 ESSENTIAL (PRIMARY) HYPERTENSION 08/09/2018 COSTA JEFFRIES COMMUNITY OUTREACH COORDINATOR Ot R06.09 OTHER FORMS OF DYSPNEA 08/09/2018 COSTA JEFFRIES COMMUNITY OUTREACH COORDINATOR Ot R07.89 OTHER CHEST PAIN Procedures Code Description [place] [address] UA LONG DIP 12/18/2012 30877 MICRO ALBUMIN-IN HOUSE 12/18/2012 21875 WART DESTRUCT 1-14 (CRYO) 02/23/2013 36925 CULTURE UROGENITAL 03/06/2013 65682 SMEAR WET MOUNT SALINE/INK 03/06/2013 68085 GC/CHLAM PROBE (STATE) 03/06/2013 06902 PAP SMEAR 03/06/2013 Q0091 PAP SMEAR OBTAIN SMEAR 03/06/2013 45865 ROUTINE VENIPUNCTURE 03/07/2013 45887 CMP 03/07/2013 97480 LIPID PANEL 03/07/2013 37718 A1C (RML) 03/07/2013 19658 TSH 03/07/2013 70259 CBC 03/07/2013 26847 IMMUNOTHERAPY, ONE INJECTION 10/03/2014 J1885 TORADOL INJ 10/03/2014 J2550 PHENERGAN INJECTION UP TO 50 MG 10/03/2014 62376 ROUTINE VENIPUNCTURE 11/26/2014 69515 BMP 11/26/2014 16716 MAGNESIUM 11/26/2014 9121495 GFR CALC (RESULT ONLY) 11/26/2014 77610 NAIL REMOVAL SINGLE ( COMPLETE OR PARTIAL) [...] NRG Blood erythrocyte morphology finding identification NORMAL NRG Comprehensive metabolic panel - 04/06/17 15:15 Serum [...] OF GROWTH Isolated NRG Bacterial blood culture [id number] NRG Bacterial blood culture - 09/12/17 15:30 [...] Automated blood platelet mean volume measurement 10.9 [[facility]] 7.4-10.4 Automated blood neutrophils/100 leukocytes 61 % [...] 7-25 CREATININE 0.67 mg/dL 0.50-1.10 eGFR NON-AFR. CAMEROONIAN 111 mL/min/1.73m2 > OR=60 eGFR 128 mL/min/1.73m2 [...] 10.6 fL 7.5-12.5 ABSOLUTE NEUTROPHILS 6828 cells/uL 1369-0920 ABSOLUTE LYMPHOCYTES 2262 cells/uL 850-3900 ABSOLUTE MONOCYTES 566 cells/uL 200-950 ABSOLUTE EOSINOPHILS 394 cells/uL 15-500 ABSOLUTE BASOPHILS 51 cells/uL 0-200 NEUTROPHILS 67.6 % NRG LYMPHOCYTES 22.4 % NRG MONOCYTES 5.6 % NRG EOSINOPHILS 3.9 % NRG BASOPHILS 0.5 % NRG TSH - 02/06/18 10:23 TSH 0.95 mIU/L NRG Complete urinalysis with reflex to culture - 03/31/18 11:22 Urine color determination YELLOW NRG Urine clarity determination CLEAR NRG Urine pH measurement by test strip 6 5-9 Specific gravity of urine by test strip 1.015 1.016- 1.022 Urine protein assay by test strip, semi-quantitative 1+ NEGATIVE Urine glucose detection by automated test strip NEGATIVE NEGATIVE Erythrocytes detection in urine sediment by light microscopy 4+ NEGATIVE Urine ketones detection by automated test [...] culture YES NRG Bacterial urine culture - 03/31/18 11:22 URINE CULTURE RESULTS <10,000/ML NRG Complete blood count (CBC) with automated white blood cell (WBC) differential - 03/31/18 11:30 Blood leukocytes automated count (number/volume) 15.0 10*3/uL 4.3-11.0 Blood erythrocytes automated count (number/volume) 4.83 10*6/uL 4.35-5.85 Venous blood hemoglobin measurement (mass/volume) 15.0 g/dL 11.5-16.0 Blood hematocrit (volume fraction) 44 % 35-52 Automated erythrocyte mean corpuscular volume 91 [foz_us] 80-99 Automated erythrocyte mean corpuscular hemoglobin (mass per erythrocyte) 31 pg 25-34 Automated erythrocyte mean corpuscular hemoglobin concentration measurement ( mass/volume) 34 g/dL 32-36 Automated erythrocyte distribution width ratio 13.6 % 10.0-14.5 Automated blood platelet count (count/volume) 283 10*3/uL 130-400 Automated blood platelet mean volume measurement 10.8 [foz_us] 7.4-10.4 Automated blood neutrophils/100 leukocytes 78 % 42-75 Automated blood lymphocytes/100 leukocytes 13 % 12-44 Blood monocytes/100 leukocytes 8 % 0-12 Automated blood eosinophils/100 leukocytes 1 % 0-10 Automated blood basophils/100 leukocytes 0 % 0-10 Blood neutrophils automated count (number/volume) 11.8 10*3 1.8-7.8 Blood lymphocytes automated count (number/volume) 1.9 10*3 1.0-4.0 Blood monocytes automated count (number/volume) 1.1 10*3 0.0-1.0 Automated eosinophil count 0.2 10*3/uL 0.0-0.3 Automated blood basophil count (count/volume) 0.0 10*3/uL 0.0-0.1 Comprehensive metabolic panel - 03/31/18 11:30 Serum or plasma sodium measurement (moles/volume) 138 mmol/L 135-145 Serum or plasma potassium measurement (moles/volume) 4.0 mmol/L 3.6-5.0 Serum or plasma chloride measurement (moles/volume) 107 mmol/L 98-107 Carbon dioxide 23 mmol/L 21-32 Serum or plasma anion gap determination (moles/volume) 8 mmol/L 5-14 Serum or plasma urea nitrogen measurement (mass/volume) 6 mg/dL 7-18 Serum or plasma creatinine measurement (mass/volume) 0.58 mg/dL 0.60-1.30 Serum or plasma urea nitrogen/creatinine mass ratio 10 NRG Serum or plasma creatinine measurement with calculation of estimated glomerular filtration rate > NRG Serum or plasma glucose measurement (mass/volume) 108 mg/dL 70-105 Serum or plasma calcium measurement (mass/volume) 8.3 mg/dL 8.5-10.1 Serum or plasma total bilirubin measurement (mass/volume) 0.7 mg/dL 0.1-1.0 Serum or plasma alkaline phosphatase measurement (enzymatic activity/volume) 87 U/L 40-136 Serum or plasma aspartate aminotransferase measurement (enzymatic activity/ volume) 19 U/L 5-34 Serum or plasma alanine aminotransferase measurement (enzymatic activity/volume ) 28 U/L 0-55 Serum or plasma protein measurement (mass/volume) 6.0 g/dL 6.4-8.2 Serum or plasma albumin measurement (mass/volume) 3.9 g/dL 3.2-4.5 Blood manual differential performed detection - 03/31/18 11:30 Blood monocytes/100 leukocytes 6 % NRG Manual blood segmented neutrophils/100 leukocytes 78 % NRG Blood band neutrophils/100 leukocytes 0 % NRG Manual blood lymphocytes/100 leukocytes 15 % NRG Manual eosinophils/100 leukocytes in nose 1 % NRG Manual blood basophils/100 leukocytes 0 % NRG Blood erythrocyte morphology finding identification NORMAL NRG PDM - TRAMADOL - 06/01/18 08:20 Prescribed Drug 1 Clonazepam NRG COMMENT NRG Desmethyltramadol 4925 ng/mL <100 medMATCH Desmethyltram CONSISTENT NRG Tramadol 9157 ng/mL <100 medMATCH Tramadol CONSISTENT NRG Prescribed Drug 2 Tramadol NRG Encounters ACCT No. Visit Date/Time Discharge Status Pt. Type Provider Facility Loc./Unit Complaint [id number] 03/04/2015 13:00:00 03/04/2015 23:59:59 [facility] Outpatient TYLER GNA MD [id number] 12/03/2014 08:41:00 12/03/2014 23:59:59 [facility] Outpatient CORBY WALTERS DO [id number] 10/03/2014 14:53:00 10/03/2014 23:59:59 [facility] Outpatient CORBY WALTERS DO [id number] 08/05/2014 00:00:00 08/05/2014 23:59:59 [facility] Outpatient KATELYN AYALA DDS [id number] 06/25/2014 16:28:00 06/25/2014 23:59:59 [facility] Outpatient CORBY WALTERS DO [id number] 01/24/2014 15:30:00 01/24/2014 23:59:59 [facility] Outpatient NUZHAT FRANKS APRN [id number] 03/07/2013 08:40:00 03/07/2013 23:59:59 [facility] Outpatient JACQUELYN PELLETIER, FAUZIA [id number] 03/06/2013 13:23:00 03/06/2013 23:59:59 [facility] Outpatient [id number] 02/23/2013 08:44:00 02/23/2013 23:59:59 [facility] Outpatient [id number] 12/25/2012 14:09:00 12/25/2012 23:59:59 [facility] Outpatient NUZHAT FRANKS APRN [id number] 03/19/2013 14:36:00 Document Registration [id number] 07/04/2018 11:00:00 07/04/2018 23:59:59 [facility] Outpatient NUZHAT FRANKS APRN [facility] [id number] 06/01/2018 08:00:00 Document Registration [id number] 02/06/2018 09:20:00 Document Registration [id number] 08/08/2018 08:33:00 08/08/2018 23:59:59 CLS Outpatient COSTA JEFFRIES [facility] CARD I10 [id number] 08/04/2018 07:34:00 08/04/2018 23:59:59 CLS Outpatient COSTA JEFFRIES [facility] CARD ESSENTIAL HTN,OTHER CHEST PAIN,DYSPNEA ON EXERTION [id number] 03/31/2018 10:35:00 03/31/2018 14:44:00 DIS Emergency AMY BENSON APRN [facility] ER LOWER LEFT SIDE PAIN, NAUSEA,BLOODY STOOL [id number] 01/30/2018 20:24:00 01/30/2018 21:44:00 DIS Outpatient AMY BENSON APRN [facility] ER ABNORMAL EKG [id number] 01/27/2018 10:45:00 01/27/2018 12:48:00 DIS Emergency JUHI PELLETIER, BARON Chan [facility] ER CP LAST NIGHT [id number] 09/22/2017 10:14:00 09/22/2017 23:59:59 CLS Outpatient SOTERO VELASCO APRN [facility] RAD POST-TRAUMA,SWOLLEN; ERYTHEMATOUS [id number] 09/12/2017 14:35:00 09/13/2017 17:48:00 DIS Inpatient ANDRAE PELLETIER, POWER Frazier [facility] 4TH SEPSIS,DIVERTICULITIS, FAILED OUTPT ABXS [id number] 07/27/2017 16:23:00 07/27/2017 23:59:59 CLS Outpatient HEATHER SMITH APRN [facility] RT J30.2 SEASONAL ALLERGIES [id number] 07/18/2017 16:27:00 07/18/2017 16:40:00 DIS Outpatient HEATHER SMITH APRN [facility] SLEEP G47.10 [id number] 05/17/2017 07:33:00 05/17/2017 10:05:00 DIS Outpatient MARCELINA BRYAN DO [facility] ENDO REFLUX; SCREENING [id number] 05/13/2017 05:40:00 05/13/2017 12:27:00 DIS Outpatient MARCELINA BRYAN DO [facility] PREOP REFLUX, SCREENING [id number] 04/06/2017 16:00:00 04/07/2017 14:30:00 DIS Inpatient ANDRAE PELLETIER, POWER Frazier [facility] 4TH DIVERTICULITIS [id number] 03/24/2017 08:00:00 03/24/2017 13:30:00 DIS Outpatient MARCELINA BRYAN DO [facility] SDC BILIARY DYSKINESIA [id number] 03/17/2017 09:37:00 03/17/2017 11:06:00 DIS Outpatient MARCELINA BRYAN DO [facility] PREOP BILIARY DYSKENSIA [id number] 02/28/2017 12:06:00 02/28/2017 23:59:59 CLS Outpatient NUZHAT FRANKS CFAVA [facility] CARD RUQ ABD PAIN [id number] 02/23/2017 13:12:00 02/23/2017 23:59:59 CLS Outpatient NUZHAT FRANKS CFAVA [facility] RAD RUQ PAIN [id number] 12/26/2016 00:20:00 12/26/2016 02:36:00 DIS Emergency JH PELLETIER, JERZY Flores [facility] ER R SIDE AND BACK PAIN [id number] 10/26/2016 20:55:00 10/27/2016 10:45:00 DIS Inpatient ALCON LEE MD [facility] 4TH CHEST PAIN,HTN [id number] 09/05/2016 20:03:00 09/06/2016 12:52:00 DIS Inpatient ALCON LEE MD [facility] 4TH ACUTE DIVERTICULITIS, INTRACTABLE LLQ [id number] 09/02/2016 20:04:00 09/03/2016 00:16:00 DIS Emergency PRINCESS SEALS DO [facility] ER ABD PAIN [id number] 05/05/2016 10:40:00 05/05/2016 23:59:59 CLS Outpatient NUZHAT FRANKSNP [facility] RAD RUQ ABD PAIN [id number] 08/29/2015 15:25:00 08/29/2015 17:15:00 DIS Emergency CYDNEY BEYER MD [facility] ER SOA,CP [id number] 05/09/2015 12:00:00 05/09/2015 13:55:00 DIS Emergency JOSUE CUNNINGHAM [facility] ER R FOOT SWELLING/ SPIDER BITE [id number] 11/16/2014 23:42:00 11/17/2014 01:19:00 DIS Emergency VA GLEASON MD [facility] ER FALL;BACK PAIN [id number] 05/11/2012 07:49:00 Document Registration [id number] 02/27/2012 12:12:00 Document Registration
[2018-09-26] MEDS ORDERED: HYDROcodone/APAP 7.5 MG/325 MG (LORTAB, LORCET PLUS) TABLET PO STA (11:23)
[2018-09-26] MEDS ORDERED: LIDOCAINE 2% VISCOUS 15 ML UDC PO ONE (11:30)
--- NOTE | 2018-09-26 11:40 | ED EENT ---
History of Present Illness General Chief Complaint: Dental Problems/Pain Stated Complaint: TOOTH PAIN Nursing Triage Note: pt presents to er with complaint of broken tooth. has appt end of september History of Present Illness Date Seen by Provider: Sep 26, 2018 Time Seen by Provider: 11:10 Initial Comments 37 year old female presents with Right upper dental pain. The tooth has been broken for over a week but she noted another piece broke off in the last day. She saw the Dental clinic in [place], but does not have an appt until Mid-September. She took 2 Tramadol and 3 Ibuprofen this morning, but pain is still significant. She reports taking her lisinopril and amiodarone but her blood pressure is 200/120 at admission. Timing/Duration: last week Prearrival Treatment: over the counter meds (ibuprofen), prescription meds ( tramadol) Associated Symptoms: denies symptoms Allergies and Home Medications Allergies Coded Allergies: tramadol HCl (Verified Allergy, Mild, HIVES, Pt has received Lortab w/o issue, 09/12/17) Home Medications Atenolol 50 Mg Tablet, 75 MG PO HS, (Reported) TAKES 1 & 1/2 (50 MG) TABLETS Cetirizine HCl 10 Mg Tablet, 10 MG PO HS, (Reported) LAST FILLED 08/08/17 #30 Ciprofloxacin HCl 500 Mg Tablet, 500 MG PO Q12H, (Reported) FILLED 09/06/17 #14 FOR A 7 DAY THERAPY Ciprofloxacin HCl 500 Mg Tablet, 500 MG PO BID Prescribed by: AMY BENSON on 03/31/18 1322 Clonazepam 1 Mg Tablet, 0.5-1 MG PO BID PRN for ANXIETY, (Reported) TAKES 1/2-1 (1 MG) TABLET Fluticasone Propionate 16 Gm [place].susp, 1 SPRAY NSEACH DAILY, (Reported) LAST FILLED 06/28/17 #16GM Hydrochlorothiazide 25 Mg Tablet, 25 MG PO DAILY, (Reported) Hydrocodone Bit/Acetaminophen 1 Each Tablet, 1 TAB PO TID PRN for PAIN-MODERATE, (Reported) Hydrocodone Bit/Acetaminophen 1 Tab Tab, 1-2 EACH PO Q6H PRN for PAIN-MODERATE Prescribed by: HOSSEIN DEVLIN on 09/26/18 1209 Hydrocodone/Acetaminophen 1 Each Tablet, 1 EACH PO Q4M PRN for PAIN-SEVERE Prescribed by: AMY BENSON on 03/31/18 1322 Metronidazole 500 Mg Tablet, 500 MG PO Q12H, (Reported) FILLED 09/06/17 #14 FOR A 7 DAY THERAPY Metronidazole 500 Mg Tablet, 500 MG PO TID Prescribed by: AMY BENSON on 03/31/18 1322 Montelukast Sodium 10 Mg Tablet, 10 MG PO HS, (Reported) LAST FILLED 08/08/17 #30 Ondansetron 8 Mg Tab.rapdis, 8 MG PO Q6H PRN for NAUSEA/VOMITING-1ST LINE Prescribed by: AMY BENSON on 03/31/18 1322 Sucralfate 1 Gm Tablet, 1 GM PO ACHS PRN for STOMACH UPSET, (Reported) Patient Home Medication List Home Medication List Reviewed: Yes Review of Systems Review of Systems Constitutional: no symptoms reported, see HPI Mouth: see HPI, pain (right upper) All Other Systems Reviewed Negative Unless Noted: Yes Past Lunyvoj-Yeoukf-Futsme Hx Past Med/Social Hx: Reviewed Nursing Past Med/Soc Hx Patient Social History Alcohol Use: Occasionally Uses Number of Drinks Today: AA Alcohol Beverage of Choice: Beer Recreational Drug Use: No Type Used: Cigars Recent Foreign Travel: No Contact w/Someone Who Travel: No Recent Infectious Disease Expo: No Recent Hopitalizations: No Immunizations Up To Date Tetanus Booster (TDap): More than 5yrs PED Vaccines UTD: Yes Seasonal Allergies Seasonal Allergies: Yes (MILD) Past Medical History Surgeries: Yes (WART REMOVALS; "CYST" REMOVALS FROM SKIN OF VARIOUS PARTS OF BODY) Gallbladder Respiratory: Yes Asthma Currently Using CPAP: No Currently Using BIPAP: No Cardiac: Yes (SWELLING AT TIMES) Chronic Edema/Swelling, Hypertension Neurological: Yes Headaches /Migraines Reproductive Disorders: Yes Female Reproductive Disorders: Menstrual Problems, Polycystic Ovarian Dis Sexually Transmitted Disease: No HIV/AIDS: No Genitourinary: No Gastrointestinal: Yes (SANTORO DISEASE-FATTY LIVER) Colitis, Gastroesophageal Reflux, Diverticulosis, Ulcer Musculoskeletal: Yes (CHRONIC BILATERAL KNEE PAIN, chostrochrondritis) Chronic Back Pain Endocrine: Yes ("PRE" DIABETIC--DOES NOT CHECK BLOOD SUGAR; OBESITY) Diabetes, Non-Insulin dep Loss of Vision: Bilateral Hearing Impairment: Denies Cancer: No Did You Recieve Any Treatments: No Psychosocial: Yes Sleep Difficulties, Depression Integumentary: No Blood Disorders: No Adverse Reaction/Blood Tranf: No Family Medical History Alcoholism 19 FATHER 19 MOTHER Arthritis 19 MOTHER Asthma 19 MOTHER Cancer of mouth 19 FATHER Cataracts 19 MOTHER Dementia 19 MOTHER Diabetes mellitus Drug abuse 19 FATHER 19 MOTHER Fibrocystic disease of breast 19 MOTHER Headache disorder 19 MOTHER G8 SISTER Hypertension 19 MOTHER Respiratory disorder 19 FATHER 19 MOTHER No Pertinent Family Hx Physical Exam Vital Signs Vital Signs - First Documented 09/26/18 09/26/18 11:08 12:18 Temp 98.2 Pulse 74 Resp 20 B/P (MAP) 200/122 (148) Pulse Ox 97 O2 Delivery Room Air Height, Weight, BMI Height: 5'4.00" Weight: 280lbs. 0.0oz. 127.446851nl; 48.9 BMI Method:Stated General Appearance: WD/WN, no apparent distress Eyes: bilateral eye normal inspection, bilateral eye PERRL, bilateral eye EOMI Ears: bilateral ear auricle normal, bilateral ear canal normal, bilateral ear TM normal Nose: normal inspection; No discharge Mouth/Throat: pharynx normal, dental tenderness (right upper molar, with noted fracture. No inflammation and minimal tenderness along the buccal mucosa.) Neck: non-tender, full range of motion, supple, normal inspection; No lymphadenopathy (R), No lymphadenopathy (L) Cardiovascular: normal peripheral pulses, regular rate, rhythm Respiratory: chest non-tender, lungs clear, normal breath sounds Neurologic/Psychiatric: no motor/sensory deficits, alert, normal mood/affect, oriented x 3 Skin: normal color, warm/dry Progress/Results/Core Measures Results/Orders My Orders Orders - HOSSEIN DEVLIN Hydrocodone/Apap 7.5/325 Tab (Lortab 7. (09/26/18 11:23) Lidocaine 2% Viscous 15 Ml (Xylocaine Vi (09/26/18 11:30) Medications Given in ED Current Medications Medications Dose Ordered Sig/Nemo Route Start Time Stop Time Status Last Admin Dose Admin Lidocaine HCl 5 ml ONCE ONCE PO 09/26/18 11:30 09/26/18 11:31 DC 09/26/18 11:30 5 ML Vital Signs/I&O 09/26/18 09/26/18 11:08 12:18 Temp 98.2 98.2 Pulse 74 80 Resp 20 20 B/P (MAP) 200/122 (148) 166/82 (110) Pulse Ox 97 97 O2 Delivery Room Air Blood Pressure Mean: 148 Progress Progress Note : Time: 11:10 Progress Note Initial evaluation completed, will get hydrocodone 7.5 mg and apply 2 x 2 with viscous lidocaine. 1200 blood pressure 160/80. Patient reports pain improvement. Discharge instructions and return precautions reviewed with her. Since there were no signs of dental abscess or other indication for infection, no antibiotics were prescribed at this time. Departure Impression Primary Impression: Fractured tooth Qualified Codes: S02.5XXA - Fracture of tooth (traumatic), initial encounter for closed fracture Additional Impression: Pain, dental Disposition: HOME, SELF-CARE Condition: Improved Departure-Patient Inst. Decision time for Depature: 12:05 Referrals: CORBY WALTERS DO (PCP) Primary Care Physician NUZHAT FRANKS (Family) Primary Care Physician Patient Instructions: Fractured Tooth (DC), Dental Pain (DC) Add. Discharge Instructions: Continue to take ibuprofen 600 mg every 8 hours. Alternate between warm and cold compresses to your right cheek. Take hydrocodone only for severe pain. Follow-up with the dental clinic for appointment sooner. See your primary care provider for further pain management if not satisfactorily with this plan of care. Return to emergency department for new, urgent health care problems. All discharge instructions reviewed with patient and/or family. Voiced understanding. Scripts Hydrocodone Bit/Acetaminophen (Hydrocodone/Acetaminophen 5/325mg Tablet) 1 Tab Tab 1-2 EACH PO Q6H PRN for PAIN-MODERATE MDD 10, #20 TAB 0 Refills Prov: HOSSEIN DEVLIN 09/26/18 HOSSEIN DEVLIN Sep 26, 2018 11:40
[2018-09-26] MEDS ORDERED: ACHD5005 PO (12:09)
[2018-09-26 12:18] VITALS: BP 166/82
== END 2018-09-26 12:18 | disposition home or self-care (01) ==
LOC: EDUNIT# 10:05 → ER 10:06
DX: S02.5XXA Fracture of tooth (traumatic), initial encounter for closed fracture (principal); J45.909 Unspecified asthma, uncomplicated; I10 Essential (primary) hypertension; G43.909 Migraine, unspecified, not intractable, without status migrainosus; K21.9 Gastro-esophageal reflux disease without esophagitis; E66.9 Obesity, unspecified; E11.9 Type 2 diabetes mellitus without complications; F32.9 Major depressive disorder, single episode, unspecified; Z82.49 Family history of ischemic heart disease and other diseases of the circulatory system; Z68.42 Body mass index [BMI] 45.0-49.9, adult; Z80.0 Family history of malignant neoplasm of digestive organs; Z87.19 Personal history of other diseases of the digestive system; Z87.448 Personal history of other diseases of urinary system; Z88.6 Allergy status to analgesic agent; Z79.51 Long term (current) use of inhaled steroids; X58.XXXA Exposure to other specified factors, initial encounter
CPT/HCPCS: 99283

== ENCOUNTER 2018-10-21 16:58 | Emergency (ER) | payer SELFPAY ==
[~2018-10-21] VITALS: Ht 162.6 cm; Wt 131.5 kg
[2018-10-21] MEDS ORDERED: LIDOCAINE 1% INJ 20 ML 20 ML VIAL INJ ONE (17:15)
[2018-10-21] MEDS ORDERED: ceFAZolin INJECTION 1,000 MG in NS (IVPB) 50 ML IV ONE (17:15)
--- NOTE | 2018-10-21 17:26 | ED Upper Extremity ---
General Chief Complaint: Trauma-Non Activation Stated Complaint: L HAND INJ BY LOG SPLITTER Source: patient, family Exam Limitations: no limitations History of Present Illness Date Seen by Provider: Oct 21, 2018 Time Seen by Provider: 17:23 Initial Comments To ER by private vehicle accompanied by family with reports of a crush injury to the middle pointer and ring finger left hand from a log splitter at home just prior to arrival. Tetanus is up-to-date. Onset: just prior to arrival Severity: moderate Pain/Injury Location: left 2nd finger, left 3rd finger, left 4th finger Modifying Factors: Worse With Movement Allergies and Home Medications Allergies Coded Allergies: tramadol HCl (Verified Allergy, Mild, HIVES, Pt has received Lortab w/o issue, 09/12/17) Home Medications Atenolol 50 Mg Tablet, 75 MG PO HS, (Reported) TAKES 1 & 1/2 (50 MG) TABLETS Cephalexin 500 Mg Capsule, 500 MG PO TID Prescribed by: AMY BENSON on 10/21/181936 Cetirizine HCl 10 Mg Tablet, 10 MG PO HS, (Reported) LAST FILLED 08/08/17 #30 Ciprofloxacin HCl 500 Mg Tablet, 500 MG PO Q12H, (Reported) FILLED 09/06/17 #14 FOR A 7 DAY THERAPY Ciprofloxacin HCl 500 Mg Tablet, 500 MG PO BID Prescribed by: AMY BENSON on 03/31/18 132 Clonazepam 1 Mg Tablet, 0.5-1 MG PO BID PRN for ANXIETY, (Reported) TAKES 1/2-1 (1 MG) TABLET Fluticasone Propionate 16 Gm [place].susp, 1 SPRAY NSEACH DAILY, (Reported) LAST FILLED 06/28/17 #16GM Hydrochlorothiazide 25 Mg Tablet, 25 MG PO DAILY, (Reported) Hydrocodone Bit/Acetaminophen 1 Each Tablet, 1 TAB PO TID PRN for PAIN-MODERATE, (Reported) Hydrocodone Bit/Acetaminophen 1 Tab Tab, 1-2 EACH PO Q6H PRN for PAIN-MODERATE Prescribed by: HOSSEIN DEVLIN on 09/26/18 1209 Hydrocodone/Acetaminophen 1 Each Tablet, 1 EACH PO Q4M PRN for PAIN-SEVERE Prescribed by: AMY BENSON on 03/31/18 1322 Hydrocodone/Acetaminophen 1 Each Tablet, 1 EACH PO Q6H PRN for PAIN-MODERATE Prescribed by: AMY BENSON on 10/21/181936 Metronidazole 500 Mg Tablet, 500 MG PO Q12H, (Reported) FILLED 09/06/17 #14 FOR A 7 DAY THERAPY Metronidazole 500 Mg Tablet, 500 MG PO TID Prescribed by: AMY BENSON on 03/31/18 1322 Montelukast Sodium 10 Mg Tablet, 10 MG PO HS, (Reported) LAST FILLED 08/08/17 #30 Ondansetron 8 Mg Tab.rapdis, 8 MG PO Q6H PRN for NAUSEA/VOMITING-1ST LINE Prescribed by: AMY BENSON on 03/31/18 1322 Sucralfate 1 Gm Tablet, 1 GM PO ACHS PRN for STOMACH UPSET, (Reported) Patient Home Medication List Home Medication List Reviewed: Yes Review of Systems Constitutional: see HPI EENTM: see HPI Respiratory: no symptoms reported Cardiovascular: no symptoms reported Genitourinary: no symptoms reported Musculoskeletal: see HPI Skin: no symptoms reported Psychiatric/Neurological: No Symptoms Reported Past Qktgwgk-Currep-Nzeird Hx Patient Social History Alcohol Beverage of Choice: Beer Type Used: Cigars Recent Foreign Travel: No Contact w/Someone Who Travel: No Recent Hopitalizations: No Immunizations Up To Date Tetanus Booster (TDap): More than 5yrs PED Vaccines UTD: Yes Seasonal Allergies Seasonal Allergies: Yes (MILD) Past Medical History Surgeries: Yes (WART REMOVALS; "CYST" REMOVALS FROM SKIN OF VARIOUS PARTS OF BODY) Gallbladder Respiratory: Yes Asthma Currently Using CPAP: No Currently Using BIPAP: No Cardiac: Yes (SWELLING AT TIMES) Chronic Edema/Swelling, Hypertension Neurological: Yes Headaches /Migraines Reproductive Disorders: Yes Female Reproductive Disorders: Menstrual Problems, Polycystic Ovarian Dis Sexually Transmitted Disease: No HIV/AIDS: No Genitourinary: No Gastrointestinal: Yes (SANTORO DISEASE-FATTY LIVER) Colitis, Gastroesophageal Reflux, Diverticulosis, Ulcer Musculoskeletal: Yes (CHRONIC BILATERAL KNEE PAIN, chostrochrondritis) Chronic Back Pain Endocrine: Yes ("PRE" DIABETIC--DOES NOT CHECK BLOOD SUGAR; OBESITY) Diabetes, Non-Insulin dep Loss of Vision: Bilateral Hearing Impairment: Denies Cancer: No Did You Recieve Any Treatments: No Psychosocial: Yes Sleep Difficulties, Depression Integumentary: No Blood Disorders: No Adverse Reaction/Blood Tranf: No Family Medical History Alcoholism 19 FATHER 19 MOTHER Arthritis 19 MOTHER Asthma 19 MOTHER Cancer of mouth 19 FATHER Cataracts 19 MOTHER Dementia 19 MOTHER Diabetes mellitus Drug abuse 19 FATHER 19 MOTHER Fibrocystic disease of breast 19 MOTHER Headache disorder 19 MOTHER G8 SISTER Hypertension 19 MOTHER Respiratory disorder 19 FATHER 19 MOTHER No Pertinent Family Hx Physical Exam Vital Signs Vital Signs - First Documented 10/21/18 17:00 Temp 98.0 Pulse 82 Resp 18 B/P (MAP) 153/102 (119) Pulse Ox 98 O2 Delivery Room Air Capillary Refill : Height, Weight, BMI Height: 5'4.00" Weight: 280lbs. 0.0oz. 127.358039qo; 48.9 BMI Method:Stated General Appearance: WD/WN, no apparent distress HEENT: PERRL/EOMI, normal ENT inspection Respiratory: no respiratory distress, no accessory muscle use Shoulder: normal inspection, non-tender Elbow/Forearm: normal inspection, non-tender, Left Wrist: Yes normal inspection, Yes non-tender Hand: Left (there is a 6-7 cm laceration down to the bone over the dorsal aspect of the middle finger left hand from the DIP to the PIP joint. This finger is cold and with absent capillary refill of the finger tip which is bluish white in color. All of the other fingertips have brisk capillary refill.. ), deformity (there is obvious crush injury most significant of the middle finger but also affecting the pointer finger left hand. The ring finger is ecchymotic but there is no gross deformity to it. She does maintain sensation of the thumb pointer and middle and ring and pinky finger tips though sensation is reduced at the middle fingertip. A wrist block at the radial nerve (3cm proximal to the anatomic snuffbox radial side of the wrist using 3 mL of 1% lidocaine without epinephrine and median nerve block at the wrist using 4 mL of 1% lidocaine without epinephrine injected into the midline volar space of the wrist. This achieved complete pain control), laceration, limited ROM, soft tissue tenderness Neurologic/Psychiatric: alert, normal mood/affect, oriented x 3 Skin: normal color, warm/dry Procedures/Interventions Wound Location: Upper Extremities Wound Length (cm): 8 Wound's Depth, Shape: irregular, bone Wound Explored: clean Irrigated w/ Saline (ccs): 500 Volume Anesthetic (ccs): 3 Suture: Prolene Suture Size: 4-0 Number of Sutures: 6 Layer Closure?: 1 Number Deep Layer Sutures: 0 Anesthetized locally with former liters of 1% lidocaine without epinephrine. Wound edges then brought together loosely with 6 simple interrupted sutures size 4-0 Ethilon. Wound then covered with oil emulsion dressing and tube gauze. Progress/Results/Core Measures Results/Orders My Orders Orders - AMY BENSON APRN Iv Heplock-Insert (Order) (10/21/18 17:09) Cefazolin Injection (Ancef Injection) (10/21/18 17:15) Lidocaine 1% Inj 20 Ml (Xylocaine 1% Inj (10/21/18 17:15) Hand, Left, 3 Views (10/21/18 17:09) Fentanyl Injection (Sublimaze Injection (10/21/18 17:45) Hydromorphone Injection (Dilaudid Inject (10/21/18 18:45) Rx-Hydrocodone/Apap 5-325 Mg (Rx-Vicodin (10/21/18 19:45) Hydromorphone Injection (Dilaudid Inject (10/21/18 19:45) Medications Given in ED Current Medications Medications Dose Ordered Sig/Nemo Route Start Time Stop Time Status Last Admin Dose Admin Acetaminophen/ Hydrocodone Bitart 1 ea Q4HR PRN PO 10/21/18 19:45 10/21/18 19:56 1 EA Cefazolin Sodium 1000 mg/Sodium Chloride 50 ml @ 100 mls/hr ONCE ONCE IV 10/21/18 17:15 10/21/18 17:44 DC 10/21/18 18:08 100 MLS/HR Fentanyl Citrate 50 mcg ONCE ONCE IVP 10/21/18 17:45 10/21/18 17:46 DC 10/21/18 18:07 50 MCG Hydromorphone HCl 0.5 mg ONCE ONCE IV 10/21/18 19:45 10/21/18 19:46 DC 10/21/18 19:53 0.5 MG Hydromorphone HCl 1 mg ONCE ONCE IV 10/21/18 18:45 10/21/18 18:46 DC 10/21/18 18:53 1 MG Vital Signs/I&O 10/21/18 17:00 Temp 98.0 Pulse 82 Resp 18 B/P (MAP) 153/102 (119) Pulse Ox 98 O2 Delivery Room Air Departure Communication (Admissions) We do not have orthopedic coverage this weekend. We will talk to [facility] and possibly depending on [place]'s availability to help due to the concern for significant vascular injury to the left middle finger. 1823- spoke with orthopedics at [facility]. They recommend transfer to [facility] for possible revascularization. Patient states that she will drive herself or ever she must go. 1843-spoke with Dr. Kelley from orthopedics at the [facility] accepts the patient to the emergency room at . 1854- [facility] called back. Dr. Kelley had spoken with his colleagues, states that neither himself nor any colleagues are trained in microvascular hand surgery and they cannot accept the patient. 1926- spoke with Dr. Feldman from [facility] in [place]. After discussing the injuries with him, he does feel is the best plan at this time would be to loosely tack down the wound edges of the dorsal laceration after irrigation, antibiotics and that the wound declare itself. She does have some capillary refill but it is markedly diminished in this finger. Exploratory surgery may devitalize currently viable tissue, additionally since the crush injury is down the radial side of the middle finger parallel to the long axis of the finger so the neurovascular bundle on this entire course is likely crushed and there are no 2 vessel ends that can be sutured together. He would be willing to see her in his clinic Tuesday. He would recommend antibiotics and aspirin in the meantime. I discussed this plan with the patient and she agrees to this. She will follow up with him on Tuesday she states. She already takes a baby aspirin daily but she does smoke cigarettes which were reduce her chances of appropriate wound healing. Impression Primary Impression: Crushing injury of left hand and finger Qualified Codes: S67.22XA - Crushing injury of left hand, initial encounter Disposition: SHT-TRM HOSP Condition: Stable Departure-Patient Inst. Decision time for Depature: 18:25 Referrals: CORBY WALTERS DO (PCP) Primary Care Physician NUZHAT FRANKS (Family) Primary Care Physician Patient Instructions: Crush Injury Add. Discharge Instructions: 1. Continue taking her aspirin. Stop smoking. Keep the hand warm. Keep this dressing in place until Tuesday afternoon when you see Dr. Feldman. Return to ER for any concerns. Scripts Hydrocodone/Acetaminophen ([place] 5-325 Tablet) 1 Each Tablet 1 EACH PO Q6H PRN for PAIN-MODERATE MDD 10, #14 TAB Prov: AMY BENSON APRN 10/21/18 Cephalexin (Keflex) 500 Mg Capsule 500 MG PO TID, #21 CAP Prov: AMY BENSON APRN 10/21/18 AMY BENSON APRN Oct 21, 2018 17:26
[2018-10-21] MEDS ORDERED: fentaNYL INJECTION 100 MCG/2 ML AMP IVP ONE (17:45)
--- NOTE | 2018-10-21 17:50 | Diagnostic Imaging Report ---
INDICATION: Trauma. Injury. COMPARISON: None. FINDINGS: Three views of the left hand show no fractures, dislocations, or other acute bony abnormalities identified. Joint spaces are well maintained throughout. The soft tissues appear unremarkable. No radiopaque foreign bodies are identified. IMPRESSION: No acute fractures or dislocations of the left hand. Dictated by: Dictated on workstation # [id number]
[2018-10-21] MEDS ORDERED: HYDROmorphone 2 MG/ML VIAL (DILAUDID) IV ONE ×2 (18:45→19:45)
[2018-10-21] MEDS ORDERED: HYDR-4226 PO (19:37)
[2018-10-21] MEDS ORDERED: CEPH-507 PO (19:37)
[2018-10-21] MEDS ORDERED: RX-HYDROCODONE/APAP 5/325 MG #4 TAB PK PO PRN (19:45)
[2018-10-21 21:25] VITALS: BP 120/90
[2018-10-22] MEDS ORDERED: OXYC1TAB12 PO (15:26)
[2018-10-22] MEDS ORDERED: CEPH-507 PO (15:26)
== END 2018-10-21 21:25 | disposition short-term general hospital (02) ==
LOC: EDUNIT# 16:58 → ER 16:59
DX: S67.22XA Crushing injury of left hand, initial encounter (principal); S61.213A Laceration without foreign body of left middle finger without damage to nail, initial encounter; J45.909 Unspecified asthma, uncomplicated; I10 Essential (primary) hypertension; G43.909 Migraine, unspecified, not intractable, without status migrainosus; K21.9 Gastro-esophageal reflux disease without esophagitis; E11.9 Type 2 diabetes mellitus without complications; E66.9 Obesity, unspecified; F32.9 Major depressive disorder, single episode, unspecified; Z87.19 Personal history of other diseases of the digestive system; Z82.49 Family history of ischemic heart disease and other diseases of the circulatory system; Z80.0 Family history of malignant neoplasm of digestive organs; Z68.42 Body mass index [BMI] 45.0-49.9, adult; Z79.51 Long term (current) use of inhaled steroids; W23.1XXA Caught, crushed, jammed, or pinched between stationary objects, initial encounter; Y92.009 Unspecified place in unspecified non-institutional (private) residence as the place of occurrence of the external cause
CPT/HCPCS: 12042; 64450; 73130; 96365; 96375; 96376

== ENCOUNTER 2018-10-22 14:41 | Emergency (ER) | payer SELFPAY ==
[~2018-10-22] VITALS: Ht 162.6 cm; Wt 131.5 kg
[~2018-10-22 14:41] MED LIST changes: +CEPH-507 PO
[2018-10-22] MEDS ORDERED: oxyCODONE/APAP 10/325MG (PERCOCET 10) TABLET PO ONE (15:15)
[2018-10-22] MEDS ORDERED: CEPH-507 PO (15:26)
[2018-10-22] MEDS ORDERED: OXYC1TAB12 PO (15:26)
--- NOTE | 2018-10-22 15:26 | ED Suture Removal/Wound Check ---
Suture/Wound Re-check Suture Removal/Wound Recheck : Progress To ER with reports of a hand injury from yesterday bleeding through the dressing. She was here yesterday for a crush injury of the middle 3 fingers left hand from a log splitter. There was concerns about neurovascular bundle injury to the middle finger of the tip of that finger was cyanotic and with essentially absent capillary refill. After speaking with plastic surgery from [facility] in [place], it was determined that the best plan would be to loosely suture the laceration closed, antibiotics, pain control and Dr. Feldman would see her tomorrow, Tuesday in his office. She also states that the hydrocodone 5/325 is not helping. She has not yet been able to fill the antibiotics sent yesterday. General Appearance: WD/WN, no apparent distress Skin Exam: warm/dry, other (there is bleeding from the most proximal portion of the laceration to the dorsal aspect of the left middle finger. The distal half of the middle finger remains cyanotic cold and without capillary refill.) Physical Exam Vital Signs Vital Signs - First Documented 10/22/18 15:07 Pulse 78 Resp 18 B/P (MAP) 102/61 Pulse Ox 18 O2 Delivery Room Air Capillary Refill : General Appearance: WD/WN, no apparent distress Neck: non-tender, full range of motion Respiratory: no respiratory distress, no accessory muscle use Extremities: other (see recheck documentation) Neurologic/Psychiatric: normal mood/affect, oriented x 3 Skin: normal color, warm/dry Comments There was some slow oozing of blood from the proximal portion of this laceration. The dressing from yesterday was removed, reapplied and oil emulsion dressing and tube gauze Departure Impression Primary Impression: Visit for wound check Disposition: HOME, SELF-CARE Condition: Stable Departure-Patient Inst. Decision time for Depature: 15:24 Referrals: CORBY WALTERS DO (PCP) Primary Care Physician NUZHAT FRANKS (Family) Primary Care Physician Patient Instructions: Wound Care (DC) Add. Discharge Instructions: Keep the hand warm. Continue to avoid smoking. Baby aspirin daily. Call Dr. Feldman's office tomorrow morning at 8 AM to make an appointment to be seen tomorrow. Antib[facility] as directed, [facility]. Throat weight a hydrocodone and replace with oxycodone. All discharge instructions reviewed with patient and/or family. Voiced understanding. Scripts Cephalexin (Keflex) 500 Mg Capsule 500 MG PO TID, #21 CAP Prov: AMY BENSON APRN 10/22/18 Oxycodone HCl/Acetaminophen (Percocet 10-325 mg Tablet) 1 Each Tablet 1 EACH PO Q6H PRN for PAIN-MODERATE MDD 3, #20 TAB Prov: AYM BENSON APRN 10/22/18 AMY BENSON APRN Oct 22, 2018 15:26
[2018-10-22] MEDS ORDERED: CEFDINIR 300 MG (OMNICEF) CAP PO ONE (15:30)
[2018-10-22] MEDS ORDERED: oxyCODONE/APAP 5/325MG (PERCOCET 5) TABLET PO ONE (15:30)
[2018-10-22 15:42] VITALS: BP 102/61
== END 2018-10-22 15:42 | disposition home or self-care (01) ==
LOC: EDUNIT# 14:41 → ER 14:42
DX: S61.213D Laceration without foreign body of left middle finger without damage to nail, subsequent encounter (principal); W31.2XXD Contact with powered woodworking and forming machines, subsequent encounter
CPT/HCPCS: 99282

== ENCOUNTER 2020-01-28 15:02 | Emergency (ER) | payer SELFPAY ==
[~2020-01-28] VITALS: Ht 162.5 cm; Wt 127.0 kg
[~2020-01-28 15:02] MED LIST changes: -IBUP-2055 PO; +IBUP-2473 PO; +METR-145 PO; -METR-197 PO; -MONT10TA24 PO; +MONT10TA26 PO; +OXYC1TAB12 PO
[2020-01-28] MEDS ORDERED: NS IV 500 ML 500 ML IV ONE (16:09)
[2020-01-28 16:15] LABS: BASOPHILS % (AUTO) 0 % (0-10); EOSINOPHILS # (AUTO) 0.4 10^3/uL (0.0-0.3); EOSINOPHILS % (AUTO) 4 % (0-10); HEMATOCRIT 44 % (35-52); HEMOGLOBIN 14.2 G/DL (11.5-16.0); LYMPHOCYTES # (AUTO) 2.6 X 10^3 (1.0-4.0); LYMPHOCYTES % (AUTO) 28 % (12-44); MEAN CORPUSCULAR HEMOGLOBIN 30 PG (25-34); MEAN CORPUSCULAR HGB CONC 33 G/DL (32-36); MEAN CORPUSCULAR VOLUME 92 FL (80-99); MEAN PLATELET VOLUME 10.3 FL (7.4-10.4); MONOCYTES # (AUTO) 0.8 X 10^3 (0.0-1.0); MONOCYTES % (AUTO) 9 % (0-12); NEUTROPHILS # (AUTO) 5.5 X 10^3 (1.8-7.8); NEUTROPHILS % (AUTO) 59 % (42-75); PLATELET COUNT 334 10^3/uL (130-400); RED CELL DISTRIBUTION WIDTH 13.4 % (10.0-14.5); WHITE BLOOD COUNT 9.3 10^3/uL (4.3-11.0)
[2020-01-28] MEDS ORDERED: fentaNYL INJECTION 100 MCG/2 ML AMP IVP ONE (16:15)
[2020-01-28 16:31] LABS: INR 0.9 (0.8-1.4); PROTHROMBIN TIME PATIENT 12.7 SEC (12.2-14.7)
--- NOTE | 2020-01-28 17:04 | Diagnostic Imaging Report ---
PROCEDURE: US Non-ob pelvis comp/trans. TECHNIQUE: Multiple realtime grayscale images were obtained of the pelvis in various projections endovaginally. Transabdominal imaging was also performed. INDICATION: Menorrhagia. COMPARISON: There are no prior studies available for comparison. FINDINGS: The uterus is nongravid, retroverted, and not enlarged measuring 7.3 x 4.8 x 5.4 cm. The endometrial lining is slightly thickened measuring 7 mm (normal 5 mm or less). This finding is nonspecific. Correlation with the patient's menstrual cycle would be recommended. There is no focal mass involving the uterus to suggest a fibroid. The right ovary was identified and was unremarkable. The left ovary could not be clearly visualized. There is a small amount of free fluid in the cul-de-sac. This is nonspecific. This could be secondary to a mild inflammatory process or to the recent rupture of a small cyst. There is no solid pelvic mass noted. IMPRESSION: 1. There is a small amount of nonspecific free fluid in the cul-de-sac. 2. There is no acute pelvic abnormality noted otherwise and there is no sign of a pelvic mass. 3. The left ovary could not be identified. Dictated by: Dictated on workstation # [id number]
[2020-01-28] MEDS ORDERED: MEDR10TA PO ×2 (17:28→17:30)
[2020-01-28] MEDS ORDERED: HYDROcodone/APAP 5 MG/325 MG (LORTAB) TAB PO ONE (17:30)
--- NOTE | 2020-01-28 17:31 | ED GU-Female ---
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 She historically has had very regular menstrual cycles. However, she had a prolonged cycle in October. She then began bleeding again December 09 and has not stopped since then. Over the past couple days bleeding has become very heavy. She has some pelvic discomfort. She describes this as a tearing sensation. She today she is feeling very tired and lightheaded. She is not sexually active. She took ibuprofen 800 mg 2 hours ago without significant relief. Her primary care provider is Jeison Franks at the [facility] and her women's health provider is Dr. Gan. Allergies and Home Medications Allergies Coded Allergies: tramadol HCl (Verified Allergy, Mild, HIVES, Pt has received Lortab w/o issue, 09/12/17) Home Medications Atenolol 50 Mg Tablet, 75 MG PO HS, (Reported) TAKES 1 & 1/2 (50 MG) TABLETS Cephalexin 500 Mg Capsule, 500 MG PO TID Prescribed by: AMY BENSON on 10/21/18 1937 Cephalexin 500 Mg Capsule, 500 MG PO TID Prescribed by: AMY BENSON on 10/22/18 1526 Cetirizine HCl 10 Mg Tablet, 10 MG PO HS, (Reported) LAST FILLED 08/08/17 #30 Ciprofloxacin HCl 500 Mg Tablet, 500 MG PO Q12H, (Reported) FILLED 09/06/17 #14 FOR A 7 DAY THERAPY Ciprofloxacin HCl 500 Mg Tablet, 500 MG PO BID Prescribed by: AMY BENSON on 03/31/18 1322 Clonazepam 1 Mg Tablet, 0.5-1 MG PO BID PRN for ANXIETY, (Reported) TAKES 1/2-1 (1 MG) TABLET Fluticasone Propionate 16 Gm [place].susp, 1 SPRAY NSEACH DAILY, (Reported) LAST FILLED 06/28/17 #16GM Hydrochlorothiazide 25 Mg Tablet, 25 MG PO DAILY, (Reported) Hydrocodone Bit/Acetaminophen 1 Each Tablet, 1 TAB PO TID PRN for PAIN-MODERATE, (Reported) Hydrocodone Bit/Acetaminophen 1 Tab Tab, 1-2 EACH PO Q6H PRN for PAIN-MODERATE Prescribed by: HOSSEIN DEVLIN on 09/26/18 1209 Hydrocodone Bit/Acetaminophen 1 Each Tablet, 1 TAB PO Q4-6HR Prescribed by: JERZY CHA on 01/28/20 1732 Hydrocodone/Acetaminophen 1 Each Tablet, 1 EACH PO Q4M PRN for PAIN-SEVERE Prescribed by: AMY BENSON on 03/31/18 1322 Hydrocodone/Acetaminophen 1 Each Tablet, 1 EACH PO Q6H PRN for PAIN-MODERATE Prescribed by: AMY BENSON on 10/21/18 1937 Medroxyprogesterone Acetate 10 Mg Tablet, 10 MG PO DAILY Prescribed by: JERZY CHA on 01/28/20 1730 Metronidazole 500 Mg Tablet, 500 MG PO Q12H, (Reported) FILLED 09/06/17 #14 FOR A 7 DAY THERAPY Metronidazole 500 Mg Tablet, 500 MG PO TID Prescribed by: AMY BENSON on 03/31/18 1322 Montelukast Sodium 10 Mg Tablet, 10 MG PO HS, (Reported) LAST FILLED 08/08/17 #30 Ondansetron 8 Mg Tab.rapdis, 8 MG PO Q6H PRN for NAUSEA/VOMITING-1ST LINE Prescribed by: AMY BENSON on 03/31/18 1322 Oxycodone HCl/Acetaminophen 1 Each Tablet, 1 EACH PO Q6H PRN for PAIN-MODERATE Prescribed by: AMY BENSON on 10/22/18 1526 Sucralfate 1 Gm Tablet, 1 GM PO ACHS PRN for STOMACH UPSET, (Reported) Patient Home Medication List Home Medication List Reviewed: Yes Review of Systems Review of Systems Constitutional: see HPI EENTM: no symptoms reported Respiratory: no symptoms reported Cardiovascular: see HPI Gastrointestinal: no symptoms reported Genitourinary: see HPI : No Musculoskeletal: no symptoms reported Skin: no symptoms reported Psychiatric/Neurological: No Symptoms Reported Endocrine: No Symptoms Reported Hematologic/Lymphatic: See HPI Past Bdeclyv-Ogmnuo-Xopmmy Hx Past Med/Social Hx: Reviewed and Corrections made Patient Social History Alcohol Use: Denies Use Number of Drinks Today: AA Alcohol Beverage of Choice: Beer Recreational Drug Use: No Smoking Status: Current Everyday Smoker Type Used: Cigars 2nd Hand Smoke Exposure: Yes Recent Foreign Travel: No Contact w/Someone Who Travel: No Recent Infectious Disease Expo: No Recent Hopitalizations: No Immunizations Up To Date Tetanus Booster (TDap): More than 5yrs PED Vaccines UTD: Yes Seasonal Allergies Seasonal Allergies: Yes (MILD) Past Medical History Surgeries: Yes (WART REMOVALS; "CYST" REMOVALS FROM SKIN OF VARIOUS PARTS OF BODY) Amputation, Gallbladder Respiratory: Yes Asthma Currently Using CPAP: No Currently Using BIPAP: No Cardiac: Yes (SWELLING AT TIMES) Chronic Edema/Swelling, Hypertension Neurological: Yes Headaches /Migraines Last Menstrual Period: Jan 28, 2020 Reproductive Disorders: Yes Female Reproductive Disorders: Menstrual Problems, Polycystic Ovarian Dis Sexually Transmitted Disease: No HIV/AIDS: No Genitourinary: No Gastrointestinal: Yes (SANT[place] DISEASE-FATTY LIVER) Colitis, Gastroesophageal Reflux, Liver Disease/Jaundice ([place]), Diverticulosis (with history of diverticulitis), Ulcer Musculoskeletal: Yes (CHRONIC BILATERAL KNEE PAIN, chostrochrondritis) Chronic Back Pain Endocrine: Yes ("PRE" DIABETIC--DOES NOT CHECK BLOOD SUGAR; OBESITY) Diabetes, Non-Insulin dep Loss of Vision: Bilateral Hearing Impairment: Denies Cancer: No Did You Recieve Any Treatments: No Psychosocial: Yes Sleep Difficulties, Anxiety, Depression Integumentary: No Blood Disorders: No Adverse Reaction/Blood Tranf: No Family Medical History Alcoholism 19 FATHER 19 MOTHER Arthritis 19 MOTHER Asthma 19 MOTHER Cancer of mouth 19 FATHER Cataracts 19 MOTHER Dementia 19 MOTHER Diabetes mellitus Drug abuse 19 FATHER 19 MOTHER Fibrocystic disease of breast 19 MOTHER Headache disorder 19 MOTHER G8 SISTER Hypertension 19 MOTHER Respiratory disorder 19 FATHER 19 MOTHER No Pertinent Family Hx Physical Exam Vital Signs Vital Signs - First Documented 01/28/20 01/28/20 15:29 17:44 Temp 36.9 Pulse 85 Resp 20 B/P (MAP) 174/110 (131) Pulse Ox 100 O2 Delivery Room Air Capillary Refill : Less Than 3 Seconds Height, Weight, BMI Height: 5'4.00" Weight: 290lbs. 0.0oz. 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, no motor/sensory deficits, alert, normal mood/affect, oriented x 3 Skin: normal color, warm/dry Procedures/Interventions Suture Size: 4-0 Progress/Results/Core Measures Suspected Sepsis Recent Fever Within 48 Hours: No Infection Criteria Present: None New/Unexplained Altered Menta: No Sepsis Screen: No Definite Risk SIRS Temperature: Pulse: 85 Respiratory Rate: Laboratory Tests 01/28/20 16:05: White Blood Count 9.3 Blood Pressure 174 /110 Mean: 131 Laboratory Tests 01/28/20 16:05: INR Comment 0.9, Platelet Count 334 Results/Orders Lab Results My Orders Medications Given in ED Vital Signs/I&O Capillary Refill : Less Than 3 Seconds Blood Pressure Mean: 131 Progress Note : Progress Note Labs were reviewed and were unremarkable. Patient was given a 500 mL normal saline bolus because of her lightheadedness. Pain was treated with fentanyl and hydrocodone. Ultrasound was unremarkable. Patient was started on Provera and advised to follow-up with her women's health provider. Diagnostic Imaging Diagonstic Imaging: Ultrasound Plain Films/CT/US/NM/MRI: pelvis Comments NAME: RONA LONGO MED REC#: [id number] PT STATUS: DEP ER : 1980 PHYSICIAN: AMY BENSON APRN ADMIT DATE: 01/28/20/ER Signed Date of Exam:01/28/20 US NON OB PELVIS COMP/TRANSVAG PROCEDURE: US Non-ob pelvis comp/trans. TECHNIQUE: Multiple realtime grayscale images were obtained of the pelvis in various projections endovaginally. Transabdominal imaging was also performed. INDICATION: Menorrhagia. COMPARISON: There are no prior studies available for comparison. FINDINGS: The uterus is nongravid, retroverted, and not enlarged measuring 7.3 x 4.8 x 5.4 cm. The endometrial lining is slightly thickened measuring 7 mm (normal 5 mm or less). This finding is nonspecific. Correlation with the patient's menstrual cycle would be recommended. There is no focal mass involving the uterus to suggest a fibroid. The right ovary was identified and was unremarkable. The left ovary could not be clearly visualized. There is a small amount of free fluid in the cul-de-sac. This is nonspecific. This could be secondary to a mild inflammatory process or to the recent rupture of a small cyst. There is no solid pelvic mass noted. IMPRESSION: 1. There is a small amount of nonspecific free fluid in the cul-de-sac. 2. There is no acute pelvic abnormality noted otherwise and there is no sign of a pelvic mass. 3. The left ovary could not be identified. Dictated by: Dictated on workstation # [id number] Dict: 01/28/20 1658 Trans: 01/29/20 0857 [id number] Interpreted by: SOCORRO GREEN MD Electronically signed by: SOCORRO GREEN MD 01/29/20 0857 Departure Impression Primary Impression: Pelvic pain Additional Impression: Menorrhagia Qualified Codes: N92.1 - Excessive and frequent menstruation with irregular cycle Disposition: 01 HOME, SELF-CARE Condition: Improved Departure-Patient Inst. Decision time for Depature: 17:26 Referrals: CORBY WALTERS DO (PCP) Primary Care Physician JEISON FRANKS (Family) Primary Care Physician Patient Instructions: Acute Pelvic Pain Add. Discharge Instructions: You may continue using ibuprofen up to 800 mg every 8 hours as needed. Use the hydrocodone as prescribed for pain not controlled by ibuprofen. Take your first Provera dose this evening and then take it daily after that. Please follow-up with your women's health provider as soon as possible. Return to emergency room if you have worsening symptoms despite following these instructions. All discharge instructions reviewed with patient and/or family. Voiced understan nicole. Scripts Hydrocodone Bit/Acetaminophen (LORTAB 5 MG TABLET) 1 Each Tablet 1 TAB PO Q4-6HR for PAIN-MODERATE, #5 TAB Prov: JERZY PEÑALOZA MD 01/28/20 Medroxyprogesterone Acetate (Provera) 10 Mg Tablet 10 MG PO DAILY, #10 TAB Prov: JERZY PEÑALOZA MD 01/28/20 Copy Copies To 1: TYLER GAN MD, JOSHUA T MD Jan 28, 2020 17:31
[2020-01-28] MEDS ORDERED: ACHD5005 PO (17:32)
[2020-01-28 17:44] VITALS: BP 155/88
== END 2020-01-28 17:49 | disposition home or self-care (01) ==
LOC: EDUNIT# 15:02 → ER 15:04
DX: N92.0 Excessive and frequent menstruation with regular cycle (principal); J45.909 Unspecified asthma, uncomplicated; I10 Essential (primary) hypertension; K21.9 Gastro-esophageal reflux disease without esophagitis; E66.9 Obesity, unspecified; F32.9 Major depressive disorder, single episode, unspecified; F17.290 Nicotine dependence, other tobacco product, uncomplicated; Z88.5 Allergy status to narcotic agent; Z80.0 Family history of malignant neoplasm of digestive organs; Z68.42 Body mass index [BMI] 45.0-49.9, adult
CPT/HCPCS: 36415; 76830; 76856; 84443; 84703; 85025; 85610

== ENCOUNTER → 2020-02-07 | Outpatient (CLI) | payer OTHER ==
[~2020-02-07] MED LIST changes: +MEDR10TA PO
== END ==
LOC: RAD 10:53
PROVIDERS: ATTEND Registered Nurse
DX: Z12.31 Encounter for screening mammogram for malignant neoplasm of breast (principal); Z53.8 Procedure and treatment not carried out for other reasons

== ENCOUNTER → 2020-02-14 | Outpatient (CLI) | payer OTHER ==
--- NOTE | 2020-02-14 16:01 | Diagnostic Imaging Report ---
INDICATION: Bilateral breast lumps. CORRELATION is made with diagnostic mammogram earlier the same day. Sonographic interrogation of multiple sites of lumps bilateral breasts was performed. This correlates to the upper portions of both breasts. This also correlates to the 10 to 2:00 location of the right breast and 9 to 1:00 location of the left breast. No sonographic abnormality is seen. No solid or cystic mass is detected. IMPRESSION: BI-RADS Category 1 No sonographic abnormality is detected. ACR BI-RADS Category 1: Negative. Result letter will be mailed to the patient. Note: At least 10% of breast cancer is not imaged by mammography. Dictated by: Dictated on workstation # [id number]
--- NOTE | 2020-02-14 16:33 | Diagnostic Imaging Report ---
INDICATION: Bilateral breast lumps. COMPARISON: No prior studies are available for comparison. 2-D and 3-D bilateral diagnostic mammography was performed with CAD. BB markers were placed at the areas of palpable abnormality in both breasts. This corresponds with both the medial and lateral aspects of both breasts. No mass is identified. No suspicious microcalcifications are seen. Axillae are unremarkable. IMPRESSION: BI-RADS 0 No mammographic features suspicious for malignancy are identified. Even so, sonographic interrogation of the areas of palpable abnormality in both breasts is recommended and will be performed today. ACR BI-RADS Category 0: Incomplete. (Needs additional imaging evaluation). Result letter will be mailed to the patient. Note: At least 10% of breast cancer is not imaged by mammography. Dictated by: Dictated on workstation # [id number]
== END ==
LOC: RAD 14:00
PROVIDERS: ATTEND Nurse Practitioner Family
DX: N63.25 Unspecified lump in the left breast, overlapping quadrants (principal); N63.15 Unspecified lump in the right breast, overlapping quadrants; N64.52 Nipple discharge
CPT/HCPCS: 76642; 77066

== ENCOUNTER 2020-03-17 13:37 | Emergency (ER) | payer OTHER ==
[~2020-03-17] VITALS: Ht 162.6 cm; Wt 127.0 kg
[2020-03-17] MEDS ORDERED: NS IV 1000 ML 1,000 ML IV SCH (13:57)
[2020-03-17] MEDS ORDERED: ONDANSETRON 4 MG/2 ML (SDV) Z0FRAN IVP ONE (14:00)
[2020-03-17 14:02] LABS: BASOPHILS % (AUTO) 0 % (0-10); EOSINOPHILS # (AUTO) 0.4 10^3/uL (0.0-0.3); EOSINOPHILS % (AUTO) 5 % (0-10); HEMATOCRIT 45 % (35-52); HEMOGLOBIN 14.5 G/DL (11.5-16.0); LYMPHOCYTES % (AUTO) 26 % (12-44); MEAN CORPUSCULAR HEMOGLOBIN 30 PG (25-34); MEAN CORPUSCULAR HGB CONC 32 G/DL (32-36); MEAN CORPUSCULAR VOLUME 93 FL (80-99); MEAN PLATELET VOLUME 10.1 FL (7.4-10.4); MONOCYTES # (AUTO) 0.6 X 10^3 (0.0-1.0); MONOCYTES % (AUTO) 8 % (0-12); NEUTROPHILS # (AUTO) 4.7 X 10^3 (1.8-7.8); NEUTROPHILS % (AUTO) 60 % (42-75); PLATELET COUNT 318 10^3/uL (130-400); RED CELL DISTRIBUTION WIDTH 13.3 % (10.0-14.5); WHITE BLOOD COUNT 7.7 10^3/uL (4.3-11.0)
[2020-03-17 14:08] LABS: BILIRUBIN,URINE NEGATIVE (NEGATIVE); CLARITY,URINE CLEAR; COLOR,URINE YELLOW; GLUCOSE, URINE (UA) NEGATIVE (NEGATIVE); KETONES,URINE NEGATIVE (NEGATIVE); LEUKOCYTE ESTERASE ,URINE 1+ (NEGATIVE); NITRITE,URINE NEGATIVE (NEGATIVE); PROTEIN,URINE NEGATIVE (NEGATIVE)
[2020-03-17 14:16] LABS: BACTERIA,URINE MODERATE /HPF; RBC,URINE RARE /HPF
[2020-03-17 14:19] LABS: ALBUMIN 4.2 GM/DL (3.2-4.5); CHLORIDE 103 MMOL/L (98-107); SODIUM 138 MMOL/L (135-145)
[2020-03-17 14:20] LABS: AMYLASE 45 U/L (25-125); CALCIUM 8.5 MG/DL (8.5-10.1)
[2020-03-17 14:21] LABS: GLUCOSE 109 MG/DL (70-105); TOTAL PROTEIN 7.3 GM/DL (6.4-8.2)
[2020-03-17 14:23] LABS: BILIRUBIN,TOTAL 0.3 MG/DL (0.1-1.0); CARBON DIOXIDE 26 MMOL/L (21-32)
[2020-03-17 14:25] LABS: ALKALINE PHOSPHATASE 92 U/L (40-136); CREATININE SERUM 0.73 MG/DL (0.60-1.30); GFR ESTIMATED > 60
[2020-03-17 14:26] LABS: BUN/CREATININE RATIO 12
[2020-03-17 14:28] LABS: ALANINE AMINOTRANSFERASE 21 U/L (0-55)
--- NOTE | 2020-03-17 14:28 | ED GI ---
General Chief Complaint: Abdominal/GI Problems Stated Complaint: LOWER LEFT SIDE PAIN;N/D Nursing Triage Note: Pt amb to room #6 with c/o LLQ abd discomfort, nausea, vomiting, et diarrhea. Pt reports symptoms began on 03/14/20. Pt reports she has experienced x5 episodes of diarrhea and x1 episode of emesis on this day. Pt reports she did not take prescibed BP medication until upprox 0100 on this day. Pt reports hx diverticulitis. Pt denies cough, fever, or SOA. A&OX4. Sepsis Screen: No Definite Risk History of Present Illness Date Seen by Provider: Mar 17, 2020 Time Seen by Provider: 13:45 Initial Comments 39-year-old female presents with left lower abdominal pain. She states her symptoms began 3 days ago. She did have one episode of vomiting this morning. She's had diarrhea for 2 days, 5 episodes. She has a history of di verticulitis and had strawberries the other day which have caused her symptoms in the past. She has been clear liquid diet today. She has a history of hypertension, she did sleep in today and just her medicine 1 hour prior to arrival. Here PCP is out because of COVID 19 exposure. Timing/Duration: 2-3 Days Severity/Quality: Moderate Location: LLQ Radiation: No Radiation Associated Symptoms: Back Pain, Nausea/Vomiting (trace on the left) Allergies and Home Medications Allergies Coded Allergies: tramadol HCl (Verified Allergy, Mild, HIVES, Pt has received Lortab w/o issue, 09/12/17) Home Medications Atenolol 50 Mg Tablet, 75 MG PO HS, (Reported) TAKES 1 & 1/2 (50 MG) TABLETS Cephalexin 500 Mg Capsule, 500 MG PO TID Prescribed by: AMY BENSON on 10/21/18 1937 Cephalexin 500 Mg Capsule, 500 MG PO TID Prescribed by: AMY BENSON on 10/22/18 1526 Cetirizine HCl 10 Mg Tablet, 10 MG PO HS, (Reported) LAST FILLED 08/08/17 #30 Ciprofloxacin HCl 500 Mg Tablet, 500 MG PO Q12H, (Reported) FILLED 09/06/17 #14 FOR A 7 DAY THERAPY Ciprofloxacin HCl 500 Mg Tablet, 500 MG PO BID Prescribed by: AMY BENSON on 03/31/18 1322 Clonazepam 1 Mg Tablet, 0.5-1 MG PO BID PRN for ANXIETY, (Reported) TAKES 1/2-1 (1 MG) TABLET Fluticasone Propionate 16 Gm [place].susp, 1 SPRAY NSEACH DAILY, (Reported) LAST FILLED 06/28/17 #16GM Hydrochlorothiazide 25 Mg Tablet, 25 MG PO DAILY, (Reported) Hydrocodone Bit/Acetaminophen 1 Each Tablet, 1 TAB PO TID PRN for PAIN-MODERATE, (Reported) Hydrocodone Bit/Acetaminophen 1 Tab Tab, 1-2 EACH PO Q6H PRN for PAIN-MODERATE Prescribed by: HOSSEIN DEVLIN on 09/26/18 1209 Hydrocodone Bit/Acetaminophen 1 Each Tablet, 1 TAB PO Q4-6HR Prescribed by: JERZY CHA on 01/28/20 1732 Hydrocodone/Acetaminophen 1 Each Tablet, 1 EACH PO Q4M PRN for PAIN-SEVERE Prescribed by: AMY BENSON on 03/31/18 1322 Hydrocodone/Acetaminophen 1 Each Tablet, 1 EACH PO Q6H PRN for PAIN-MODERATE Prescribed by: AMY BENSON on 10/21/18 1937 Medroxyprogesterone Acetate 10 Mg Tablet, 10 MG PO DAILY Prescribed by: JERZY CHA on 01/28/20 1730 Metronidazole 500 Mg Tablet, 500 MG PO Q12H, (Reported) FILLED 09/06/17 #14 FOR A 7 DAY THERAPY Metronidazole 500 Mg Tablet, 500 MG PO TID Prescribed by: AMY BENSON on 03/31/18 1322 Montelukast Sodium 10 Mg Tablet, 10 MG PO HS, (Reported) LAST FILLED 08/08/17 #30 Ondansetron 8 Mg Tab.rapdis, 8 MG PO Q6H PRN for NAUSEA/VOMITING-1ST LINE Prescribed by: AMY BENSON on 03/31/18 1322 Ondansetron 4 Mg Tab.rapdis, 4 MG PO Q6H PRN for NAUSEA/VOMITING Prescribed by: HOSSEIN DEVLIN on 03/17/20 1430 Oxycodone HCl/Acetaminophen 1 Each Tablet, 1 EACH PO Q6H PRN for PAIN-MODERATE Prescribed by: AMY BENSON on 10/22/18 1526 Sucralfate 1 Gm Tablet, 1 GM PO ACHS PRN for STOMACH UPSET, (Reported) Sulfamethoxazole/Trimethoprim 1 Each Tablet, 1 EACH PO BID Prescribed by: HOSSEIN DEVLIN on 03/17/20 7023 Patient Home Medication List Home Medication List Reviewed: Yes Review of Systems Review of Systems Constitutional: no symptoms reported, see HPI Respiratory: No Symptoms Reported, See HPI; Denies Cough, Denies SOA at Rest Cardiovascular: No Symptoms Reported, See HPI; Denies Chest Pain Gastrointestinal: See HPI, Abdominal Pain (left lower quadrant), Diarrhea, Nausea, Vomiting Musculoskeletal: no symptoms reported, see HPI All Other Systems Reviewed Negative Unless Noted: Yes Past [id number] Hx Past Med/Social Hx: Reviewed Nursing Past Med/Soc Hx Patient Social History Alcohol Use: Denies Use Number of Drinks Today: AA Alcohol Beverage of Choice: Beer Recreational Drug Use: No Smoking Status: Current Everyday Smoker Type Used: Cigars 2nd Hand Smoke Exposure: Yes Recent Foreign Travel: No Contact w/Someone Who Travel: No Recent Infectious Disease Expo: No Recent Hopitalizations: No Immunizations Up To Date Tetanus Booster (TDap): More than 5yrs PED Vaccines UTD: Yes Seasonal Allergies Seasonal Allergies: Yes (MILD) Past Medical History Surgeries: Yes (WART REMOVALS; "CYST" REMOVALS FROM SKIN OF VARIOUS PARTS OF BODY) Amputation, Gallbladder Respiratory: Yes Asthma Currently Using CPAP: No Currently Using BIPAP: No Cardiac: Yes (SWELLING AT TIMES) Chronic Edema/Swelling, Hypertension Neurological: Yes Headaches /Migraines Reproductive Disorders: Yes Female Reproductive Disorders: Menstrual Problems, Polycystic Ovarian Dis Sexually Transmitted Disease: No HIV/AIDS: No Genitourinary: No Gastrointestinal: Yes (SANTORO DISEASE-FATTY LIVER) Colitis, Gastroesophageal Reflux, Liver Disease/Jaundice, Diverticulosis, Ulcer Musculoskeletal: Yes (CHRONIC BILATERAL KNEE PAIN, chostrochrondritis) Chronic Back Pain Endocrine: Yes ("PRE" DIABETIC--DOES NOT CHECK BLOOD SUGAR; OBESITY) Diabetes, Non-Insulin dep Loss of Vision: Bilateral Hearing Impairment: Denies Cancer: No Did You Recieve Any Treatments: No Psychosocial: Yes Sleep Difficulties, Anxiety, Depression Integumentary: No Blood Disorders: No Adverse Reaction/Blood Tranf: No Family Medical History Alcoholism 19 FATHER 19 MOTHER Arthritis 19 MOTHER Asthma 19 MOTHER Cancer of mouth 19 FATHER Cataracts 19 MOTHER Dementia 19 MOTHER Diabetes mellitus Drug abuse 19 FATHER 19 MOTHER Fibrocystic disease of breast 19 MOTHER Headache disorder 19 MOTHER G8 SISTER Hypertension 19 MOTHER Respiratory disorder 19 FATHER 19 MOTHER No Pertinent Family Hx Physical Exam Vital Signs Vital Signs - First Documented 4/20/20 13:45 Temp 36.8 Pulse 96 Resp 18 B/P (MAP) 179/109 (132) Pulse Ox 97 O2 Delivery Room Air Capillary Refill : Less Than 3 Seconds Height/Weight/BMI Height: 5'4.00" Weight: 290lbs. 0.0oz. [id number]; 48.00 BMI Method:Stated General Appearance: WD/WN, no apparent distress HEENT: PERRL/EOMI, normal ENT inspection, TMs normal, pharynx normal Neck: non-tender, full range of motion, supple, normal inspection Respiratory: chest non-tender, lungs clear, normal breath sounds Cardiovascular: normal peripheral pulses, regular rate, rhythm Gastrointestinal: normal bowel sounds, soft, distended; No rebound; tenderness (left lower quadrant) Back: normal inspection, CVA tenderness (L) Neurologic/Psychiatric: no motor/sensory deficits, alert, normal mood/affect, oriented x 3 Skin: normal color, warm/dry Procedures/Interventions Suture Size: 4-0 Progress/Results/Core Measures Results/Orders Lab Results Laboratory Tests Test 03/17/20 13:54 03/17/20 14:03 Range/Units White Blood Count 7.7 4.3-11.0 10^3/uL Red Blood Count 4.86 4.35-5.85 10^6/uL Hemoglobin 14.5 11.5-16.0 G/DL Hematocrit 45 35-52 % Mean Corpuscular Volume 93 80-99 FL Mean Corpuscular Hemoglobin 30 25-34 PG Mean Corpuscular Hemoglobin Concent 32 32-36 G/DL Red Cell Distribution Width 13.3 10.0-14.5 % Platelet Count 318 130-400 10^3/uL Mean Platelet Volume 10.1 7.4-10.4 FL Neutrophils (%) (Auto) 60 42-75 % Lymphocytes (%) (Auto) 26 12-44 % Monocytes (%) (Auto) 8 0-12 % Eosinophils (%) (Auto) 5 0-10 % Basophils (%) (Auto) 0 0-10 % Neutrophils # (Auto) 4.7 1.8-7.8 X 10^3 Lymphocytes # (Auto) 2.0 1.0-4.0 X 10^3 Monocytes # (Auto) 0.6 0.0-1.0 X 10^3 Eosinophils # (Auto) 0.4 H 0.0-0.3 10^3/uL Basophils # (Auto) 0.0 0.0-0.1 10^3/uL Sodium Level 138 135-145 MMOL/L Potassium Level 4.0 3.6-5.0 MMOL/L Chloride Level 103 98-107 MMOL/L Carbon Dioxide Level 26 21-32 MMOL/L Anion Gap 9 5-14 MMOL/L Blood Urea Nitrogen 9 7-18 MG/DL Creatinine 0.73 0.60-1.30 MG/DL Estimat Glomerular Filtration Rate > 60 BUN/Creatinine Ratio 12 Glucose Level 109 H 70-105 MG/DL Calcium Level 8.5 8.5-10.1 MG/DL Corrected Calcium 8.3 L 8.5-10.1 MG/DL Total Bilirubin 0.3 0.1-1.0 MG/DL Aspartate Amino Transf (AST/SGOT) 19 5-34 U/L Alanine Aminotransferase (ALT/SGPT) 21 0-55 U/L Alkaline Phosphatase 92 40-136 U/L C-Reactive Protein High Sensitivity 1.45 H 0.00-0.50 MG/DL Total Protein 7.3 6.4-8.2 GM/DL Albumin 4.2 3.2-4.5 GM/DL Amylase Level 45 25-125 U/L Lipase 34 8-78 U/L Urine Color YELLOW Urine Clarity CLEAR Urine pH 6.0 5-9 Urine Specific [place] >=1.030 1.016-1.022 Urine Protein NEGATIVE NEGATIVE Urine Glucose (UA) NEGATIVE NEGATIVE Urine Ketones NEGATIVE NEGATIVE Urine Nitrite NEGATIVE NEGATIVE Urine Bilirubin NEGATIVE NEGATIVE Urine Urobilinogen 0.2 < = 1.0 MG/DL Urine Leukocyte Esterase 1+ H NEGATIVE Urine RBC (Auto) TRACE-L NEGATIVE Urine RBC RARE /HPF Urine WBC 10-25 H /HPF Urine Squamous Epithelial Cells 2-5 /HPF Urine Crystals NONE /LPF Urine Bacteria MODERATE H /HPF Urine Casts NONE /LPF Urine Mucus SMALL H /LPF Urine Culture Indicated YES My Orders Orders - HOSSEIN DEVLIN Ua Culture If Indicated (03/17/20 13:46) Urine Bedside (03/17/20 13:46) Amylase (03/17/20 13:57) Cbc With Automated Diff (03/17/20 13:57) Comprehensive Metabolic Panel (03/17/20 13:57) Hs C Reactive Protein (03/17/20 13:57) Lipase (03/17/20 13:57) Ondansetron Injection (Zofran Injectio (03/17/20 14:00) Ed Iv/Invasive Line Start (03/17/20 13:57) Ns Iv 1000 Ml (Sodium Chloride 0.9%) (03/17/20 13:57) Urine Culture (03/17/20 14:03) Ketorolac Injection (Toradol Injection) (03/17/20 15:01) Clonidine Tablet (Catapres Tablet) (03/17/20 15:15) Medications Given in ED Current Medications Medications Dose Ordered Sig/Nemo Route Start Time Stop Time Status Last Admin Dose Admin Clonidine HCl 0.1 mg ONCE ONCE PO 03/17/20 15:15 03/17/20 15:14 DC 03/17/20 15:09 0.1 MG Ondansetron HCl 8 mg ONCE ONCE IVP 03/17/20 14:00 03/17/20 14:01 DC 03/17/20 14:05 8 MG Vital Signs/I&O 03/17/20 03/17/20 13:45 15:14 Temp 36.8 36.8 Pulse 96 75 Resp 18 19 B/P (MAP) 179/109 (132) 181/113 (132) Pulse Ox 97 98 O2 Delivery Room Air Room Air Blood Pressure Mean: 132 Progress Progress Note : Time: 13:45 Progress Note Patient seen and evaluated, will obtain labs, normal saline 1 L per IV, Zofran 8 mg for nausea. 1430 B/P down to 150s/90s. 1445 WBC 7.7, labs demonstrate UTI. No history of renal calculi. No further N/V/D. Will give Toradol for pain. 1500 discharge instructions and return precautions to the patient. Departure Impression Primary Impression: UTI (urinary tract infection) Qualified Codes: N30.01 - Acute cystitis with hematuria Additional Impressions: Abdominal pain Qualified Codes: R10.32 - Left lower quadrant pain Vomiting Qualified Codes: R11.2 - Nausea with vomiting, unspecified Diarrhea Qualified Codes: R19.7 - Diarrhea, unspecified Disposition: 01 HOME, SELF-CARE Condition: Improved Departure-Patient Inst. Decision time for Depature: 15:00 Referrals: CORBY WALTERS DO (PCP) Primary Care Physician NUZHAT FRANKS (Family) Primary Care Physician Patient Instructions: Acute Abdomen (Belly Pain), Adult (DC), Nausea and Vomiting, Adult (DC), Urinary Tract Infection, Adult (DC) Add. Discharge Instructions: Clear liquid diet for the next 6-8 hours then bland diet as tolerated. Alternate between Tylenol 650 mg and ibuprofen 600 mg every 4 hours for pain or fever. Follow-up with your primary care provider if symptoms are not improving or worsen. Take your antibiotics as prescribed. Return to the emergency department for new, urgent health care needs. All discharge instructions reviewed with patient and/or family. Voiced understanding. Scripts Ondansetron (Ondansetron Odt) 4 Mg Tab.rapdis 4 MG PO Q6H PRN for NAUSEA/VOMITING, #8 TAB 0 Refills Prov: HOSSEIN DEVLIN 03/17/ Sulfamethoxazole/Trimethoprim (Bactrim Ds Tablet) 1 Each Tablet 1 EACH PO BID, #14 TAB 0 Refills Prov: HOSSEIN DEVLIN 03/17/20 HOSSEIN DEVLIN Mar 17, 2020 14:28
[2020-03-17 14:29] LABS: LIPASE 34 U/L (8-78)
[2020-03-17] MEDS ORDERED: SULF1TAB35 PO (14:30)
[2020-03-17] MEDS ORDERED: ONDA4TAB11 PO (14:30)
--- OUTSIDE RECORDS SUMMARY | 2020-03-17 14:46 | XMS REPORT ---
Author Author Fatimah FRANKS Organization [facility] [address] Address [address] [place] [address] Care Team Providers Care Sanitation Worker Name Role Phone NUZHAT FRANKS Unavailable PROBLEMS Type Condition ICD9-CM Code HPH90-GK Code Onset Dates Condition S tatus SNOMED Code Problem Diverticulitis of large inte simon without perforation or abscess without bleeding K57.32 Active 8498918 Problem Elevated LDL cholesterol level E78.0 Active 379198989 Problem Migraine with aura and without status migrainosu s, not intractable G43.109 Active 4426151 Problem Insomnia, unspecified type G47.00 Act nathan 793652548 Problem RUQ abdominal pain R10.11 Active 3 96153641 Problem Biliary dyskinesia K82.8 Active 1 54421745 Problem Lumbago with sciatica, right side M54.41 Active 268705392 Problem Diverticulitis of large inte simon, unspecified bleeding status, unspecified complication status K57.32 Active 2794967 Problem Morbid obesity E66.01 Active 93441 6002 Problem Sleep apnea, unspecified type G47.30 Active 09140535 Problem BMI 45.0-49.9, adult Z68.42 Active 367870951 Problem Mild intermittent asthma without complication J45. 20 Active 103260146 Problem Tobacco abuse Z72.0 Active 214629 000 Problem Essential (primary) hypertension I10 Active 89119441 Problem Menorrhagia with irregular cycle N92.1 Active 587454852 Problem Other chronic pain G89.29 Active 8 3650285 Problem CAP (community acquired pneumonia) J18.9 Active 052091249 Problem Anxiety F41.9 Active 04834375 Problem Obstructive sleep apnea syndrome G47.33 Active 42243998 Problem Dysthymia F34.1 Active 17022282 Problem Diverticulitis K57.92 Active 73441 6006 Problem Exacerbation of asthma, unsp ecified asthma severity, unspecified whether persistent J45.901 Active 085460565 ALLERGIES No Information ENCOUNTERS Encounter Location Date Diagnosis [address] [address] 0 5 Jan, [address] [address] 1 4 Dec, [address] [address] 1 4 Dec, 2019 Menorrhagia with irregular cycle N92.1 ; Screening breast examination Z12.39 and Essential (primary) hypertension I10 [address] [address] 0 5 Dec, 2019 Essential (primary) hypertension I10 ; Dysthymia F34.1 and Lumbago with sciatica, right side M54.[address] [id number] Oct, Essential (primary) hypertension I10 ; Lumbago with sciatica, right side M54.41 ; Encounter for immunization Z23 ; Dysthymia F34.1 and Mild intermittent asthma without complication J45.20 [facility] [id number] [address] Aug, First degree burn T30.0 and Partial thickness burn of finger of right hand, initial encounter T23.[address] [place] [id number] [place] [id number] Feb, Dysthymia F34.1 ; Lumbago with sciatica, right side M54.41 and Morbid obesity E66.[address] [id number] Feb, Exacerbation of asthma, unspecified asthma severity, unspecified whether persistent J45.901 ; Thrush B37.0 and Morbid obesity E66.[address] [id number] Feb, Morbid obesity E66.01 ; Essential (primary) hypertension I10 ; Lumbago with sciatica, right side M54.41 and Dysthymia F34.[address] [id number] Dec, BMI 45.0-49.9, adult Z68.42 ; Phantom pain G54.6 ; Anxiety F41.9 and Dysthymia F34.[address] [id number] Nov, BMI 45.0-49.9, adult Z68.42 ; 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 [address] [id number] Oct, Dental examination Z01.[address] [id number] Sep, [facility] [id number] [place] [id number] Sep, Dental examination Z01.20 and Caries K02 .[address] [id number] Sep, Dysthymia F34.1 and Diverticulitis K57.[address] [id number] Sep, [address] [facility] [place] [id number] Aug, Essential (primary) hypertension I10 ; D yspnea on exertion R06.09 ; Obstructive sleep apnea syndrome G47.33 and Tobacco abuse Z72.[address] [id number] Aug, BMI 45.0-49.9, adult Z68.42 and Diverticulitis K57.[address] [id number] Jul, Lumbago with sciatica, right side M54.41 and Dysthymia F34.[address] [id number] Jul, BMI 45.0-49.9, adult Z68.42 ; Dysthymia F34.1 ; Lumbago with sciatica, right side M54.41 and Essential (primary) hypertension I10 [address] [id number] Jun, BMI 45.0-49.9, adult Z68.42 ; Essential (primary) hypertension I10 ; Dysthymia F34.1 ; Lumbago with sciatica, right side M54.41 and Mild intermittent asthma with acute exacerbation J45.21 [facility] [address] [facility] [id number] Jun, [facility] [address] [facility] [id number] [address] [place] [address] Jun, Chest congestion R09.89 ; Co ugh R05 and BMI 45.0-49.9, adult Z68.[address] [employer] [place] [id number] Jun, Dental examination Z01.20 [address] [id number] May, Essential (primary) hypertension I10 ; Lumbago with sciatica, right side M54.41 ; Anxiety F41.9 and BMI 45.0-49.9, adult Z68.[address] [employer] [place] [id number] May, Essential (primary) hypertension I10 ; O ther chest pain R07.89 ; Dyspnea on exertion R06.09 ; Tobacco abuse Z72.0 ; Sleep apnea, unspecified type G47.30 ; BMI 45.0-49.9, adult Z68.42 and Morbid obesity E66.01 [facility] [address] [facility] [place] [address] May, BMI 45.0-49.9, adult Z68.[address] [place] [address] [id number] May, BMI 45.0-49.9, adult Z68.42 ; Lumbago with sciatica, right side M54.41 ; Anxiety F41.9 and Essential (primary) hypertension I10 [facility] [address] [facility] [place] [address] Apr, [facility] [id number] [place] [id number] Apr, Anxiety F41.9 [facility] [address] [id number] Apr, Anxiety F41.9 [facility] [address] [address] [id number] Apr, [facility] [id number] [place] [id number] Apr, Dental examination Z01.20 [facility] [address] [id number] Apr, Anxiety F41.[address] [address] [id number] Apr, Anxiety F41.9 and Lumbago with sciatica, right side M54.41 [facility] [place] [address] [id number] March, Anxiety F41.[address] [facility] [address] [id number] March, Diverticulitis of large intestine, unspecified bleeding status, unspecified complication status K57.32 ; Anxiety F41.9 and Essential (primary) hypertension I10 [facility] [address] [id number] March, RUQ abdominal pain R10.11 [facility] [address] [facility] [id number] [address] [place] [address] Feb, Wheezing on auscultation R06 .[address] [facility] [address] [id number] Feb, Anxiety F41.9 [facility] [address] [id number] Feb, [facility] [address] [id number] Jan, BMI 50.0-59.9, adult Z68.43 ; Anxiety F41.9 ; Chest pain, unspecified type R07.9 and Essential (primary) hypertension I10 [address] [id number] Jan, BMI 45.0-49.9, adult Z68.42 ; Morbid obe sity E66.01 ; Chest pain, non- cardiac R07.89 ; Anxiety F41.9 ; Essential (primary) hypertension I10 and Tobacco abuse Z72.0 [address] [id number] Jan, Essential (primary) hypertension I10 [address] [id number] Dec, Essential (primary) hypertension I10 ; Migraine with aura and without status migrainosus, not intractable G43.109 ; Viral syndrome B34.9 and Lumbago with sciatica, right side M54.[address] [id number] Nov, BMI 45.0-49.9, adult Z68.42 ; Migraine with aura and without status migrainosus, not intractable G43.109 and Essential (primary) hypertension I10 [address] [id number] Nov, Essential (primary) hypertension I10 [address] [id number] Nov, BMI 45.0-49.9, adult Z68.42 ; Essential (primary) hypertension I10 ; Anxiety F41.9 ; Lumbago with sciatica, right side M54.41 and Other chronic pain G89.[address] [id number] Nov, [address] [id number] Aug, RUQ abdominal pain R10.[address] [id number] Aug, Essential (primary) hypertension I10 and Anxiety F41.9 [place] [id number] [place] [id number] May, Essential (primary) hypertension I10 and Anxiety F41.[address] [id number] March, Diverticulitis of large intestine, unspecified bleeding status, unspecified complication status K57.32 [facility] [address] [facility] [place] [address] March, [address] [id number] March, [address] [id number] March, Chest wall pain R07.89 and Dysuria R30.[address] [id number] March, Anxiety F41.[address] [id number] Feb, Biliary dyskinesia K82.[address] [id number] Feb, Biliary dyskinesia K82.[address] [id number] Jan, Essential (primary) hypertension I10 and RUQ abdominal pain R10.[address] [id number] Jan, Essential (primary) hypertension I10 and Anxiety F41.[address] [id number] Dec, Essential (primary) hypertension I10 [address] [id number] Nov, Migraine with aura and without status migrainosus, not intractable G43.109 and Essential (primary) hypertension I10 [address] [id number] Nov, Anxiety F41.9 ; Migraine with aura and without status migrainosus, not intractable G43.109 and Insomnia, unspecified type G47.[address] [id number] Oct, Migraine with aura and without status migrainosus, not intractable G43.[address] [id number] Oct, Anxiety F41.9 and Essential (primary) hypertension I10 [place] [address] [address] Oct, [place] [address] [address] Sep, [address] [id number] Sep, Diverticulitis of large intestine without perforation or abscess without bleeding K57.32 and Anxiety F41.[address] [id number] Aug, Diverticulitis of large intestine without perforation or abscess without bleeding K57.32 [place] [address] [address] Aug, [address] [id number] Aug, [place] [address] [address] Aug, [address] [id number] Aug, [address] [id number] Jul, Ingrown left big toenail L60.[address] [id number] Jul, [address] [id number] Jul, Ingrowing toenail of right foot L60.[address] [id number] Apr, [address] [id number] 10 Apr, 2016 RUQ abdominal pain R10.11 ; Fatty liver disease, nonalcoholic K76.0 ; Hx of hyperglycemia Z86.39 ; Elevated alanine aminotransferase (ALT) level R74.0 ; Elevated LDL cholesterol level E78.0 and Prediabetes R73.[address] [id number] 08 Apr, 2016 RUQ abdominal pain R10.11 ; Mild persistent asthma without complication J45.30 ; Anxiety F41.9 and Essential (primary) hypertension I10 [address] [id number] March, Wheezing R06.2 and Cough R05 [address] [id number] March, [address] [id number] March, [address] [id number] March, Acute severe exacerbation of asthma J45.51 ; Cough R05 and Cough headache G44.[address] [id number] 18 Feb, 2016 Mild intermittent asthma with acute exacerbation J45.21 and Transient insomnia F51.[address] [id number] Feb, Pigmented skin lesion of uncertain nature L81.[address] [id number] 07 Feb, 2016 Anxiety F41.9 and Essential (primary) hypertension I10 [address] [id number] Jan, [address] [id number] 23 Jan, 2016 Routine gynecological examination Z01.419 and Encounter for Papanicolaou smear for cervical cancer screening Z12.[address] [id number] 07 Jan, 2016 Essential (primary) hypertension I10 and Anxiety F41.9 [address] [id number] Dec, Essential (primary) hypertension I10 and Anxiety F41.9 [facility] [place] [id number] [place] [id number] Nov, Essential (primary) hypertension I10 [facility] [id number] [place] [id number] Aug, [facility] [address] [id number] Aug, CAP (community acquired pneumonia) J18.9 [facility] [place] [id number] [place] [address] [id number] Aug, CAP (community acquired pneumonia) J18.[address] [facility] [place] [address] [id number] [id number] Aug, CAP (community acquired pneumonia) J18.9 [facility] [place] [id number] [place] [address] [id number] Aug, CAP (community acquired pneumonia) J18.9 and Essential (primary) hypertension I10 [facility] [place] [id number] [place] [address] [id number] Aug, CAP (community acquired pneumonia) J18.9 [facility] [address] [address] Apr, [facility] [address] [address] Feb, [facility] [address] [address] Feb, [facility] [place] [id number] [place] [id number] Jan, [facility] [address] [address] Jan, [facility] [address] [address] Nov, [facility] [address] [id number] Nov, [facility] [address] [facility] [place] [address] Nov, [facility] [address] [id number] [id number] Oct, [facility] [address] [facility] [place] [address] Oct, [facility] [address] [facility] [id number] Sep, [facility] [id number] [place] [address] Sep, [facility] [address] [id number] [id number] Jun, [facility] [id number] [place] [address] Jun, [facility] [id number] [id number] Jun, [facility] [place] [facility] [id number] [place] [address] Jun, [facility] [id number] [id number] May, [facility] [id number] [place] [address] May, [facility] [id number] [id number] Dec, [facility] [address] [facility] [place] [address] Dec, [facility] [id number] [id number] Feb, [facility] [address] [facility]757[facility] [id number] Feb, [facility] [address] [id number] [id number] 17 Feb, 2013 [facility] [address] [facility] [place] [address] 16 Feb, 2013 [facility] [address] [facility]757[facility] [id number] 15 Feb, 2013 [facility] [address] [facility] [place] [id number] 15 Feb, 2013 [facility] [address] [facility] [place] [address] 14 Feb, 2013 [facility] [id number] [place] [address] 13 Feb, 2013 [facility] [id number] [place] [address] 12 Feb, 2013 [facility] [address] [facility]757[facility] [id number] 10 Feb, 2013 [facility] [address] [facility]07757[facility] [id number] Feb, [facility] [address] [facility]757[facility] [id number] Jan, [facility] [address] [facility]757[facility] [id number] Nov, [facility] [address] [id number] Nov, [facility] [id number] [place] [address] Oct, [facility] [id number] [place] [address] Apr, [facility] [id number] [place] [address] Dec, [facility] [id number] [place] [address] Nov, [facility] [id number] [place] [address] Oct, [facility] [id number] [place] [address] Oct, [facility] [id number] [place] [address] Sep, [facility] [id number] [place] [address] Sep, [facility] [id number] [place] [address] Sep, IMMUNIZATIONS No Known Immunizations SOCIAL HISTORY Never Assessed REASON FOR VISIT PLAN OF CARE VITAL SIGNS Height 66 in 2014-01-24 Weight 286 lbs 2014-01-24 Temperature 98.4 degrees Fahrenheit 2014-01-24 Heart Rate 88 bpm 2014-01-24 Respiratory Rate 20 2014-01-24 Blood pressure systolic 142 mmHg 2014-01-24 Blood pressure diastolic 78 mmHg 2014-01-24 MEDICATIONS Unknown Medications RESULTS No Results PROCEDURES No Known procedures INSTRUCTIONS MEDICATIONS ADMINISTERED No Known Medications MEDICAL (GENERAL) HISTORY Type Description Date Medical History hypertension Medical History asthma Medical History CT 08/2016 ED-sigmoid divert iculitis, hepatic steatosis, stable bilateral low density adrenal adenomas Medical History GERD Medical History IBSD Medical History sleep apnea Surgical History cholecystectomy 03/24/17 Surgical History removed left middle and pointer finger a fter being crushed 09/2018 Hospitalization History Diverticulitis[facility] 08/2016 Hospitalization History Generalized anxiety disorder-[facility] 2015 Hospitalization History Diverticulitis[facility] Left AMA 04/06/17 Hospitalization History ER visit for migraine 08/2017 Hospitalization History ER visit for chest pain 01/2018
--- OUTSIDE RECORDS SUMMARY | 2020-03-17 14:47 | XMS REPORT ---
Author Author Fatimah Reed Organization [facility] Address [address] [place] [address] Care Team Providers Care Powerhouse Attendant Name Role Phone BINH Reed Unavailable PROBLEMS Type Condition ICD9-CM Code LVN73-SP Code Onset Dates Condition S tatus SNOMED Code Problem Anxiety F41.9 Active 24350405 Problem Essential (primary) hypertension I10 Active 66146663 Problem Diverticulitis of large inte simon without perforation or abscess without bleeding K57.32 Active 2371800 Problem Elevated LDL cholesterol level E78.0 Active 548611560 Problem Migraine with aura and without status migrainosu s, not intractable G43.109 Active 4353614 Problem Insomnia, unspecified type G47.00 Act nathan 403309860 Problem RUQ abdominal pain R10.11 Active 3 41390118 Problem Biliary dyskinesia K82.8 Active 1 85810478 Problem Other chronic pain G89.29 Active 8 5435632 Problem Tobacco abuse Z72.0 Active 087900 000 Problem Morbid obesity E66.01 Active 14633 6002 Problem Diverticulitis K57.92 Active 65736 6006 Problem Lumbago with sciatica, right side M54.41 Active 653612661 Problem Exacerbation of asthma, unsp ecified asthma severity, unspecified whether persistent J45.901 Active 748694421 Problem Diverticulitis of large inte simon, unspecified bleeding status, unspecified complication status K57.32 Active 2447948 Problem CAP (community acquired pneumonia) J18.9 Active 593733414 Problem Sleep apnea, unspecified type G47.30 Active 40814300 Problem BMI 45.0-49.9, adult Z68.42 Active 919445347 Problem Obstructive sleep apnea syndrome G47.33 Active 74537169 Problem Dysthymia F34.1 Active 01173272 ALLERGIES No Information ENCOUNTERS Encounter Location Date Diagnosis [facility] [address] [facility] [id number] [place] [id number] Feb, Dysthymia F34.1 ; Lumbago with sciatica, right side M54.41 and Morbid obesity E66.01 [facility] [address] [id number] [place] [id number] Feb, Exacerbation of asthma, unspecified asth ma severity, unspecified whether persistent J45.901 ; Thrush B37.0 and Morbid obesity E66.01 [facility] [address] [id number] [place] [id number] Feb, Morbid obesity E66.01 ; Essential (prima ry) hypertension I10 ; Lumbago with sciatica, right side M54.41 and Dysthymia F34.1 [facility] [address] [id number] [place] [id number] Dec, BMI 45.0-49.9, adult Z68.42 ; Phantom pa in G54.6 ; Anxiety F41.9 and Dysthymia F34.1 [facility] [id number] [place] [address], [place] [id number] Nov, BMI 45.0-49.9, adult Z68.42 ; 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, 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 ; Dysthymia F34.1 ; Anxiety F41.9 and Essential (primary) hypertension I10 [facility] [address] [id number] [place] [id number] Oct, Essential (primary) hypertension I10 [facility] [address] [id number] [place] [address] [id number] Oct, Dental examination Z01.20 [facility] [address] [id number] [place] [id number] Sep, [facility] [address] [id number] [place] [address] [id number] Sep, Dental examination Z01.20 an d Caries K02.9 [facility] [address] [id number] [place] [id number] Sep, Dysthymia F34.1 and Diverticulitis K57.9 2 [facility] [place] [address] [facility] [id number] [place] [id number] Sep, [facility] [address] [id number] [place] [id number] Aug, Essential (primary) hypertension I10 ; D yspnea on exertion R06.09 ; Obstructive sleep apnea syndrome G47.33 and Tobacco abuse Z72.0 [facility] [place] [address] [facility] [id number] [place] [id number] Aug, BMI 45.0-49.9, adult Z68.42 and Divertic ulitis K57.92 [facility] [address] [facility] [id number] [place] [id number] Jul, Lumbago with sciatica, right side M54.41 and Dysthymia F34.1 [facility] [place] [address] [id number] [place] [id number] Jul, BMI 45.0-49.9, adult Z68.42 ; Dysthymia F34.1 ; Lumbago with sciatica, right side M54.41 and Essential (primary) hypertension I10 [facility] [place] [id number] [place] [id number] Jun, BMI 45.0-49.9, adult Z68.42 ; Essential (primary) hypertension I10 ; Dysthymia F34.1 ; Lumbago with sciatica, right side M54.41 and Mild intermittent asthma with acute exacerbation J45.21 [facility] [address] [facility] [id number] [place] [id number] Jun, [facility] [address] [facility] [id number] [address] [address] Jun, Chest congestion R09.89 ; Co ugh R05 and BMI 45.0-49.9, adult Z68.42 [facility] [address] [id number] [place] [id number] Jun, Dental examination Z01.20 [facility] [address] [facility] [id number] [place] [id number] May, Essential (primary) hypertension I10 ; L umbago with sciatica, right side M54.41 ; Anxiety F41.9 and BMI 45.0-49.9, adult Z68.42 [facility] [address] [id number] [place] [id number] May, Essential (primary) hypertension I10 ; O ther chest pain R07.89 ; Dyspnea on exertion R06.09 ; Tobacco abuse Z72.0 ; Sleep apnea, unspecified type G47.30 ; BMI 45.0-49.9, adult Z68.42 and Morbid obesity E66.01 [facility] [address] [facility] [id number] [address] [address] May, BMI 45.0-49.9, adult Z68.42 [facility] [place] [address] [id number] [place] [id number] May, BMI 45.0-49.9, adult Z68.42 ; Lumbago wi th sciatica, right side M54.41 ; Anxiety F41.9 and Essential (primary) hypertension I10 [facility] [address] [facility] [id number] [address] [address] Apr, [facility] [place] [address] [id number] [place] [id number] Apr, Anxiety F41.9 [facility] [place] [address] [id number] [place] [id number] Apr, Anxiety F41.9 [facility] [place] [address] [id number] [place] [id number] Apr, [facility] [place] [address] [facility] [address] [id number] [place] [id number] Apr, Dental examination Z01.20 [facility] [place] [address] [id number] [place] [id number] Apr, Anxiety F41.9 [facility] [place] [address] [id number] [place] [id number] Apr, Anxiety F41.9 and Lumbago with sciatica, right side M54.41 [facility] [address] [facility] [id number] [place] [id number] March, Anxiety F41.9 [facility] [address] [facility] [id number] [place] [id number] March, Diverticulitis of large intestine, unspe cified bleeding status, unspecified complication status K57.32 ; Anxiety F41.9 and Essential (primary) hypertension I10 [facility] [address] [facility] [id number] [place] [id number] March, RUQ abdominal pain R10.11 [facility] [address] [facility] [id number] [address] [address] Feb, Wheezing on auscultation R06 .2 [facility] [address] [facility] [id number] [place] [id number] Feb, Anxiety F41.9 [facility] [address] [facility] [id number] [place] [id number] Feb, [facility] [place] [address] [facility] [id number] [place] [id number] Jan, BMI 50.0-59.9, adult Z68.43 ; Anxiety F4 1.9 ; Chest pain, unspecified type R07.9 and Essential (primary) hypertension I10 [facility] [address] [id number] [place] [id number] Jan, BMI 45.0-49.9, adult Z68.42 ; Morbid obe sity E66.01 ; Chest pain, non- cardiac R07.89 ; Anxiety F41.9 ; Essential (primary) hypertension I10 and Tobacco abuse Z72.0 [facility] [address] [id number] [place] [id number] Jan, Essential (primary) hypertension I10 [facility] [address] [facility] [id number] [place] [id number] Dec, Essential (primary) hypertension I10 ; M igraine with aura and without status migrainosus, not intractable G43.109 ; Viral syndrome B34.9 and Lumbago with sciatica, right side M54.41 [facility] [place] [address] [id number] [place] [id number] Nov, BMI 45.0-49.9, adult Z68.42 ; Migraine w ith aura and without status migrainosus, not intractable G43.109 and Essential (primary) hypertension I10 [facility] [place] [address] [id number] [place] [id number] Nov, Essential (primary) hypertension I10 [facility] [place] [address] [id number] [place] [id number] Nov, BMI 45.0-49.9, adult Z68.42 ; Essential (primary) hypertension I10 ; Anxiety F41.9 ; Lumbago with sciatica, right side M54.41 and Other chronic pain G89.29 [facility] [place] [address] [id number] [place] [id number] Nov, [facility] [place] [address] [id number] [place] [id number] Aug, RUQ abdominal pain R10.11 [facility] [place] [address] [id number] [place] [id number] Aug, Essential (primary) hypertension I10 and Anxiety F41.9 [facility] [place] [address] [id number] [place] [id number] May, Essential (primary) hypertension I10 and Anxiety F41.9 [facility] [place] [id number] [place] [id number] March, Diverticulitis of large intestine, unspe cified bleeding status, unspecified complication status K57.32 [facility] [address] [facility] [id number] [address] [place] [address] March, [facility] [place] [address] [facility] [id number] [place] [id number] March, [facility] [place] [address] [id number] [place] [id number] March, Chest wall pain R07.89 and Dysuria R30.0 [facility] [place] [address] [id number] [place] [id number] March, Anxiety F41.9 [facility] [place] [address] [id number] [place] [id number] Feb, Biliary dyskinesia K82.8 [facility] [place] [address] [id number] [place] [id number] Feb, Biliary dyskinesia K82.8 [facility] [place] [address] [id number] [place] [id number] Jan, Essential (primary) hypertension I10 and RUQ abdominal pain R10.11 [facility] [place] [address] [id number] [place] [id number] Jan, Essential (primary) hypertension I10 and Anxiety F41.9 [facility] [place] [address] [id number] [place] [id number] Dec, Essential (primary) hypertension I10 [facility] [place] [address] [id number] [place] [id number] Nov, Migraine with aura and without status mi grainosus, not intractable G43.109 and Essential (primary) hypertension I10 [facility] [place] [address] [id number] [place] [id number] Nov, Anxiety F41.9 ; Migraine with aura and w ithout status migrainosus, not intractable G43.109 and Insomnia, unspecified type G47.00 [facility] [place] [address] [id number] [place] [id number] Oct, Migraine with aura and without status mi grainosus, not intractable G43.109 [facility] [place] [address] [id number] [place] [id number] Oct, Anxiety F41.9 and Essential (primary) hy pertension I10 [facility] [address] [facility] [id number] [address] [place] [address] Oct, [facility] [address] [facility] [id number] [address] [place] [address] Sep, [facility] [place] [address] [facility] [id number] [place] [id number] Sep, Diverticulitis of large intestine withou t perforation or abscess without bleeding K57.32 and Anxiety F41.9 [facility] [place] [id number] [place] [id number] Aug, Diverticulitis of large intestine withou t perforation or abscess without bleeding K57.32 [facility] [address] [facility] [id number] [address] [place] [address] Aug, [facility] [place] [id number] [place] [address], [place] [id number] Aug, [facility] [address] [facility] [id number] [address] [place] [address] Aug, [facility] [place] [id number] [place] [id number] Aug, [facility] [id number] [place] [address], [place] [id number] Jul, Ingrown left big toenail L60.0 [facility] [place] [id number] [place] [address], [place] [id number] Jul, [facility] [place] [id number] [place], [place] [address], [place] [id number] Jul, Ingrowing toenail of right foot L60.0 [facility] [place] [id number] [place] [id number] Apr, [facility] [place] [id number] [place] [address], [place] [id number] Apr, RUQ abdominal pain R10.11 ; Fatty liver disease, nonalcoholic K76.0 ; Hx of hyperglycemia Z86.39 ; Elevated alanine aminotransferase (ALT) level R74.0 ; Elevated LDL cholesterol level E78.0 and Prediabetes R73.09 [facility] [id number] [place] [address], [place] [id number] 08 Apr, 2016 RUQ abdominal pain R10.11 ; Mild persist ent asthma without complication J45.30 ; Anxiety F41.9 and Essential (primary) hypertension I10 [facility] [id number] [place] [address], [place] [id number] March, Wheezing R06.2 and Cough R05 [facility] [address] [facility] [id number] [place] [id number] March, [facility] [address] [id number] [place] [id number] March, [facility] [address] [facility] [id number] [place] [id number] March, Acute severe exacerbation of asthma J45. 51 ; Cough R05 and Cough headache G44.83 [facility] [address] [facility] [id number] [place] [id number] Feb, Mild intermittent asthma with acute exac erbation J45.21 and Transient insomnia F51.02 [facility] [address] [facility] [id number] [place] [id number] Feb, Pigmented skin lesion of uncertain natur e L81.9 [facility] [address] [facility] [id number] [place] [id number] Feb, Anxiety F41.9 and Essential (primary) hy pertension I10 [facility] [address] [facility] [id number] [place] [id number] Jan, [facility] [address] [facility] [id number] [place] [id number] Jan, Routine gynecological examination Z01.41 9 and Encounter for Papanicolaou smear for cervical cancer screening Z12.4 [facility] [address] [facility] [id number] [place] [id number] Jan, Essential (primary) hypertension I10 and Anxiety F41.9 [facility] [address] [facility] [id number] [place] [id number] Dec, Essential (primary) hypertension I10 and Anxiety F41.9 [facility] [address] [facility] [id number] [place] [id number] Nov, Essential (primary) hypertension I10 [facility] [address] [id number] [place] [id number] Aug, [facility] [address] [facility] [id number] [place] [id number] Aug, CAP (community acquired pneumonia) J18.9 [facility] [place] [address] [id number] [place] [id number] Aug, CAP (community acquired pneumonia) J18.[address] [facility] [address] [id number] [place] [id number] Aug, CAP (community acquired pneumonia) J18.9 [facility] [place] [address] [id number] [place] [id number] Aug, CAP (community acquired pneumonia) J18.9 and Essential (primary) hypertension I10 [facility] [place] [address] [id number] [place] [id number] Aug, CAP (community acquired pneumonia) J18.9 [facility] [place] [facility] [address] [id number] [address] [place] [id number] Apr, [facility] [place] [facility] [address] [id number] [address] [place] [id number] Feb, [facility] [place] [facility] [address] [id number] [address] [place] [phone] Feb, [facility] [place] [address] [id number] [place] [id number] Jan, [facility] [place] [facility] [address] [facility] [id number] [address] [place] [phone] Jan, [facility] [place] [facility] [address] [facility] [id number] [address] [place] [phone] Nov, [facility] [place] [address] [id number] [place] [id number] Nov, [facility] [place] [facility] [address] [id number] [address] [place] [phone] Nov, [facility] [place] [address] [id number] [place] [id number] Oct, [facility] [address] [id number] [address] [place] [address], [place] [address] Oct, [facility] [place] [address] [id number] [place] [id number] Sep, [facility] [place] [facility] [address] [id number] [facility] [address] Sep, [facility] [place] [address] [id number] [place] [id number] Jun, [facility] [place] [facility] [address] [id number] [facility] [address] Jun, [facility] [place] [address] [id number] [place] [id number] Jun, [facility] [place] [facility] [address] [id number] [facility] [address] Jun, [facility] [place] [address] [id number] [place] [id number] May, [facility] [place] [facility] [address] [id number] [facility] [address] May, [facility] [place] [address] [id number] [place] [id number] Dec, [facility] [place] [facility] [address] [id number] [address] [place] [address], [place] [address] Dec, [facility] [place] [address] [id number] [place] [id number] Feb, [facility] [place] [address] [id number] [place] [id number] Feb, [facility] [place] [address] [id number] [place] [id number] Feb, [facility] [place] [facility] [address] [id number] [facility] [address] 16 Feb, 2013 [facility] [place] [address] [id number] [place] [id number] 15 Feb, 2013 [facility] [place] [address] [id number] [place] [id number] Feb, [facility] [place] [facility] [address] [id number] [address] [place] [address], [place] [address] Feb, [facility] [address] [id number] [address] [place] [phone] Feb, [facility] [address] [id number] [address] [place] [phone] Feb, [facility] [place] [address] [id number] [place] [id number] Feb, [facility] [place] [address] [id number] [place] [id number] Feb, [facility] [place] [address] [id number] [place] [id number] Jan, [facility] [place] [address] [id number] [place] [id number] Nov, [facility] [place] [address] [id number] [place] [id number] Nov, [facility] [address] [id number] [address] [place] [phone] Oct, [facility] [address] [id number] [address] [place] [id number] Apr, [facility] [address] [id number] [address] [place] [phone] Dec, [facility] [address] [facility] [id number] [address] [place] [phone] Nov, [facility] [address] [facility] [id number] [address] [place] [phone] Oct, [facility] [address] [id number] [address] [place] [id number] Oct, [facility] [address] [id number] [address] [place] [phone] Sep, [facility] [address] [facility] [id number] [address] [place] [phone] Sep, [facility] [address] [facility] [id number] [address] [place] [address] Sep, IMMUNIZATIONS No Known Immunizations SOCIAL HISTORY Never Assessed REASON FOR VISIT PLAN OF CARE VITAL SIGNS Height 66 in 2014-07-26 Weight 283.6 lbs 2014-07-26 Temperature 97.4 degrees Fahrenheit 2014-07-26 Heart Rate 64 bpm 2014-07-26 Respiratory Rate 18 2014-07-26 Blood pressure systolic 122 mmHg 2014-07-26 Blood pressure diastolic 84 mmHg 2014-07-26 MEDICATIONS No Known Medications RESULTS No Results [...]
--- OUTSIDE RECORDS SUMMARY | 2020-03-17 14:47 | XMS REPORT ---
Author Author Fatimah FRANKS Organization [facility] Address [address] [place] [address] Care Team Providers Care Multisensor Intelligence Officer Name Role Phone NUZHAT FRANKS Unavailable PROBLEMS Type Condition ICD9-CM Code OAY61-XO Code Onset Dates Condition S tatus SNOMED Code Problem Anxiety F41.9 Active 31037655 Problem Essential (primary) hypertension I10 Active 19306183 Problem Diverticulitis of large inte simon without perforation or abscess without bleeding K57.32 Active 0514856 Problem Elevated LDL cholesterol level E78.0 Active 051878921 Problem Migraine with aura and without status migrainosu s, not intractable G43.109 Active 3719254 Problem Insomnia, unspecified type G47.00 Act nathan 470026476 Problem RUQ abdominal pain R10.11 Active 3 50397884 Problem Biliary dyskinesia K82.8 Active 1 60519470 Problem Other chronic pain G89.29 Active 8 3091554 Problem Tobacco abuse Z72.0 Active 132267 000 Problem Morbid obesity E66.01 Active 38177 6002 Problem Diverticulitis K57.92 Active 01663 6006 Problem Lumbago with sciatica, right side M54.41 Active 364742249 Problem Exacerbation of asthma, unsp ecified asthma severity, unspecified whether persistent J45.901 Active 040698690 Problem Diverticulitis of large inte simon, unspecified bleeding status, unspecified complication status K57.32 Active 6436754 Problem CAP (community acquired pneumonia) J18.9 Active 297277098 Problem Sleep apnea, unspecified type G47.30 Active 26733202 Problem BMI 45.0-49.9, adult Z68.42 Active 970222273 Problem Obstructive sleep apnea syndrome G47.33 Active 02015348 Problem Dysthymia F34.1 Active 10832662 ALLERGIES No Information ENCOUNTERS Encounter Location Date Diagnosis [facility] [address] [id number] [id number] Feb, Dysthymia F34.1 ; Lumbago with sciatica, right side M54.41 and Morbid obesity E66.01 [facility] [id number] [place] [id number] Feb, Exacerbation of asthma, unspecified asth ma severity, unspecified whether persistent J45.901 ; Thrush B37.0 and Morbid obesity E66.01 [facility] [address] [place] [id number] [place] [address], [place] [id number] Feb, Morbid obesity E66.01 ; Essential (prima ry) hypertension I10 ; Lumbago with sciatica, right side M54.41 and Dysthymia F34.1 [place] [id number] [place] [address], [place] [id number] Dec, BMI 45.0-49.9, adult Z68.42 ; Phantom pa in G54.6 ; Anxiety F41.9 and Dysthymia F34.1 [place] [id number] [place] [address], [place] [id number] Nov, BMI 45.0-49.9, adult Z68.42 ; 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, 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 ; Dysthymia F34.1 ; Anxiety F41.9 and Essential (primary) hypertension I10 [facility] [address] [id number] [place] [id number] Oct, Essential (primary) hypertension I10 [facility] [id number] [place] [address] [id number] Oct, Dental examination Z01.20 [facility] [address] [id number] [place] [id number] Sep, [facility] [address] [place] [address] [id number] Sep, Dental examination Z01.20 an d Caries K02.9 [facility] [address] [id number] [place] [id number] Sep, Dysthymia F34.1 and Diverticulitis K57.9 2 [facility] [address] [facility] [id number] [place] [id number] [facility] [place] [address] [id number] [id number] Aug, Essential (primary) hypertension I10 ; D yspnea on exertion R06.09 ; Obstructive sleep apnea syndrome G47.33 and Tobacco abuse Z72.0 [facility] [address] [id number] [place] [id number] Aug, BMI 45.0-49.9, adult Z68.42 and Divertic ulitis K57.92 [facility] [address] [facility] [id number] [place] [id number] Jul, Lumbago with sciatica, right side M54.41 and Dysthymia F34.1 [facility] [address] [facility] [id number] [place] [id number] Jul, BMI 45.0-49.9, adult Z68.42 ; Dysthymia F34.1 ; Lumbago with sciatica, right side M54.41 and Essential (primary) hypertension I10 [facility] [address] [facility] [id number] [place] [id number] Jun, BMI 45.0-49.9, adult Z68.42 ; Essential (primary) hypertension I10 ; Dysthymia F34.1 ; Lumbago with sciatica, right side M54.41 and Mild intermittent asthma with acute exacerbation J45.21 [facility] [address] [facility] [id number] [place] [id number] Jun, [facility] [address] [facility] [id number] [address] [address] Jun, Chest congestion R09.89 ; Co ugh R05 and BMI 45.0-49.9, adult Z68.42 [facility] [address] [id number] [place] [id number] Jun, Dental examination Z01.20 [facility] [address] [facility] [id number] [place] [id number] May, Essential (primary) hypertension I10 ; L umbago with sciatica, right side M54.41 ; Anxiety F41.9 and BMI 45.0-49.9, adult Z68.[address] [facility] [address] [id number] [place]KE[place] [id number] May, Essential (primary) hypertension I10 ; O ther chest pain R07.89 ; Dyspnea on exertion R06.09 ; Tobacco abuse Z72.0 ; Sleep apnea, unspecified type G47.30 ; BMI 45.0-49.9, adult Z68.42 and Morbid obesity E66.01 [facility] [address] [facility] [id number] [address] [address] May, BMI 45.0-49.9, adult Z68.42 [facility] [place] [address] [id number] [place] [id number] May, BMI 45.0-49.9, adult Z68.42 ; Lumbago wi th sciatica, right side M54.41 ; Anxiety F41.9 and Essential (primary) hypertension I10 [facility] [address] [facility] [id number] [address] [place] [address] Apr, [facility] [place] [address] [id number] [place] [id number] Apr, Anxiety F41.9 [facility] [place] [address] [id number] [place] [id number] Apr, Anxiety F41.9 [facility] [place] [address] [id number] [place] [id number] Apr, [facility] [place] [address] [id number] [place] [id number] Apr, Dental examination Z01.20 [facility] [place] [address] [id number] [place] [id number] Apr, Anxiety F41.9 [facility] [place] [address] [id number] [place] [id number] Apr, Anxiety F41.9 and Lumbago with sciatica, right side M54.41 [facility] [place] [address] [id number] [place] [id number] March, Anxiety F41.9 [facility] [address] [facility] [id number] [place] [id number] March, Diverticulitis of large intestine, unspe cified bleeding status, unspecified complication status K57.32 ; Anxiety F41.9 and Essential (primary) hypertension I10 [facility] [address] [facility] [id number] [place] [id number] March, RUQ abdominal pain R10.11 [facility] [address] [facility] [id number] [address] [place] [address] Feb, Wheezing on auscultation R06 .2 [facility] [address] [place] [id number] [place] [id number] Feb, Anxiety F41.9 [facility] [place] [id number] [place] [id number] Feb, [facility] [place] [id number] [place] [id number] Jan, BMI 50.0-59.9, adult Z68.43 ; Anxiety F4 1.9 ; Chest pain, unspecified type R07.9 and Essential (primary) hypertension I10 [facility] [address] [facility] [address] [id number] [place] [id number] Jan, BMI 45.0-49.9, adult Z68.42 ; Morbid obe sity E66.01 ; Chest pain, non- cardiac R07.89 ; Anxiety F41.9 ; Essential (primary) hypertension I10 and Tobacco abuse Z72.0 [facility] [address] [place] [address] AVE [id number] [place] [id number] Jan, Essential (primary) hypertension I10 [facility] [address] [facility] [id number] [place] [id number] Dec, Essential (primary) hypertension I10 ; M igraine with aura and without status migrainosus, not intractable G43.109 ; Viral syndrome B34.9 and Lumbago with sciatica, right side M54.41 [facility] [place] [address] [id number] [place] [id number] Nov, BMI 45.0-49.9, adult Z68.42 ; Migraine w ith aura and without status migrainosus, not intractable G43.109 and Essential (primary) hypertension I10 [facility] [place] [address] [id number] [place] [id number] Nov, Essential (primary) hypertension I10 [facility] [place] [address] [id number] [place] [id number] Nov, BMI 45.0-49.9, adult Z68.42 ; Essential (primary) hypertension I10 ; Anxiety F41.9 ; Lumbago with sciatica, right side M54.41 and Other chronic pain G89.29 [facility] [place] [address] [id number] [place] [id number] Nov, [facility] [place] [address] [id number] [place] [id number] Aug, RUQ abdominal pain R10.11 [facility] [place] [address] [id number] [place] [id number] Aug, Essential (primary) hypertension I10 [address] [facility] [place] [address] [id number] [place] [id number] May, Essential (primary) hypertension I[address] [facility] [place] [address] [id number] [place] [id number] March, Diverticulitis of large intestine, unspe cified bleeding status, unspecified complication status K57.32 [facility] [address] [facility] [id number] [address] [address] March, [facility] [place] [address] [id number] [place] [id number] March, [facility] [place] [address] [id number] [place] [id number] March, Chest wall pain R07.89 and Dysuria R30.0 [facility] [place] [address] [id number] [place] [id number] March, Anxiety F41.9 [facility] [place] [address] [id number] [place] [id number] Feb, Biliary dyskinesia K82.8 [facility] [place] [address] [id number] [place] [id number] Feb, Biliary dyskinesia K82.8 [facility] [place] [address] [id number] [place] [id number] Jan, Essential (primary) hypertension I10 and RUQ abdominal pain R10.11 [facility] [place] [address] [id number] [place] [id number] Jan, Essential (primary) hypertension I10 and Anxiety F41.9 [facility] [place] [address] [id number] [place] [id number] Dec, Essential (primary) hypertension I10 [facility] [place] [address] [id number] [place] [id number] Nov, Migraine with aura and without status mi grainosus, not intractable G43.109 and Essential (primary) hypertension I10 [facility] [place] [address] [id number] [place] [id number] Nov, Anxiety F41.9 ; Migraine with aura and w ithout status migrainosus, not intractable G43.109 and Insomnia, unspecified type G47.00 [facility] [place] [address] [id number] [place] [id number] Oct, Migraine with aura and without status mi grainosus, not intractable G43.109 [facility] [place] [address] [id number] [place] [id number] Oct, Anxiety F41.9 and Essential (primary) hy pertension I[address] [facility] [address] [place] [id number] [address] [place] [address] Oct, [facility] [address] [facility] [id number] [address] [place] [address] Sep, [facility] [place] [address] [facility] [id number] [place] [id number] Sep, Diverticulitis of large intestine withou t perforation or abscess without bleeding K57.32 and Anxiety F41.9 [facility] [place] [address] [id number] [place] [id number] Aug, Diverticulitis of large intestine withou t perforation or abscess without bleeding K57.32 [facility] [address] [facility] [id number] [place] [address] Aug, [facility] [place] [address] [id number] [place] [id number] Aug, [facility] [address] [facility] [id number] [address] [place] [address] Aug, [facility] [place] [address] [id number] [place] [id number] Aug, [facility] [place] [address] [id number] [place] [id number] Jul, Ingrown left big toenail L60.0 [facility] [place] [address] [id number] [place] [id number] Jul, [facility] [place] [address] [id number] [place] [id number] Jul, Ingrowing toenail of right foot L60.0 [facility] [place] [address] [id number] [place] [id number] Apr, [facility] [place] [address] [id number] [place] [id number] Apr, RUQ abdominal pain R10.11 ; Fatty liver disease, nonalcoholic K76.0 ; Hx of hyperglycemia Z86.39 ; Elevated alanine aminotransferase (ALT) level R74.0 ; Elevated LDL cholesterol level E78.0 and Prediabetes R73.09 [facility] [place] [address] [id number] [place] [id number] Apr, RUQ abdominal pain R10.11 ; Mild persist ent asthma without complication J45.30 ; Anxiety F41.9 and Essential (primary) hypertension I10 [facility] [place] [address] [place] [id number] [place] [id number] March, Wheezing R06.2 and Cough R05 [facility] [address] [facility] [id number] [place] [id number] March, [facility] [address] [facility] [id number] [place] [id number] March, [facility] [address] [id number] [place] [id number] March, Acute severe exacerbation of asthma J45. 51 ; Cough R05 and Cough headache G44.83 [facility] [address] [facility] [id number] [place] [id number] Feb, Mild intermittent asthma with acute exac erbation J45.21 and Transient insomnia F51.02 [facility] [address] [facility] [id number] [place] [id number] Feb, Pigmented skin lesion of uncertain natur e L81.9 [facility] [address] [place] [id number] [place] [address], [place] [id number] Feb, Anxiety F41.9 and Essential (primary) hy pertension I10 [facility] [address] [facility] [id number] [place] [id number] Jan, [facility] [address] [facility] [id number] [place] [id number] Jan, Routine gynecological examination Z01.41 9 and Encounter for Papanicolaou smear for cervical cancer screening Z12.4 [facility] [address] [facility] [id number] [place] [id number] Jan, Essential (primary) hypertension I10 and Anxiety F41.9 [facility] [address] [facility] [id number] [place] [id number] 10 Dec, 2015 Essential (primary) hypertension I10 and Anxiety F41.9 [facility] [address] [facility] [id number] [place] [id number] Nov, Essential (primary) hypertension I10 [facility] [address] [id number] [place] [id number] Aug, [facility] [address] [facility] [id number] [place] [id number] Aug, CAP (community acquired pneumonia) J18.9 [facility] [place] [address] [id number] [place] [id number] Aug, CAP (community acquired pneumonia) J18.9 [facility] [address] [facility] [address] [id number] [place] [id number] Aug, CAP (community acquired pneumonia) J18.9 [facility] [place] [address] [id number] [place] [id number] Aug, CAP (community acquired pneumonia) J18.9 and Essential (primary) hypertension I10 [facility] [place] [address] [id number] [place] [id number] Aug, CAP (community acquired pneumonia) J18.9 [facility] [address] [id number] [address] [place] [address] Apr, [facility] [address] [id number] [address] [place] [address] Feb, [facility] [address] [id number] [address] [place] [address] Feb, [facility] [place] [address] [id number] [place] [id number] Jan, [facility] [address] [facility] [id number] [address] [place] [address] Jan, [facility] [address] [facility] [id number] [address] [place] [address] Nov, [facility] [place] [address] [id number] [place] [id number] Nov, [facility] [address] [id number] [address] [place] [address] Nov, [facility] [place] [address] [id number] [place] [id number] Oct, [facility] [address] [id number] [address] [place] [address] Oct, [facility] [place] [address] [id number] [place] [id number] Sep, [facility] [address] [id number] [facility] [place] [address] Sep, [facility] [place] [address] [id number] [place] [id number] Jun, [facility] [address] [id number] [facility] [place] [address] Jun, [facility] [place] [address] [id number] [place] [id number] Jun, [facility] [address] [id number] [facility] [place] [address] Jun, [facility] [place] [address] [id number] [place] [id number] May, [facility] [address] [facility] [id number] [facility] [place] [address] May, [facility] [place] [address] [id number] [place] [id number] Dec, [facility] [address] [id number] [address] [place] [address], [place] [address] Dec, [facility] [place] [address] [id number] [place] [id number] Feb, [facility] [place] [address] [id number] [place] [id number] Feb, [facility] [place] [address] [id number] [place] [id number] Feb, [facility] [address] [id number] [facility] [place] [address] 16 Feb, 2013 [facility] [place] [address] [id number] [place] [id number] 15 Feb, 2013 [facility] [place] [address] [id number] [place] [id number] Feb, [facility] [address] [facility] [id number] [facility] [place] [address] Feb, [facility] [address] [id number] [address] [place] [address] Feb, [facility] [address] [id number] [address] [place] [address] Feb, [facility] [place] [address] [id number] [place] [id number] Feb, [facility] [place] [address] [id number] [place] [id number] Feb, [facility] [place] [address] [id number] [place] [id number] Jan, [facility] [place] [address] [id number] [place] [id number] Nov, [facility] [place] [address] [id number] [place] [id number] Nov, [facility] [address] [facility] [id number] [address] [place] [address] Oct, [facility] [address] [id number] [address] [place] [address] Apr, [facility] [address] [facility] [id number] [address] [place] [address] Dec, [facility] [address] [facility] [id number] [address] [place] [address] Nov, [facility] [address] [facility] [id number] [address] [place] [address] Oct, [facility] [address] [facility] [id number] [address] [place] [address] Oct, [facility] [address] [facility] [id number] [address] [place] [address] Sep, [facility] [address] [facility] [id number] [address] [place] [address] Sep, [facility] [address] [facility] [id number] [address] [place] [address] Sep, IMMUNIZATIONS No Known Immunizations SOCIAL HISTORY Never Assessed REASON FOR VISIT PLAN OF CARE VITAL SIGNS Height 66 in 2014-07-09 Weight 281 lbs 2014-07-09 Temperature 99 degrees Fahrenheit 2014-07-09 Heart Rate 106 bpm 2014-07-09 Respiratory Rate 24 2014-07-09 Blood pressure systolic 132 mmHg 2014-07-09 Blood pressure diastolic 78 mmHg 2014-07-09 MEDICATIONS No Known Medications RESULTS No Results [...]
--- OUTSIDE RECORDS SUMMARY | 2020-03-17 14:47 | XMS REPORT ---
Author Author Fatimah FRANKS Organization [facility] Address [address] [place] [address] Care Team Providers Care Assembly Press Operator Name Role Phone NUZHAT FRANKS Unavailable PROBLEMS Type Condition ICD9-CM Code VXG36-UF Code Onset Dates Condition S tatus SNOMED Code Problem Anxiety F41.9 Active 85236091 Problem Essential (primary) hypertension I10 Active 10239932 Problem Diverticulitis of large inte simon without perforation or abscess without bleeding K57.32 Active 7530104 Problem Elevated LDL cholesterol level E78.0 Active 929412075 Problem Migraine with aura and without status migrainosu s, not intractable G43.109 Active 5256689 Problem Insomnia, unspecified type G47.00 Act nathan 447042731 Problem RUQ abdominal pain R10.11 Active 3 83518625 Problem Biliary dyskinesia K82.8 Active 1 97271895 Problem Other chronic pain G89.29 Active 8 1156626 Problem Tobacco abuse Z72.0 Active 180947 000 Problem Morbid obesity E66.01 Active 72842 6002 Problem Diverticulitis K57.92 Active 59180 6006 Problem Lumbago with sciatica, right side M54.41 Active 826349402 Problem Exacerbation of asthma, unsp ecified asthma severity, unspecified whether persistent J45.901 Active 078185746 Problem Diverticulitis of large inte simon, unspecified bleeding status, unspecified complication status K57.32 Active 3074576 Problem CAP (community acquired pneumonia) J18.9 Active 225361031 Problem Sleep apnea, unspecified type G47.30 Active 07446601 Problem BMI 45.0-49.9, adult Z68.42 Active 260662115 Problem Obstructive sleep apnea syndrome G47.33 Active 73362182 Problem Dysthymia F34.1 Active 00708252 ALLERGIES No Information ENCOUNTERS Encounter Location Date Diagnosis [facility] [address] [id number] [id number] Feb, Dysthymia F34.1 ; Lumbago with sciatica, right side M54.41 and Morbid obesity E66.01 [facility] [id number] [place] [id number] Feb, Exacerbation of asthma, unspecified asth ma severity, unspecified whether persistent J45.901 ; Thrush B37.0 and Morbid obesity E66.01 [facility] [id number] [place] [address], [place] [id number] Feb, Morbid obesity E66.01 ; Essential (prima ry) hypertension I10 ; Lumbago with sciatica, right side M54.41 and Dysthymia F34.1 [place] [id number] [place] [address], [place] [id number] Dec, BMI 45.0-49.9, adult Z68.42 ; Phantom pa in G54.6 ; Anxiety F41.9 and Dysthymia F34.1 [place] [id number] [place] [address], [place] [id number] Nov, BMI 45.0-49.9, adult Z68.42 ; 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, 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 ; Dysthymia F34.1 ; Anxiety F41.9 and Essential (primary) hypertension I10 [facility] [address] [id number] [place] [id number] Oct, Essential (primary) hypertension I10 [facility] [address] [id number] [place] [address] [id number] Oct, Dental examination Z01.20 [facility] [address] [id number] [place] [id number] Sep, [facility] [address] [place] [address] [id number] Sep, Dental examination Z01.20 an d Caries K02.9 [facility] [address] [id number] [place] [id number] Sep, Dysthymia F34.1 and Diverticulitis K57.9 2 [facility] [address] [facility] [id number] [place] [id number] Sep, [facility] [address] [id number] [id number] Aug, Essential (primary) hypertension I10 ; D yspnea on exertion R06.09 ; Obstructive sleep apnea syndrome G47.33 and Tobacco abuse Z72.0 [facility] [address] [id number] [place] [id number] Aug, BMI 45.0-49.9, adult Z68.42 and Divertic ulitis K57.92 [facility] [address] [facility] [id number] [place] [id number] Jul, Lumbago with sciatica, right side M54.41 and Dysthymia F34.1 [facility] [address] [facility] [id number] [place] [id number] Jul, BMI 45.0-49.9, adult Z68.42 ; Dysthymia F34.1 ; Lumbago with sciatica, right side M54.41 and Essential (primary) hypertension I10 [facility] [address] [facility] [id number] [place] [id number] Jun, BMI 45.0-49.9, adult Z68.42 ; Essential (primary) hypertension I10 ; Dysthymia F34.1 ; Lumbago with sciatica, right side M54.41 and Mild intermittent asthma with acute exacerbation J45.21 [facility] [address] [facility] [id number] [place] [id number] Jun, [facility] [address] [facility] [id number] [address] [place] [address] Jun, Chest congestion R09.89 ; Co ugh R05 and BMI 45.0-49.9, adult Z68.42 [facility] [address] [id number] [id number] Jun, Dental examination Z01.20 [facility] [address] [facility] [id number] [place] [id number] May, Essential (primary) hypertension I10 ; L umbago with sciatica, right side M54.41 ; Anxiety F41.9 and BMI 45.0-49.9, adult Z68.[address] [facility] [address] [id number][place] [id number] May, Essential (primary) hypertension I10 ; O ther chest pain R07.89 ; Dyspnea on exertion R06.09 ; Tobacco abuse Z72.0 ; Sleep apnea, unspecified type G47.30 ; BMI 45.0-49.9, adult Z68.42 and Morbid obesity E66.01 [facility] [address] [facility] [id number] [address] [place] [address] May, BMI 45.0-49.9, adult Z68.42 [facility] [place] [address] [id number] [place] [id number] May, BMI 45.0-49.9, adult Z68.42 ; Lumbago wi th sciatica, right side M54.41 ; Anxiety F41.9 and Essential (primary) hypertension I10 [facility] [address] [facility] [id number] [address] [place] [address] Apr, [facility] [place] [address] [id number] [place] [id number] Apr, Anxiety F41.9 [facility] [place] [address] [id number] [place] [id number] Apr, Anxiety F41.9 [facility] [place] [address] [id number] [place] [id number] Apr, [facility] [address] [address] [id number] [id number] Apr, Dental examination Z01.20 [facility] [place] [address] [id number] [place] [id number] Apr, Anxiety F41.9 [facility] [place] [address] [id number] [place] [id number] Apr, Anxiety F41.9 and Lumbago with sciatica, right side M54.41 [facility] [place] [address] [id number] [place] [id number] March, Anxiety F41.9 [facility] [address] [facility] [id number] [place] [id number] March, Diverticulitis of large intestine, unspe cified bleeding status, unspecified complication status K57.32 ; Anxiety F41.9 and Essential (primary) hypertension I10 [facility] [address] [facility] [id number] [place] [id number] March, RUQ abdominal pain R10.11 [facility] [address] [facility] [id number] [address] [place] [address] Feb, Wheezing on auscultation R06 .2 [facility] [address] [id number] [place] [id number] Feb, Anxiety F41.9 [facility] [place] [id number] [place] [id number] Feb, [facility] [place] [id number] [place] [id number] Jan, BMI 50.0-59.9, adult Z68.43 ; Anxiety F4 1.9 ; Chest pain, unspecified type R07.9 and Essential (primary) hypertension I10 [facility] [address] [facility] [address] [id number][place] [id number] Jan, BMI 45.0-49.9, adult Z68.42 ; Morbid obe sity E66.01 ; Chest pain, non- cardiac R07.89 ; Anxiety F41.9 ; Essential (primary) hypertension I10 and Tobacco abuse Z72.0 [facility] [address] [place] [address] AVE [id number] [id number] Jan, Essential (primary) hypertension I10 [facility] [address] [facility] [id number] [place] [id number] Dec, Essential (primary) hypertension I10 ; M igraine with aura and without status migrainosus, not intractable G43.109 ; Viral syndrome B34.9 and Lumbago with sciatica, right side M54.41 [facility] [place] [address] [id number] [place] [id number] Nov, BMI 45.0-49.9, adult Z68.42 ; Migraine w ith aura and without status migrainosus, not intractable G43.109 and Essential (primary) hypertension I10 [facility] [place] [address] [id number] [place] [id number] Nov, Essential (primary) hypertension I10 [facility] [place] [address] [id number] [place] [id number] Nov, BMI 45.0-49.9, adult Z68.42 ; Essential (primary) hypertension I10 ; Anxiety F41.9 ; Lumbago with sciatica, right side M54.41 and Other chronic pain G89.29 [facility] [place] [address] [id number] [place] [id number] Nov, [facility] [place] [address] [id number] [place] [id number] Aug, RUQ abdominal pain R10.11 [facility] [place] [address] [id number] [place] [id number] Aug, Essential (primary) hypertension I10 and Anxiety F41.9 [facility] [place] [address] [id number] [place] [id number] May, Essential (primary) hypertension I10 and Anxiety F41.9 [facility] [place] [address] [id number] [place] [id number] March, Diverticulitis of large intestine, unspe cified bleeding status, unspecified complication status K57.32 [facility] [address] [facility] [id number] [address] [place] [address] March, [facility] [place] [address] [id number] [place] [id number] March, [facility] [place] [address] [id number] [place] [id number] March, Chest wall pain R07.89 and Dysuria R30.0 [facility] [place] [address] [id number] [place] [id number] March, Anxiety F41.9 [facility] [place] [address] [id number] [place] [id number] Feb, Biliary dyskinesia K82.8 [facility] [place] [address] [id number] [place] [id number] Feb, Biliary dyskinesia K82.8 [facility] [place] [address] [id number] [place] [id number] Jan, Essential (primary) hypertension I10 and RUQ abdominal pain R10.11 [facility] [place] [address] [id number] [place] [id number] Jan, Essential (primary) hypertension I10 and Anxiety F41.9 [facility] [place] [address] [id number] [place] [id number] Dec, Essential (primary) hypertension I10 [facility] [place] [address] [id number] [place] [id number] Nov, Migraine with aura and without status mi grainosus, not intractable G43.109 and Essential (primary) hypertension I10 [facility] [place] [address] [id number] [place] [id number] Nov, Anxiety F41.9 ; Migraine with aura and w ithout status migrainosus, not intractable G43.109 and Insomnia, unspecified type G47.00 [facility] [place] [address] [id number] [place] [id number] Oct, Migraine with aura and without status mi grainosus, not intractable G43.109 [facility] [place] [address] [id number] [place] [id number] Oct, Anxiety F41.9 and Essential (primary) hy pertension I[address] [facility] [address] [id number] [address] [place] [address] Oct, [facility] [address] [facility] [id number] [address] [place] [address] Sep, [facility] [place] [address] [facility] [id number] [place] [id number] Sep, Diverticulitis of large intestine withou t perforation or abscess without bleeding K57.32 and Anxiety F41.9 [facility] [place] [address] [id number] [place] [id number] Aug, Diverticulitis of large intestine withou t perforation or abscess without bleeding K57.32 [facility] [address] [facility] [id number] 100[place] [address] Aug, [facility] [place] [address] [id number] [place] [id number] Aug, [facility] [address] [facility] [id number] [address] [place] [address] Aug, [facility] [place] [address] [id number] [place] [id number] Aug, [facility] [place] [address] [id number] [place] [id number] Jul, Ingrown left big toenail L60.0 [facility] [place] [address] [id number] [place] [id number] Jul, [facility] [place] [address] [id number] [place] [id number] Jul, Ingrowing toenail of right foot L60.0 [facility] [place] [address] [id number] [place] [id number] Apr, [facility] [place] [address] [id number] [place] [id number] Apr, RUQ abdominal pain R10.11 ; Fatty liver disease, nonalcoholic K76.0 ; Hx of hyperglycemia Z86.39 ; Elevated alanine aminotransferase (ALT) level R74.0 ; Elevated LDL cholesterol level E78.0 and Prediabetes R73.09 [facility] [place] [address] [id number] [place] [id number] Apr, RUQ abdominal pain R10.11 ; Mild persist ent asthma without complication J45.30 ; Anxiety F41.9 and Essential (primary) hypertension I10 [facility] [place] [address] [id number] [place] [id number] March, Wheezing R06.2 and Cough R05 [facility] [address] [facility] [id number] [place] [id number] March, [facility] [address] [facility] [id number] [place] [id number] March, [facility] [address] [id number] [place] [id number] March, Acute severe exacerbation of asthma J45. 51 ; Cough R05 and Cough headache G44.83 [facility] [address] [facility] [id number] [place] [id number] Feb, Mild intermittent asthma with acute exac erbation J45.21 and Transient insomnia F51.02 [facility] [address] [facility] [id number] [place] [id number] Feb, Pigmented skin lesion of uncertain natur e L81.9 [facility] [id number] [place] [address], [place] [id number] Feb, Anxiety F41.9 and Essential (primary) hy pertension I10 [facility] [address] [facility] [id number] [place] [id number] Jan, [facility] [address] [facility] [id number] [place] [id number] Jan, Routine gynecological examination Z01.41 9 and Encounter for Papanicolaou smear for cervical cancer screening Z12.4 [facility] [address] [facility] [id number] [place] [id number] Jan, Essential (primary) hypertension I10 and Anxiety F41.9 [facility] [address] [facility] [id number] [place] [id number] 10 Dec, 2015 Essential (primary) hypertension I10 and Anxiety F41.9 [facility] [address] [facility] [id number] [place] [id number] Nov, Essential (primary) hypertension I10 [facility] [address] [id number] [place] [id number] Aug, [facility] [address] [facility] [id number] [place] [id number] Aug, CAP (community acquired pneumonia) J18.9 [facility] [place] [address] [id number] [place] [id number] Aug, CAP (community acquired pneumonia) J18.9 [facility] [address] [facility] [address] [id number] [place] [id number] Aug, CAP (community acquired pneumonia) J18.9 [facility] [place] [address] [id number] [place] [id number] Aug, CAP (community acquired pneumonia) J18.9 and Essential (primary) hypertension I10 [facility] [place] [address] [id number] [place] [id number] Aug, CAP (community acquired pneumonia) J18.9 [facility] [address] [id number] [address] [place] [address] Apr, [facility] [address] [id number] [address] [place] [address] Feb, [facility] [address] [id number] [address] [place] [address] Feb, [facility] [place] [address] [id number] [place] [id number] Jan, [facility] [address] [facility] [id number] [address] [place] [address] Jan, [facility] [address] [facility] [id number] [address] [place] [address] Nov, [facility] [place] [address] [id number] [place] [id number] Nov, [facility] [address] [id number] [address] [place] [address] Nov, [facility] [place] [address] [id number] [place] [id number] Oct, [facility] [address] [id number] [address] [place] [address] Oct, [facility] [place] [address] [id number] [place] [id number] Sep, [facility] [address] [id number] [facility] [place] [address] Sep, [facility] [place] [address] [id number] [place] [id number] Jun, [facility] [address] [id number] [facility] [place] [address] Jun, [facility] [place] [address] [id number] [place] [id number] Jun, [facility] [address] [id number] [facility] [place] [address] Jun, [facility] [place] [address] [id number] [place] [id number] May, [facility] [address] [facility] [id number] [facility] [place] [address] May, [facility] [place] [address] [id number] [place] [id number] Dec, [facility] [address] [id number] [address] [place] [address], [place] [address] Dec, [facility] [place] [address] [id number] [place] [id number] Feb, [facility] [place] [address] [id number] [place] [id number] Feb, [facility] [place] [address] [id number] [place] [id number] Feb, [facility] [address] [id number] [facility] [place] [address] 16 Feb, 2013 [facility] [place] [address] [id number] [place] [id number] 15 Feb, 2013 [facility] [place] [address] [id number] [place] [id number] Feb, [facility] [address] [facility] [id number] [facility] [place] [address] Feb, [facility] [address] [id number] [address] [place] [address] Feb, [facility] [address] [id number] [address] [place] [address] Feb, [facility] [place] [address] [id number] [place] [id number] Feb, [facility] [place] [address] [id number] [place] [id number] Feb, [facility] [place] [address] [id number] [place] [id number] Jan, [facility] [place] [address] [id number] [place] [id number] Nov, [facility] [place] [address] [id number] [place] [id number] Nov, [facility] [address] [facility] [id number] [address] [place] [address] Oct, [facility] [address] [id number] [address] [place] [address] Apr, [facility] [address] [facility] [id number] [address] [place] [address] Dec, [facility] [address] [facility] [id number] [address] [place] [address] Nov, [facility] [address] [facility] [id number] [address] [place] [address] Oct, [facility] [address] [facility] [id number] [address] [place] [address] Oct, [facility] [address] [facility] [id number] [address] [place] [address] Sep, [facility] [address] [facility] [id number] [address] [place] [address] Sep, [facility] [address] [facility] [id number] [address] [place] [address] Sep, IMMUNIZATIONS No Known Immunizations SOCIAL HISTORY Never Assessed REASON FOR VISIT PLAN OF CARE VITAL SIGNS Height 66 in 2014-10-03 Weight 288 lbs 2014-10-03 Temperature 97.9 degrees Fahrenheit 2014-10-03 Heart Rate 84 bpm 2014-10-03 Respiratory Rate 20 2014-10-03 Blood pressure systolic 160 mmHg 2014-10-03 Blood pressure diastolic 80 mmHg 2014-10-03 MEDICATIONS No Known Medications RESULTS No Results PROCEDURES Procedure Date Ordered Result Body Site INJ KETOROLAC TROMETHAMINE 15 MG Oct 03, 2014 IMMUNOTHERAPY, ONE INJECTION Oct 03, 2014 PHENERGAN 12.5 MG Oct 03, 2014 INSTRUCTIONS MEDICATIONS ADMINISTERED No Known Medications MEDICAL [...]
--- OUTSIDE RECORDS SUMMARY | 2020-03-17 14:47 | XMS REPORT ---
Author Author Fatimah FRANKS Organization [facility] Address [address] [place] [address] Care Team Providers Care Combination Man Name Role Phone NUZHAT FRANKS Unavailable PROBLEMS Type Condition ICD9-CM Code HRH18-HK Code Onset Dates Condition S tatus SNOMED Code Problem Anxiety F41.9 Active 01173142 Problem Essential (primary) hypertension I10 Active 56548122 Problem Diverticulitis of large inte simon without perforation or abscess without bleeding K57.32 Active 7557003 Problem Elevated LDL cholesterol level E78.0 Active 029467010 Problem Migraine with aura and without status migrainosu s, not intractable G43.109 Active 7438686 Problem Insomnia, unspecified type G47.00 Act nathan 561640183 Problem RUQ abdominal pain R10.11 Active 3 67977648 Problem Biliary dyskinesia K82.8 Active 1 87985681 Problem Other chronic pain G89.29 Active 8 2442319 Problem Tobacco abuse Z72.0 Active 997923 000 Problem Morbid obesity E66.01 Active 53891 6002 Problem Diverticulitis K57.92 Active 73234 6006 Problem Lumbago with sciatica, right side M54.41 Active 180490961 Problem Exacerbation of asthma, unsp ecified asthma severity, unspecified whether persistent J45.901 Active 752778594 Problem Diverticulitis of large inte simon, unspecified bleeding status, unspecified complication status K57.32 Active 7272047 Problem CAP (community acquired pneumonia) J18.9 Active 942879510 Problem Sleep apnea, unspecified type G47.30 Active 15326269 Problem BMI 45.0-49.9, adult Z68.42 Active 979343599 Problem Obstructive sleep apnea syndrome G47.33 Active 63442475 Problem Dysthymia F34.1 Active 99846818 ALLERGIES No Information ENCOUNTERS Encounter Location Date Diagnosis [facility] [address] [id number] Feb, Dysthymia F34.1 ; Lumbago with sciatica, right side M54.41 and Morbid obesity E66.01 [facility] [id number] [place] [id number] Feb, Exacerbation of asthma, unspecified asth ma severity, unspecified whether persistent J45.901 ; Thrush B37.0 and Morbid obesity E66.01 [facility] [id number] [place] [address], [place] [id number] Feb, Morbid obesity E66.01 ; Essential (prima ry) hypertension I10 ; Lumbago with sciatica, right side M54.41 and Dysthymia F34.1 [place] [id number] [place] [address], [place] [id number] Dec, BMI 45.0-49.9, adult Z68.42 ; Phantom pa in G54.6 ; Anxiety F41.9 and Dysthymia F34.1 [place] [id number] [place] [address], [place] [id number] Nov, BMI 45.0-49.9, adult Z68.42 ; 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, 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 ; Dysthymia F34.1 ; Anxiety F41.9 and Essential (primary) hypertension I10 [facility] [address] [id number] [place] [id number] Oct, Essential (primary) hypertension I10 [facility] [id number] [place] [address] [id number] Oct, Dental examination Z01.20 [facility] [address] [id number] [place] [id number] Sep, [facility] [address] [place] [address] [id number] Sep, Dental examination Z01.20 an d Caries K02.9 [facility] [address] [id number] [place] [id number] Sep, Dysthymia F34.1 and Diverticulitis K57.9 2 [facility] [address] [facility] [id number] [place] [id number] Sep, [facility] [address] [id number] [id number] Aug, Essential (primary) hypertension I10 ; D yspnea on exertion R06.09 ; Obstructive sleep apnea syndrome G47.33 and Tobacco abuse Z72.0 [facility] [address] [id number] [place] [id number] Aug, BMI 45.0-49.9, adult Z68.42 and Divertic ulitis K57.92 [facility] [address] [facility] [id number] [place] [id number] Jul, Lumbago with sciatica, right side M54.41 and Dysthymia F34.1 [facility] [address] [facility] [id number] [place] [id number] Jul, BMI 45.0-49.9, adult Z68.42 ; Dysthymia F34.1 ; Lumbago with sciatica, right side M54.41 and Essential (primary) hypertension I10 [facility] [address] [facility] [id number] [place] [id number] Jun, BMI 45.0-49.9, adult Z68.42 ; Essential (primary) hypertension I10 ; Dysthymia F34.1 ; Lumbago with sciatica, right side M54.41 and Mild intermittent asthma with acute exacerbation J45.21 [facility] [address] [facility] [id number] [place] [id number] Jun, [facility] [address] [facility] [id number] [address] [place] [address] Jun, Chest congestion R09.89 ; Co ugh R05 and BMI 45.0-49.9, adult Z68.42 [facility] [address] [id number][place] [id number] Jun, Dental examination Z01.20 [facility] [address] [facility] [id number] [place] [id number] May, Essential (primary) hypertension I10 ; L umbago with sciatica, right side M54.41 ; Anxiety F41.9 and BMI 45.0-49.9, adult Z68.[address] [facility] [address] [id number][place] [id number] May, Essential (primary) hypertension I10 ; O ther chest pain R07.89 ; Dyspnea on exertion R06.09 ; Tobacco abuse Z72.0 ; Sleep apnea, unspecified type G47.30 ; BMI 45.0-49.9, adult Z68.42 and Morbid obesity E66.01 [facility] [address] [facility] [id number] [address] [address] May, BMI 45.0-49.9, adult Z68.42 [facility] [place] [address] [id number] [place] [id number] May, BMI 45.0-49.9, adult Z68.42 ; Lumbago wi th sciatica, right side M54.41 ; Anxiety F41.9 and Essential (primary) hypertension I10 [facility] [address] [facility] [id number] [address] [address] Apr, [facility] [place] [address] [id number] [place] [id number] Apr, Anxiety F41.9 [facility] [place] [address] [id number] [place] [id number] Apr, Anxiety F41.9 [facility] [place] [address] [id number] [place] [id number] Apr, [facility] [address] [address] [id number] [id number] Apr, Dental examination Z01.20 [facility] [place] [address] [id number] [place] [id number] Apr, Anxiety F41.9 [facility] [place] [address] [id number] [place] [id number] Apr, Anxiety F41.9 and Lumbago with sciatica, right side M54.41 [facility] [place] [address] [id number] [place] [id number] March, Anxiety F41.9 [facility] [address] [facility] [id number] [place] [id number] March, Diverticulitis of large intestine, unspe cified bleeding status, unspecified complication status K57.32 ; Anxiety F41.9 and Essential (primary) hypertension I10 [facility] [address] [facility] [id number] [place] [id number] March, RUQ abdominal pain R10.11 [facility] [address] [facility] [id number] [address] [place] [address] Feb, Wheezing on auscultation R06 .2 [facility] [address] [id number] [place] [id number] Feb, Anxiety F41.9 [facility] [place] [id number] [place] [id number] Feb, [facility] [place] [id number] [place] [id number] Jan, BMI 50.0-59.9, adult Z68.43 ; Anxiety F4 1.9 ; Chest pain, unspecified type R07.9 and Essential (primary) hypertension I10 [facility] [address] [facility] [address] [id number][place] [id number] Jan, BMI 45.0-49.9, adult Z68.42 ; Morbid obe sity E66.01 ; Chest pain, non- cardiac R07.89 ; Anxiety F41.9 ; Essential (primary) hypertension I10 and Tobacco abuse Z72.0 [facility] [address] [place] [address] AVE [id number][place] [id number] Jan, Essential (primary) hypertension I10 [facility] [address] [facility] [id number] [place] [id number] Dec, Essential (primary) hypertension I10 ; M igraine with aura and without status migrainosus, not intractable G43.109 ; Viral syndrome B34.9 and Lumbago with sciatica, right side M54.41 [facility] [place] [address] [id number] [place] [id number] Nov, BMI 45.0-49.9, adult Z68.42 ; Migraine w ith aura and without status migrainosus, not intractable G43.109 and Essential (primary) hypertension I10 [facility] [place] [address] [id number] [place] [id number] Nov, Essential (primary) hypertension I10 [facility] [place] [address] [id number] [place] [id number] Nov, BMI 45.0-49.9, adult Z68.42 ; Essential (primary) hypertension I10 ; Anxiety F41.9 ; Lumbago with sciatica, right side M54.41 and Other chronic pain G89.29 [facility] [place] [address] [id number] [place] [id number] Nov, [facility] [place] [address] [id number] [place] [id number] Aug, RUQ abdominal pain R10.11 [facility] [place] [address] [id number] [place] [id number] Aug, Essential (primary) hypertension I10 and Anxiety F41.9 [facility] [place] [address] [id number] [place] [id number] May, Essential (primary) hypertension I10 and Anxiety F41.9 [facility] [place] [address] [id number] [place] [id number] March, Diverticulitis of large intestine, unspe cified bleeding status, unspecified complication status K57.32 [facility] [address] [facility] [id number] [address] [address] March, [facility] [place] [address] [id number] [place] [id number] March, [facility] [place] [address] [id number] [place] [id number] March, Chest wall pain R07.89 and Dysuria R30.0 [facility] [place] [address] [id number] [place] [id number] March, Anxiety F41.9 [facility] [place] [address] [id number] [place] [id number] Feb, Biliary dyskinesia K82.8 [facility] [place] [address] [id number] [place] [id number] Feb, Biliary dyskinesia K82.8 [facility] [place] [address] [id number] [place] [id number] Jan, Essential (primary) hypertension I10 and RUQ abdominal pain R10.11 [facility] [place] [address] [id number] [place] [id number] Jan, Essential (primary) hypertension I10 and Anxiety F41.9 [facility] [place] [address] [id number] [place] [id number] Dec, Essential (primary) hypertension I10 [facility] [place] [address] [id number] [place] [id number] Nov, Migraine with aura and without status mi grainosus, not intractable G43.109 and Essential (primary) hypertension I10 [facility] [place] [address] [id number] [place] [id number] Nov, Anxiety F41.9 ; Migraine with aura and w ithout status migrainosus, not intractable G43.109 and Insomnia, unspecified type G47.00 [facility] [place] [address] [id number] [place] [id number] Oct, Migraine with aura and without status mi grainosus, not intractable G43.109 [facility] [place] [address] [id number] [place] [id number] Oct, Anxiety F41.9 and Essential (primary) hy pertension I10 [facility] [address] [id number] [address] [place] [address] Oct, [facility] [address] [facility] [id number] [address] [place] [address] Sep, [facility] [place] [address] [facility] [id number] [place] [id number] Sep, Diverticulitis of large intestine withou t perforation or abscess without bleeding K57.32 and Anxiety F41.9 [facility] [place] [address] [id number] [place] [id number] Aug, Diverticulitis of large intestine withou t perforation or abscess without bleeding K57.32 [facility] [address] [facility] [id number] [place] [address] Aug, [facility] [place] [address] [id number] [place] [id number] Aug, [facility] [address] [facility] [id number] [address] [place] [address] Aug, [facility] [place] [address] [id number] [place] [id number] Aug, [facility] [place] [address] [id number] [place] [id number] Jul, Ingrown left big toenail L60.0 [facility] [place] [address] [id number] [place] [id number] Jul, [facility] [place] [address] [id number] [place] [id number] Jul, Ingrowing toenail of right foot L60.0 [facility] [place] [address] [id number] [place] [id number] Apr, [facility] [place] [address] [id number] [place], [place] [id number] Apr, RUQ abdominal pain R10.11 ; Fatty liver disease, nonalcoholic K76.0 ; Hx of hyperglycemia Z86.39 ; Elevated alanine aminotransferase (ALT) level R74.0 ; Elevated LDL cholesterol level E78.0 and Prediabetes R73.09 [facility] [place] [address] [id number] [place] [id number] Apr, RUQ abdominal pain R10.11 ; Mild persist ent asthma without complication J45.30 ; Anxiety F41.9 and Essential (primary) hypertension I10 [facility] [place] [address] [id number] [place] [id number] March, Wheezing R06.2 and Cough R05 [facility] [address] [facility] [id number] [place] [id number] March, [facility] [address] [facility] [id number] [place] [id number] March, [facility] [address] [id number] [place] [id number] March, Acute severe exacerbation of asthma J45. 51 ; Cough R05 and Cough headache G44.83 [facility] [address] [facility] [id number] [place] [id number] Feb, Mild intermittent asthma with acute exac erbation J45.21 and Transient insomnia F51.02 [facility] [address] [facility] [id number] [place] [id number] Feb, Pigmented skin lesion of uncertain natur e L81.9 [facility] [id number] [place] [address], [place] [id number] Feb, Anxiety F41.9 and Essential (primary) hy pertension I10 [facility] [address] [facility] [id number] [place] [id number] Jan, [facility] [address] [facility] [id number] [place] [id number] Jan, Routine gynecological examination Z01.41 9 and Encounter for Papanicolaou smear for cervical cancer screening Z12.4 [facility] [address] [facility] [id number] [place] [id number] Jan, Essential (primary) hypertension I10 and Anxiety F41.9 [facility] [address] [facility] [id number] [place] [id number] 10 Dec, 2015 Essential (primary) hypertension I10 and Anxiety F41.9 [facility] [address] [facility] [id number] [place] [id number] Nov, Essential (primary) hypertension I10 [facility] [address] [id number] [place] [id number] Aug, [facility] [address] [facility] [id number] [place] [id number] Aug, CAP (community acquired pneumonia) J18.9 [facility] [place] [address] [id number] [place] [id number] Aug, CAP (community acquired pneumonia) J18.9 [facility] [place] [address] [facility] [address] [id number] [place] [id number] Aug, CAP (community acquired pneumonia) J18.9 [facility] [place] [address] [id number] [place] [id number] Aug, CAP (community acquired pneumonia) J18.9 and Essential (primary) hypertension I10 [facility] [place] [address] [id number] [place] [id number] Aug, CAP (community acquired pneumonia) J18.9 [facility] [address] [id number] [address] [place] [address] Apr, [facility] [address] [id number] [address] [place] [address] Feb, [facility] [address] [id number] [address] [place] [address] Feb, [facility] [place] [address] [id number] [place] [id number] Jan, [facility] [address] [facility] [id number] [address] [place] [address] Jan, [facility] [address] [facility] [id number] [address] [place] [address] Nov, [facility] [place] [address] [id number] [place] [id number] Nov, [facility] [address] [id number] [address] [place] [address] Nov, [facility] [place] [address] [id number] [place] [id number] Oct, [facility] [address] [id number] [address] [place] [address] Oct, [facility] [place] [address] [id number] [place] [id number] Sep, [facility] [address] [id number] [facility] [address] Sep, [facility] [place] [address] [id number] [place] [id number] Jun, [facility] [address] [id number] [facility] [place] [address] Jun, [facility] [place] [address] [id number] [place] [id number] Jun, [facility] [address] [id number] [facility] [place] [address] Jun, [facility] [place] [address] [id number] [place] [id number] May, [facility] [address] [facility] [id number] [facility] [place] [address] May, [facility] [place] [address] [id number] [place] [id number] Dec, [facility] [address] [id number] [address] [place] [address], [place] [address] Dec, [facility] [place] [address] [id number] [place] [id number] Feb, [facility] [place] [address] [id number] [place] [id number] Feb, [facility] [place] [address] [id number] [place] [id number] Feb, [facility] [address] [id number] [facility] [place] [address] 16 Feb, 2013 [facility] [place] [address] [id number] [place] [id number] 15 Feb, 2013 [facility] [place] [address] [id number] [place] [id number] Feb, [facility] [address] [facility] [id number] [facility] [place] [address] Feb, [facility] [address] [id number] [address] [place] [address] Feb, [facility] [address] [id number] [address] [place] [address] Feb, [facility] [place] [address] [id number] [place] [id number] Feb, [facility] [place] [address] [id number] [place] [id number] Feb, [facility] [place] [address] [id number] [place] [id number] Jan, [facility] [place] [address] [id number] [place] [id number] Nov, [facility] [place] [address] [id number] [place] [id number] Nov, [facility] [address] [facility] [id number] [address] [place] [address] Oct, [facility] [address] [id number] [address] [place] [address] Apr, [facility] [address] [facility] [id number] [address] [place] [address] Dec, [facility] [address] [facility] [id number] [address] [place] [address] Nov, [facility] [address] [facility] [id number] [address] [place] [address] Oct, [facility] [address] [facility] [id number] [address] [place] [address] Oct, [facility] [address] [facility] [id number] [address] [place] [address] Sep, [facility] [address] [facility] [id number] [address] [place] [address] Sep, [facility] [address] [facility] [id number] [address] [place] [address] Sep, IMMUNIZATIONS No Known Immunizations SOCIAL HISTORY Never Assessed REASON FOR VISIT PLAN OF CARE VITAL SIGNS Height 66 in 2014-11-26 Weight 288.4 lbs 2014-11-26 Temperature 97.5 degrees Fahrenheit 2014-11-26 Heart Rate 84 bpm 2014-11-26 Respiratory Rate 20 2014-11-26 Blood pressure systolic 138 mmHg 2014-11-26 Blood pressure diastolic 88 mmHg 2014-11-26 MEDICATIONS No Known Medications RESULTS No Results PROCEDURES Procedure Date Ordered Result Body Site ASSAY OF MAGNESIUM Nov 26, 2014 BASIC METABOLIC PANEL Nov 26, 2014 VENIPUNCT, ROUTINE* Nov 26, 2014 INSTRUCTIONS MEDICATIONS ADMINISTERED No Known Medications [...] History Diverticulitis-[facility] 08/2016 Hospitalization History Generalized anxiety disorder-[facility] 2015 Hospitalization History Diverticulitis-[facility]. Left AMA 04/06/17 Hospitalization History ER visit for migraine 08/2017 Hospitalization History ER visit for chest pain 01/2018
--- OUTSIDE RECORDS SUMMARY | 2020-03-17 14:47 | XMS REPORT ---
Author Author Fatimah Stack Doctor Organization [facility] Address Unknown Phone Unavailable Care Team Providers Care Yarrow Gatherer Name Role Phone Migration, Doctor Unavailable Unavailable PROBLEMS ALLERGIES No Information ENCOUNTERS IMMUNIZATIONS No Known Immunizations SOCIAL HISTORY No smoking Hx information available REASON FOR VISIT PLAN OF CARE VITAL SIGNS MEDICATIONS No Known Medications RESULTS No Results PROCEDURES No Known procedures INSTRUCTIONS MEDICATIONS ADMINISTERED No Known Medications MEDICAL (GENERAL) HISTORY
--- OUTSIDE RECORDS SUMMARY | 2020-03-17 14:48 | XMS REPORT ---
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 Departure Clerk Name Role Phone Migration, Doctor Unavailable Unavailable PROBLEMS Type Condition ICD9-CM Code KCB56-LM Code Onset Dates Condition S tatus SNOMED Code Problem Anxiety F41.9 Active 99385459 Problem Essential (primary) hypertension I10 Active 34755309 Problem Diverticulitis of large inte simon without perforation or abscess without bleeding K57.32 Active 3167114 Problem Elevated LDL cholesterol level E78.0 Active 192698742 Problem Migraine with aura and without status migrainosu s, not intractable G43.109 Active 2839426 Problem Insomnia, unspecified type G47.00 Act nathan 819966784 Problem RUQ abdominal pain R10.11 Active 3 60731251 Problem Biliary dyskinesia K82.8 Active 1 71162780 Problem Other chronic pain G89.29 Active 8 4228188 Problem Tobacco abuse Z72.0 Active 398132 000 Problem Morbid obesity E66.01 Active 88224 6002 Problem Diverticulitis K57.92 Active 29199 6006 Problem Lumbago with sciatica, right side M54.41 Active 527930822 Problem Exacerbation of asthma, unsp ecified asthma severity, unspecified whether persistent J45.901 Active 204461089 Problem Diverticulitis of large inte simon, unspecified bleeding status, unspecified complication status K57.32 Active 4731443 Problem CAP (community acquired pneumonia) J18.9 Active 515678805 Problem Sleep apnea, unspecified type G47.30 Active 55565536 Problem BMI 45.0-49.9, adult Z68.42 Active 773937621 Problem Obstructive sleep apnea syndrome G47.33 Active 93777918 Problem Dysthymia F34.1 Active 83841303 ALLERGIES No Information ENCOUNTERS Encounter Location Date Diagnosis [facility] [address] [id number] [place] [id number] Feb, Dysthymia F34.1 ; Lumbago with sciatica, right side M54.41 and Morbid obesity E66.01 [facility] [address] [id number] [place] [id number] Feb, Exacerbation of asthma, unspecified asth ma severity, unspecified whether persistent J45.901 ; Thrush B37.0 and Morbid obesity E66.01 [facility] [address] [id number] [place] [id number] Feb, Morbid obesity E66.01 ; Essential (prima ry) hypertension I10 ; Lumbago with sciatica, right side M54.41 and Dysthymia F34.1 [facility] [address] 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 ; Dysthymia F34.1 ; Anxiety F41.9 and Essential (primary) hypertension I10 [facility] [address] [id number] [place] [id number] Oct, Essential (primary) hypertension I10 [facility] [address] [id number] [place] [address] [id number] Oct, Dental examination Z01.20 [facility] [address] [id number] [place] [id number] Sep, [facility] [address] [id number] [place] [id number] Sep, Dental examination Z01.20 an d Caries K02.9 [facility] [address] [id number] [place] [id number] 06 Sep, 2018 Dysthymia F34.1 and Diverticulitis K57.9 2 [facility] [address] [id number] [place] [id number] Sep, [facility] [place] [address] [facility] [id number] [place] [id number] Aug, Essential (primary) hypertension I10 ; D yspnea on exertion R06.09 ; Obstructive sleep apnea syndrome G47.33 and Tobacco abuse Z72.0 [facility] [address] [facility] [id number] [place] [id number] Aug, BMI 45.0-49.9, adult Z68.42 and Divertic ulitis K57.92 [facility] [address] [facility] [id number] [place] [id number] Jul, Lumbago with sciatica, right side M54.41 and Dysthymia F34.1 [facility] [address] [facility] [id number] [place] [id number] Jul, BMI 45.0-49.9, adult Z68.42 ; Dysthymia F34.1 ; Lumbago with sciatica, right side M54.41 and Essential (primary) hypertension I10 [facility] [address] [facility] [id number] [place] [id number] Jun, BMI 45.0-49.9, adult Z68.42 ; Essential (primary) hypertension I10 ; Dysthymia F34.1 ; Lumbago with sciatica, right side M54.41 and Mild intermittent asthma with acute exacerbation J45.21 [facility] [address] [facility] [id number] [place] [id number] Jun, [facility] [address] [facility] [id number] [place] [address] Jun, Chest congestion R09.89 ; Co ugh R05 and BMI 45.0-49.9, adult Z68.42 [place] [address] [facility] [id number] [id number] Jun, Dental examination Z01.20 [facility] [address] [facility] [id number] [place] [id number] May, Essential (primary) hypertension I10 ; L umbago with sciatica, right side M54.41 ; Anxiety F41.9 and BMI 45.0-49.9, adult Z68.42 [facility] [address] [id number] [id number] May, Essential (primary) hypertension I10 ; O ther chest pain R07.89 ; Dyspnea on exertion R06.09 ; Tobacco abuse Z72.0 ; Sleep apnea, unspecified type G47.30 ; BMI 45.0-49.9, adult Z68.42 and Morbid obesity E66.01 [facility] [address] [facility] [id number] [place] [address] 05 May, 2018 BMI 45.0-49.9, adult Z68.42 [facility] [place] [address] [facility] [id number] [place] [id number] May, BMI 45.0-49.9, adult Z68.42 ; Lumbago wi th sciatica, right side M54.41 ; Anxiety F41.9 and Essential (primary) hypertension I10 [facility] [address] [facility] [id number] [place] [address] Apr, [facility] [place] [address] [id number] [place] [id number] Apr, Anxiety F41.9 [facility] [place] [address] [id number] [place] [id number] Apr, Anxiety F41.9 [facility] [place] [address] [id number] [place] [id number] Apr, [facility] [address] [facility] [id number][place] [id number] Apr, Dental examination Z01.20 [facility] [place] [address] [id number] [place] [id number] Apr, Anxiety F41.9 [facility] [place] [address] [id number] [place] [id number] Apr, Anxiety F41.9 and Lumbago with sciatica, right side M54.41 [facility] [place] [address] [id number] [place] [id number] March, Anxiety F41.9 [facility] [address] [facility] [id number] [place] [id number] March, Diverticulitis of large intestine, unspe cified bleeding status, unspecified complication status K57.32 ; Anxiety F41.9 and Essential (primary) hypertension I10 [facility] [address] [facility] [id number] [place] [id number] March, RUQ abdominal pain R10.11 [facility] [address] [facility] [id number] 100[place] [address] Feb, Wheezing on auscultation R06 .2 [facility] [address] [facility] [id number] [place] [id number] Feb, Anxiety F41.9 [facility] [place] [address] [facility] [id number] [place] [id number] Feb, [facility] [address] [facility] [id number] [place] [id number] Jan, BMI 50.0-59.9, adult Z68.43 ; Anxiety F4 1.9 ; Chest pain, unspecified type R07.9 and Essential (primary) hypertension I10 [address] [id number][place] [id number] Jan, BMI 45.0-49.9, adult Z68.42 ; Morbid obe sity E66.01 ; Chest pain, non- cardiac R07.89 ; Anxiety F41.9 ; Essential (primary) hypertension I10 and Tobacco abuse Z72.[address] [id number][place] [id number] Jan, Essential (primary) hypertension I10 [facility] [address] [facility] [id number] [place] [id number] Dec, Essential (primary) hypertension I10 ; M igraine with aura and without status migrainosus, not intractable G43.109 ; Viral syndrome B34.9 and Lumbago with sciatica, right side M54.41 [facility] [place] [address] [facility] [id number] [place] [id number] Nov, BMI 45.0-49.9, adult Z68.42 ; Migraine w ith aura and without status migrainosus, not intractable G43.109 and Essential (primary) hypertension I10 [facility] [place] [address] [id number] [place] [id number] Nov, Essential (primary) hypertension I10 [facility] [place] [address] [id number] [place] [id number] Nov, BMI 45.0-49.9, adult Z68.42 ; Essential (primary) hypertension I10 ; Anxiety F41.9 ; Lumbago with sciatica, right side M54.41 and Other chronic pain G89.29 [facility] [place] [address] [id number] [place] [id number] Nov, [facility] [place] [address] [id number] [place] [id number] Aug, RUQ abdominal pain R10.11 [facility] [place] [address] [id number] [place] [id number] Aug, Essential (primary) hypertension I10 and Anxiety F41.9 [facility] [place] [address] [id number] [place] [id number] May, Essential (primary) hypertension I10 and Anxiety F41.9 [facility] [place] [address] [id number] [place] [id number] March, Diverticulitis of large intestine, unspe cified bleeding status, unspecified complication status K57.32 [facility] [address] [facility] [id number] [address] [address] March, [facility] [place] [address] [id number] [place] [id number] March, [facility] [place] [address] [id number] [place] [id number] March, Chest wall pain R07.89 and Dysuria R30.0 [facility] [place] [address] [id number] [place] [id number] March, Anxiety F41.9 [facility] [place] [address] [id number] [place] [id number] Feb, Biliary dyskinesia K82.8 [facility] [place] [address] [id number] [place] [id number] Feb, Biliary dyskinesia K82.8 [facility] [place] [address] [id number] [place] [id number] Jan, Essential (primary) hypertension I10 and RUQ abdominal pain R10.11 [facility] [place] [address] [id number] [place] [id number] Jan, Essential (primary) hypertension I10 and Anxiety F41.9 [facility] [place] [address] [id number] [place] [id number] Dec, Essential (primary) hypertension I10 [facility] [place] [address] [id number] [place] [id number] Nov, Migraine with aura and without status mi grainosus, not intractable G43.109 and Essential (primary) hypertension I10 [facility] [place] [address] [id number] [place] [id number] Nov, Anxiety F41.9 ; Migraine with aura and w ithout status migrainosus, not intractable G43.109 and Insomnia, unspecified type G47.00 [facility] [place] [address] [id number] [place] [id number] Oct, Migraine with aura and without status mi grainosus, not intractable G43.109 [facility] [place] [address] [facility] [id number] [place] [id number] Oct, Anxiety F41.9 and Essential (primary) hy pertension I10 [facility] [address] [facility] [id number] [address] [place] [address] Oct, [facility] [address] [facility] [id number] [address] [place] [address] Sep, [facility] [place] [address] [id number] [place] [id number] Sep, Diverticulitis of large intestine withou t perforation or abscess without bleeding K57.32 and Anxiety F41.9 [facility] [place] [address] [facility] [id number] [place] [id number] Aug, Diverticulitis of large intestine withou t perforation or abscess without bleeding K57.32 [facility] [address] [facility] [id number] [place] [address] Aug, [facility] [address] [facility] [id number] [place] [id number] Aug, [facility] [address] [facility] [id number] [address] [place] [address] Aug, [facility] [address] [id number] [place] [id number] Aug, [facility] [address] [facility] [id number] [place] [id number] Jul, Ingrown left big toenail L60.0 [facility] [id number] [place], [place] [address], [place] [id number] Jul, [facility] [place] [address] [id number] [place] [id number] Jul, Ingrowing toenail of right foot L60.0 [facility] [place] [address] [id number] [place] [id number] Apr, [facility] [place] [address] [id number] [place] [id number] Apr, RUQ abdominal pain R10.11 ; Fatty liver disease, nonalcoholic K76.0 ; Hx of hyperglycemia Z86.39 ; Elevated alanine aminotransferase (ALT) level R74.0 ; Elevated LDL cholesterol level E78.0 and Prediabetes R73.09 [facility] [address] [id number] [place] [id number] Apr, RUQ abdominal pain R10.11 ; Mild persist ent asthma without complication J45.30 ; Anxiety F41.9 and Essential (primary) hypertension I10 [facility] [address] [id number] [place] [id number] March, Wheezing R06.2 and Cough R05 [facility] [id number] [place] [address], [place] [id number] March, [facility] [address] [facility] [id number] [place] [id number] March, [facility] [address] [facility] [id number] [place] [id number] March, Acute severe exacerbation of asthma J45. 51 ; Cough R05 and Cough headache G44.83 [facility] [address] [facility] [id number] [place] [id number] Feb, Mild intermittent asthma with acute exac erbation J45.21 and Transient insomnia F51.02 [facility] [address] [facility] [id number] [place] [id number] Feb, Pigmented skin lesion of uncertain natur e L81.9 [facility] [address] [facility] [id number] [place] [id number] Feb, Anxiety F41.9 and Essential (primary) hy pertension I10 [facility] [address] [facility] [id number] [place] [id number] 31 Jan, 2016 [facility] [address] [facility] [id number] [place] [id number] 23 Jan, 2016 Routine gynecological examination Z01.41 9 and Encounter for Papanicolaou smear for cervical cancer screening Z12.4 [facility] [address] [facility] [id number] [place] [id number] 07 Jan, 2016 Essential (primary) hypertension I10 and Anxiety F41.9 [facility] [address] [facility] [id number] [place] [id number] 10 Dec, 2015 Essential (primary) hypertension I10 and Anxiety F41.9 [facility] [address] [facility] [id number] [place] [id number] Nov, Essential (primary) hypertension I10 [facility] [address] [id number] [place] [id number] Aug, [facility] [address] [facility] [id number] [place] [id number] Aug, CAP (community acquired pneumonia) J18.9 [facility] [address] [id number] [place] [id number] Aug, CAP (community acquired pneumonia) J18.[address] [facility] [address] [id number] [id number] Aug, CAP (community acquired pneumonia) J18.9 [facility] [place] [address] [id number] [place] [id number] Aug, CAP (community acquired pneumonia) J18.9 and Essential (primary) hypertension I10 [facility] [place] [address] [id number] [place] [id number] Aug, CAP (community acquired pneumonia) J18.9 [facility] [address] [id number] [address] [place] [address] Apr, [facility] [address] [facility] [id number] [address] [place] [address] Feb, [facility] [address] [facility] [id number] [address] [place] [phone] Feb, [facility] [place] [address] [id number] [place] [id number] Jan, [facility] [address] [facility] [id number] [address] [place] [phone] Jan, [facility] [address] [facility] [id number] [address] [place] [address] Nov, [facility] [place] [address] [id number] [place] [id number] Nov, [facility] [address] [id number] [address] [place] [address] Nov, [facility] [place] [address] [id number] [place] [id number] Oct, [facility] [address] [id number] [address] [place] [address] Oct, [facility] [place] [address] [id number] [place] [id number] Sep, [facility] [address] [id number] [address] [place] [address] Sep, [facility] [place] [address] [id number] [place] [id number] Jun, [facility] [address] [facility] [id number] [address] [place] [phone] Jun, [facility] [place] [address] [id number] [place] [id number] Jun, [facility] [address] [facility] [id number] [address] [place] [address] Jun, [facility] [place] [address] [id number] [place] [id number] May, [facility] [address] [facility] [id number] [address] [place] [phone] May, [facility] [place] [address] [id number] [place] [id number] Dec, [facility] [address] [facility] [id number] [address] [place] [id number] Dec, [facility] [place] [address] [id number] [place] [id number] Feb, [facility] [place] [address] [id number] [place] [id number] Feb, [facility] [place] [address] [id number] [place] [id number] Feb, [facility] [address] [facility] [id number] [address] [place] [address], [place] [address] 16 Feb, 2013 [facility] [place] [address] [id number] [place] [id number] 15 Feb, 2013 [facility] [place] [address] [id number] [place] [id number] Feb, [facility] [address] [facility] [id number] [address] [place] [id number] 14 Feb, 2013 [facility] [address] [facility] [id number] [address] [place] [phone] Feb, [facility] [address] [id number] [address] [place] [address] Feb, [facility] [address] [id number] [place] [id number] Feb, [facility] [place] [address] [id number] [place] [id number] Feb, [facility] [place] [address] [id number] [place] [id number] Jan, [facility] [place] [address] [id number] [place] [id number] Nov, [facility] [address] [id number] [place] [id number] Nov, [facility] [address] [facility] [id number] [address] [place] [phone] Oct, [facility] [address] [facility] [id number] [address] [place] [phone] Apr, [facility] [address] [facility] [id number] [address] [place] [id number] Dec, [facility] [address] [facility] [id number] [address] [place] [phone] Nov, [facility] [address] [facility] [id number] [address] [place] [phone] Oct, [facility] [address] [facility] [id number] [address] [place] [phone] Oct, [facility] [address] [facility] [id number] [address] [place] [phone] Sep, [facility] [address] [facility] [id number] [address] [place] [phone] Sep, [facility] [address] [facility] [id number] [address] [place] [id number] Sep, IMMUNIZATIONS No Known Immunizations SOCIAL HISTORY [...]
--- OUTSIDE RECORDS SUMMARY | 2020-03-17 14:48 | XMS REPORT ---
Author Author Fatimah Stack Doctor Organization [facility] Address Unknown Phone Unavailable Care Team Providers Care Med Surg Nurse Name Role Phone Migration, Doctor Unavailable Unavailable PROBLEMS Type Condition ICD9-CM Code SPO85-RM Code Onset Dates Condition S tatus SNOMED Code Problem Anxiety F41.9 Active 50729788 Problem Essential (primary) hypertension I10 Active 47265758 Problem Diverticulitis of large inte simon without perforation or abscess without bleeding K57.32 Active 2893812 Problem Elevated LDL cholesterol level E78.0 Active 182429558 Problem Migraine with aura and without status migrainosu s, not intractable G43.109 Active 5260502 Problem Insomnia, unspecified type G47.00 Act nathan 664405187 Problem RUQ abdominal pain R10.11 Active 3 06785257 Problem Biliary dyskinesia K82.8 Active 1 23007762 Problem Other chronic pain G89.29 Active 8 4072754 Problem Tobacco abuse Z72.0 Active 951347 000 Problem Morbid obesity E66.01 Active 43859 6002 Problem Diverticulitis K57.92 Active 53409 6006 Problem Lumbago with sciatica, right side M54.41 Active 705999832 Problem Exacerbation of asthma, unsp ecified asthma severity, unspecified whether persistent J45.901 Active 176510822 Problem Diverticulitis of large inte simon, unspecified bleeding status, unspecified complication status K57.32 Active 2976116 Problem CAP (community acquired pneumonia) J18.9 Active 507182289 Problem Sleep apnea, unspecified type G47.30 Active 30589127 Problem BMI 45.0-49.9, adult Z68.42 Active 486363725 Problem Obstructive sleep apnea syndrome G47.33 Active 12604368 Problem Dysthymia F34.1 Active 28762786 ALLERGIES No Information ENCOUNTERS Encounter Location Date Diagnosis [facility] [address] [id number] [place] [id number] Feb, [facility] [address] [facility] [id number] [place] [id number] Feb, Dysthymia F34.1 ; Lumbago with sciatica, right side M54.41 and Morbid obesity E66.01 [facility] [address] [id number] [place] [id number] Feb, Exacerbation of asthma, unspecified asth ma severity, unspecified whether persistent J45.901 ; Thrush B37.0 and Morbid obesity E66.01 [facility] [address] [id number] [place] [id number] Feb, Morbid obesity E66.01 ; Essential (prima ry) hypertension I10 ; Lumbago with sciatica, right side M54.41 and Dysthymia F34.1 [facility] [address] [id number] [place] [id number] Dec, BMI 45.0-49.9, adult Z68.42 ; Phantom pa in G54.6 ; Anxiety F41.9 and Dysthymia F34.1 [facility] [id number] [place] [address], [place] [id number] Nov, BMI 45.0-49.9, adult Z68.42 ; 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, 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 ; Dysthymia F34.1 ; Anxiety F41.9 and Essential (primary) hypertension I10 [facility] [address] [id number] [place] [id number] Oct, Essential (primary) hypertension I10 [facility] [id number] [place] [address] [id number] Oct, Dental examination Z01.20 [facility] [address] [id number] [place] [id number] Sep, [facility] [address] [id number] [place] [address] [id number] Sep, Dental examination Z01.20 an d Caries K02.9 [facility] [address] [id number] [place] [id number] Sep, Dysthymia F34.1 and Diverticulitis K57.9 2 [facility] [place] [address] [facility] [id number] [place] [id number] Sep, [facility] [address] [id number] [id number] Aug, Essential (primary) hypertension I10 ; D yspnea on exertion R06.09 ; Obstructive sleep apnea syndrome G47.33 and Tobacco abuse Z72.0 [facility] [place] [address] [facility] [id number] [place] [id number] Aug, BMI 45.0-49.9, adult Z68.42 and Divertic ulitis K57.92 [facility] [address] [facility] [id number] [place] [id number] Jul, Lumbago with sciatica, right side M54.41 and Dysthymia F34.1 [facility] [place] [address] [id number] [place] [id number] Jul, BMI 45.0-49.9, adult Z68.42 ; Dysthymia F34.1 ; Lumbago with sciatica, right side M54.41 and Essential (primary) hypertension I10 [facility] [place] [id number] [place] [id number] Jun, BMI 45.0-49.9, adult Z68.42 ; Essential (primary) hypertension I10 ; Dysthymia F34.1 ; Lumbago with sciatica, right side M54.41 and Mild intermittent asthma with acute exacerbation J45.21 [facility] [address] [facility] [id number] [place] [id number] Jun, [facility] [address] [facility] [id number] 100[address] [place] [address] Jun, Chest congestion R09.89 ; Co ugh R05 and BMI 45.0-49.9, adult Z68.42 [facility] [address] [id number] [id number] Jun, Dental examination Z01.20 [facility] [address] [facility] [id number] [place] [id number] May, Essential (primary) hypertension I10 ; L umbago with sciatica, right side M54.41 ; Anxiety F41.9 and BMI 45.0-49.9, adult Z68.42 [facility] [address] [address] [id number] [id number] May, Essential (primary) hypertension I10 ; O ther chest pain R07.89 ; Dyspnea on exertion R06.09 ; Tobacco abuse Z72.0 ; Sleep apnea, unspecified type G47.30 ; BMI 45.0-49.9, adult Z68.42 and Morbid obesity E66.01 [facility] [address] [facility] [id number] [address] [place] [address] May, BMI 45.0-49.9, adult Z68.42 [facility] [place] [address] [id number] [place] [id number] May, BMI 45.0-49.9, adult Z68.42 ; Lumbago wi th sciatica, right side M54.41 ; Anxiety F41.9 and Essential (primary) hypertension I10 [facility] [address] [facility] [id number] [address] [place] [address] Apr, [facility] [place] [address] [id number] [place] [id number] Apr, Anxiety F41.9 [facility] [place] [address] [id number] [place] [id number] Apr, Anxiety F41.9 [facility] [place] [address] [id number] [place] [id number] Apr, [facility] [place] [address] [facility] [address] [id number] [place] [id number] Apr, Dental examination Z01.20 [facility] [place] [address] [id number] [place] [id number] Apr, Anxiety F41.9 [facility] [place] [address] [id number] [place] [id number] Apr, Anxiety F41.9 and Lumbago with sciatica, right side M54.41 [facility] [address] [facility] [id number] [place] [id number] March, Anxiety F41.9 [facility] [address] [facility] [id number] [place] [id number] March, Diverticulitis of large intestine, unspe cified bleeding status, unspecified complication status K57.32 ; Anxiety F41.9 and Essential (primary) hypertension I10 [facility] [address] [facility] [id number] [place] [id number] March, RUQ abdominal pain R10.11 [facility] [address] [facility] [id number] [address] [place] [address] Feb, Wheezing on auscultation R06 .2 [facility] [address] [facility] [id number] [place] [id number] Feb, Anxiety F41.9 [facility] [address] [facility] [id number] [place] [id number] Feb, [facility] [place] [address] [facility] [id number] [place] [id number] Jan, BMI 50.0-59.9, adult Z68.43 ; Anxiety F4 1.9 ; Chest pain, unspecified type R07.9 and Essential (primary) hypertension I10 [facility] [address] [id number] [id number] Jan, BMI 45.0-49.9, adult Z68.42 ; Morbid obe sity E66.01 ; Chest pain, non- cardiac R07.89 ; Anxiety F41.9 ; Essential (primary) hypertension I10 and Tobacco abuse Z72.0 [facility] [address] [id number] [place] [id number] Jan, Essential (primary) hypertension I10 [facility] [address] [facility] [id number] [place] [id number] Dec, Essential (primary) hypertension I10 ; M igraine with aura and without status migrainosus, not intractable G43.109 ; Viral syndrome B34.9 and Lumbago with sciatica, right side M54.41 [facility] [place] [address] [id number] [place] [id number] Nov, BMI 45.0-49.9, adult Z68.42 ; Migraine w ith aura and without status migrainosus, not intractable G43.109 and Essential (primary) hypertension I10 [facility] [place] [address] [id number] [place] [id number] Nov, Essential (primary) hypertension I10 [facility] [place] [address] [id number] [place] [id number] Nov, BMI 45.0-49.9, adult Z68.42 ; Essential (primary) hypertension I10 ; Anxiety F41.9 ; Lumbago with sciatica, right side M54.41 and Other chronic pain G89.29 [facility] [place] [address] [id number] [place] [id number] Nov, [facility] [place] [address] [id number] [place] [id number] Aug, RUQ abdominal pain R10.11 [facility] [place] [address] [id number] [place] [id number] Aug, Essential (primary) hypertension I10 and Anxiety F41.9 [facility] [address] [id number] [place] [id number] May, Essential (primary) hypertension I10 and Anxiety F41.9 [facility] [place] [id number] [place] [id number] March, Diverticulitis of large intestine, unspe cified bleeding status, unspecified complication status K57.32 [facility] [address] [facility] [id number] [address] [place] [address] March, [facility] [place] [address] [facility] [id number] [place] [id number] March, [facility] [address] [id number] [place] [id number] March, Chest wall pain R07.89 and Dysuria R30.0 [facility] [place] [address] [id number] [place] [id number] March, Anxiety F41.9 [facility] [place] [address] [id number] [place] [id number] Feb, Biliary dyskinesia K82.8 [facility] [place] [address] [id number] [place] [id number] Feb, Biliary dyskinesia K82.8 [facility] [place] [address] [id number] [place] [id number] Jan, Essential (primary) hypertension I10 and RUQ abdominal pain R10.11 [facility] [place] [address] [id number] [place] [id number] Jan, Essential (primary) hypertension I10 and Anxiety F41.9 [facility] [place] [address] [id number] [place] [id number] Dec, Essential (primary) hypertension I10 [facility] [place] [address] [id number] [place] [id number] Nov, Migraine with aura and without status mi grainosus, not intractable G43.109 and Essential (primary) hypertension I10 [facility] [place] [address] [id number] [place] [id number] Nov, Anxiety F41.9 ; Migraine with aura and w ithout status migrainosus, not intractable G43.109 and Insomnia, unspecified type G47.00 [facility] [place] [address] [id number] [place] [id number] Oct, Migraine with aura and without status mi grainosus, not intractable G43.109 [facility] [place] [address] [id number] [place] [id number] Oct, Anxiety F41.9 and Essential (primary) hy pertension I10 [facility] [address] [facility] [id number] [address] [place] [address] Oct, [facility] [address] [facility] [id number] [address] [place] [address] Sep, [facility] [place] [address] [facility] [id number] [place] [id number] Sep, Diverticulitis of large intestine withou t perforation or abscess without bleeding K57.32 and Anxiety F41.9 [facility] [place] [id number] [place] [id number] Aug, Diverticulitis of large intestine withou t perforation or abscess without bleeding K57.32 [facility] [address] [facility] [id number] [address] [place] [address] Aug, [facility] [id number] [place] [address], [place] [id number] Aug, [facility] [address] [facility] [id number] [address] [place] [phone] Aug, [facility] [place] [id number] [place] [id number] Aug, [facility] [id number] [place] [address], [place] [id number] Jul, Ingrown left big toenail L60.0 [facility] [place] [id number] [place] [address], [place] [id number] Jul, [facility] [id number] [place], [place] [address], [place] [id number] Jul, Ingrowing toenail of right foot L60.0 [facility] [place] [id number] [place] [id number] Apr, [facility] [id number] [place] [address], [place] [id number] Apr, RUQ abdominal pain R10.11 ; Fatty liver disease, nonalcoholic K76.0 ; Hx of hyperglycemia Z86.39 ; Elevated alanine aminotransferase (ALT) level R74.0 ; Elevated LDL cholesterol level E78.0 and Prediabetes R73.09 [facility] [id number] [place] [address], [place] [id number] Apr, 2016 RUQ abdominal pain R10.11 ; Mild persist ent asthma without complication J45.30 ; Anxiety F41.9 and Essential (primary) hypertension I10 [facility] [id number] [place] [address], [place] [id number] March, Wheezing R06.2 and Cough R05 [facility] [address] [facility] [id number] [place] [id number] March, [facility] [address] [id number] [place] [id number] March, [facility] [address] [facility] [id number] [place] [id number] March, Acute severe exacerbation of asthma J45. 51 ; Cough R05 and Cough headache G44.83 [facility] [address] [facility] [id number] [place] [id number] Feb, Mild intermittent asthma with acute exac erbation J45.21 and Transient insomnia F51.02 [facility] [address] [facility] [id number] [place] [id number] Feb, Pigmented skin lesion of uncertain natur e L81.9 [facility] [address] [facility] [id number] [place] [id number] Feb, Anxiety F41.9 and Essential (primary) hy pertension I10 [facility] [address] [facility] [id number] [place] [id number] Jan, [facility] [address] [facility] [id number] [place] [id number] Jan, Routine gynecological examination Z01.41 9 and Encounter for Papanicolaou smear for cervical cancer screening Z12.4 [facility] [address] [facility] [id number] [place] [id number] Jan, Essential (primary) hypertension I10 and Anxiety F41.9 [facility] [address] [facility] [id number] [place] [id number] Dec, Essential (primary) hypertension I10 and Anxiety F41.9 [facility] [address] [facility] [id number] [place] [id number] Nov, Essential (primary) hypertension I10 [facility] [address] [id number] [place] [id number] Aug, [facility] [address] [facility] [id number] [place] [id number] Aug, CAP (community acquired pneumonia) J18.9 [facility] [place] [address] [id number] [place] [id number] Aug, CAP (community acquired pneumonia) J18.[address] [facility] [address] [id number] [place] [id number] Aug, CAP (community acquired pneumonia) J18.9 [facility] [place] [address] [id number] [place] [id number] Aug, CAP (community acquired pneumonia) J18.9 and Essential (primary) hypertension I10 [facility] [place] [address] [id number] [place] [id number] Aug, CAP (community acquired pneumonia) J18.9 [facility] [place] [address] [id number] [address] [place] [address] Apr, [facility] [address] [id number] [address] [place] [phone] Feb, [facility] [address] [id number] [address] [place] [address] Feb, [facility] [place] [address] [id number] [place] [id number] Jan, [facility] [address] [facility] [id number] [address] [place] [address] Jan, [facility] [place] [facility] [address] [facility] [id number] [address] [place] [address] Nov, [facility] [place] [address] [id number] [place] [id number] Nov, [facility] [address] [id number] [address] [place] [address] Nov, [facility] [place] [address] [id number] [place] [id number] Oct, [facility] [address] [id number] [address] [place] [address], [place] [address] Oct, [facility] [place] [address] [id number] [place] [id number] Sep, [facility] [address] [id number] [facility] [place] [address] Sep, [facility] [place] [address] [id number] [place] [id number] Jun, [facility] [address] [id number] [facility] [place] [place] [address] Jun, [facility] [place] [address] [id number] [place] [id number] Jun, [facility] [address] [id number] [facility] [place] [place] [address] Jun, [facility] [place] [address] [id number] [place] [id number] May, [facility] [address] [id number] [facility] [place] [address] May, [facility] [place] [address] [id number] [place] [id number] Dec, [facility] [address] [id number] [address] [place] [address], [place] [address] Dec, [facility] [place] [address] [id number] [place] [id number] Feb, [facility] [place] [address] [id number] [place] [id number] Feb, [facility] [place] [address] [id number] [place] [id number] Feb, [facility] [address] [id number] [facility] [place] [address] 16 Feb, 2013 [facility] [place] [address] [id number] [place] [id number] 15 Feb, 2013 [facility] [place] [address] [id number] [place] [id number] Feb, [facility] [address] [id number] [address] [place] [address], [place] [address] Feb, [facility] [address] [id number] [address] [place] [address] Feb, [facility] [address] [id number] [address] [place] [address] Feb, [facility] [place] [address] [id number] [place] [id number] Feb, [facility] [place] [address] [id number] [place] [id number] Feb, [facility] [place] [address] [id number] [place] [id number] Jan, [facility] [place] [address] [id number] [place] [id number] Nov, [facility] [place] [address] [id number] [place] [id number] Nov, [facility] [address] [id number] [address] [place] [phone] Oct, [facility] [address] [id number] [address] [place] [address] Apr, [facility] [address] [id number] [address] [place] [address] Dec, [facility] [address] [facility] [id number] [address] [place] [address] Nov, [facility] [address] [id number] [address] [place] [phone] Oct, [facility] [address] [id number] [address] [place] [phone] Oct, [facility] [address] [id number] [address] [place] [address] Sep, [facility] [address] [facility] [id number] [address] [place] [address] Sep, [facility] [address] [facility] [id number] [address] [place] [address] Sep, IMMUNIZATIONS No Known Immunizations SOCIAL HISTORY Never Assessed REASON FOR VISIT EMR-[facility] PLAN OF CARE VITAL SIGNS MEDICATIONS Unknown [...]
--- OUTSIDE RECORDS SUMMARY | 2020-03-17 14:48 | XMS REPORT ---
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 Warehouse Material Handler Name Role Phone Migration, Doctor Unavailable Unavailable PROBLEMS Type Condition ICD9-CM Code JDX05-HA Code Onset Dates Condition S tatus SNOMED Code Problem Anxiety F41.9 Active 80628038 Problem Essential (primary) hypertension I10 Active 44276460 Problem Diverticulitis of large inte simon without perforation or abscess without bleeding K57.32 Active 0853200 Problem Elevated LDL cholesterol level E78.0 Active 529188761 Problem Migraine with aura and without status migrainosu s, not intractable G43.109 Active 9651025 Problem Insomnia, unspecified type G47.00 Act nathan 569290484 Problem RUQ abdominal pain R10.11 Active 3 22543474 Problem Biliary dyskinesia K82.8 Active 1 52589196 Problem Other chronic pain G89.29 Active 8 9196360 Problem Tobacco abuse Z72.0 Active 994080 000 Problem Morbid obesity E66.01 Active 21512 6002 Problem Diverticulitis K57.92 Active 59075 6006 Problem Lumbago with sciatica, right side M54.41 Active 559256132 Problem Exacerbation of asthma, unsp ecified asthma severity, unspecified whether persistent J45.901 Active 908092770 Problem Diverticulitis of large inte simon, unspecified bleeding status, unspecified complication status K57.32 Active 4030593 Problem CAP (community acquired pneumonia) J18.9 Active 288332321 Problem Sleep apnea, unspecified type G47.30 Active 20462965 Problem BMI 45.0-49.9, adult Z68.42 Active 629811692 Problem Obstructive sleep apnea syndrome G47.33 Active 52542473 Problem Dysthymia F34.1 Active 75215812 ALLERGIES Substance Reaction Event Type Date Status Lisinopril 10 Mg Tablet cough Non Drug Allergy Feb, Active ENCOUNTERS Encounter Location Date Diagnosis [place] [address] [address] [id number] [id number] Feb, Dysthymia F34.1 ; Lumbago with sciatica, right side M54.41 and Morbid obesity E66.01 [facility] [address] [place] [id number] [place] [address], [place] [id number] Feb, Exacerbation of asthma, unspecified asth ma severity, unspecified whether persistent J45.901 ; Thrush B37.0 and Morbid obesity E66.01 [facility] [address] [id number] [place] [address], [place] [id number] Feb, Morbid obesity E66.01 ; Essential (prima ry) hypertension I10 ; Lumbago with sciatica, right side M54.41 and Dysthymia F34.1 [place] [address], [place] [id number] Dec, BMI 45.0-49.9, adult Z68.42 ; Phantom pa in G54.6 ; Anxiety F41.9 and Dysthymia F34.1 [place] [address] [address] [place] [id number] [place] [address], [place] [id number] Nov, BMI 45.0-49.9, adult Z68.42 ; 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20 an d Caries K02.9 [facility] [id number] [place] [id number] Sep, Dysthymia F34.1 and Diverticulitis K57.9 2 [facility] [address] [facility] [id number] [place] [id number] Sep, [facility] [address] [facility] [address] [id number] [id number] Aug, Essential (primary) hypertension I10 ; D yspnea on exertion R06.09 ; Obstructive sleep apnea syndrome G47.33 and Tobacco abuse Z72.0 [facility] [address] [facility] [id number] [place] [id number] Aug, BMI 45.0-49.9, adult Z68.42 and Divertic ulitis K57.92 [facility] [address] [facility] [id number] [place] [id number] Jul, Lumbago with sciatica, right side M54.41 and Dysthymia F34.1 [facility] [address] [facility] [id number] [place] [id number] Jul, BMI 45.0-49.9, adult Z68.42 ; Dysthymia F34.1 ; Lumbago with sciatica, right side M54.41 and Essential (primary) hypertension I10 [facility] [address] [facility] [id number] [place] [id number] Jun, BMI 45.0-49.9, adult Z68.42 ; Essential (primary) hypertension I10 ; Dysthymia F34.1 ; Lumbago with sciatica, right side M54.41 and Mild intermittent asthma with acute exacerbation J45.21 [facility] [address] [facility] [id number] [place] [id number] Jun, [facility] [address] [facility] [id number] 100[place] [address] Jun, Chest congestion R09.89 ; Co ugh R05 and BMI 45.0-49.9, adult Z68.42 [facility] [address] [facility] [id number] [id number] Jun, Dental examination Z01.20 [facility] [address] [facility] [id number] [place] [id number] May, Essential (primary) hypertension I10 ; L umbago with sciatica, right side M54.41 ; Anxiety F41.9 and BMI 45.0-49.9, adult Z68.42 [facility] [address] [id number] [id number] May, Essential (primary) hypertension I10 ; O ther chest pain R07.89 ; Dyspnea on exertion R06.09 ; Tobacco abuse Z72.0 ; Sleep apnea, unspecified type G47.30 ; BMI 45.0-49.9, adult Z68.42 and Morbid obesity E66.01 [facility] [address] [facility] [id number] [address] [place] [address] May, BMI 45.0-49.9, adult Z68.42 [facility] [place] [address] [id number] [place] [id number] May, BMI 45.0-49.9, adult Z68.42 ; Lumbago wi th sciatica, right side M54.41 ; Anxiety F41.9 and Essential (primary) hypertension I10 [facility] [address] [id number] [address] [place] [address] Apr, [facility] [place] [address] [id number] [place] [id number] Apr, Anxiety F41.9 [facility] [place] [address] [id number] [place] [id number] Apr, Anxiety F41.9 [facility] [place] [address] [id number] [place] [id number] Apr, [facility] [address] [id number] [place] [id number] Apr, Dental examination Z01.20 [facility] [place] [address] [id number] [place] [id number] Apr, Anxiety F41.9 [facility] [place] [address] [id number] [place] [id number] Apr, Anxiety F41.9 and Lumbago with sciatica, right side M54.41 [facility] [place] [address] [id number] [place] [id number] March, Anxiety F41.9 [facility] [place] [address] [facility] [id number] [place] [id number] March, Diverticulitis of large intestine, unspe cified bleeding status, unspecified complication status K57.32 ; Anxiety F41.9 and Essential (primary) hypertension I10 [facility] [address] [facility] [id number] [place] [id number] March, RUQ abdominal pain R10.11 [facility] [address] [facility] [id number] [address] [place] [address] Feb, Wheezing on auscultation R06 .2 [facility] [place] [address] [facility] [id number] [place] [id number] Feb, Anxiety F41.9 [facility] [id number] [place] [id number] Feb, [facility] [address] [place] [id number] [place] [id number] Jan, BMI 50.0-59.9, adult Z68.43 ; Anxiety F4 1.9 ; Chest pain, unspecified type R07.9 and Essential (primary) hypertension I10 [place] [address] [facility] [address] [id number] [id number] Jan, BMI 45.0-49.9, adult Z68.42 ; Morbid obe sity E66.01 ; Chest pain, non- cardiac R07.89 ; Anxiety F41.9 ; Essential (primary) hypertension I10 and Tobacco abuse Z72.0 [facility] [address] [facility] [address] [id number][place] [id number] Jan, Essential (primary) hypertension I10 [facility] [address] [facility] [id number] [place] [id number] Dec, Essential (primary) hypertension I10 ; M igraine with aura and without status migrainosus, not intractable G43.109 ; Viral syndrome B34.9 and Lumbago with sciatica, right side M54.41 [facility] [address] [id number] [place] [id number] Nov, BMI 45.0-49.9, adult Z68.42 ; Migraine w ith aura and without status migrainosus, not intractable G43.109 and Essential (primary) hypertension I10 [facility] [place] [address] [id number] [place] [id number] Nov, Essential (primary) hypertension I10 [facility] [place] [address] [id number] [place] [id number] Nov, BMI 45.0-49.9, adult Z68.42 ; Essential (primary) hypertension I10 ; Anxiety F41.9 ; Lumbago with sciatica, right side M54.41 and Other chronic pain G89.29 [facility] [place] [address] [id number] [place] [id number] Nov, [facility] [place] [address] [id number] [place] [id number] Aug, RUQ abdominal pain R10.11 [facility] [place] [address] [id number] [place] [id number] Aug, Essential (primary) hypertension I10 and Anxiety F41.9 [facility] [place] [address] [id number] [place] [id number] May, Essential (primary) hypertension I10 and Anxiety F41.9 [facility] [place] [address] [id number] [place] [id number] March, Diverticulitis of large intestine, unspe cified bleeding status, unspecified complication status K57.32 [facility] [address] [facility] [id number] [address] [place] [address] March, [facility] [place] [address] [id number] [place] [id number] March, [facility] [place] [address] [id number] [place] [id number] March, Chest wall pain R07.89 and Dysuria R30.0 [facility] [place] [address] [id number] [place] [id number] March, Anxiety F41.9 [facility] [place] [address] [id number] [place] [id number] Feb, Biliary dyskinesia K82.8 [facility] [place] [address] [id number] [place] [id number] Feb, Biliary dyskinesia K82.8 [facility] [place] [address] [id number] [place] [id number] Jan, Essential (primary) hypertension I10 and RUQ abdominal pain R10.11 [facility] [place] [address] [id number] [place] [id number] Jan, Essential (primary) hypertension I10 and Anxiety F41.9 [facility] [place] [address] [id number] [place] [id number] Dec, Essential (primary) hypertension I10 [facility] [place] [address] [id number] [place] [id number] Nov, Migraine with aura and without status mi grainosus, not intractable G43.109 and Essential (primary) hypertension I10 [facility] [place] [address] [id number] [place] [id number] Nov, Anxiety F41.9 ; Migraine with aura and w ithout status migrainosus, not intractable G43.109 and Insomnia, unspecified type G47.00 [facility] [place] [address] [id number] [place] [id number] Oct, Migraine with aura and without status mi grainosus, not intractable G43.109 [facility] [place] [address] [id number] [place] [id number] Oct, Anxiety F41.9 and Essential (primary) hy pertension I10 [facility] [address] [place] [id number] [address] [place] [address] Oct, [facility] [address] [facility] [id number] [address] [place] [address] Sep, [facility] [place] [address] [facility] [id number] [place] [id number] Sep, Diverticulitis of large intestine withou t perforation or abscess without bleeding K57.32 and Anxiety F41.9 [facility] [place] [address] [id number] [place] [id number] Aug, Diverticulitis of large intestine withou t perforation or abscess without bleeding K57.32 [facility] [address] [facility] [id number] [place] [address] Aug, [facility] [place] [address] [id number] [place] [id number] Aug, [facility] [address] [facility] [id number] [address] [place] [address] Aug, [facility] [place] [address] [id number] [place] [id number] Aug, [facility] [place] [address] [id number] [place] [id number] Jul, Ingrown left big toenail L60.0 [facility] [place] [address] [id number] [place] [id number] Jul, [facility] [place] [address] [id number] [place] [id number] Jul, Ingrowing toenail of right foot L60.0 [facility] [place] [address] [id number] [place] [id number] Apr, [facility] [place] [address] [id number] [place] [id number] Apr, RUQ abdominal pain R10.11 ; Fatty liver disease, nonalcoholic K76.0 ; Hx of hyperglycemia Z86.39 ; Elevated alanine aminotransferase (ALT) level R74.0 ; Elevated LDL cholesterol level E78.0 and Prediabetes R73.09 [facility] [place] [address] [id number] [place] [id number] Apr, RUQ abdominal pain R10.11 ; Mild persist ent asthma without complication J45.30 ; Anxiety F41.9 and Essential (primary) hypertension I10 [facility] [address] [place] [id number] [place] [id number] March, Wheezing R06.2 and Cough R05 [facility] [address] [facility] [id number] [place] [id number] March, [facility] [address] [facility] [id number] [place] [id number] March, [facility] [address] [id number] [place] [id number] March, Acute severe exacerbation of asthma J45. 51 ; Cough R05 and Cough headache G44.83 [facility] [address] [facility] [id number] [place] [id number] Feb, Mild intermittent asthma with acute exac erbation J45.21 and Transient insomnia F51.02 [facility] [address] [facility] [id number] [place] [id number] Feb, Pigmented skin lesion of uncertain natur e L81.9 [facility] [address] [facility] [id number] [place] [id number] Feb, Anxiety F41.9 and Essential (primary) hy pertension I10 [facility] [address] [facility] [id number] [place] [id number] Jan, [facility] [address] [facility] [id number] [place] [id number] Jan, Routine gynecological examination Z01.41 9 and Encounter for Papanicolaou smear for cervical cancer screening Z12.4 [facility] [address] [facility] [id number] [place] [id number] 07 Jan, 2016 Essential (primary) hypertension I10 and Anxiety F41.9 [facility] [address] [facility] [id number] [place] [id number] 10 Dec, 2015 Essential (primary) hypertension I10 and Anxiety F41.9 [facility] [address] [facility] [id number] [place] [id number] Nov, Essential (primary) hypertension I10 [facility] [address] [id number] [place] [id number] Aug, [facility] [address] [facility] [id number] [place] [id number] Aug, CAP (community acquired pneumonia) J18.9 [facility] [place] [address] [id number] [place] [id number] Aug, CAP (community acquired pneumonia) J18.9 [facility] [address] [facility] [address] [id number] [place] [id number] Aug, CAP (community acquired pneumonia) J18.9 [facility] [place] [address] [id number] [place] [id number] Aug, CAP (community acquired pneumonia) J18.9 and Essential (primary) hypertension I10 [facility] [place] [address] [id number] [place] [id number] Aug, CAP (community acquired pneumonia) J18.9 [facility] [place] [facility] [address] [id number] [address] [place] [address] Apr, [facility] [place] [address] [id number] [address] [place] [address] Feb, [facility] [address] [id number] [address] [place] [address] Feb, [facility] [place] [address] [id number] [place] [id number] Jan, [facility] [place] [address] [facility] [id number] [address] [place] [address] Jan, [facility] [address] [id number] [address] [place] [address] Nov, [facility] [place] [address] [id number] [place] [id number] Nov, [facility] [place] [facility] [address] [id number] [address] [place] [address] Nov, [facility] [place] [address] [id number] [place] [id number] Oct, [facility] [place] [facility] [address] [id number] [address] [place] [address] Oct, [facility] [place] [address] [id number] [place] [id number] Sep, [facility] [address] [id number] [facility] [place] [address] Sep, [facility] [place] [address] [id number] [place] [id number] Jun, [facility] [address] [id number] [facility] [place] [address] Jun, [facility] [place] [address] [id number] [place] [id number] Jun, [facility] [address] [id number] [facility] [place] [address] Jun, [facility] [place] [address] [id number] [place] [id number] May, [facility] [address] [id number] [address] [place] [address], [place] [address] May, [facility] [place] [address] [id number] [place] [id number] Dec, [facility] [address] [id number] [address] [place] [address], [place] [address] Dec, [facility] [place] [address] [id number] [place] [id number] Feb, [facility] [place] [address] [id number] [place] [id number] Feb, [facility] [place] [address] [id number] [place] [id number] Feb, [facility] [address] [id number] [address] [place] [address], [place] [address] 16 Feb, 2013 [facility] [place] [address] [id number] [place] [id number] 15 Feb, 2013 [facility] [place] [address] [id number] [place] [id number] Feb, [facility] [address] [id number] [address] [place] [address], [place] [address] Feb, [facility] [address] [id number] [address] [place] [address] 13 Feb, 2013 [facility] [address] [id number] [address] [place] [address] Feb, [facility] [place] [address] [id number] [place] [id number] Feb, [facility] [place] [address] [id number] [place] [id number] Feb, [facility] [place] [address] [id number] [place] [id number] Jan, [facility] [place] [address] [id number] [place] [id number] Nov, [facility] [place] [address] [id number] [place] [id number] Nov, [facility] [address] [facility] [id number] [address] [place] [address] Oct, [facility] [address] [facility] [id number] [address] [place] [address] Apr, [facility] [address] [facility] [id number] [address] [place] [address] Dec, [facility] [address] [facility] [id number] [address] [place] [address] Nov, [facility] [address] [facility] [id number] [address] [place] [address] Oct, [facility] [address] [facility] [id number] [address] [place] [address] Oct, [facility] [address] [facility] [id number] [address] [place] [address] Sep, [facility] [address] [facility] [id number] [address] [place] [id number] Sep, [facility] [address] [facility] [id number] [address] [place] [id number] Sep, IMMUNIZATIONS No Known Immunizations SOCIAL HISTORY Never Assessed REASON FOR VISIT [facility] PLAN OF CARE VITAL SIGNS MEDICATIONS Medication Instructions Dosage Frequency Start Date End Date Duration S tatus Amoxicillin 500 mg 2 capsule by Oral route 2 times per day for 10 day(s) May, Active Albuterol Sulfate 90 mcg/actuation 2 puf fs by Inhalation route every 4-6 hours as needed PRN cough or wheezing May, Active Zithromax Z-Danis 250 mg 2 tablet by Oral route 1 time per day for 1 days then take 1 tab daily on days 2-5 Nov, Active Hydrochlorothiazide 25 mg 1 tablet by Oral route 1 bran e per day Oct, Active Promethazine-Codeine 6.25-10 mg/5 mL 5 m L by Oral route every 8 hoursPRNsevere cough Nov, Active RESULTS No Results PROCEDURES No [...]
--- OUTSIDE RECORDS SUMMARY | 2020-03-17 14:48 | XMS REPORT ---
Author Author Fatimah Stack Doctor Organization [facility] Address Unknown Phone Unavailable Care Team Providers Care Reactor Operator Name Role Phone Migration, Doctor Unavailable Unavailable PROBLEMS Type Condition ICD9-CM Code [id number] Code Onset Dates Condition S tatus SNOMED Code Problem Anxiety F41.9 Active 31183309 Problem Essential (primary) hypertension I10 Active 74010795 Problem Diverticulitis of large inte simon without perforation or abscess without bleeding K57.32 Active 0770667 Problem Elevated LDL cholesterol level E78.0 Active 197063776 Problem Migraine with aura and without status migrainosu s, not intractable G43.109 Active 4160115 Problem Insomnia, unspecified type G47.00 Act nathan 721314224 Problem RUQ abdominal pain R10.11 Active 3 15668683 Problem Biliary dyskinesia K82.8 Active 1 19805058 Problem Other chronic pain G89.29 Active 8 8140696 Problem Tobacco abuse Z72.0 Active 824979 000 Problem Morbid obesity E66.01 Active 47606 6002 Problem Diverticulitis K57.92 Active 29682 6006 Problem Lumbago with sciatica, right side M54.41 Active 768053073 Problem Exacerbation of asthma, unsp ecified asthma severity, unspecified whether persistent J45.901 Active 630455914 Problem Diverticulitis of large inte simon, unspecified bleeding status, unspecified complication status K57.32 Active 3309157 Problem CAP (community acquired pneumonia) J18.9 Active 622088222 Problem Sleep apnea, unspecified type G47.30 Active 16502042 Problem BMI 45.0-49.9, adult Z68.42 Active 640657356 Problem Obstructive sleep apnea syndrome G47.33 Active 89952959 Problem Dysthymia F34.1 Active 05432681 ALLERGIES No Information ENCOUNTERS Encounter Location Date Diagnosis [facility] [address] [id number] [place] [id number] Feb, [facility] [address] [id number] [place] [id number] Feb, Exacerbation of asthma, unspecified asth ma severity, unspecified whether persistent J45.901 ; Thrush B37.0 and Morbid obesity E66.01 [facility] [address] [id number] [place] [id number] Feb, Morbid obesity E66.01 ; Essential (prima ry) hypertension I10 ; Lumbago with sciatica, right side M54.41 and Dysthymia F34.1 [facility] [address] [id number] [place] [id number] Dec, BMI 45.0-49.9, adult Z68.42 ; Phantom pa in G54.6 ; Anxiety F41.9 and Dysthymia F34.1 [facility] [address] [id number] [place] [id number] Nov, BMI 45.0-49.9, adult Z68.42 ; 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, 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 ; Dysthymia F34.1 ; Anxiety F41.9 and Essential (primary) hypertension I10 [facility] [address] [id number] [place] [id number] Oct, Essential (primary) hypertension I10 [facility] [address] [id number] [place] [address] [id number] Oct, Dental examination Z01.20 [facility] [address] [id number] [place] [id number] Sep, [facility] [address] [id number] [address] [place] [address] [id number] Sep, Dental examination Z01.20 an d Caries K02.9 [facility] [address] [id number] [place] [id number] 06 Sep, 2018 Dysthymia F34.1 and Diverticulitis K57.9 2 [facility] [address] [id number] [place] [id number] Sep, [place] [address] [id number] [id number] Aug, Essential (primary) hypertension I10 ; D yspnea on exertion R06.09 ; Obstructive sleep apnea syndrome G47.33 and Tobacco abuse Z72.[address] [id number] [place] [id number] Aug, BMI 45.0-49.9, adult Z68.42 and Divertic ulitis K57.92 [place] [id number] [place] [address], [place] [id number] Jul, Lumbago with sciatica, right side M54.41 and Dysthymia F34.[address] [place] [address], [place] [id number] Jul, BMI 45.0-49.9, adult Z68.42 ; Dysthymia F34.1 ; Lumbago with sciatica, right side M54.41 and Essential (primary) hypertension I10 [address] [place] [address], [place] [id number] Jun, BMI 45.0-49.9, adult Z68.42 ; Essential (primary) hypertension I10 ; Dysthymia F34.1 ; Lumbago with sciatica, right side M54.41 and Mild intermittent asthma with acute exacerbation J45.[address] [id number] [place] [id number] Jun, [facility] [address] [facility] [id number] [address] [place] [address] Jun, Chest congestion R09.89 ; Co ugh R05 and BMI 45.0-49.9, adult Z68.42 [facility] [address] [id number] [id number] Jun, Dental examination Z01.[address] [id number] [place] [id number] May, Essential (primary) hypertension I10 ; L umbago with sciatica, right side M54.41 ; Anxiety F41.9 and BMI 45.0-49.9, adult Z68.42 [facility] [address] [id number] [place] [id number] May, Essential (primary) hypertension I10 ; O ther chest pain R07.89 ; Dyspnea on exertion R06.09 ; Tobacco abuse Z72.0 ; Sleep apnea, unspecified type G47.30 ; BMI 45.0-49.9, adult Z68.42 and Morbid obesity E66.01 [facility] [address] [facility] [id number] [place] [address] May, BMI 45.0-49.9, adult Z68.42 [facility] [place] [address] [id number] [place] [id number] May, BMI 45.0-49.9, adult Z68.42 ; Lumbago wi th sciatica, right side M54.41 ; Anxiety F41.9 and Essential (primary) hypertension I10 [facility] [address] [facility] [id number] [place] [address] Apr, [facility] [place] [address] [id number] [place] [id number] Apr, Anxiety F41.9 [facility] [place] [address] [id number] [place] [id number] Apr, Anxiety F41.9 [facility] [place] [address] [id number] [place] [id number] Apr, [facility] [address] [facility] [address] [id number] [place] [id number] Apr, Dental examination Z01.20 [facility] [place] [address] [id number] [place] [id number] Apr, Anxiety F41.9 [facility] [place] [address] [id number] [place] [id number] Apr, Anxiety F41.9 and Lumbago with sciatica, right side M54.41 [facility] [place] [address] [id number] [place] [id number] March, Anxiety F41.9 [facility] [place] [address] [id number] [place] [id number] March, Diverticulitis of large intestine, unspe cified bleeding status, unspecified complication status K57.32 ; Anxiety F41.9 and Essential (primary) hypertension I10 [facility] [address] [facility] [id number] [place] [id number] March, RUQ abdominal pain R10.11 [facility] [address] [facility] [id number] [address] [address] Feb, Wheezing on auscultation R06 .2 [facility] [address] [facility] [id number] [place] [id number] Feb, Anxiety F41.9 [facility] [address] [facility] [id number] [place] [id number] Feb, [facility] [address] [facility] [id number] [place] [id number] Jan, BMI 50.0-59.9, adult Z68.43 ; Anxiety F4 1.9 ; Chest pain, unspecified type R07.9 and Essential (primary) hypertension I10 [place] [address] [facility] [address] [id number][place] [id number] Jan, BMI 45.0-49.9, adult Z68.42 ; Morbid obe sity E66.01 ; Chest pain, non- cardiac R07.89 ; Anxiety F41.9 ; Essential (primary) hypertension I10 and Tobacco abuse Z72.0 [place] [address] [facility] [address] [id number][place] [id number] Jan, Essential (primary) hypertension I10 [facility] [address] [facility] [id number] [place] [id number] Dec, Essential (primary) hypertension I10 ; M igraine with aura and without status migrainosus, not intractable G43.109 ; Viral syndrome B34.9 and Lumbago with sciatica, right side M54.41 [facility] [address] [facility] [id number] [place] [id number] Nov, BMI 45.0-49.9, adult Z68.42 ; Migraine w ith aura and without status migrainosus, not intractable G43.109 and Essential (primary) hypertension I10 [facility] [place] [address] [id number] [place] [id number] Nov, Essential (primary) hypertension I10 [facility] [place] [address] [id number] [place] [id number] Nov, BMI 45.0-49.9, adult Z68.42 ; Essential (primary) hypertension I10 ; Anxiety F41.9 ; Lumbago with sciatica, right side M54.41 and Other chronic pain G89.29 [facility] [place] [address] [id number] [place] [id number] Nov, [facility] [place] [address] [id number] [place] [id number] Aug, RUQ abdominal pain R10.11 [facility] [place] [address] [id number] [place] [id number] Aug, Essential (primary) hypertension I10 and Anxiety F41.9 [facility] [place] [address] [id number] [place] [id number] May, Essential (primary) hypertension I10 and Anxiety F41.9 [facility] [place] [address] [id number] [place] [id number] March, Diverticulitis of large intestine, unspe cified bleeding status, unspecified complication status K57.32 [facility] [address] [facility] [id number] [place] [address] March, [facility] [place] [address] [facility] [id number] [place] [id number] March, [facility] [place] [address] [id number] [place] [id number] March, Chest wall pain R07.89 and Dysuria R30.0 [facility] [place] [address] [id number] [place] [id number] March, Anxiety F41.9 [facility] [place] [address] [id number] [place] [id number] Feb, Biliary dyskinesia K82.8 [facility] [place] [address] [id number] [place] [id number] Feb, Biliary dyskinesia K82.8 [facility] [place] [address] [id number] [place] [id number] Jan, Essential (primary) hypertension I10 and RUQ abdominal pain R10.11 [facility] [place] [address] [id number] [place] [id number] Jan, Essential (primary) hypertension I10 and Anxiety F41.9 [facility] [place] [address] [id number] [place] [id number] Dec, Essential (primary) hypertension I10 [facility] [place] [address] [id number] [place] [id number] Nov, Migraine with aura and without status mi grainosus, not intractable G43.109 and Essential (primary) hypertension I10 [facility] [place] [address] [id number] [place] [id number] Nov, Anxiety F41.9 ; Migraine with aura and w ithout status migrainosus, not intractable G43.109 and Insomnia, unspecified type G47.00 [facility] [place] [address] [id number] [place] [id number] Oct, Migraine with aura and without status mi grainosus, not intractable G43.109 [facility] [place] [address] [id number] [place] [id number] Oct, Anxiety F41.9 and Essential (primary) hy pertension I10 [facility] [address] [facility] [id number] [address] [place] [address] Oct, [facility] [address] [facility] [id number] [address] [place] [address] Sep, [facility] [place] [address] [id number] [place] [id number] Sep, Diverticulitis of large intestine withou t perforation or abscess without bleeding K57.32 and Anxiety F41.9 [facility] [place] [address] [facility] [id number] [place] [id number] Aug, Diverticulitis of large intestine withou t perforation or abscess without bleeding K57.32 [facility] [address] [facility] [id number] [place] [address] Aug, [facility] [address] [id number] [place] [id number] Aug, [facility] [address] [facility] [id number] [place] [address] Aug, [facility] [place] [address] [id number] [place] [id number] Aug, [facility] [address] [id number] [place] [id number] Jul, Ingrown left big toenail L60.0 [facility] [place] [address] [id number] [place] [id number] Jul, [facility] [place] [address] [id number] [place] [id number] Jul, Ingrowing toenail of right foot L60.0 [facility] [place] [address] [id number] [place] [id number] Apr, [facility] [place] [address] [id number] [place] [id number] Apr, RUQ abdominal pain R10.11 ; Fatty liver disease, nonalcoholic K76.0 ; Hx of hyperglycemia Z86.39 ; Elevated alanine aminotransferase (ALT) level R74.0 ; Elevated LDL cholesterol level E78.0 and Prediabetes R73.09 [facility] [address] [id number] [place] [id number] Apr, RUQ abdominal pain R10.11 ; Mild persist ent asthma without complication J45.30 ; Anxiety F41.9 and Essential (primary) hypertension I10 [facility] [address] [id number] [place] [id number] March, Wheezing R06.2 and Cough R05 [facility] [address] [id number] [place] [id number] March, [facility] [address] [facility] [id number] [place] [id number] March, [facility] [address] [facility] [id number] [place] [id number] March, Acute severe exacerbation of asthma J45. 51 ; Cough R05 and Cough headache G44.83 [facility] [address] [facility] [id number] [place] [id number] Feb, Mild intermittent asthma with acute exac erbation J45.21 and Transient insomnia F51.02 [facility] [address] [facility] [id number] [place] [id number] Feb, Pigmented skin lesion of uncertain natur e L81.9 [facility] [address] [facility] [id number] [place] [id number] Feb, Anxiety F41.9 and Essential (primary) hy pertension I10 [facility] [address] [facility] [id number] [place] [id number] Jan, [facility] [address] [facility] [id number] [place] [id number] Jan, Routine gynecological examination Z01.41 9 and Encounter for Papanicolaou smear for cervical cancer screening Z12.4 [facility] [address] [place] [id number] [place] [id number] 07 Jan, 2016 Essential (primary) hypertension I10 and Anxiety F41.9 [facility] [address] [facility] [id number] [place] [id number] Dec, Essential (primary) hypertension I10 and Anxiety F41.9 [facility] [address] [facility] [id number] [place] [id number] Nov, Essential (primary) hypertension I10 [facility] [address] [id number][place] [id number] Aug, [facility] [address] [facility] [id number] [place] [id number] Aug, CAP (community acquired pneumonia) J18.9 [facility] [address] [facility] [id number] [place] [id number] Aug, CAP (community acquired pneumonia) J18.[address] [facility] [address] [id number][place] [id number] Aug, CAP (community acquired pneumonia) J18.9 [facility] [place] [address] [id number] [place] [id number] Aug, CAP (community acquired pneumonia) J18.9 and Essential (primary) hypertension I10 [facility] [place] [address] [id number] [place] [id number] Aug, CAP (community acquired pneumonia) J18.9 [facility] [address] [id number] [address] [place] [address] Apr, [facility] [address] [id number] [address] [place] [address] Feb, [facility] [address] [facility] [id number] [address] [place] [address] Feb, [facility] [place] [address] [facility] [id number] [place] [id number] Jan, [facility] [address] [facility] [id number] [address] [place] [address] Jan, [facility] [address] [facility] [id number] [address] [place] [address] Nov, [facility] [place] [address] [facility] [id number] [place] [id number] Nov, [facility] [address] [facility] [id number] [address] [place] [address] Nov, [facility] [place] [address] [id number] [place] [id number] Oct, [facility] [address] [id number] [address] [place] [address] Oct, [facility] [place] [address] [id number] [place] [id number] Sep, [facility] [address] [facility] [id number] [address] [place] [address] Sep, [facility] [place] [address] [id number] [place] [id number] Jun, [facility] [address] [id number] [facility] [place] [address] Jun, [facility] [place] [address] [id number] [place] [id number] Jun, [facility] [address] [id number] [address] [place] [address] Jun, [facility] [place] [address] [id number] [place] [id number] May, [facility] [address] [id number] [address] [place] [address], [place] [address] May, [facility] [place] [address] [id number] [place] [id number] Dec, [facility] [address] [id number] [address] [place] [address], [place] [address] Dec, [facility] [place] [address] [id number] [place] [id number] Feb, [facility] [place] [address] [id number] [place] [id number] Feb, [facility] [place] [address] [id number] [place] [id number] Feb, [facility] [address] [id number] [address] [place] [address], [place] [address] 16 Feb, 2013 [facility] [place] [address] [id number] [place] [id number] 15 Feb, 2013 [facility] [place] [address] [id number] [place] [id number] 15 Feb, 2013 [facility] [address] [id number] [address] [place] [address], [place] [address] 14 Feb, 2013 [facility] [address] [id number] [address] [place] [address], [place] [address] 13 Feb, 2013 [facility] [address] [id number] [address] [place] [address], [place] [address] Feb, [facility] [address] [id number] [place] [id number] Feb, [facility] [place] [address] [id number] [place] [id number] Feb, [facility] [address] [id number] [place] [id number] Jan, [facility] [address] [id number] [place] [id number] Nov, [facility] [address] [id number] [place] [id number] Nov, [facility] [address] [facility] [id number] [address] [place] [address] Oct, [facility] [address] [facility] [id number] [address] [place] [address] Apr, [facility] [address] [facility] [id number] [address] [place] [address] Dec, [facility] [address] [facility] [id number] [address] [place] [address] Nov, [facility] [address] [place] [id number] [address] [place] [phone] Oct, [facility] [address] [facility] [id number] [address] [place] [address] Oct, [facility] [address] [place] [id number] [address] [place] [id number] Sep, [facility] [address] [facility] [id number] [address] [place] [address] Sep, [facility] [address] [facility] [id number] [address] [place] [address] Sep, IMMUNIZATIONS No Known Immunizations SOCIAL HISTORY Never Assessed REASON FOR VISIT EMR-[facility] PLAN OF CARE VITAL SIGNS MEDICATIONS Unknown [...] a fter being crushed 09/2018 Hospitalization History Diverticulitis-[facility] 08/2016 Hospitalization History Generalized anxiety disorder-[facility] 2015 Hospitalization History Diverticulitis-[facility]. Left AMA 04/06/17 Hospitalization History ER visit for migraine 08/2017 Hospitalization History ER visit for chest pain 01/2018
--- OUTSIDE RECORDS SUMMARY | 2020-03-17 14:48 | XMS REPORT ---
Author Author Fatimah Stack Doctor Organization [facility] Address Unknown Phone Unavailable Care Team Providers Care Instructional Design Consultant Name Role Phone Migration, Doctor Unavailable Unavailable PROBLEMS Type Condition ICD9-CM Code BJS43-HF Code Onset Dates Condition S tatus SNOMED Code Problem Anxiety F41.9 Active 99120526 Problem Essential (primary) hypertension I10 Active 89782701 Problem Diverticulitis of large inte simon without perforation or abscess without bleeding K57.32 Active 9269113 Problem Elevated LDL cholesterol level E78.0 Active 159600686 Problem Migraine with aura and without status migrainosu s, not intractable G43.109 Active 5192716 Problem Insomnia, unspecified type G47.00 Act nathan 744584211 Problem RUQ abdominal pain R10.11 Active 3 99312951 Problem Biliary dyskinesia K82.8 Active 1 25219436 Problem Other chronic pain G89.29 Active 8 4767437 Problem Tobacco abuse Z72.0 Active 583679 000 Problem Morbid obesity E66.01 Active 70042 6002 Problem Diverticulitis K57.92 Active 36556 6006 Problem Lumbago with sciatica, right side M54.41 Active 453249578 Problem Exacerbation of asthma, unsp ecified asthma severity, unspecified whether persistent J45.901 Active 857248994 Problem Diverticulitis of large inte simon, unspecified bleeding status, unspecified complication status K57.32 Active 9384313 Problem CAP (community acquired pneumonia) J18.9 Active 773015566 Problem Sleep apnea, unspecified type G47.30 Active 51886962 Problem BMI 45.0-49.9, adult Z68.42 Active 392231232 Problem Obstructive sleep apnea syndrome G47.33 Active 48125829 Problem Dysthymia F34.1 Active 63512436 ALLERGIES No Information ENCOUNTERS Encounter Location Date Diagnosis [facility] [address] [id number] [place] [id number] Feb, Dysthymia F34.1 ; Lumbago with sciatica, right side M54.41 and Morbid obesity E66.01 [facility] [address] [id number] [place] [id number] Feb, Exacerbation of asthma, unspecified asth ma severity, unspecified whether persistent J45.901 ; Thrush B37.0 and Morbid obesity E66.01 [facility] [address] [id number] [place] [id number] Feb, Morbid obesity E66.01 ; Essential (prima ry) hypertension I10 ; Lumbago with sciatica, right side M54.41 and Dysthymia F34.1 [facility] [address] [facility] [id number] [place] [id number] Dec, BMI 45.0-49.9, adult Z68.42 ; Phantom pa in G54.6 ; Anxiety F41.9 and Dysthymia F34.1 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 [address] [id number] [place] [id number] Oct, Essential (primary) hypertension I10 [facility] [id number] [place] [address] [id number] Oct, Dental examination Z01.20 [facility] [address] [id number] [place] [id number] Sep, [facility] [address] [id number] [place] [id number] Sep, Dental examination Z01.20 an d Caries K02.9 [facility] [address] [id number] [place] [id number] 06 Sep, 2018 Dysthymia F34.1 and Diverticulitis K57.9 2 [facility] [address] [id number] [place] [id number] Sep, [facility] [place] [address] [facility] [id number] [place] [id number] Aug, Essential (primary) hypertension I10 ; D yspnea on exertion R06.09 ; Obstructive sleep apnea syndrome G47.33 and Tobacco abuse Z72.0 [facility] [address] [facility] [id number] [place] [id number] Aug, BMI 45.0-49.9, adult Z68.42 and Divertic ulitis K57.92 [facility] [address] [facility] [id number] [place] [id number] Jul, Lumbago with sciatica, right side M54.41 and Dysthymia F34.1 [facility] [address] [facility] [id number] [place] [id number] Jul, BMI 45.0-49.9, adult Z68.42 ; Dysthymia F34.1 ; Lumbago with sciatica, right side M54.41 and Essential (primary) hypertension I10 [facility] [address] [facility] [id number] [place] [id number] Jun, BMI 45.0-49.9, adult Z68.42 ; Essential (primary) hypertension I10 ; Dysthymia F34.1 ; Lumbago with sciatica, right side M54.41 and Mild intermittent asthma with acute exacerbation J45.21 [facility] [address] [facility] [id number] [place] [id number] Jun, [facility] [address] [facility] [id number] [place] [address] Jun, Chest congestion R09.89 ; Co ugh R05 and BMI 45.0-49.9, adult Z68.42 [address] [facility] [id number] [id number] Jun, Dental examination Z01.20 [facility] [address] [facility] [id number] [place] [id number] May, Essential (primary) hypertension I10 ; L umbago with sciatica, right side M54.41 ; Anxiety F41.9 and BMI 45.0-49.9, adult Z68.42 [facility] [address] [address] [id number] [id number] May, Essential (primary) hypertension I10 ; O ther chest pain R07.89 ; Dyspnea on exertion R06.09 ; Tobacco abuse Z72.0 ; Sleep apnea, unspecified type G47.30 ; BMI 45.0-49.9, adult Z68.42 and Morbid obesity E66.01 [facility] [address] [facility] [id number] [place] [address] 05 May, 2018 BMI 45.0-49.9, adult Z68.42 [facility] [place] [address] [facility] [id number] [place] [id number] May, BMI 45.0-49.9, adult Z68.42 ; Lumbago wi th sciatica, right side M54.41 ; Anxiety F41.9 and Essential (primary) hypertension I10 [facility] [address] [facility] [id number] [place] [address] Apr, [facility] [place] [address] [id number] [place] [id number] Apr, Anxiety F41.9 [facility] [place] [address] [id number] [place] [id number] Apr, Anxiety F41.9 [facility] [place] [address] [id number] [place] [id number] Apr, [facility] [address] [facility] [address] [id number] [id number] Apr, Dental examination Z01.20 [facility] [place] [address] [id number] [place] [id number] Apr, Anxiety F41.9 [facility] [place] [address] [id number] [place] [id number] Apr, Anxiety F41.9 and Lumbago with sciatica, right side M54.41 [facility] [place] [address] [id number] [place] [id number] March, Anxiety F41.9 [facility] [address] [facility] [id number] [place] [id number] March, Diverticulitis of large intestine, unspe cified bleeding status, unspecified complication status K57.32 ; Anxiety F41.9 and Essential (primary) hypertension I10 [facility] [address] [facility] [id number] [place] [id number] March, RUQ abdominal pain R10.11 [facility] [address] [facility] [id number] 100[place] [address] Feb, Wheezing on auscultation R06 .2 [facility] [address] [facility] [id number] [place] [id number] Feb, Anxiety F41.9 [facility] [place] [address] [facility] [id number] [place] [id number] Feb, [facility] [address] [facility] [id number] [place] [id number] Jan, BMI 50.0-59.9, adult Z68.43 ; Anxiety F4 1.9 ; Chest pain, unspecified type R07.9 and Essential (primary) hypertension I10 [address] [id number] [id number] Jan, BMI 45.0-49.9, adult Z68.42 ; Morbid obe sity E66.01 ; Chest pain, non- cardiac R07.89 ; Anxiety F41.9 ; Essential (primary) hypertension I10 and Tobacco abuse Z72.[address] [id number][place] [id number] Jan, Essential (primary) hypertension I10 [facility] [address] [facility] [id number] [place] [id number] Dec, Essential (primary) hypertension I10 ; M igraine with aura and without status migrainosus, not intractable G43.109 ; Viral syndrome B34.9 and Lumbago with sciatica, right side M54.41 [facility] [place] [address] [facility] [id number] [place] [id number] Nov, BMI 45.0-49.9, adult Z68.42 ; Migraine w ith aura and without status migrainosus, not intractable G43.109 and Essential (primary) hypertension I10 [facility] [place] [address] [id number] [place] [id number] Nov, Essential (primary) hypertension I10 [facility] [place] [address] [id number] [place] [id number] Nov, BMI 45.0-49.9, adult Z68.42 ; Essential (primary) hypertension I10 ; Anxiety F41.9 ; Lumbago with sciatica, right side M54.41 and Other chronic pain G89.29 [facility] [place] [address] [id number] [place] [id number] Nov, [facility] [place] [address] [id number] [place] [id number] Aug, RUQ abdominal pain R10.11 [facility] [place] [address] [id number] [place] [id number] Aug, Essential (primary) hypertension I10 and Anxiety F41.9 [facility] [place] [place] [address] [id number] [place] [id number] May, Essential (primary) hypertension I10 and Anxiety F41.9 [facility] [place] [place] [address] [id number] [place] [id number] March, Diverticulitis of large intestine, unspe cified bleeding status, unspecified complication status K57.32 [facility] [address] [facility] [id number] [place] [address] March, [facility] [place] [place] [address] [id number] [place] [id number] March, [facility] [place] [place] [address] [id number] [place] [id number] March, Chest wall pain R07.89 and Dysuria R30.0 [facility] [place] [address] [id number] [place] [id number] March, Anxiety F41.9 [facility] [place] [place] [address] [id number] [place] [id number] Feb, Biliary dyskinesia K82.8 [facility] [place] [address] [id number] [place] [id number] Feb, Biliary dyskinesia K82.8 [facility] [place] [address] [id number] [place] [id number] Jan, Essential (primary) hypertension I10 and RUQ abdominal pain R10.11 [facility] [place] [address] [id number] [place] [id number] Jan, Essential (primary) hypertension I10 and Anxiety F41.9 [facility] [place] [address] [id number] [place] [id number] Dec, Essential (primary) hypertension I10 [facility] [place] [address] [id number] [place] [id number] Nov, Migraine with aura and without status mi grainosus, not intractable G43.109 and Essential (primary) hypertension I10 [facility] [place] [address] [id number] [place] [id number] Nov, Anxiety F41.9 ; Migraine with aura and w ithout status migrainosus, not intractable G43.109 and Insomnia, unspecified type G47.00 [facility] [place] [address] [id number] [place] [id number] Oct, Migraine with aura and without status mi grainosus, not intractable G43.109 [facility] [place] [address] [facility] [id number] [place] [id number] Oct, Anxiety F41.9 and Essential (primary) hy pertension I10 [facility] [address] [facility] [id number] [address] [place] [address] Oct, [facility] [address] [facility] [id number] [address] [place] [address] Sep, [facility] [place] [address] [id number] [place] [id number] Sep, Diverticulitis of large intestine withou t perforation or abscess without bleeding K57.32 and Anxiety F41.9 [facility] [place] [address] [facility] [id number] [place] [id number] Aug, Diverticulitis of large intestine withou t perforation or abscess without bleeding K57.32 [facility] [address] [facility] [id number] [place] [address] Aug, [facility] [address] [facility] [id number] [place] [id number] Aug, [facility] [address] [facility] [id number] [address] [place] [address] Aug, [facility] [address] [id number] [place] [id number] Aug, [facility] [address] [facility] [id number] [place] [id number] Jul, Ingrown left big toenail L60.0 [facility] [id number] [place] [address], [place] [id number] Jul, [facility] [place] [place] [address] [id number] [place] [id number] Jul, Ingrowing toenail of right foot L60.0 [facility] [place] [place] [address] [id number] [place] [id number] Apr, [facility] [place] [place] [address] [id number] [place] [id number] Apr, RUQ abdominal pain R10.11 ; Fatty liver disease, nonalcoholic K76.0 ; Hx of hyperglycemia Z86.39 ; Elevated alanine aminotransferase (ALT) level R74.0 ; Elevated LDL cholesterol level E78.0 and Prediabetes R73.09 [facility] [address] [id number] [place] [id number] Apr, RUQ abdominal pain R10.11 ; Mild persist ent asthma without complication J45.30 ; Anxiety F41.9 and Essential (primary) hypertension I10 [facility] [address] [id number] [place] [id number] March, Wheezing R06.2 and Cough R05 [facility] [id number] [place] [address], [place] [id number] March, [facility] [address] [facility] [id number] [place] [id number] March, [facility] [address] [facility] [id number] [place] [id number] March, Acute severe exacerbation of asthma J45. 51 ; Cough R05 and Cough headache G44.83 [facility] [address] [facility] [id number] [place] [id number] Feb, Mild intermittent asthma with acute exac erbation J45.21 and Transient insomnia F51.02 [facility] [address] [facility] [id number] [place] [id number] Feb, Pigmented skin lesion of uncertain natur e L81.9 [facility] [address] [facility] [id number] [place] [id number] Feb, Anxiety F41.9 and Essential (primary) hy pertension I10 [facility] [address] [facility] [id number] [place] [id number] 31 Jan, 2016 [facility] [address] [facility] [id number] [place] [id number] 23 Jan, 2016 Routine gynecological examination Z01.41 9 and Encounter for Papanicolaou smear for cervical cancer screening Z12.4 [facility] [address] [facility] [id number] [place] [id number] 07 Jan, 2016 Essential (primary) hypertension I10 and Anxiety F41.9 [facility] [address] [facility] [id number] [place] [id number] 10 Dec, 2015 Essential (primary) hypertension I10 and Anxiety F41.9 [facility] [address] [facility] [id number] [place] [id number] Nov, Essential (primary) hypertension I10 [facility] [address] [id number] [place] [id number] Aug, [facility] [address] [facility] [id number] [place] [id number] Aug, CAP (community acquired pneumonia) J18.9 [facility] [address] [id number] [place] [id number] Aug, CAP (community acquired pneumonia) J18.[address] [facility] [address] [id number] [id number] Aug, CAP (community acquired pneumonia) J18.9 [facility] [place] [address] [id number] [place] [id number] Aug, CAP (community acquired pneumonia) J18.9 and Essential (primary) hypertension I10 [facility] [place] [address] [id number] [place] [id number] Aug, CAP (community acquired pneumonia) J18.9 [facility] [address] [id number] [address] [place] [address] Apr, [facility] [address] [facility] [id number] [address] [place] [address] Feb, [facility] [address] [facility] [id number] [address] [place] [address] Feb, [facility] [place] [address] [id number] [place] [id number] Jan, [facility] [address] [facility] [id number] [address] [place] [address] Jan, [facility] [address] [facility] [id number] [address] [place] [address] Nov, [facility] [place] [address] [id number] [place] [id number] Nov, [facility] [address] [id number] [address] [place] [address] Nov, [facility] [place] [address] [id number] [place] [id number] Oct, [facility] [address] [id number] [address] [place] [address] Oct, [facility] [place] [address] [id number] [place] [id number] Sep, [facility] [address] [id number] [address] [place] [address] Sep, [facility] [place] [address] [id number] [place] [id number] Jun, [facility] [address] [facility] [id number] [address] [place] [phone] Jun, [facility] [place] [address] [id number] [place] [id number] Jun, [facility] [address] [facility] [id number] [address] [place] [address] Jun, [facility] [place] [address] [id number] [place] [id number] May, [facility] [address] [facility] [id number] [address] [place] [address] May, [facility] [place] [address] [id number] [place] [id number] Dec, [facility] [address] [facility] [id number] [address] [place] [address] Dec, [facility] [place] [address] [id number] [place] [id number] Feb, [facility] [place] [address] [id number] [place] [id number] Feb, [facility] [place] [address] [id number] [place] [id number] Feb, [facility] [address] [facility] [id number] [address] [place] [address], [place] [address] 16 Feb, 2013 [facility] [place] [address] [id number] [place] [id number] 15 Feb, 2013 [facility] [place] [address] [id number] [place] [id number] Feb, [facility] [address] [facility] [id number] [address] [place] [id number] 14 Feb, 2013 [facility] [address] [facility] [id number] [address] [place] [address] Feb, [facility] [address] [id number] [address] [place] [address] Feb, [facility] [address] [id number] [place] [id number] Feb, [facility] [address] [id number] [place] [id number] Feb, [facility] [address] [id number] [place] [id number] Jan, [facility] [place] [address] [id number] [place] [id number] Nov, [facility] [address] [id number] [place] [id number] Nov, [facility] [address] [facility] [id number] [address] [place] [phone] Oct, [facility] [address] [facility] [id number] [address] [place] [id number] Apr, [facility] [address] [facility] [id number] [address] [place] [phone] Dec, [facility] [address] [facility] [id number] [address] [place] [phone] Nov, [facility] [address] [facility] [id number] [address] [place] [id number] Oct, [facility] [address] [facility] [id number] [address] [place] [phone] Oct, [facility] [address] [facility] [id number] [address] [place] [address] Sep, [facility] [address] [facility] [id number] [address] [place] [phone] Sep, [facility] [address] [facility] [id number] [address] [place] [phone] Sep, IMMUNIZATIONS No Known Immunizations SOCIAL HISTORY Never Assessed REASON FOR VISIT [facility] [place] CARE VITAL SIGNS MEDICATIONS No [...]
--- OUTSIDE RECORDS SUMMARY | 2020-03-17 14:49 | XMS REPORT ---
Author Author Fatimah FRANKS [facility] Address [address] [place] [address] Care Team Providers Care Link Trainer Operator Name Role Phone NUZHAT FRANKS Unavailable PROBLEMS Type Condition ICD9-CM Code NQD70-EZ Code Onset Dates Condition S tatus SNOMED Code Problem Lumbago with sciatica, right side M54.41 Active 301550852 Problem Tobacco abuse Z72.0 Active 001498 000 Problem Other chronic pain G89.29 Active 8 1144239 Problem Diverticulitis K57.92 Active 69200 6006 Problem Dysthymia F34.1 Active 74711828 Problem Sleep apnea, unspecified type G47.30 Active 05286782 Problem Morbid obesity E66.01 Active 88630 6002 Problem Obstructive sleep apnea syndrome G47.33 Active 40248392 Problem BMI 45.0-49.9, adult Z68.42 Active 814574374 Problem Anxiety F41.9 Active 18035980 Problem Elevated LDL cholesterol level E78.0 Active 672594520 Problem CAP (community acquired pneumonia) J18.9 Active 673608353 Problem Essential (primary) hypertension I10 Active 82789918 Problem Migraine with aura and without status migrainosu s, not intractable G43.109 Active 1193208 Problem Biliary dyskinesia K82.8 Active 1 12003698 Problem Diverticulitis of large inte simon without perforation or abscess without bleeding K57.32 Active 5282324 Problem RUQ abdominal pain R10.11 Active 3 78164067 Problem Insomnia, unspecified type G47.00 Act nathan 878563954 Problem Diverticulitis of large inte simon, unspecified bleeding status, unspecified complication status K57.32 Active 4008844 ALLERGIES No Information ENCOUNTERS Encounter Location Date Diagnosis [address] [address] [id number] [place] [id number] Feb, [address] [id number] [place] [id number] Nov, [facility] [place] [address] [id number] [place] [id number] Oct, Essential (primary) hypertension I10 [facility] [address] [id number] [place] [id number] Oct[facility] [place] [address] [id number] [place] [id number] Sep, [facility] [address] [id number] [place] [id number] Sep, Dental examination Z01.20 an d Caries K02.9 [facility] [place] [address] [id number] [place] [id number] Sep, Dysthymia F34.1 and Diverticulitis K57.9 2 [facility] [place] [address] [id number] [place] [id number] Sep, [facility] [address] [id number] [place] [id number] Aug, Essential (primary) hypertension I10 ; D yspnea on exertion R06.09 ; Obstructive sleep apnea syndrome G47.33 and Tobacco abuse Z72.0 [facility] [place] [address] [id number] [place] [id number] Aug, BMI 45.0-49.9, adult Z68.42 and Divertic ulitis K57.92 [facility] [place] [address] [id number] [place] [id number] Jul, Lumbago with sciatica, right side M54.41 and Dysthymia F34.1 [facility] [place] [address] [id number] [place] [id number] Jul, BMI 45.0-49.9, adult Z68.42 ; Dysthymia F34.1 ; Lumbago with sciatica, right side M54.41 and Essential (primary) hypertension I10 [facility] [place] [address] [id number] [place] [id number] Jun, BMI 45.0-49.9, adult Z68.42 ; Essential (primary) hypertension I10 ; Dysthymia F34.1 ; Lumbago with sciatica, right side M54.41 and Mild intermittent asthma with acute exacerbation J45.21 [facility] [address] [id number] [place] [id number] Jun, [facility] [address] [facility] [id number] [address] [place] [address] Jun, Chest congestion R09.89 ; Co ugh R05 and BMI 45.0-49.9, adult Z68.42 [place] [address] [facility] [address] [id number] [place] [id number] Jun, Dental examination Z01.20 [facility] [address] [facility] [id number] [place] [id number] May, Essential (primary) hypertension I10 ; L umbago with sciatica, right side M54.41 ; Anxiety F41.9 and BMI 45.0-49.9, adult Z68.42 [place] [address] [facility] [address] [id number] [place] [id number] May, Essential (primary) hypertension I10 ; O ther chest pain R07.89 ; Dyspnea on exertion R06.09 ; Tobacco abuse Z72.0 ; Sleep apnea, unspecified type G47.30 ; BMI 45.0-49.9, adult Z68.42 and Morbid obesity E66.01 [facility] [address] [facility] [id number] [address] [place] [address] May, BMI 45.0-49.9, adult Z68.42 [facility] [address] [facility] [id number] [place] [id number] May, BMI 45.0-49.9, adult Z68.42 ; Lumbago wi th sciatica, right side M54.41 ; Anxiety F41.9 and Essential (primary) hypertension I10 [facility] [address] [facility] [id number] [address] [place] [address] Apr, [facility] [address] [facility] [id number] [place] [id number] Apr, Anxiety F41.9 [facility] [place] [address] [id number] [place] [id number] Apr, Anxiety F41.9 [facility] [place] [address] [id number] [place] [id number] Apr, [facility] [place] [address] [id number] [place] [id number] Apr, Dental examination Z01.20 [facility] [place] [address] [id number] [place] [id number] Apr, Anxiety F41.9 [facility] [place] [address] [id number] [place] [id number] Apr, Anxiety F41.9 and Lumbago with sciatica, right side M54.41 [facility] [place] [address] [id number] [place] [id number] March, Anxiety F41.9 [facility] [place] [address] [id number] [place] [id number] March, Diverticulitis of large intestine, unspe cified bleeding status, unspecified complication status K57.32 ; Anxiety F41.9 and Essential (primary) hypertension I10 [facility] [place] [address] [id number] [place] [id number] March, RUQ abdominal pain R10.11 [facility] [address] [facility] [id number] 100[place] [address] Feb, Wheezing on auscultation R06 .2 [facility] [place] [address] [id number] [place] [id number] Feb, Anxiety F41.9 [facility] [place] [address] [id number] [place] [id number] Feb, [facility] [place] [address] [id number] [place] [id number] Jan, BMI 50.0-59.9, adult Z68.43 ; Anxiety F4 1.9 ; Chest pain, unspecified type R07.9 and Essential (primary) hypertension I[address] [facility] [address] [address] [id number] [place] [id number] Jan, BMI 45.0-49.9, adult Z68.42 ; Morbid obe sity E66.01 ; Chest pain, non- cardiac R07.89 ; Anxiety F41.9 ; Essential (primary) hypertension I10 and Tobacco abuse Z72.0 [facility] [address] [address] [id number] [place] [id number] Jan, Essential (primary) hypertension I10 [facility] [place] [address] [id number] [place] [id number] Dec, Essential (primary) hypertension I10 ; M igraine with aura and without status migrainosus, not intractable G43.109 ; Viral syndrome B34.9 and Lumbago with sciatica, right side M54.41 [facility] [place] [address] [id number] [place] [id number] Nov, BMI 45.0-49.9, adult Z68.42 ; Migraine w ith aura and without status migrainosus, not intractable G43.109 and Essential (primary) hypertension I10 [facility] [place] [address] [id number] [place] [id number] Nov, Essential (primary) hypertension I10 [facility] [place] [address] [id number] [place] [id number] Nov, BMI 45.0-49.9, adult Z68.42 ; Essential (primary) hypertension I10 ; Anxiety F41.9 ; Lumbago with sciatica, right side M54.41 and Other chronic pain G89.29 [facility] [place] [address] [id number] [place] [id number] Nov, [facility] [place] [address] [id number] [place] [id number] Aug, RUQ abdominal pain R10.11 [facility] [place] [address] [id number] [place] [id number] Aug, Essential (primary) hypertension I10 and Anxiety F41.9 [facility] [place] [address] [id number] [place] [id number] May, Essential (primary) hypertension I10 and Anxiety F41.9 [facility] [place] [address] [facility] [id number] [place] [id number] March, Diverticulitis of large intestine, unspe cified bleeding status, unspecified complication status K57.32 [facility] [address] [facility] [id number] [address] [address] March, [facility] [place] [address] [id number] [place] [id number] March, [facility] [place] [address] [id number] [place] [id number] March, Chest wall pain R07.89 and Dysuria R30.0 [facility] [place] [address] [id number] [place] [id number] March, Anxiety F41.9 [facility] [place] [address] [id number] [place] [id number] Feb, Biliary dyskinesia K82.8 [facility] [place] [address] [id number] [place] [id number] Feb, Biliary dyskinesia K82.8 [facility] [place] [address] [id number] [place] [id number] Jan, Essential (primary) hypertension I10 and RUQ abdominal pain R10.11 [facility] [place] [address] [id number] [place] [id number] Jan, Essential (primary) hypertension I10 and Anxiety F41.9 [facility] [place] [address] [id number] [place] [id number] Dec, Essential (primary) hypertension I10 [facility] [place] [address] [id number] [place] [id number] Nov, Migraine with aura and without status mi grainosus, not intractable G43.109 and Essential (primary) hypertension I10 [facility] [place] [address] [id number] [place] [id number] Nov, Anxiety F41.9 ; Migraine with aura and w ithout status migrainosus, not intractable G43.109 and Insomnia, unspecified type G47.00 [facility] [address] [facility] [id number] [place] [id number] Oct, Migraine with aura and without status mi grainosus, not intractable G43.109 [facility] [place] [address] [facility] [id number] [place] [id number] Oct, Anxiety F41.9 and Essential (primary) hy pertension I10 [facility] [id number] [place] [address] Oct, [facility] [address] [address] Sep, [facility] [id number] [place] [address], [place] [id number] Sep, Diverticulitis of large intestine withou t perforation or abscess without bleeding K57.32 and Anxiety F41.9 [facility] [id number] [place] [address], [place] [id number] Aug, Diverticulitis of large intestine withou t perforation or abscess without bleeding K57.32 [facility] [address] [address] Aug, [facility] [id number] [place] [address], [place] [id number] Aug, [facility] [address] [address] Aug, [facility] [id number] [place] [address], [place] [id number] Aug, [facility] [address] [id number] [place] [id number] Jul, Ingrown left big toenail L60.0 [facility] [address] [id number] [place] [id number] Jul, [facility] [address] [id number] [place] [id number] Jul, Ingrowing toenail of right foot L60.0 [facility] [address] [facility] [id number] [place] [id number] Apr, [facility] [address] [facility] [id number] [place] [id number] Apr, RUQ abdominal pain R10.11 ; Fatty liver disease, nonalcoholic K76.0 ; Hx of hyperglycemia Z86.39 ; Elevated alanine aminotransferase (ALT) level R74.0 ; Elevated LDL cholesterol level E78.0 and Prediabetes R73.09 [facility] [address] [id number] [place] [id number] Apr, RUQ abdominal pain R10.11 ; Mild persist ent asthma without complication J45.30 ; Anxiety F41.9 and Essential (primary) hypertension I10 [facility] [address] [facility] [id number] [place] [id number] March, Wheezing R06.2 and Cough R05 [facility] [address] [facility] [id number] [place] [id number] March, [facility] [address] [id number] [place] [id number] March, [facility] [address] [id number] [place] [id number] March, Acute severe exacerbation of asthma J45. 51 ; Cough R05 and Cough headache G44.83 [facility] [address] [facility] [id number] [place] [id number] Feb, Mild intermittent asthma with acute exac erbation J45.21 and Transient insomnia F51.02 [facility] [address] [id number] [place] [id number] Feb, Pigmented skin lesion of uncertain natur e L81.9 [facility] [address] [facility] [id number] [place] [id number] Feb, Anxiety F41.9 and Essential (primary) hy pertension I10 [facility] [address] [id number] [place] [id number] Jan, [facility] [address] [id number] [place] [id number] Jan, Routine gynecological examination Z01.41 9 and Encounter for Papanicolaou smear for cervical cancer screening Z12.4 [facility] [address] [facility] [id number] [place] [id number] Jan, Essential (primary) hypertension I10 and Anxiety F41.9 [facility] [place] [address] [facility] [id number] [place] [id number] 10 Dec, 2015 Essential (primary) hypertension I10 and Anxiety F41.9 [facility] [address] [facility] [id number] [place] [id number] Nov, Essential (primary) hypertension I10 [facility] [address] [id number] [place] [id number] Aug, [facility] [address] [facility] [id number] [place] [id number] Aug, CAP (community acquired pneumonia) J18.9 [facility] [address] [facility] [id number] [place] [id number] Aug, CAP (community acquired pneumonia) J18.9 [facility] [address] [id number] [place] [id number] Aug, CAP (community acquired pneumonia) J18.9 [facility] [address] [facility] [id number] [place] [id number] Aug, CAP (community acquired pneumonia) J18.9 and Essential (primary) hypertension I10 [facility] [address] [facility] [id number] [place] [id number] Aug, CAP (community acquired pneumonia) J18.9 [facility] [address] [facility] [id number] [address] [place] [address] Apr, [facility] [address] [facility] [id number] [address] [place] [address] Feb, [facility] [address] [facility] [id number] [address] [place] [address] Feb, [facility] [address] [facility] [id number] [place] [id number] Jan, [facility] [address] [id number] [facility] [place] [address] Jan, [facility] [address] [id number] [facility] [place] [address] Nov, [facility] [place] [address] [id number] [place] [id number] Nov, [facility] [address] [id number] [facility] [place] [address] Nov, [facility] [place] [address] [id number] [place] [id number] Oct, [facility] [address] [id number] [facility] [place] [address] Oct, [facility] [place] [address] [id number] [place] [id number] Sep, [facility] [address] [id number] [address] [place] [address], [place] [address] Sep, [facility] [place] [address] [id number] [place] [id number] Jun, [facility] [address] [id number] [address] [place] [address], [place] [address] Jun, [facility] [place] [address] [id number] [place] [id number] Jun, [facility] [address] [id number] [address] [place] [address], [place] [address] Jun, [facility] [place] [address] [id number] [place] [id number] May, [facility] [address] [id number] [facility] [place] [address] May, [facility] [place] [address] [id number] [place] [id number] Dec, [facility] [address] [id number] [facility] [place] [address] Dec, [facility] [place] [address] [id number] [place] [id number] Feb, [facility] [place] [address] [id number] [place] [id number] Feb, [facility] [place] [address] [id number] [place] [id number] Feb, [facility] [place] [facility] [address] [id number] [address] [place] [address], [place] [address] 16 Feb, 2013 [facility] [place] [address] [id number] [place] [id number] Feb, [facility] [place] [address] [id number] [place] [id number] Feb, [facility] [place] [facility] [address] [id number] [address] [place] [address], [place] [address] 14 Feb, 2013 [facility] [place] [facility] [address] [facility] [id number] [address] [place] [address], [place] [address] Feb, [facility] [place] [facility] [address] [id number] [address] [place] [address], [place] [address] Feb, [facility] [place] [address] [id number] [place] [id number] Feb, [facility] [place] [address] [id number] [place] [id number] Feb, [facility] [place] [address] [id number] [place] [id number] Jan, [facility] [place] [address] [id number] [place] [id number] Nov, [facility] [place] [address] [id number] [place] [id number] Nov, [facility] [place] [facility] [address] [id number] [address] [place] [address] Oct, [facility] [address] [facility] [id number] [address] [place] [address] Apr, [facility] [address] [facility] [id number] [address] [place] [address] Dec, [facility] [address] [facility] [id number] [address] [place] [address] Nov, [facility] [address] [facility] [id number] [address] [place] [address] Oct, [facility] [address] [facility] [id number] [address] [place] [address] Oct, [facility] [address] [facility] [id number] [address] [place] [address] Sep, [facility] [address] [facility] [id number] [address] [place] [address] Sep, [facility] [address] [facility] [id number] [address] [place] [address] Sep, IMMUNIZATIONS No Known Immunizations SOCIAL HISTORY Never Assessed REASON FOR VISIT Repository request PLAN OF CARE VITAL SIGNS MEDICATIONS Medication Instructions Dosage Frequency Start Date End Date Duration S tatus Losartan Potassium 100 mg Orally Once a day 1/2 tablet 24h Nov, Active RESULTS No Results PROCEDURES No Known procedures INSTRUCTIONS MEDICATIONS ADMINISTERED No Known Medications MEDICAL (GENERAL) HISTORY Type Description Date Medical History hypertension Medical History asthma Medical History CT 08/2016 ED-sigmoid divert iculitis, hepatic steatosis, stable bilateral low density adrenal adenomas Medical History GERD Medical History IBSD Medical History sleep apnea Surgical History cholecystectomy 03/24/17 Hospitalization History Diverticulitis-[facility] 08/2016 Hospitalization History Generalized anxiety disorder-[facility] 2015 Hospitalization History Diverticulitis-[facility]. Left AMA 04/06/17 Hospitalization History ER visit for migraine 08/2017 Hospitalization History ER visit for chest pain 01/2018
--- OUTSIDE RECORDS SUMMARY | 2020-03-17 14:49 | XMS REPORT ---
Author Author Fatimah Stack Doctor Organization [facility] Address Unknown Phone Unavailable Care Team Providers Care Editorial Assistant Name Role Phone Migration, Doctor Unavailable Unavailable PROBLEMS Type Condition ICD9-CM Code EVA34-VD Code Onset Dates Condition S tatus SNOMED Code Problem Essential (primary) hypertension I10 Active 92099601 Problem CAP (community acquired pneumonia) J18.9 Active 193316704 Problem Elevated LDL cholesterol level E78.0 Active 104963879 Problem Anxiety F41.9 Active 16506340 Problem Insomnia, unspecified type G47.00 Act nathan 626778970 Problem Diverticulitis of large inte simon without perforation or abscess without bleeding K57.32 Active 1446525 Problem Biliary dyskinesia K82.8 Active 1 29854987 Problem Migraine with aura and without status migrainosu s, not intractable G43.109 Active 9963245 Problem Lumbago with sciatica, right side M54.41 Active 114401624 Problem Other chronic pain G89.29 Active 8 0208651 Problem Tobacco abuse Z72.0 Active 304575 000 Problem Dysthymia F34.1 Active 54816622 Problem Diverticulitis of large inte simon, unspecified bleeding status, unspecified complication status K57.32 Active 7778391 Problem Diverticulitis K57.92 Active 45805 6006 Problem RUQ abdominal pain R10.11 Active 3 91057335 Problem Morbid obesity E66.01 Active 44223 6002 Problem Sleep apnea, unspecified type G47.30 Active 51746696 Problem BMI 45.0-49.9, adult Z68.42 Active 348832738 Problem Obstructive sleep apnea syndrome G47.33 Active 89936237 ALLERGIES No Information ENCOUNTERS Encounter Location Date Diagnosis [facility] [address] [id number] [place] [id number] Feb, [facility] [address] [id number] [facility] S [id number] Dec, BMI 45.0-49.9, adult Z68.42 ; Phantom pa in G54.6 ; Anxiety F41.9 and Dysthymia F34.1 [facility] [place] [address] [id number] [place] [id number] Nov, BMI 45.0-49.9, adult Z68.42 ; 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 [place] [address] [id number] [place] [id number] Sep, [facility] [id number] [place] [id number] Sep, Dental examination Z01.20 an d Caries K02.9 [facility] [place] [address] [id number] [place] [id number] Sep, 2018 Dysthymia F34.1 and Diverticulitis K57.9 2 [facility] [place] [address] [id number] [place] [id number] Sep, [facility] [address] [place] [id number] [id number] Aug, Essential (primary) hypertension I10 ; D yspnea on exertion R06.09 ; Obstructive sleep apnea syndrome G47.33 and Tobacco abuse Z72.0 [facility] [place] [address] [id number] [place] [id number] Aug, BMI 45.0-49.9, adult Z68.42 and Divertic ulitis K57.92 [facility] [place] [address] [id number] [place] [id number] Jul, Lumbago with sciatica, right side M54.41 and Dysthymia F34.1 [facility] [place] [address] [id number] [place] [id number] Jul, BMI 45.0-49.9, adult Z68.42 ; Dysthymia F34.1 ; Lumbago with sciatica, right side M54.41 and Essential (primary) hypertension I10 [facility] [address] [facility] [id number] [place] [id number] Jun, BMI 45.0-49.9, adult Z68.42 ; Essential (primary) hypertension I10 ; Dysthymia F34.1 ; Lumbago with sciatica, right side M54.41 and Mild intermittent asthma with acute exacerbation J45.21 [facility] [address] [facility] [id number] [place] [id number] Jun, [facility] [address] [facility] [id number] [address] [place] [address] Jun, Chest congestion R09.89 ; Co ugh R05 and BMI 45.0-49.9, adult Z68.42 [place] [address] [facility] [address] [id number] [id number] Jun, Dental examination Z01.[address] [id number] [place] [id number] May, Essential (primary) hypertension I10 ; L umbago with sciatica, right side M54.41 ; Anxiety F41.9 and BMI 45.0-49.9, adult Z68.42 [facility] [address] [facility] [address] [id number] [id number] May, Essential (primary) hypertension I10 ; O ther chest pain R07.89 ; Dyspnea on exertion R06.09 ; Tobacco abuse Z72.0 ; Sleep apnea, unspecified type G47.30 ; BMI 45.0-49.9, adult Z68.42 and Morbid obesity E66.01 [facility] [address] [facility] [id number] [address] [place] [address] May, BMI 45.0-49.9, adult Z68.42 [facility] [id number] [place] [id number] May, BMI 45.0-49.9, adult Z68.42 ; Lumbago wi th sciatica, right side M54.41 ; Anxiety F41.9 and Essential (primary) hypertension I10 [facility] [address] [facility] [id number] [address] [address] Apr, [facility] [place] [address] [id number] [place] [id number] Apr, Anxiety F41.9 [facility] [place] [address] [id number] [place] [id number] Apr, Anxiety F41.9 [facility] [place] [address] [id number] [place] [id number] Apr, [facility] [id number] [place] [id number] Apr, Dental examination Z01.20 [facility] [place] [address] [id number] [place] [id number] Apr, Anxiety F41.9 [facility] [place] [address] [id number] [place] [id number] Apr, Anxiety F41.9 and Lumbago with sciatica, right side M54.41 [facility] [place] [address] [id number] [place] [id number] March, Anxiety F41.9 [facility] [place] [address] [id number] [place] [id number] March, Diverticulitis of large intestine, unspe cified bleeding status, unspecified complication status K57.32 ; Anxiety F41.9 and Essential (primary) hypertension I10 [facility] [place] [address] [id number] [place] [id number] March, RUQ abdominal pain R10.11 [facility] [address] [facility] [id number] [address] [place] [address] Feb, Wheezing on auscultation R06 .2 [facility] [place] [address] [id number] [place] [id number] Feb, Anxiety F41.9 [facility] [address] [id number] [place] [id number] Feb, [facility] [place] [address] [id number] [place] [id number] Jan, BMI 50.0-59.9, adult Z68.43 ; Anxiety F4 1.9 ; Chest pain, unspecified type R07.9 and Essential (primary) hypertension I[address] [address] [id number] [id number] Jan, BMI 45.0-49.9, adult Z68.42 ; Morbid obe sity E66.01 ; Chest pain, non- cardiac R07.89 ; Anxiety F41.9 ; Essential (primary) hypertension I10 and Tobacco abuse Z72.0 [facility] [address] [facility] [address] [id number] [id number] Jan, Essential (primary) hypertension I10 [facility] [address] [id number] [place] [id number] Dec, Essential (primary) hypertension I10 ; M igraine with aura and without status migrainosus, not intractable G43.109 ; Viral syndrome B34.9 and Lumbago with sciatica, right side M54.41 [facility] [address] [id number] [place] [id number] Nov, BMI 45.0-49.9, adult Z68.42 ; Migraine w ith aura and without status migrainosus, not intractable G43.109 and Essential (primary) hypertension I10 [facility] [place] [address] [id number] [place] [id number] Nov, Essential (primary) hypertension I10 [facility] [address] [id number] [place] [id number] Nov, BMI 45.0-49.9, adult Z68.42 ; Essential (primary) hypertension I10 ; Anxiety F41.9 ; Lumbago with sciatica, right side M54.41 and Other chronic pain G89.29 [facility] [address] [id number] [place] [id number] Nov, [facility] [place] [address] [id number] [place] [id number] Aug, RUQ abdominal pain R10.11 [facility] [place] [address] [id number] [place] [id number] Aug, Essential (primary) hypertension I10 and Anxiety F41.9 [facility] [place] [address] [id number] [place] [id number] May, Essential (primary) hypertension I10 and Anxiety F41.9 [facility] [place] [address] [id number] [place] [id number] March, Diverticulitis of large intestine, unspe cified bleeding status, unspecified complication status K57.32 [facility] [address] [facility] [id number] [address] [place] [address] March, [facility] [place] [address] [facility] [id number] [place] [id number] March, [facility] [place] [address] [facility] [id number] [place] [id number] March, Chest wall pain R07.89 and Dysuria R30.0 [facility] [place] [address] [facility] [id number] [place] [id number] March, Anxiety F41.9 [facility] [place] [address] [id number] [place] [id number] Feb, Biliary dyskinesia K82.8 [facility] [place] [address] [id number] [place] [id number] Feb, Biliary dyskinesia K82.8 [facility] [place] [address] [id number] [place] [id number] Jan, Essential (primary) hypertension I10 and RUQ abdominal pain R10.11 [facility] [place] [address] [id number] [place] [id number] Jan, Essential (primary) hypertension I10 and Anxiety F41.9 [facility] [place] [address] [facility] [id number] [place] [id number] Dec, Essential (primary) hypertension I10 [facility] [place] [address] [id number] [place] [id number] Nov, Migraine with aura and without status mi grainosus, not intractable G43.109 and Essential (primary) hypertension I10 [facility] [place] [address] [id number] [place] [id number] Nov, Anxiety F41.9 ; Migraine with aura and w ithout status migrainosus, not intractable G43.109 and Insomnia, unspecified type G47.00 [facility] [place] [address] [id number] [place] [id number] Oct, Migraine with aura and without status mi grainosus, not intractable G43.109 [facility] [place] [address] [id number] [place] [id number] Oct, Anxiety F41.9 and Essential (primary) hy pertension I10 [facility] [address] [facility] [id number] [address] [place] [address] Oct, [facility] [address] [facility] [id number] [address] [place] [address] Sep, [facility] [place] [address] [id number] [place] [id number] Sep, Diverticulitis of large intestine withou t perforation or abscess without bleeding K57.32 and Anxiety F41.9 [facility] [place] [address] [id number] [place] [id number] Aug, Diverticulitis of large intestine withou t perforation or abscess without bleeding K57.32 [facility] [address] [id number] [address] [place] [address] Aug, [facility] [place] [address] [id number] [place] [id number] Aug, [facility] [address] [facility] [id number] [address] [place] [address] Aug, [facility] [place] [address] [id number] [place] [id number] Aug, [facility] [place] [address] [place] [id number] [place] [id number] Jul, Ingrown left big toenail L60.0 [facility] [address] [place] [id number] [place] [address], [place] [id number] Jul, [facility] [address] [place] [id number] [place] [address], [place] [id number] Jul, Ingrowing toenail of right foot L60.0 [facility] [address] [place] [id number] [place] [address], [place] [id number] Apr, [facility] [address] [place] [id number] [place] [address], [place] [id number] Apr, RUQ abdominal pain R10.11 ; Fatty liver disease, nonalcoholic K76.0 ; Hx of hyperglycemia Z86.39 ; Elevated alanine aminotransferase (ALT) level R74.0 ; Elevated LDL cholesterol level E78.0 and Prediabetes R73.09 [facility] [address] [place] [id number] [place] [address], [place] [id number] Apr, RUQ abdominal pain R10.11 ; Mild persist ent asthma without complication J45.30 ; Anxiety F41.9 and Essential (primary) hypertension I10 [facility] [address] [place] [id number] [place] [address], [place] [id number] March, Wheezing R06.2 and Cough R05 [facility] [address] [place] [id number] [place] [address], [place] [id number] March, [facility] [address] [place] [id number] [place] [address], [place] [id number] March, [facility] [address] [place] [id number] [place] [address], [place] S [id number] March, Acute severe exacerbation of asthma J45. 51 ; Cough R05 and Cough headache G44.83 [place] [address] [place] [id number] [place] [id number] Feb, Mild intermittent asthma with acute exac erbation J45.21 and Transient insomnia F51.02 [facility] [address] [place] [id number] [place] [id number] Feb, Pigmented skin lesion of uncertain natur e L81.9 [facility] [address] [facility] [id number] [place] [id number] Feb, 2016 Anxiety F41.9 and Essential (primary) hy pertension I10 [facility] [address] [facility] [id number] [place] [id number] Jan, [facility] [address] [facility] [id number] [place] [id number] Jan, Routine gynecological examination Z01.41 9 and Encounter for Papanicolaou smear for cervical cancer screening Z12.4 [facility] [address] [facility] [id number] [place] [id number] 07 Jan, 2016 Essential (primary) hypertension I10 and Anxiety F41.9 [facility] [address] [facility] [id number] [place] S [id number] Dec, 2015 Essential (primary) hypertension I10 and Anxiety F41.9 [facility] [address] [facility] [id number] [place] [id number] Nov, Essential (primary) hypertension I10 [facility] [address] [id number] [id number] Aug, [facility] [address] [facility] [id number] [place] [id number] Aug, CAP (community acquired pneumonia) J18.9 [facility] [address] [facility] [id number] [place] [id number] Aug, CAP (community acquired pneumonia) J18.9 [facility] [address] [id number] [id number] Aug, CAP (community acquired pneumonia) J18.9 [facility] [address] [facility] [id number] [place] [id number] Aug, CAP (community acquired pneumonia) J18.9 and Essential (primary) hypertension I10 [facility] [address] [facility] [id number] [place] [id number] Aug, CAP (community acquired pneumonia) J18.9 [facility] [address] [facility] [id number] [place] [address] Apr, [facility] [address] [id number] [address] [place] [address], [place] [address] Feb, [facility] [address] [id number] [address] [place] [address], [place] [address] Feb, [facility] [place] [address] [id number] [place] [id number] Jan, [facility] [address] [id number] [address] [place] [address], [place] [address] Jan, [facility] [address] [id number] [address] [place] [address], [place] [address] Nov, [facility] [place] [address] [id number] [place] [id number] Nov, [facility] [address] [id number] [address] [place] [address], [place] [address] Nov, [facility] [place] [address] [id number] [place] [id number] Oct, [facility] [address] [id number] [address] [place] [address], [place] [address] Oct, [facility] [place] [address] [id number] [place] [id number] Sep, [facility] [address] [id number] [address] [place] [address], [place] [address] Sep, [facility] [place] [address] [id number] [place] [id number] Jun, [facility] [address] [id number] [address] [place] [address], [place] [address] Jun, [facility] [place] [address] [id number] [place] [id number] Jun, [facility] [address] [id number] [address] [place] [address], [place] [address] Jun, [facility] [place] [address] [id number] [place] [id number] May, [facility] [address] [facility] [id number] [address] [place] [address] May, [facility] [place] [address] [id number] [place] [id number] Dec, [facility] [address] [facility] [id number] [address] [place] [address] Dec, [facility] [place] [address] [id number] [place] [id number] Feb, [facility] [place] [address] [id number] [place] [id number] Feb, [facility] [place] [address] [id number] [place] [id number] Feb, [facility] [address] [facility] [id number] [address] [place] [address] Feb, [facility] [place] [address] [id number] [place] [id number] Feb, [facility] [place] [address] [id number] [place] [id number] Feb, [facility] [address] [facility] [id number] [address] [place] [address] Feb, [facility] [address] [facility] [id number] [address] [place] [address] Feb, [facility] [address] [facility] [id number] [address] [place] [address] Feb, [facility] [place] [address] [id number] [place] [id number] Feb, [facility] [place] [address] [id number] [place] [id number] Feb, [facility] [place] [address] [id number] [place] [id number] Jan, [facility] [place] [address] [id number] [place] [id number] Nov, [facility] [place] [address] [id number] [place] [id number] Nov, [facility] [address] [id number] [address] [place] [address] Oct, [facility] [address] [id number] [address] [place] [address] Apr, [facility] [address] [id number] [address] [place] [address] Dec, [facility] [address] [id number] [address] [place] [address] Nov, [facility] [address] [id number] [address] [place] [address] Oct, [facility] [address] [facility] [id number] [address] [place] [address] Oct, [facility] [address] [facility] [id number] [address] [place] [address] Sep, [facility] [address] [facility] [id number] [address] [place] [address] Sep, [facility] [address] [facility] [id number] [address] [place] [address] Sep, IMMUNIZATIONS No Known Immunizations SOCIAL HISTORY Never Assessed [place]ASON FOR VISIT [facility] [place] VITAL SIGNS MEDICATIONS Unknown [...]
--- OUTSIDE RECORDS SUMMARY | 2020-03-17 14:49 | XMS REPORT ---
Author Author Fatimah Stack Doctor Organization [facility] Address Unknown Phone Unavailable Care Team Providers Care Battery Loader Name Role Phone Migration, Doctor Unavailable Unavailable PROBLEMS Type Condition ICD9-CM Code ZNK87-CW Code Onset Dates Condition S tatus SNOMED Code Problem Essential (primary) hypertension I10 Active 56391323 Problem CAP (community acquired pneumonia) J18.9 Active 397950751 Problem Elevated LDL cholesterol level E78.0 Active 637130319 Problem Anxiety F41.9 Active 24455293 Problem Insomnia, unspecified type G47.00 Act nathan 320219649 Problem Diverticulitis of large inte simon without perforation or abscess without bleeding K57.32 Active 0362234 Problem Biliary dyskinesia K82.8 Active 1 08964604 Problem Migraine with aura and without status migrainosu s, not intractable G43.109 Active 7249084 Problem Lumbago with sciatica, right side M54.41 Active 621660544 Problem Other chronic pain G89.29 Active 8 9329668 Problem Tobacco abuse Z72.0 Active 290691 000 Problem Dysthymia F34.1 Active 37198536 Problem Diverticulitis of large inte simon, unspecified bleeding status, unspecified complication status K57.32 Active 0944818 Problem Diverticulitis K57.92 Active 21830 6006 Problem RUQ abdominal pain R10.11 Active 3 01135940 Problem Morbid obesity E66.01 Active 04347 6002 Problem Sleep apnea, unspecified type G47.30 Active 33346189 Problem BMI 45.0-49.9, adult Z68.42 Active 734277215 Problem Obstructive sleep apnea syndrome G47.33 Active 80326787 ALLERGIES No Information ENCOUNTERS Encounter Location Date Diagnosis [facility] [address] [id number] [place] [id number] Feb, [facility] [address] [id number] 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, 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 ; Dysthymia F34.1 ; Anxiety F41.9 and Essential (primary) hypertension I10 [facility] [place] [address] [id number] [place] [id number] Oct, Essential (primary) hypertension I10 [facility] [address] [id number] [address] [place] [address] [id number] Oct, Dental examination Z01.20 [facility] [place] [address] [id number] [place] [id number] Sep, [facility] [id number] [place] [id number] Sep, Dental examination Z01.20 an d Caries K02.9 [facility] [place] [address] [id number] [place] [id number] 06 Sep, 2018 Dysthymia F34.1 and Diverticulitis K57.9 2 [facility] [place] [address] [id number] [place] [id number] Sep, [facility] [address] [id number] [id number] Aug, Essential (primary) hypertension I10 ; D yspnea on exertion R06.09 ; Obstructive sleep apnea syndrome G47.33 and Tobacco abuse Z72.0 [facility] [place] [address] [id number] [place] [id number] Aug, BMI 45.0-49.9, adult Z68.42 and Divertic ulitis K57.92 [facility] [place] [address] [id number] [place] [id number] Jul, Lumbago with sciatica, right side M54.41 and Dysthymia F34.1 [facility] [place] [address] [id number] [place] [id number] Jul, BMI 45.0-49.9, adult Z68.42 ; Dysthymia F34.1 ; Lumbago with sciatica, right side M54.41 and Essential (primary) hypertension I10 [facility] [address] [facility] [id number] [place] [id number] Jun, BMI 45.0-49.9, adult Z68.42 ; Essential (primary) hypertension I10 ; Dysthymia F34.1 ; Lumbago with sciatica, right side M54.41 and Mild intermittent asthma with acute exacerbation J45.21 [facility] 120 [facility] [id number] [place] [id number] Jun, [facility] [address] [facility] [id number] [address] [place] [address] Jun, Chest congestion R09.89 ; Co ugh R05 and BMI 45.0-49.9, adult Z68.42 [place] [address] [facility] [address] [id number] [id number] Jun, Dental examination Z01.[address] [id number] [place] [id number] May, Essential (primary) hypertension I10 ; L umbago with sciatica, right side M54.41 ; Anxiety F41.9 and BMI 45.0-49.9, adult Z68.42 [facility] [address] [facility] [id number][place] [id number] May, Essential (primary) hypertension I10 ; O ther chest pain R07.89 ; Dyspnea on exertion R06.09 ; Tobacco abuse Z72.0 ; Sleep apnea, unspecified type G47.30 ; BMI 45.0-49.9, adult Z68.42 and Morbid obesity E66.01 [facility] [address] [facility] [id number] [address] [place] [address] May, BMI 45.0-49.9, adult Z68.42 [facility] [id number] [place] [id number] May, BMI 45.0-49.9, adult Z68.42 ; Lumbago wi th sciatica, right side M54.41 ; Anxiety F41.9 and Essential (primary) hypertension I10 [facility] [address] [facility] [id number] [address] [place] [address] Apr, [facility] [place] [address] [id number] [place] [id number] Apr, Anxiety F41.9 [facility] [place] [address] [id number] [place] [id number] Apr, Anxiety F41.9 [facility] [place] [address] [id number] [place] [id number] Apr, [facility] [facility] [address] [id number] [place] [id number] Apr, Dental examination Z01.20 [facility] [place] [address] [id number] [place] [id number] Apr, Anxiety F41.9 [facility] [place] [address] [id number] [place] [id number] Apr, Anxiety F41.9 and Lumbago with sciatica, right side M54.41 [facility] [place] [address] [id number] [place] [id number] March, Anxiety F41.9 [facility] [place] [address] [id number] [place] [id number] March, Diverticulitis of large intestine, unspe cified bleeding status, unspecified complication status K57.32 ; Anxiety F41.9 and Essential (primary) hypertension I10 [facility] [place] [address] [id number] [place] [id number] March, RUQ abdominal pain R10.11 [facility] [address] [facility] [id number] [address] [place] [address] Feb, Wheezing on auscultation R06 .2 [facility] [place] [address] [id number] [place] [id number] Feb, Anxiety F41.9 [facility] [address] [id number] [place] [id number] Feb, [facility] [place] [address] [id number] [place] [id number] Jan, BMI 50.0-59.9, adult Z68.43 ; Anxiety F4 1.9 ; Chest pain, unspecified type R07.9 and Essential (primary) hypertension I[address] [id number] [id number] Jan, BMI 45.0-49.9, adult Z68.42 ; Morbid obe sity E66.01 ; Chest pain, non- cardiac R07.89 ; Anxiety F41.9 ; Essential (primary) hypertension I10 and Tobacco abuse Z72.0 [facility] [address] [id number][place] [id number] Jan, Essential (primary) hypertension I10 [facility] [address] [id number] [place] [id number] Dec, Essential (primary) hypertension I10 ; M igraine with aura and without status migrainosus, not intractable G43.109 ; Viral syndrome B34.9 and Lumbago with sciatica, right side M54.41 [facility] [address] [id number] [place] [id number] Nov, BMI 45.0-49.9, adult Z68.42 ; Migraine w ith aura and without status migrainosus, not intractable G43.109 and Essential (primary) hypertension I10 [facility] [place] [address] [id number] [place] [id number] Nov, Essential (primary) hypertension I10 [facility] [address] [id number] [place] [id number] Nov, BMI 45.0-49.9, adult Z68.42 ; Essential (primary) hypertension I10 ; Anxiety F41.9 ; Lumbago with sciatica, right side M54.41 and Other chronic pain G89.29 [facility] [address] [id number] [place] [id number] Nov, [facility] [place] [address] [id number] [place] [id number] Aug, RUQ abdominal pain R10.11 [facility] [place] [address] [id number] [place] [id number] Aug, Essential (primary) hypertension I10 and Anxiety F41.9 [facility] [place] [address] [id number] [place] [id number] May, Essential (primary) hypertension I10 and Anxiety F41.9 [facility] [place] [address] [id number] [place] [id number] March, Diverticulitis of large intestine, unspe cified bleeding status, unspecified complication status K57.32 [facility] [address] [facility] [id number] [address] [place] [address] March, [facility] [place] [address] [facility] [id number] [place] [id number] March, [facility] [place] [address] [facility] [id number] [place] [id number] March, Chest wall pain R07.89 and Dysuria R30.0 [facility] [place] [address] [facility] [id number] [place] [id number] March, Anxiety F41.9 [facility] [place] [address] [id number] [place] [id number] Feb, Biliary dyskinesia K82.8 [facility] [place] [address] [id number] [place] [id number] Feb, Biliary dyskinesia K82.8 [facility] [place] [address] [id number] [place] [id number] Jan, Essential (primary) hypertension I10 and RUQ abdominal pain R10.11 [facility] [place] [address] [id number] [place] [id number] Jan, Essential (primary) hypertension I10 and Anxiety F41.9 [facility] [place] [address] [facility] [id number] [place] [id number] Dec, Essential (primary) hypertension I10 [facility] [place] [address] [id number] [place] [id number] Nov, Migraine with aura and without status mi grainosus, not intractable G43.109 and Essential (primary) hypertension I10 [facility] [place] [address] [id number] [place] [id number] Nov, Anxiety F41.9 ; Migraine with aura and w ithout status migrainosus, not intractable G43.109 and Insomnia, unspecified type G47.00 [facility] [place] [address] [id number] [place] [id number] Oct, Migraine with aura and without status mi grainosus, not intractable G43.109 [facility] [place] [address] [id number] [place] [id number] Oct, Anxiety F41.9 and Essential (primary) hy pertension I10 [facility] [address] [facility] [id number] [address] [place] [address] Oct, [facility] [address] [facility] [id number] [address] [place] [id number] Sep, [facility] [place] [address] [id number] [place] [id number] Sep, Diverticulitis of large intestine withou t perforation or abscess without bleeding K57.32 and Anxiety F41.9 [facility] [place] [address] [id number] [place] [id number] Aug, Diverticulitis of large intestine withou t perforation or abscess without bleeding K57.32 [facility] [address] [id number] [address] [place] [id number] Aug, [facility] [place] [address] [id number] [place] [id number] Aug, [facility] [address] [facility] [id number] [address] [place] [address] Aug, [facility] [place] [address] [id number] [place] [id number] Aug, [facility] [place] [address] [place] [id number] [place] [id number] Jul, Ingrown left big toenail L60.0 [facility] [address] [place] [id number] [place] [address], [place] [id number] Jul, [facility] [address] [place] [id number] [place] [address], [place] [id number] Jul, Ingrowing toenail of right foot L60.0 [facility] [address] [place] [id number] [place] [address], [place] [id number] Apr, [facility] [address] [id number] [place] [address], [place] [id number] Apr, RUQ abdominal pain R10.11 ; Fatty liver disease, nonalcoholic K76.0 ; Hx of hyperglycemia Z86.39 ; Elevated alanine aminotransferase (ALT) level R74.0 ; Elevated LDL cholesterol level E78.0 and Prediabetes R73.09 [facility] [address] [place] [id number] [place] [address], [place] [id number] Apr, RUQ abdominal pain R10.11 ; Mild persist ent asthma without complication J45.30 ; Anxiety F41.9 and Essential (primary) hypertension I10 [facility] [address] [place] [id number] [place] [address], [place] [id number] March, Wheezing R06.2 and Cough R05 [facility] [address] [place] [id number] [place] [address], [place] [id number] March, [facility] [address] [id number] [place] [address], [place] [id number] March, [facility] [address] [id number] [place] [address], [place] [id number] March, Acute severe exacerbation of asthma J45. 51 ; Cough R05 and Cough headache G44.83 [place] [address] [place] [id number] [place] [id number] Feb, Mild intermittent asthma with acute exac erbation J45.21 and Transient insomnia F51.02 [facility] [address] [place] [id number] [place] [id number] Feb, Pigmented skin lesion of uncertain natur e L81.9 [facility] [address] [facility] [id number] [place] [id number] 07 Feb, 2016 Anxiety F41.9 and Essential (primary) hy pertension I10 [facility] [address] [facility] [id number] [place] [id number] Jan, [facility] [address] [facility] [id number] [place] [id number] Jan, Routine gynecological examination Z01.41 9 and Encounter for Papanicolaou smear for cervical cancer screening Z12.4 [facility] [address] [facility] [id number] [place] [id number] 07 Jan, 2016 Essential (primary) hypertension I10 and Anxiety F41.9 [facility] [address] [facility] [id number] [place] [id number] 10 Dec, 2015 Essential (primary) hypertension I10 and Anxiety F41.9 [facility] [address] [facility] [id number] [place] [id number] Nov, Essential (primary) hypertension I10 [facility] [address] [id number] [id number] Aug, [facility] [address] [facility] [id number] [place] [id number] Aug, CAP (community acquired pneumonia) J18.9 [facility] [address] [facility] [id number] [place] [id number] Aug, CAP (community acquired pneumonia) J18.9 [facility] [address] [id number][place] [id number] Aug, CAP (community acquired pneumonia) J18.9 [facility] [address] [facility] [id number] [place] [id number] Aug, CAP (community acquired pneumonia) J18.9 and Essential (primary) hypertension I10 [facility] [address] [facility] [id number] [place] [id number] Aug, CAP (community acquired pneumonia) J18.9 [facility] [address] [facility] [id number] [place] [address] Apr, [facility] [address] [id number] [address] [place] [address], [place] [address] Feb, [facility] [address] [id number] [address] [place] [address], [place] [address] Feb, [facility] [place] [address] [id number] [place] [id number] Jan, [facility] [address] [id number] [address] [place] [address], [place] [address] Jan, [facility] [address] [id number] [address] [place] [address], [place] [address] Nov, [facility] [place] [address] [id number] [place] [id number] Nov, [facility] [address] [id number] [address] [place] [address], [place] [address] Nov, [facility] [place] [address] [id number] [place] [id number] Oct, [facility] [address] [id number] [address] [place] [address], [place] [address] Oct, [facility] [place] [address] [id number] [place] [id number] Sep, [facility] [address] [id number] [address] [place] [address], [place] [address] Sep, [facility] [place] [address] [id number] [place] [id number] Jun, [facility] [address] [id number] [address] [place] [address], [place] [address] Jun, [facility] [place] [address] [id number] [place] [id number] Jun, [facility] [address] [id number] [address] [place] [address], [place] [address] Jun, [facility] [place] [address] [id number] [place] [id number] May, [facility] [address] [facility] [id number] [address] [place] [address] May, [facility] [place] [address] [id number] [place] [id number] Dec, [facility] [address] [facility] [id number] [address] [place] [address] Dec, [facility] [place] [address] [id number] [place] [id number] Feb, [facility] [place] [address] [id number] [place] [id number] Feb, [facility] [place] [address] [id number] [place] [id number] Feb, [facility] [address] [facility] [id number] [address] [place] [address] Feb, [facility] [place] [address] [id number] [place] [id number] Feb, [facility] [place] [address] [id number] [place] [id number] Feb, [facility] [address] [facility] [id number] [address] [place] [phone] Feb, [facility] [address] [facility] [id number] [address] [place] [address] Feb, [facility] [address] [facility] [id number] [address] [place] [id number] Feb, [facility] [place] [address] [id number] [place] [id number] Feb, [facility] [place] [address] [id number] [place] [id number] Feb, [facility] [place] [address] [id number] [place] [id number] Jan, [facility] [place] [address] [id number] [place] [id number] Nov, [facility] [place] [address] [id number] [place] [id number] Nov, [facility] [address] [id number] [address] [place] [id number] Oct, [facility] [address] [id number] [address] [place] [address] Apr, [facility] [address] [id number] [address] [place] [address] Dec, [facility] [address] [id number] [address] [place] [id number] Nov, [facility] [address] [id number] [address] [place] [id number] Oct, [facility] [address] [facility] [id number] [address] [place] [id number] Oct, [facility] [address] [facility] [id number] [address] [place] [address] Sep, [facility] [address] [facility] [id number] [address] [place] [address] Sep, [facility] [address] [facility] [id number] [address] [place] [address] Sep, IMMUNIZATIONS No Known Immunizations SOCIAL HISTORY Never Assessed REASON FOR VISIT [facility] [place] VITAL SIGNS MEDICATIONS Unknown [...]
--- OUTSIDE RECORDS SUMMARY | 2020-03-17 14:49 | XMS REPORT ---
Author Author Fatimah JEFFRIES Organization [facility] Address [address] [place] [address] Care Team Providers Care Continuous Absorption Process Operator Name Role Phone COSTA JEFFRIES Unavailable PROBLEMS Type Condition ICD9-CM Code POI05-MC Code Onset Dates Condition S tatus SNOMED Code Problem Lumbago with sciatica, right side M54.41 Active 584323146 Problem Tobacco abuse Z72.0 Active 712490 000 Problem Other chronic pain G89.29 Active 8 0920345 Problem Diverticulitis K57.92 Active 38933 6006 Problem Dysthymia F34.1 Active 25515923 Problem Sleep apnea, unspecified type G47.30 Active 22496699 Problem Morbid obesity E66.01 Active 90613 6002 Problem Obstructive sleep apnea syndrome G47.33 Active 78449750 Problem BMI 45.0-49.9, adult Z68.42 Active 248815647 Problem Anxiety F41.9 Active 74029476 Problem Elevated LDL cholesterol level E78.0 Active 656626800 Problem CAP (community acquired pneumonia) J18.9 Active 423135680 Problem Essential (primary) hypertension I10 Active 12796734 Problem Migraine with aura and without status migrainosu s, not intractable G43.109 Active 8343137 Problem Biliary dyskinesia K82.8 Active 1 64603842 Problem Diverticulitis of large inte simon without perforation or abscess without bleeding K57.32 Active 8626965 Problem RUQ abdominal pain R10.11 Active 3 66363369 Problem Insomnia, unspecified type G47.00 Act nathan 624711213 Problem Diverticulitis of large inte simon, unspecified bleeding status, unspecified complication status K57.32 Active 1090881 ALLERGIES Substance Reaction Event Type Date Status Lisinopril cough Drug Allergy May, Active BuSpar suicidal thoughts, increased anxiety Drug Allergy 2017 Active ENCOUNTERS Encounter Location Date Diagnosis [facility] [address] [id number] [place] [id number] Feb, [facility] [place] [facility] [address] [id number] [address]KS [place] [id number] Oct, [facility] [place] [address] [id number] [place] [id number] Sep, [facility] [address] [id number] [place] [id number] Sep, Dental examination Z01.20 an d Caries K02.9 [facility] [address] [id number] [place] [id number] Sep, Dysthymia F34.1 and Diverticulitis K57.9 2 [facility] [address] [id number] [place] [id number] Sep, [place] [address] [id number] [id number] Aug, Essential (primary) hypertension I10 ; D yspnea on exertion R06.09 ; Obstructive sleep apnea syndrome G47.33 and Tobacco abuse Z72.0 [facility] [address] [id number] [place] [id number] Aug, BMI 45.0-49.9, adult Z68.42 and Divertic ulitis K57.92 [facility] [address] [id number] [place] [id number] Jul, Lumbago with sciatica, right side M54.41 and Dysthymia F34.1 [facility] [place] [address] [id number] [place] [id number] Jul, BMI 45.0-49.9, adult Z68.42 ; Dysthymia F34.1 ; Lumbago with sciatica, right side M54.41 and Essential (primary) hypertension I10 [facility] [place] [address] [id number] [place] [id number] Jun, BMI 45.0-49.9, adult Z68.42 ; Essential (primary) hypertension I10 ; Dysthymia F34.1 ; Lumbago with sciatica, right side M54.41 and Mild intermittent asthma with acute exacerbation J45.21 [facility] [address] [facility] [id number] [place] [id number] Jun, [facility] [address] [facility] [id number] [address] [place] [address] Jun, Chest congestion R09.89 ; Co ugh R05 and BMI 45.0-49.9, adult Z68.[address] [id number][place] [id number] Jun, Dental examination Z01.20 [facility] [address] [facility] [id number] [place] [id number] May, Essential (primary) hypertension I10 ; L umbago with sciatica, right side M54.41 ; Anxiety F41.9 and BMI 45.0-49.9, adult Z68.[address] [id number] [place] [id number] May, Essential (primary) hypertension I10 ; O ther chest pain R07.89 ; Dyspnea on exertion R06.09 ; Tobacco abuse Z72.0 ; Sleep apnea, unspecified type G47.30 ; BMI 45.0-49.9, adult Z68.42 and Morbid obesity E66.01 [facility] [address] [place] [id number] [address] [place] [address] May, BMI 45.0-49.9, adult Z68.42 [facility] [id number] [place] [id number] May, BMI 45.0-49.9, adult Z68.42 ; Lumbago wi th sciatica, right side M54.41 ; Anxiety F41.9 and Essential (primary) hypertension I10 [facility] [address] [facility] [id number] [address] [place] [address] Apr, [facility] [address] [facility] [id number] [place] [id number] Apr, Anxiety F41.9 [facility] [address] [place] [id number] [place] [address], [place] [id number] Apr, Anxiety F41.9 [facility] [place] [address] [id number] [place] [id number] Apr, [facility] [address] [id number][place] [id number] Apr, Dental examination Z01.20 [facility] [place] [address] [id number] [place] [id number] Apr, Anxiety F41.9 [facility] [place] [address] [id number] [place] [id number] Apr, Anxiety F41.9 and Lumbago with sciatica, right side M54.41 [facility] [place] [address] [id number] [place] [id number] March, Anxiety F41.9 [facility] [place] [address] [facility] [id number] [place] [id number] March, Diverticulitis of large intestine, unspe cified bleeding status, unspecified complication status K57.32 ; Anxiety F41.9 and Essential (primary) hypertension I10 [facility] [place] [address] [id number] [place] [id number] March, RUQ abdominal pain R10.11 [facility] [address] [facility] [id number] 100KS [place] [address] Feb, Wheezing on auscultation R06 .2 [facility] [place] [address] [facility] [id number] [place] [id number] Feb, Anxiety F41.9 [facility] [place] [address] [id number] [place] [id number] Feb, [facility] [address] [id number] [place] [id number] Jan, BMI 50.0-59.9, adult Z68.43 ; Anxiety F4 1.9 ; Chest pain, unspecified type R07.9 and Essential (primary) hypertension I10 [facility] [address] [id number][place] [id number] Jan, BMI 45.0-49.9, adult Z68.42 ; Morbid obe sity E66.01 ; Chest pain, non- cardiac R07.89 ; Anxiety F41.9 ; Essential (primary) hypertension I10 and Tobacco abuse Z72.0 [facility] [place] [id number] [id number] [place] [id number] Jan, Essential (primary) hypertension I10 [facility] [place] [address] [id number] [place] [id number] Dec, Essential (primary) hypertension I10 ; M igraine with aura and without status migrainosus, not intractable G43.109 ; Viral syndrome B34.9 and Lumbago with sciatica, right side M54.41 [facility] [place] [address] [id number] [place] [id number] Nov, BMI 45.0-49.9, adult Z68.42 ; Migraine w ith aura and without status migrainosus, not intractable G43.109 and Essential (primary) hypertension I10 [facility] [place] [address] [id number] [place] [id number] Nov, Essential (primary) hypertension I10 [facility] [place] [address] [id number] [place] [id number] Nov, BMI 45.0-49.9, adult Z68.42 ; Essential (primary) hypertension I10 ; Anxiety F41.9 ; Lumbago with sciatica, right side M54.41 and Other chronic pain G89.29 [facility] [place] [address] [id number] [place] [id number] Nov, [facility] [place] [address] [id number] [place] [id number] Aug, RUQ abdominal pain R10.11 [facility] [place] [address] [id number] [place] [id number] Aug, Essential (primary) hypertension I10 and Anxiety F41.9 [facility] [place] [address] [id number] [place] [id number] May, Essential (primary) hypertension I10 and Anxiety F41.9 [facility] [place] [address] [id number] [place] [id number] March, Diverticulitis of large intestine, unspe cified bleeding status, unspecified complication status K57.32 [facility] [address] [id number] 100[place] [address] March, [facility] [place] [address] [id number] [place] [id number] March, [facility] [place] [address] [id number] [place] [id number] March, Chest wall pain R07.89 and Dysuria R30.0 [facility] [place] [address] [id number] [place] [id number] March, Anxiety F41.9 [facility] [place] [address] [id number] [place] [id number] Feb, Biliary dyskinesia K82.8 [facility] [place] [address] [id number] [place] [id number] Feb, Biliary dyskinesia K82.8 [facility] [place] [address] [id number] [place] [id number] Jan, Essential (primary) hypertension I10 and RUQ abdominal pain R10.11 [facility] [place] [address] [id number] [place] [id number] Jan, Essential (primary) hypertension I10 and Anxiety F41.9 [facility] [place] [address] [id number] [place] [id number] Dec, Essential (primary) hypertension I10 [facility] [place] [address] [id number] [place] [id number] Nov, Migraine with aura and without status mi grainosus, not intractable G43.109 and Essential (primary) hypertension I10 [facility] [place] [address] [id number] [place] [id number] Nov, Anxiety F41.9 ; Migraine with aura and w ithout status migrainosus, not intractable G43.109 and Insomnia, unspecified type G47.00 [facility] [place] [address] [place] [id number] [place], [place] [address], [place] [id number] Oct, Migraine with aura and without status mi grainosus, not intractable G43.109 [facility] [address] [place] [id number] [place] [address], [place] [id number] Oct, Anxiety F41.9 and Essential (primary) hy pertension I10 [facility] [address] [place] [id number] [place] [phone] Oct, [facility] [address] [address] Sep, [facility] [address], [place] [id number] Sep, Diverticulitis of large intestine withou t perforation or abscess without bleeding K57.32 and Anxiety F41.9 [facility] [address], [place] [id number] Aug, Diverticulitis of large intestine withou t perforation or abscess without bleeding K57.32 [facility] [address] [place] [id number] [place] [phone] Aug, [facility] [address] [place] [id number] [place] [address], [place] [id number] Aug, [facility] [address] [phone] Aug, [facility] [id number] [place] [address], [place] [id number] Aug, [facility] [place] [address], [place] [id number] Jul, Ingrown left big toenail L60.0 [facility] [place] [address] [place] [id number] [place] [id number] Jul, [facility] [place] [address] [place] [address] [id number] [place] [id number] Jul, Ingrowing toenail of right foot L60.0 [facility] [place] [address] [place] [id number] [place], [place] [address], [place] [id number] Apr, [facility] [id number] [place] [id number] 10 Apr, 2016 RUQ abdominal pain R10.11 ; Fatty liver disease, nonalcoholic K76.0 ; Hx of hyperglycemia Z86.39 ; Elevated alanine aminotransferase (ALT) level R74.0 ; Elevated LDL cholesterol level E78.0 and Prediabetes R73.09 [facility] [address] [place] [id number] [place] [address], [place] [id number] 08 Apr, 2016 RUQ abdominal pain R10.11 ; Mild persist ent asthma without complication J45.30 ; Anxiety F41.9 and Essential (primary) hypertension I10 [address], [place] [id number] March, Wheezing R06.2 and Cough R05 [address], [place] [id number] March, [address], [place] [id number] March, [place] [id number] [place] [address], [place] [id number] March, Acute severe exacerbation of asthma J45. 51 ; Cough R05 and Cough headache G44.83 [place] [id number] [place] [address], [place] [id number] 18 Feb, 2016 Mild intermittent asthma with acute exac erbation J45.21 and Transient insomnia F51.02 [place] [id number] [place] [address], [place] S [id number] 13 Feb, 2016 Pigmented skin lesion of uncertain natur e L81.9 [place] [id number] [place] [address], [place] [id number] 07 Feb, 2016 Anxiety F41.9 and Essential (primary) hy pertension I10 [place] [id number] [place] [address], [place] [id number] 31 Jan, 2016 [place] [id number] [place] [address], [place] S [id number] 23 Jan, 2016 Routine gynecological examination Z01.41 9 and Encounter for Papanicolaou smear for cervical cancer screening Z12.4 [place] [id number] [place] [id number] Jan, Essential (primary) hypertension I10 and Anxiety F41.9 [facility] [address] [id number] [place] [id number] Dec, Essential (primary) hypertension I10 and Anxiety F41.9 [facility] [place] [address] [id number] [place] [id number] Nov, Essential (primary) hypertension I10 [facility] [address] [id number][place] [id number] Aug, [facility] [place] [address] [facility] [id number] [place] [id number] Aug, CAP (community acquired pneumonia) J18.9 [facility] [place] [address] [facility] [id number] [place] [id number] Aug, CAP (community acquired pneumonia) J18.9 [facility] [address] [id number][place] [id number] Aug, CAP (community acquired pneumonia) J18.9 [facility] [place] [address] [facility] [id number] [place] [id number] Aug, CAP (community acquired pneumonia) J18.9 and Essential (primary) hypertension I10 [facility] [place] [address] [id number] [place] [id number] Aug, CAP (community acquired pneumonia) J18.9 [facility] [address] [place] [id number] [address] [place] [phone] Apr, [facility] [address] [facility] [id number] [address] [place] [phone] Feb, [facility] [address] [id number] [address] [place] [phone] Feb, [facility] [place] [address] [facility] [id number] [place] [id number] Jan, [facility] [address] [place] [id number] [address] [place] [phone] Jan, [facility] [address] [id number] [address] [place] [address], [place] [address] Nov, [facility] [place] [address] [id number] [place] [id number] Nov, [facility] [address] [facility] [id number] [address] [place] [address], [place] [address] Nov, [facility] [place] [address] [id number] [place] [id number] Oct, [facility] [address] [id number] [address] [place] [address], [place] [address] Oct, [facility] [place] [address] [id number] [place] [id number] Sep, [facility] [address] [facility] [id number] [address] [place] [address], [place] [address] Sep, [facility] [place] [address] [id number] [place] [id number] Jun, [facility] [address] [id number] [address] [place] [address], [place] [phone] Jun, [facility] [place] [address] [id number] [place] [id number] Jun, [facility] [address] [facility] [id number] [address] [place] [address], [place] [address] Jun, [facility] [place] [address] [id number] [place] [id number] May, [facility] [address] [id number] [address] [place] [address], [place] [address] May, [facility] [place] [address] [id number] [place] [id number] Dec, [facility] [address] [id number] [address] [place] [address], [place] [address] Dec, [facility] [place] [address] [id number] [place] [id number] Feb, [facility] [place] [address] [id number] [place] [id number] Feb, [facility] [place] [address] [id number] [place] [id number] 17 Feb, 2013 [facility] [address] [id number] [address] [place] [address], [place] [id number] 16 Feb, 2013 [facility] [place] [address] [id number] [place] [id number] 15 Feb, 2013 [facility] [place] [address] [id number] [place] [id number] 15 Feb, 2013 [facility] [address] [id number] [address] [place] [address], [place] [id number] 14 Feb, 2013 [facility] [address] [id number] [address] [place] [address], [place] [phone] Feb, [facility] [address] [facility] [id number] [address] [place] [address], [place] [id number] Feb, [facility] [place] [address] [id number] [place] [id number] Feb, [facility] [place] [address] [id number] [place] [id number] Feb, [facility] [place] [address] [id number] [place] [id number] Jan, [facility] [place] [address] [id number] [place] [id number] Nov, [facility] [place] [address] [id number] [place] [id number] Nov, [facility] [address] [id number] [address] [place] [phone] Oct, [facility] [address] [id number] [address] [place] [phone] Apr, [facility] [address] [facility] [id number] [address] [place] [address], [place] [id number] 16 Dec, 2009 [facility] [address] [facility] [id number] [address] [place] [address], [place] [id number] Nov, [facility] [address] [facility] [id number] [address] [place] [phone] Oct, [facility] [address] [facility] [id number] [address] [place] [phone] Oct, [facility] [address] [facility] [id number] [address] [place] [phone] Sep, [facility] [address] [facility] [id number] [address] [place] [phone] Sep, [facility] [address] [facility] [id number] [address] [place] [phone] Sep, IMMUNIZATIONS No Known Immunizations SOCIAL HISTORY Never Assessed REASON FOR VISIT Cardiology consult PLAN OF CARE Activity Details Follow Up 3 Months Reason: VITAL SIGNS Height 66 in 2018-06-23 Weight 295 lbs 2018-06-23 Heart Rate 88 bpm 2018-06-23 Respiratory Rate 18 2018-06-23 Oximetry 97 % 2018-06-23 BMI 47.61 kg/m2 2018-06-23 Blood pressure systolic 148 mmHg 2018-06-23 Blood pressure diastolic 88 mmHg 2018-06-23 MEDICATIONS Medication Instructions Dosage Frequency Start Date End Date Duration S tatus Tramadol HCl 50 mg Orally 2 times a day must lasst 28 d 1 tablet a s needed Apr, Active Nitroglycerin 0.4 MG Act nathan Albuterol Sulfate 90 mcg/actuation Inhalation every 8 hrs 2 puffs by Inhalation route every 4-6 hours as needed PRN cough or wheezing 8h May, Active Losartan Potassium 100 mg Orally Once a day 1 tablet 24h Nov, 8 Not-Taking Ibuprofen 800 MG Orally Three times a day 1 tablet with food or milk as needed 8h May, Active Atenolol 100 mg Orally Once a day 1 tablet 24h Nov, Active Clonazepam ODT 1 mg Orally no more than twice a day, must la st 28 days 1 tablet on the tongue and allow to dissolve Feb, Active CompAir Nebulizer - as directed Feb, 5 d ays Active Amlodipine Besylate 5 mg Orally Once a day 1.5 tablet 24h Nov, 18 Active Sertraline HCl 50 mg Orally Once a day 1.5 tablet 24h Feb, Not-Taking RESULTS Name Result Date Reference Range Lexiscan Stress Nuclear Test 2018-08-14 Echo 2D 2018-08-14 PROCEDURES No Known procedures INSTRUCTIONS MEDICATIONS ADMINISTERED No Known Medications MEDICAL (GENERAL) HISTORY Type Description Date Medical History hypertension Medical History asthma Medical History CT 08/2016 ED-sigmoid divert iculitis, hepatic steatosis, stable bilateral low density adrenal adenomas Medical History GERD Medical History IBSD Medical History sleep apnea Surgical History cholecystectomy 03/24/17 Hospitalization History Diverticulitis-[facility] 08/2016 Hospitalization History Generalized anxiety disorder-[facility] 2015 Hospitalization History Diverticulitis-[facility] Left AMA 04/06/17 Hospitalization History ER visit for migraine 08/2017 Hospitalization History ER visit for chest pain 01/2018
--- OUTSIDE RECORDS SUMMARY | 2020-03-17 14:49 | XMS REPORT ---
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 Name Role Phone COSTA JEFFRIES Unavailable PROBLEMS Type Condition ICD9-CM Code CPD62-DY Code Onset Dates Condition S tatus SNOMED Code Problem Lumbago with sciatica, right side M54.41 Active 572245183 Problem Tobacco abuse Z72.0 Active 763903 000 Problem Other chronic pain G89.29 Active 8 3814489 Problem Diverticulitis K57.92 Active 09090 6006 Problem Dysthymia F34.1 Active 12404933 Problem Sleep apnea, unspecified type G47.30 Active 34190237 Problem Morbid obesity E66.01 Active 56363 6002 Problem Obstructive sleep apnea syndrome G47.33 Active 57471092 Problem BMI 45.0-49.9, adult Z68.42 Active 123653900 Problem Anxiety F41.9 Active 54999480 Problem Elevated LDL cholesterol level E78.0 Active 762401355 Problem CAP (community acquired pneumonia) J18.9 Active 723058097 Problem Essential (primary) hypertension I10 Active 19335423 Problem Migraine with aura and without status migrainosu s, not intractable G43.109 Active 5731758 Problem Biliary dyskinesia K82.8 Active 1 62051285 Problem Diverticulitis of large inte simon without perforation or abscess without bleeding K57.32 Active 9273061 Problem RUQ abdominal pain R10.11 Active 3 14204086 Problem Insomnia, unspecified type G47.00 Act nathan 092359671 Problem Diverticulitis of large inte simon, unspecified bleeding status, unspecified complication status K57.32 Active 3136726 ALLERGIES No Information ENCOUNTERS Encounter Location Date Diagnosis [address] [id number] [place] [id number] Feb, [facility] [address] [facility] [id number] [address] [place] [id number] Oct, [facility] [address] [facility] [id number] [place] [id number] Sep, [facility] [address] [id number] [address] [id number] Sep, Dental examination Z01.20 an d Caries K02.9 [facility] [place] [address] [facility] [id number] [place] [id number] Sep, Dysthymia F34.1 and Diverticulitis K57.9 2 [facility] [address] [facility] [id number] [place] [id number] Sep, [facility] [address] [id number] [place] [id number] Aug, Essential (primary) hypertension I10 ; D yspnea on exertion R06.09 ; Obstructive sleep apnea syndrome G47.33 and Tobacco abuse Z72.0 [facility] [address] [facility] [id number] [place] [id number] Aug, BMI 45.0-49.9, adult Z68.42 and Divertic ulitis K57.92 [place] [address] [id number] [place] [id number] Jul, Lumbago with sciatica, right side M54.41 and Dysthymia F34.1 [facility] [address] [facility] [id number] [place] [id number] Jul, BMI 45.0-49.9, adult Z68.42 ; Dysthymia F34.1 ; Lumbago with sciatica, right side M54.41 and Essential (primary) hypertension I10 [facility] [address] [id number] [place] [id number] Jun, BMI 45.0-49.9, adult Z68.42 ; Essential (primary) hypertension I10 ; Dysthymia F34.1 ; Lumbago with sciatica, right side M54.41 and Mild intermittent asthma with acute exacerbation J45.21 [facility] [address] [id number] [place] [id number] Jun, [facility] [address] [facility] [id number] [address] [place] [address] Jun, Chest congestion R09.89 ; Co ugh R05 and BMI 45.0-49.9, adult Z68.42 [facility] [address] [id number] [id number] Jun, Dental examination Z01.20 [facility] [address] [facility] [id number] [place] [id number] May, Essential (primary) hypertension I10 ; L umbago with sciatica, right side M54.41 ; Anxiety F41.9 and BMI 45.0-49.9, adult Z68.42 [facility] [address] [id number][place] [id number] May, Essential (primary) hypertension I10 ; O ther chest pain R07.89 ; Dyspnea on exertion R06.09 ; Tobacco abuse Z72.0 ; Sleep apnea, unspecified type G47.30 ; BMI 45.0-49.9, adult Z68.42 and Morbid obesity E66.01 [facility] [address] [facility] [id number] [address] [place] [address] May, BMI 45.0-49.9, adult Z68.42 [facility] [address] [place] [id number] [place] [id number] May, BMI 45.0-49.9, adult Z68.42 ; Lumbago wi th sciatica, right side M54.41 ; Anxiety F41.9 and Essential (primary) hypertension I10 [facility] [address] [facility] [id number] [address] [place] [address] Apr, [facility] [address] [facility] [id number] [place] [id number] Apr, Anxiety F41.9 [facility] [address] [place] [id number] [place] [id number] Apr, Anxiety F41.9 [facility] [address] [facility] [id number] [place] [id number] Apr, [facility] [place] [id number] [id number] Apr, Dental examination Z01.20 [facility] [address] [id number] [place] [id number] Apr, Anxiety F41.9 [facility] [place] [address] [id number] [place] [id number] Apr, Anxiety F41.9 and Lumbago with sciatica, right side M54.41 [facility] [address] [id number] [place] [id number] March, Anxiety F41.9 [facility] [place] [address] [facility] [id number] [place] [id number] March, Diverticulitis of large intestine, unspe cified bleeding status, unspecified complication status K57.32 ; Anxiety F41.9 and Essential (primary) hypertension I10 [facility] [address] [facility] [id number] [place] [id number] March, RUQ abdominal pain R10.11 [facility] [address] [facility] [id number] [place] [address] Feb, Wheezing on auscultation R06 .2 [facility] [place] [address] [facility] [id number] [place] [id number] Feb, Anxiety F41.9 [facility] [place] [address] [facility] [id number] [place] [id number] Feb, [facility] [place] [address] [facility] [id number] [place] [id number] Jan, BMI 50.0-59.9, adult Z68.43 ; Anxiety F4 1.9 ; Chest pain, unspecified type R07.9 and Essential (primary) hypertension I10 [facility] [place] [id number][place] [id number] Jan, BMI 45.0-49.9, adult Z68.42 ; Morbid obe sity E66.01 ; Chest pain, non- cardiac R07.89 ; Anxiety F41.9 ; Essential (primary) hypertension I10 and Tobacco abuse Z72.0 [facility] [place] [address] [place] [address] AV [id number] [place] [id number] Jan, Essential (primary) hypertension I10 [facility] [place] [address] [id number] [place] [id number] Dec, Essential (primary) hypertension I10 ; M igraine with aura and without status migrainosus, not intractable G43.109 ; Viral syndrome B34.9 and Lumbago with sciatica, right side M54.41 [facility] [place] [address] [id number] [place] [id number] Nov, BMI 45.0-49.9, adult Z68.42 ; Migraine w ith aura and without status migrainosus, not intractable G43.109 and Essential (primary) hypertension I10 [facility] [place] [address] [id number] [place] [id number] Nov, Essential (primary) hypertension I10 [facility] [place] [address] [id number] [place] [id number] Nov, BMI 45.0-49.9, adult Z68.42 ; Essential (primary) hypertension I10 ; Anxiety F41.9 ; Lumbago with sciatica, right side M54.41 and Other chronic pain G89.29 [facility] [place] [address] [id number] [place] [id number] Nov, [facility] [place] [address] [id number] [place] [id number] Aug, RUQ abdominal pain R10.11 [facility] [place] [address] [id number] [place] [id number] Aug, Essential (primary) hypertension I10 and Anxiety F41.9 [facility] [place] [address] [id number] [place] [id number] May, Essential (primary) hypertension I10 and Anxiety F41.9 [facility] [place] [address] [id number] [place] [id number] March, Diverticulitis of large intestine, unspe cified bleeding status, unspecified complication status K57.32 [facility] [address] [facility] [id number] 100KS [place] [address] March, [facility] [place] [address] [id number] [place] [id number] March, [facility] [place] [address] [id number] [place] [id number] March, Chest wall pain R07.89 and Dysuria R30.0 [facility] [place] [address] [id number] [place] [id number] March, Anxiety F41.9 [facility] [place] [address] [id number] [place] [id number] Feb, Biliary dyskinesia K82.8 [facility] [place] [address] [id number] [place] [id number] Feb, Biliary dyskinesia K82.8 [facility] [place] [address] [id number] [place] [id number] Jan, Essential (primary) hypertension I10 and RUQ abdominal pain R10.11 [facility] [place] [address] [id number] [place] [id number] Jan, Essential (primary) hypertension I10 and Anxiety F41.9 [facility] [place] [address] [id number] [place] [id number] Dec, Essential (primary) hypertension I10 [facility] [address] [id number] [place] [id number] Nov, Migraine with aura and without status mi grainosus, not intractable G43.109 and Essential (primary) hypertension I10 [facility] [place] [address] [id number] [place] [id number] Nov, Anxiety F41.9 ; Migraine with aura and w ithout status migrainosus, not intractable G43.109 and Insomnia, unspecified type G47.00 [facility] [place] [address] [id number] [place] [id number] Oct, Migraine with aura and without status mi grainosus, not intractable G43.109 [facility] [place] [address] [facility] [id number] [place] [id number] Oct, Anxiety F41.9 and Essential (primary) hy pertension I10 [facility] [address] [place] [id number] [address] [place] [address] Oct, [facility] [address] [address] Sep, [facility] [place] [address] [facility] [id number] [place] [id number] Sep, Diverticulitis of large intestine withou t perforation or abscess without bleeding K57.32 and Anxiety F41.9 [facility] [place] [address] [facility] [id number] [place] [address], [place] [id number] Aug, Diverticulitis of large intestine withou t perforation or abscess without bleeding K57.32 [facility] [address] [place] [id number] [place] [address] Aug, [facility] [place] [address] [facility] [id number] [place] [id number] Aug, [facility] [address] [address] Aug, [facility] [place] [address] [place] [id number] [place] [id number] Aug, [facility] [place] [address] [place] [id number] [place] [id number] Jul, Ingrown left big toenail L60.0 [facility] [place] [address] [facility] [id number] [place] [id number] Jul, [facility] [place] [address] [facility] [id number] [place] [id number] Jul, Ingrowing toenail of right foot L60.0 [facility] [place] [address] [facility] [id number] [place] [id number] Apr, [facility] [place] [address] [facility] [id number] [place] [id number] Apr, RUQ abdominal pain R10.11 ; Fatty liver disease, nonalcoholic K76.0 ; Hx of hyperglycemia Z86.39 ; Elevated alanine aminotransferase (ALT) level R74.0 ; Elevated LDL cholesterol level E78.0 and Prediabetes R73.09 [facility] [address] [facility] [id number] [place] [id number] Apr, RUQ abdominal pain R10.11 ; Mild persist ent asthma without complication J45.30 ; Anxiety F41.9 and Essential (primary) hypertension I10 [facility] [address] [facility] [id number] [place] [id number] March, Wheezing R06.2 and Cough R05 [facility] [address] [facility] [id number] [place] [id number] March, [facility] [address] [facility] [id number] [place] [id number] March, [facility] [address] [facility] [id number] [place] [id number] March, Acute severe exacerbation of asthma J45. 51 ; Cough R05 and Cough headache G44.83 [facility] [address] [facility] [id number] [place] [id number] Feb, Mild intermittent asthma with acute exac erbation J45.21 and Transient insomnia F51.02 [facility] [address] [place] [id number] [place] [id number] Feb, Pigmented skin lesion of uncertain natur e L81.9 [facility] [address] [place] [id number] [place] [id number] 07 Feb, 2016 Anxiety F41.9 and Essential (primary) hy pertension I10 [facility] [address] [facility] [id number] [place] [id number] Jan, [facility] [address] [facility] [id number] [place] [id number] Jan, Routine gynecological examination Z01.41 9 and Encounter for Papanicolaou smear for cervical cancer screening Z12.4 [facility] [address] [facility] [id number] [place] [id number] 07 Jan, 2016 Essential (primary) hypertension I10 and Anxiety F41.9 [facility] [place] [address] [id number] [place] [id number] Dec, Essential (primary) hypertension I10 and Anxiety F41.9 [facility] [place] [address] [id number] [place] [id number] Nov, Essential (primary) hypertension I10 [facility] [place] [address] [id number] [id number] Aug, [facility] [place] [address] [id number] [place] [id number] Aug, CAP (community acquired pneumonia) J18.9 [facility] [place] [address] [id number] [place] [id number] Aug, CAP (community acquired pneumonia) J18.9 [facility] [place] [address] [id number] [place] [id number] Aug, CAP (community acquired pneumonia) J18.9 [facility] [place] [address] [facility] [id number] [place] [id number] Aug, CAP (community acquired pneumonia) J18.9 and Essential (primary) hypertension I10 [facility] [place] [address] [facility] [id number] [place] [id number] Aug, CAP (community acquired pneumonia) J18.9 [facility] [address] [place] [id number] [address] [place] [address] Apr, [facility] [address] [facility] [id number] [address] [place] [address] Feb, [facility] [address] [facility] [id number] [address] [place] [address] Feb, [facility] [place] [address] [facility] [id number] [place] [id number] Jan, [facility] [address] [place] [id number] [address] [place] [address] Jan, [facility] [address] [place] [id number] [address] [place] [address] Nov, [facility] [place] [address] [id number] [place] [id number] Nov, [facility] [place] [place] [facility] [address] [id number] [facility] [place] [address] Nov, [facility] [place] [address] [id number] [place] [id number] Oct, [facility] [place] [place] [facility] [address] [id number] [facility] [place] [address] Oct, [facility] [place] [address] [id number] [place] [id number] Sep, [facility] [place] [place] [facility] [address] [facility] [id number] [address] [place] [address], [place] [address] Sep, [facility] [place] [address] [id number] [place] [id number] Jun, [facility] [place] [place] [facility] [address] [facility] [id number] [address] [place] [address], [place] [address] Jun, [facility] [place] [address] [id number] [place] [id number] Jun, [facility] [address] [facility] [id number] [address] [place] [address], [place] [address] Jun, [facility] [place] [address] [id number] [place] [id number] May, [facility] [place] [place] [address] [facility] [id number] [address] [place] [address], [place] [address] May, [facility] [place] [address] [id number] [place] [id number] Dec, [facility] [address] [id number] [facility] [place] [address] Dec, [facility] [place] [address] [id number] [place] [id number] Feb, [facility] [place] [address] [id number] [place] [id number] Feb, [facility] [place] [address] [id number] [place] [id number] Feb, 2013 [facility] [place] [facility] [address] [id number] [address] [place] [address], [place] [address] 16 Feb, 2013 [facility] [place] [address] [id number] [place] [id number] 15 Feb, 2013 [facility] [place] [address] [id number] [place] [id number] 15 Feb, 2013 [facility] [address] [id number] [address] [place] [address], [place] [address] 14 Feb, 2013 [facility] [address] [id number] [address] [place] [address], [place] [address] Feb, [facility] [address] [id number] [address] [place] [address], [place] [address] Feb, [facility] [place] [address] [id number] [place] [id number] Feb, [facility] [place] [address] [id number] [place] [id number] Feb, [facility] [place] [address] [id number] [place] [id number] Jan, [facility] [place] [address] [id number] [place] [id number] Nov, [facility] [place] [address] [id number] [place] [id number] Nov, [facility] [address] [id number] [address] [place] [address] Oct, [facility] [address] [id number] [address] [place] [address] Apr, [facility] [address] [id number] [address] [place] [address] Dec, [facility] [address] [id number] [address] [place] [address], [place] [address] Nov, [facility] [address] [id number] [address] [place] [address], [place] [address] Oct, [facility] [address] [facility] [id number] [address] [place] [address] Oct, [facility] [address] [facility] [id number] [address] [place] [address] Sep, [facility] [address] [facility] [id number] [address] [place] [address] Sep, [facility] [address] [facility] [id number] [address] [place] [address] Sep, IMMUNIZATIONS No Known Immunizations SOCIAL HISTORY Never Assessed REASON FOR VISIT Cardiology f/u PLAN OF CARE Activity Details Follow Up 6 Months Reason: VITAL SIGNS Height 66 in 2018-09-22 Weight 286 lbs 2018-09-22 Heart Rate 72 bpm 2018-09-22 Respiratory Rate 20 2018-09-22 Oximetry 98 % 2018-09-22 BMI 46.16 kg/m2 2018-09-22 Blood pressure systolic 138 mmHg 2018-09-22 Blood pressure diastolic 78 mmHg 2018-09-22 MEDICATIONS Medication Instructions Dosage Frequency Start Date End Date Duration S tatus Ibuprofen 800 MG Orally Three times a day 1 tablet with food or milk as needed 8h May, Active Aspir-81 81 MG Orally Once a day 1 tablet 24h Active Nitroglycerin 0.4 MG Act nathan Atenolol 100 mg Orally Once a day 1 tablet 24h Nov, Active CompAir Nebulizer - as directed Feb, 5 d ays Active Fluoxetine HCl 40 mg Orally Once a day 1 capsule 24h Jun, Active Clonazepam 1 MG Orally Once a day prn mustr last 28 day 1-2 tablet Jun, Active Zofran ODT 8 MG Orally Twice a day 1 tablet on the tongue and al low to dissolve 12h Aug, 30 day(s) Active Albuterol Sulfate 108 (90 Base) mcg/act Inhalation every 8 h rs 2 puffs by Inhalation route every 4-6 hours as needed PRN cough or wheezing 8h May, Active Tramadol HCl 50 mg Orally 2 times a day must lasst 28 d 1 tablet a s needed Apr, Active Losartan Potassium 50 mg Orally Once a day 1.5 [...] apnea Surgical History cholecystectomy 03/24/17 Hospitalization History Diverticulitis-[facility] 08/2016 Hospitalization History Generalized anxiety disorder-[facility] 2015 Hospitalization History Diverticulitis-[facility]. Left AMA 04/06/17 Hospitalization History ER visit for migraine 08/2017 Hospitalization History ER visit for chest pain 01/2018
--- OUTSIDE RECORDS SUMMARY | 2020-03-17 14:50 | XMS REPORT ---
Author Author Fatimah ALBA Organization 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 Name Role Phone NIDIA ALBA Unavailable PROBLEMS Type Condition ICD9-CM Code ROI26-ZY Code Onset Dates Condition S tatus SNOMED Code Problem Lumbago with sciatica, right side M54.41 Active 924045974 Problem Tobacco abuse Z72.0 Active 050206 000 Problem Other chronic pain G89.29 Active 8 3851935 Problem Diverticulitis K57.92 Active 33684 6006 Problem Dysthymia F34.1 Active 37927676 Problem Sleep apnea, unspecified type G47.30 Active 63091362 Problem Morbid obesity E66.01 Active 46833 6002 Problem Obstructive sleep apnea syndrome G47.33 Active 75864304 Problem BMI 45.0-49.9, adult Z68.42 Active 611533514 Problem Anxiety F41.9 Active 07622009 Problem Elevated LDL cholesterol level E78.0 Active 412508988 Problem CAP (community acquired pneumonia) J18.9 Active 827228563 Problem Essential (primary) hypertension I10 Active 43355923 Problem Migraine with aura and without status migrainosu s, not intractable G43.109 Active 4022883 Problem Biliary dyskinesia K82.8 Active 1 72961540 Problem Diverticulitis of large inte simon without perforation or abscess without bleeding K57.32 Active 0175322 Problem RUQ abdominal pain R10.11 Active 3 97354770 Problem Insomnia, unspecified type G47.00 Act nathan 714205189 Problem Diverticulitis of large inte simon, unspecified bleeding status, unspecified complication status K57.32 Active 5259340 ALLERGIES Substance Reaction Event Type Date Status Lisinopril cough Drug Allergy Sep, Active BuSpar suicidal thoughts, increased anxiety Drug Allergy 2017 Active ENCOUNTERS Encounter Location Date Diagnosis [address] [id number] [id number] Feb, [facility] [place] [facility] [address] [id number] [address] [place] [id number] Oct, [facility] [place] [facility] [address] [id number] [address] [place] [id number] Sep, Dental examination Z01.20 an d Caries K02.9 [facility] [place] [address] [id number] [place] [id number] Sep, Dysthymia F34.1 and Diverticulitis K57.9 2 [facility] [place] [address] [id number] [place] [id number] Sep, [facility] [place] [address] [facility] [id number] [id number] Aug, Essential (primary) hypertension I10 ; D yspnea on exertion R06.09 ; Obstructive sleep apnea syndrome G47.33 and Tobacco abuse Z72.0 [facility] [place] [address] [id number] [place] [id number] Aug, BMI 45.0-49.9, adult Z68.42 and Divertic ulitis K57.92 [facility] [place] [address] [id number] [place] [id number] Jul, Lumbago with sciatica, right side M54.41 and Dysthymia F34.1 [facility] [place] [address] [id number] [place] [id number] Jul, BMI 45.0-49.9, adult Z68.42 ; Dysthymia F34.1 ; Lumbago with sciatica, right side M54.41 and Essential (primary) hypertension I10 [facility] [place] [address] [id number] [place] [id number] Jun, BMI 45.0-49.9, adult Z68.42 ; Essential (primary) hypertension I10 ; Dysthymia F34.1 ; Lumbago with sciatica, right side M54.41 and Mild intermittent asthma with acute exacerbation J45.21 [facility] [place] [address] [id number] [place] [id number] Jun, [facility] [address] [facility] [id number] 100[place] [address] Jun, Chest congestion R09.89 ; Co ugh R05 and BMI 45.0-49.9, adult Z68.[address] [facility] [address] [id number] [id number] Jun, Dental examination Z01.20 [facility] [place] [address] [id number] [place] [id number] May, Essential (primary) hypertension I10 ; L umbago with sciatica, right side M54.41 ; Anxiety F41.9 and BMI 45.0-49.9, adult Z68.42 [facility] [address] [id number][place] [id number] May, Essential (primary) hypertension I10 ; O ther chest pain R07.89 ; Dyspnea on exertion R06.09 ; Tobacco abuse Z72.0 ; Sleep apnea, unspecified type G47.30 ; BMI 45.0-49.9, adult Z68.42 and Morbid obesity E66.01 [facility] [address] [facility] [id number] [address] [place] [address] May, BMI 45.0-49.9, adult Z68.42 [facility] [address] [facility] [id number] [place] [id number] May, BMI 45.0-49.9, adult Z68.42 ; Lumbago wi th sciatica, right side M54.41 ; Anxiety F41.9 and Essential (primary) hypertension I10 [facility] [address] [facility] [id number] [address] [place] [address] Apr, [facility] [place] [address] [id number] [place] [id number] Apr, Anxiety F41.9 [facility] [address] [id number] [place] [id number] Apr, Anxiety F41.9 [facility] [address] [id number] [place] [id number] Apr, [facility] [place] [address] [facility] [address] [id number][place] [id number] Apr, Dental examination Z01.20 [facility] [address] [facility] [id number] [place] [id number] Apr, Anxiety F41.9 [facility] [address] [facility] [id number] [place] [id number] Apr, Anxiety F41.9 and Lumbago with sciatica, right side M54.41 [facility] [address] [facility] [id number] [place] [id number] March, Anxiety F41.9 [facility] [place] [address] [facility] [id number] [place] [id number] March, Diverticulitis of large intestine, unspe cified bleeding status, unspecified complication status K57.32 ; Anxiety F41.9 and Essential (primary) hypertension I10 [facility] [address] [facility] [id number] [place] [id number] March, RUQ abdominal pain R10.11 [facility] [address] [facility] [id number] 100[place] [address] Feb, Wheezing on auscultation R06 .2 [facility] [address] [facility] [id number] [place] [id number] Feb, Anxiety F41.9 [facility] [address] [facility] [id number] [place] [id number] Feb, [facility] [place] [address] [facility] [id number] [place] [id number] Jan, BMI 50.0-59.9, adult Z68.43 ; Anxiety F4 1.9 ; Chest pain, unspecified type R07.9 and Essential (primary) hypertension I10 [facility] [place] [address] [facility] [id number] [address] Jan, BMI 45.0-49.9, adult Z68.42 ; Morbid obe sity E66.01 ; Chest pain, non- cardiac R07.89 ; Anxiety F41.9 ; Essential (primary) hypertension I10 and Tobacco abuse Z72.0 [facility] [place] [id number] [facility] [id number] [place] [id number] Jan, Essential (primary) hypertension I10 [facility] [place] [address] [id number] [place] [id number] Dec, Essential (primary) hypertension I10 ; M igraine with aura and without status migrainosus, not intractable G43.109 ; Viral syndrome B34.9 and Lumbago with sciatica, right side M54.41 [facility] [place] [address] [id number] [place] [id number] Nov, BMI 45.0-49.9, adult Z68.42 ; Migraine w ith aura and without status migrainosus, not intractable G43.109 and Essential (primary) hypertension I10 [facility] [place] [address] [id number] [place] [id number] Nov, Essential (primary) hypertension I10 [facility] [place] [address] [id number] [place] [id number] Nov, BMI 45.0-49.9, adult Z68.42 ; Essential (primary) hypertension I10 ; Anxiety F41.9 ; Lumbago with sciatica, right side M54.41 and Other chronic pain G89.29 [facility] [place] [address] [id number] [place] [id number] Nov, [facility] [place] [address] [id number] [place] [id number] Aug, RUQ abdominal pain R10.11 [facility] [place] [address] [id number] [place] [id number] Aug, Essential (primary) hypertension I10 and Anxiety F41.9 [facility] [place] [address] [id number] [place] [id number] May, Essential (primary) hypertension I10 and Anxiety F41.9 [facility] [place] [address] [id number] [place] [id number] March, Diverticulitis of large intestine, unspe cified bleeding status, unspecified complication status K57.32 [facility] [address] [facility] [id number] [address] [address] March, [facility] [place] [address] [id number] [place] [id number] March, [facility] [place] [address] [id number] [place] [id number] March, Chest wall pain R07.89 and Dysuria R30.0 [facility] [place] [address] [id number] [place] [id number] March, Anxiety F41.9 [facility] [place] [address] [id number] [place] [id number] Feb, Biliary dyskinesia K82.8 [facility] [place] [address] [id number] [place] [id number] Feb, Biliary dyskinesia K82.8 [facility] [place] [address] [id number] [place] [id number] Jan, Essential (primary) hypertension I10 and RUQ abdominal pain R10.11 [facility] [place] [address] [id number] [place] [id number] Jan, Essential (primary) hypertension I10 and Anxiety F41.9 [facility] [place] [address] [id number] [place] [id number] Dec, Essential (primary) hypertension I10 [facility] [place] [address] [id number] [place] [id number] Nov, Migraine with aura and without status mi grainosus, not intractable G43.109 and Essential (primary) hypertension I10 [facility] [place] [address] [id number] [place] [id number] Nov, Anxiety F41.9 ; Migraine with aura and w ithout status migrainosus, not intractable G43.109 and Insomnia, unspecified type G47.00 [facility] [place] [address] [id number] [place] [id number] Oct, Migraine with aura and without status mi grainosus, not intractable G43.109 [facility] [place] [address] [id number] [place] [id number] Oct, Anxiety F41.9 and Essential (primary) hy pertension I10 [facility] [address] [place] [id number] [address] [place] [address] Oct, [facility] [address] [place] [id number] [address] [place] [address] Sep, [facility] [address] [facility] [id number] [place] [id number] Sep, Diverticulitis of large intestine withou t perforation or abscess without bleeding K57.32 and Anxiety F41.9 [facility] [place] [address] [facility] [id number] [place] [address], [place] [id number] Aug, Diverticulitis of large intestine withou t perforation or abscess without bleeding K57.32 [facility] [address] [place] [id number] [address] [place] [address] Aug, [facility] [address] [place] [id number] [place] [id number] Aug, [facility] [address] [place] [id number] [address] [place] [address] Aug, [facility] [address] [place] [id number] [place] [address], [place] [id number] Aug, [facility] [address] [place] [id number] [place] [address], [place] [id number] Jul, Ingrown left big toenail L60.0 [facility] [place] [address] [id number] [place] [id number] Jul, [facility] [place] [address] [id number] [place] [id number] Jul, Ingrowing toenail of right foot L60.0 [facility] [address] [id number] [place] [id number] Apr, [facility] [place] [address] [place] [id number] [place] [id number] Apr, RUQ abdominal pain R10.11 ; Fatty liver disease, nonalcoholic K76.0 ; Hx of hyperglycemia Z86.39 ; Elevated alanine aminotransferase (ALT) level R74.0 ; Elevated LDL cholesterol level E78.0 and Prediabetes R73.09 [facility] [address] [facility] [id number] [place] [id number] Apr, RUQ abdominal pain R10.11 ; Mild persist ent asthma without complication J45.30 ; Anxiety F41.9 and Essential (primary) hypertension I10 [facility] [address] [place] [id number] [place] [id number] March, Wheezing R06.2 and Cough R05 [facility] [address] [place] [id number] [place] [address], [place] [id number] March, [facility] [address] [place] [id number] [place] [id number] March, [facility] [address] [place] [id number] [place] [id number] March, Acute severe exacerbation of asthma J45. 51 ; Cough R05 and Cough headache G44.83 [facility] [address] [place] [id number] [place] [id number] 18 Feb, 2016 Mild intermittent asthma with acute exac erbation J45.21 and Transient insomnia F51.02 [facility] [address] [place] [id number] [place] [id number] 13 Feb, 2016 Pigmented skin lesion of uncertain natur e L81.9 [facility] [address] [place] [id number] [place] [id number] 07 Feb, 2016 Anxiety F41.9 and Essential (primary) hy pertension I10 [facility] [address] [facility] [id number] [place] [id number] 31 Jan, 2016 [facility] [address] [facility] [id number] [place] [id number] 23 Jan, 2016 Routine gynecological examination Z01.41 9 and Encounter for Papanicolaou smear for cervical cancer screening Z12.4 [facility] [address] [place] [id number] [place] [id number] 07 Jan, 2016 Essential (primary) hypertension I10 and Anxiety F41.9 [facility] [address] [id number] [place] [id number] Dec, Essential (primary) hypertension I10 and Anxiety F41.9 [facility] [place] [address] [id number] [place] [id number] Nov, Essential (primary) hypertension I10 [facility] [address] [id number] [id number] Aug, [facility] [place] [address] [id number] [place] [id number] Aug, CAP (community acquired pneumonia) J18.9 [facility] [place] [address] [id number] [place] [id number] Aug, CAP (community acquired pneumonia) J18.[address] [facility] [address] [id number][place] [id number] Aug, CAP (community acquired pneumonia) J18.9 [facility] [place] [address] [facility] [id number] [place] [id number] Aug, CAP (community acquired pneumonia) J18.9 and Essential (primary) hypertension I10 [facility] [place] [address] [id number] [place] [id number] Aug, CAP (community acquired pneumonia) J18.9 [facility] [address] [facility] [id number] [address] [place] [address] Apr, [facility] [address] [facility] [id number] [address] [place] [phone] Feb, [facility] [address] [facility] [id number] [address] [place] [address] Feb, [facility] [place] [address] [facility] [id number] [place] [id number] Jan, [facility] [address] [facility] [id number] [address] [place] [address] Jan, [facility] [address] [facility] [id number] [address] [place] [address] Nov, [facility] [place] [address] [id number] [place] [id number] Nov, [facility] [place] [facility] [address] [id number] [facility] [place] [address] Nov, [facility] [place] [address] [id number] [place] [id number] Oct, [facility] [place] [facility] [address] [id number] [facility] [place] [address] Oct, [facility] [place] [address] [id number] [place] [id number] Sep, [facility] [place] [facility] [address] [id number] [facility] [place] [address] Sep, [facility] [place] [address] [id number] [place] [id number] Jun, [facility] [place] [facility] [address] [facility] [id number] [address] [place] [address], [place] [address] Jun, [facility] [place] [address] [id number] [place] [id number] Jun, [facility] [place] [facility] [address] [id number] [facility] [place] [address] Jun, [facility] [place] [address] [id number] [place] [id number] May, [facility] [place] [facility] [address] [id number] [facility] [place] [address] May, [facility] [place] [address] [id number] [place] [id number] Dec, [facility] [address] [id number] [facility] [place] [address] Dec, [facility] [place] [address] [id number] [place] [id number] Feb, [facility] [place] [address] [id number] [place] [id number] Feb, [facility] [place] [address] [id number] [place] [id number] Feb, [facility] [address] [id number] [address] [place] [id number] 16 Feb, 2013 [facility] [place] [address] [id number] [place] [id number] Feb, [facility] [place] [address] [id number] [place] [id number] 15 Feb, 2013 [facility] [address] [id number] [address] [place] [id number] 14 Feb, 2013 [facility] [address] [id number] [address] [place] [address] Feb, [facility] [address] [id number] [address] [place] [address] Feb, [facility] [place] [address] [id number] [place] [id number] Feb, [facility] [place] [address] [id number] [place] [id number] Feb, [facility] [place] [address] [id number] [place] [id number] Jan, [facility] [place] [address] [id number] [place] [id number] Nov, [facility] [place] [address] [id number] [place] [id number] Nov, [facility] [address] [id number] [address] [place] [address] Oct, [facility] [address] [id number] [address] [place] [address] Apr, [facility] [address] [id number] [address] [place] [address] Dec, [facility] [address] [id number] [address] [place] [address] Nov, [facility] [address] [id number] [address] [place] [address] Oct, [facility] [address] [id number] [address] [place] [phone] Oct, [facility] [address] [facility] [id number] [address] [place] [phone] Sep, [facility] [address] [facility] [id number] [address] [place] [phone] Sep, [facility] [address] [facility] [id number] [address] [place] [phone] Sep, IMMUNIZATIONS No Known Immunizations SOCIAL HISTORY Never Assessed REASON FOR VISIT ESTEPHANIA--pain-elbrader PLAN OF CARE Activity Details Follow Up prn Reason:phuong VITAL SIGNS Height 66 in 2018-10-04 Blood pressure systolic 170 mmHg 2018-10-04 Blood pressure diastolic 93 mmHg 2018-10-04 MEDICATIONS Medication Instructions Dosage Frequency Start Date End Date Duration S tatus Aspir-81 81 MG Orally Once a day 1 tablet 24h Active Nitroglycerin 0.4 MG Act nathan Fluoxetine HCl 40 mg Orally Once a day 1 capsule 24h Jun, Active Losartan Potassium 50 mg Orally Once a day 1.5 tablet 24h Nov, 18 Active CompAir Nebulizer - as directed Feb, 5 d ays Active Albuterol Sulfate 108 (90 Base) mcg/act Inhalation every 8 h rs 2 puffs by Inhalation route every 4-6 hours as needed PRN cough or wheezing 8h May, Active Zofran ODT 8 MG Orally Twice a day 1 tablet on the tongue and al low to dissolve 12h Aug, 30 day(s) Not-Taking Tramadol HCl 50 mg Orally 2 times a day must lasst 28 d 1 tablet a s needed Apr, Active Ibuprofen 800 MG Orally Three times a day 1 tablet with food or milk as needed 8h May, Active Atenolol 100 mg Orally Once a day 1 tablet 24h Nov, Active Clonazepam 1 MG Orally Once a day prn mustr last 28 day 1-2 tablet Jun, Active RESULTS No Results PROCEDURES Procedure Date Ordered Result Body Site LTD ORAL EVALUATION - PROBLEM FOCUS Oct 04, 2018 INTRAORL-PERIAPICAL 1 FILM 13420 Oct 04, 2018 EXTRAC ERUPTED TOOTH/EXPOSED ROOT Oct 04, 2018 BITEWING - SINGLE FILM Oct 04, 2018 INSTRUCTIONS MEDICATIONS ADMINISTERED No Known Medications MEDICAL (GENERAL) HISTORY Type Description Date Medical History hypertension Medical History asthma Medical History CT 08/2016 ED-sigmoid divert iculitis, hepatic steatosis, stable bilateral low density adrenal adenomas Medical History GERD Medical History IBSD Medical History sleep apnea Surgical History cholecystectomy 03/24/17 Hospitalization History Diverticulitis-[facility] 08/2016 Hospitalization History Generalized anxiety disorder-[facility] 2015 Hospitalization History [facility]iculitis[facility]. Left AMA 04/06/17 Hospitalization History ER visit for migraine 08/2017 Hospitalization History ER visit for chest pain 01/2018
--- OUTSIDE RECORDS SUMMARY | 2020-03-17 14:50 | XMS REPORT ---
Author Author Fatimah FRANKS [facility] Address [address] [place] [address] Care Team Providers Care Accessioner Name Role Phone NUZHAT FRANKS Unavailable PROBLEMS Type Condition ICD9-CM Code NZV64-DY Code Onset Dates Condition S tatus SNOMED Code Problem Lumbago with sciatica, right side M54.41 Active 128717777 Problem Tobacco abuse Z72.0 Active 495191 000 Problem Other chronic pain G89.29 Active 8 1924239 Problem Diverticulitis K57.92 Active 87335 6006 Problem Dysthymia F34.1 Active 54288573 Problem Sleep apnea, unspecified type G47.30 Active 03310259 Problem Morbid obesity E66.01 Active 59268 6002 Problem Obstructive sleep apnea syndrome G47.33 Active 75645994 Problem BMI 45.0-49.9, adult Z68.42 Active 990589522 Problem Anxiety F41.9 Active 53508389 Problem Elevated LDL cholesterol level E78.0 Active 994214474 Problem CAP (community acquired pneumonia) J18.9 Active 738048140 Problem Essential (primary) hypertension I10 Active 09085694 Problem Migraine with aura and without status migrainosu s, not intractable G43.109 Active 2715214 Problem Biliary dyskinesia K82.8 Active 1 44210254 Problem Diverticulitis of large inte simon without perforation or abscess without bleeding K57.32 Active 8509379 Problem RUQ abdominal pain R10.11 Active 3 10049526 Problem Insomnia, unspecified type G47.00 Act nathan 613019066 Problem Diverticulitis of large inte simon, unspecified bleeding status, unspecified complication status K57.32 Active 1793446 ALLERGIES No Information ENCOUNTERS Encounter Location Date Diagnosis [address] [id number] [place] [id number] Feb, [place] [id number] [facility] [id number] [place] [id number] Oct, [facility] [address] [id number] [place] [id number] Sep, [facility] [place] [address] [facility] [id number] [place] [id number] Sep, [facility] [place] [address] [facility] [id number] [place] [id number] Sep, [facility] [place] [address] [facility] [address] [id number] [id number] Aug, Essential (primary) hypertension I10 ; D yspnea on exertion R06.09 ; Obstructive sleep apnea syndrome G47.33 and Tobacco abuse Z72.0 [facility] [id number] [place] [id number] Aug, BMI 45.0-49.9, adult Z68.42 and Divertic ulitis K57.92 [facility] [address] [place] [id number] [place] [address], [place] [id number] Jul, Lumbago with sciatica, right side M54.41 and Dysthymia F34.1 [facility] [id number] [place] [id number] Jul, BMI 45.0-49.9, adult Z68.42 ; Dysthymia F34.1 ; Lumbago with sciatica, right side M54.41 and Essential (primary) hypertension I10 [facility] [id number] [place] [id number] Jun, BMI 45.0-49.9, adult Z68.42 ; Essential (primary) hypertension I10 ; Dysthymia F34.1 ; Lumbago with sciatica, right side M54.41 and Mild intermittent asthma with acute exacerbation J45.21 [facility] [id number] [place] [id number] Jun, [facility] [address] [id number] [address] [address] Jun, Chest congestion R09.89 ; Co ugh R05 and BMI 45.0-49.9, adult Z68.42 [facility] [address] [id number] [place] [id number] Jun, Dental examination Z01.20 [facility] [place] [address] [id number] [place] [id number] May, Essential (primary) hypertension I10 ; L umbago with sciatica, right side M54.41 ; Anxiety F41.9 and BMI 45.0-49.9, adult Z68.42 [facility] [address] [id number] [id number] May, Essential (primary) hypertension I10 ; O ther chest pain R07.89 ; Dyspnea on exertion R06.09 ; Tobacco abuse Z72.0 ; Sleep apnea, unspecified type G47.30 ; BMI 45.0-49.9, adult Z68.42 and Morbid obesity E66.01 [facility] [address] [facility] [id number] [address] [place] [address] May, BMI 45.0-49.9, adult Z68.42 [facility] [place] [address] [id number] [place] [id number] May, BMI 45.0-49.9, adult Z68.42 ; Lumbago wi th sciatica, right side M54.41 ; Anxiety F41.9 and Essential (primary) hypertension I10 [facility] [address] [facility] [id number] [place] [address] Apr, [facility] [place] [address] [id number] [place] [id number] Apr, Anxiety F41.9 [facility] [place] [address] [id number] [place] [id number] Apr, Anxiety F41.9 [facility] [place] [address] [id number] [place] [id number] Apr, [facility] [address] [id number] [place] [id number] Apr, Dental examination Z01.20 [facility] [place] [address] [id number] [place] [id number] Apr, Anxiety F41.9 [facility] [place] [address] [id number] [place] [id number] Apr, Anxiety F41.9 and Lumbago with sciatica, right side M54.41 [facility] [place] [address] [id number] [place] [id number] March, Anxiety F41.9 [facility] [place] [address] [id number] [place] [id number] March, Diverticulitis of large intestine, unspe cified bleeding status, unspecified complication status K57.32 ; Anxiety F41.9 and Essential (primary) hypertension I10 [facility] [place] [address] [facility] [id number] [place] [id number] March, RUQ abdominal pain R10.11 [facility] [address] [facility] [id number] [address] [address] Feb, Wheezing on auscultation R06 .2 [facility] [place] [address] [facility] [id number] [place] [id number] Feb, Anxiety F41.9 [facility] [place] [address] [facility] [id number] [place] [id number] Feb, [facility] [place] [address] [facility] [id number] [place] [id number] Jan, BMI 50.0-59.9, adult Z68.43 ; Anxiety F4 1.9 ; Chest pain, unspecified type R07.9 and Essential (primary) hypertension I10 [facility] [address] [id number] [id number] Jan, BMI 45.0-49.9, adult Z68.42 ; Morbid obe sity E66.01 ; Chest pain, non- cardiac R07.89 ; Anxiety F41.9 ; Essential (primary) hypertension I10 and Tobacco abuse Z72.0 [facility] [address] [id number] [id number] Jan, Essential (primary) hypertension I10 [facility] [place] [address] [id number] [place] [id number] Dec, Essential (primary) hypertension I10 ; M igraine with aura and without status migrainosus, not intractable G43.109 ; Viral syndrome B34.9 and Lumbago with sciatica, right side M54.41 [facility] [place] [address] [id number] [place] [id number] Nov, BMI 45.0-49.9, adult Z68.42 ; Migraine w ith aura and without status migrainosus, not intractable G43.109 and Essential (primary) hypertension I10 [facility] [place] [address] [id number] [place] [id number] Nov, Essential (primary) hypertension I10 [facility] [place] [address] [id number] [place] [id number] Nov, BMI 45.0-49.9, adult Z68.42 ; Essential (primary) hypertension I10 ; Anxiety F41.9 ; Lumbago with sciatica, right side M54.41 and Other chronic pain G89.29 [facility] [place] [address] [id number] [place] [id number] Nov, [facility] [place] [address] [id number] [place] [id number] Aug, RUQ abdominal pain R10.11 [facility] [place] [address] [id number] [place] [id number] Aug, Essential (primary) hypertension I10 and Anxiety F41.9 [facility] [place] [address] [id number] [place] [id number] May, Essential (primary) hypertension I10 and Anxiety F41.9 [facility] [place] [address] [id number] [place] [id number] March, Diverticulitis of large intestine, unspe cified bleeding status, unspecified complication status K57.32 [facility] [address] [facility] [id number] [address] [address] March, [facility] [place] [address] [id number] [place] [id number] March, [facility] [place] [address] [id number] [place] [id number] March, Chest wall pain R07.89 and Dysuria R30.0 [facility] [place] [address] [id number] [place] [id number] March, Anxiety F41.9 [facility] [place] [address] [id number] [place] [id number] Feb, Biliary dyskinesia K82.8 [facility] [place] [address] [id number] [place] [id number] Feb, Biliary dyskinesia K82.8 [facility] [place] [address] [id number] [place] [id number] Jan, Essential (primary) hypertension I10 and RUQ abdominal pain R10.11 [facility] [place] [address] [id number] [place] [id number] Jan, Essential (primary) hypertension I10 and Anxiety F41.9 [facility] [place] [address] [id number] [place] [id number] Dec, Essential (primary) hypertension I10 [facility] [place] [address] [id number] [place] [id number] Nov, Migraine with aura and without status mi grainosus, not intractable G43.109 and Essential (primary) hypertension I10 [facility] [place] [address] [id number] [place] [id number] Nov, Anxiety F41.9 ; Migraine with aura and w ithout status migrainosus, not intractable G43.109 and Insomnia, unspecified type G47.00 [facility] [place] [address] [id number] [place] [id number] Oct, Migraine with aura and without status mi grainosus, not intractable G43.109 [facility] [place] [address] [id number] [place] [id number] Oct, Anxiety F41.9 and Essential (primary) hy pertension I10 [facility] [address] [place] [id number] [place] [address] Oct, [facility] [address] [address] Sep, [facility] [place] [address] [place] [id number] [place] [address], [place] [id number] Sep, Diverticulitis of large intestine withou t perforation or abscess without bleeding K57.32 and Anxiety F41.9 [facility] [place] [address] [place] [id number] [place] [address], [place] [id number] Aug, Diverticulitis of large intestine withou t perforation or abscess without bleeding K57.32 [facility] [address] [address] Aug, [facility] [place] [address] [place] [id number] [place] [address], [place] [id number] Aug, [facility] [address] [place] [id number] [place] [address] Aug, [facility] [place] [address] [id number] [place] [id number] Aug, [facility] [place] [address] [id number] [place] [id number] Jul, Ingrown left big toenail L60.0 [facility] [place] [id number] [place] [id number] Jul, [facility] [place] [address] [place] [id number] [place] [address], [place] [id number] Jul, Ingrowing toenail of right foot L60.0 [facility] [place] [address] [id number] [place] [id number] Apr, [facility] [place] [address] [id number] [place] [id number] Apr, RUQ abdominal pain R10.11 ; Fatty liver disease, nonalcoholic K76.0 ; Hx of hyperglycemia Z86.39 ; Elevated alanine aminotransferase (ALT) level R74.0 ; Elevated LDL cholesterol level E78.0 and Prediabetes R73.09 [facility] [place] [address] [id number] [place] [id number] Apr, RUQ abdominal pain R10.11 ; Mild persist ent asthma without complication J45.30 ; Anxiety F41.9 and Essential (primary) hypertension I10 [facility] [address] [facility] [id number] [place] [id number] March, Wheezing R06.2 and Cough R05 [facility] [address] [facility] [id number] [place] [id number] March, [facility] [address] [place] [id number] [place] [id number] March, [facility] [address] [facility] [id number] [place] [id number] March, Acute severe exacerbation of asthma J45. 51 ; Cough R05 and Cough headache G44.83 [facility] [address] [facility] [id number] [place] [id number] Feb, Mild intermittent asthma with acute exac erbation J45.21 and Transient insomnia F51.02 [facility] [address] [place] [id number] [place] [id number] Feb, Pigmented skin lesion of uncertain natur e L81.9 [facility] [address] [place] [id number] [place] [id number] Feb, Anxiety F41.9 and Essential (primary) hy pertension I10 [facility] [address] [place] [id number] [place] [id number] Jan, [facility] [address] [place] [id number] [place] [id number] Jan, Routine gynecological examination Z01.41 9 and Encounter for Papanicolaou smear for cervical cancer screening Z12.4 [facility] [address] [facility] [id number] [place] [id number] 07 Jan, 2016 Essential (primary) hypertension I10 and Anxiety F41.9 [facility] [address] [facility] [id number] [place] [id number] 10 Dec, 2015 Essential (primary) hypertension I10 and Anxiety F41.9 [facility] [address] [place] [id number] [place] [id number] Nov, Essential (primary) hypertension I[address] [facility] [address] [id number] [id number] Aug, [facility] [place] [address] [id number] [place] [id number] Aug, CAP (community acquired pneumonia) J18.9 [facility] [place] [address] [id number] [place] [id number] Aug, CAP (community acquired pneumonia) J18.[address] [facility] [address] [id number][place] [id number] Aug, CAP (community acquired pneumonia) J18.9 [facility] [place] [address] [facility] [id number] [place] [id number] Aug, CAP (community acquired pneumonia) J18.9 and Essential (primary) hypertension I10 [facility] [place] [address] [facility] [id number] [place] [id number] Aug, CAP (community acquired pneumonia) J18.9 [facility] [address] [facility] [id number] [address] [place] [address] Apr, [facility] [address] [facility] [id number] [address] [place] [address] Feb, [facility] [address] [facility] [id number] [address] [place] [address] Feb, [facility] [place] [address] [facility] [id number] [place] [id number] Jan, [facility] [address] [facility] [id number] [address] [place] [address] Jan, [facility] [address] [facility] [id number] [address] [place] [address] Nov, [facility] [place] [address] [facility] [id number] [place] [id number] Nov, [facility] [address] [facility] [id number] [address] [place] [address] Nov, [facility] [place] [address] [id number] [place] [id number] Oct, [facility] [address] [id number] 100[facility] [place] [address] Oct, [facility] [place] [address] [id number] [place] [id number] Sep, [facility] [address] [id number] 100[facility] [place] [address] Sep, [facility] [place] [address] [id number] [place] [id number] Jun, [facility] [address] [id number] [address] [place] [address], [place] [address] Jun, [facility] [place] [address] [id number] [place] [id number] Jun, [facility] [address] [facility] [id number] [address] [place] [address], [place] [address] Jun, [facility] [place] [address] [id number] [place] [id number] May, [facility] [address] [id number] [address] [place] [address], [place] [address] May, [facility] [place] [address] [id number] [place] [id number] Dec, [facility] [address] [id number] [address] [place] [address], [place] [address] Dec, [facility] [place] [address] [id number] [place] [id number] Feb, [facility] [place] [address] [id number] [place] [id number] Feb, [facility] [place] [address] [id number] [place] [id number] Feb, [facility] [address] [id number] 100[facility] [place] [address] Feb, [facility] [place] [address] [id number] [place] [id number] 15 Feb, 2013 [facility] [place] [address] [id number] [place] [id number] 15 Feb, 2013 [facility] [address] [id number] [address] [place] [address] 14 Feb, 2013 [facility] [address] [id number] [address] [place] [address] 13 Feb, 2013 [facility] [address] [id number] [address] [place] [address] 12 Feb, 2013 [facility] [place] [address] [id number] [place] [id number] Feb, [facility] [place] [address] [id number] [place] [id number] Feb, [facility] [place] [address] [id number] [place] [id number] Jan, [facility] [place] [address] [id number] [place] [id number] Nov, [facility] [place] [address] [id number] [place] [id number] Nov, [facility] [address] [id number] [address] [place] [address] Oct, [facility] [address] [address] [facility] [id number] [address] [place] [address] Apr, [facility] [address] [id number] [address] [place] [id number] 16 Dec, 2009 [facility] [address] [id number] [address] [place] [address] Nov, [facility] [address] [id number] [address] [place] [id number] Oct, [facility] [address] [facility] [id number] [address] [place] [address] Oct, [facility] [address] [facility] [id number] [address] [place] [address] Sep, [facility] [address] [facility] [id number] [address] [place] [address] Sep, [facility] [address] [facility] [id number] [address] [place] [address] Sep, IMMUNIZATIONS No Known Immunizations SOCIAL HISTORY Never Assessed REASON FOR VISIT PLAN OF CARE VITAL SIGNS MEDICATIONS Unknown [...] apnea Surgical History cholecystectomy 03/24/17 Hospitalization History Diverticulitis-[facility] 08/2016 Hospitalization History Generalized anxiety disorder-[facility] 2015 Hospitalization History Diverticulitis-[facility]. Left AMA 04/06/17 Hospitalization History ER visit for migraine 08/2017 Hospitalization History ER visit for chest pain 01/2018
--- OUTSIDE RECORDS SUMMARY | 2020-03-17 14:50 | XMS REPORT ---
Author Author Fatimah FRANKS [facility] Address [address] [place] [address] Care Team Providers Care Advance Agent Name Role Phone NUZHAT FRANKS Unavailable PROBLEMS Type Condition ICD9-CM Code [id number] Code Onset Dates Condition S tatus SNOMED Code Problem Lumbago with sciatica, right side M54.41 Active 268754955 Problem Tobacco abuse Z72.0 Active 720485 000 Problem Other chronic pain G89.29 Active 8 2052684 Problem Diverticulitis K57.92 Active 80611 6006 Problem Dysthymia F34.1 Active 49530694 Problem Sleep apnea, unspecified type G47.30 Active 50551663 Problem Morbid obesity E66.01 Active 13543 6002 Problem Obstructive sleep apnea syndrome G47.33 Active 40029677 Problem BMI 45.0-49.9, adult Z68.42 Active 544449739 Problem Anxiety F41.9 Active 76667024 Problem Elevated LDL cholesterol level E78.0 Active 391540166 Problem CAP (community acquired pneumonia) J18.9 Active 249066084 Problem Essential (primary) hypertension I10 Active 06412063 Problem Migraine with aura and without status migrainosu s, not intractable G43.109 Active 2670313 Problem Biliary dyskinesia K82.8 Active 1 10978673 Problem Diverticulitis of large inte simon without perforation or abscess without bleeding K57.32 Active 3020392 Problem RUQ abdominal pain R10.11 Active 3 61276228 Problem Insomnia, unspecified type G47.00 Act nathan 313377330 Problem Diverticulitis of large inte simon, unspecified bleeding status, unspecified complication status K57.32 Active 1184777 ALLERGIES No Information ENCOUNTERS Encounter Location Date Diagnosis [address] [id number] [place] [id number] Feb, [place] [address] [facility] [id number] [place] [id number] Oct, [facility] [address] [facility] [id number] [place] [id number] Sep, [facility] [address] [id number] [place] [id number] Sep, Dental examination Z01.20 an d Caries K02.9 [facility] [address] [facility] [id number] [place] [id number] Sep, Dysthymia F34.1 and Diverticulitis K57.9 2 [facility] [address] [facility] [id number] [place] [id number] Sep, [address] [id number][place] [address] Aug, Essential (primary) hypertension I10 ; D yspnea on exertion R06.09 ; Obstructive sleep apnea syndrome G47.33 and Tobacco abuse Z72.0 [facility] [address] [facility] [id number] [place] [id number] Aug, BMI 45.0-49.9, adult Z68.42 and Divertic ulitis K57.92 [facility] [id number] [place] [id number] Jul, Lumbago with sciatica, right side M54.41 and Dysthymia F34.1 [facility] [address] [facility] [id number] [place] [id number] Jul, BMI 45.0-49.9, adult Z68.42 ; Dysthymia F34.1 ; Lumbago with sciatica, right side M54.41 and Essential (primary) hypertension I10 [facility] [address] [id number] [place] [id number] Jun, BMI 45.0-49.9, adult Z68.42 ; Essential (primary) hypertension I10 ; Dysthymia F34.1 ; Lumbago with sciatica, right side M54.41 and Mild intermittent asthma with acute exacerbation J45.21 [facility] [address] [id number] [place] [id number] Jun, [facility] [address] [facility] [id number] [place] [address] Jun, Chest congestion R09.89 ; Co ugh R05 and BMI 45.0-49.9, adult Z68.42 [facility] [address] [id number][place] [id number] Jun, Dental examination Z01.20 [facility] [address] [id number] [place] [id number] May, Essential (primary) hypertension I10 ; L umbago with sciatica, right side M54.41 ; Anxiety F41.9 and BMI 45.0-49.9, adult Z68.42 [facility] [address] [facility] [address] [address] [id number][place] [id number] May, Essential (primary) hypertension I10 ; O ther chest pain R07.89 ; Dyspnea on exertion R06.09 ; Tobacco abuse Z72.0 ; Sleep apnea, unspecified type G47.30 ; BMI 45.0-49.9, adult Z68.42 and Morbid obesity E66.01 [facility] [address] [facility] [id number] [address] [place] [address] May, BMI 45.0-49.9, adult Z68.42 [facility] [address] [facility] [id number] [place] [id number] May, BMI 45.0-49.9, adult Z68.42 ; Lumbago wi th sciatica, right side M54.41 ; Anxiety F41.9 and Essential (primary) hypertension I10 [facility] [address] [facility] [id number] [address] [place] [address] Apr, [facility] [address] [id number] [place] [id number] Apr, Anxiety F41.9 [facility] [address] [id number] [place] [id number] Apr, Anxiety F41.9 [facility] [address] [id number] [place] [id number] Apr, [facility] [place] [address] [facility] [address] [id number][place] [id number] Apr, Dental examination Z01.20 [facility] [place] [address] [id number] [place] [id number] 18 Apr, 2018 Anxiety F41.9 [facility] [place] [address] [facility] [id number] [place] [id number] Apr, Anxiety F41.9 and Lumbago with sciatica, right side M54.41 [facility] [place] [address] [facility] [id number] [place] [id number] March, Anxiety F41.9 [facility] [place] [address] [facility] [id number] [place] [id number] March, Diverticulitis of large intestine, unspe cified bleeding status, unspecified complication status K57.32 ; Anxiety F41.9 and Essential (primary) hypertension I10 [facility] [place] [address] [facility] [id number] [place] [id number] March, RUQ abdominal pain R10.11 [facility] [address] [facility] [id number] [address] [address] Feb, Wheezing on auscultation R06 .2 [facility] [place] [address] [facility] [id number] [place] [id number] Feb, Anxiety F41.9 [facility] [address] [facility] [id number] [place] [id number] Feb, [facility] [place] [address] [facility] [id number] [place] [id number] Jan, BMI 50.0-59.9, adult Z68.43 ; Anxiety F4 1.9 ; Chest pain, unspecified type R07.9 and Essential (primary) hypertension I10 [facility] [place] [id number][place] [address] Jan, BMI 45.0-49.9, adult Z68.42 ; Morbid obe sity E66.01 ; Chest pain, non- cardiac R07.89 ; Anxiety F41.9 ; Essential (primary) hypertension I10 and Tobacco abuse Z72.0 [facility] [place] [facility] [facility] [address] [id number] [place] [id number] Jan, Essential (primary) hypertension I10 [facility] [place] [address] [id number] [place] [id number] Dec, Essential (primary) hypertension I10 ; M igraine with aura and without status migrainosus, not intractable G43.109 ; Viral syndrome B34.9 and Lumbago with sciatica, right side M54.41 [facility] [place] [address] [id number] [place] [id number] Nov, BMI 45.0-49.9, adult Z68.42 ; Migraine w ith aura and without status migrainosus, not intractable G43.109 and Essential (primary) hypertension I10 [facility] [place] [address] [id number] [place] [id number] Nov, Essential (primary) hypertension I10 [facility] [place] [address] [id number] [place] [id number] Nov, BMI 45.0-49.9, adult Z68.42 ; Essential (primary) hypertension I10 ; Anxiety F41.9 ; Lumbago with sciatica, right side M54.41 and Other chronic pain G89.29 [facility] [place] [address] [id number] [place] [id number] Nov, [facility] [place] [address] [id number] [place] [id number] Aug, RUQ abdominal pain R10.11 [facility] [place] [address] [id number] [place] [id number] Aug, Essential (primary) hypertension I10 and Anxiety F41.9 [facility] [place] [address] [id number] [place] [id number] May, Essential (primary) hypertension I10 and Anxiety F41.9 [facility] [place] [address] [id number] [place] [id number] March, Diverticulitis of large intestine, unspe cified bleeding status, unspecified complication status K57.32 [facility] [address] [facility] [id number] [address] [address] March, [facility] [place] [address] [id number] [place] [id number] March, [facility] [place] [address] [id number] [place] [id number] March, Chest wall pain R07.89 and Dysuria R30.0 [facility] [place] [address] [id number] [place] [id number] March, Anxiety F41.9 [facility] [place] [address] [id number] [place] [id number] Feb, Biliary dyskinesia K82.8 [facility] [place] [address] [facility] [id number] [place] [id number] Feb, Biliary dyskinesia K82.8 [facility] [place] [address] [id number] [place] [id number] Jan, Essential (primary) hypertension I10 and RUQ abdominal pain R10.11 [facility] [place] [address] [id number] [place] [id number] Jan, Essential (primary) hypertension I10 and Anxiety F41.9 [facility] [place] [address] [id number] [place] [id number] Dec, Essential (primary) hypertension I10 [facility] [place] [address] [facility] [id number] [place] [id number] Nov, Migraine with aura and without status mi grainosus, not intractable G43.109 and Essential (primary) hypertension I10 [facility] [place] [address] [id number] [place] [id number] Nov, Anxiety F41.9 ; Migraine with aura and w ithout status migrainosus, not intractable G43.109 and Insomnia, unspecified type G47.00 [facility] [place] [address] [facility] [id number] [place] [id number] Oct, Migraine with aura and without status mi grainosus, not intractable G43.109 [facility] [place] [address] [facility] [id number] [place] [id number] Oct, Anxiety F41.9 and Essential (primary) hy pertension I10 [facility] [address] [facility] [id number] [address] [place] [address] Oct, [facility] [address] [place] [id number] [address] [place] [address] Sep, [facility] [place] [address] [facility] [id number] [place] [id number] Sep, Diverticulitis of large intestine withou t perforation or abscess without bleeding K57.32 and Anxiety F41.9 [facility] [place] [address] [facility] [id number] [place] [address], [place] [id number] Aug, Diverticulitis of large intestine withou t perforation or abscess without bleeding K57.32 [facility] [address] [place] [id number] [address] [place] [address] Aug, [facility] [address] [facility] [id number] [place] [id number] Aug, [facility] [address] [facility] [id number] [place] [address] Aug, [facility] [place] [address] [place] [id number] [place] [id number] Aug, [facility] [place] [address] [place] [id number] [place] [id number] Jul, Ingrown left big toenail L60.0 [facility] [place] [address] [facility] [id number] [place] [id number] Jul, [facility] [place] [address] [facility] [id number] [place] [id number] Jul, Ingrowing toenail of right foot L60.0 [facility] [place] [address] [facility] [id number] [place] [id number] Apr, [facility] [place] [address] [facility] [id number] [place] [id number] Apr, RUQ abdominal pain R10.11 ; Fatty liver disease, nonalcoholic K76.0 ; Hx of hyperglycemia Z86.39 ; Elevated alanine aminotransferase (ALT) level R74.0 ; Elevated LDL cholesterol level E78.0 and Prediabetes R73.09 [facility] [address] [facility] [id number] [place] [id number] Apr, RUQ abdominal pain R10.11 ; Mild persist ent asthma without complication J45.30 ; Anxiety F41.9 and Essential (primary) hypertension I10 [facility] [address] [facility] [id number] [place] [id number] March, Wheezing R06.2 and Cough R05 [facility] [address] [facility] [id number] [place] [id number] March, [facility] [address] [facility] [id number] [place] [id number] March, [facility] [address] [facility] [id number] [place] [id number] March, Acute severe exacerbation of asthma J45. 51 ; Cough R05 and Cough headache G44.83 [facility] [address] [facility] [id number] [place] [id number] 18 Feb, 2016 Mild intermittent asthma with acute exac erbation J45.21 and Transient insomnia F51.02 [facility] [address] [place] [id number] [place] [id number] Feb, Pigmented skin lesion of uncertain natur e L81.9 [facility] [address] [facility] [id number] [place] [id number] 07 Feb, 2016 Anxiety F41.9 and Essential (primary) hy pertension I10 [facility] [address] [facility] [id number] [place] [id number] Jan, [facility] [address] [facility] [id number] [place] [id number] 23 Jan, 2016 Routine gynecological examination Z01.41 9 and Encounter for Papanicolaou smear for cervical cancer screening Z12.4 [facility] [address] [facility] [id number] [place] [id number] 07 Jan, 2016 Essential (primary) hypertension I10 and Anxiety F41.9 [facility] [place] [address] [id number] [place] [id number] Dec, Essential (primary) hypertension I10 and Anxiety F41.9 [facility] [place] [address] [id number] [place] [id number] Nov, Essential (primary) hypertension I10 [facility] [address] [id number][place] [id number] Aug, [facility] [place] [address] [id number] [place] [id number] Aug, CAP (community acquired pneumonia) J18.9 [facility] [place] [address] [id number] [place] [id number] Aug, CAP (community acquired pneumonia) J18.9 [facility] [address] [id number], [place] [id number] Aug, CAP (community acquired pneumonia) J18.9 [facility] [place] [address] [facility] [id number] [place] [id number] Aug, CAP (community acquired pneumonia) J18.9 and Essential (primary) hypertension I10 [facility] [place] [address] [facility] [id number] [place] [id number] Aug, CAP (community acquired pneumonia) J18.9 [facility] [address] [place] [id number] [address] [place] [address] Apr, [facility] [address] [facility] [id number] [address] [place] [address] Feb, [facility] [address] [facility] [id number] [address] [place] [address] Feb, [facility] [place] [address] [facility] [id number] [place] [id number] Jan, [facility] [address] [facility] [id number] [address] [place] [address] Jan, [facility] [address] [facility] [id number] [address] [place] [address] Nov, [facility] [place] [address] [id number] [place] [id number] Nov, [facility] [address] [id number] [facility] [place] [address] Nov, [facility] [place] [address] [id number] [place] [id number] Oct, [facility] [address] [id number] [facility] [place] [address] Oct, [facility] [place] [address] [id number] [place] [id number] Sep, [facility] [address] [id number] [address] [place] [address], [place] [address] Sep, [facility] [place] [address] [id number] [place] [id number] Jun, [facility] [address] [facility] [id number] [address] [place] [address] Jun, [facility] [place] [address] [id number] [place] [id number] Jun, [facility] [address] [id number] [address] [place] [address], [place] [address] Jun, [facility] [place] [address] [id number] [place] [id number] May, [facility] [address] [id number] [address] [place] [address], [place] [address] May, [facility] [place] [address] [id number] [place] [id number] Dec, [facility] [address] [id number] [facility] [place] [address] Dec, [facility] [place] [address] [id number] [place] [id number] Feb, [facility] [place] [address] [id number] [place] [id number] Feb, [facility] [place] [address] [id number] [place] [id number] Feb, [facility] [address] [id number] [address] [place] [address], [place] [address] 16 Feb, 2013 [facility] [place] [address] [id number] [place] [id number] 15 Feb, 2013 [facility] [place] [address] [id number] [place] [id number] 15 Feb, 2013 [facility] [address] [id number] [address] [place] [address], [place] [address] 14 Feb, 2013 [facility] [address] [id number] [address] [place] [address], [place] [address] Feb, [facility] [address] [id number] [address] [place] [address], [place] [address] Feb, [facility] [place] [address] [id number] [place] [id number] Feb, [facility] [place] [address] [id number] [place] [id number] Feb, [facility] [place] [address] [id number] [place] [id number] Jan, [facility] [place] [address] [id number] [place] [id number] Nov, [facility] [place] [address] [id number] [place] [id number] Nov, [facility] [address] [id number] [address] [place] [address] Oct, [facility] [address] [id number] [address] [place] [address] Apr, [facility] [address] [id number] [address] [place] [address], [place] [address] Dec, [facility] [address] [id number] [address] [place] [address], [place] [address] Nov, [facility] [address] [id number] [address] [place] [address], [place] [address] Oct, [facility] [address] [facility] [id number] [address] [place] [address] Oct, [facility] [address] [facility] [id number] [address] [place] [address] Sep, [facility] [address] [facility] [id number] [address] [place] [address] Sep, [facility] [address] [facility] [id number] [address] [place] [address] Sep, IMMUNIZATIONS No Known Immunizations SOCIAL HISTORY Never Assessed REASON FOR VISIT FYI PLAN OF CARE VITAL SIGNS MEDICATIONS Unknown [...] Surgical History cholecystectomy 03/24/17 Hospitalization History Diverticulitis-[facility] 08/2016 Hospitalization History Generalized anxiety disorder-H 2015 Hospitalization History Diverticulitis-[facility]. Left AMA 04/06/17 Hospitalization History ER visit for migraine 08/2017 Hospitalization History ER visit for chest pain 01/2018
--- OUTSIDE RECORDS SUMMARY | 2020-03-17 14:50 | XMS REPORT ---
Author Author Fatimah FRANKS [facility] Address [address] [place] [address] Care Team Providers Care Finished Yarn Examiner Name Role Phone NUZHAT FRANKS Unavailable PROBLEMS Type Condition ICD9-CM Code QIH17-WI Code Onset Dates Condition S tatus SNOMED Code Problem Lumbago with sciatica, right side M54.41 Active 697248510 Problem Tobacco abuse Z72.0 Active 613601 000 Problem Other chronic pain G89.29 Active 8 7389634 Problem Diverticulitis K57.92 Active 29239 6006 Problem Dysthymia F34.1 Active 25217588 Problem Sleep apnea, unspecified type G47.30 Active 64191991 Problem Morbid obesity E66.01 Active 37985 6002 Problem Obstructive sleep apnea syndrome G47.33 Active 49960151 Problem BMI 45.0-49.9, adult Z68.42 Active 526350238 Problem Anxiety F41.9 Active 40196656 Problem Elevated LDL cholesterol level E78.0 Active 835116506 Problem CAP (community acquired pneumonia) J18.9 Active 368457156 Problem Essential (primary) hypertension I10 Active 57893323 Problem Migraine with aura and without status migrainosu s, not intractable G43.109 Active 7370310 Problem Biliary dyskinesia K82.8 Active 1 20691267 Problem Diverticulitis of large inte simon without perforation or abscess without bleeding K57.32 Active 1790568 Problem RUQ abdominal pain R10.11 Active 3 45674717 Problem Insomnia, unspecified type G47.00 Act nathan 690859317 Problem Diverticulitis of large inte simon, unspecified bleeding status, unspecified complication status K57.32 Active 1642519 ALLERGIES No Information ENCOUNTERS Encounter Location Date Diagnosis [address] [id number] [place] [id number] Feb, [place] [address] [facility] [id number] [place] [id number] Oct, [facility] [address] [facility] [id number] [place] [id number] Sep, Dental examination Z01.20 an d Caries K02.9 [facility] [address] [facility] [id number] [place] [id number] Sep, Dysthymia F34.1 and Diverticulitis K57.9 2 [facility] [address] [facility] [id number] [place] [id number] Sep, [place] [address]358[address] [facility] [id number] [id number] Aug, Essential (primary) hypertension I10 ; D yspnea on exertion R06.09 ; Obstructive sleep apnea syndrome G47.33 and Tobacco abuse Z72.0 [facility] [address] [place] [address], [place] [id number] Aug, BMI 45.0-49.9, adult Z68.42 and Divertic ulitis K57.92 [facility] [id number] [place] [id number] Jul, Lumbago with sciatica, right side M54.41 and Dysthymia F34.1 [facility] [id number] [place] [id number] Jul, BMI 45.0-49.9, adult Z68.42 ; Dysthymia F34.1 ; Lumbago with sciatica, right side M54.41 and Essential (primary) hypertension I10 [facility] [address] [facility] [id number] [place] [id number] Jun, BMI 45.0-49.9, adult Z68.42 ; Essential (primary) hypertension I10 ; Dysthymia F34.1 ; Lumbago with sciatica, right side M54.41 and Mild intermittent asthma with acute exacerbation J45.21 [facility] [address] [facility] [id number] [place] [id number] Jun, [facility] [place] [facility] [address] [facility] [id number] [address] [place] [address] Jun, Chest congestion R09.89 ; Co ugh R05 and BMI 45.0-49.9, adult Z68.42 [facility] [address] [id number] [id number] Jun, Dental examination Z01.20 [facility] [place] [address] [id number] [place] [id number] May, Essential (primary) hypertension I10 ; L umbago with sciatica, right side M54.41 ; Anxiety F41.9 and BMI 45.0-49.9, adult Z68.42 [facility] [address] [id number][place] [id number] May, Essential (primary) hypertension I10 ; O ther chest pain R07.89 ; Dyspnea on exertion R06.09 ; Tobacco abuse Z72.0 ; Sleep apnea, unspecified type G47.30 ; BMI 45.0-49.9, adult Z68.42 and Morbid obesity E66.01 [facility] [address] [facility] [id number] [address] [place] [address] May, BMI 45.0-49.9, adult Z68.42 [facility] [address] [facility] [id number] [place] [id number] May, BMI 45.0-49.9, adult Z68.42 ; Lumbago wi th sciatica, right side M54.41 ; Anxiety F41.9 and Essential (primary) hypertension I10 [facility] [address] [facility] [id number] [address] [place] [address] Apr, [facility] [place] [address] [id number] [place] [id number] Apr, Anxiety F41.9 [facility] [place] [address] [id number] [place] [id number] Apr, Anxiety F41.9 [facility] [place] [address] [id number] [place] [id number] Apr, [facility] [address] [id number] [id number] Apr, Dental examination Z01.20 [facility] [address] [facility] [id number] [place] [id number] Apr, Anxiety F41.9 [facility] [place] [address] [facility] [id number] [place] [id number] Apr, Anxiety F41.9 and Lumbago with sciatica, right side M54.41 [facility] [place] [address] [id number] [place] [id number] March, Anxiety F41.9 [facility] [address] [facility] [id number] [place] [id number] March, Diverticulitis of large intestine, unspe cified bleeding status, unspecified complication status K57.32 ; Anxiety F41.9 and Essential (primary) hypertension I10 [facility] [address] [place] [id number] [place] [id number] March, RUQ abdominal pain R10.11 [facility] [address] [facility] [id number] 100[place] [address] Feb, Wheezing on auscultation R06 .2 [facility] [address] [place] [id number] [place] [id number] Feb, Anxiety F41.9 [facility] [address] [facility] [id number] [place] [id number] Feb, [facility] [address] [place] [id number] [place] [id number] Jan, BMI 50.0-59.9, adult Z68.43 ; Anxiety F4 1.9 ; Chest pain, unspecified type R07.9 and Essential (primary) hypertension I10 [facility] [place] [address] [place] [address] AVE [id number] [id number] Jan, BMI 45.0-49.9, adult Z68.42 ; Morbid obe sity E66.01 ; Chest pain, non- cardiac R07.89 ; Anxiety F41.9 ; Essential (primary) hypertension I10 and Tobacco abuse Z72.[address] [id number] [place] [id number] Jan, Essential (primary) hypertension I10 [facility] [address] [facility] [id number] [place] [id number] Dec, Essential (primary) hypertension I10 ; M igraine with aura and without status migrainosus, not intractable G43.109 ; Viral syndrome B34.9 and Lumbago with sciatica, right side M54.41 [facility] [address] [facility] [id number] [place] [id number] Nov, BMI 45.0-49.9, adult Z68.42 ; Migraine w ith aura and without status migrainosus, not intractable G43.109 and Essential (primary) hypertension I10 [facility] [address] [facility] [id number] [place] [id number] Nov, Essential (primary) hypertension I10 [facility] [address] [facility] [id number] [place] [id number] Nov, BMI 45.0-49.9, adult Z68.42 ; Essential (primary) hypertension I10 ; Anxiety F41.9 ; Lumbago with sciatica, right side M54.41 and Other chronic pain G89.29 [facility] [address] [facility] [id number] [place] [id number] Nov, [facility] [address] [facility] [id number] [place] [id number] Aug, RUQ abdominal pain R10.11 [facility] [address] [facility] [id number] [place] [id number] Aug, Essential (primary) hypertension I10 and Anxiety F41.9 [facility] [address] [facility] [id number] [place] [id number] May, Essential (primary) hypertension I10 and Anxiety F41.9 [facility] [address] [facility] [id number] [place] [id number] March, Diverticulitis of large intestine, unspe cified bleeding status, unspecified complication status K57.32 [facility] [address] [facility] [id number] 100[address] [place] [address] March, [facility] [place] [address] [id number] [place] [id number] March, [facility] [place] [address] [id number] [place] [id number] March, Chest wall pain R07.89 and Dysuria R30.0 [facility] [place] [address] [id number] [place] [id number] March, Anxiety F41.9 [facility] [place] [address] [id number] [place] [id number] Feb, Biliary dyskinesia K82.8 [facility] [place] [address] [id number] [place] [id number] Feb, Biliary dyskinesia K82.8 [facility] [place] [address] [id number] [place] [id number] Jan, Essential (primary) hypertension I10 and RUQ abdominal pain R10.11 [facility] [place] [address] [id number] [place] [id number] Jan, Essential (primary) hypertension I10 and Anxiety F41.9 [facility] [place] [id number] [place] [id number] Dec, Essential (primary) hypertension I10 [facility] [address] [id number] [place] [id number] Nov, Migraine with aura and without status mi grainosus, not intractable G43.109 and Essential (primary) hypertension I10 [facility] [place] [address] [facility] [id number] [place] [id number] Nov, Anxiety F41.9 ; Migraine with aura and w ithout status migrainosus, not intractable G43.109 and Insomnia, unspecified type G47.00 [facility] [place] [address] [id number] [place] [id number] Oct, Migraine with aura and without status mi grainosus, not intractable G43.109 [facility] [place] [id number] [place] [id number] Oct, Anxiety F41.9 and Essential (primary) hy pertension I10 [facility] [address] [place] [id number] [address] [place] [address] Oct, [facility] [address] [place] [id number] [address] [place] [address] Sep, [facility] [address] [place] [id number] [place] [address], [place] [id number] Sep, Diverticulitis of large intestine withou t perforation or abscess without bleeding K57.32 and Anxiety F41.9 [facility] [address] [facility] [id number] [place] [id number] Aug, Diverticulitis of large intestine withou t perforation or abscess without bleeding K57.32 [facility] [address] [place] [id number] [address] [place] [address] Aug, [facility] [address] [place] [id number] [place], [place] [address], [place] [id number] Aug, [facility] [address] [place] [id number] [address] [place] [address] Aug, [facility] [address] [place] [id number] [place] [id number] Aug, [facility] [address] [place] [id number] [place] [address], [place] [id number] Jul, Ingrown left big toenail L60.0 [facility] [facility] [address] [place] [id number] [place] [id number] Jul, [facility] [place] [facility] [address] [place] [id number] [place], [place] [address], [place] [id number] Jul, Ingrowing toenail of right foot L60.0 [facility] [address] [place] [id number] [place] [id number] Apr, [facility] [place] [address] [place] [id number] [place], [place] [address], [place] [id number] Apr, RUQ abdominal pain R10.11 ; Fatty liver disease, nonalcoholic K76.0 ; Hx of hyperglycemia Z86.39 ; Elevated alanine aminotransferase (ALT) level R74.0 ; Elevated LDL cholesterol level E78.0 and Prediabetes R73.09 [facility] [address] [facility] [id number] [place] [id number] Apr, RUQ abdominal pain R10.11 ; Mild persist ent asthma without complication J45.30 ; Anxiety F41.9 and Essential (primary) hypertension I10 [facility] [address] [facility] [id number] [place] [id number] March, Wheezing R06.2 and Cough R05 [facility] [address] [place] [id number] [place] [id number] March, [facility] [address] [facility] [id number] [place] [id number] March, [facility] [address] [facility] [id number] [place] [id number] March, Acute severe exacerbation of asthma J45. 51 ; Cough R05 and Cough headache G44.83 [facility] [address] [place] [id number] [place] [id number] Feb, Mild intermittent asthma with acute exac erbation J45.21 and Transient insomnia F51.02 [facility] [address] [place] [id number] [place] [id number] Feb, Pigmented skin lesion of uncertain natur e L81.9 [facility] [address] [facility] [id number] [place] [id number] Feb, Anxiety F41.9 and Essential (primary) hy pertension I10 [facility] [address] [facility] [id number] [place] [id number] Jan, [facility] [address] [facility] [id number] [place] [id number] Jan, Routine gynecological examination Z01.41 9 and Encounter for Papanicolaou smear for cervical cancer screening Z12.4 [facility] [address] [facility] [id number] [place] [id number] Jan, 2016 Essential (primary) hypertension I10 and Anxiety F41.9 [facility] [address] [facility] [id number] [place] [id number] Dec, Essential (primary) hypertension I10 and Anxiety F41.9 [facility] [place] [address] [id number] [place] [id number] Nov, Essential (primary) hypertension I10 [facility] [address] [id number][place] [id number] Aug, [facility] [place] [address] [id number] [place] [id number] Aug, CAP (community acquired pneumonia) J18.9 [facility] [place] [address] [id number] [place] [id number] Aug, CAP (community acquired pneumonia) J18.9 [facility] [address] [id number], [place] [id number] Aug, CAP (community acquired pneumonia) J18.9 [facility] [place] [address] [id number] [place] [id number] Aug, CAP (community acquired pneumonia) J18.9 and Essential (primary) hypertension I10 [facility] [place] [address] [id number] [place] [id number] Aug, CAP (community acquired pneumonia) J18.9 [facility] [address] [facility] [id number] [address] [place] [address] Apr, [facility] [address] [facility] [id number] [address] [place] [address] Feb, [facility] [address] [facility] [id number] [address] [place] [address] Feb, [facility] [place] [address] [id number] [place] [id number] Jan, [facility] [address] [facility] [id number] [address] [place] [address] Jan, [facility] [address] [facility] [id number] [address] [place] [address] Nov, [facility] [place] [facility] [address] [id number] [place] [id number] Nov, [facility] [address] [id number] [address] [place] [address], [place] [address] Nov, [facility] [place] [address] [id number] [place] [id number] Oct, [facility] [address] [id number] [address] [place] [address], [place] [address] Oct, [facility] [place] [address] [id number] [place] [id number] Sep, [facility] [address] [id number] [address] [place] [address], [place] [address] Sep, [facility] [place] [address] [id number] [place] [id number] Jun, [facility] [address] [facility] [id number] [address] [place] [address], [place] [address] Jun, [facility] [place] [address] [id number] [place] [id number] Jun, [facility] [address] [facility] [id number] [address] [place] [address], [place] [address] Jun, [facility] [place] [address] [id number] [place] [id number] May, [facility] [address] [facility] [id number] [address] [place] [address], [place] [address] May, [facility] [place] [address] [id number] [place] [id number] Dec, [facility] [address] [id number] [address] [place] [address], [place] [address] Dec, [facility] [place] [address] [id number] [place] [id number] Feb, [facility] [place] [address] [id number] [place] [id number] Feb, [facility] [place] [address] [id number] [place] [id number] Feb, [facility] [address] [facility] [id number] [address] [place] [address], [place] [address] 16 Feb, 2013 [facility] [place] [address] [id number] [place] [id number] 15 Feb, 2013 [facility] [place] [address] [id number] [place] [id number] 15 Feb, 2013 [facility] [address] [id number] [address] [place] [address] 14 Feb, 2013 [facility] [address] [id number] [address] [place] [address] Feb, [facility] [address] [id number] [address] [place] [address] Feb, [facility] [place] [address] [id number] [place] [id number] Feb, [facility] [place] [address] [id number] [place] [id number] Feb, [facility] [place] [address] [id number] [place] [id number] Jan, [facility] [place] [address] [id number] [place] [id number] Nov, [facility] [place] [address] [id number] [place] [id number] Nov, [facility] [address] [id number] [address] [place] [address] Oct, [facility] [address] [id number] [address] [place] [address] Apr, [facility] [address] [id number] [address] [place] [address] 16 Dec, 2009 [facility] [address] [facility] [id number] [address] [place] [address] Nov, [facility] [address] [facility] [id number] [address] [place] [address] 16 Oct, 2009 [facility] [address] [facility] [id number] [address] [place] [address] 16 Oct, 2009 [facility] [address] [facility] [id number] [address] [place] [address] Sep, [facility] [address] [facility] [id number] [address] [place] [address] Sep, [facility] [address] [facility] [id number] [address] [place] [address] Sep, IMMUNIZATIONS No Known Immunizations SOCIAL HISTORY Never Assessed REASON FOR VISIT Medication refill PLAN OF CARE VITAL SIGNS MEDICATIONS Medication Instructions Dosage Frequency Start Date End Date Duration S tatus Tramadol HCl 50 mg Orally 2 times a day must lasst 28 d 1 tablet a s needed Apr, May, 28 days Active Clonazepam 1 MG Orally Once a day prn mustr last 28 day 1-2 tablet Jun, 28 days Active RESULTS No Results PROCEDURES [...]
--- OUTSIDE RECORDS SUMMARY | 2020-03-17 14:55 | XMS REPORT | Continuity of Care Document ---
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 UNSPECIFIED CHRONIC BRONCHITIS 08/09/2017 HEATHER SMITH FACILITY TECHNICIAN Ot J45.909 UNSPECIFIED ASTHMA, UNCOMPLICATED 08/09/2017 HEATHER SMITH FACILITY TECHNICIAN Ot R53.83 OTHER FATIGUE 08/09/2017 HEATHER SMITH FACILITY TECHNICIAN Ot Z72.0 TOBACCO USE 09/13/2017 POWER ABEBE MD Ot D35.0 0 BENIGN NEOPLASM OF UNSPECIFIED ADRENAL G 09/13/2017 POWER ABEBE MD Ot F17.2 10 NICOTINE DEPENDENCE, CIGARETTES, UNCOMPL 09/13/2017 POWER ABEBE MD Ot F32.9 MAJOR DEPRESSIVE DISORDER, SINGLE EPISOD 09/13/2017 POWER ABEBE MD Ot I10 ESSENTIAL (PRIMARY) HYPERTENSION 09/13/2017 POWER ABEBE MD Ot J45.9 09 UNSPECIFIED ASTHMA, UNCOMPLICATED 09/13/2017 POWER ABEBE MD Ot K21.9 GASTRO-ESOPHAGEAL REFLUX DISEASE WITHOUT 09/13/2017 POWER ABEBE MD R Ot 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 09/13/2017 POWER ABEBE MD Ot K76.0 FATTY (CHANGE OF) LIVER, NOT ELSEWHERE C 09/13/2017 POWER ABEBE MD Ot R73.0 3 PREDIABETES 09/13/2017 POWER ABEBE MD Ot D35.0 0 BENIGN NEOPLASM OF UNSPECIFIED ADRENAL G 09/13/2017 POWER ABEBE MD Ot F17.2 10 NICOTINE DEPENDENCE, CIGARETTES, UNCOMPL 09/13/2017 POWER ABEBE MD Ot F32.9 MAJOR DEPRESSIVE DISORDER, SINGLE EPISOD 09/13/2017 POWER ABEBE MD Ot I10 ESSENTIAL (PRIMARY) HYPERTENSION 09/13/2017 POWER ABEBE MD Ot J45.9 09 UNSPECIFIED ASTHMA, UNCOMPLICATED 09/13/2017 POWER ABEBE MD Ot K21.9 GASTRO-ESOPHAGEAL REFLUX DISEASE WITHOUT 09/13/2017 POWER ABEBE MD R Ot 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 09/13/2017 POWER ABEBE MD Ot K76.0 FATTY (CHANGE OF) LIVER, NOT ELSEWHERE C 09/13/2017 POWER ABEBE MD Ot R73.0 3 PREDIABETES 09/22/2017 NUZHAT FRANKS CFNP Ot R10.11 RIGHT UPPER QUADRANT PAIN 01/27/2018 FRANKSNUZHAT RIVERA CFNP Ot R10.11 RIGHT UPPER QUADRANT PAIN 01/27/2018 RODSHERIDANKenia De Guzman FACILITY TECHNICIAN Ot S80.11XA CONTUSION OF RIGHT LOWER LEG, INITIAL EN 01/27/2018 RODSHERIDANKenia De Guzman FACILITY TECHNICIAN Ot W19.XXXA UNSPECIFIED FALL, INITIAL ENCOUNTER 01/27/2018 ROD SOTERO L FACILITY TECHNICIAN Ot Y99 .8 OTHER EXTERNAL CAUSE STATUS 01/27/2018 JUHI PELLETIER, BARON Chan Ot E11. 9 TYPE 2 DIABETES MELLITUS WITHOUT COMPLIC 01/27/2018 BARON REYNAGA MD Ot F32. 9 MAJOR DEPRESSIVE DISORDER, SINGLE EPISOD 01/27/2018 JUHI PELLETIER, BARON Chan Ot G43.909 MIGRAINE, UNSP, NOT INTRACTABLE, WITHOUT 01/27/2018 BARON REYNAGA MD Ot I10 ESSENTIAL (PRIMARY) HYPERTENSION 01/27/2018 BARON REYNAGA MD Ot J45.909 UNSPECIFIED ASTHMA, UNCOMPLICATED 01/27/2018 BARON REYNAGA MD Ot K21. 9 GASTRO-ESOPHAGEAL REFLUX DISEASE WITHOUT 01/27/2018 BARON REYNAGA MD Ot R07. 89 OTHER CHEST PAIN 01/27/2018 BARON REYNAGA MD Ot Z87. 42 PERSONAL HISTORY OF OTH DISEASES OF THE 01/27/2018 BARON REYNAGA MD Ot Z88. 5 ALLERGY STATUS TO NARCOTIC AGENT STATUS 01/30/2018 BARON REYNAGA MD Ot E11. 9 TYPE 2 DIABETES MELLITUS WITHOUT COMPLIC 01/30/2018 BARON REYNAGA MD Ot F32. 9 MAJOR DEPRESSIVE DISORDER, SINGLE EPISOD 01/30/2018 BARON REYNAGA MD Ot G43.909 MIGRAINE, UNSP, NOT INTRACTABLE, WITHOUT 01/30/2018 BARON REYNAGA MD Ot I10 ESSENTIAL (PRIMARY) HYPERTENSION 01/30/2018 BARON REYNAGA MD Ot J45.909 UNSPECIFIED ASTHMA, UNCOMPLICATED 01/30/2018 BARON REYNAGA MD Ot K21. 9 GASTRO-ESOPHAGEAL REFLUX DISEASE WITHOUT 01/30/2018 BARON REYNAGA MD Ot R07. 89 OTHER CHEST PAIN 01/30/2018 BARON REYNAGA MD Ot Z87. 42 PERSONAL HISTORY OF OTH DISEASES OF THE 01/30/2018 JUHI PELLETIER, BARON Chan Ot Z88. 5 ALLERGY STATUS TO NARCOTIC AGENT STATUS 01/30/2018 AMY BENSON APRN Ot E11 .9 TYPE 2 DIABETES MELLITUS WITHOUT COMPLIC 01/30/2018 AMY BENSON APRN Ot E66 .9 OBESITY, UNSPECIFIED 01/30/2018 AMY BENSON APRN Ot F32 .9 MAJOR DEPRESSIVE DISORDER, SINGLE EPISOD 01/30/2018 AMY BENSON APRN Ot G43.909 MIGRAINE, UNSP, NOT INTRACTABLE, WITHOUT 01/30/2018 AMY BENSON APRN Ot I10 ESSENTIAL (PRIMARY) HYPERTENSION 01/30/2018 AMY BENSON APRN Ot J45.909 UNSPECIFIED ASTHMA, UNCOMPLICATED 01/30/2018 AMY BENSON APRN Ot K21 .9 GASTRO-ESOPHAGEAL REFLUX DISEASE WITHOUT 01/30/2018 AMY BENSON APRN Ot R07.89 OTHER CHEST PAIN 01/30/2018 AMY BENSON APRN Ot R94.31 ABNORMAL ELECTROCARDIOGRAM [ECG] [EKG] 01/30/2018 AMY BENSON APRN Ot Z68.43 BODY MASS INDEX (BMI) 50-59.9 , ADULT 01/30/2018 AMY BENSON APRN Ot Z80 .0 FAMILY HISTORY OF MALIGNANT NEOPLASM OF 01/30/2018 AMY BENSON APRN Ot Z87.19 PERSONAL HISTORY OF OTHER DISEASES OF TH 01/30/2018 AMY BENSON APRN Ot Z88 .5 ALLERGY STATUS TO NARCOTIC AGENT STATUS 01/31/2018 NUZHAT FRANKS Ot R10.11 RIGHT UPPER QUADRANT PAIN 01/31/2018 SOTERO VELASCO FACILITY TECHNICIAN Ot S80.11XA CONTUSION OF RIGHT LOWER LEG, INITIAL EN 01/31/2018 SOTERO VELASCO FACILITY TECHNICIAN Ot W19.XXXA UNSPECIFIED FALL, INITIAL ENCOUNTER 01/31/2018 SOTERO VELASCO FACILITY TECHNICIAN Ot Y99 .8 OTHER EXTERNAL CAUSE STATUS 01/31/2018 NUZHAT FRANKS Ot R10.11 RIGHT UPPER QUADRANT PAIN 01/31/2018 SOTERO VELASCO FACILITY TECHNICIAN Ot S80.11XA CONTUSION OF RIGHT LOWER LEG, INITIAL EN 01/31/2018 SOTERO VELASCO FACILITY TECHNICIAN Ot W19.XXXA UNSPECIFIED FALL, INITIAL ENCOUNTER 01/31/2018 SOTERO VELASCO FACILITY TECHNICIAN Ot Y99 .8 OTHER EXTERNAL CAUSE STATUS 02/01/2018 AMY BENSON APRN Ot E11 .9 TYPE 2 DIABETES MELLITUS WITHOUT COMPLIC 02/01/2018 AMY BENSON APRN Ot E66 .9 OBESITY, UNSPECIFIED 02/01/2018 AMY BENSON APRN Ot F32 .9 MAJOR DEPRESSIVE DISORDER, SINGLE EPISOD 02/01/2018 AMY BENSON APRN Ot G43.909 MIGRAINE, UNSP, NOT INTRACTABLE, WITHOUT 02/01/2018 AMY BENSON APRN Ot I10 ESSENTIAL (PRIMARY) HYPERTENSION 02/01/2018 AMY BENSON APRN Ot J45.909 UNSPECIFIED ASTHMA, UNCOMPLICATED 02/01/2018 AMY BENSON APRN Ot K21 .9 GASTRO-ESOPHAGEAL REFLUX DISEASE WITHOUT 02/01/2018 AMY BENSON APRN Ot R07.89 OTHER CHEST PAIN 02/01/2018 AMY BENSON APRN Ot R94.31 ABNORMAL ELECTROCARDIOGRAM [ECG] [EKG] 02/01/2018 AMY BENSON APRN Ot Z68.43 BODY MASS INDEX (BMI) 50-59.9 , ADULT 02/01/2018 AMY BENSON APRN Ot Z80 .0 FAMILY HISTORY OF MALIGNANT NEOPLASM OF 02/01/2018 AMY BENSON APRN Ot Z87.19 PERSONAL HISTORY OF OTHER DISEASES OF TH 02/01/2018 AMY BENSON APRN Ot Z88 .5 ALLERGY STATUS TO NARCOTIC AGENT STATUS 03/08/2018 SOTERO VELASCO FACILITY TECHNICIAN Ot S80.11XA CONTUSION OF RIGHT LOWER LEG, INITIAL EN 03/08/2018 SOTERO VELASCO FACILITY TECHNICIAN Ot W19.XXXA UNSPECIFIED FALL, INITIAL ENCOUNTER 03/08/2018 SOTERO VELASCO FACILITY TECHNICIAN Ot Y99 .8 OTHER EXTERNAL CAUSE STATUS 03/31/2018 AMY BENSON APRN Ot E11 .9 TYPE 2 DIABETES MELLITUS WITHOUT COMPLIC 03/31/2018 AMY BENSON APRN Ot E66 .9 OBESITY, UNSPECIFIED 03/31/2018 AMY BENSON APRN Ot F32 .9 MAJOR DEPRESSIVE DISORDER, SINGLE EPISOD 03/31/2018 AMY BENSON APRN Ot G43.909 MIGRAINE, UNSP, NOT INTRACTABLE, WITHOUT 03/31/2018 AMY BENSON APRN Ot I10 ESSENTIAL (PRIMARY) HYPERTENSION 03/31/2018 AMY BENSON APRN Ot J45.909 UNSPECIFIED ASTHMA, UNCOMPLICATED 03/31/2018 AMY BENSON APRN Ot K21 .9 GASTRO-ESOPHAGEAL REFLUX DISEASE WITHOUT 03/31/2018 AMY BENSON APRN Ot K57.32 DVTRCLI OF LG INT W/O PERFORATION OR ABS 03/31/2018 AMY BENSON APRN Ot R10.32 LEFT LOWER QUADRANT PAIN 03/31/2018 AMY BENSON APRN Ot Z68.43 BODY MASS INDEX (BMI) 50-59.9 , ADULT 03/31/2018 AMY BENSON APRN Ot Z79.51 [facility] (CURRENT) USE OF INHALED STERO 03/31/2018 AMY BENSON APRN Ot Z87.19 PERSONAL HISTORY OF OTHER DISEASES OF TH 03/31/2018 AMY BENSON APRN Ot Z87.448 PERSONAL HISTORY OF OTHER DISEASES OF UR 03/31/2018 AMY BENSON APRN Ot Z88 .6 ALLERGY STATUS TO ANALGESIC AGENT STATUS 04/03/2018 AMY BENSON APRN Ot E11 .9 TYPE 2 DIABETES MELLITUS WITHOUT COMPLIC 04/03/2018 AMY BENSON APRN Ot E66 .9 OBESITY, UNSPECIFIED 04/03/2018 AMY BENSON APRN Ot F32 .9 MAJOR DEPRESSIVE DISORDER, SINGLE EPISOD 04/03/2018 AMY BENSON APRN Ot G43.909 MIGRAINE, UNSP, NOT INTRACTABLE, WITHOUT 04/03/2018 AMY BENSON APRN Ot I10 ESSENTIAL (PRIMARY) HYPERTENSION 04/03/2018 AMY BENSON APRN Ot J45.909 UNSPECIFIED ASTHMA, UNCOMPLICATED 04/03/2018 AMY BENSON APRN Ot K21 .9 GASTRO-ESOPHAGEAL REFLUX DISEASE WITHOUT 04/03/2018 AMY BENSON APRN Ot K57.32 DVTRCLI OF LG INT W/O PERFORATION OR ABS 04/03/2018 AMY BENSON APRN Ot R10.32 LEFT LOWER QUADRANT PAIN 04/03/2018 AMY BENSON APRN Ot Z68.43 BODY MASS INDEX (BMI) 50-59.9 , ADULT 04/03/2018 AMY BENSON FACILITY TECHNICIAN Ot Z79.51 [facility] (CURRENT) USE OF INHALED STERO 04/03/2018 AMY BENSON FACILITY TECHNICIAN Ot Z87.19 PERSONAL HISTORY OF OTHER DISEASES OF TH 04/03/2018 AMY BENSON FACILITY TECHNICIAN Ot Z87.448 PERSONAL HISTORY OF OTHER DISEASES OF UR 04/03/2018 AMY BENSON FACILITY TECHNICIAN Ot Z88 .6 ALLERGY STATUS TO ANALGESIC AGENT STATUS 08/07/2018 BAILAURENCE ALBERTSHER L GLASS ETCHER Ot I 10 ESSENTIAL (PRIMARY) HYPERTENSION 08/07/2018 BAIMA COSTA L GLASS ETCHER Ot R06.09 OTHER FORMS OF DYSPNEA 08/07/2018 BAIMA, COSTA L GLASS ETCHER Ot R07.89 OTHER CHEST PAIN 08/09/2018 BAIMA, COSTA L GLASS ETCHER Ot I 10 ESSENTIAL (PRIMARY) HYPERTENSION 08/09/2018 BAIMA, COSTA L GLASS ETCHER Ot R06.09 OTHER FORMS OF DYSPNEA 08/09/2018 BAIMA COSTA L GLASS ETCHER Ot R07.89 OTHER CHEST PAIN 09/26/2018 NUZHAT FRANKS CFNP Ot R10.11 RIGHT UPPER QUADRANT PAIN 09/26/2018 SOTERO VELASCO FACILITY TECHNICIAN Ot S80.11XA CONTUSION OF RIGHT LOWER LEG, INITIAL EN 09/26/2018 SOTERO VELASCO FACILITY TECHNICIAN Ot W19.XXXA UNSPECIFIED FALL, INITIAL ENCOUNTER 09/26/2018 SOTERO VELASCO FACILITY TECHNICIAN Ot Y99 .8 OTHER EXTERNAL CAUSE STATUS 09/26/2018 BAILEXUS COSTA L GLASS ETCHER Ot I 10 ESSENTIAL (PRIMARY) HYPERTENSION 09/26/2018 BAIMA COSTA L GLASS ETCHER Ot R06.09 OTHER FORMS OF DYSPNEA 09/26/2018 BAIMA, COSTA L GLASS ETCHER Ot R07.89 OTHER CHEST PAIN 09/26/2018 BAIMA, COSTA L GLASS ETCHER Ot I 10 ESSENTIAL (PRIMARY) HYPERTENSION 09/26/2018 BAIMA, COSTA L GLASS ETCHER Ot R06.09 OTHER FORMS OF DYSPNEA 09/26/2018 BAIMA, COSTA L GLASS ETCHER Ot R07.89 OTHER CHEST PAIN 09/26/2018 QUITA, HOSSEIN GLASS ETCHER Ot E11.9 TYPE 2 DIABETES MELLITUS WITHOUT COMPLIC 09/26/2018 QUITA, HOSSEIN GLASS ETCHER Ot E66.9 OBESITY, UNSPECIFIED 09/26/2018 QUITA, HOSSEIN GLASS ETCHER Ot F32.9 MAJOR DEPRESSIVE DISORDER, SINGLE EPISOD 09/26/2018 QUITAHOSSEIN Campos GLASS ETCHER Ot G43.909 MIGRAINE, UNSP, NOT INTRACTABLE, WITHOUT 09/26/2018 QUITA, HOSSEIN GLASS ETCHER Ot I10 ESSENTIAL (PRIMARY) HYPERTENSION 09/26/2018 QUITA, HOSSEIN GLASS ETCHER Ot J45.909 UNSPECIFIED ASTHMA, UNCOMPLICATED 09/26/2018 QUITA, HOSSEIN GLASS ETCHER Ot K08.89 OTHER SPECIFIED DISORDERS OF TEETH AND S 09/26/2018 QUITAHOSSEIN Campos GLASS ETCHER Ot K21.9 GASTRO-ESOPHAGEAL REFLUX DISEASE WITHOUT 09/26/2018 QUITA, HOSSEIN GLASS ETCHER Ot S02.5XXA FRACTURE OF TOOTH (TRAUMATIC), INIT FOR 09/26/2018 QUITA HOSSEIN GLASS ETCHER Ot X58.XXXA EXPOSURE TO OTHER SPECIFIED FACTORS, INI 09/26/2018 QUITA, HOSSEIN GLASS ETCHER Ot Z68.42 BODY MASS INDEX (BMI) 45.0-49.9, ADULT 09/26/2018 QUITAHOSSEIN Campos GLASS ETCHER Ot Z79.51 [facility] (CURRENT) USE OF INHALED STERO 09/26/2018 QUITA, HOSSEIN GLASS ETCHER Ot Z80.0 FAMILY HISTORY OF MALIGNANT NEOPLASM OF 09/26/2018 QUITA, HOSSEIN GLASS ETCHER Ot Z82.49 FAMILY HX OF ISCHEM HEART DIS AND OTH DI 09/26/2018 QUITA, HOSSEIN GLASS ETCHER Ot Z87.19 PERSONAL HISTORY OF OTHER DISEASES OF TH 09/26/2018 QUITA, HOSSEIN GLASS ETCHER Ot Z87.448 PERSONAL HISTORY OF OTHER DISEASES OF UR 09/26/2018 QUITA, HOSSEIN GLASS ETCHER Ot Z88.6 ALLERGY STATUS TO ANALGESIC AGENT STATUS 09/28/2018 QUITA, HOSSEIN GLASS ETCHER Ot E11.9 TYPE 2 DIABETES MELLITUS WITHOUT COMPLIC 09/28/2018 QUITA, HOSSEIN GLASS ETCHER Ot E66.9 OBESITY, UNSPECIFIED 09/28/2018 QUITA, HOSSEIN GLASS ETCHER Ot F32.9 MAJOR DEPRESSIVE DISORDER, SINGLE EPISOD 09/28/2018 QUITA, HOSSEIN GLASS ETCHER Ot G43.909 MIGRAINE, UNSP, NOT INTRACTABLE, WITHOUT 09/28/2018 QUITA, HOSSEIN GLASS ETCHER Ot I10 ESSENTIAL (PRIMARY) HYPERTENSION 09/28/2018 QUITA, HOSSEIN GLASS ETCHER Ot J45.909 UNSPECIFIED ASTHMA, UNCOMPLICATED 09/28/2018 QUITA, HOSSEIN GLASS ETCHER Ot K08.89 OTHER SPECIFIED DISORDERS OF TEETH AND S 09/28/2018 HOSSEIN DEVLINP Ot K21.9 GASTRO-ESOPHAGEAL REFLUX DISEASE WITHOUT 09/28/2018 HOSSEIN DEVLINP Ot S02.5XXA FRACTURE OF TOOTH (TRAUMATIC), INIT FOR 09/28/2018 HOSSEIN DEVLINP Ot X58.XXXA EXPOSURE TO OTHER SPECIFIED FACTORS, INI 09/28/2018 HOSSEIN DEVLINP Ot Z68.42 BODY MASS INDEX (BMI) 45.0-49.9, ADULT 09/28/2018 HOSSEIN DEVLINP Ot Z79.51 [facility] (CURRENT) USE OF INHALED STERO 09/28/2018 HOSSEIN DEVLINP Ot Z80.0 FAMILY HISTORY OF MALIGNANT NEOPLASM OF 09/28/2018 HOSSEIN DEVLINP Ot Z82.49 FAMILY HX OF ISCHEM HEART DIS AND OTH DI 09/28/2018 HOSSEIN DEVLINP Ot Z87.19 PERSONAL HISTORY OF OTHER DISEASES OF TH 09/28/2018 HOSSEIN DEVLINP Ot Z87.448 PERSONAL HISTORY OF OTHER DISEASES OF UR 09/28/2018 HOSSEIN DEVLINP Ot Z88.6 ALLERGY STATUS TO ANALGESIC AGENT STATUS 10/21/2018 NUZHAT FRANKS CFNP Ot R10.11 RIGHT UPPER QUADRANT PAIN 10/21/2018 SOTERO VELASCO FACILITY TECHNICIAN Ot S80.11XA CONTUSION OF RIGHT LOWER LEG, INITIAL EN 10/21/2018 SOTERO VELASCO FACILITY TECHNICIAN Ot W19.XXXA UNSPECIFIED FALL, INITIAL ENCOUNTER 10/21/2018 SOTERO VELASCO APRN Ot Y99 .8 OTHER EXTERNAL CAUSE STATUS 10/21/2018 COSTA JEFFRIES GLASS ETCHER Ot I 10 ESSENTIAL (PRIMARY) HYPERTENSION 10/21/2018 COSTA JEFFRIES L GLASS ETCHER Ot R06.09 OTHER FORMS OF DYSPNEA 10/21/2018 PAULINAMACOSTA L GLASS ETCHER Ot R07.89 OTHER CHEST PAIN 10/21/2018 BAILEXUS COSTA L GLASS ETCHER Ot I 10 ESSENTIAL (PRIMARY) HYPERTENSION 10/21/2018 NESHA COSTA L GLASS ETCHER Ot R06.09 OTHER FORMS OF DYSPNEA 10/21/2018 NESHA COSTA L GLASS ETCHER Ot R07.89 OTHER CHEST PAIN 10/21/2018 NUZHAT FRANKS CFNP Ot R10.11 RIGHT UPPER QUADRANT PAIN 10/21/2018 SOTERO VELASCO FACILITY TECHNICIAN Ot S80.11XA CONTUSION OF RIGHT LOWER LEG, INITIAL EN 10/21/2018 SOTERO VELASCO FACILITY TECHNICIAN Ot W19.XXXA UNSPECIFIED FALL, INITIAL ENCOUNTER 10/21/2018 SOTERO VELASCO FACILITY TECHNICIAN Ot Y99 .8 OTHER EXTERNAL CAUSE STATUS 10/21/2018 COSTA JEFFRIES GLASS ETCHER Ot I 10 ESSENTIAL (PRIMARY) HYPERTENSION 10/21/2018 BAICOSTA ALBERTS GLASS ETCHER Ot R06.09 OTHER FORMS OF DYSPNEA 10/21/2018 BAILEXUS COSTA Gege GLASS ETCHER Ot R07.89 OTHER CHEST PAIN 10/21/2018 PAULINACOSTA ALBERTS GLASS ETCHER Ot I 10 ESSENTIAL (PRIMARY) HYPERTENSION 10/21/2018 COSTA JEFFRIES GLASS ETCHER Ot R06.09 OTHER FORMS OF DYSPNEA 10/21/2018 PAULINACOSTA ALBERTS GLASS ETCHER Ot R07.89 OTHER CHEST PAIN 10/24/2018 AMY BENSON APRN Ot E11 .9 TYPE 2 DIABETES MELLITUS WITHOUT COMPLIC 10/24/2018 AMY BENSON APRN Ot E66 .9 OBESITY, UNSPECIFIED 10/24/2018 AMY BENSON APRN Ot F32 .9 MAJOR DEPRESSIVE DISORDER, SINGLE EPISOD 10/24/2018 AMY BENSON APRN Ot G43.909 MIGRAINE, UNSP, NOT INTRACTABLE, WITHOUT 10/24/2018 AMY BENSON APRN Ot I10 ESSENTIAL (PRIMARY) HYPERTENSION 10/24/2018 AMY BENSON APRN, Ot J45.909 UNSPECIFIED ASTHMA, UNCOMPLICATED 10/24/2018 AMY BENSON APRN Ot K21 .9 GASTRO-ESOPHAGEAL REFLUX DISEASE WITHOUT 10/24/2018 AMY BESNON APRN Ot S61.213A LACERATION W/O FB OF L MID FINGER W/O DA 10/24/2018 AMY BENSON APRN Ot S67.22XA CRUSHING INJURY OF LEFT HAND, INITIAL EN 10/24/2018 AMY BENSON APRN Ot W23.1XXA CAUGHT, CRUSH, JAMMED, OR PINCHED BETW S 10/24/2018 AMY BENSON APRN Ot Y92.[address] IN [facility] 10/24/2018 AMY BENSON APRN Ot Z68.42 BODY MASS INDEX (BMI) 45.0-49.9, ADULT 10/24/2018 AMY BENSON APRN Ot Z79.51 [facility] (CURRENT) USE OF INHALED STERO 10/24/2018 AMY BENSON APRN Ot Z80 .0 FAMILY HISTORY OF MALIGNANT NEOPLASM OF 10/24/2018 AMY BENSON APRN Ot Z82.49 FAMILY HX OF ISCHEM HEART DIS AND OTH DI 10/24/2018 AMY BENSON APRN Ot Z87.19 PERSONAL HISTORY OF OTHER DISEASES OF TH 10/24/2018 AMY BENSON APRN Ot S61.213D LACERATION W/O FB OF L MID FINGER W/O DA 10/24/2018 AMY BENSON APRN Ot W31.2XXD CONTACT W POWERED WOODWORKING AND FORMIN 10/24/2018 AMY BENSON APRN Ot S61.213D LACERATION W/O FB OF L MID FINGER W/O DA 10/24/2018 AMY BENSON APRN Ot W31.2XXD CONTACT W POWERED WOODWORKING AND FORMIN 10/24/2018 AMY BENSON APRN Ot S61.213D LACERATION W/O FB OF L MID FINGER W/O DA 10/24/2018 AMY BENSON APRN Ot W31.2XXD CONTACT W POWERED WOODWORKING AND FORMIN 10/28/2018 AMY BENSON APRN Ot S61.213D LACERATION W/O FB OF L MID FINGER W/O DA 10/28/2018 AMY BENSON APRN Ot W31.2XXD CONTACT W POWERED WOODWORKING AND FORMIN 10/28/2018 AMY BENSON APRN Ot S61.213D LACERATION W/O FB OF L MID FINGER W/O DA 10/28/2018 AMY BENSON APRN Ot W31.2XXD CONTACT W POWERED WOODWORKING AND FORMIN 01/28/2020 JH PELLETIER, JERZY Flores Ot E66.9 OBESITY, UNSPECIFIED 01/28/2020 JH PELLETIER, JERZY Flores Ot F17.290 NICOTINE DEPENDENCE, OTHER TOBACCO PRODU 01/28/2020 JH PELLETIER, JERZY Flores Ot F32.9 MAJOR DEPRESSIVE DISORDER, SINGLE EPISOD 01/28/2020 JERZY PEÑALOZA MD Ot I10 ESSENTIAL (PRIMARY) HYPERTENSION 01/28/2020 JERZY PEÑALOZA MD Ot J45.909 UNSPECIFIED ASTHMA, UNCOMPLICATED 01/28/2020 JERZY PEÑALOZA MD Ot K21.9 GASTRO-ESOPHAGEAL REFLUX DISEASE WITHOUT 01/28/2020 JERZY PEÑALOZA MD Ot N92.0 EXCESSIVE AND FREQUENT MENSTRUATION WITH 01/28/2020 JERZY PEÑALOZA MD Ot N93.9 ABNORMAL UTERINE AND VAGINAL BLEEDING, U 01/28/2020 JERZY PEÑALOZA MD Ot Z68.42 BODY MASS INDEX (BMI) 45.0-49.9, ADULT 01/28/2020 JERZY PEÑALOZA MD Ot Z80.0 FAMILY HISTORY OF MALIGNANT NEOPLASM OF 01/28/2020 JERZY PEÑALOZA MD Ot Z88.5 ALLERGY STATUS TO NARCOTIC AGENT STATUS 01/31/2020 JERZY PEÑALOZA MD Ot E66.9 OBESITY, UNSPECIFIED 01/31/2020 JERZY PEÑALOZA MD Ot F17.290 NICOTINE DEPENDENCE, OTHER TOBACCO PRODU 01/31/2020 JERZY PEÑALOZA MD Ot F32.9 MAJOR DEPRESSIVE DISORDER, SINGLE EPISOD 01/31/2020 JERZY PEÑALOZA MD Ot I10 ESSENTIAL (PRIMARY) HYPERTENSION 01/31/2020 JERZY PEÑALOZA MD Ot J45.909 UNSPECIFIED ASTHMA, UNCOMPLICATED 01/31/2020 JERZY PEÑALOZA MD Ot K21.9 GASTRO-ESOPHAGEAL REFLUX DISEASE WITHOUT 01/31/2020 JERZY PEÑALOZA MD Ot N92.0 EXCESSIVE AND FREQUENT MENSTRUATION WITH 01/31/2020 JERZY PEÑALOZA MD Ot N93.9 ABNORMAL UTERINE AND VAGINAL BLEEDING, U 01/31/2020 JERZY PEÑALOZA MD Ot Z68.42 BODY MASS INDEX (BMI) 45.0-49.9, ADULT 01/31/2020 JERZY PEÑALOZA MD Ot Z80.0 FAMILY HISTORY OF MALIGNANT NEOPLASM OF 01/31/2020 JERZY PEÑALOZA MD Ot Z88.5 ALLERGY STATUS TO NARCOTIC AGENT STATUS 02/12/2020 JANET CALVERT FACILITY TECHNICIAN Ot Z12.31 ENCNTR SCREEN MAMMOGRAM FOR MALIGNANT NE 02/12/2020 JANET CALVERT FACILITY TECHNICIAN Ot Z53 .8 PROCEDURE AND TREATMENT NOT CARRIED OUT 02/13/2020 JERZY PEÑALOZA MD Ot E66.9 OBESITY, UNSPECIFIED 02/13/2020 JERZY PEÑALOZA MD Ot F17.290 NICOTINE DEPENDENCE, OTHER TOBACCO PRODU 02/13/2020 JERZY PEÑALOZA MD Ot F32.9 MAJOR DEPRESSIVE DISORDER, SINGLE EPISOD 02/13/2020 JERZY PEÑALOZA MD Ot I10 ESSENTIAL (PRIMARY) HYPERTENSION 02/13/2020 JERZY PEÑALOZA MD Ot J45.909 UNSPECIFIED ASTHMA, UNCOMPLICATED 02/13/2020 JERZY PEÑALOZA MD Ot K21.9 GASTRO-ESOPHAGEAL REFLUX DISEASE WITHOUT 02/13/2020 JERZY PEÑALOZA MD Ot N92.0 EXCESSIVE AND FREQUENT MENSTRUATION WITH 02/13/2020 JERZY PEÑALOZA MD Ot N93.9 ABNORMAL UTERINE AND VAGINAL BLEEDING, U 02/13/2020 JERZY PEÑALOZA MD Ot Z68.42 BODY MASS INDEX (BMI) 45.0-49.9, ADULT 02/13/2020 JERZY PEÑALOZA MD Ot Z80.0 FAMILY HISTORY OF MALIGNANT NEOPLASM OF 02/13/2020 JERZY PEÑALOZA MD Ot Z88.5 ALLERGY STATUS TO NARCOTIC AGENT STATUS 02/20/2020 FRANKS, NUZHAT R CFNP Ot N63.15 UNSPECIFIED LUMP IN THE RIGHT BREAST, OV 02/20/2020 FRANKS, NUZHAT R CFNP Ot N63.25 UNSPECIFIED LUMP IN THE LEFT BREAST, OVE 02/20/2020 FRANKS, NUZHAT Frazier CFNP Ot N64.52 NIPPLE DISCHARGE 02/23/2020 FRANKS, NUZHAT R CFNP Ot N63.15 UNSPECIFIED LUMP IN THE RIGHT BREAST, OV 02/23/2020 FRANKS, NUZHAT Frazier CFNP Ot N63.25 UNSPECIFIED LUMP IN THE LEFT BREAST, OVE 02/23/2020 FRANKS, NUZHAT R CFNP Ot N64.52 NIPPLE DISCHARGE 03/04/2020 JH PELLETIER, JERZY Flores Ot E66.9 OBESITY, UNSPECIFIED 03/04/2020 JH PELLETIER, JERZY Flores Ot F17.290 NICOTINE DEPENDENCE, OTHER TOBACCO PRODU 03/04/2020 JERZY PEÑALOZA MD, Ot F32.9 MAJOR DEPRESSIVE DISORDER, SINGLE EPISOD 03/04/2020 JERZY PEÑALOZA MD, Ot I10 ESSENTIAL (PRIMARY) HYPERTENSION 03/04/2020 JH PELLETIER, JERZY Flores Ot J45.909 UNSPECIFIED ASTHMA, UNCOMPLICATED 03/04/2020 JH PELLETIER, JERZY Flores Ot K21.9 GASTRO-ESOPHAGEAL REFLUX DISEASE WITHOUT 03/04/2020 JH PELLETIER, JERZY Flores Ot N92.0 EXCESSIVE AND FREQUENT MENSTRUATION WITH 03/04/2020 JH PELLETIER, JERZY Flores Ot N93.9 ABNORMAL UTERINE AND VAGINAL BLEEDING, U 03/04/2020 JERZY PEÑALOZA MD, Ot Z68.42 BODY MASS INDEX (BMI) 45.0-49.9, ADULT 03/04/2020 JH PELLETIER, JERZY Flores Ot Z80.0 FAMILY HISTORY OF MALIGNANT NEOPLASM OF 03/04/2020 JERZY PEÑALOZA MD, Ot Z88.5 ALLERGY STATUS TO NARCOTIC AGENT STATUS Procedures Code [place] [address] UA L SHIVAM DIP 12/18/2012 09217 MICR O ALBUMIN-IN HOUSE 12/18/2012 00770 WART DESTRUCT 1-14 (CRYO) 02/23/2013 49351 CULT URE UROGENITAL 03/06/2013 18737 SMEA R WET MOUNT SALINE/INK 03/06/2013 05164 GC/C HLAM PROBE (STATE) 03/06/2013 00840 PAP SMEAR 03/06/2013 Q0091 PAP SMEAR OBTAIN SMEAR 03/06/2013 18341 ROUT INE VENIPUNCTURE 03/07/2013 19770 CMP 03/07/2013 27249 LIPI D PANEL 03/07/2013 22109 A1C (RML) 03/07/2013 91029 TSH 03/07/2013 75908 CBC 03/07/2013 31690 IMMU NOTHERAPY, ONE INJECTION 10/03/2014 J1885 EDGARDO DOL INJ 10/03/2014 J2550 PHEN ERGAN INJECTION UP TO 50 MG 10/03/2014 05673 ROUT INE VENIPUNCTURE 11/26/2014 92904 BMP 11/26/2014 26015 MAGNESIUM 11/26/2014 5461801 GF R CALC (RESULT ONLY) 11/26/2014 61065 NAIL REMOVAL SINGLE (COMPLETE OR PARTIAL) 03/04/2015 Results Test Result Range Complete urinalysis with reflex to cultu re - 09/02/16 21:04 Urine color determination YELLOW NRG Urine clarity determination CLEAR NR G Urine pH measurement by test strip 7 5-9 Specific gravity of urine by test strip 1.010 1.016-1.022 Urine protein assay by test strip, semi-quantitative NEGATIVE NEGATIVE Urine glucose detection by automated test strip NE GATIVE NEGATIVE Erythrocytes detection in urine sediment by light micr oscopy 2+ NEGATIVE Urine ketones detection by automated test strip NE GATIVE NEGATIVE Urine nitrite detection by test strip NEGATIVE NEGATIVE Urine total bilirubin detection by test strip NEGA TIVE NEGATIVE Urine urobilinogen measurement by automated test strip (mass/volume) 1 mg/dL NORMAL Urine leukocyte esterase detection by dipstick 3+ NEGATIVE Automated urine sediment erythrocyte cou nt by microscopy (number/high power field) [HPF] NRG Automated urine sediment leukocyte count by microscopy (number/high power field) [HPF] NRG Bacteria detection in urine sediment by light microsco py FEW NRG Squamous epithelial cells detection in u rine sediment by light microscopy 5-10 NRG Crystals detection in urine sediment by light microsco py NONE NRG Casts detection in urine sediment by light microscopy NONE NRG Mucus detection in urine sediment by light microscopy NEGATIVE NRG Complete urinalysis with reflex to culture YES NRG Urine beta human chorionic gonadotropin (hCG) measurement - 09/02/16 21:04 Urine beta human chorionic gonadotropin (hCG) measurem ent NEGATIVE NEGATIVE Bacterial urine culture - 09/02/16 [...] 5-14 Serum or plasma urea nitrogen measurement (mass/volume ) 13 mg/dL 7-18 Serum or plasma creatinine measurement (mass/volume) 0.73 mg/dL 0.60-1.30 Serum or plasma urea nitrogen/creatinine mass ratio 18 NRG Serum or plasma creatinine measurement w ith calculation of estimated glomerular filtration rate > NRG Serum or plasma glucose measurement (mass/volume) 97 mg/dL 70-105 Serum or plasma calcium measurement (mass/volume) 8.7 mg/dL 8.5-10.1 Serum or plasma total bilirubin measurement (mass/volu me) 0.4 mg/dL 0.1-1.0 Serum or plasma alkaline phosphatase ivory surement (enzymatic activity/volume) 73 U/L 40-136 Serum or plasma aspartate aminotransfera se measurement (enzymatic activity/volume) 15 U/L 5-34 Serum or plasma alanine aminotransferase measurement (enzymatic activity/volume) 20 U/L 0-55 Serum or plasma protein measurement (mass/volume) 6.5 g/dL 6.4-8.2 Serum or plasma albumin measurement (mass/volume) 3.9 g/dL 3.2-4.5 Serum or plasma amylase measurement (enz ymatic activity/volume) - 09/02/16 21:40 Serum or plasma amylase measurement (enzymatic activit y/volume) 31 U/L 25-125 Lipase - 09/02/16 21:40 Lipase 26 U/L 8-78 Complete blood count (CBC) with automate d white blood cell (WBC) differential - 09/02/16 21:40 Blood leukocytes automated count (number/volume) 13.7 10*3/uL 4.3-11.0 Blood erythrocytes automated count (number/volume) 4.91 10*6/uL 4.35-5.85 Venous blood hemoglobin measurement (mass/volume) 15.1 g/dL 11.5-16.0 Blood hematocrit (volume fraction) 44 % 35-52 Automated erythrocyte mean corpuscular volume 90 [ foz_us] 80-99 Automated erythrocyte mean corpuscular h emoglobin (mass per erythrocyte) 31 pg 25-34 Automated erythrocyte mean corpuscular h emoglobin concentration measurement (mass/volume) 34 g/dL 32-36 Automated erythrocyte distribution width ratio 13. 0 % 10.0- 14.5 Automated blood platelet count (count/volume) 324 10*3/uL [...] 10*3 1.0-4.0 Blood monocytes automated count (number/volume) 1. 4 10*3 0.0-1.0 Automated eosinophil count 0.4 10*3/uL 0 .0-0.3 Automated blood basophil count (count/volume) 0.1 10*3/uL 0.0-0.1 Complete urinalysis with reflex to cultu re - 09/05/16 16:10 Urine color determination YELLOW NRG Urine clarity determination CLEAR NR G Urine pH measurement by test strip 6 5-9 Specific gravity of urine by test strip 1.015 1.016-1.022 Urine protein assay by test strip, semi-quantitative NEGATIVE NEGATIVE Urine glucose detection by automated test strip NE GATIVE NEGATIVE Erythrocytes detection in urine sediment by light micr oscopy 2+ NEGATIVE Urine ketones detection by automated test strip NE GATIVE NEGATIVE Urine nitrite detection by test strip NEGATIVE NEGATIVE Urine total bilirubin detection by test strip NEGA TIVE NEGATIVE Urine urobilinogen measurement by automated test strip (mass/volume) 1 mg/dL NORMAL Urine leukocyte esterase detection by dipstick 3+ NEGATIVE Automated urine sediment erythrocyte cou nt by microscopy (number/high power field) NONE NRG Automated urine sediment leukocyte count by microscopy (number/high power field) [HPF] NRG Bacteria detection in urine sediment by light microsco py TRACE NRG Squamous epithelial cells detection in u rine sediment by light microscopy 2-5 NRG Crystals detection in urine sediment by light microsco py NONE NRG Casts detection in urine sediment by light microscopy NONE NRG Mucus detection in urine sediment by light microscopy NEGATIVE NRG Complete urinalysis with reflex to culture YES NRG Bacterial urine culture - 09/05/16 16:10 URINE CULTURE RESULTS <10,000/ML NRG Complete blood count (CBC) with automate d white blood cell (WBC) differential - 09/05/16 16:30 Blood leukocytes automated count (number/volume) 11.3 10*3/uL 4.3-11.0 Blood erythrocytes automated count (number/volume) 5.07 10*6/uL 4.35-5.85 Venous blood hemoglobin measurement (mass/volume) 15.7 g/dL 11.5-16.0 Blood hematocrit (volume fraction) 46 % 35-52 Automated erythrocyte mean corpuscular volume 90 [ foz_us] 80-99 Automated erythrocyte mean corpuscular h emoglobin (mass per erythrocyte) 31 pg 25-34 Automated erythrocyte mean corpuscular h emoglobin concentration measurement (mass/volume) 34 g/dL 32-36 Automated erythrocyte distribution width ratio 13. 0 % 10.0- 14.5 Automated blood platelet count (count/volume) 326 10*3/uL [...] 10*3 1.0-4.0 Blood monocytes automated count (number/volume) 0. 7 10*3 0.0-1.0 Automated eosinophil count 0.4 10*3/uL 0 .0-0.3 Automated blood basophil count (count/volume) 0.0 10*3/uL 0.0-0.1 Comprehensive metabolic panel - 09/05/16 16:30 Serum or plasma sodium measurement (moles/volume) 140 mmol/L 135-145 Serum or plasma potassium measurement (moles/volume) 3.6 mmol/L 3.6-5.0 Serum or plasma chloride measurement (moles/volume) 107 mmol/L 98-107 Carbon dioxide 20 mmol/L 21-32 Serum or plasma anion gap determination (moles/volume) 13 mmol/L 5-14 Serum or plasma urea nitrogen measurement (mass/volume ) 10 mg/dL 7-18 Serum or plasma creatinine measurement (mass/volume) 0.67 mg/dL 0.60-1.30 Serum or plasma urea nitrogen/creatinine mass ratio 15 NRG Serum or plasma creatinine measurement w ith calculation of estimated glomerular filtration rate > NRG Serum or plasma glucose measurement (mass/volume) 123 mg/dL 70-105 Serum or plasma calcium measurement (mass/volume) 8.5 mg/dL 8.5-10.1 Serum or plasma total bilirubin measurement (mass/volu me) 0.2 mg/dL 0.1-1.0 Serum or plasma alkaline phosphatase ivory surement (enzymatic activity/volume) 78 U/L 40-136 Serum or plasma aspartate aminotransfera se measurement (enzymatic activity/volume) 18 U/L 5-34 Serum or plasma alanine aminotransferase measurement (enzymatic activity/volume) 21 U/L 0-55 Serum or plasma protein measurement (mass/volume) 6.5 g/dL 6.4-8.2 Serum or plasma albumin measurement (mass/volume) 3.9 g/dL 3.2-4.5 Lipase - 09/05/16 16:30 Lipase 33 U/L 8-78 Complete blood count (CBC) with automate d white blood cell (WBC) differential - 09/06/16 04:25 Blood leukocytes automated count (number/volume) 9.6 10*3/uL 4.3-11.0 Blood erythrocytes automated count (number/volume) 4.25 10*6/uL 4.35-5.85 Venous blood hemoglobin measurement (mass/volume) 13.0 g/dL 11.5-16.0 Blood hematocrit (volume fraction) 39 % 35-52 Automated erythrocyte mean corpuscular volume 93 [ foz_us] 80-99 Automated erythrocyte mean corpuscular h emoglobin (mass per erythrocyte) 31 pg 25-34 Automated erythrocyte mean corpuscular h emoglobin concentration measurement (mass/volume) 33 g/dL 32-36 Automated erythrocyte distribution width ratio 12. 9 % 10.0- 14.5 Automated blood platelet count (count/volume) 304 10*3/uL [...] 10*3 1.0-4.0 Blood monocytes automated count (number/volume) 0. 9 10*3 0.0-1.0 Automated eosinophil count 0.5 10*3/uL 0 .0-0.3 Automated blood basophil count (count/volume) 0.1 10*3/uL 0.0-0.1 Comprehensive metabolic panel - 09/06/16 04:25 Serum or plasma sodium measurement (moles/volume) 140 mmol/L 135-145 Serum or plasma potassium measurement (moles/volume) 3.6 mmol/L 3.6-5.0 Serum or plasma chloride measurement (moles/volume) 111 mmol/L 98-107 Carbon dioxide 20 mmol/L 21-32 Serum or plasma anion gap determination (moles/volume) 9 mmol/L 5-14 Serum or plasma urea nitrogen measurement (mass/volume ) 8 mg/dL 7-18 Serum or plasma creatinine measurement (mass/volume) 0.61 mg/dL 0.60-1.30 Serum or plasma urea nitrogen/creatinine mass ratio 13 NRG Serum or plasma creatinine measurement w ith calculation of estimated glomerular filtration rate > NRG Serum or plasma glucose measurement (mass/volume) 85 mg/dL 70-105 Serum or plasma calcium measurement (mass/volume) 7.4 mg/dL 8.5-10.1 Serum or plasma total bilirubin measurement (mass/volu me) 0.2 mg/dL 0.1-1.0 Serum or plasma alkaline phosphatase ivory surement (enzymatic activity/volume) 57 U/L 40-136 Serum or plasma aspartate aminotransfera se measurement (enzymatic activity/volume) 14 U/L 5-34 Serum or plasma alanine aminotransferase measurement (enzymatic activity/volume) 17 U/L 0-55 Serum or plasma protein measurement (mass/volume) 5.0 g/dL 6.4-8.2 Serum or plasma albumin measurement (mass/volume) 3.1 g/dL 3.2-4.5 Capillary blood glucose measurement by g lucometer (mass/volume) - 09/06/16 11:40 Capillary blood glucose measurement by glucometer (mas s/volume) 101 mg/dL 70-110 Complete blood count (CBC) with automate d white blood cell (WBC) differential - 10/26/16 19:35 Blood leukocytes automated count (number/volume) 10.3 10*3/uL 4.3-11.0 Blood erythrocytes automated count (number/volume) 4.64 10*6/uL 4.35-5.85 Venous blood hemoglobin measurement (mass/volume) 14.4 g/dL 11.5-16.0 Blood hematocrit (volume fraction) 42 % 35-52 Automated erythrocyte mean corpuscular volume 89 [ foz_us] 80-99 Automated erythrocyte mean corpuscular h emoglobin (mass per erythrocyte) 31 pg 25-34 Automated erythrocyte mean corpuscular h emoglobin concentration measurement (mass/volume) 35 g/dL 32-36 Automated erythrocyte distribution width ratio 12. 7 % 10.0- 14.5 Automated blood platelet count (count/volume) 300 10*3/uL [...] 10*3 1.0-4.0 Blood monocytes automated count (number/volume) 0. 8 10*3 0.0-1.0 Automated eosinophil count 0.4 10*3/uL 0 .0-0.3 Automated blood basophil count (count/volume) 0.0 10*3/uL 0.0-0.1 Serum or plasma choriogonadotropin (preg leonor test) detection - 10/26/16 19:35 Serum or plasma choriogonadotropin ( test) de tection NEGATIVE NEGATIVE PT panel in platelet poor plasma by coag ulation assay - 10/26/16 19:35 Prothrombin time (PT) in platelet poor plasma by coagu lation assay 13.2 s 12.2-14.7 INR in platelet poor plasma or blood by coagulation as say 1.0 0.8-1.4 Activated partial thromboplastin time (a PTT) in platelet poor plasma bycoagulation assay - 10/26/16 19:35 Activated partial thromboplastin time (a PTT) in platelet poor plasma bycoagulation assay 28 s 24-35 Comprehensive metabolic panel - 10/26/16 19:35 Serum or plasma sodium measurement (moles/volume) 139 mmol/L 135-145 Serum or plasma potassium measurement (moles/volume) 3.4 mmol/L 3.6-5.0 Serum or plasma chloride measurement (moles/volume) 109 mmol/L 98-107 Carbon dioxide 23 mmol/L 21-32 Serum or plasma anion gap determination (moles/volume) 7 mmol/L 5-14 Serum or plasma urea nitrogen measurement (mass/volume ) 12 mg/dL 7-18 Serum or plasma creatinine measurement (mass/volume) 0.65 mg/dL 0.60-1.30 Serum or plasma urea nitrogen/creatinine mass ratio 18 NRG Serum or plasma creatinine measurement w ith calculation of estimated glomerular filtration rate > NRG Serum or plasma glucose measurement (mass/volume) 133 mg/dL 70-105 Serum or plasma calcium measurement (mass/volume) 8.3 mg/dL 8.5-10.1 Serum or plasma total bilirubin measurement (mass/volu me) 0.2 mg/dL 0.1-1.0 Serum or plasma alkaline phosphatase ivory surement (enzymatic activity/volume) 71 U/L 40-136 Serum or plasma aspartate aminotransfera se measurement (enzymatic activity/volume) 17 U/L 5-34 Serum or plasma alanine aminotransferase measurement (enzymatic activity/volume) 20 U/L 0-55 Serum or plasma protein measurement (mass/volume) 5.9 g/dL 6.4-8.2 Serum or plasma albumin measurement (mass/volume) 3.7 g/dL 3.2-4.5 Magnesium - 10/26/16 19:35 Magnesium 2.0 mg/dL 1.8-2.4 Serum or plasma creatine kinase measurem ent (enzymatic activity/volume) - 10/26/16 19:35 Serum or plasma creatine kinase measurem ent (enzymatic activity/volume) 130 U/L 29-168 Serum or plasma creatine kinase MB measu rement (enzymatic activity/volume) - 10/26/16 19:35 Serum or plasma creatine kinase MB measu rement (enzymatic activity/volume) 1.7 ng/mL <6.6 Serum or plasma troponin i.cardiac measu rement (mass/volume) - 10/26/16 19:35 Serum or plasma troponin i.cardiac measurement (mass/v olume) < ng/mL <0.30 Serum or plasma lithium measurement (mol es/volume) - 10/26/16 19:35 BNP level 53.9 pg/mL <100.0 Serum or plasma amylase measurement (enz ymatic activity/volume) - 10/26/16 19:35 Serum or plasma amylase measurement (enzymatic activit y/volume) 34 U/L 25-125 Lipase - 10/26/16 19:35 Lipase 29 U/L 8-78 Serum or plasma thyrotropin measurement by detection limit <=0.05 miu/l (units/volume) - 10/26/16 19:35 Serum or plasma thyrotropin measurement by detection limit <=0.05 miu/l (units/volume) 0.69 u[iU]/mL 0.35-4.94 Complete blood count (CBC) with automate d white blood cell (WBC) differential - 10/27/16 02:25 Blood leukocytes automated count (number/volume) 9.7 10*3/uL 4.3-11.0 Blood erythrocytes automated count (number/volume) 4.49 10*6/uL 4.35-5.85 Venous blood hemoglobin measurement (mass/volume) 13.7 g/dL 11.5-16.0 Blood hematocrit (volume fraction) 41 % 35-52 Automated erythrocyte mean corpuscular volume 90 [ foz_us] 80-99 Automated erythrocyte mean corpuscular h emoglobin (mass per erythrocyte) 31 pg 25-34 Automated erythrocyte mean corpuscular h emoglobin concentration measurement (mass/volume) 34 g/dL 32-36 Automated erythrocyte distribution width ratio 12. 7 % 10.0- 14.5 Automated blood platelet count (count/volume) 274 10*3/uL [...] 10*3 1.0-4.0 Blood monocytes automated count (number/volume) 0. 8 10*3 0.0-1.0 Automated eosinophil count 0.4 10*3/uL 0 .0-0.3 Automated blood basophil count (count/volume) 0.1 10*3/uL 0.0-0.1 Serum or plasma creatine kinase measurem ent (enzymatic activity/volume) - 10/27/16 02:25 Serum or plasma creatine kinase measurem ent (enzymatic activity/volume) 105 U/L 29-168 Serum or plasma troponin i.cardiac measu rement (mass/volume) - 10/27/16 02:25 Serum or plasma troponin i.cardiac measurement (mass/v olume) < ng/mL <0.30 Myoglobin, serum - 10/27/16 [...] 5-14 Serum or plasma urea nitrogen measurement (mass/volume ) 12 mg/dL 7-18 Serum or plasma creatinine measurement (mass/volume) 0.65 mg/dL 0.60-1.30 Serum or plasma urea nitrogen/creatinine mass ratio 18 NRG Serum or plasma creatinine measurement w ith calculation of estimated glomerular filtration rate > NRG Serum or plasma glucose measurement (mass/volume) 94 mg/dL 70-105 Serum or plasma calcium measurement (mass/volume) 8.0 mg/dL 8.5-10.1 Serum or plasma total bilirubin measurement (mass/volu me) 0.3 mg/dL 0.1-1.0 Serum or plasma alkaline phosphatase ivory surement (enzymatic activity/volume) 65 U/L 40-136 Serum or plasma aspartate aminotransfera se measurement (enzymatic activity/volume) 15 U/L 5-34 Serum or plasma alanine aminotransferase measurement (enzymatic activity/volume) 18 U/L 0-55 Serum or plasma protein measurement (mass/volume) 5.3 g/dL 6.4-8.2 Serum or plasma albumin measurement (mass/volume) 3.4 g/dL 3.2-4.5 Lipid 1996 panel - 10/27/16 02:25 Serum or plasma triglyceride measurement (mass/volume) 80 mg/dL <150 Serum or plasma cholesterol measurement (mass/volume) 136 mg/dL < 200 Serum or plasma cholesterol in HDL measurement (mass/v olume) 32 mg/dL 40-60 Cholesterol in LDL [mass/volume] in serum or plasma by direct assay 97 mg/dL 1-129 Serum or plasma cholesterol in VLDL measurement (mass/ volume) 16 mg/dL 5-40 Serum or plasma creatine kinase measurem ent (enzymatic activity/volume) - 10/27/16 08:49 Serum or plasma creatine kinase measurem ent (enzymatic activity/volume) 106 U/L 29-168 Serum or plasma troponin i.cardiac measu rement (mass/volume) - 10/27/16 08:49 Serum or plasma troponin i.cardiac measurement (mass/v olume) < ng/mL <0.30 Myoglobin, serum - 10/27/16 08:49 Myoglobin, serum 38.4 ng/mL 10.0-92.0 Complete blood count (CBC) with automate d white blood cell (WBC) differential - 12/26/16 01:40 Blood leukocytes automated count (number/volume) 10.9 10*3/uL 4.3-11.0 Blood erythrocytes automated count (number/volume) 4.71 10*6/uL 4.35-5.85 Venous blood hemoglobin measurement (mass/volume) 14.3 g/dL 11.5-16.0 Blood hematocrit (volume fraction) 43 % 35-52 Automated erythrocyte mean corpuscular volume 90 [ foz_us] 80-99 Automated erythrocyte mean corpuscular h emoglobin (mass per erythrocyte) 30 pg 25-34 Automated erythrocyte mean corpuscular h emoglobin concentration measurement (mass/volume) 34 g/dL 32-36 Automated erythrocyte distribution width ratio 13. 3 % 10.0- 14.5 Automated blood platelet count (count/volume) 310 10*3/uL [...] 10*3 1.0-4.0 Blood monocytes automated count (number/volume) 1. 1 10*3 0.0-1.0 Automated eosinophil count 0.5 10*3/uL 0 .0-0.3 Automated blood basophil count (count/volume) 0.0 10*3/uL 0.0-0.1 Fibrin D-dimer FEU measurement in platel et poor plasma (mass/volume) - 12/26/16 01:40 Fibrin D-dimer FEU measurement in platelet [...] 5-14 Serum or plasma urea nitrogen measurement (mass/volume ) 15 mg/dL 7-18 Serum or plasma creatinine measurement (mass/volume) 0.70 mg/dL 0.60-1.30 Serum or plasma urea nitrogen/creatinine mass ratio 21 NRG Serum or plasma creatinine measurement w ith calculation of estimated glomerular filtration rate > NRG Serum or plasma glucose measurement (mass/volume) 109 mg/dL 70-105 Serum or plasma calcium measurement (mass/volume) 8.4 mg/dL 8.5-10.1 Serum or plasma total bilirubin measurement (mass/volu me) 0.2 mg/dL 0.1-1.0 Serum or plasma alkaline phosphatase ivory surement (enzymatic activity/volume) 83 U/L 40-136 Serum or plasma aspartate aminotransfera se measurement (enzymatic activity/volume) 17 U/L 5-34 Serum or plasma alanine aminotransferase measurement (enzymatic activity/volume) 23 U/L 0-55 Serum or plasma protein measurement (mass/volume) 6.2 g/dL 6.4-8.2 Serum or plasma albumin measurement (mass/volume) 3.7 g/dL 3.2-4.5 Serum or plasma C reactive protein measu rement (mass/volume) - 12/26/16 01:40 Serum or plasma C reactive protein measurement (mass/v olume) 1.36 mg/dL 0.00-0.50 Serum or plasma lithium measurement (mol es/volume) - 12/26/16 01:40 BNP level 13.4 pg/mL <100.0 Complete blood count (CBC) with automate d white blood cell (WBC) differential - 03/17/17 10:05 Blood leukocytes automated count (number/volume) 10.4 10*3/uL 4.3-11.0 Blood erythrocytes automated count (number/volume) 5.05 10*6/uL 4.35-5.85 Venous blood hemoglobin measurement (mass/volume) 15.3 g/dL 11.5-16.0 Blood hematocrit (volume fraction) 46 % 35-52 Automated erythrocyte mean corpuscular volume 91 [ foz_us] 80-99 Automated erythrocyte mean corpuscular h emoglobin (mass per erythrocyte) 30 pg 25-34 Automated erythrocyte mean corpuscular h emoglobin concentration measurement (mass/volume) 33 g/dL 32-36 Automated erythrocyte distribution width ratio 13. 3 % 10.0- 14.5 Automated blood platelet count (count/volume) 294 10*3/uL [...] 10*3 1.0-4.0 Blood monocytes automated count (number/volume) 0. 8 10*3 0.0-1.0 Automated eosinophil count 0.3 10*3/uL 0 .0-0.3 Automated blood basophil count (count/volume) 0.1 10*3/uL 0.0-0.1 Methicillin resistant Staphylococcus aur eus (MRSA) screening culture - 03/17/17 10:05 Methicillin resistant Staphylococcus aureus (MRSA) scr eening culture NEG NRG Urine beta human chorionic gonadotropin (hCG) measurement - 03/24/17 08:00 Urine beta human chorionic gonadotropin (hCG) measurem ent NEGATIVE NEGATIVE Complete urinalysis with reflex to cultu re - 04/06/17 14:46 Urine color determination YELLOW NRG Urine clarity determination SLIGHTLY CLOUDY NRG Urine pH measurement by test strip 6 5-9 Specific gravity of urine by test strip 1.015 1.016-1.022 Urine protein assay by test strip, semi-quantitative 1+ NEGATIVE Urine glucose detection by automated test strip NE GATIVE NEGATIVE Erythrocytes detection in urine sediment by light micr oscopy 3+ NEGATIVE Urine ketones detection by automated test strip NE GATIVE NEGATIVE Urine nitrite detection by test strip NEGATIVE NEGATIVE Urine total bilirubin detection by test strip NEGA TIVE NEGATIVE Urine urobilinogen measurement by automated test strip (mass/volume) NORMAL NORMAL Urine leukocyte esterase detection by dipstick 1+ NEGATIVE Automated urine sediment erythrocyte cou nt by microscopy (number/high power field) [HPF] NRG Automated urine sediment leukocyte count by microscopy (number/high power field) [HPF] NRG Bacteria detection in urine sediment by light microsco py TRACE NRG Squamous epithelial cells detection in u rine sediment by light microscopy 5-10 NRG Crystals detection in urine sediment by light microsco py NONE NRG Casts detection in urine sediment by light microscopy NONE NRG Mucus detection in urine sediment by light microscopy NEGATIVE NRG Complete urinalysis with reflex to culture NO NRG Complete blood count (CBC) with automate d white blood cell (WBC) differential - 04/06/17 15:15 Blood leukocytes automated count (number/volume) 16.2 10*3/uL 4.3-11.0 Blood erythrocytes automated count (number/volume) 5.23 10*6/uL 4.35-5.85 Venous blood hemoglobin measurement (mass/volume) 15.8 g/dL 11.5-16.0 Blood hematocrit (volume fraction) 47 % 35-52 Automated erythrocyte mean corpuscular volume 91 [ foz_us] 80-99 Automated erythrocyte mean corpuscular h emoglobin (mass per erythrocyte) 30 pg 25-34 Automated erythrocyte mean corpuscular h emoglobin concentration measurement (mass/volume) 33 g/dL 32-36 Automated erythrocyte distribution width ratio 13. 1 % 10.0- 14.5 Automated blood platelet count (count/volume) 332 10*3/uL [...] 10*3 1.0-4.0 Blood monocytes automated count (number/volume) 1. 2 10*3 0.0-1.0 Automated eosinophil count 0.3 10*3/uL 0 .0-0.3 Automated blood basophil count (count/volume) 0.1 10*3/uL 0.0-0.1 Blood manual differential performed dete ction - 04/06/17 15:15 Blood monocytes/100 leukocytes 1 % NRG Manual blood segmented neutrophils/100 leukocytes 64 % NRG Blood band neutrophils/100 leukocytes 0 % NRG Manual blood lymphocytes/100 leukocytes 31 % NRG Manual eosinophils/100 leukocytes in nose 4 % NRG Manual blood basophils/100 leukocytes 0 % NRG Blood erythrocyte morphology finding identification NORMAL [facility] Comprehensive metabolic panel - 04/06/17 15:15 Serum or plasma sodium measurement (moles/volume) 140 mmol/L 135-145 Serum or plasma potassium measurement (moles/volume) 4.0 mmol/L 3.6-5.0 Serum or plasma chloride measurement (moles/volume) 106 mmol/L 98-107 Carbon dioxide 27 mmol/L 21-32 Serum or plasma anion gap determination (moles/volume) 7 mmol/L 5-14 Serum or plasma urea nitrogen measurement (mass/volume ) 10 mg/dL 7-18 Serum or plasma creatinine measurement (mass/volume) 0.73 mg/dL 0.60-1.30 Serum or plasma urea nitrogen/creatinine mass ratio 14 NRG Serum or plasma creatinine measurement w ith calculation of estimated glomerular filtration rate > NRG Serum or plasma glucose measurement (mass/volume) 100 mg/dL 70-105 Serum or plasma calcium measurement (mass/volume) 9.0 mg/dL 8.5-10.1 Serum or plasma total bilirubin measurement (mass/volu me) 0.4 mg/dL 0.1-1.0 Serum or plasma alkaline phosphatase ivory surement (enzymatic activity/volume) 85 U/L 40-136 Serum or plasma aspartate aminotransfera se measurement (enzymatic activity/volume) 15 U/L 5-34 Serum or plasma alanine aminotransferase measurement (enzymatic activity/volume) 26 U/L 0-55 Serum or plasma protein measurement (mass/volume) 7.0 g/dL 6.4-8.2 Serum or plasma albumin measurement (mass/volume) 4.1 g/dL 3.2-4.5 Serum or plasma amylase measurement (enz ymatic activity/volume) - 04/06/17 15:15 Serum or plasma amylase measurement (enzymatic activit y/volume) 33 U/L 25-125 Lipase - 04/06/17 15:15 Lipase 16 U/L 8-78 Complete blood count (CBC) with automate d white blood cell (WBC) differential - 04/07/17 05:48 Blood leukocytes automated count (number/volume) 13.4 10*3/uL 4.3-11.0 Blood erythrocytes automated count (number/volume) 4.50 10*6/uL 4.35-5.85 Venous blood hemoglobin measurement (mass/volume) 13.6 g/dL 11.5-16.0 Blood hematocrit (volume fraction) 42 % 35-52 Automated erythrocyte mean corpuscular volume 93 [ foz_us] 80-99 Automated erythrocyte mean corpuscular h emoglobin (mass per erythrocyte) 30 pg 25-34 Automated erythrocyte mean corpuscular h emoglobin concentration measurement (mass/volume) 33 g/dL 32-36 Automated erythrocyte distribution width ratio 13. 2 % 10.0- 14.5 Automated blood platelet count (count/volume) 293 10*3/uL [...] 10*3 1.0-4.0 Blood monocytes automated count (number/volume) 1. 2 10*3 0.0-1.0 Automated eosinophil count 0.2 10*3/uL 0 .0-0.3 Automated blood basophil count (count/volume) 0.0 10*3/uL 0.0-0.1 Comprehensive metabolic panel - 04/07/17 05:48 Serum or plasma sodium measurement (moles/volume) 136 mmol/L 135-145 Serum or plasma potassium measurement (moles/volume) 3.7 mmol/L 3.6-5.0 Serum or plasma chloride measurement (moles/volume) 105 mmol/L 98-107 Carbon dioxide 23 mmol/L 21-32 Serum or plasma anion gap determination (moles/volume) 8 mmol/L 5-14 Serum or plasma urea nitrogen measurement (mass/volume ) 9 mg/dL 7-18 Serum or plasma creatinine measurement (mass/volume) 0.67 mg/dL 0.60-1.30 Serum or plasma urea nitrogen/creatinine mass ratio 13 NRG Serum or plasma creatinine measurement w ith calculation of estimated glomerular filtration rate > NRG Serum or plasma glucose measurement (mass/volume) 134 mg/dL 70-105 Serum or plasma calcium measurement (mass/volume) 8.0 mg/dL 8.5-10.1 Serum or plasma total bilirubin measurement (mass/volu me) 0.6 mg/dL 0.1-1.0 Serum or plasma alkaline phosphatase ivory surement (enzymatic activity/volume) 67 U/L 40-136 Serum or plasma aspartate aminotransfera se measurement (enzymatic activity/volume) 9 U/L 5-34 Serum or plasma alanine aminotransferase measurement (enzymatic activity/volume) 19 U/L 0-55 Serum or plasma protein measurement (mass/volume) 5.7 g/dL 6.4-8.2 Serum or plasma albumin measurement (mass/volume) 3.4 g/dL 3.2-4.5 Urine beta human chorionic gonadotropin (hCG) measurement - 05/17/17 07:45 Urine beta human chorionic gonadotropin (hCG) measurem ent NEGATIVE NEGATIVE Complete blood count (CBC) with automate d white blood cell (WBC) differential - 09/12/17 12:42 Blood leukocytes automated count (number/volume) 12.0 10*3/uL 4.3-11.0 Blood erythrocytes automated count (number/volume) 4.83 10*6/uL 4.35-5.85 Venous blood hemoglobin measurement (mass/volume) 14.6 g/dL 11.5-16.0 Blood hematocrit (volume fraction) 44 % 35-52 Automated erythrocyte mean corpuscular volume 92 [ foz_us] 80-99 Automated erythrocyte mean corpuscular h emoglobin (mass per erythrocyte) 30 pg 25-34 Automated erythrocyte mean corpuscular h emoglobin concentration measurement (mass/volume) 33 g/dL 32-36 Automated erythrocyte distribution width ratio 13. 3 % 10.0- 14.5 Automated blood platelet count (count/volume) 299 10*3/uL [...] 10*3 1.0-4.0 Blood monocytes automated count (number/volume) 0. 6 10*3 0.0-1.0 Automated eosinophil count 0.3 10*3/uL 0 .0-0.3 Automated blood basophil count (count/volume) 0.0 10*3/uL 0.0-0.1 Comprehensive metabolic panel - 09/12/17 12:42 Serum or plasma sodium measurement (moles/volume) 136 mmol/L 135-145 Serum or plasma potassium measurement (moles/volume) 3.8 mmol/L 3.6-5.0 Serum or plasma chloride measurement (moles/volume) 103 mmol/L 98-107 Carbon dioxide 26 mmol/L 21-32 Serum or plasma anion gap determination (moles/volume) 7 mmol/L 5-14 Serum or plasma urea nitrogen measurement (mass/volume ) 8 mg/dL 7-18 Serum or plasma creatinine measurement (mass/volume) 0.68 mg/dL 0.60-1.30 Serum or plasma urea nitrogen/creatinine mass ratio 12 NRG Serum or plasma creatinine measurement w ith calculation of estimated glomerular filtration rate > NRG Serum or plasma glucose measurement (mass/volume) 171 mg/dL 70-105 Serum or plasma calcium measurement (mass/volume) 8.7 mg/dL 8.5-10.1 Serum or plasma total bilirubin measurement (mass/volu me) 0.2 mg/dL 0.1-1.0 Serum or plasma alkaline phosphatase ivory surement (enzymatic activity/volume) 79 U/L 40-136 Serum or plasma aspartate aminotransfera se measurement (enzymatic activity/volume) 20 U/L 5-34 Serum or plasma alanine aminotransferase measurement (enzymatic activity/volume) 27 U/L 0-55 Serum or plasma protein measurement (mass/volume) 6.3 g/dL 6.4-8.2 Serum or plasma albumin measurement (mass/volume) 3.6 g/dL 3.2-4.5 Serum or plasma C reactive protein measu rement (mass/volume) - 09/12/17 12:42 Serum or plasma C reactive protein measurement (mass/v olume) 2.30 mg/dL 0.00-0.50 Complete urinalysis with reflex to cultu re - 09/12/17 13:16 Urine color determination YELLOW NRG Urine clarity determination CLEAR NR G Urine pH measurement by test strip 8 5-9 Specific gravity of urine by test strip 1.010 1.016-1.022 Urine protein assay by test strip, semi-quantitative NEGATIVE NEGATIVE Urine glucose detection by automated test strip NE GATIVE NEGATIVE Erythrocytes detection in urine sediment by light micr oscopy NEGATIVE NEGATIVE Urine ketones detection by automated test strip NE GATIVE NEGATIVE Urine nitrite detection by test strip NEGATIVE NEGATIVE Urine total bilirubin detection by test strip NEGA TIVE NEGATIVE Urine urobilinogen measurement by automated test strip (mass/volume) NORMAL NORMAL Urine leukocyte esterase detection by dipstick 2+ NEGATIVE Automated urine sediment erythrocyte cou nt by microscopy (number/high power field) RARE NRG Automated urine sediment leukocyte count by microscopy (number/high power field) [HPF] NRG Bacteria detection in urine sediment by light microsco py TRACE NRG Squamous epithelial cells detection in u rine sediment by light microscopy 5-10 NRG Crystals detection in urine sediment by light microsco py NONE NRG Casts detection in urine sediment by light microscopy NONE NRG Mucus detection in urine sediment by light microscopy NEGATIVE NRG Complete urinalysis with reflex to culture NO NRG Blood lactic acid measurement (moles/vol ume) - 09/12/17 14:45 Blood lactic acid measurement (moles/volume) 1.00 mmol/L 0.50-2.00 Bacterial blood culture - 09/12/17 14:45 QUANTITY OF GROWTH Isolated NRG Bacterial blood culture [id number] NRG Bacterial blood culture - 09/12/17 15:30 Bacterial blood culture NG NRG Complete blood count (CBC) with automate d white blood cell (WBC) differential - 09/13/17 05:32 Blood leukocytes automated count (number/volume) 10.1 10*3/uL 4.3-11.0 Blood erythrocytes automated count (number/volume) 4.22 10*6/uL 4.35-5.85 Venous blood hemoglobin measurement (mass/volume) 12.7 g/dL 11.5-16.0 Blood hematocrit (volume fraction) 40 % 35-52 Automated erythrocyte mean corpuscular volume 95 [ foz_us] 80-99 Automated erythrocyte mean corpuscular h emoglobin (mass per erythrocyte) 30 pg 25-34 Automated erythrocyte mean corpuscular h emoglobin concentration measurement (mass/volume) 32 g/dL 32-36 Automated erythrocyte distribution width ratio 13. 5 % 10.0- 14.5 Automated blood platelet count (count/volume) 263 10*3/uL [...] 10*3 1.0-4.0 Blood monocytes automated count (number/volume) 0. 8 10*3 0.0-1.0 Automated eosinophil count 0.5 10*3/uL 0 .0-0.3 Automated blood basophil count (count/volume) 0.0 10*3/uL 0.0-0.1 Comprehensive metabolic panel - 09/13/17 05:32 Serum or plasma sodium measurement (moles/volume) 139 mmol/L 135-145 Serum or plasma potassium measurement (moles/volume) 4.1 mmol/L 3.6-5.0 Serum or plasma chloride measurement (moles/volume) 107 mmol/L 98-107 Carbon dioxide 24 mmol/L 21-32 Serum or plasma anion gap determination (moles/volume) 8 mmol/L 5-14 Serum or plasma urea nitrogen measurement (mass/volume ) 9 mg/dL 7-18 Serum or plasma creatinine measurement (mass/volume) 0.69 mg/dL 0.60-1.30 Serum or plasma urea nitrogen/creatinine mass ratio 13 NRG Serum or plasma creatinine measurement w ith calculation of estimated glomerular filtration rate > NRG Serum or plasma glucose measurement (mass/volume) 92 mg/dL 70-105 Serum or plasma calcium measurement (mass/volume) 7.5 mg/dL 8.5-10.1 Serum or plasma total bilirubin measurement (mass/volu me) 0.3 mg/dL 0.1-1.0 Serum or plasma alkaline phosphatase ivory surement (enzymatic activity/volume) 70 U/L 40-136 Serum or plasma aspartate aminotransfera se measurement (enzymatic activity/volume) 43 U/L 5-34 Serum or plasma alanine aminotransferase measurement (enzymatic activity/volume) 50 U/L 0-55 Serum or plasma protein measurement (mass/volume) 5.5 g/dL 6.4-8.2 Serum or plasma albumin measurement (mass/volume) 3.1 g/dL 3.2-4.5 Automated blood complete blood count (he mogram) panel - 01/27/18 11:15 Blood leukocytes automated count (number/volume) 10.5 10*3/uL 4.3-11.0 Blood erythrocytes automated count (number/volume) 4.95 10*6/uL 4.35-5.85 Venous blood hemoglobin measurement (mass/volume) 15.1 g/dL 11.5-16.0 Blood hematocrit (volume fraction) 45 % 35-52 Automated erythrocyte mean corpuscular volume 90 [ foz_us] 80-99 Automated erythrocyte mean corpuscular h emoglobin (mass per erythrocyte) 31 pg 25-34 Automated erythrocyte mean corpuscular h emoglobin concentration measurement (mass/volume) 34 g/dL 32-36 Automated erythrocyte distribution width ratio 13. 5 % 10.0- 14.5 Automated blood platelet count (count/volume) 274 10*3/uL [...] 5-14 Serum or plasma urea nitrogen measurement (mass/volume ) 12 mg/dL 7-18 Serum or plasma creatinine measurement (mass/volume) 0.68 mg/dL 0.60-1.30 Serum or plasma urea nitrogen/creatinine mass ratio 18 NRG Serum or plasma creatinine measurement w ith calculation of estimated glomerular filtration rate > NRG Serum or plasma glucose measurement (mass/volume) 130 mg/dL 70-105 Serum or plasma calcium measurement (mass/volume) 8.3 mg/dL 8.5-10.1 Serum or plasma total bilirubin measurement (mass/volu me) 0.4 mg/dL 0.1-1.0 Serum or plasma alkaline phosphatase ivory surement (enzymatic activity/volume) 83 U/L 40-136 Serum or plasma aspartate aminotransfera se measurement (enzymatic activity/volume) 16 U/L 5-34 Serum or plasma alanine aminotransferase measurement (enzymatic activity/volume) 26 U/L 0-55 Serum or plasma protein measurement (mass/volume) 6.0 g/dL 6.4-8.2 Serum or plasma albumin measurement (mass/volume) 3.6 g/dL 3.2-4.5 Serum or plasma creatine kinase MB measu rement (enzymatic activity/volume) - 01/27/18 11:15 Serum or plasma creatine kinase MB measu rement (enzymatic activity/volume) 1.0 ng/mL <6.6 Serum or plasma troponin i.cardiac measu rement (mass/volume) - 01/27/18 11:15 Serum or plasma troponin i.cardiac measurement (mass/v olume) < ng/mL <0.30 Lipase - 01/27/18 11:15 Lipase 25 U/L 8-78 Complete blood count (CBC) with automate d white blood cell (WBC) differential - 01/30/18 20:45 Blood leukocytes automated count (number/volume) 12.0 10*3/uL 4.3-11.0 Blood erythrocytes automated count (number/volume) 4.71 10*6/uL 4.35-5.85 Venous blood hemoglobin measurement (mass/volume) 14.6 g/dL 11.5-16.0 Blood hematocrit (volume fraction) 43 % 35-52 Automated erythrocyte mean corpuscular volume 91 [ foz_us] 80-99 Automated erythrocyte mean corpuscular h emoglobin (mass per erythrocyte) 31 pg 25-34 Automated erythrocyte mean corpuscular h emoglobin concentration measurement (mass/volume) 34 g/dL 32-36 Automated erythrocyte distribution width ratio 13. 4 % 10.0- 14.5 Automated blood platelet count (count/volume) 280 10*3/uL [...] 10*3 1.0-4.0 Blood monocytes automated count (number/volume) 0. 7 10*3 0.0-1.0 Automated eosinophil count 0.4 10*3/uL 0 .0-0.3 Automated blood basophil count (count/volume) 0.1 10*3/uL 0.0-0.1 Comprehensive metabolic panel - 01/30/18 20:45 Serum or plasma sodium measurement (moles/volume) 142 mmol/L 135-145 Serum or plasma potassium measurement (moles/volume) 3.5 mmol/L 3.6-5.0 Serum or plasma chloride measurement (moles/volume) 108 mmol/L 98-107 Carbon dioxide 26 mmol/L 21-32 Serum or plasma anion gap determination (moles/volume) 8 mmol/L 5-14 Serum or plasma urea nitrogen measurement (mass/volume ) 10 mg/dL 7-18 Serum or plasma creatinine measurement (mass/volume) 0.76 mg/dL 0.60-1.30 Serum or plasma urea nitrogen/creatinine mass ratio 13 NRG Serum or plasma creatinine measurement w ith calculation of estimated glomerular filtration rate > NRG Serum or plasma glucose measurement (mass/volume) 163 mg/dL 70-105 Serum or plasma calcium measurement (mass/volume) 8.5 mg/dL 8.5-10.1 Serum or plasma total bilirubin measurement (mass/volu me) 0.2 mg/dL 0.1-1.0 Serum or plasma alkaline phosphatase ivory surement (enzymatic activity/volume) 120 U/L 40-136 Serum or plasma aspartate aminotransfera se measurement (enzymatic activity/volume) 21 U/L 5-34 Serum or plasma alanine aminotransferase measurement (enzymatic activity/volume) 28 U/L 0-55 Serum or plasma protein measurement (mass/volume) 6.4 g/dL 6.4-8.2 Serum or plasma albumin measurement (mass/volume) 3.7 g/dL 3.2-4.5 Serum or plasma troponin i.cardiac measu rement (mass/volume) - 01/30/18 20:45 Serum or plasma troponin i.cardiac measurement (mass/v olume) < ng/mL <0.30 Lipase - 01/30/18 20:45 Lipase 34 U/L 8-78 LIPID PANEL - 02/06/18 10:23 CHOLESTEROL, TOTAL 145 mg/dL <200 HDL CHOLESTEROL 34 mg/dL >50 TRIGLYCERIDES 100 mg/dL <150 LDL-CHOLESTEROL 91 mg/dL (calc) NRG CHOL/HDLC RATIO 4.3 (calc) <5.0 NON HDL CHOLESTEROL 111 mg/dL (calc) <13 0 CMP - 02/06/18 10:23 GLUCOSE 147 mg/dL 65-99 UREA NITROGEN (BUN) 14 mg/dL 7-25 CREATININE 0.67 mg/dL 0.50-1.10 eGFR NON-AFR. TANZANIAN 111 mL/min/1.73m2 > OR = 60 eGFR 128 mL/min/1.73m2 > OR = 60 BUN/CREATININE RATIO NOT APPLICABLE (calc) 6-22 SODIUM 138 mmol/L 135-146 POTASSIUM 4.3 mmol/L 3.5-5.3 CHLORIDE 102 mmol/L 98-110 CARBON DIOXIDE 29 mmol/L 20-31 CALCIUM 8.6 mg/dL 8.6-10.2 PROTEIN, TOTAL 6.2 g/dL 6.1-8.1 ALBUMIN 3.9 g/dL 3.6-5.1 GLOBULIN 2.3 g/dL (calc) 1.9-3.7 ALBUMIN/GLOBULIN RATIO 1.7 (calc) 1.0-2. 5 BILIRUBIN, TOTAL 0.4 mg/dL 0.2-1.2 ALKALINE PHOSPHATASE 85 U/L 33-115 AST 15 U/L 10-30 ALT 21 U/L 6-29 MAGNESIUM SERUM - 02/06/18 10:23 MAGNESIUM 2.0 mg/dL 1.5-2.5 CBC - 02/06/18 10:23 WHITE BLOOD CELL COUNT 10.1 Thousand/uL 3.8-10.8 RED BLOOD CELL COUNT 5.01 Million/uL 3.8 0-5.10 HEMOGLOBIN 15.1 g/dL 11.7-15.5 HEMATOCRIT 45.6 % 35.0-45.0 MCV 91.0 fL 80.0-100.0 MCH 30.1 pg 27.0-33.0 MCHC 33.1 g/dL 32.0-36.0 RDW 13.0 % 11.0-15.0 PLATELET COUNT 303 Thousand/uL 140-400 MPV 10.6 fL 7.5-12.5 ABSOLUTE NEUTROPHILS 6828 cells/uL 1500- 7800 ABSOLUTE LYMPHOCYTES 2262 cells/uL 850-3 900 ABSOLUTE MONOCYTES 566 cells/uL 200-950 ABSOLUTE EOSINOPHILS 394 cells/uL 15-500 ABSOLUTE BASOPHILS 51 cells/uL 0-200 NEUTROPHILS 67.6 % NRG LYMPHOCYTES 22.4 % NRG MONOCYTES 5.6 % NRG EOSINOPHILS 3.9 % NRG BASOPHILS 0.5 % NRG TSH - 02/06/18 10:23 TSH 0.95 mIU/L NRG Complete urinalysis with reflex to cultu re - 03/31/18 11:22 Urine color determination YELLOW NRG Urine clarity determination CLEAR NR G Urine pH measurement by test strip 6 5-9 Specific gravity of urine by test strip 1.015 1.016-1.022 Urine protein assay by test strip, semi-quantitative 1+ NEGATIVE Urine glucose detection by automated test strip NE GATIVE NEGATIVE Erythrocytes detection in urine sediment by light micr oscopy 4+ NEGATIVE Urine ketones detection by automated test strip NE GATIVE NEGATIVE Urine nitrite detection by test strip NEGATIVE NEGATIVE Urine total bilirubin detection by test strip NEGA TIVE NEGATIVE Urine urobilinogen measurement by automated test strip (mass/volume) NORMAL NORMAL Urine leukocyte esterase detection by dipstick 2+ NEGATIVE Automated urine sediment erythrocyte cou nt by microscopy (number/high power field) [HPF] NRG Automated urine sediment leukocyte count by microscopy (number/high power field) [HPF] NRG Bacteria detection in urine sediment by light microsco py FEW NRG Squamous epithelial cells detection in u rine sediment by light microscopy 2-5 NRG Crystals detection in urine sediment by light microsco py NONE NRG Casts detection in urine sediment by light microscopy NONE NRG Mucus detection in urine sediment by light microscopy NEGATIVE NRG Complete urinalysis with reflex to culture YES NRG Bacterial urine culture - 03/31/18 11:22 URINE CULTURE RESULTS <10,000/ML NRG Complete blood count (CBC) with automate d white blood cell (WBC) differential - 03/31/18 11:30 Blood leukocytes automated count (number/volume) 15.0 10*3/uL 4.3-11.0 Blood erythrocytes automated count (number/volume) 4.83 10*6/uL 4.35-5.85 Venous blood hemoglobin measurement (mass/volume) 15.0 g/dL 11.5-16.0 Blood hematocrit (volume fraction) 44 % 35-52 Automated erythrocyte mean corpuscular volume 91 [ foz_us] 80-99 Automated erythrocyte mean corpuscular h emoglobin (mass per erythrocyte) 31 pg 25-34 Automated erythrocyte mean corpuscular h emoglobin concentration measurement (mass/volume) 34 g/dL 32-36 Automated erythrocyte distribution width ratio 13. 6 % 10.0- 14.5 Automated blood platelet count (count/volume) 283 10*3/uL [...] 10*3 1.0-4.0 Blood monocytes automated count (number/volume) 1. 1 10*3 0.0-1.0 Automated eosinophil count 0.2 10*3/uL 0 .0-0.3 Automated blood basophil count (count/volume) 0.0 10*3/uL 0.0-0.1 Comprehensive metabolic panel - 03/31/18 11:30 Serum or plasma sodium measurement (moles/volume) 138 mmol/L 135-145 Serum or plasma potassium measurement (moles/volume) 4.0 mmol/L 3.6-5.0 Serum or plasma chloride measurement (moles/volume) 107 mmol/L 98-107 Carbon dioxide 23 mmol/L 21-32 Serum or plasma anion gap determination (moles/volume) 8 mmol/L 5-14 Serum or plasma urea nitrogen measurement (mass/volume ) 6 mg/dL 7-18 Serum or plasma creatinine measurement (mass/volume) 0.58 mg/dL 0.60-1.30 Serum or plasma urea nitrogen/creatinine mass ratio 10 NRG Serum or plasma creatinine measurement w ith calculation of estimated glomerular filtration rate > NRG Serum or plasma glucose measurement (mass/volume) 108 mg/dL 70-105 Serum or plasma calcium measurement (mass/volume) 8.3 mg/dL 8.5-10.1 Serum or plasma total bilirubin measurement (mass/volu me) 0.7 mg/dL 0.1-1.0 Serum or plasma alkaline phosphatase ivory surement (enzymatic activity/volume) 87 U/L 40-136 Serum or plasma aspartate aminotransfera se measurement (enzymatic activity/volume) 19 U/L 5-34 Serum or plasma alanine aminotransferase measurement (enzymatic activity/volume) 28 U/L 0-55 Serum or plasma protein measurement (mass/volume) 6.0 g/dL 6.4-8.2 Serum or plasma albumin measurement (mass/volume) 3.9 g/dL 3.2-4.5 Blood manual differential performed dete ction - 03/31/18 11:30 Blood monocytes/100 leukocytes 6 [...] CONSISTENT NRG Prescribed Drug 2 Tramadol NRG CBC - 01/11/20 13:14 WHITE BLOOD CELL COUNT 10.4 Thousand/uL 3.8-10.8 RED BLOOD CELL COUNT 4.68 Million/uL 3.8 0-5.10 HEMOGLOBIN 14.5 g/dL 11.7-15.5 HEMATOCRIT 42.5 % 35.0-45.0 MCV 90.8 fL 80.0-100.0 MCH 31.0 pg 27.0-33.0 MCHC 34.1 g/dL 32.0-36.0 RDW 12.8 % 11.0-15.0 PLATELET COUNT 366 Thousand/uL 140-400 MPV 10.4 fL 7.5-12.5 ABSOLUTE NEUTROPHILS 6833 cells/uL 1500- 7800 ABSOLUTE LYMPHOCYTES 2496 cells/uL 850-3 900 ABSOLUTE MONOCYTES 593 cells/uL 200-950 ABSOLUTE EOSINOPHILS 416 cells/uL 15-500 ABSOLUTE BASOPHILS 62 cells/uL 0-200 NEUTROPHILS 65.7 % NRG LYMPHOCYTES 24.0 % NRG MONOCYTES 5.7 % NRG EOSINOPHILS 4.0 % NRG BASOPHILS 0.6 % NRG Complete blood count (CBC) with automate d white blood cell (WBC) differential - 01/28/20 16:05 Blood leukocytes automated count (number/volume) 9.3 10*3/uL 4.3-11.0 Blood erythrocytes automated count (number/volume) 4.72 10*6/uL 4.35-5.85 Venous blood hemoglobin measurement (mass/volume) 14.2 g/dL 11.5-16.0 Blood hematocrit (volume fraction) 44 % 35-52 Automated erythrocyte mean corpuscular volume 92 [ foz_us] 80-99 Automated erythrocyte mean corpuscular h emoglobin (mass per erythrocyte) 30 pg 25-34 Automated erythrocyte mean corpuscular h emoglobin concentration measurement (mass/volume) 33 g/dL 32-36 Automated erythrocyte distribution width ratio 13. 4 % 10.0- 14.5 Automated blood platelet count (count/volume) 334 10*3/uL 130-400 Automated blood platelet mean volume measurement 10.3 [foz_us] 7.4-10.4 Automated blood neutrophils/100 leukocytes 59 % 42-75 Automated blood lymphocytes/100 leukocytes 28 % 12-44 Blood monocytes/100 leukocytes 9 % 0-12 Automated blood eosinophils/100 leukocytes 4 % 0-10 Automated blood basophils/100 leukocytes 0 % 0-10 Blood neutrophils automated count (number/volume) 5.5 10*3 1.8-7.8 Blood lymphocytes automated count (number/volume) 2.6 10*3 1.0-4.0 Blood monocytes automated count (number/volume) 0. 8 10*3 0.0-1.0 Automated eosinophil count 0.4 10*3/uL 0 .0-0.3 Automated blood basophil count (count/volume) 0.0 10*3/uL 0.0-0.1 PT panel in platelet poor plasma by coag ulation assay - 01/28/20 16:05 Prothrombin time (PT) in platelet poor plasma by coagu lation assay 12.7 s 12.2-14.7 INR in platelet poor plasma or blood by coagulation as say 0.9 0.8-1.4 Serum or plasma thyrotropin measurement by detection limit <=0.05 miu/l (units/volume) - 01/28/20 16:05 Serum or plasma thyrotropin measurement by detection limit <=0.05 miu/l (units/volume) 1.72 u[iU]/mL 0.35-4.94 Serum or plasma choriogonadotropin (preg leonor test) detection - 01/28/20 16:05 Serum or plasma choriogonadotropin ( test) de tection NEGATIVE NEGATIVE Encounters ACCT No. Visit Date/Time Discharge Status Pt. Type Provider Facility Loc./Unit Complaint [id number] 03/04/2015 13:00:00 03/04/2015 23:59: 59 CLS Outpatient TYLER GAN MD [id number] 12/03/2014 08:41:00 12/03/2014 23:59: 59 CLS Outpatient CORBY WALTERS DO [id number] 10/03/2014 14:53:00 10/03/2014 23:59: 59 CLS Outpatient CORBY WALTERS DO [id number] 08/05/2014 00:00:00 08/05/2014 23:59: 59 CLS Outpatient KATELYN AYALA DDS [id number] 06/25/2014 16:28:00 06/25/2014 23:59: 59 CLS Outpatient CORBY WALTERS DO [id number] 01/24/2014 15:30:00 01/24/2014 23:59: 59 CLS Outpatient NUZHAT FRANKS APRN [id number] 03/07/2013 08:40:00 03/07/2013 23:59: 59 CLS Outpatient FAUZIA VALLADARES MD [id number] 03/06/2013 13:23:00 03/06/2013 23:59: 59 CLS Outpatient [id number] 02/23/2013 08:44:00 02/23/2013 23:59: 59 CLS Outpatient [id number] 12/25/2012 14:09:00 12/25/2012 23:59: 59 CLS Outpatient NUZHAT FRANKS APRN [id number] 03/19/2013 14:36:00 Document Registration [id number] 02/14/2020 14:00:00 23:59:59 CLS Outpatient NUZHAT FRANKS CFNP [facility] RAD UNSPECIFIED LUM P IN LT BREAST [id number] 02/07/2020 10:53:00 23:59:59 CLS Outpatient JANET CALVERT APRN [facility] RAD SCREENING [id number] 01/28/2020 15:04:00 17:49:00 DIS Outpatient JERZY PEÑALOZA MD [facility] ER EXCESSIVE MENST RAL BLEEDING [id number] 10/22/2018 14:42:00 018 15:42:00 DIS Emergency AMY BENSON APRN [facility] ER L HAND BLEEDING THROUGH DRESSING, HERE LAST NIGHT [id number] 10/21/2018 16:59:00 018 21:25:00 DIS Emergency AMY BENSON APRN [facility] ER L HAND INJ BY LOG SPLIT TER [id number] 09/26/2018 10:06:00 018 12:18:00 DIS Emergency QUITA HOSSEIN GLASS ETCHER [facility] ER TOOTH PAIN [id number] 08/08/2018 08:33:00 018 23:59:59 CLS Outpatient COSTA JEFFRIES [facility] CARD I10 [id number] 08/04/2018 07:34:00 018 23:59:59 CLS Outpatient COSTA JEFFRIES [facility] CARD ESSENTIAL HTN,O THER CHEST PAIN,DYSPNEA ON EXERTION [id number] 03/31/2018 10:35:00 018 14:44:00 DIS Emergency AMY BENSON APRN [facility] ER LOWER LEFT SIDE PAIN,NA USEA,BLOODY STOOL [id number] 01/30/2018 20:24:00 018 21:44:00 DIS Emergency AMY BENSON APRN [facility] ER ABNORMAL EKG [id number] 01/27/2018 10:45:00 018 12:48:00 DIS Emergency JUHI PELLETIER, BARON Chan [facility] ER CP LAST NIGHT [id number] 09/22/2017 10:14:00 017 23:59:59 CLS Outpatient SOTERO VELASCO APRN [facility] RAD POST-TRAUMA,SWOLLEN; ER YTHEMATOUS [id number] 09/12/2017 14:35:00 017 17:48:00 DIS Inpatient ANDRAE PELLETIER, POWER Frazier [facility] 4TH SEPSIS,DIVERTICULITIS,F KEVEN OUTPT ABXS [id number] 07/27/2017 16:23:00 017 23:59:59 CLS Outpatient HEATHER SMITH APRN [facility] RT J30.2 SEASONAL ALLERGIES [id number] 07/18/2017 16:27:00 017 16:40:00 DIS Outpatient HEATHER SMITH APRN [facility] SLEEP G47.10 [id number] 05/17/2017 07:33:00 017 10:05:00 DIS Outpatient MARCELINA BRYAN DO [facility] ENDO REFLUX; SCREENING [id number] 05/13/2017 05:40:00 017 12:27:00 DIS Outpatient MARCELINA BRYAN DO [facility] PREOP REFLUX, SCREENING [id number] 04/06/2017 16:00:00 017 14:30:00 DIS Inpatient POWER ABEBE MD [facility] 4TH DIVERTICULITIS [id number] 03/24/2017 08:00:00 017 13:30:00 DIS Outpatient MARCELINA BRYAN DO [facility] SDC BILIARY DYSKINESIA [id number] 03/17/2017 09:37:00 017 11:06:00 DIS Outpatient MARCELINA BRYAN DO [facility] PREOP BILIARY DYSKENSIA [id number] 02/28/2017 12:06:00 017 23:59:59 CLS Outpatient NUZHAT FRANKS CFAVA [facility] CARD RUQ ABD PAIN [id number] 02/23/2017 13:12:00 017 23:59:59 CLS Outpatient NUZHAT FRANKS CFAVA [facility] RAD RUQ PAIN [id number] 12/26/2016 00:20:00 017 02:36:00 DIS Emergency JH PELLETIER, JERZY Flores [facility] ER R SIDE AND BACK PAIN [id number] 10/26/2016 20:55:00 10:45:00 DIS Inpatient ALCON LEE MD [facility] 4TH CHEST PAIN,HTN [id number] 09/05/2016 20:03:00 12:52:00 DIS Inpatient ALCON LEE MD [facility] 4TH ACUTE DIVERTICULITIS, I NTRACTABLE LLQ [id number] 09/02/2016 20:04:00 00:16:00 DIS Emergency ARNEL DO, PRINCESS K [facility] ER ABD PAIN [id number] 05/05/2016 10:40:00 23:59:59 CLS Outpatient NUZHAT FRANKS CFAAV [facility] [facility] RAD RUQ ABD PAIN [id number] 08/29/2015 15:25:00 17:15:00 DIS Emergency CYDNEY BEYER MD [facility] ER SOA,CP [id number] 05/09/2015 12:00:00 13:55:00 DIS Emergency JOSUE CUNNINGHAM [facility] ER R FOOT SWELLING/SPIDER BITE [id number] 11/16/2014 23:42:00 014 01:19:00 DIS Emergency VA GLEASON MD [facility] ER FALL;BACK PAIN [id number] 05/11/2012 07:49:00 Document Registration [id number] 02/27/2012 12:12:00 Document Registration [id number] 01/31/2020 14:20:00 01/31/2020 23:59:5 9 [facility] Outpatient NUZHAT FRANKS APRN [facility] [address] [place] [address] [id number] 01/11/2020 11:20:00 Document Registration [id number] 06/01/2018 08:00:00 Document Registration [id number] 02/06/2018 09:20:00 Document Registration
[2020-03-17] MEDS ORDERED: KETOROLAC 30 MG/ML VIAL IVP STA (15:01)
[2020-03-17 15:14] VITALS: BP 181/113
[2020-03-17] MEDS ORDERED: cloNIDine 0.1 MG (CATAPRES) TAB PO ONE (15:15)
== END 2020-03-17 15:14 | disposition home or self-care (01) ==
LOC: EDUNIT# 13:37 → ER 13:38
DX: N30.01 Acute cystitis with hematuria (principal); R10.32 Left lower quadrant pain; R11.2 Nausea with vomiting, unspecified; R19.7 Diarrhea, unspecified; F41.9 Anxiety disorder, unspecified; F32.9 Major depressive disorder, single episode, unspecified; R73.03 Prediabetes; M54.9 Dorsalgia, unspecified; G89.29 Other chronic pain; K21.9 Gastro-esophageal reflux disease without esophagitis; G43.909 Migraine, unspecified, not intractable, without status migrainosus; I10 Essential (primary) hypertension; J45.909 Unspecified asthma, uncomplicated; M25.561 Pain in right knee; M25.562 Pain in left knee; K75.81 Nonalcoholic steatohepatitis (NASH); F17.290 Nicotine dependence, other tobacco product, uncomplicated; Z79.899 Other long term (current) drug therapy; E66.9 Obesity, unspecified; Z88.6 Allergy status to analgesic agent
CPT/HCPCS: 36415; 80053; 81000; 82150; 83690; 84703; 85025; 86141; 87088